=== PATIENT | male | born 1940 | race Caucasian/White ===

== ENCOUNTER 2019-05-07 09:18 | Inpatient (IN) ==
--- NOTE | 2019-04-26 22:14 | PAT Medication Instructions ---
Medication Instructions Date of Service April 26, 2019 Home Medications aspirin 81 mg PO QAM glimepiride 2 mg PO QAM glimepiride 2 mg PO QAM levothyroxine 75 mcg PO QAM metformin 1,000 mg PO BID pantoprazole 40 mg PO QAM rosuvastatin 5 mg PO Q OTHER DAY DO NOT take the morning of surgery glimepiride 2 mg PO QAM glimepiride 2 mg PO QAM metformin 1,000 mg PO BID Take morning of surgery With a small sip of water, OTHERWISE NOTHING TO EAT OR DRINK AFTER MIDNIGHT: aspirin 81 mg PO QAM levothyroxine 75 mcg PO QAM pantoprazole 40 mg PO QAM rosuvastatin 5 mg PO Q OTHER DAY (if scheduled) Take evening before surgery metformin 1,000 mg PO BID Other Notes If you have any questions please call us at [phone] or [phone] or [phone] or [phone]
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
--- NOTE | 2019-04-27 09:14 | XRay Report ---
XR chest Pre-admission PA/Lat HISTORY: Preop. COMPARISON: Chest 08/16/2008. FINDINGS: The lungs are hyperexpanded with apical predominant emphysematous changes. The heart is nor mal in size. There are poststernotomy changes. Old, healed bilateral rib fractures. No pleural effusi ons. No pneumothorax. No focal lung consolidations to suggest pneumonia. An 8 mm nodular density with in the left lower lobe. This may represent a nipple shadow. Mild blunting of the right lateral costop hrenic sulcus. IMPRESSION: An 8 mm nodular density within the left lung base. This favors a nipple shadow. Repeat PA and lateral views of the chest with oblique views and nipple markers are recommended for confirmation. This find ing was called/faxed to the referring physician office following dictation. Electronically signed by: Chun Walker M.D. 04/27/2019 9:13 AM
[2019-04-27 10:54] LABS: Basophils # (auto) 0.01 K/uL (0-0.2); Basophils % (auto) 0.1 %; Eosinophils # (auto) 0.08 K/uL (0-0.5); Eosinophils % (auto) 1.1 %; Hematocrit (blood only) 41.1 % (42-52); Hemoglobin 14.3 g/dL (14.0-18.0); Immature Granulocytes # (auto) 0.02 K/uL (0.00-0.02); Immature Granulocytes % (auto) 0.3 %; Lymphocytes # (auto) 1.49 K/uL (1.2-3.4); Lymphocytes % (auto) 20.1 %; Mean Corpuscular Hemoglobin 34.1 pg (25-34); Mean Corpuscular Hgb Conc 34.8 g/dL (32-36); Mean Corpuscular Volume 98.1 fL (80-100); Mean Platelet Volume 9.7 fL (7.4-10.4); Monocytes # (auto) 0.94 K/uL (0.11-0.59); Monocytes % (auto) 12.7 %; Neutrophils # (auto) 4.86 K/uL (1.4-6.5); Neutrophils % (auto) 65.7 %; Platelet Count 259 K/uL (130-400); RDW Coefficient of Variation 13.2 % (11.5-14.5); RDW Standard Deviation 46.9 fL (36.4-46.3); Red Blood Count 4.19 M/uL (4.7-6.1)
[2019-04-27 11:05] LABS: Appearance Urine Clear (Clear); Blood Urine Negative (Negative); Color Urine Dark Yellow; Glucose Urine UA Negative (Negative); Ketones Urine Trace (Negative); Leukocyte Esterase Urine Negative (Negative); Nitrite Urine Negative (Negative); Protein Urine Negative (Negative); Specific Gravity Urine 1.025 (1.000-1.030); Urobilinogen Urine Negative (Negative)
[2019-04-27 11:07] LABS: BUN Creatinine Ratio 21.3 (10-20); Calcium 9.7 mg/dl (8.5-10.1); Creatinine Clr Calc Pharmacy 58.2 ml/min; Est GFR (African American) 73.6; Est GFR (Non-African American) 63.5; Potassium 4.1 mmol/L (3.5-5.1)
[2019-04-27 11:08] LABS: INR 1.1 (0.9-1.1); Partial Thromboplastin Ratio 0.9; Partial Thromboplastin Time 24.9 Seconds (21.0-31.0); Prothrombin Time 10.9 Seconds (9.0-12.0)
[2019-04-27 11:24] LABS: Bilirubin Urine Negative (Negative); Ictotest Urine Negative (Negative)
[2019-04-27 11:30] LABS: Estimated Average Glucose 111 mg/dl; Hemoglobin A1C 5.5 % (4.5-5.6)
[~2019-05-07 09:18] MED LIST: ACETAMINOPHEN 500 MG TAB PO SCH; CLINDAMYCIN 600 MG/54 ML BAG IV SCH; CeleBREX 200 MG CAP PO SCH; GABAPENTIN 300 MG CAP PO SCH; LR 15ML/HR IV SCH
--- NOTE | 2019-05-07 10:40 | History & Physical Bridge Note ---
Date of Service May 07, 2019 History & Physical Bridge Note I have examined the patient, reviewed the History & Physical and in the interval since the performance of the History & Physical I have noted the following changes of clinical significance: no changes noted
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
[2019-05-07] MEDS ORDERED: MIDAZOLAM HCL 1 MG/ML 2ML VIAL ONE (10:45)
[2019-05-07] MEDS ORDERED: fentaNYL citrate 100 MCG/2 ML VIAL ONE (10:45)
[2019-05-07] MEDS ORDERED: LIDOCAINE HCL 2% 2 ML VIAL/AMP(20MG/ML) INFIL ONE (10:47)
[2019-05-07] MEDS ORDERED: PROPOFOL IV EMULSION 10 MG/ML 20 ML VIAL IV ONE (10:47)
[2019-05-07] MEDS ORDERED: BUPIVACAINE/EPINEPHRINE 0.5% MPF 1:200,000 10 ML VIAL ONE (10:57)
[2019-05-07] MEDS ORDERED: BACITRACIN INJ 50,000 UNIT VIAL ONE (10:57)
[2019-05-07] MEDS ORDERED: HYDROmorphone INJ 2 MG/ML SYR/VIAL IV PRN (11:04)
[2019-05-07] MEDS ORDERED: PROMETHAZINE HCL 12.5 MG in SODIUM CHLORIDE 0.9% 50 ML IV PRN ×2 (11:04→15:51)
[2019-05-07] MEDS ORDERED: ATROPINE SULFATE 0.1 MG/ML 10ML SYR IV PRN (11:04)
[2019-05-07] MEDS ORDERED: fentaNYL citrate 100 MCG/2 ML VIAL IV PRN (11:04)
[2019-05-07] MEDS ORDERED: ePHEDrine sulfate 50 MG/ML AMP IV PRN (11:04)
[2019-05-07] MEDS ORDERED: METOCLOPRAMIDE HCL INJ 5 MG/ML 2 ML VIAL IV PRN ×2 (11:04→15:51)
[2019-05-07] MEDS ORDERED: ONDANSETRON INJ 2 MG/ML 2 ML VIAL IV PRN ×2 (11:04→15:51)
[2019-05-07] MEDS ORDERED: ROCURONIUM BROMIDE 10 MG/ML 5 ML VIAL ONE (12:04)
[2019-05-07] MEDS ORDERED: GLYCOPYRROLATE 0.2 MG/ML VIAL ONE (12:04)
[2019-05-07] MEDS ORDERED: ONDANSETRON INJ 2 MG/ML 2 ML VIAL ONE (12:04)
[2019-05-07] MEDS ORDERED: NEOSTIGMINE METHYLSULFATE 1 MG/ML 10ML VIAL ONE (12:04)
[2019-05-07] MEDS ORDERED: DEXAMETHASONE SOD INJ 4 MG/ML VIAL ONE (12:04)
[2019-05-07] MEDS ORDERED: FLOSEAL HEMOSTATIC MATRIX 10ML TOP ONE (12:14)
[2019-05-07] MEDS ORDERED: ALBUMIN HUMAN 5% 12.5 GM/250 ML VIAL IV ONE (13:34)
--- NOTE | 2019-05-07 14:17 | Operative Report ---
Post Operative Report Pre & Post Diagnosis Operation Date: 05/07/19 11:45 Pre-Op Diagnosis: LUMBAR SPINAL STENOSIS W/NEUROGENIC CLAUDICATION Post-Op Diagnosis: LUMBAR SPINAL STENOSIS W/NEUROGENIC CLAUDICATION I identified the patient and participated in the time-out.: Yes Procedure Operation Date: 05/07/19 11:45 Actual Procedures #1 lumbar decompression with bilateral medial facetectomies and foraminotomies L3-4 L4-5 L5-S1. #2 posterior spinal fusion L3-4 L4-5 L5-S1. #3 placement posterior segmental instrumentation L3-S1. #4 interbody fusion L4-5. #5 placement of peek cage 11 x 26 mm at L4-5 per #6 placement of locally harvested morselized autograft in the posterior lateral gutters. #7 placement infuse collagen sponge, master graft in the posterior lateral gutters and ostial amp in the interbody space. Surgeon Tyler Little, Program Associate [place] Estimated Blood Loss 400 Findings Consistent with Post-Op Diagnosis Specimens None Indications This is a 78-year-old male that presents above-mentioned diagnosis after failing extensive course of nonoperative care is here for surgical intervention. Description of Procedure Patient was met with identified informed consent obtained. Patient was then taken to the operative suite underwent intubation placed in a prone position the Ignacio table on top of the Pablo frame. All bony prominences well-padded eyes inspected to ensure no external pressure placed upon them. This point the lumbar spine was prepped and draped in normal sterile fashion. Sharp dissection with the assistance of Bovie cautery was performed down to and exposing the lamina and transverse processes of L3 L4-5 and sacral ala bilaterally. From caudal cephalad fashion complete laminectomy of L5 L4 L3 was performed including bilateral medial facetectomies and foraminotomies addressing severe spinal stenosis. Pedicle screw was then placed in L3-L4-L5 and S1 levels bilaterally with assistance of fluoroscopy the purposes stephania placed. By way of a transforaminal portion left complete discectomy of L4-5 was performed endplates curetted to subcortical being bone and a 11 x 26 mm peek cage filled with osteo- bone graft tapped in position. The rods were then locked in final position bilaterally. The transverse processes of L3 L4-5 and sacral ala burred to subcortical bleeding bone. Infuse bone placed in the posterior lateral gutters. 15 round NELY drain inserted. Incision was then closed with 1 Vicryl fascia 2-0 Vicryl subcutaneously and 4 Monocryl for final skin closure. Steri-Strips dressings placed. Patient will continue PACU stable addition. Please note [place] was present at the entire procedure involved in patient positioning complex portions of the surgery and final skin closure. Lastly spinal cord monitoring was utilized that the procedure no changes noted. I attest to the content of the Intraoperative Record and any orders documented therein. Any exceptions are noted below.
--- NOTE | 2019-05-07 14:20 | Fluoroscopy Report ---
FL lumbar spine 2-3V CLINICAL HISTORY: 78 years-old Male presenting with L3-S1 DECOMPRESSION AND FUSION. TECHNIQUE: 2 fluoroscopic image(s) recorded as part of an intraoperative procedure. COMPARISON: None. FINDINGS/IMPRESSION: Posterior bilateral transpedicular screw and stephania fixation extending from L3 to S1 with interbody spac er at L4-5 and laminectomy defects at L4 and L5. Mild scoliotic curvature and multilevel degenerative changes evident. Please see surgical report for further details. Fluoroscopy dosage (mGy): 24.60. Fluoroscopy time: 31.4 seconds. Number or time of high level fluoroscopy (HLF), digital spot, or digital subtraction images: 0. ACT 112: Negative or not required by law. Electronically signed by: Joel Talamantes M.D. 05/07/2019 2:19 PM
[2019-05-07] MEDS ORDERED: ONDANSETRON 4 MG OD TAB PO PRN (15:51)
[2019-05-07] MEDS ORDERED: LORazepam 0.5 MG/1 ML VIAL IV PRN (15:51)
[2019-05-07] MEDS ORDERED: LORazepam 0.5 MG TAB PO PRN (15:51)
[2019-05-07] MEDS ORDERED: HYDROmorphone INJ 0.5 MG/0.5 ML SYR IV PRN (15:51)
[2019-05-07] MEDS ORDERED: OXYCODONE HCL IR 5 MG TAB (IMMEDIATE RELEASE) PO PRN (15:51)
[2019-05-07] MEDS ORDERED: ACETAMINOPHEN 500 MG TAB PO PRN (15:51)
[2019-05-07] MEDS ORDERED: MAGNESIUM HYDROXIDE SUSP 30 ML UDC PO PRN (15:51)
[2019-05-07] MEDS ORDERED: DO NOT ADMINISTER FLU VACCINE PRN (15:51)
[2019-05-07] MEDS ORDERED: NALOXONE HCL 0.4 MG/1 ML VIAL/CARP IV PRN (15:51)
[2019-05-07] MEDS ORDERED: HYDROmorphone INJ 1 MG/ML SYRINGE IV PRN (15:51)
[2019-05-07] MEDS ORDERED: FAMOTIDINE 20 MG TAB PO PRN (15:51)
[2019-05-07] MEDS ORDERED: SOD PHOSPHATE/SOD BIPHOSPHATE ENEMA 132 ML BTL PR PRN (15:51)
[2019-05-07] MEDS ORDERED: ALUMINUM/MAGNESIUM SUSP 30 ML UDC PO PRN (15:51)
[2019-05-07] MEDS ORDERED: bisacodyL 10 MG SUPP PR PRN (15:51)
[2019-05-07] MEDS ORDERED: DO NOT ADMINISTER PNEUMOCOCCAL VACCINE PRN (15:51)
[2019-05-07] MEDS ORDERED: ACETAMINOPHEN 1,000 MG/100 ML VIAL IV PRN (15:51)
--- NOTE | 2019-05-07 16:32 | Anesthesiology Progress Note ---
Date of Service May 07, 2019 Anesthesia Post Procedure Vital Signs Vital Signs: Temp Pulse Pulse Pulse Resp BP BP 05/07/19 16:10 87 15 123/74 05/07/19 15:40 36.3 C L 82 14 114/68 05/07/19 15:29 36.4 C L 05/07/19 15:26 83 14 05/07/19 15:25 84 14 121/68 05/07/19 15:21 89 17 05/07/19 15:20 80 17 113/65 05/07/19 15:16 85 15 05/07/19 15:15 83 12 123/72 05/07/19 15:11 88 16 05/07/19 15:10 83 13 127/70 05/07/19 15:06 82 19 05/07/19 15:05 87 18 126/70 05/07/19 15:01 84 15 05/07/19 15:00 87 14 129/72 05/07/19 14:56 83 13 05/07/19 14:55 89 14 128/71 05/07/19 14:51 88 16 05/07/19 14:50 84 14 115/72 05/07/19 14:46 89 21 05/07/19 14:45 87 26 H 116/62 05/07/19 14:44 36.1 C L 84 85 30 H 125/65 125/65 05/07/19 09:59 36.6 C 69 18 158/71 H Pulse Ox 05/07/19 16:10 96 05/07/19 15:40 100 05/07/19 15:29 100 05/07/19 15:26 100 05/07/19 15:25 100 05/07/19 15:21 100 05/07/19 15:20 100 05/07/19 15:16 100 05/07/19 15:15 100 05/07/19 15:11 100 05/07/19 15:10 100 05/07/19 15:06 100 05/07/19 15:05 99 05/07/19 15:01 98 05/07/19 15:00 99 05/07/19 14:56 100 05/07/19 14:55 99 05/07/19 14:51 98 05/07/19 14:50 98 05/07/19 14:46 100 05/07/19 14:45 100 05/07/19 14:44 100 05/07/19 09:59 100 Pain Intensity Back: Pain Intensity: 0 Transfer of Care Handoff Completed per policy Notes Mental Status: alert / awake / arousable and participated in evaluation Patient Amnestic to Procedure: Yes Nausea / Vomiting: adequately controlled Pain: adequately controlled Airway Patency, RR, SpO2: stable & adequate BP & HR: stable & adequate Hydration State: stable & adequate Anesthetic Complications: no major complications apparent
[2019-05-07] MEDS ORDERED: GLUCOSE 40% GEL 15 GM TUBE PO PRN (17:41)
[2019-05-07] MEDS ORDERED: CARBOHYDRATES FOR HYPOGLYCEMIA PO PRN (17:41)
[2019-05-07] MEDS ORDERED: GLUCOSE 10 TABS/TUBE PO PRN (17:41)
[2019-05-07] MEDS ORDERED: DEXTROSE 50% 50 ML SYRINGE IV PRN (17:41)
[2019-05-07] MEDS ORDERED: GLUCAGON FOR INJ 1 MG VIAL SQ PRN (17:41)
[2019-05-07] MEDS ORDERED: LANTUS PER UNIT CHARGE SQ ONE (18:00)
[2019-05-07] MEDS: CEFAZOLIN 2000MG 2,000 MG/15 ML SYR IV SCH (18:06)
[2019-05-07] MEDS: INSULIN ASPART 100 UNITS/ML 3 ML PEN SC SCH ×2 (18:39→20:59)
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
[2019-05-07] MEDS: SODIUM CHLORIDE 0.9% 1000ML 1,000 ML IV SCH (20:57)
[2019-05-07] MEDS: DOCUSATE SODIUM/SENNA 50/8.6MG TAB PO SCH (20:59)
[2019-05-08] MEDS: CEFAZOLIN 2000MG 2,000 MG/15 ML SYR IV SCH (00:07)
[2019-05-08] MEDS: SODIUM CHLORIDE 0.9% 1000ML 1,000 ML IV SCH (03:59)
[2019-05-08] MEDS: POLYETHYLENE (MIRALAX) 17 GM PACK PO SCH ×4 (05:56→23:55)
[2019-05-08] MEDS: LEVOTHYROXINE SODIUM 75 MCG TABLET PO SCH (05:56)
[2019-05-08 06:37] LABS: Basophils # (auto) 0.01 K/uL (0-0.2); Basophils % (auto) 0.1 %; Eosinophils # (auto) 0.04 K/uL (0-0.5); Eosinophils % (auto) 0.4 %; Hematocrit (blood only) 26.4 % (42-52); Hemoglobin 9.3 g/dL (14.0-18.0); Immature Granulocytes # (auto) 0.02 K/uL (0.00-0.02); Immature Granulocytes % (auto) 0.2 %; Lymphocytes # (auto) 1.54 K/uL (1.2-3.4); Lymphocytes % (auto) 17.3 %; Mean Corpuscular Hemoglobin 34.2 pg (25-34); Mean Corpuscular Hgb Conc 35.2 g/dL (32-36); Mean Corpuscular Volume 97.1 fL (80-100); Mean Platelet Volume 9.2 fL (7.4-10.4); Monocytes # (auto) 1.03 K/uL (0.11-0.59); Monocytes % (auto) 11.6 %; Neutrophils # (auto) 6.27 K/uL (1.4-6.5); Neutrophils % (auto) 70.4 %; Platelet Count 162 K/uL (130-400); RDW Coefficient of Variation 13.2 % (11.5-14.5); RDW Standard Deviation 45.8 fL (36.4-46.3); Red Blood Count 2.72 M/uL (4.7-6.1); White Blood Count 8.91 K/uL (4.8-10.8)
[2019-05-08 07:11] LABS: BUN Creatinine Ratio 16.9 (10-20); Est GFR (African American) 75.2; Est GFR (Non-African American) 64.9
[2019-05-08] MEDS ORDERED: SODIUM CHLORIDE 0.9% 1000ML 1,000 ML IV ONE ×2 (08:38→21:41)
[2019-05-08] MEDS: ASPIRIN 81 MG CHEW PO SCH (08:50)
[2019-05-08] MEDS: PANTOprazole 40 MG TAB PO SCH (08:50)
[2019-05-08] MEDS: INSULIN ASPART 100 UNITS/ML 3 ML PEN SC SCH ×4 (08:51→21:02)
[2019-05-08] MEDS ORDERED: GLIMEPIRIDE 2 MG TAB PO SCH (09:00)
--- NOTE | 2019-05-08 09:22 | Hospitalist Progress Note ---
Date of Service May 08, 2019 Assessment & Plan (1) Spinal stenosis, lumbar region with neurogenic claudication: - POD#1 L3-S1 decompression and fusion by Dr. Little - activity and wound care orders as per ortho - pain control with bowel regimen - PT/OT - monitor H/H for acute blood loss anemia and transfuse blood products PRN Acute blood loss anemia -On admission hemoglobin 14.3, currently 9.3 -Patient has no chest pain, palpitation, shortness of breath however he felt lightheaded this morning -Says he often gets lightheaded when changing position, from sitting to standing - EBL 420 cc - H&H ordered stat, will monitor Orthostatic hypotension -Patient has history of orthostatic hypotension, says that he lies in recliner, and when he is getting up he needs to wait and stand up slowly -We will continue to monitor (2) Diabetes mellitus, type 2: -Hgb A1c 5.5 09/2018 -Hold home oral agents and utilize Lantus and NovoLog per protocol hospitalized -Monitor closely for hyperglycemia due to steroids received intraoperatively (3) CAD (coronary artery disease): -Appears stable, no reports of chest pain -Continue aspirin and statin -Not on beta-klever, ABILIO/ARB secondary to bradycardia and hypotension in the past -Follows with [facility] cardiology (4) GERD (gastroesophageal reflux disease): -Continue PPI (5) DVT prophylaxis: -Teds/SCDs as per spine orthopedics Thank you for this consultation. We will follow the patient with you during their hospital stay. You can reach a member of the [facility]ist Team 09/12 via pager @ [phone]. Subjective This morning patient was sitting up in the bed, and felt " not himself", per description patient became lightheaded, and nurse was notified. Blood pressure was checked at the time, which was significantly low, not currently recorded in the chart, however reported as systolic blood pressure in 60s. Soon after though patient felt himself again, physician was notified and normal saline bolus was ordered. At this moment, some of the normal saline has been infused, patient is sitting up in bed, ate his breakfast, alert oriented and feeling well. Per the last set of vitals from his nurse, blood pressure 116/69, heart rate 94, 100% on room air. However per review of his chart, his hemoglobin is now just above 9, on admission hemoglobin was above 14. Patient underwent back surgery, has the drain placed, total of 420cc serosanguineous fluid has drained. Currently there is about 50 cc in his drain, which was exchanged at 6 AM. Normal saline infusion was stopped, H&H stat was ordered. Review of Systems 2 Review of Systems: All systems reviewed & are unremarkable except as noted in HPI & below Constitutional: + fatigue; no fever and no chills Respiratory: no cough, no dyspnea and no pain on inspiration Cardiovascular: no chest pain, no palpitations and no edema Gastrointestinal: no abdominal pain, no nausea and no vomiting Physical Exam Physical Exam: Constitutional: Elderly male, sitting up in bed, currently in no acute distress Eyes: PERRL, EOMI, conjunctivae normal, anicteric sclerae ENMT: external ear and nose normal, oropharynx normal Respiratory: normal respiratory effort, lungs clear to auscultation Cardiovascular: regular rate and regular rhythm Vessels: normal peripheral pulses Extremities: no edema Gastrointestinal (Abdomen): normal bowel sounds, soft, nontender, nondistended, no guarding Musculoskeletal: no cyanosis or clubbing, extremities motor strength 5/5 S/p back surgery, moves extremities spontaneously without difficulty, drain in place draining serosang. fluid (now about 50cc / in last 3.5hrs) Back: clean dressings applied over lower spine, no sign edema, erythema noted Skin: no rashes, warm and dry Neurologic: PERRL, EOMI, accommodation nl, no face palsy, no dysarthria Psychiatric: A+Ox3, euthymic affect Results & Data Vital Signs (Past 12 Hours) Vital Signs Temp Pulse Resp BP Pulse Ox 05/08/19 07:28 36.8 C 88 16 110/59 L 98 05/08/19 02:53 36.7 C 86 16 102/63 99 05/08/19 00:08 36.5 C 05/07/19 22:54 83 16 104/67 96 Laboratory Results 05/08/19 05/08/19 05/07/19 Range/Units 06:09 06:09 20:49 WBC 8.91 (4.8-10.8) K/uL RBC 2.72 L (4.7-6.1) M/uL Hgb 9.3 L (14.0-18.0) g/dL Hct 26.4 L (42-52) % MCV 97.1 (80-100) fL MCH 34.2 H (25-34) pg MCHC 35.2 (32-36) g/dL RDW Std Deviation 45.8 (36.4-46.3) fL RDW Coeff of Mara 13.2 (11.5-14.5) % Plt Count 162 (130-400) K/uL MPV 9.2 (7.4-10.4) fL Immature Gran % (Auto) 0.2 % Neut % (Auto) 70.4 % Lymph % (Auto) 17.3 % Wilson % (Auto) 11.6 % Eos % (Auto) 0.4 % Baso % (Auto) 0.1 % Immature Gran # (Auto) 0.02 (0.00-0.02) K/uL Neut # (Auto) 6.27 (1.4-6.5) K/uL Lymph # (Auto) 1.54 (1.2-3.4) K/uL Wilson # (Auto) 1.03 H (0.11-0.59) K/uL Eos # (Auto) 0.04 (0-0.5) K/uL Baso # (Auto) 0.01 (0-0.2) K/uL Sodium 134 L (136-145) mmol/L Potassium 4.0 (3.5-5.1) mmol/L Chloride 100 (98-107) mmol/L Carbon Dioxide 29 (21-32) mmol/L Anion Gap 5.0 (3-11) BUN 19 H (7-18) mg/dl Creatinine 1.10 (0.6-1.4) mg/dl Est Cr Clr Drug Dosing 60.0 ml/min Est GFR ( Amer) 75.2 Est GFR (Non-Af Amer) 64.9 BUN/Creatinine Ratio 16.9 (10-20) Glucose 134 H (70-99) mg/dl POC Glucose 238 H (70-99) Calcium 8.0 L (8.5-10.1) mg/dl Blood Type Antibody Screen Crossmatch 05/07/19 05/07/19 05/07/19 Range/Units 17:21 15:03 09:53 WBC (4.8-10.8) K/uL RBC (4.7-6.1) M/uL Hgb (14.0-18.0) g/dL Hct (42-52) % MCV (80-100) fL MCH (25-34) pg MCHC (32-36) g/dL RDW Std Deviation (36.4-46.3) fL RDW Coeff of Mara (11.5-14.5) % Plt Count (130-400) K/uL MPV (7.4-10.4) fL Immature Gran % (Auto) % Neut % (Auto) % Lymph % (Auto) % Wilson % (Auto) % Eos % (Auto) % Baso % (Auto) % Immature Gran # (Auto) (0.00-0.02) K/uL Neut # (Auto) (1.4-6.5) K/uL Lymph # (Auto) (1.2-3.4) K/uL Wilson # (Auto) (0.11-0.59) K/uL Eos # (Auto) (0-0.5) K/uL Baso # (Auto) (0-0.2) K/uL Sodium (136-145) mmol/L Potassium (3.5-5.1) mmol/L Chloride (98-107) mmol/L Carbon Dioxide (21-32) mmol/L Anion Gap (3-11) BUN (7-18) mg/dl Creatinine (0.6-1.4) mg/dl Est Cr Clr Drug Dosing ml/min Est GFR ( Amer) Est GFR (Non-Af Amer) BUN/Creatinine Ratio (10-20) Glucose (70-99) mg/dl POC Glucose 183 H 155 H 101 H (70-99) Calcium (8.5-10.1) mg/dl Blood Type Antibody Screen Crossmatch 05/07/19 Range/Units 09:52 WBC (4.8-10.8) K/uL RBC (4.7-6.1) M/uL Hgb (14.0-18.0) g/dL Hct (42-52) % MCV (80-100) fL MCH (25-34) pg MCHC (32-36) g/dL RDW Std Deviation (36.4-46.3) fL RDW Coeff of Mara (11.5-14.5) % Plt Count (130-400) K/uL MPV (7.4-10.4) fL Immature Gran % (Auto) % Neut % (Auto) % Lymph % (Auto) % Wilson % (Auto) % Eos % (Auto) % Baso % (Auto) % Immature Gran # (Auto) (0.00-0.02) K/uL Neut # (Auto) (1.4-6.5) K/uL Lymph # (Auto) (1.2-3.4) K/uL Wilson # (Auto) (0.11-0.59) K/uL Eos # (Auto) (0-0.5) K/uL Baso # (Auto) (0-0.2) K/uL Sodium (136-145) mmol/L Potassium (3.5-5.1) mmol/L Chloride (98-107) mmol/L Carbon Dioxide (21-32) mmol/L Anion Gap (3-11) BUN (7-18) mg/dl Creatinine (0.6-1.4) mg/dl Est Cr Clr Drug Dosing ml/min Est GFR ( Amer) Est GFR (Non-Af Amer) BUN/Creatinine Ratio (10-20) Glucose (70-99) mg/dl POC Glucose (70-99) Calcium (8.5-10.1) mg/dl Blood Type A Negative Antibody Screen NEGATIVE Crossmatch See Detail
--- NOTE | 2019-05-08 09:31 | Orthopedic Progress Note ---
Date of Service May 08, 2019 Assessment & Plan (1) Spinal stenosis, lumbar region with neurogenic claudication: At this time will initiate physical therapy monitor NELY output hopefully discharge home early next week. Present on Admission?: Yes Physical Exam Physical Exam: Back pain controlled leg symptoms improved. Is comfortable has good strength testing. Results & Data Vital Signs (Past 12 Hours) Vital Signs Temp Pulse Resp BP Pulse Ox 05/08/19 07:28 36.8 C 88 16 110/59 L 98 05/08/19 02:53 36.7 C 86 16 102/63 99 05/08/19 00:08 36.5 C 05/07/19 22:54 83 16 104/67 96
[2019-05-08 10:02] LABS: Hemoglobin 9.2 g/dL (14.0-18.0)
[2019-05-08] MEDS ORDERED: SODIUM CHLORIDE 0.9% 1000ML 1,000 ML IV SCH (10:15)
--- NOTE | 2019-05-08 16:15 | Anesthesiology Progress Note ---
Date of Service May 08, 2019 Anesthesia Post Procedure Vital Signs Vital Signs: Temp Pulse Resp BP Pulse Ox 05/08/19 15:39 37.2 C 98 H 17 118/68 97 05/08/19 10:15 86 117/68 05/08/19 08:55 94 H 16 116/69 100 05/08/19 08:35 111 H 94/59 L 05/08/19 08:30 105 H 76/58 L 05/08/19 08:25 114 H 79/39 L 05/08/19 08:20 114 H 18 65/54 L 05/08/19 07:28 36.8 C 88 16 110/59 L 98 05/08/19 02:53 36.7 C 86 16 102/63 99 05/08/19 00:08 36.5 C 05/07/19 22:54 83 16 104/67 96 05/07/19 18:54 36.6 C 87 15 104/65 95 05/07/19 17:40 36.4 C L 96 H 18 153/82 H 100 05/07/19 16:41 36.4 C L 86 16 114/70 100 Pain Intensity Back: Pain Intensity: 0 Transfer of Care Handoff Completed per policy Notes Mental Status: alert / awake / arousable and participated in evaluation Patient Amnestic to Procedure: Yes Nausea / Vomiting: adequately controlled Pain: adequately controlled Airway Patency, RR, SpO2: stable & adequate BP & HR: stable & adequate Hydration State: stable & adequate Anesthetic Complications: no major complications apparent
[2019-05-08 16:37] LABS: Hematocrit (blood only) 24.8 % (42-52); Hemoglobin 8.7 g/dL (14.0-18.0)
[2019-05-08] MEDS: TRAMADOL HCL 50 MG TABLET PO PRN (17:33)
[2019-05-08] MEDS: DOCUSATE SODIUM/SENNA 50/8.6MG TAB PO SCH (21:01)
[2019-05-08] MEDS: ROSUVASTATIN CALCIUM 5 MG TAB PO SCH (21:01)
[2019-05-08 22:54] LABS: Calcium 7.9 mg/dl (8.5-10.1); Creatinine Clr Calc Pharmacy 57.4 ml/min; Est GFR (African American) 71.2; Est GFR (Non-African American) 61.5; Magnesium 1.7 mg/dl (1.8-2.4)
[2019-05-09] MEDS ORDERED: MAGNESIUM SULFATE / D5W 1 GM/100 ML BAG IV ONE (00:15)
[2019-05-09] MEDS ORDERED: NSS + 20MEQ KCL 20 MEQ/1,000 ML BAG IV ONE (00:16)
[2019-05-09 05:58] LABS: Hematocrit (blood only) 25.7 % (42-52); Hemoglobin 9.2 g/dL (14.0-18.0); Mean Corpuscular Hemoglobin 34.7 pg (25-34); Mean Corpuscular Hgb Conc 35.8 g/dL (32-36); Mean Platelet Volume 9.1 fL (7.4-10.4); Platelet Count 154 K/uL (130-400); RDW Coefficient of Variation 13.4 % (11.5-14.5); RDW Standard Deviation 47.3 fL (36.4-46.3); Red Blood Count 2.65 M/uL (4.7-6.1); White Blood Count 10.97 K/uL (4.8-10.8)
[2019-05-09] MEDS: LEVOTHYROXINE SODIUM 75 MCG TABLET PO SCH (06:14)
[2019-05-09] MEDS: POLYETHYLENE (MIRALAX) 17 GM PACK PO SCH ×3 (06:14→17:44)
[2019-05-09 06:32] LABS: BUN Creatinine Ratio 16.6 (10-20); Calcium 8.5 mg/dl (8.5-10.1); Creatinine Clr Calc Pharmacy 62.3 ml/min; Est GFR (African American) 78.6; Est GFR (Non-African American) 67.8; Potassium 4.1 mmol/L (3.5-5.1)
[2019-05-09] MEDS ORDERED: TAMSULOSIN HCL 0.4 MG CAP PO ONE (07:51)
--- NOTE | 2019-05-09 07:54 | Hospitalist Progress Note ---
Date of Service May 09, 2019 Assessment & Plan (1) Spinal stenosis, lumbar region with neurogenic claudication: - POD#2 L3-S1 decompression and fusion by Dr. Little - activity and wound care orders as per ortho, patient ambulating in the hallway today (05/09) - pain control, bowel regimen - PT/OT - monitor H/H for acute blood loss anemia and transfuse blood products PRN Acute blood loss anemia -On admission hemoglobin 14.3, currently ~9 (stable since yesterday) -Patient has no chest pain, palpitations, shortness of breath however he felt lightheaded yesterday, denies any dizziness or lightheadedness today -Says he often gets lightheaded when changing position, from sitting to standing - EBL total 610 cc - H&H re-checked - stable, will cont. monitor - Recommend to follow-up with his PCP, and obtain CBC within 1 week Orthostatic hypotension -Patient has history of orthostatic hypotension, says that he lies in recliner, and when he is getting up he needs to wait and stand up slowly -We will continue to monitor, no issues today (05/09) (2) Diabetes mellitus, type 2: -Hgb A1c 5.5 09/2018 -Hold home oral agents and utilize Lantus and NovoLog per protocol hospitalized -Monitor closely for hyperglycemia due to steroids received intraoperatively (3) CAD (coronary artery disease): -Appears stable, no reports of chest pain -Continue aspirin and statin -Not on beta-klever, ABILIO/ARB secondary to bradycardia and hypotension in the past -Follows with [facility] cardiology (4) GERD (gastroesophageal reflux disease): -Continue PPI (5) DVT prophylaxis: -Teds/SCDs as per spine orthopedics Thank you for this consultation. We will follow the patient with you during their hospital stay. You can reach a member of the [facility] Hospitalist Team 09/12 via pager @ [phone]. Subjective No acute events overnight. Patient is walking in the hallway, without much difficulty, coming back to room so I could examine him. Sits in the chair, denies any chest pain, shortness of breath, nausea, lightheadedness or dizziness. Also denies any abdominal pain, no BM yet, but passing flatus. Yesterday difficulty voiding, after Jenkins removed. Voided by himself then this morning. Review of Systems Review of Systems: All systems reviewed & are unremarkable except as noted in HPI & below Constitutional: no fever, no chills and no fatigue Respiratory: no cough, no dyspnea and no pain on inspiration Cardiovascular: no chest pain, no palpitations and no edema Gastrointestinal: no abdominal pain, no nausea and no vomiting Physical Exam Physical Exam: Constitutional: Elderly male, sitting up in chair (walking in hallway right before), currently in no acute distress Eyes: PERRL, EOMI, conjunctivae normal, anicteric sclerae ENMT: external ear and nose normal, oropharynx normal Respiratory: normal respiratory effort, lungs clear to auscultation Cardiovascular: regular rate and regular rhythm Vessels: normal peripheral pulses Extremities: no edema Gastrointestinal (Abdomen): normal bowel sounds, soft, nontender, nondistended, no guarding Musculoskeletal: no cyanosis or clubbing, extremities motor strength 5/5 S/p back surgery, moves extremities spontaneously without difficulty, drain in place draining serosang. fluid Back: clean dressings applied over lower spine, no sign edema, erythema noted Skin: no rashes, warm and dry Neurologic: PERRL, EOMI, accommodation nl, no face palsy, no dysarthria Psychiatric: A+Ox3, euthymic affect Results & Data Vital Signs (Past 12 Hours) Vital Signs Temp Pulse Resp BP Pulse Ox 05/09/19 07:18 36.8 C 86 18 93/52 L 99 05/08/19 23:15 37.1 C 94 H 16 114/66 100 05/08/19 21:28 110 H 102/62 05/08/19 21:25 128 H 79/37 L Laboratory Results 05/09/19 05/09/19 05/08/19 Range/Units 05:46 05:46 22:29 WBC 10.97 H (4.8-10.8) K/uL RBC 2.65 L (4.7-6.1) M/uL Hgb 9.2 L (14.0-18.0) g/dL Hct 25.7 L (42-52) % MCV 97.0 (80-100) fL MCH 34.7 H (25-34) pg MCHC 35.8 (32-36) g/dL RDW Std Deviation 47.3 H (36.4-46.3) fL RDW Coeff of Mara 13.4 (11.5-14.5) % Plt Count 154 (130-400) K/uL MPV 9.1 (7.4-10.4) fL Sodium 136 (136-145) mmol/L Potassium 4.1 (3.5-5.1) mmol/L Chloride 105 (98-107) mmol/L Carbon Dioxide 25 (21-32) mmol/L Anion Gap 6.0 (3-11) BUN 18 (7-18) mg/dl Creatinine 1.06 (0.6-1.4) mg/dl Est Cr Clr Drug Dosing 62.3 ml/min Est GFR ( Amer) 78.6 Est GFR (Non-Af Amer) 67.8 BUN/Creatinine Ratio 16.6 (10-20) Glucose 208 H (70-99) mg/dl POC Glucose (70-99) Lactate 1.8 (0.4-2.0) mmol/L Calcium 8.5 (8.5-10.1) mg/dl Magnesium (1.8-2.4) mg/dl 05/08/19 05/08/19 05/08/19 Range/Units 22:29 20:43 17:14 WBC (4.8-10.8) K/uL RBC (4.7-6.1) M/uL Hgb (14.0-18.0) g/dL Hct (42-52) % MCV (80-100) fL MCH (25-34) pg MCHC (32-36) g/dL RDW Std Deviation (36.4-46.3) fL RDW Coeff of Mara (11.5-14.5) % Plt Count (130-400) K/uL MPV (7.4-10.4) fL Sodium 135 L (136-145) mmol/L Potassium 4.0 (3.5-5.1) mmol/L Chloride 102 (98-107) mmol/L Carbon Dioxide 28 (21-32) mmol/L Anion Gap 4.0 (3-11) BUN 20 H (7-18) mg/dl Creatinine 1.15 (0.6-1.4) mg/dl Est Cr Clr Drug Dosing 57.4 ml/min Est GFR ( Amer) 71.2 Est GFR (Non-Af Amer) 61.5 BUN/Creatinine Ratio 17.0 (10-20) Glucose 158 H (70-99) mg/dl POC Glucose 202 H 174 H (70-99) Lactate (0.4-2.0) mmol/L Calcium 7.9 L (8.5-10.1) mg/dl Magnesium 1.7 L (1.8-2.4) mg/dl 05/08/19 05/08/19 05/08/19 Range/Units 16:08 12:24 09:34 WBC (4.8-10.8) K/uL RBC (4.7-6.1) M/uL Hgb 8.7 L 9.2 L (14.0-18.0) g/dL Hct 24.8 L 26.0 L (42-52) % MCV (80-100) fL MCH (25-34) pg MCHC (32-36) g/dL RDW Std Deviation (36.4-46.3) fL RDW Coeff of Mara (11.5-14.5) % Plt Count (130-400) K/uL MPV (7.4-10.4) fL Sodium (136-145) mmol/L Potassium (3.5-5.1) mmol/L Chloride (98-107) mmol/L Carbon Dioxide (21-32) mmol/L Anion Gap (3-11) BUN (7-18) mg/dl Creatinine (0.6-1.4) mg/dl Est Cr Clr Drug Dosing ml/min Est GFR ( Amer) Est GFR (Non-Af Amer) BUN/Creatinine Ratio (10-20) Glucose (70-99) mg/dl POC Glucose 155 H (70-99) Lactate (0.4-2.0) mmol/L Calcium (8.5-10.1) mg/dl Magnesium (1.8-2.4) mg/dl 05/08/19 Range/Units 08:14 WBC (4.8-10.8) K/uL RBC (4.7-6.1) M/uL Hgb (14.0-18.0) g/dL Hct (42-52) % MCV (80-100) fL MCH (25-34) pg MCHC (32-36) g/dL RDW Std Deviation (36.4-46.3) fL RDW Coeff of Mara (11.5-14.5) % Plt Count (130-400) K/uL MPV (7.4-10.4) fL Sodium (136-145) mmol/L Potassium (3.5-5.1) mmol/L Chloride (98-107) mmol/L Carbon Dioxide (21-32) mmol/L Anion Gap (3-11) BUN (7-18) mg/dl Creatinine (0.6-1.4) mg/dl Est Cr Clr Drug Dosing ml/min Est GFR ( Amer) Est GFR (Non-Af Amer) BUN/Creatinine Ratio (10-20) Glucose (70-99) mg/dl POC Glucose 142 H (70-99) Lactate (0.4-2.0) mmol/L Calcium (8.5-10.1) mg/dl Magnesium (1.8-2.4) mg/dl Medications Administered Current Inpatient Medications Acetaminophen (Tylenol) 1,000 mg PO Q8H PRN PRN Reason: MILD Pain Rating 1,2,3 Stop: 06/06/19 15:50 Al Hydrox/Mg Hydrox/Simethicone (Maalox) 30 ml PO Q6H PRN PRN Reason: Dyspepsia Stop: 06/06/19 15:50 Aspirin ([facility]in Chew) [facility] [place] [place] Stop: 06/07/19 08:59 Last Admin: 05/08/19 08:50 Dose: 81 mg Documented by: Bisacodyl (Dulcolax) 10 mg [place] DAILY PRN PRN Reason: Constipation Stop: 06/06/19 15:50 Dextrose (Dextrose 50%) 25 - 50 ml IV UD PRN; Protocol PRN Reason: Hypoglycemia Protocol Stop: 06/06/19 17:40 Diphenhydramine HCl (Benadryl Capsule) 25 mg PO Q6H PRN PRN Reason: Allergic Rhinitis/Insomnia Stop: 06/06/19 15:50 Famotidine (Pepcid) 20 mg PO Q12H PRN PRN Reason: Dyspepsia Stop: 06/06/19 15:50 Glucagon (Glucagen) 1 mg SQ UD PRN; Protocol PRN Reason: Hypoglycemia Protocol Stop: 06/06/19 17:40 Glucose (Dex4 Glucose) 4 - 8 tabs PO UD PRN; Protocol PRN Reason: Hypoglycemia Protocol Stop: 06/06/19 17:40 Glucose (Glucose 40%) 15 - 30 gm PO UD PRN; Protocol PRN Reason: Hypoglycemia Protocol Stop: 06/06/19 17:40 Hydromorphone HCl (Dilaudid) 0.5 mg IV Q3H PRN PRN Reason: moderate pain (scale 4-6) Stop: 05/21/19 15:50 Hydromorphone HCl (Dilaudid) 1 mg IV Q3H PRN PRN Reason: severe pain (scale 7-10) Stop: 05/21/19 15:50 Hydroxyzine HCl (Vistaril) 25 mg PO Q8H PRN PRN Reason: Anxiety Stop: 06/06/19 15:50 Lorazepam (Ativan) 0.5 mg in 1 mls @ 0.5 mls/min IV Q8H PRN PRN Reason: Sedation/Anxiety Stop: 06/06/19 15:50 Promethazine HCl 12.5 mg/ (Sodium Chloride) 50.5 mls @ 204 mls/hr IV Q6H PRN PRN Reason: Nausea &/or Vomiting Stop: 06/06/19 15:50 Potassium Chloride/Sodium Chloride (Normal Saline W/20 Meq Kcl) 20 meq in 1,000 mls @ 80 mls/hr IV .[id number] ONE Stop: 05/09/19 12:45 Last Admin: 05/09/19 00:25 Dose: 80 mls/hr Documented by: Influenza Virus Vaccine Quadrival (Flu Vaccine, Do Not Administer) 1 ea N/A PRN PRN PRN Reason: Notification Stop: 06/06/19 15:50 Insulin Aspart (Novolog Flexpen) 0 units SC ACHS [facility] Stop: 06/06/19 17:59 Last Admin: 05/08/19 21:02 Dose: 3 units Documented by: Levothyroxine Sodium (Synthroid) 75 mcg PO DAILYBB [facility] Stop: 06/07/19 06:29 Last Admin: 05/09/19 06:14 Dose: 75 mcg Documented by: Lorazepam (Ativan) 0.5 mg PO Q8H PRN PRN Reason: Sedation/Anxiety Stop: 06/06/19 15:50 Magnesium Hydroxide (Milk Of Magnesia) 30 ml PO DAILY PRN PRN Reason: Constipation Stop: 06/06/19 15:50 Metoclopramide HCl (Reglan) 10 mg IV Q6H PRN PRN Reason: Nausea &/or Vomiting Stop: 06/06/19 15:50 Miscellaneous (Carbohydrates For Hypoglycemia) 15 - 30 gm PO UD PRN PRN Reason: Hypoglycemia Protocol Stop: 06/06/19 17:40 Naloxone HCl (Narcan) 0.1 mg IV Q5M PRN; Protocol PRN Reason: Oversedation/Resp Depression Stop: 06/06/19 15:50 Ondansetron HCl (Zofran) 4 mg IV Q6H PRN PRN Reason: Nausea &/or Vomiting Stop: 06/06/19 15:50 Ondansetron HCl (Zofran Odt) 4 mg PO Q6H PRN PRN Reason: Nausea Stop: 06/06/19 15:50 Oxycodone HCl (Roxicodone Immediate Rel) 5 - 10 mg PO Q4H PRN PRN Reason: Moderate-Severe Pain Stop: 05/21/19 15:50 Pantoprazole Sodium (Protonix) 40 mg PO QAM [facility] Stop: 06/07/19 08:59 Last Admin: 05/08/19 08:50 Dose: 40 mg Documented by: Pneumococcal Polyvalent Vaccine (Pneumococcal Vacc, Do Not Administer) 1 ea N/A PRN PRN PRN Reason: Notification Stop: 06/06/19 15:50 Polyethylene Glycol (Miralax Powder Packet) 17 gm PO Q6 [facility] Stop: 06/07/19 05:59 Last Admin: 05/09/19 06:14 Dose: 17 gm Documented by: Rosuvastatin Calcium (Crestor) 5 mg PO Q48H [facility] Stop: 06/07/19 19:29 Last Admin: 05/08/19 21:01 Dose: 5 mg Documented by: Senna/Docusate Sodium (Senokot S) 2 tab PO HS [facility] Stop: 06/06/19 20:59 Last Admin: 05/08/19 21:01 Dose: 2 tab Documented by: Sodium Biphosphate/Sodium Phosphate (Fleet Enema) 132 ml [place] ONE PRN PRN Reason: Constipation Stop: 06/06/19 15:50 Tramadol HCl (Ultram) 50 - 100 mg PO Q4H PRN PRN Reason: Moderate-Severe Pain Stop: 06/06/19 15:50 Last Admin: 05/08/19 17:33 Dose: 50 mg Documented by:
[2019-05-09] MEDS: INSULIN ASPART 100 UNITS/ML 3 ML PEN SC SCH ×4 (08:30→21:44)
[2019-05-09] MEDS: PANTOprazole 40 MG TAB PO SCH (08:32)
[2019-05-09] MEDS: ASPIRIN 81 MG CHEW PO SCH (08:32)
--- NOTE | 2019-05-09 09:31 | Orthopedic Progress Note ---
Date of Service May 09, 2019 Assessment & Plan (1) Spinal stenosis, lumbar region with neurogenic claudication: At this time we will continue physical therapy monitor his NELY output anticipate discharge home Friday or Friday. Present on Admission?: Yes Subjective Back pain is controlled leg symptoms improved. He feels much stronger today. Physical Exam Physical Exam: On exam he is sitting up in bed. Appears comfortable. Excellent strength testing. Results & Data Vital Signs (Past 12 Hours) Vital Signs Temp Pulse Resp BP Pulse Ox 05/09/19 07:18 36.8 C 86 18 93/52 L 99 05/08/19 23:15 37.1 C 94 H 16 114/66 100
[2019-05-09] MEDS: DOCUSATE SODIUM/SENNA 50/8.6MG TAB PO SCH (21:47)
[2019-05-10] MEDS: TRAMADOL HCL 50 MG TABLET PO PRN (00:26)
[2019-05-10 05:18] LABS: Appearance Urine Clear (Clear); Bacteria Urine Automated Negative (Negative); Bilirubin Urine Negative (Negative); Blood Urine 1+ (Negative); Color Urine Yellow; Epithelial Cell Urine Auto 0-5 /lpf (0-5); Glucose Urine UA Negative (Negative); Ketones Urine Trace (Negative); Leukocyte Esterase Urine Negative (Negative); Nitrite Urine Negative (Negative); Protein Urine Negative (Negative); RBC Urine Automated 0-4 /hpf (0-4); Specific Gravity Urine 1.007 (1.000-1.030); Urobilinogen Urine Negative (Negative); WBC Urine Automated 0 /hpf (0-5); pH Urine 5.5 (4.5-7.5)
[2019-05-10] MEDS: LEVOTHYROXINE SODIUM 75 MCG TABLET PO SCH (05:51)
--- NOTE | 2019-05-10 07:27 | Hospitalist Progress Note ---
Date of Service May 10, 2019 Assessment & Plan (1) Spinal stenosis, lumbar region with neurogenic claudication: - POD#3 L3-S1 decompression and fusion by Dr. Little - activity and wound care orders as per ortho, patient ambulating in the hallway (05/09) - pain control, bowel regimen - PT/OT - monitor H/H for acute blood loss anemia and transfuse blood products PRN Acute blood loss anemia -On admission hemoglobin 14.3, yesterday ~9, now 8.0 -Patient has no chest pain, palpitations, shortness of breath however he felt lightheaded yesterday, denies any dizziness or lightheadedness -Says he often gets lightheaded when changing position, from sitting to standing - EBL 20cc in last 8 hrs (yesterday AM total 610 cc) - We will recheck H&H today, goal Hgb >8 given hx of CAD - Recommend to follow-up with his PCP, and obtain CBC within 1 week Orthostatic hypotension -Patient has history of orthostatic hypotension, says that he lies in recliner, and when he is getting up he needs to wait and stand up slowly -We will continue to monitor, currently no issues (2) Diabetes mellitus, type 2: -Hgb A1c 5.5 09/2018 -Hold home oral agents and utilize Lantus and NovoLog per protocol hospitalized -Monitor closely for hyperglycemia due to steroids received intraoperatively (3) CAD (coronary artery disease): -Appears stable, no reports of chest pain -Continue aspirin and statin -Not on beta-klever, ABILIO/ARB secondary to bradycardia and hypotension in the past -Follows with [facility] cardiology (4) GERD (gastroesophageal reflux disease): -Continue PPI (5) DVT prophylaxis: -Teds/SCDs as per spine orthopedics Thank you for this consultation. We will follow the patient with you during their hospital stay. You can reach a member of the [facility] Hospitalist Team 09/12 via pager @ [phone]. Subjective Patient complained of suprapubic tenderness, last night, UA was obtained, negative. Currently sitting in a chair, comfortable, in no acute distress. He says that he still has little bit of tenderness in suprapubic area, bladder scanned by nurse, shows bladder volume of 1.2 L. Yesterday was voiding by himself, but previously needed to straight cath, after Jenkins catheter was removed. Otherwise denies fevers, chills, chest pain, shortness of breath, abdominal pain, nausea or vomiting. This a.m. hemoglobin 8.0, decreased from yesterday, yesterday stable around 9. Not draining a significant amount, about 20 cc in past 8 hours from surgical site. Repeat H&H ordered. Review of Systems Review of Systems: All systems reviewed & are unremarkable except as noted in HPI & below Constitutional: no fever, no chills and no fatigue Respiratory: no cough and no dyspnea Cardiovascular: no chest pain, no palpitations and no edema Gastrointestinal: no abdominal pain, no nausea and no vomiting Physical Exam Physical Exam: Constitutional: Elderly male, sitting up in chair, currently in no acute distress Eyes: PERRL, EOMI, conjunctivae normal, anicteric sclerae ENMT: external ear and nose normal, oropharynx normal Respiratory: normal respiratory effort, lungs clear to auscultation Cardiovascular: regular rate and regular rhythm Vessels: normal peripheral pulses Extremities: no edema Gastrointestinal (Abdomen): normal bowel sounds, soft, mild suprapubic tenderness to palp.,nondistended, no guarding Musculoskeletal: no cyanosis or clubbing, extremities motor strength 5/5 S/p back surgery, moves extremities spontaneously without difficulty, drain in place draining serosang. fluid Back: clean dressings applied over lower spine, no sign. edema, erythema noted Skin: no rashes, warm and dry Neurologic: PERRL, EOMI, accommodation nl, no face palsy, no dysarthria Psychiatric: A+Ox3, euthymic affect Results & Data Vital Signs (Past 12 Hours) Vital Signs Temp Pulse Resp BP BP Pulse Ox 05/10/19 05:58 36.4 C L 88 16 133/77 100 05/09/19 23:04 36.9 C 106 H 16 125/71 98 Laboratory Results 05/10/19 05/10/19 05/10/19 Range/Units 08:14 08:14 06:27 WBC 8.63 (4.8-10.8) K/uL RBC 2.31 L (4.7-6.1) M/uL Hgb 8.0 L (14.0-18.0) g/dL Hct 22.7 L (42-52) % MCV 98.3 (80-100) fL MCH 34.6 H (25-34) pg MCHC 35.2 (32-36) g/dL RDW Std Deviation 47.5 H (36.4-46.3) fL RDW Coeff of Mara 13.2 (11.5-14.5) % Plt Count 145 (130-400) K/uL MPV 8.6 (7.4-10.4) fL Sodium 133 L (136-145) mmol/L Potassium 4.3 (3.5-5.1) mmol/L Chloride 101 (98-107) mmol/L Carbon Dioxide 26 (21-32) mmol/L Anion Gap 5.0 (3-11) BUN 20 H (7-18) mg/dl Creatinine 1.09 (0.6-1.4) mg/dl Est Cr Clr Drug Dosing 60.6 ml/min Est GFR ( Amer) 76.0 Est GFR (Non-Af Amer) 65.6 BUN/Creatinine Ratio 18.0 (10-20) Glucose 234 H (70-99) mg/dl POC Glucose 220 H (70-99) Calcium 8.5 (8.5-10.1) mg/dl Urine Color Urine Appearance (Clear) Urine pH (4.5-7.5) Ur Specific [place] (1.000-1.030) Urine Protein (Negative) Urine Glucose (UA) (Negative) Urine Ketones (Negative) Urine Blood (Negative) Urine Nitrite (Negative) Urine Bilirubin (Negative) Urine Urobilinogen (Negative) Ur Leukocyte Esterase (Negative) Urine WBC (Auto) (0-5) /hpf Urine RBC (Auto) (0-4) /hpf U Hyaline Cast (Auto) (0-5) /lpf U Epithel Cells (Auto) (0-5) /lpf Urine Bacteria (Auto) (Negative) 05/10/19 05/09/19 05/09/19 Range/Units 04:45 20:38 17:10 WBC (4.8-10.8) K/uL RBC (4.7-6.1) M/uL Hgb (14.0-18.0) g/dL Hct (42-52) % MCV (80-100) fL MCH (25-34) pg MCHC (32-36) g/dL RDW Std Deviation (36.4-46.3) fL RDW Coeff of Mara (11.5-14.5) % Plt Count (130-400) K/uL MPV (7.4-10.4) fL Sodium (136-145) mmol/L Potassium (3.5-5.1) mmol/L Chloride (98-107) mmol/L Carbon Dioxide (21-32) mmol/L Anion Gap (3-11) BUN (7-18) mg/dl Creatinine (0.6-1.4) mg/dl Est Cr Clr Drug Dosing ml/min Est GFR ( Amer) Est GFR (Non-Af Amer) BUN/Creatinine Ratio (10-20) Glucose (70-99) mg/dl POC Glucose 140 H 228 H (70-99) Calcium (8.5-10.1) mg/dl Urine Color Yellow Urine Appearance Clear (Clear) Urine pH 5.5 (4.5-7.5) Ur Specific [place] 1.007 (1.000-1.030) Urine Protein Negative (Negative) Urine Glucose (UA) Negative (Negative) Urine Ketones Trace H (Negative) Urine Blood 1+ H (Negative) Urine Nitrite Negative (Negative) Urine Bilirubin Negative (Negative) Urine Urobilinogen Negative (Negative) Ur Leukocyte Esterase Negative (Negative) Urine WBC (Auto) 0 (0-5) /hpf Urine RBC (Auto) 0-4 (0-4) /hpf U Hyaline Cast (Auto) 1-5 (0-5) /lpf U Epithel Cells (Auto) 0-5 (0-5) /lpf Urine Bacteria (Auto) Negative (Negative) 05/09/19 Range/Units 12:08 WBC (4.8-10.8) K/uL RBC (4.7-6.1) M/uL Hgb (14.0-18.0) g/dL Hct (42-52) % MCV (80-100) fL MCH (25-34) pg MCHC (32-36) g/dL RDW Std Deviation (36.4-46.3) fL RDW Coeff of Mara (11.5-14.5) % Plt Count (130-400) K/uL MPV (7.4-10.4) fL Sodium (136-145) mmol/L Potassium (3.5-5.1) mmol/L Chloride (98-107) mmol/L Carbon Dioxide (21-32) mmol/L Anion Gap (3-11) BUN (7-18) mg/dl Creatinine (0.6-1.4) mg/dl Est Cr Clr Drug Dosing ml/min Est GFR ( Amer) Est GFR (Non-Af Amer) BUN/Creatinine Ratio (10-20) Glucose (70-99) mg/dl POC Glucose 152 H (70-99) Calcium (8.5-10.1) mg/dl Urine Color Urine Appearance (Clear) Urine pH (4.5-7.5) Ur Specific [place] (1.000-1.030) Urine Protein (Negative) Urine Glucose (UA) (Negative) Urine Ketones (Negative) Urine Blood (Negative) Urine Nitrite (Negative) Urine Bilirubin (Negative) Urine Urobilinogen (Negative) Ur Leukocyte Esterase (Negative) Urine WBC (Auto) (0-5) /hpf Urine RBC (Auto) (0-4) /hpf U Hyaline Cast (Auto) (0-5) /lpf U Epithel Cells (Auto) (0-5) /lpf Urine Bacteria (Auto) (Negative) Medications Administered Current Inpatient Medications Acetaminophen (Tylenol) 1,000 mg PO Q8H PRN PRN Reason: MILD Pain Rating 1,2,3 Stop: 06/06/19 15:50 Al Hydrox/Mg Hydrox/Simethicone (Maalox) 30 ml PO Q6H PRN PRN Reason: Dyspepsia Stop: 06/06/19 15:50 Aspirin (Aspirin Chew) 81 mg PO [facility] Stop: 06/07/19 08:59 Last Admin: 05/10/19 07:52 Dose: 81 mg Documented by: Bisacodyl (Dulcolax) 10 mg [place] DAILY PRN PRN Reason: Constipation Stop: 06/06/19 15:50 Dextrose (Dextrose 50%) 25 - 50 ml IV UD PRN; Protocol PRN Reason: Hypoglycemia Protocol Stop: 06/06/19 17:40 Diphenhydramine HCl (Benadryl Capsule) 25 mg PO Q6H PRN PRN Reason: Allergic Rhinitis/Insomnia Stop: 06/06/19 15:50 Famotidine (Pepcid) 20 mg PO Q12H PRN PRN Reason: Dyspepsia Stop: 06/06/19 15:50 Glucagon (Glucagen) 1 mg SQ UD PRN; Protocol PRN Reason: Hypoglycemia Protocol Stop: 06/06/19 17:40 Glucose (Dex4 Glucose) 4 - 8 tabs PO UD PRN; Protocol PRN Reason: Hypoglycemia Protocol Stop: 06/06/19 17:40 Glucose (Glucose 40%) 15 - 30 gm PO UD PRN; Protocol PRN Reason: Hypoglycemia Protocol Stop: 06/06/19 17:40 Hydromorphone HCl (Dilaudid) 0.5 mg IV Q3H PRN PRN Reason: moderate pain (scale 4-6) Stop: 05/21/19 15:50 Hydromorphone HCl (Dilaudid) 1 mg IV Q3H PRN PRN Reason: severe pain (scale 7-10) Stop: 05/21/19 15:50 Hydroxyzine HCl (Vistaril) 25 mg PO Q8H PRN PRN Reason: Anxiety Stop: 06/06/19 15:50 Lorazepam (Ativan) 0.5 mg in 1 mls @ 0.5 mls/min IV Q8H PRN PRN Reason: Sedation/Anxiety Stop: 06/06/19 15:50 Promethazine HCl 12.5 mg/ (Sodium Chloride) 50.5 mls @ 204 mls/hr IV Q6H PRN PRN Reason: Nausea &/or Vomiting Stop: 06/06/19 15:50 Influenza Virus Vaccine Quadrival (Flu Vaccine, Do Not Administer) 1 ea N/A PRN PRN PRN Reason: Notification Stop: 06/06/19 15:50 Insulin Aspart (Novolog Flexpen) 0 units SC ACHS [facility] Stop: 06/06/19 17:59 Last Admin: 05/10/19 07:52 Dose: 5 units Documented by: Levothyroxine Sodium (Synthroid) 75 mcg PO DAILYBB [facility] Stop: 06/07/19 06:29 Last Admin: 05/10/19 05:51 Dose: 75 mcg Documented by: Lorazepam (Ativan) 0.5 mg PO Q8H PRN PRN Reason: Sedation/Anxiety Stop: 06/06/19 15:50 Magnesium Hydroxide (Milk Of Magnesia) 30 ml PO DAILY PRN PRN Reason: Constipation Stop: 06/06/19 15:50 Metoclopramide HCl (Reglan) 10 mg IV Q6H PRN PRN Reason: Nausea &/or Vomiting Stop: 06/06/19 15:50 Miscellaneous (Carbohydrates For Hypoglycemia) 15 - 30 gm PO UD PRN PRN Reason: Hypoglycemia Protocol Stop: 06/06/19 17:40 Naloxone HCl (Narcan) 0.1 mg IV Q5M PRN; Protocol PRN Reason: Oversedation/Resp Depression Stop: 06/06/19 15:50 Ondansetron HCl (Zofran) 4 mg IV Q6H PRN PRN Reason: Nausea &/or Vomiting Stop: 06/06/19 15:50 Ondansetron HCl (Zofran Odt) 4 mg PO Q6H PRN PRN Reason: Nausea Stop: 06/06/19 15:50 Oxycodone HCl (Roxicodone Immediate Rel) 5 - 10 mg PO Q4H PRN PRN Reason: Moderate-Severe Pain Stop: 05/21/19 15:50 Last Admin: 05/10/19 02:28 Dose: 10 mg Documented by: Pantoprazole Sodium (Protonix) 40 mg PO QAM [facility] Stop: 06/07/19 08:59 Last Admin: 05/10/19 07:53 Dose: 40 mg Documented by: Pneumococcal Polyvalent Vaccine (Pneumococcal Vacc, Do Not Administer) 1 ea N/A PRN PRN PRN Reason: Notification Stop: 06/06/19 15:50 Rosuvastatin Calcium (Crestor) 5 mg PO Q48H [facility] Stop: 06/07/19 19:29 Last Admin: 05/08/19 21:01 Dose: 5 mg Documented by: Senna/Docusate Sodium (Senokot S) 2 tab PO HS [facility] Stop: 06/06/19 20:59 Last Admin: 05/09/19 21:47 Dose: 2 tab Documented by: Sodium Biphosphate/Sodium Phosphate (Fleet Enema) 132 ml [place] ONE PRN PRN Reason: Constipation Stop: 06/06/19 15:50 Tramadol HCl (Ultram) 50 - 100 mg PO Q4H PRN PRN Reason: Moderate-Severe Pain Stop: 06/06/19 15:50 Last Admin: 05/10/19 00:26 Dose: 100 mg Documented by:
[2019-05-10] MEDS: INSULIN ASPART 100 UNITS/ML 3 ML PEN SC SCH ×4 (07:52→21:02)
[2019-05-10] MEDS: ASPIRIN 81 MG CHEW PO SCH (07:52)
[2019-05-10] MEDS: PANTOprazole 40 MG TAB PO SCH (07:53)
[2019-05-10 08:37] LABS: Hematocrit (blood only) 22.7 % (42-52); Mean Corpuscular Hemoglobin 34.6 pg (25-34); Mean Corpuscular Hgb Conc 35.2 g/dL (32-36); Mean Corpuscular Volume 98.3 fL (80-100); Mean Platelet Volume 8.6 fL (7.4-10.4); Platelet Count 145 K/uL (130-400); RDW Coefficient of Variation 13.2 % (11.5-14.5); RDW Standard Deviation 47.5 fL (36.4-46.3); Red Blood Count 2.31 M/uL (4.7-6.1); White Blood Count 8.63 K/uL (4.8-10.8)
[2019-05-10 08:48] LABS: Calcium 8.5 mg/dl (8.5-10.1); Creatinine Clr Calc Pharmacy 60.6 ml/min; Est GFR (Non-African American) 65.6; Potassium 4.3 mmol/L (3.5-5.1)
[2019-05-10] MEDS ORDERED: TAMSULOSIN HCL 0.4 MG CAP PO ONE (09:52)
--- NOTE | 2019-05-10 10:31 | Discharge Summary ---
Date of Service May 10, 2019 Admission HPI Per Admitting Provider This is a 78-year-old male presents with chronic persistent back and bilateral leg pain after failing extensive course of nonoperative care is here for surgical intervention. Principal Diagnosis Lumbar spinal stenosis with neurogenic claudication Discharge Data Allergies Allergy/AdvReac Type Severity Reaction Status Date / Time Sulfa (Sulfonamide Allergy Mild RASH Verified 04/26/19 08:33 Antibiotics) Consultations 05/07/19 15:51 Consult Case Management - Discharge Planning Routine Consult Hospitalist Routine Procedures Performed Operation Date: 05/07/19 11:45 Actual Procedures p L3-S1 Decompression and Fusion with Interbody Cage Insertion at L4-L5, with Spinal Cord Monitoring(Not Applicable) - Tyler Little DO Ordered Studies 05/07/19 07:00 FL fluoroscopy <1hr Routine FL lumbar spine 2-3V Routine Hospital Course (1) Spinal stenosis, lumbar region with neurogenic claudication: Patient underwent multilevel lumbar decompression fusion tolerated so was taken to orthopedic for postoperative. Postop day 1 he was beginning physical therapy impressed improved to postop day #2 postop day #3 he did require reinsertion of his Jenkins catheter and will be discharged home with this. Follow-up with his urologist in a few weeks. He is strength is intact otherwise. He is comfortable ambulating well. NELY drain decreased appropriately. Safely discharged home. Discharge orders instructions can be found the chart for further view. Total Time Total Time Spent Total Time Spent (In Minutes): 20 minutes Discharge Plan Discharge Items Patient Disposition: Home - Self-Care Reason For Visit: LUMBAR SPINAL STENOSIS W/NEUROGENIC CLAUDICATION Discharge Diagnosis: Lumbar spinal stenosis with neurogenic claudication Activity: As commented below Non-emergency contact: Primary Care Provider Call non-emergency contact if: you have any medication questions Follow-up/Referrals: Joe Huston D.O. [Primary Care Provider] - Diet: Regular Addtl Attending Provider Instructions: ACTIVITY RECOMMENDATIONS: SELF CARE INSTRUCTIONS AFTER THORACIC/LUMBAR FUSIONS 1. You may walk to your tolerance. It is good exercise for your legs and back. Expect some back and intermittent leg aches and pains. 2. You may perform "counter-top" level activities (make a sandwich, nicola with a project, etc.). 3. No bending or lifting of more than 10 pounds or back twisting of any nature (roll like a log when turning in bed). 4. You may ride in a car for 20-30 minutes at a time. No driving until after your first visit with your doctor. 5. Frequent changes of position and restricting sitting to 30 minutes at a time will help limit the amount of back spasms and stiffness you may experience. 6. You may discontinue the use of ambulatory aids (cane, crutches, etc.) once your strength and confidence allow. 7. You may icing mixer the shower and let water strike your incision when you arrive home at least once daily. Do not take a tub bath, sit in a hot tub or go into a swimming pool until after your first recheck in the office. SPECIAL CARE INSTRUCTIONS: VERY IMPORTANT TO READ AND REVIEW A. Your surgical incision has been closed with a cosmetic suture under the skin that will dissolve in about 6 weeks. In 14 days, you can use a pair of clean scissors and cut the suture that is left outside of the skin at the ends of your incision. 1. The small skin tapes can be removed 7 days after surgery if they have not fallen off by that point. 2. You may keep the wound open to air as much as possible to promote healing after post-op day number 5 unless told otherwise by your doctor. 3. If you think the wound looks like it is becoming infected (redness or worsening drainage) and/or you are experiencing fever, chill or worsening back pain and muscle spasms, contact the office so that we may evaluate you as soon as possible. B. Complications are uncommon, but please contact us if you have any signs or symptoms of: 1. wound infection (fever higher than 102.5 degrees F, redness, separation of wound, drainage, or increasing pain from the incision) 2. blood clots in legs (pain, swelling, redness and warmth in legs) 3. urinary tract infection (fever higher than 102.5 degrees F, burning upon urination or increased frequency of urination) 4. nerve problems (inability to walk on your toes or heels, numbness, loss of bowel or bladder control) 5. any other symptoms that concern you C. Please call the office at if you have any concerns or questions about your operation or recovery. D. No smoking! Smoking drastically decreases the chance of a solid fusion. E. Do not take any anti-inflammatory medications (Indocin, Advil, Motrin, Aspirin, Naprosyn, etc.) as these may inhibit the chance of a solid fusion. Tylenol is okay to take for pain. MANAGING PAIN AFTER SPINAL SURGERY 1. Narcotic medication is intended for short-term use and will be provided for surgical pain. Surgical pain usually lasts for a period of 4-6 weeks. Narcotic medication includes Percocet, Vicodin, Darvocet, Tylenol #3 or Lortab. 2. Longer-term pain is more appropriately treated with non-narcotic medication such as Tylenol ES. 3. Muscle spasm is not appropriately treated with narcotics. Muscle relaxers such as Soma, Flexeril or Skelaxin can be used along with Tylenol ES. 4. Remember that we all live with some "aches and pains". This is not unusual or uncommon after an injury or as we get older. a. Back pain is expected and may include muscle spasms for 4 to 6 weeks after surgery. The pain should gradually improve. If the pain worsens for no apparent reason, please contact the office. b. Intermittent leg pain may also be experienced and should not be concerned about unless it worsens for no apparent reason. If so, please contact the office. 5. We will provide appropriate medication within the normal guidelines of their prescribed use. We will also be very cautious and aware of potential abuse and extended duration of patients' medication needs. a. Pain medications are for your comfort and to assist with sleep and rest so that the tissue can heal. They are not provided in order to return to normal activity and should not be used through the day. To do so or worsening pain at night can result from ongoing tissue damage and development of tolerance to the prescribed medicine. 6. Please allow 2-3 days to process refills. Prescriptions will not be mailed but must be picked up at the office. FOLLOW UP VISIT: Keep your scheduled follow-up appointment. Any questions, please call the office at . Pending Studies at Discharge: No Stand-Alone Forms: My [employer], Smoking Cessation Medications and DC Order Prescriptions: New oxycodone 5 mg tablet 5 mg PO Q6H PRN (Reason: pain, severe) Qty: 30 RF: 0 tramadol 50 mg tablet 50 mg PO Q6H PRN (Reason: pain, moderate) Qty: 30 RF: 0 Continued glimepiride 2 mg Tablet 2 mg PO QAM RF: 0 levothyroxine 75 mcg Tablet 75 mcg PO QAM RF: 0 pantoprazole 40 mg Tablet,Delayed Release (Dr/Ec) 40 mg PO QAM RF: 0 metformin 1,000 mg Tablet 1,000 mg PO BID RF: 0 aspirin 81 mg Tablet,Chewable 81 mg PO QAM RF: 0 rosuvastatin 5 mg Tablet 5 mg PO Q OTHER DAY RF: 0 Discharge Orders: Discharge Order (Routine); Ordered 05/10/19 Ordered By: Tyler Little Admission Data Admit Date/Time: 05/07/19 15:04 Attending Provider: Tyler Little Admit Provider: Tyler Little Primary Care Provider: Joe Huston Other Providers: Darshan De La Rosa
[2019-05-10 11:09] LABS: Hematocrit (blood only) 21.4 % (42-52); Hemoglobin 7.6 g/dL (14.0-18.0)
[2019-05-10] MEDS ORDERED: SODIUM CHLORIDE 0.9% 250 ML IV PRN ×5 (13:58→23:56)
[2019-05-10 18:25] LABS: Hematocrit (blood only) 22.4 % (42-52); Hemoglobin 7.9 g/dL (14.0-18.0)
[2019-05-10] MEDS: ROSUVASTATIN CALCIUM 5 MG TAB PO SCH (21:00)
[2019-05-10] MEDS: DOCUSATE SODIUM/SENNA 50/8.6MG TAB PO SCH (21:00)
[2019-05-10 23:51] LABS: Hematocrit (blood only) 21.1 % (42-52); Hemoglobin 7.5 g/dL (14.0-18.0)
[2019-05-10] MEDS ORDERED: ACETAMINOPHEN 500 MG TAB PO STA (23:57)
[2019-05-10] MEDS ORDERED: FUROSEMIDE 20 MG in SYRINGE 0 ML IV ONE (23:57)
[2019-05-11] MEDS: LEVOTHYROXINE SODIUM 75 MCG TABLET PO SCH (05:33)
[2019-05-11 05:39] LABS: Hematocrit (blood only) 24.5 % (42-52); Hemoglobin 8.7 g/dL (14.0-18.0); Mean Corpuscular Hemoglobin 33.7 pg (25-34); Mean Corpuscular Hgb Conc 35.5 g/dL (32-36); Mean Platelet Volume 9.2 fL (7.4-10.4); Platelet Count 137 K/uL (130-400); RDW Coefficient of Variation 13.9 % (11.5-14.5); RDW Standard Deviation 47.9 fL (36.4-46.3); Red Blood Count 2.58 M/uL (4.7-6.1)
[2019-05-11 06:16] LABS: BUN Creatinine Ratio 17.2 (10-20); Calcium 8.3 mg/dl (8.5-10.1); Creatinine Clr Calc Pharmacy 64.7 ml/min; Est GFR (African American) 82.4; Est GFR (Non-African American) 71.1; Potassium 3.8 mmol/L (3.5-5.1)
[2019-05-11 06:21] LABS: Basophils # (auto) 0.01 K/uL (0-0.2); Basophils % (auto) 0.2 %; Eosinophils # (auto) 0.08 K/uL (0-0.5); Eosinophils % (auto) 1.4 %; Immature Granulocytes # (auto) 0.03 K/uL (0.00-0.02); Immature Granulocytes % (auto) 0.5 %; Lymphocytes # (auto) 1.34 K/uL (1.2-3.4); Lymphocytes % (auto) 22.9 %; Monocytes # (auto) 0.79 K/uL (0.11-0.59); Monocytes % (auto) 13.5 %; Neutrophils % (auto) 61.5 %
--- NOTE | 2019-05-11 07:01 | CT Scan Report ---
ABDOMEN AND PELVIS CT WITHOUT CONTRAST CT DOSE: 489.79 mGy.cm HISTORY: Acute anemia with recent surgery significant drop in hb. s/p back surgery. TECHNIQUE: Multiaxial CT images of the abdomen and pelvis were performed without contrast. A dose lo wering technique was utilized adhering to the principles of ALARA. COMPARISON STUDY: Fluoroscopic images of the lumbar spine 05/07/2019, bone scan 12/10/2012 FINDINGS: Patchy groundglass opacities of the basal right lower lobe with subsegmental bibasilar tree-in-bud no dules most pronounced peripherally. Trace right pleural effusion. No pneumatosis or pneumoperitoneum. Coronary arterial calcifications are noted. The imaged inferior cardiac chambers are normal in size. Limited evaluation of the solid abdominal organs without the use of IV contrast. Thin the limitation s of the exam, the liver, spleen, gallbladder, pancreas and right adrenal gland are unremarkable. The re is mild nodular thickening of the left adrenal gland. Mild nonspecific bilateral perinephric stran ding. No renal or ureteral calculi identified. Streak artifact from spinal fusion hardware and bilate ral hip total joint arthroplasties limits the study, notably with limited evaluation of the pelvic st ructures. Jenkins catheter noted within the decompressed urinary bladder. Air within the bladder is lik adams secondary to instrumentation. Calcified plaque of the abdominal aorta without aneurysm. No bowel obstruction or bowel wall thickening. Small right and small to moderate fat filled left ingu inal hernias with trace fluid noted within the left inguinal hernia. Moderate to extensive fecal rete ntion. Visualized appendix appears noninflamed. There is asymmetric prominence of the right psoas and iliacus muscles compared the left which is likely secondary to left-sided atrophy. No definitive ret roperitoneal hematoma identified. Gynecomastia. Prior median sternotomy. Remote appearing sacral insu fficiency fractures throughout fractures of the left iliac bone. The nidus remote fracture of the rig ht inferior and superior pubic rami. Periprosthetic fracture of the right greater trochanter, likely chronic with corticated margins. Lumbar levoscoliosis. Laminectomy with posterior interbody stephania and s crew fusion at L3-S1 with discectomy changes at L4-L5. Air and fluid within the midline tissues of th e operative bed are noted without drainable fluid collection or definite large hematoma. Mild diffuse body wall edema. IMPRESSION: 1. Postoperative changes of the spine with laminectomy, posterior interbody stephania and screw fusion at L 3-S1 with discectomy changes at L4-L5. Air and fluid within the midline operative bed are likely expe cted postoperative changes, partially obscured from streak artifact. No large drainable fluid collect ion identified. Follow-up recommended. 2. 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 Additionally, there is a likely remote periprosthetic fracture of the right proximal femur predomi nantly involving the greater trochanter. 3. Moderate to extensive fecal retention. 4. No bowel obstruction or bowel wall thickening. 5. Trace right pleural effusion with findings suggestive of a mild nonspecific infectious or inflamma tory right basilar pneumonitis with minimal bibasilar bronchiolitis. 6. Asymmetric prominence of the right psoas and iliacus muscles, likely secondary to asymmetric left- sided atrophy. No definite retroperitoneal hematoma identified. 7. Additional findings as above. ACT 112: Negative or not required by law. The above report was generated using voice recognition software. It may contain grammatical, syntax o r spelling errors. Electronically signed by: Tito Vidal M.D. 05/11/2019 6:59 AM
--- NOTE | 2019-05-11 07:15 | Hospitalist Progress Note ---
Date of Service May 11, 2019 Assessment & Plan (1) Spinal stenosis, lumbar region with neurogenic claudication: - POD#4 L3-S1 decompression and fusion by Dr. Little - activity and wound care orders as per ortho, patient ambulating in the hallway (05/09) - pain control, bowel regimen - PT/OT - monitor H/H for acute blood loss anemia and transfuse blood products PRN Acute blood loss anemia -On admission hemoglobin 14.3, yesterday down to 8.0, on re-check 7.6 - received 1 unit of pRBC yesterday (05/10/2019) - H&H at midnight Hgb 7.5, received another transfusion of pRBC early this AM, CT abd./pelvis was ordered to rule out internal bleeding - CT was negative - Hgb this AM 8.7 - he feels much better this AM as well, plan for d/c per ortho - advised pt to follow up w/ PCP within a week and have his blood count checked - Patient has no chest pain, palpitati - Recommend to follow-up with his PCP, and obtain CBC within 1 week Orthostatic hypotension -Patient has history of orthostatic hypotension, says that he lies in recliner, and when he is getting up he needs to wait and stand up slowly -We will continue to monitor, currently no issues (2) Diabetes mellitus, type 2: -Hgb A1c 5.5 09/2018 -Hold home oral agents and utilize Lantus and NovoLog per protocol hospitalized -Monitor closely for hyperglycemia due to steroids received intraoperatively (3) CAD (coronary artery disease): -Appears stable, no reports of chest pain -Continue aspirin and statin -Not on beta-klever, ABILIO/ARB secondary to bradycardia and hypotension in the past -Follows with [facility] cardiology (4) GERD (gastroesophageal reflux disease): -Continue PPI (5) DVT prophylaxis: -Teds/SCDs as per spine orthopedics Thank you for this consultation. We will follow the patient with you during their hospital stay. You can reach a member of the [facility] Hospitalist Team 09/12 via pager @ [phone]. Subjective Patient with hemoglobin drop, 8.0 in the morning yesterday, then 7.6 on re- check. He underwent a transfusion of 1 unit of PRBCs, then H&H at midnight 7.5. He underwent another blood transfusion, CT abdomen/pelvis ordered - does not show any internal bleeding. Hgb this AM 8.7 Pt advised to follow up with PCP within a week and have his Hgb checked. Review of Systems Review of Systems: All systems reviewed & are unremarkable except as noted in HPI & below Constitutional: no fever, no chills and no fatigue Respiratory: no cough, no dyspnea and no pain on inspiration Cardiovascular: no chest pain, no palpitations and no edema Gastrointestinal: no abdominal pain, no nausea and no vomiting Physical Exam Physical Exam: Constitutional: Elderly male, sitting up in chair, currently in no acute distress Eyes: PERRL, EOMI, conjunctivae normal, anicteric sclerae ENMT: external ear and nose normal, oropharynx normal Respiratory: normal respiratory effort, lungs clear to auscultation Cardiovascular: regular rate and regular rhythm Vessels: normal peripheral pulses Extremities: no edema Gastrointestinal (Abdomen): normal bowel sounds, soft, mild suprapubic tenderness to palp.,nondistended, no guarding Musculoskeletal: no cyanosis or clubbing, extremities motor strength 5/5 S/p back surgery, moves extremities spontaneously without difficulty Back: clean dressings applied over lower spine, no sign. edema, erythema noted Skin: no rashes, warm and dry Neurologic: PERRL, EOMI, accommodation nl, no face palsy, no dysarthria Psychiatric: A+Ox3, euthymic affect Results & Data Vital Signs (Past 12 Hours) Vital Signs Temp Pulse Pulse Resp BP BP Pulse Ox 05/11/19 03:00 37.0 C 84 15 96/58 L 96 05/11/19 02:00 37.2 C 90 16 95/58 L 95 05/11/19 01:30 37.3 C 86 15 96/55 L 92 05/11/19 01:15 37.0 C 87 15 101/51 L 95 05/11/19 00:58 37.4 C 91 H 16 97/50 L 95 05/10/19 23:34 37.4 C 90 16 114/62 94 Laboratory Results 05/11/19 05/11/19 05/11/19 Range/Units 05:36 05:21 05:21 WBC Cancelled 5.60 (4.8-10.8) K/uL RBC Cancelled 2.58 L (4.7-6.1) M/uL Hgb Cancelled 8.7 L (14.0-18.0) g/dL Hct Cancelled 24.5 L (42-52) % MCV Cancelled 95.0 (80-100) fL MCH Cancelled 33.7 (25-34) pg MCHC Cancelled 35.5 (32-36) g/dL RDW Std Deviation Cancelled 47.9 H (36.4-46.3) fL RDW Coeff of Mara Cancelled 13.9 (11.5-14.5) % Plt Count Cancelled 137 (130-400) K/uL MPV Cancelled 9.2 (7.4-10.4) fL Immature Gran % (Auto) Cancelled 0.5 % Neut % (Auto) Cancelled 61.5 % Lymph % (Auto) Cancelled 22.9 % Marin % (Auto) Cancelled 13.5 % Eos % (Auto) Cancelled 1.4 % Baso % (Auto) Cancelled 0.2 % Immature Gran # (Auto) Cancelled 0.03 H (0.00-0.02) K/uL Neut # (Auto) Cancelled 3.60 (1.4-6.5) K/uL Lymph # (Auto) Cancelled 1.34 (1.2-3.4) K/uL Marin # (Auto) Cancelled 0.79 H (0.11-0.59) K/uL Eos # (Auto) Cancelled 0.08 (0-0.5) K/uL Baso # (Auto) Cancelled 0.01 (0-0.2) K/uL Absolute Nucleated RBC Cancelled 0.00 (0-0) K/uL Nucleated RBC % (auto) Cancelled 0.0 % Neutrophils % (Manual) Cancelled Band Neutrophils % Cancelled Lymphocytes % (Manual) Cancelled Prolymphocyte % Cancelled Reactive Lymphs % (Man) Cancelled Monocytes % (Manual) Cancelled Eosinophils % (Manual) Cancelled Basophils % (Manual) Cancelled Metamyelocytes % (Man) Cancelled Myelocytes % (Man) Cancelled Promyelocytes % (Man) Cancelled Blast Cells % (Manual) Cancelled Plasma Cell % (Manual) Cancelled Other Cells % Cancelled Nucleated RBC % Cancelled Neutrophils # (Manual) Cancelled Band Neutrophils # Cancelled Total Absolute Neuts Cancelled Lymphocytes # (Manual) Cancelled Prolymphocyte # Cancelled Reactive Lymphs # Cancelled Total Abs Lymphocytes Cancelled Monocytes # (Manual) Cancelled Eosinophils # (Manual) Cancelled Basophils # (Manual) Cancelled Metamyelocytes # (Man) Cancelled Myelocytes # (Manual) Cancelled Promyelocytes # (Man) Cancelled Blast Cells # (Man) Cancelled Plasma Cell # (Manual) Cancelled Other Cells # Cancelled Nucleated RBCs # (Man) Cancelled Hypersegmented Neuts Cancelled Hyposegmented Neuts Cancelled Hypogranular Neuts Cancelled Large Granular Lymphs Cancelled # Lrg Granular Lymphs Cancelled Hairy Cells Cancelled Smudge Cells Cancelled Toxic Granulation Cancelled Toxic Vacuolation Cancelled Dohle Bodies Cancelled Al Rods Cancelled Platelet Estimate Cancelled Hypogranular Platelets Cancelled Clumped Platelets Cancelled Giant Platelets Cancelled Platelet Satelliting Cancelled RBC Morphology Cancelled Polychromasia Cancelled Hypochromasia Cancelled Poikilocytosis Cancelled Basophilic Stippling Cancelled Anisocytosis Cancelled Microcytosis Cancelled Macrocytosis Cancelled Spherocytes Cancelled Pappenheimer Bodies Cancelled Sickle Cells Cancelled Target Cells Cancelled Tear Drop Cells Cancelled Ovalocytes Cancelled Stomatocytes Cancelled Mascorro-Hemphill Bodies Cancelled Echinocytes Cancelled Acanthocytes (Spur) Cancelled Rouleaux Cancelled RBC Agglutinates Cancelled Schistocytes Cancelled RBC Morph Comment Cancelled Sezary Cell Cancelled Sodium 138 (136-145) mmol/L Potassium 3.8 (3.5-5.1) mmol/L Chloride 104 (98-107) mmol/L Carbon Dioxide 29 (21-32) mmol/L Anion Gap 5.0 (3-11) BUN 18 (7-18) mg/dl Creatinine 1.02 (0.6-1.4) mg/dl Est Cr Clr Drug Dosing 64.7 ml/min Est GFR ( Amer) 82.4 Est GFR (Non-Af Amer) 71.1 BUN/Creatinine Ratio 17.2 (10-20) Glucose 151 H (70-99) mg/dl POC Glucose (70-99) Calcium 8.3 L (8.5-10.1) mg/dl Blood Type Antibody Screen Crossmatch 05/10/19 05/10/19 05/10/19 Range/Units 23:44 20:22 18:14 WBC (4.8-10.8) K/uL RBC (4.7-6.1) M/uL Hgb 7.5 L 7.9 L (14.0-18.0) g/dL Hct 21.1 L 22.4 L (42-52) % MCV (80-100) fL MCH (25-34) pg MCHC (32-36) g/dL RDW Std Deviation (36.4-46.3) fL RDW Coeff of Mara (11.5-14.5) % Plt Count (130-400) K/uL MPV (7.4-10.4) fL Immature Gran % (Auto) % Neut % (Auto) % Lymph % (Auto) % Marin % (Auto) % Eos % (Auto) % Baso % (Auto) % Immature Gran # (Auto) (0.00-0.02) K/uL Neut # (Auto) (1.4-6.5) K/uL Lymph # (Auto) (1.2-3.4) K/uL Marin # (Auto) (0.11-0.59) K/uL Eos # (Auto) (0-0.5) K/uL Baso # (Auto) (0-0.2) K/uL Absolute Nucleated RBC (0-0) K/uL Nucleated RBC % (auto) % Neutrophils % (Manual) Band Neutrophils % Lymphocytes % (Manual) Prolymphocyte % Reactive Lymphs % (Man) Monocytes % (Manual) Eosinophils % (Manual) Basophils % (Manual) Metamyelocytes % (Man) Myelocytes % (Man) Promyelocytes % (Man) Blast Cells % (Manual) Plasma Cell % (Manual) Other Cells % Nucleated RBC % Neutrophils # (Manual) Band Neutrophils # Total Absolute Neuts Lymphocytes # (Manual) Prolymphocyte # Reactive Lymphs # Total Abs Lymphocytes Monocytes # (Manual) Eosinophils # (Manual) Basophils # (Manual) Metamyelocytes # (Man) Myelocytes # (Manual) Promyelocytes # (Man) Blast Cells # (Man) Plasma Cell # (Manual) Other Cells # Nucleated RBCs # (Man) Hypersegmented Neuts Hyposegmented Neuts Hypogranular Neuts Large Granular Lymphs # Lrg Granular Lymphs Hairy Cells Smudge Cells Toxic Granulation Toxic Vacuolation Dohle Bodies Al Rods Platelet Estimate Hypogranular Platelets Clumped Platelets Giant Platelets Platelet Satelliting RBC Morphology Polychromasia Hypochromasia Poikilocytosis Basophilic Stippling Anisocytosis Microcytosis Macrocytosis Spherocytes Pappenheimer Bodies Sickle Cells Target Cells Tear Drop Cells Ovalocytes Stomatocytes Mascorro-Hemphill Bodies Echinocytes Acanthocytes (Spur) Rouleaux RBC Agglutinates Schistocytes RBC Morph Comment Sezary Cell Sodium (136-145) mmol/L Potassium (3.5-5.1) mmol/L Chloride (98-107) mmol/L Carbon Dioxide (21-32) mmol/L Anion Gap (3-11) BUN (7-18) mg/dl Creatinine (0.6-1.4) mg/dl Est Cr Clr Drug Dosing ml/min Est GFR ( Amer) Est GFR (Non-Af Amer) BUN/Creatinine Ratio (10-20) Glucose (70-99) mg/dl POC Glucose 157 H (70-99) Calcium (8.5-10.1) mg/dl Blood Type Antibody Screen Crossmatch 05/10/19 05/10/19 05/10/19 Range/Units 17:01 14:06 12:13 WBC (4.8-10.8) K/uL RBC (4.7-6.1) M/uL Hgb (14.0-18.0) g/dL Hct (42-52) % MCV (80-100) fL MCH (25-34) pg MCHC (32-36) g/dL RDW Std Deviation (36.4-46.3) fL RDW Coeff of Mara (11.5-14.5) % Plt Count (130-400) K/uL MPV (7.4-10.4) fL Immature Gran % (Auto) % Neut % (Auto) % Lymph % (Auto) % Marin % (Auto) % Eos % (Auto) % Baso % (Auto) % Immature Gran # (Auto) (0.00-0.02) K/uL Neut # (Auto) (1.4-6.5) K/uL Lymph # (Auto) (1.2-3.4) K/uL Marin # (Auto) (0.11-0.59) K/uL Eos # (Auto) (0-0.5) K/uL Baso # (Auto) (0-0.2) K/uL Absolute Nucleated RBC (0-0) K/uL Nucleated RBC % (auto) % Neutrophils % (Manual) Band Neutrophils % Lymphocytes % (Manual) Prolymphocyte % Reactive Lymphs % (Man) Monocytes % (Manual) Eosinophils % (Manual) Basophils % (Manual) Metamyelocytes % (Man) Myelocytes % (Man) Promyelocytes % (Man) Blast Cells % (Manual) Plasma Cell % (Manual) Other Cells % Nucleated RBC % Neutrophils # (Manual) Band Neutrophils # Total Absolute Neuts Lymphocytes # (Manual) Prolymphocyte # Reactive Lymphs # Total Abs Lymphocytes Monocytes # (Manual) Eosinophils # (Manual) Basophils # (Manual) Metamyelocytes # (Man) Myelocytes # (Manual) Promyelocytes # (Man) Blast Cells # (Man) Plasma Cell # (Manual) Other Cells # Nucleated RBCs # (Man) Hypersegmented Neuts Hyposegmented Neuts Hypogranular Neuts Large Granular Lymphs # Lrg Granular Lymphs Hairy Cells Smudge Cells Toxic Granulation Toxic Vacuolation Dohle Bodies Al Rods Platelet Estimate Hypogranular Platelets Clumped Platelets Giant Platelets Platelet Satelliting RBC Morphology Polychromasia Hypochromasia Poikilocytosis Basophilic Stippling Anisocytosis Microcytosis Macrocytosis Spherocytes Pappenheimer Bodies Sickle Cells Target Cells Tear Drop Cells Ovalocytes Stomatocytes Mascorro-Hemphill Bodies Echinocytes Acanthocytes (Spur) Rouleaux RBC Agglutinates Schistocytes RBC Morph Comment Sezary Cell Sodium (136-145) mmol/L Potassium (3.5-5.1) mmol/L Chloride (98-107) mmol/L Carbon Dioxide (21-32) mmol/L Anion Gap (3-11) BUN (7-18) mg/dl Creatinine (0.6-1.4) mg/dl Est Cr Clr Drug Dosing ml/min Est GFR ( Amer) Est GFR (Non-Af Amer) BUN/Creatinine Ratio (10-20) Glucose (70-99) mg/dl POC Glucose 173 H 157 H (70-99) Calcium (8.5-10.1) mg/dl Blood Type A Negative Antibody Screen NEGATIVE Crossmatch See Detail 05/10/19 05/10/19 05/10/19 Range/Units 10:57 08:14 08:14 WBC 8.63 (4.8-10.8) K/uL RBC 2.31 L (4.7-6.1) M/uL Hgb 7.6 L 8.0 L (14.0-18.0) g/dL Hct 21.4 L 22.7 L (42-52) % MCV 98.3 (80-100) fL MCH 34.6 H (25-34) pg MCHC 35.2 (32-36) g/dL RDW Std Deviation 47.5 H (36.4-46.3) fL RDW Coeff of Mara 13.2 (11.5-14.5) % Plt Count 145 (130-400) K/uL MPV 8.6 (7.4-10.4) fL Immature Gran % (Auto) % Neut % (Auto) % Lymph % (Auto) % Marin % (Auto) % Eos % (Auto) % Baso % (Auto) % Immature Gran # (Auto) (0.00-0.02) K/uL Neut # (Auto) (1.4-6.5) K/uL Lymph # (Auto) (1.2-3.4) K/uL Marin # (Auto) (0.11-0.59) K/uL Eos # (Auto) (0-0.5) K/uL Baso # (Auto) (0-0.2) K/uL Absolute Nucleated RBC (0-0) K/uL Nucleated RBC % (auto) % Neutrophils % (Manual) Band Neutrophils % Lymphocytes % (Manual) Prolymphocyte % Reactive Lymphs % (Man) Monocytes % (Manual) Eosinophils % (Manual) Basophils % (Manual) Metamyelocytes % (Man) Myelocytes % (Man) Promyelocytes % (Man) Blast Cells % (Manual) Plasma Cell % (Manual) Other Cells % Nucleated RBC % Neutrophils # (Manual) Band Neutrophils # Total Absolute Neuts Lymphocytes # (Manual) Prolymphocyte # Reactive Lymphs # Total Abs Lymphocytes Monocytes # (Manual) Eosinophils # (Manual) Basophils # (Manual) Metamyelocytes # (Man) Myelocytes # (Manual) Promyelocytes # (Man) Blast Cells # (Man) Plasma Cell # (Manual) Other Cells # Nucleated RBCs # (Man) Hypersegmented Neuts Hyposegmented Neuts Hypogranular Neuts Large Granular Lymphs # Lrg Granular Lymphs Hairy Cells Smudge Cells Toxic Granulation Toxic Vacuolation Dohle Bodies Al Rods Platelet Estimate Hypogranular Platelets Clumped Platelets Giant Platelets Platelet Satelliting RBC Morphology Polychromasia Hypochromasia Poikilocytosis Basophilic Stippling Anisocytosis Microcytosis Macrocytosis Spherocytes Pappenheimer Bodies Sickle Cells Target Cells Tear Drop Cells Ovalocytes Stomatocytes Mascorro-Hemphill Bodies Echinocytes Acanthocytes (Spur) Rouleaux RBC Agglutinates Schistocytes RBC Morph Comment Sezary Cell Sodium 133 L (136-145) mmol/L Potassium 4.3 (3.5-5.1) mmol/L Chloride 101 (98-107) mmol/L Carbon Dioxide 26 (21-32) mmol/L Anion Gap 5.0 (3-11) BUN 20 H (7-18) mg/dl Creatinine 1.09 (0.6-1.4) mg/dl Est Cr Clr Drug Dosing 60.6 ml/min Est GFR ( Amer) 76.0 Est GFR (Non-Af Amer) 65.6 BUN/Creatinine Ratio 18.0 (10-20) Glucose 234 H (70-99) mg/dl POC Glucose (70-99) Calcium 8.5 (8.5-10.1) mg/dl Blood Type Antibody Screen Crossmatch 05/07/19 Range/Units 09:52 WBC (4.8-10.8) K/uL RBC (4.7-6.1) M/uL Hgb (14.0-18.0) g/dL Hct (42-52) % MCV (80-100) fL MCH (25-34) pg MCHC (32-36) g/dL RDW Std Deviation (36.4-46.3) fL RDW Coeff of Mara (11.5-14.5) % Plt Count (130-400) K/uL MPV (7.4-10.4) fL Immature Gran % (Auto) % Neut % (Auto) % Lymph % (Auto) % Marin % (Auto) % Eos % (Auto) % Baso % (Auto) % Immature Gran # (Auto) (0.00-0.02) K/uL Neut # (Auto) (1.4-6.5) K/uL Lymph # (Auto) (1.2-3.4) K/uL Marin # (Auto) (0.11-0.59) K/uL Eos # (Auto) (0-0.5) K/uL Baso # (Auto) (0-0.2) K/uL Absolute Nucleated RBC (0-0) K/uL Nucleated RBC % (auto) % Neutrophils % (Manual) Band Neutrophils % Lymphocytes % (Manual) Prolymphocyte % Reactive Lymphs % (Man) Monocytes % (Manual) Eosinophils % (Manual) Basophils % (Manual) Metamyelocytes % (Man) Myelocytes % (Man) Promyelocytes % (Man) Blast Cells % (Manual) Plasma Cell % (Manual) Other Cells % Nucleated RBC % Neutrophils # (Manual) Band Neutrophils # Total Absolute Neuts Lymphocytes # (Manual) Prolymphocyte # Reactive Lymphs # Total Abs Lymphocytes Monocytes # (Manual) Eosinophils # (Manual) Basophils # (Manual) Metamyelocytes # (Man) Myelocytes # (Manual) Promyelocytes # (Man) Blast Cells # (Man) Plasma Cell # (Manual) Other Cells # Nucleated RBCs # (Man) Hypersegmented Neuts Hyposegmented Neuts Hypogranular Neuts Large Granular Lymphs # Lrg Granular Lymphs Hairy Cells Smudge Cells Toxic Granulation Toxic Vacuolation Dohle Bodies Al Rods Platelet Estimate Hypogranular Platelets Clumped Platelets Giant Platelets Platelet Satelliting RBC Morphology Polychromasia Hypochromasia Poikilocytosis Basophilic Stippling Anisocytosis Microcytosis Macrocytosis Spherocytes Pappenheimer Bodies Sickle Cells Target Cells Tear Drop Cells Ovalocytes Stomatocytes Mascorro-Hemphill Bodies Echinocytes Acanthocytes (Spur) Rouleaux RBC Agglutinates Schistocytes RBC Morph Comment Sezary Cell Sodium (136-145) mmol/L Potassium (3.5-5.1) mmol/L Chloride (98-107) mmol/L Carbon Dioxide (21-32) mmol/L Anion Gap (3-11) BUN (7-18) mg/dl Creatinine (0.6-1.4) mg/dl Est Cr Clr Drug Dosing ml/min Est GFR ( Amer) Est GFR (Non-Af Amer) BUN/Creatinine Ratio (10-20) Glucose (70-99) mg/dl POC Glucose (70-99) Calcium (8.5-10.1) mg/dl Blood Type Antibody Screen Crossmatch See Detail Diagnostic Findings CT Abdomen / pelvis 05/11/2019 IMPRESSION: 1. Postoperative changes of the spine with laminectomy, posterior interbody stephania and screw fusion at L3-S1 with discectomy changes at L4-L5. Air and fluid within the midline operative bed are likely expected postoperative changes, partially obscured from streak artifact. No large drainable fluid collection identified. Follow-up recommended. 2. 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 Additionally, there is a likely remote periprosthetic fracture of the right proximal femur predominantly involving the greater trochanter. 3. Moderate to extensive fecal retention. 4. No bowel obstruction or bowel wall thickening. 5. Trace right pleural effusion with findings suggestive of a mild nonspecific infectious or inflammatory right basilar pneumonitis with minimal bibasilar bronchiolitis. 6. Asymmetric prominence of the right psoas and iliacus muscles, likely secondary to asymmetric left-sided atrophy. No definite retroperitoneal hematoma identified. 7. Additional findings as above. Medications Administered Current Inpatient Medications Acetaminophen (Tylenol) 1,000 mg PO Q8H PRN PRN Reason: MILD Pain Rating 1,2,3 Stop: 06/06/19 15:50 Al Hydrox/Mg Hydrox/Simethicone (Maalox) 30 ml PO Q6H PRN PRN Reason: Dyspepsia Stop: 06/06/19 15:50 [facility]ir[facility] Chew) [facility] Stop: 06/07/19 08:59 Last Admin: 05/10/19 07:52 Dose: 81 mg Documented by: Bisacodyl (Dulcolax) 10 mg NH DAILY PRN PRN Reason: Constipation Stop: 06/06/19 15:50 Dextrose (Dextrose 50%) 25 - 50 ml IV UD PRN; Protocol PRN Reason: Hypoglycemia Protocol Stop: 06/06/19 17:40 Diphenhydramine HCl (Benadryl Capsule) 25 mg PO Q6H PRN PRN Reason: Allergic Rhinitis/Insomnia Stop: 06/06/19 15:50 Famotidine (Pepcid) 20 mg PO Q12H PRN PRN Reason: Dyspepsia Stop: 06/06/19 15:50 Glucagon (Glucagen) 1 mg SQ UD PRN; Protocol PRN Reason: Hypoglycemia Protocol Stop: 06/06/19 17:40 Glucose (Dex4 Glucose) 4 - 8 tabs PO UD PRN; Protocol PRN Reason: Hypoglycemia Protocol Stop: 06/06/19 17:40 Glucose (Glucose 40%) 15 - 30 gm PO UD PRN; Protocol PRN Reason: Hypoglycemia Protocol Stop: 06/06/19 17:40 Hydromorphone HCl (Dilaudid) 0.5 mg IV Q3H PRN PRN Reason: moderate pain (scale 4-6) Stop: 05/21/19 15:50 Hydromorphone HCl (Dilaudid) 1 mg IV Q3H PRN PRN Reason: severe pain (scale 7-10) Stop: 05/21/19 15:50 Hydroxyzine HCl (Vistaril) 25 mg PO Q8H PRN PRN Reason: Anxiety Stop: 06/06/19 15:50 Lorazepam (Ativan) 0.5 mg in 1 mls @ 0.5 mls/min IV Q8H PRN PRN Reason: Sedation/Anxiety Stop: 06/06/19 15:50 Promethazine HCl 12.5 mg/ (Sodium Chloride) 50.5 mls @ 204 mls/hr IV Q6H PRN PRN Reason: Nausea &/or Vomiting Stop: 06/06/19 15:50 Sodium Chloride (Nss) 250 mls @ 15 mls/hr IV .[id number] PRN PRN Reason: For Transfusion Stop: 05/11/19 09:56 Influenza Virus Vaccine Quadrival (Flu Vaccine, Do Not Administer) 1 ea N/A PRN PRN PRN Reason: Notification Stop: 06/06/19 15:50 Insulin Aspart (Novolog Flexpen) 0 units SC ACHS [facility] Stop: 06/06/19 17:59 Last Admin: 05/10/19 21:02 Dose: 1 units Documented by: Levothyroxine Sodium (Synthroid) 75 mcg PO DAILYBB [facility] Stop: 06/07/19 06:29 Last Admin: 05/11/19 05:33 Dose: 75 mcg Documented by: Lorazepam (Ativan) 0.5 mg PO Q8H PRN PRN Reason: Sedation/Anxiety Stop: 06/06/19 15:50 Magnesium Hydroxide (Milk Of Magnesia) 30 ml PO DAILY PRN PRN Reason: Constipation Stop: 06/06/19 15:50 Metoclopramide HCl (Reglan) 10 mg IV Q6H PRN PRN Reason: Nausea &/or Vomiting Stop: 06/06/19 15:50 Miscellaneous (Carbohydrates For Hypoglycemia) 15 - 30 gm PO UD PRN PRN Reason: Hypoglycemia Protocol Stop: 06/06/19 17:40 Naloxone HCl (Narcan) 0.1 mg IV Q5M PRN; Protocol PRN Reason: Oversedation/Resp Depression Stop: 06/06/19 15:50 Ondansetron HCl (Zofran) 4 mg IV Q6H PRN PRN Reason: Nausea &/or Vomiting Stop: 06/06/19 15:50 Ondansetron HCl (Zofran Odt) 4 mg PO Q6H PRN PRN Reason: Nausea Stop: 06/06/19 15:50 Oxycodone HCl (Roxicodone Immediate Rel) 5 - 10 mg PO Q4H PRN PRN Reason: Moderate-Severe Pain Stop: 05/21/19 15:50 Last Admin: 05/10/19 02:28 Dose: 10 mg Documented by: Pantoprazole Sodium (Protonix) 40 mg PO QAM [facility] Stop: 06/07/19 08:59 Last Admin: 05/10/19 07:53 Dose: 40 mg Documented by: Pneumococcal Polyvalent Vaccine (Pneumococcal Vacc, Do Not Administer) 1 ea N/A PRN PRN PRN Reason: Notification Stop: 06/06/19 15:50 Rosuvastatin Calcium (Crestor) 5 mg PO Q48H [facility] Stop: 06/07/19 19:29 Last Admin: 05/10/19 21:00 Dose: 5 mg Documented by: Senna/Docusate Sodium (Senokot S) 2 tab PO HS [facility] Stop: 06/06/19 20:59 Last Admin: 05/10/19 21:00 Dose: 2 tab Documented by: Sodium Biphosphate/Sodium Phosphate (Fleet Enema) 132 ml NH ONE PRN PRN Reason: Constipation Stop: 06/06/19 15:50 Tramadol HCl (Ultram) 50 - 100 mg PO Q4H PRN PRN Reason: Moderate-Severe Pain Stop: 06/06/19 15:50 Last Admin: 05/10/19 00:26 Dose: 100 mg Documented by:
--- NOTE | 2019-05-11 07:41 | Orthopedic Progress Note ---
Date of Service May 11, 2019 Assessment & Plan (1) Spinal stenosis, lumbar region with neurogenic claudication: At this time we will discharge home. His hematocrit is improved dramatically. He is quite comfortable. Present on Admission?: Yes Subjective Patient feels very strong today. Some modest back pain leg pain improved. Physical Exam Physical Exam: Patient is good strength testing. Appears comfortable. Results & Data Vital Signs (Past 12 Hours) Vital Signs Temp Pulse Pulse Resp BP BP BP 05/11/19 07:21 36.6 C 81 16 102/59 L 05/11/19 03:00 37.0 C 84 15 96/58 L 05/11/19 02:00 37.2 C 90 16 95/58 L 05/11/19 01:30 37.3 C 86 15 96/55 L 05/11/19 01:15 37.0 C 87 15 101/51 L 05/11/19 00:58 37.4 C 91 H 16 97/50 L 05/10/19 23:34 37.4 C 90 16 114/62 Pulse Ox 05/11/19 07:21 95 05/11/19 03:00 96 05/11/19 02:00 95 05/11/19 01:30 92 05/11/19 01:15 95 05/11/19 00:58 95 05/10/19 23:34 94
[2019-05-11] MEDS: PANTOprazole 40 MG TAB PO SCH (08:53)
[2019-05-11] MEDS: INSULIN ASPART 100 UNITS/ML 3 ML PEN SC SCH ×2 (08:53→12:36)
[2019-05-11] MEDS: ASPIRIN 81 MG CHEW PO SCH (08:53)
== END 2019-05-11 13:30 | disposition home or self-care (01) | DRG 454 ==
LOC: ASU 09:18 → 3E 15:04 → 3W 05-10 14:21

== ENCOUNTER 2019-07-30 11:27 | Inpatient (IN) ==
[2019-07-30 12:23] LABS: Basophils # (auto) 0.01 K/uL (0-0.2); Basophils % (auto) 0.1 %; Eosinophils # (auto) 0.01 K/uL (0-0.5); Eosinophils % (auto) 0.1 %; Hematocrit (blood only) 32.3 % (42-52); Hemoglobin 10.8 g/dL (14.0-18.0); Immature Granulocytes # (auto) 0.03 K/uL (0.00-0.02); Immature Granulocytes % (auto) 0.3 %; Lymphocytes # (auto) 0.77 K/uL (1.2-3.4); Lymphocytes % (auto) 8.5 %; Mean Corpuscular Hemoglobin 31.8 pg (25-34); Mean Corpuscular Hgb Conc 33.4 g/dL (32-36); Monocytes # (auto) 1.23 K/uL (0.11-0.59); Monocytes % (auto) 13.6 %; Neutrophils % (auto) 77.4 %; Platelet Count 307 K/uL (130-400); RDW Standard Deviation 50.4 fL (36.4-46.3); White Blood Count 9.05 K/uL (4.8-10.8)
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
[2019-07-30 12:36] LABS: Appearance Urine Clear (Clear); Blood Urine Negative (Negative); Color Urine Dark Yellow; Glucose Urine UA 1+ (Negative); Ketones Urine Trace (Negative); Leukocyte Esterase Urine Negative (Negative); Nitrite Urine Negative (Negative); Protein Urine Negative (Negative); Specific Gravity Urine 1.011 (1.000-1.030); Urobilinogen Urine Negative (Negative); pH Urine 7.5 (4.5-7.5)
[2019-07-30 12:44] LABS: Albumin Level 2.9 gm/dl (3.4-5.0); BUN Creatinine Ratio 20.3 (10-20); Calcium 8.6 mg/dl (8.5-10.1); Creatinine Clr Calc Pharmacy 73.6 ml/min; Est GFR (African American) 94.5; Est GFR (Non-African American) 81.6; Potassium 4.1 mmol/L (3.5-5.1)
[2019-07-30 12:50] LABS: Bilirubin Urine 1+ (Negative); Ictotest Urine Positive (Negative)
[2019-07-30 12:52] LABS: Albumin Globulin Ratio 0.9 (0.9-2); Bilirubin,Total 12.7 mg/dl (0.2-1); Globulin 3.4 gm/dl (2.5-4.0); Total Protein 6.3 gm/dl (6.4-8.2)
--- NOTE | 2019-07-30 13:02 | XRay Report ---
XR chest 1V portable CLINICAL HISTORY: 78 years-old Male presenting with cp. TECHNIQUE: Portable upright AP view of the chest was obtained. COMPARISON: 04/27/2019. FINDINGS: Median sternotomy wires and mediastinal surgical clips. Prior nodular opacity at the left lung base a s well appreciated on the current exam though likely nipple shadow. No new focal opacity. No large ef fusion or pneumothorax. Degenerative changes of the thoracic spine. Degenerative changes of the shoul ders. Old left lateral rib fracture. Upper abdomen normal. IMPRESSION: 1. No acute cardiopulmonary disease. ACT 112: Negative or not required by law. Electronically signed by: Joel Talamantes M.D. 07/30/2019 1:00 PM
[2019-07-30 13:43] LABS: Troponin I 0.027 ng/ml (0-0.045)
--- NOTE | 2019-07-30 14:14 | Ultrasound Report ---
US gallbladder HISTORY: 78 years-old Male new onset jaundice acute jaundice COMPARISON: CT abdomen and pelvis 05/11/2019 TECHNIQUE: Multiple real-time sonographic images of the abdominal right upper quadrant were obtained assessing grayscale appearance and color flow FINDINGS: Limited exam secondary to patient body habitus and obscuring bowel gas. Pancreas is not diagnosticall y visualized. No focal abnormality identified within the imaged hepatic parenchyma. The left lobe of the liver is not well visualized. No marginal nodularity or intrahepatic biliary ductal dilation. Tra ce perihepatic ascites. Sludge-filled gallbladder with mild gallbladder distention. Trace pericholecy stic fluid. The gallbladder wall measures the upper limits of normal at 3 mm. No shadowing cholelithi asis. Normal common bile duct, 4 mm. Sonographic Harrison sign reported as negative. Imaged right kidney is unremarkable without hydronephrosis. IMPRESSION: 1. Distended sludge-filled gallbladder with minimal pericholecystic fluid/perihepatic ascites. No sha dowing cholelithiasis and the sonographic Harrison sign was reported as negative. These findings are eq uivocal for acute cholecystitis. These findings could be correlated with laboratory analysis and nucl ear medicine hepatobiliary scan. 2. No biliary ductal dilation. 3. Limited exam as above. ACT 112: Negative or not required by law. The above report was generated using voice recognition software. It may contain grammatical, syntax o r spelling errors. Electronically signed by: Tito Vidal M.D. 07/30/2019 2:13 PM
[2019-07-30] MEDS ORDERED: INDOMETHACIN 50 MG SUPP PR SCH (14:49)
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
[2019-07-30] MEDS ORDERED: fentaNYL citrate 100 MCG/2 ML VIAL ONE (15:07)
[2019-07-30 15:09] LABS: Prothrombin Time 10.9 Seconds (9.0-12.0)
[2019-07-30] MEDS ORDERED: PROPOFOL IV EMULSION 10 MG/ML 20 ML VIAL IV ONE (15:11)
[2019-07-30] MEDS ORDERED: LIDOCAINE HCL 2% 2 ML VIAL/AMP(20MG/ML) INFIL ONE (15:11)
[2019-07-30] MEDS ORDERED: ONDANSETRON INJ 2 MG/ML 2 ML VIAL ONE (15:14)
[2019-07-30] MEDS ORDERED: SUCCINYLCHOLINE CHLORIDE 20 MG/ML 10 ML VIAL ONE (15:14)
[2019-07-30] MEDS ORDERED: PHENYLEPHRINE 100MCG/ML 5ML SYR IV PRN (15:42)
[2019-07-30] MEDS ORDERED: MEPERIDINE HCL 25 MG/ML CARP/VIAL IV PRN (15:42)
[2019-07-30] MEDS ORDERED: fentaNYL citrate 100 MCG/2 ML VIAL IV PRN (15:42)
[2019-07-30] MEDS ORDERED: LABETALOL HCL IV 5 MG/ML 20ML IV PRN (15:42)
[2019-07-30] MEDS ORDERED: ePHEDrine sulfate 50 MG/ML AMP IV PRN (15:42)
[2019-07-30] MEDS ORDERED: ATROPINE SULFATE 0.1 MG/ML 10ML SYR IV PRN (15:42)
[2019-07-30] MEDS ORDERED: ONDANSETRON INJ 2 MG/ML 2 ML VIAL IV PRN (15:42)
[2019-07-30] MEDS ORDERED: INSULIN ASPART PER UNIT SC STA ×2 (15:44→18:17)
[2019-07-30] MEDS ORDERED: INSULIN ASPART PER UNIT ONE ×2 (15:45→18:19)
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
--- NOTE | 2019-07-30 16:03 | History & Physical Bridge Note ---
Date of Service July 30, 2019 History & Physical Bridge Note I have examined the patient, reviewed the History & Physical and in the interval since the performance of the History & Physical I have noted the following changes of clinical significance: no changes noted
[2019-07-30] MEDS ORDERED: GLUCAGON FOR INJ 1 MG VIAL SQ PRN (16:04)
[2019-07-30] MEDS ORDERED: GLUCOSE 40% GEL 15 GM TUBE PO PRN (16:04)
[2019-07-30] MEDS ORDERED: GLUCOSE 10 TABS/TUBE PO PRN (16:04)
[2019-07-30] MEDS ORDERED: CARBOHYDRATES FOR HYPOGLYCEMIA PO PRN (16:04)
[2019-07-30] MEDS ORDERED: DEXTROSE 50% 50 ML SYRINGE IV PRN (16:04)
[2019-07-30] MEDS ORDERED: ePHEDrine sulfate 50 MG/ML SYR ONE (16:35)
[2019-07-30] MEDS ORDERED: PHENYLEPHRINE HCL 10 MG/ML VIAL ONE (16:48)
--- NOTE | 2019-07-30 16:52 | Electrocardiogram Report ---
Test Reason : Blood Pressure : / mmHG Vent. Rate : 097 BPM Atrial Rate : 097 BPM P-R Int : 190 ms QRS Dur : 094 ms QT Int : 358 ms P-R-T Axes : 073 -33 040 degrees QTc Int : 454 ms Sinus rhythm with frequent Premature ventricular complexes Possible Left atrial enlargement Left axis deviation Incomplete right bundle branch block Possible Anteroseptal infarct , age undetermined Abnormal ECG When compared with ECG of 27-APR-2019 08:32, Premature ventricular complexes are now Present Borderline criteria for Anteroseptal infarct are now Present Nonspecific T wave abnormality now evident in Anterior leads Confirmed by Mert Abdalla ([id number]) on 07/30/2019 4:51:57 PM Referred By: [facility] Confirmed By:Mert Abdalla
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
--- NOTE | 2019-07-30 18:02 | Operative Report ---
Post Operative Report Pre & Post Diagnosis Operation Date: 07/30/19 07:30 Pre-Op Diagnosis: jaundice Post-Op Diagnosis: jaundice, biliary obstruction I identified the patient and participated in the time-out.: Yes Procedure Operation Date: 07/30/19 07:30 Actual Procedures p Endoscopic Retrograde Cholangiopancreatogram, endoscopic ultrasonography, sphi ncterotomy, balloon sweep of bile duct, and biliary stent placement(Not Applicable) - Emerson Darling MD s Endoscopic Ultrasonography Upper - Emerson Darling MD Surgeon Emerson Darling MD Radar Air Traffic Controller None Estimated Blood Loss 0 Findings See Below (CBD sludge removed, stent placed) Specimens None Description of Procedure EUS/ERCP I attest to the content of the Intraoperative Record and any orders documented therein. Any exceptions are noted below.
--- NOTE | 2019-07-30 18:28 | Fluoroscopy Report ---
[place] ERCP biliary ductal CLINICAL HISTORY: Cholelithiasis. COMPARISON STUDY: Ultrasound dated 07/30/2019 FLUOROSCOPY TIME: 1 minute 45 seconds. NUMBER OF FLUOROSCOPIC IMAGES: 6 FINDINGS: 6 intraoperative fluoroscopic spot images are provided for interpretation. The common bile duct was cannulated and retrograde fashion and contrast was instilled. There is a distal common bile duct filling defect. This could represent a stone or air bubble. A sphincterotomy was performed. A ba [employer] catheter was placed at the duct. The final image demonstrates an equivocal biliary enteric sten t. IMPRESSION: Fluoroscopic spot images obtained during ERCP ACT 112: Negative or not required by law. Electronically signed by: Connor Deleon M.D. 07/30/2019 6:27 PM
--- NOTE | 2019-07-30 18:51 | Anesthesiology Progress Note ---
Date of Service July 30, 2019 Anesthesia Post Procedure Vital Signs Vital Signs: Temp Pulse Pulse Pulse Resp BP BP 07/30/19 18:50 36.3 C L 83 14 148/77 H 07/30/19 18:40 82 13 122/56 L 07/30/19 18:30 84 19 158/90 H 07/30/19 18:20 87 16 156/87 H 07/30/19 18:13 36.0 C L 91 H 20 172/95 H 07/30/19 15:27 37.3 C 80 18 163/83 H 07/30/19 14:32 99 H 18 169/96 H 07/30/19 13:30 95 H 16 169/92 H 07/30/19 13:06 100 H 19 174/102 H 07/30/19 12:00 97 H 16 168/102 H 07/30/19 11:27 37.2 C 86 20 179/93 H Pulse Ox 07/30/19 18:50 98 07/30/19 18:40 98 07/30/19 18:30 100 07/30/19 18:20 100 07/30/19 18:13 100 07/30/19 15:27 96 07/30/19 14:32 97 07/30/19 13:30 97 07/30/19 13:06 99 07/30/19 12:00 98 07/30/19 11:27 97 Transfer of Care Handoff Completed per policy Notes Mental Status: alert / awake / arousable Patient Amnestic to Procedure: Yes Nausea / Vomiting: adequately controlled Pain: adequately controlled Airway Patency, RR, SpO2: stable & adequate BP & HR: stable & adequate Hydration State: stable & adequate Anesthetic Complications: no major complications apparent and Pt Satisfied with anesthetic care
[2019-07-30] MEDS ORDERED: ACETAMINOPHEN 325 MG TAB PO PRN (19:06)
[2019-07-30] MEDS: INSULIN ASPART 100 UNITS/ML 3 ML PEN SC SCH ×2 (19:12→22:23)
--- NOTE | 2019-07-30 19:37 | GI REPORT ---
Patient Name: Farhad Dash Procedure Date: 07/30/2019 3:46 PM Date of : 1940 Admit Type: Inpatient Age: 78 Gender: Male Attending MD: Emerson Darling MD Procedure: Upper EUS Providers: Emerson Darling MD Referring MD: Janell Charles Do Indications: Elevated bilirubin, Suspected choledocholithiasis Medicines: General Anesthesia Complications: No immediate complications. Estimated Blood Loss: Estimated blood loss: none. Procedure: Pre-Anesthesia Assessment: - Prior to the procedure, a History and Physical was performed, and patient medications, allergies and sensitivities were reviewed. The patient's tolerance of previous anesthesia was reviewed. - The risks and benefits of the procedure and the sedation options and risks were discussed with the patient. All questions were answered and informed consent was obtained. - Patient identification and proposed procedure were verified prior to the procedure by the physician and the nurse. The procedure was verified in the procedure room. - Pre-procedure physical examination revealed no contraindications to sedation. After obtaining informed consent, the endoscope was passed under direct vision. Throughout the procedure, the patient's blood pressure, pulse, and oxygen saturations were monitored continuously. The Endosonoscope was introduced through the mouth, and advanced to the second part of duodenum. The upper EUS was accomplished without difficulty. The patient tolerated the procedure well. Findings: ENDOSONOGRAPHIC FINDING: Food in stomach precluding endosonographic assesment. : There was no sign of significant endosonographic abnormality in the ampulla. No masses were identified. Moderate hyperechoic material consistent with sludge was visualized endosonographically in the common bile duct. Extensive hyperechoic material consistent with sludge was visualized endosonographically in the gallbladder. There was no sign of significant endosonographic abnormality in the visualized portion of the liver. A small amount of fluid, visualized as an anechoic feature, was found in the peritoneal cavity. There was no sign of significant endosonographic abnormality in the visualized portion of the pancreas. The pancreatic duct measured up to 2.5 mm in diameter in the head and 1.5 mm in the body. There was no sign of significant endosonographic abnormality in the visualized portion of the left adrenal gland. There was no sign of significant endosonographic abnormality involving the celiac trunk. Endosonographic examination of the portal vein suggested the presence of a single small round filling defect. This filling defect was non occlusive and immobile. There was flow in the vein. Impression: - Very limited exam due to large amount of food in the stomach. - There was no sign of significant pathology in the ampulla. - Hyperechoic material consistent with sludge was visualized endosonographically in the common bile duct and gallbladder. - There was no evidence of significant pathology in the visualized portion of the liver. - Small amount of ascites was found on endosonographic examination of the peritoneal cavity. - There was no sign of significant pathology in the entire pancreas however exam is limited. PD was nondilated. - Endosonographic images of the left adrenal gland were unremarkable. - The celiac trunk was endosonographically normal. - A single filling defect was visualized endosonographically in the portal vein. Recommendation: - Perform an ERCP today. - Obtain Duplex scan of the Portal vein. - Obtain CT scan abdomen with IV contrast. Emerson Darling MD 07/30/2019 7:36:37 PM This report has been signed electronically. Note Initiated On: 07/30/2019 3:46 PM Number of Addenda: 0 I attest to the content of the Intraoperative Record and orders documented therein, exceptions below {[id number]}
--- NOTE | 2019-07-30 19:54 | GI REPORT ---
Patient Name: Farhad Dash Procedure Date: 07/30/2019 3:45 PM Date of : 1940 Admit Type: Outpatient Age: 78 Gender: Male Attending MD: Emerson Darling MD Procedure: ERCP Providers: Emerson Darling MD Referring MD: Janell Charles Do Indications: Evaluation and possible treatment of bile duct stone(s), Elevated bilirubin, Biliary sludge Medicines: General Anesthesia Complications: No immediate complications. Estimated Blood Loss: Estimated blood loss: none. Procedure: Pre-Anesthesia Assessment: - Prior to the procedure, a History and Physical was performed, and patient medications, allergies and sensitivities were reviewed. The patient's tolerance of previous anesthesia was reviewed. - The risks and benefits of the procedure and the sedation options and risks were discussed with the patient. All questions were answered and informed consent was obtained. - Patient identification and proposed procedure were verified prior to the procedure by the physician and the nurse. The procedure was verified in the procedure room. - Pre-procedure physical examination revealed no contraindications to sedation. After obtaining informed consent, the scope was passed under direct vision. Throughout the procedure, the patient's blood pressure, pulse, and oxygen saturations were monitored continuously. The Scope was introduced through the mouth, and advanced to the duodenum and used to inject contrast into the bile duct. The patient tolerated the procedure well. The ERCP was technically difficult and complex due to challenging cannulation. Findings: The certified technician film was normal. The esophagus was successfully intubated under direct vision. The scope was advanced to a normal major papilla in the descending duodenum without detailed examination of the pharynx, larynx and associated structures, and upper GI tract. The upper GI tract was grossly normal. The major papilla was on the rim of a diverticulum. Despite multiple attempts, the biliary tree could not be cannulated with a sphincterotome due to moderate edema of the duodenal fold above the ampulla and the effect of the periampullary diverticulum. A biliary pre-cut sphincterotomy was made with a monofilament needle knife using a freehand technique. There was no post-sphincterotomy bleeding. A 0.035 inch straight standard wire was passed into the biliary tree. The sphincterotome was passed over the guidewire and the bile duct was then deeply cannulated. Contrast was injected. I personally interpreted the bile duct images. Ductal flow of contrast was adequate. Image quality was adequate. Contrast extended to the main bile duct. Opacification of the main bile duct, gallbladder and intrahepatic branches was successful. The maximum diameter of the ducts was 8 mm. The lower third of the main bile duct contained filling defect(s) thought to be sludge/stone. The biliary orifice was stenotic. This appeared benign. The biliary sphincterotomy was extended with a monofilament traction (standard) sphincterotome using ERBE electrocautery. There was no post-sphincterotomy bleeding. To discover objects, the biliary tree was swept with an 11.5 mm balloon starting at the bifurcation. Sludge was swept from the duct. Few fragment of black colored stone were removed. No stones remained. One 10 Fr by 8 cm plastic biliary stent with a single external flap and a single internal flap was placed into the common bile duct. Bile flowed through the stent. The stent was in good position. Indomethacin 100 mg was given via suppository to decrease the risk of post-ERCP pancreatitis (PEP). PD was not cannulated. Impression: - The major papilla was on the rim of a diverticulum. - Benign biliary papillary stenosis. - Few fragment of black colored stone were removed by biliary sphincterotomy and balloon extraction. - One plastic biliary stent was placed into the common bile duct. Recommendation: - Return patient to [facility] care. - Avoid aspirin and nonsteroidal anti-inflammatory medicines for 5 days. - Repeat ERCP in 6 weeks to remove stent. - Refer to a surgeon for cholecystectomy. COMMENT: Unclear if the small stone that was removed is the actual cause of his abnormal liver enzymes and painless jaundice, I did not see a mass in the HOP and his ducts are nondilated. His normal INR argues against liver failure. Would complete the work of for liver disease and monitor his response to the stent placement, if Bili trends down then the stent is functional. Emerson Darling MD 07/30/2019 7:53:48 PM This report has been signed electronically. Note Initiated On: 07/30/2019 3:45 PM Number of Addenda: 0 I attest to the content of the Intraoperative Record and orders documented therein, exceptions below {[id number]}
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
[2019-07-30] MEDS ORDERED: PIPERACILL/TAZOBAC CONSULT ACTIVE PRN (20:10)
[2019-07-30 20:36] LABS: Hepatitis B Surface Antigen Neg (Neg)
[2019-07-30] MEDS ORDERED: IOVERSOL 100ml IV PRN (20:42)
--- NOTE | 2019-07-30 21:04 | CT Scan Report ---
CT pancreas 3-phase wo/w con CT DOSE: 698.82 mGy.cm CLINICAL HISTORY: biliary obstruction; eval for obstructive lesion TECHNIQUE: Unenhanced images were obtained through the upper abdomen. The patient was then scanned in a dynamic helical fashion during intravenous administration of 95 cc of Optiray 320. 30 seconds and 82nd delayed images were acquired. A dose lowering technique was utilized adhering to the principles of ALARA. COMPARISON STUDY: May 11, 2019 FINDINGS: The visualized portions of the lung bases reveal minor dependent atelectasis No hepatic masses are visualized. There is an indwelling biliary enteric stent. There is no significa nt ductal dilatation. There is contrast within the gallbladder, likely secondary to a recent ERCP No splenic masses are visualized. No pancreatic masses are visualized. There is no pancreatic ductal dilatation. There is mild left adrenal gland thickening. No renal masses are visualized. There is no hydronephrosis. There is no evidence of abdominal aortic aneurysm. There are postsurgical changes present within the lumbar spine with artifact secondary to spinal hard herman. IMPRESSION: 1. Contrast the bladder, likely secondary to a recently [employer] 2. Indwelling biliary enteric stent 3. No pancreatic or hepatic masses identified 4. No evidence of biliary or pancreatic ductal dilatation ACT 112: Negative or not required by law. Electronically signed by: Connor Deleon M.D. 07/30/2019 9:02 PM
[2019-07-30 21:16] LABS: Hepatitis C IgG 13Yrs+Old_Rflx Neg (Neg)
[2019-07-30] MEDS ORDERED: PIPERACILLIN/TAZOBACTAM 3.375 GM in DEXTROSE 5% 100 ML IV ONE (21:30)
--- NOTE | 2019-07-30 21:33 | Ultrasound Report ---
US duplex portal hepatic veins CLINICAL HISTORY: Possible portal vein thrombus COMPARISON STUDY: CT scan dated 12/30/2019 FINDINGS: The hepatic veins are patent with normal directional flow. The portal veins are patent with normal directional flow. The splenic vein is patent. The hepatic artery is patent. IMPRESSION: 1. No evidence of portal vein thrombus 2. No evidence of hepatic vein thrombus. ACT 112: Negative or not required by law. Electronically signed by: Connor Deleon M.D. 07/30/2019 9:32 PM
[2019-07-30] MEDS: LACTATED RINGER'S 1,000 ML IV SCH (21:58)
[2019-07-31] MEDS: PIPERACILLIN/TAZOBACTAM 3.375 GM in DEXTROSE 5% 100 ML IV SCH ×3 (01:30→18:07)
[2019-07-31] MEDS: LACTATED RINGER'S 1,000 ML IV SCH ×3 (04:51→18:07)
[2019-07-31] MEDS: LEVOTHYROXINE SODIUM 75 MCG TABLET PO SCH (05:45)
[2019-07-31 07:00] LABS: Estimated Average Glucose 108 mg/dl; Hemoglobin A1C 5.4 % (4.5-5.6)
[2019-07-31 07:29] LABS: Albumin Globulin Ratio 0.8 (0.9-2); Albumin Level 2.5 gm/dl (3.4-5.0); BUN Creatinine Ratio 21.2 (10-20); Bilirubin,Total 5.6 mg/dl (0.2-1); Calcium 8.5 mg/dl (8.5-10.1); Creatinine Clr Calc Pharmacy 75.2 ml/min; Est GFR (African American) 96.3; Est GFR (Non-African American) 83.1; Globulin 3.2 gm/dl (2.5-4.0); Potassium 4.2 mmol/L (3.5-5.1); Total Protein 5.7 gm/dl (6.4-8.2)
[2019-07-31] MEDS: INSULIN ASPART 100 UNITS/ML 3 ML PEN SC SCH ×4 (08:40→20:57)
[2019-07-31] MEDS: PANTOprazole 40 MG TAB PO SCH (08:41)
--- NOTE | 2019-07-31 11:59 | Surgery Progress Note ---
Date of Service pt feels better, no nausea, no vomiting, less abdominal pain, July 31, 2019 Assessment & Plan (1) Acute cholecystitis: pt is a 78 year-old male who was admitted to hospital for jaundice, S/P ERCP, IMP: acute cholecystitis, gallbladder sludge, S/P ERCP, pancreatitis I recommend to do laparoscopic cholecystectomy possible open or cholangiogram on 08/01/2019, D/W benefits, risks nad alternatives of marlene surgery, the risks - infection, bleeding, injury CBD, ID, DVT, stroke, , pt and his understood, they agree with the surgery, I answered all questions, repeat labs in am, will F/U NPO after MN on 07/31/2019, 07/31/2019 11:57AM doing better, laparoscopic cholecystectomy tomorrow, NPO after MN, I answered all questions, (2) Gallstone pancreatitis: (3) Transaminitis: Supervising Physician Co-Signing Physician Notes I have seen and examined the patient and have discussed the case with the provider above. I agree with the assessment and plan as stated with the following exceptions. 78 yo M with acute obstructive jaundice after recent hip surgery. The patient presented with painless jaundice to the ER today, denying abdominal pain, changes in bowels, night sweats, weight loss or other B symptoms. Labwork reflected a possible obstruction of the biliary tree and GI was consulted. RUQ us revealed possible acute cholecystitis, however, patient was afebrile and not appearing infected. Still, Zosyn was started empirically, and he was immediately taken to the OR for an ERCP. Choledocholithiasis was found without evidence of obstructing mass. A stent was placed in the biliary duct and he was returned to the [facility] at which point I evaluated him. He was comfortable and requesting something to drink. His was at the bedside. He denies any pain but has several questions understandably. He reports being 50% weight bearing on the right hip at this point in his rehab. He has a dressing over the right leg surgical wound that reportedly is to stay in place until his post-op appointment on 07/31. Physical exam otherwise reveals a jaundiced patient with scleral icterus. Normal respiratory effort with clear lungs to auscultation, normal cardiac exam, and abdomen that is soft nontender and nondistended. Extremities are warm and well-perfused. General surgeon was coming in to speak with the patient as I was leaving and will plan for a cholecystectomy next week, possibly 07/31. Will consult wound care, PT/OT to continue rehab efforts and appreciate subspecialty input into care. He will start with a clear liquid diet for now until lipase trends down and we ensure there is no post-ERCP pancreatitis. Cont supportive care and cont Zosyn. Blood cultures were not drawn but will monitor clinical progress. Review of Systems Constitutional: as per Subjective / HPI Ear, Nose, Mouth, Throat: as per Subjective / HPI Respiratory: as per Subjective / HPI Cardiovascular: as per Subjective / HPI Additional Comments: CABG X2 Gastrointestinal: as per Subjective / HPI Genitourinary: + as per Subjective / HPI Musculoskeletal: as per Subjective / HPI Right hip surgery Integumentary: as per Subjective / HPI Neurologic: as per Subjective / HPI Psychiatric: as per Subjective / HPI Endocrine: as per Subjective / HPI DM Physical Exam Constitutional: WD/WN, vitals as above well developed and well nourished Eyes: PERRL, conjunctivae normal, anicteric sclerae ENMT: external ear and nose normal, oropharynx normal Neck: trachea midline, no thyromegaly Respiratory: normal respiratory effort, lungs clear to auscultation Cardiovascular: RRR, no murmur, no edema Rate/Rhythm: regular rate and regular rhythm Gastrointestinal (Abdomen): normal bowel sounds, soft, nontender, no hepatosplenomegaly Skin: no rashes, warm and dry Neurologic: awake Psychiatric: Orientation: alert and oriented x 3 Results & Data Vital Signs (Past 12 Hours) Vital Signs Temp Pulse Pulse Pulse Resp BP BP 07/31/19 11:32 36.5 C 74 20 96/59 L 07/31/19 08:49 77 07/31/19 06:25 36.7 C 82 20 107/54 L 07/31/19 04:53 82 07/31/19 02:39 36.6 C 77 19 131/71 07/31/19 00:16 36.5 C 78 18 136/66 Pulse Ox 07/31/19 11:32 100 07/31/19 08:49 07/31/19 06:25 96 07/31/19 04:53 07/31/19 02:39 98 07/31/19 00:16 96 Laboratory Results Abnormal lab results 07/30/19 07/30/1907/29/20 Range/Units 11:45 12:03 12:03 RBC 3.40 L (4.7-6.1) M/uL Hgb 10.8 L (14.0-18.0) g/dL Hct 32.3 L (42-52) % RDW Std Deviation 50.4 H (36.4-46.3) fL RDW Coeff of Mara 15.0 H (11.5-14.5) % Immature Gran # (Auto) 0.03 H (0.00-0.02) K/uL Neut # (Auto) 7.00 H (1.4-6.5) K/uL Lymph # (Auto) 0.77 L (1.2-3.4) K/uL [place] # (Auto) 1.23 H (0.11-0.59) K/uL Sodium 132 L (136-145) mmol/L Chloride 97 L (98-107) mmol/L BUN 19 H (7-18) mg/dl BUN/Creatinine Ratio 20.3 H (10-20) Glucose 237 H (70-99) mg/dl POC Glucose (70-99) mg/dl Total Bilirubin 12.7 H (0.2-1) mg/dl AST 467 H (15-37) U/L ALT 398 H (12-78) U/L Alkaline Phosphatase 578 H (45-117) U/L Total Protein 6.3 L (6.4-8.2) gm/dl Albumin 2.9 L (3.4-5.0) gm/dl Albumin/Globulin Ratio (0.9-2) Lipase (73-393) U/L Urine Glucose (UA) 1+ H (Negative) Urine Ketones Trace H (Negative) Urine Bilirubin 1+ H (Negative) 07/30/19 07/30/19 07/30/19 Range/Units 12:03 15:32 18:14 RBC (4.7-6.1) M/uL Hgb (14.0-18.0) g/dL Hct (42-52) % RDW Std Deviation (36.4-46.3) fL RDW Coeff of Mara (11.5-14.5) % Immature Gran # (Auto) (0.00-0.02) K/uL Neut # (Auto) (1.4-6.5) K/uL Lymph # (Auto) (1.2-3.4) K/uL [place] # (Auto) (0.11-0.59) K/uL Sodium (136-145) mmol/L Chloride (98-107) mmol/L BUN (7-18) mg/dl BUN/Creatinine Ratio (10-20) Glucose (70-99) mg/dl POC Glucose 222 H 212 H (70-99) mg/dl Total Bilirubin (0.2-1) mg/dl AST (15-37) U/L ALT (12-78) U/L Alkaline Phosphatase (45-117) U/L Total Protein (6.4-8.2) gm/dl Albumin (3.4-5.0) gm/dl Albumin/Globulin Ratio (0.9-2) Lipase 1905 H (73-393) U/L Urine Glucose (UA) (Negative) Urine Ketones (Negative) Urine Bilirubin (Negative) 07/30/19 07/30/19 07/31/19 Range/Units 18:44 20:30 05:53 RBC (4.7-6.1) M/uL Hgb (14.0-18.0) g/dL Hct (42-52) % RDW Std Deviation (36.4-46.3) fL RDW Coeff of Mara (11.5-14.5) % Immature Gran # (Auto) (0.00-0.02) K/uL Neut # (Auto) (1.4-6.5) K/uL Lymph # (Auto) (1.2-3.4) K/uL [place] # (Auto) (0.11-0.59) K/uL Sodium (136-145) mmol/L Chloride (98-107) mmol/L BUN 19 H (7-18) mg/dl BUN/Creatinine Ratio 21.2 H (10-20) Glucose 169 H (70-99) mg/dl POC Glucose 193 H 188 H (70-99) mg/dl Total Bilirubin 5.6 H D (0.2-1) mg/dl AST 179 H (15-37) U/L ALT 279 H (12-78) U/L Alkaline Phosphatase 453 H (45-117) U/L Total Protein 5.7 L (6.4-8.2) gm/dl Albumin 2.5 L (3.4-5.0) gm/dl Albumin/Globulin Ratio 0.8 L (0.9-2) Lipase 1127 H (73-393) U/L Urine Glucose (UA) (Negative) Urine Ketones (Negative) Urine Bilirubin (Negative) 07/31/19 07/31/19 Range/Units 07:22 11:37 RBC (4.7-6.1) M/uL Hgb (14.0-18.0) g/dL Hct (42-52) % RDW Std Deviation (36.4-46.3) fL RDW Coeff of Mara (11.5-14.5) % Immature Gran # (Auto) (0.00-0.02) K/uL Neut # (Auto) (1.4-6.5) K/uL Lymph # (Auto) (1.2-3.4) K/uL [place] # (Auto) (0.11-0.59) K/uL Sodium (136-145) mmol/L Chloride (98-107) mmol/L BUN (7-18) mg/dl BUN/Creatinine Ratio (10-20) Glucose (70-99) mg/dl POC Glucose 187 H 256 H (70-99) mg/dl Total Bilirubin (0.2-1) mg/dl AST (15-37) U/L ALT (12-78) U/L Alkaline Phosphatase (45-117) U/L Total Protein (6.4-8.2) gm/dl Albumin (3.4-5.0) gm/dl Albumin/Globulin Ratio (0.9-2) Lipase (73-393) U/L Urine Glucose (UA) (Negative) Urine Ketones (Negative) Urine Bilirubin (Negative)
--- NOTE | 2019-07-31 13:59 | Gastroenterology Progress Note ---
Date of Service July 31, 2019 Assessment & Plan (1) Elevated LFTs: (2) Choledocholithiasis: s/p ERCP with stone extraction and stent placement. Recs: 1. supportive care, pain control prn 2. CCY as per surgery 3. rest as per primary team 4.will need follow up with Dr. Darling as an outpatient (3) Acute cholecystitis: Admission and Anticipated Discharge Date Admission Date: July 30, 2019 Subjective no events overnight. underwent ERCP with stone extraction and stent placement yesterday. scheduled for CCY tomorrow. feels well, no abd pains, n/v. LFTs improving. Review of Systems Constitutional: no fever and no chills Respiratory: no cough, no dyspnea and no dyspnea on exertion Cardiovascular: no chest pain and no dyspnea Gastrointestinal: as per Subjective / HPI Psychiatric: no depression and no anxiety Physical Exam Constitutional: WD/WN, vitals as above Respiratory: normal respiratory effort, lungs clear to auscultation Cardiovascular: RRR, no murmur, no edema Gastrointestinal (Abdomen): normal bowel sounds, soft, nontender, no hepatosplenomegaly Musculoskeletal: no lower extremity edema Psychiatric: A+Ox3, euthymic affect Results & Data Results & Data ([facility]) Vital Signs (Past 12 Hours) Vital Signs Temp Pulse Pulse Pulse Resp BP Pulse Ox 07/31/19 11:32 36.5 C 74 20 96/59 L 100 07/31/19 08:49 77 07/31/19 06:25 36.7 C 82 20 107/54 L 96 07/31/19 04:53 82 07/31/19 02:39 36.6 C 77 19 131/71 98 PG Care Time/CCT Total # of Minutes Spent Total Time Spent with Patient: Total time spent is greater than 50% in coordination of care (as documented) at patient's floor/unit and/or counseling patient: Coding Level of Care Code 88637 Subseq Hosp Care Lvl 3 Diagnoses Elevated LFTs R94.5 Choledocholithiasis K80.50 Acute cholecystitis K81.0
--- NOTE | 2019-07-31 14:10 | Hospitalist Progress Note ---
Date of Service July 31, 2019 Assessment & Plan (1) Benign obstructive jaundice: 2/2 choledocholithiasis with sludge. biliary stent in place and patient is less jaundiced today with a decreased bilirubin count. Planned for lap yokasta in am. (2) Transaminitis: Decreased after ERCP and stent placement yesterday. (3) Gallstone pancreatitis: No clinical pancreatitis is present, however, there is an elevated lipase which may also be reactive which is lower today. (4) Acute cholecystitis: Equivocal imaging studies, however, patient has no pain or overt infec tion. Continuing Zosyn empirically. Planned for yokasta tomorrow. (5) CAD (coronary artery disease): -Appears stable, no reports of chest pain -Patient currently on full dose aspirin for DVT prophylaxis from recent hip surgery, which is on hold 2/2 upcoming surgery. -Hold statin due to transaminitis -Not on beta-klever, ABILIO/ARB secondary to bradycardia and hypotension in the past -Follows with [facility] cardiology (6) Diabetes mellitus, type 2: -Hgb A1c 5.5 04/2019 -Hold oral agents and utilize NovoLog per protocol while hospitalized -currently at goal (7) GERD (gastroesophageal reflux disease): -Continue PPI (8) Hip fracture requiring operative repair: -Right periprosthetic hip fracture treated at [facility] 07/23/2019, had a large amount of blood loss intraoperatively, requiring 6 units PRBC -Hgb stable today at 10.8 -Currently at [facility] for rehab and is 50% WBAT to the right leg. PT/OT consulted here to continue working with him. (9) DVT prophylaxis: -SCDs due to invasive procedure and upcoming surgery Full Code Dispo-cont hospitalization [facility] Admission and Anticipated Discharge Date Admission Date: July 30, 2019 Subjective Feeling well, denies abdominal pain. Reports laparoscopic cholecystectomy is planned for tomorrow. Prefers to stick to clear liquids because of this. Denies any fever, chills, nausea, vomiting overnight. Overall looks less yellow today and labs have improved. Review of Systems Review of Systems: All systems reviewed & are unremarkable except as noted in Subjective Physical Exam Physical Exam: CONSTITUTIONAL: WNWD, vitals as above, generally well- appearing, +jaundice that has improved. EYES: normal conjunctivae, +scleral icterus ENT: external ear and nose normal, MMM RESPIRATORY: clear to auscultation bilaterally, no crackles, rales or wheezes, normal respiratory effort CARDIOVASCULAR: regular rate and rhythm, S1 and 2 heard without murmurs, gallops or rubs, no JVD, no peripheral edema GASTROINTESTINAL: normal bowel sounds, soft, nontender, nondistended MUSCULOSKELETAL: strength 5/5 throughout, head is normocephalic and atraumatic SKIN: warm and dry NEUROLOGIC: CN 2-12 grossly intact, normal cognition, no gross focal deficits. PSYCHIATRIC: alert cooperative and oriented to person, place and time. Results & Data ([facility]) Vital Signs (Past 12 Hours) Vital Signs Temp Pulse Pulse Pulse Resp BP Pulse Ox 07/31/19 11:32 36.5 C 74 20 96/59 L 100 07/31/19 08:49 77 07/31/19 06:25 36.7 C 82 20 107/54 L 96 07/31/19 04:53 82 07/31/19 02:39 36.6 C 77 19 131/71 98 Laboratory Results [facility] 07/31/19 05:53 Sodium 137 Potassium 4.2 Chloride 104 Carbon Dioxide 29 BUN 19 H Creatinine 0.89 Glucose 169 H Calcium 8.5 Liver Function 07/31/19 Range/Units 05:53 Total Bilirubin 5.6 H D (0.2-1) mg/dl AST 179 H (15-37) U/L ALT 279 H (12-78) U/L Alkaline Phosphatase 453 H (45-117) U/L Albumin 2.5 L (3.4-5.0) gm/dl Diagnostic Findings US duplex portal hepatic veins CLINICAL HISTORY: Possible portal vein thrombus COMPARISON STUDY: CT scan dated 12/30/2019 FINDINGS: The hepatic veins are patent with normal directional flow. The portal veins are patent with normal directional flow. The splenic vein is patent. The hepatic artery is patent. IMPRESSION: 1. No evidence of portal vein thrombus 2. No evidence of hepatic vein thrombus. CT pancreas 3-phase wo/w con FINDINGS: The visualized portions of the lung bases reveal minor dependent atelectasis No hepatic masses are visualized. There is an indwelling biliary enteric stent. There is no significant ductal dilatation. There is contrast within the gallbladder, likely secondary to a recent ERCP No splenic masses are visualized. No pancreatic masses are visualized. There is no pancreatic ductal dilatation. There is mild left adrenal gland thickening. No renal masses are visualized. There is no hydronephrosis. There is no evidence of abdominal aortic aneurysm. There are postsurgical changes present within the lumbar spine with artifact secondary to spinal hardware. IMPRESSION: 1. Contrast the bladder, likely secondary to a recently [employer] 2. Indwelling biliary enteric stent 3. No pancreatic or hepatic masses identified 4. No evidence of biliary or pancreatic ductal dilatation Medications Administered Current Inpatient Medications Acetaminophen (Tylenol) 650 mg PO Q4H PRN PRN Reason: pain/fever Stop: 08/29/19 19:05 Dextrose (Dextrose 50%) 25 - 50 ml IV UD PRN; Protocol PRN Reason: Hypoglycemia Protocol Stop: 08/29/19 16:03 Glucagon (Glucagen) 1 mg SQ UD PRN; Protocol PRN Reason: Hypoglycemia Protocol Stop: 08/29/19 16:03 Glucose (Dex4 Glucose) 4 - 8 tabs PO UD PRN; Protocol PRN Reason: Hypoglycemia Protocol Stop: 08/29/19 16:03 Glucose (Glucose 40%) 15 - 30 gm PO UD PRN; Protocol PRN Reason: Hypoglycemia Protocol Stop: 08/29/19 16:03 Lactated Ringer's (Lr) 1,000 mls @ 150 mls/hr IV .Q6H40M [facility] Stop: 08/29/19 14:59 Last Admin: 07/31/19 11:24 Dose: 150 mls/hr Documented by: Piperacillin Sod/Tazobactam (Sod 3.375 gm/ Dextrose) 115 mls @ 28.75 mls/hr IV Q8H [facility]; Protocol Stop: 08/09/19 20:59 Last Infusion: 07/31/19 14:00 Dose: Infused Documented by: Insulin Aspart (Novolog Flexpen) 0 units SC ACHS [facility] Stop: 08/29/19 16:29 Last Admin: 07/31/19 12:04 Dose: 5 units Documented by: Ioversol (Optiray 320 100ml) 95 ml IV ONCE PRN PRN Reason: Interaction Checking Stop: 08/03/19 20:41 Last Admin: 07/30/19 20:43 Dose: 95 ml Documented by: Levothyroxine Sodium (Synthroid) 75 mcg PO DAILYBB [facility] Stop: 08/30/19 06:29 Last Admin: 07/31/19 05:45 Dose: 75 mcg Documented by: Miscellaneous (Carbohydrates For Hypoglycemia) 15 - 30 gm PO UD PRN PRN Reason: Hypoglycemia Protocol Stop: 08/29/19 16:03 Miscellaneous Information (Consult) 1 ea N/A UD PRN PRN Reason: Consult Stop: 08/29/19 20:09 Pantoprazole Sodium (Protonix) 40 mg PO QAM [facility] Stop: 08/30/19 08:59 Last Admin: 07/31/19 08:41 Dose: 40 mg Documented by: (1) Diabetes mellitus, type 2 Diabetes mellitus complication status: without complication Diabetes mellitus custodial insulin use: without termite control representative use Qualified Code(s): E11.9 - Type 2 diabetes mellitus without complications (2) Hip fracture requiring operative repair Encounter type: sequela Fracture type: closed Laterality: right Qualified Code(s): S72.001S - Fracture of unspecified part of neck of right femur, sequela
[2019-07-31] MEDS ORDERED: OXYCODONE HCL IR 5 MG TAB (IMMEDIATE RELEASE) PO PRN (17:20)
[2019-08-01] MEDS: LACTATED RINGER'S 1,000 ML IV SCH ×2 (00:57→15:43)
[2019-08-01] MEDS: PIPERACILLIN/TAZOBACTAM 3.375 GM in DEXTROSE 5% 100 ML IV SCH ×3 (00:57→19:26)
[2019-08-01] MEDS: LEVOTHYROXINE SODIUM 75 MCG TABLET PO SCH (05:53)
[2019-08-01 05:59] LABS: Hematocrit (blood only) 26.9 % (42-52); Hemoglobin 8.9 g/dL (14.0-18.0); Mean Corpuscular Hemoglobin 32.1 pg (25-34); Mean Corpuscular Hgb Conc 33.1 g/dL (32-36); Mean Corpuscular Volume 97.1 fL (80-100); Mean Platelet Volume 8.9 fL (7.4-10.4); Platelet Count 298 K/uL (130-400); RDW Coefficient of Variation 16.1 % (11.5-14.5); RDW Standard Deviation 55.1 fL (36.4-46.3); Red Blood Count 2.77 M/uL (4.7-6.1); White Blood Count 7.24 K/uL (4.8-10.8)
[2019-08-01] MEDS ORDERED: INSULIN ASPART 100 UNITS/ML 3 ML PEN SC SCH (06:00)
[2019-08-01 06:48] LABS: Albumin Globulin Ratio 0.8 (0.9-2); Albumin Level 2.4 gm/dl (3.4-5.0); BUN Creatinine Ratio 14.3 (10-20); Bilirubin,Total 3.6 mg/dl (0.2-1); Calcium 8.6 mg/dl (8.5-10.1); Creatinine Clr Calc Pharmacy 80.6 ml/min; Est GFR (African American) 99.1; Est GFR (Non-African American) 85.5; Globulin 3.1 gm/dl (2.5-4.0); Potassium 3.9 mmol/L (3.5-5.1); Total Protein 5.5 gm/dl (6.4-8.2)
[2019-08-01] MEDS ORDERED: ePHEDrine sulfate 50 MG/ML AMP ONE (07:01)
[2019-08-01] MEDS ORDERED: DEXAMETHASONE SOD INJ 4 MG/ML VIAL ONE (07:01)
[2019-08-01] MEDS ORDERED: GLYCOPYRROLATE 0.2 MG/ML VIAL ONE (07:01)
[2019-08-01] MEDS ORDERED: PHENYLEPHRINE HCL 10 MG/ML VIAL ONE (07:01)
[2019-08-01] MEDS ORDERED: fentaNYL citrate 100 MCG/2 ML VIAL ONE (07:01)
[2019-08-01] MEDS ORDERED: ONDANSETRON INJ 2 MG/ML 2 ML VIAL ONE (07:01)
[2019-08-01] MEDS ORDERED: SUCCINYLCHOLINE CHLORIDE 20 MG/ML 10 ML VIAL ONE (07:01)
[2019-08-01] MEDS ORDERED: MIDAZOLAM HCL 1 MG/ML 2ML VIAL ONE (07:01)
[2019-08-01] MEDS ORDERED: NEOSTIGMINE METHYLSULFATE 5 MG/5 ML SYR ONE (07:01)
[2019-08-01] MEDS ORDERED: PROPOFOL IV EMULSION 10 MG/ML 20 ML VIAL IV ONE (07:01)
[2019-08-01] MEDS ORDERED: LIDOCAINE HCL 2% 2 ML VIAL/AMP(20MG/ML) INFIL ONE (07:01)
[2019-08-01] MEDS ORDERED: BUPIVACAINE 0.5 % 5 MG/1 ML MPF 30ML VIAL ONE (07:08)
[2019-08-01] MEDS ORDERED: LIDOCAINE HCL 1% 20 ML VIAL ONE (07:08)
[2019-08-01] MEDS ORDERED: BACITRACIN OINT 15 GM TUBE ONE (07:09)
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
[2019-08-01] MEDS ORDERED: ONDANSETRON INJ 2 MG/ML 2 ML VIAL IV PRN (07:26)
[2019-08-01] MEDS ORDERED: ATROPINE SULFATE 0.1 MG/ML 10ML SYR IV PRN (07:26)
[2019-08-01] MEDS ORDERED: KETOROLAC 30 MG/ML VIAL IV PRN (07:26)
[2019-08-01] MEDS ORDERED: LABETALOL HCL IV 5 MG/ML 20ML IV PRN (07:26)
[2019-08-01] MEDS ORDERED: HYDROmorphone INJ 1 MG/ML SYRINGE IV PRN (07:26)
[2019-08-01] MEDS ORDERED: CEFAZOLIN 2000MG 2,000 MG/15 ML SYR IV ONE ×2 (07:36→08:18)
--- NOTE | 2019-08-01 07:36 | History & Physical Bridge Note ---
Date of Service August 01, 2019 History & Physical Bridge Note I have examined the patient, reviewed the History & Physical and in the interval since the performance of the History & Physical I have noted the following changes of clinical significance: no changes noted Supervising Physician Co-Signing Physician Notes I have seen and examined the patient and have discussed the case with the provider above. I agree with the assessment and plan as stated with the following exceptions. 78 yo M with acute obstructive jaundice after recent hip surgery. The patient presented with painless jaundice to the ER today, denying abdominal pain, changes in bowels, night sweats, weight loss or other B symptoms. Labwork reflected a possible obstruction of the biliary tree and GI was consulted. RUQ us revealed possible acute cholecystitis, however, patient was afebrile and not appearing infected. Still, Zosyn was started empirically, and he was immediately taken to the OR for an ERCP. Choledocholithiasis was found without evidence of obstructing mass. A stent was placed in the biliary duct and he was returned to the [facility] at which point I evaluated him. He was comfortable and requesting something to drink. His was at the bedside. He denies any pain but has several questions understandably. He reports being 50% weight bearing on the right hip at this point in his rehab. He has a dressing over the right leg surgical wound that reportedly is to stay in place until his post-op appointment on 07/31. Physical exam otherwise reveals a jaundiced patient with scleral icterus. Normal respiratory effort with clear lungs to auscultation, normal cardiac exam, and abdomen that is soft nontender and nondistended. Extremities are warm and well-perfused. General surgeon was coming in to speak with the patient as I was leaving and will plan for a cholecystectomy next week, possibly 07/31. Will consult wound care, PT/OT to continue rehab efforts and appreciate subspecialty input into care. He will start with a clear liquid diet for now until lipase trends down and we ensure there is no post-ERCP pancreatitis. Cont supportive care and cont Zosyn. Blood cultures were not drawn but will monitor clinical progress.
[2019-08-01] MEDS ORDERED: WATER, STERILE FOR INJ 10 ML VIAL ONE (07:45)
[2019-08-01] MEDS ORDERED: CEFAZOLIN 250 MG/ML 1 GM VIAL ONE (07:45)
[2019-08-01] MEDS ORDERED: ROCURONIUM BROMIDE 10 MG/ML 5 ML VIAL ONE (08:25)
--- NOTE | 2019-08-01 09:23 | Post Operative Brief Note ---
Immediate Post Op Note v1 Date of Surgery August 01, 2019 Pre & Post Diagnosis Operation Date: 07/30/19 07:30 Pre-Op Diagnosis: jaundice Post-Op Diagnosis: jaundice, biliary obstruction Operation Date: 08/01/19 07:30 Pre-Op Diagnosis:, acute cholecystitis, cholelithiasis TRANSAMINITIS Post-Op Diagnosis: TRANSAMINITIS, acute cholecystitis, cholelithiasis I identified the patient and participated in the time-out.: Yes Procedure Operation Date: 07/30/19 07:30 Actual Procedures p Endoscopic Retrograde Cholangiopancreatogram, endoscopic ultrasonography, sphincterotomy, balloon sweep of bile duct, and biliary stent placement(Not Applicable) - Emerson Darling MD s Endoscopic Ultrasonography Upper - Emerson Darling MD Operation Date: 08/01/19 07:30 Actual Procedures p Laparoscopic Cholecystectomy(Not Applicable) - Julien Bowen MD Surgeon Julien Bowen MD Step Finisher director medical surgical Estimated Blood Loss 20 Findings Consistent with Post-Op Diagnosis Fluids 1100ml Specimens gallbladder Anesthesia Type General Complications none Disposition Accompanied Patient To Recovery: Yes Disposition: Recovery Room Overlapping Procedure I was immediately available: during the entire case.
[2019-08-01] MEDS ORDERED: INSULIN REGULAR PUMP SCH (10:39)
--- NOTE | 2019-08-01 10:48 | Anesthesiology Progress Note ---
Date of Service August 01, 2019 Anesthesia Post Procedure Vital Signs Vital Signs: Temp Pulse Pulse Pulse Resp BP BP 08/01/19 10:20 36.3 C L 84 14 130/64 08/01/19 10:10 87 14 130/67 08/01/19 10:00 85 16 143/76 H 08/01/19 09:50 88 18 155/73 H 08/01/19 09:40 87 20 152/79 H 08/01/19 09:32 36.4 C L 89 18 124/85 08/01/19 07:08 37.0 C 84 16 164/82 H 07/31/19 23:33 36.9 C 89 16 117/62 07/31/19 18:45 37.4 C 92 H 18 124/68 07/31/19 15:54 72 07/31/19 14:44 36.9 C 70 20 106/66 07/31/19 11:32 36.5 C 74 20 96/59 L Pulse Ox 08/01/19 10:20 95 08/01/19 10:10 96 08/01/19 10:00 95 08/01/19 09:50 98 08/01/19 09:40 100 08/01/19 09:32 99 08/01/19 07:08 99 07/31/19 23:33 99 07/31/19 18:45 93 07/31/19 15:54 07/31/19 14:44 100 07/31/19 11:32 100 Transfer of Care Handoff Completed per policy Notes Mental Status: alert / awake / arousable Patient Amnestic to Procedure: Yes Nausea / Vomiting: adequately controlled Pain: adequately controlled Airway Patency, RR, SpO2: stable & adequate BP & HR: stable & adequate Hydration State: stable & adequate Anesthetic Complications: no major complications apparent
[2019-08-01] MEDS ORDERED: HYDROCODONE/ACETAMOPHEN 5/325MG TAB PO PRN (10:59)
[2019-08-01] MEDS ORDERED: LACTATED RINGER'S 1,000 ML IV SCH ×2 (11:00→21:00)
[2019-08-01] MEDS: PANTOprazole 40 MG TAB PO SCH (11:23)
--- NOTE | 2019-08-01 11:39 | Operative Report (OR) ---
DATE OF OPERATION: 08/01/2019 PREOPERATIVE DIAGNOSES: Acute cholecystitis, cholelithiasis. POSTOPERATIVE DIAGNOSES: Acute cholecystitis, cholelithiasis. PROCEDURE: Laparoscopic cholecystectomy. SURGEON: Julien Boewn MD ANESTHESIA: General. ESTIMATED BLOOD LOSS: About 20 mL. FINDINGS: Significant inflammation on the gallbladder wall, diagnosis of acute cholecystitis. COMPLICATIONS: None. INDICATIONS FOR THE PROCEDURE: This is a 78-year-old gentleman who was admitted to hospital for acute abdominal pain and increased liver enzymes. The patient had ERCP done a couple of days ago and now patient ready to do the laparoscopic cholecystectomy. Also, the patient diagnosis is acute cholecystitis, cholelithiasis. I recommended to do the laparoscopic cholecystectomy, possible open, possible cholangiogram. I did talk to the patient about the benefits, the risks, alternate procedures. I indicated the risks may include, but not limited, such as bleeding, infection, injury to common bile duct, myocardial infarction, stroke, DVT, even . The patient and patient's understand. The patient signed informed consent and I answered all questions. DETAILS OF PROCEDURE: We brought in the patient to the OR, put the patient in the supine position. The patient received SCD on bilateral legs to prevent DVT. Also, patient received 2 grams Ancef IV for prophylactic antibiotic. The patient received general anesthesia without difficulties. Abdomen was prepped and draped in routine sterile fashion. After time-out, I injected local anesthesia by using 1% lidocaine mixed with 0.5% Marcaine just above the umbilicus. Then I made a small incision just above umbilicus, opened fascia and opened peritoneum under direct vision, put a Adin trocar in, connected to CO2 to create pneumoperitoneum. Flow rate is 6 liter per minute. Pressure not more than 14 mmHg. Once we got a nice pneumoperitoneum, we put the camera in, looked around the abdomen. Normal finding on the liver. However, the gallbladder has significant distention, gallbladder wall thickening, edema, confirmed diagnosis of acute cholecystitis. Then, we put another three 5 mm trocars on the right upper quadrant. However, the gallbladder had significant distention. We had to use a large needle to decompress the gallbladder first. Then, we used the grasper to hold the base of gallbladder, put direction to the diaphragm, another grasper to hold the pouch of gallbladder, put the latter to expunge triangle of Calot. Cystic duct was identified. The cystic duct has significant dilatation, size about 1 cm diameter and mobilized the cystic duct. Then we had to change the epigastric 5 mm trocar to 12 mm trocar. Then we chose the 12 mm metal clips on the proximal cystic duct x2 and on the distal cystic duct x1. We used the scissors for transection of cystic duct. Rechecked the cystic duct, no bile leak. The cystic artery was identified and mobilized. I put two 5 mm metal clips on the proximal cystic artery, one on the distal cystic artery, then used the scissors for transection of cystic artery. Rechecked, no active bleeding. Then we used the Bovie to take down gallbladder from liver bed. Rechecked, no active bleeding, no bile leak from liver bed. Then we removed gallbladder through the catch bag, then we reinserted Adin trocar in, connected to CO2 to create pneumoperitoneum. Again looked around the abdomen, no active bleeding, no bile leak from the liver bed. Then we removed all trocar under direct vision. No active bleeding from the trocar sites. Pneumoperitoneum was released. We then closed the umbilical incision, fascial layer by using #1 Vicryl [id number] x2, closed subcutaneous layer by using 2-0 Vicryl interruptedly, closed skin by using 4-0 Vicryl continuous running, closed the epigastric area 12 trocar fascial layer by using #1 Vicryl [id number] x2, closed subcutaneous layer by using 2-0 Vicryl interruptedly, closed skin by using 4-0 Vicryl interruptedly and closed another two 5 mm trocar site skin only by using 4-0 Vicryl. Then we put the dressing on. The patient tolerated the procedure well. All the instrument, needle and sponge count were correct x2 at the end of the case. The patient was transferred to recovery room in stable condition. The specimen sent to pathology. I attest to the content of the Intraoperative Record and any orders documented therein. Any exception s are noted below.
[2019-08-01] MEDS: INSULIN GLARGINE SOLOSTAR 100 UNITS/ML 3 ML PEN SC SCH ×2 (12:24→21:05)
[2019-08-01] MEDS: INSULIN ASPART 100 UNITS/ML 3 ML PEN SC SCH ×3 (12:26→22:20)
[2019-08-01] MEDS ORDERED: METFORMIN HCL 500 MG TAB PO SCH (17:00)
--- NOTE | 2019-08-01 17:51 | Hospitalist Progress Note ---
Date of Service August 01, 2019 Assessment & Plan (1) Benign obstructive jaundice: 2/2 choledocholithiasis with sludge. Biliary stent in place. Jaundice has resolved. Bili and LFTs decreased. Lap yokasta today went very well. Cont supportive care. Cont Zosyn for now. (2) Transaminitis: Decreased after ERCP and stent placement. (3) Acute cholecystitis: Equivocal imaging studies, however, patient has no pain or overt infection. Continuing Zosyn empirically. s/p lap yokasta this morning. (4) CAD (coronary artery disease): -stable, no reports of chest pain -Patient currently on full dose aspirin for DVT prophylaxis from recent hip surgery, which is on hold 2/2 recent surgery. -Hold statin due to transaminitis -Not on beta-klever, ABILIO/ARB secondary to bradycardia and hypotension in the past -Follows with [facility] cardiology (5) Diabetes mellitus, type 2: -Hgb A1c 5.5 04/2019 -Hold oral agents and utilize NovoLog per protocol while hospitalized -currently at goal (6) GERD (gastroesophageal reflux disease): -Continue PPI (7) Hip fracture requiring operative repair: -Right periprosthetic hip fracture treated at [facility] 07/23/2019, had a large amount of blood loss intraoperatively, requiring 6 units PRBC -Hgb stable today at 10.8 -Currently at [facility] for rehab and is 50% WBAT to the right leg. PT/OT consulted here to continue working with him. (8) Anemia: Likely related to acute blood loss from multiple surgeries and hospitalizations. PCP to follow as outpatient. No transfusion needed at this time. (9) DVT prophylaxis: SCDs due to invasive procedure and upcoming surgery Full Code Dispo-cont hospitalization DO [facility] Hospital[facility] Admission and Anticipated Discharge Date Admission Date: July 30, 2019 Subjective doing well tolerating PO pain well managed post operatively at bedside Review of Systems Review of Systems: All systems reviewed & are unremarkable except as noted in Subjective Physical Exam Physical Exam: CONSTITUTIONAL: WNWD, vitals as above, generally well- appearing, no jaundice EYES: normal conjunctivae, no scleral icterus ENT: external ear and nose normal, MMM RESPIRATORY: clear to auscultation bilaterally, no crackles, rales or wheezes, normal respiratory effort CARDIOVASCULAR: regular rate and rhythm, S1 and 2 heard without murmurs, gallops or rubs, no JVD, no peripheral edema GASTROINTESTINAL: normal bowel sounds, soft, nontender, nondistended, multiple closed 1 inch incisions on abdomen covered by dressings that are c/d/i MUSCULOSKELETAL: strength 5/5 throughout, head is normocephalic and atraumatic SKIN: warm and dry NEUROLOGIC: CN 2-12 grossly intact, normal cognition, no gross focal deficits. PSYCHIATRIC: alert cooperative and oriented to person, place and time. Results & Data ([facility]) Vital Signs (Past 12 Hours) Vital Signs Temp Pulse Pulse Resp BP BP Pulse Ox 08/01/19 15:23 36.5 C 88 16 162/79 H 100 08/01/19 13:56 88 18 144/72 H 99 08/01/19 12:34 36.8 C 91 H 18 153/70 H 93 08/01/19 11:53 100 H 18 119/77 97 08/01/19 11:11 36.8 C 85 18 129/69 98 08/01/19 10:40 36.8 C 86 16 124/67 96 08/01/19 10:20 36.3 C L 84 14 130/64 95 08/01/19 10:10 87 14 130/67 96 08/01/19 10:00 85 16 143/76 H 95 08/01/19 09:50 88 18 155/73 H 98 08/01/19 09:40 87 20 152/79 H 100 08/01/19 09:32 36.4 C L 89 18 124/85 99 08/01/19 07:08 37.0 C 84 16 164/82 H 99 Laboratory Results Short CBC 08/01/19 Range/Units 05:08 WBC 7.24 (4.8-10.8) K/uL Hgb 8.9 L (14.0-18.0) g/dL Hct 26.9 L (42-52) % Plt Count 298 (130-400) K/uL BMP 08/01/19 05:08 Sodium 139 Potassium 3.9 Chloride 105 Carbon Dioxide 28 BUN 12 Creatinine 0.83 Glucose 169 H Calcium 8.6 Liver Function 08/01/19 Range/Units 05:08 Total Bilirubin 3.6 H (0.2-1) mg/dl AST 57 H (15-37) U/L ALT 166 H (12-78) U/L Alkaline Phosphatase 337 H (45-117) U/L Albumin 2.4 L (3.4-5.0) gm/dl Medications Administered Current Inpatient Medications Acetaminophen (Tylenol) 650 mg PO Q4H PRN PRN Reason: pain/fever Stop: 08/29/19 19:05 Hydrocodone Bitart/Acetaminophen ([place] 5/325) 1 tab PO Q6H PRN PRN Reason: Pain Stop: 08/15/19 10:58 Aspirin (Ecotrin) 325 mg PO QAM [facility] Stop: 09/01/19 08:59 Atorvastatin Calcium (Lipitor) 10 mg PO HS [facility] Stop: 08/31/19 20:59 Calcium Carbonate (Os-Yonis 500) 1,250 mg PO DAILY [facility] Stop: 09/01/19 08:59 Dextrose (Dextrose 50%) 25 - 50 ml IV UD PRN; Protocol PRN Reason: Hypoglycemia Protocol Stop: 08/29/19 16:03 Docusate Sodium (Colace) 100 mg PO BID [facility] Stop: 08/31/19 20:59 Ferrous Sulfate (Feosol) 325 mg PO BIDM [facility] Stop: 08/31/19 16:59 Glucagon (Glucagen) 1 mg SQ UD PRN; Protocol PRN Reason: Hypoglycemia Protocol Stop: 08/29/19 16:03 Glucose (Dex4 Glucose) 4 - 8 tabs PO UD PRN; Protocol PRN Reason: Hypoglycemia Protocol Stop: 08/29/19 16:03 Glucose (Glucose 40%) 15 - 30 gm PO UD PRN; Protocol PRN Reason: Hypoglycemia Protocol Stop: 08/29/19 16:03 Piperacillin Sod/Tazobactam (Sod 3.375 gm/ Dextrose) 115 mls @ 28.75 mls/hr IV Q8H [facility]; Protocol Stop: 08/09/19 20:59 Last Infusion: 08/01/19 15:42 Dose: Infused Documented by: Lactated Ringer's (Lr) 1,000 mls @ 80 mls/hr IV .[id number] [facility] Stop: 08/31/19 10:59 Last Infusion: 08/01/19 14:19 Dose: 80 mls/hr Documented by: Insulin Aspart (Novolog Flexpen) 0 units SC ACHS [facility] Stop: 08/31/19 11:29 Last Admin: 08/01/19 12:26 Dose: 3 units Documented by: Insulin Glargine (Lantus Solostar Pen) 10 units SC BID [facility] Stop: 08/31/19 11:14 Last Admin: 08/01/19 12:24 Dose: 10 units Documented by: Ioversol (Optiray 320 100ml) 95 ml IV ONCE PRN PRN Reason: Interaction Checking Stop: 08/03/19 20:41 Last Admin: 07/30/19 20:43 Dose: 95 ml Documented by: Levothyroxine Sodium (Synthroid) 75 mcg PO DAILYBB [facility] Stop: 08/30/19 06:29 Last Admin: 08/01/19 05:53 Dose: 75 mcg Documented by: Miscellaneous (Carbohydrates For Hypoglycemia) 15 - 30 gm PO UD PRN PRN Reason: Hypoglycemia Protocol Stop: 08/29/19 16:03 Miscellaneous Information (Consult) 1 ea N/A UD PRN PRN Reason: Consult Stop: 08/29/19 20:09 Oxycodone HCl (Roxicodone Immediate Rel) 5 mg PO Q6H PRN PRN Reason: Pain Stop: 08/14/19 17:19 Pantoprazole Sodium (Protonix) 40 mg PO QAM [facility] Stop: 08/30/19 08:59 Last Admin: 08/01/19 11:23 Dose: 40 mg Documented by: (1) Hip fracture requiring operative repair Encounter type: sequela Fracture type: closed Laterality: right Qualified Code(s): S72.001S - Fracture of unspecified part of neck of right femur, sequela (2) Diabetes mellitus, type 2 Diabetes mellitus complication status: without complication Diabetes mellitus watermaster insulin use: without intermediate use Qualified Code(s): E11.9 - Type 2 diabetes mellitus without complications
[2019-08-01] MEDS: FERROUS SULFATE 325 MG TAB PO SCH (19:27)
[2019-08-01] MEDS ORDERED: SODIUM CHLORIDE 0.9% 500 ML IV ONE (19:56)
[2019-08-01] MEDS ORDERED: POTASSIUM CHLORIDE 20 MEQ TABCR PO STA (19:57)
[2019-08-01 20:45] LABS: Hematocrit (blood only) 27.5 % (42-52); Hemoglobin 9.1 g/dL (14.0-18.0)
[2019-08-01 21:00] LABS: Calcium 8.2 mg/dl (8.5-10.1); Creatinine Clr Calc Pharmacy 71.2 ml/min; Est GFR (African American) 90.9; Est GFR (Non-African American) 78.4; Magnesium 1.8 mg/dl (1.8-2.4)
[2019-08-01] MEDS: DOCUSATE SODIUM 100 MG CAP PO SCH (21:05)
[2019-08-01] MEDS: ATORVASTATIN 10 MG TAB PO SCH (21:06)
[2019-08-01 21:11] LABS: Thyroid Stimulating Hormone 2.44 uIu/ml (0.300-4.500)
[2019-08-01] MEDS ORDERED: MAGNESIUM SULFATE / D5W 1 GM/100 ML BAG IV ONE (23:00)
[2019-08-02] MEDS: PIPERACILLIN/TAZOBACTAM 3.375 GM in DEXTROSE 5% 100 ML IV SCH ×3 (01:05→18:25)
[2019-08-02 04:10] LABS: Basophils # (auto) 0.02 K/uL (0-0.2); Basophils % (auto) 0.2 %; Eosinophils # (auto) 0.09 K/uL (0-0.5); Hematocrit (blood only) 29.4 % (42-52); Hemoglobin 9.7 g/dL (14.0-18.0); Immature Granulocytes # (auto) 0.02 K/uL (0.00-0.02); Immature Granulocytes % (auto) 0.2 %; Lymphocytes # (auto) 1.16 K/uL (1.2-3.4); Lymphocytes % (auto) 13.2 %; Mean Corpuscular Hemoglobin 31.9 pg (25-34); Mean Corpuscular Volume 96.7 fL (80-100); Mean Platelet Volume 8.7 fL (7.4-10.4); Monocytes % (auto) 14.8 %; Neutrophils # (auto) 6.19 K/uL (1.4-6.5); Neutrophils % (auto) 70.6 %; Platelet Count 313 K/uL (130-400); RDW Coefficient of Variation 15.8 % (11.5-14.5); RDW Standard Deviation 54.4 fL (36.4-46.3); Red Blood Count 3.04 M/uL (4.7-6.1); White Blood Count 8.78 K/uL (4.8-10.8)
[2019-08-02 04:27] LABS: BUN Creatinine Ratio 11.7 (10-20); Calcium 8.2 mg/dl (8.5-10.1); Creatinine Clr Calc Pharmacy 83.7 ml/min; Est GFR (African American) 100.6; Est GFR (Non-African American) 86.8; Potassium 3.6 mmol/L (3.5-5.1)
[2019-08-02] MEDS ORDERED: LACTATED RINGER'S 1,000 ML IV ONE (05:32)
[2019-08-02] MEDS: LEVOTHYROXINE SODIUM 75 MCG TABLET PO SCH (05:34)
--- NOTE | 2019-08-02 07:36 | Anesthesiology Progress Note ---
Date of Service August 02, 2019 Anesthesia Post Procedure Vital Signs Vital Signs: Temp Pulse Pulse Resp BP BP Pulse Ox 08/02/19 07:17 36.8 C 84 18 168/82 H 97 08/02/19 03:30 37.0 C 81 16 131/75 96 08/01/19 22:49 37.4 C 84 16 143/68 H 99 08/01/19 19:39 36.4 C L 113 H 16 93/54 L 97 08/01/19 15:23 36.5 C 88 16 162/79 H 100 08/01/19 13:56 88 18 144/72 H 99 08/01/19 12:34 36.8 C 91 H 18 153/70 H 93 08/01/19 11:53 100 H 18 119/77 97 08/01/19 11:11 36.8 C 85 18 129/69 98 08/01/19 10:40 36.8 C 86 16 124/67 96 08/01/19 10:20 36.3 C L 84 14 130/64 95 08/01/19 10:10 87 14 130/67 96 08/01/19 10:00 85 16 143/76 H 95 08/01/19 09:50 88 18 155/73 H 98 08/01/19 09:40 87 20 152/79 H 100 08/01/19 09:32 36.4 C L 89 18 124/85 99 Pain Intensity Abdomen: Pain Intensity: 2 Notes Mental Status: alert / awake / arousable and participated in evaluation Patient Amnestic to Procedure: Yes Nausea / Vomiting: adequately controlled Pain: adequately controlled Airway Patency, RR, SpO2: stable & adequate BP & HR: stable & adequate Hydration State: stable & adequate Anesthetic Complications: no major complications apparent and Pt Satisfied with anesthetic care
--- NOTE | 2019-08-02 08:34 | Gastroenterology Progress Note ---
Date of Service August 02, 2019 Assessment & Plan (1) History of ERCP: 78 year old male w/ elevated LFTs and choledocholithiasis s/p ERCP with stone extraction and stent placement, cholecystectomy clinically feeling well - No NSAIDs x 1 week - OP ERCP in 6 weeks w/ Dr. Lisset KING to sign off. Thank you for allowing us to participate in the care of this patient. Please call with any acute changes, questions or concerns. Please see addendum below with additional recommendation from my supervising physician. (2) Choledocholithiasis: Admission and Anticipated Discharge Date Admission Date: July 30, 2019 Supervising Physician Co-Signing Physician Notes Attending attestation I have seen, examined this patient, and agree with the findings and above by our mid-level provider CANDIDA Betancourt, with the following additions: -Doing well, no abdominal discomfort, LFTs are declining, would follow LFTs to normalization, including if discharged once to twice weekly. Repeat ERCP will be arranged please call with questions Subjective Pt seen and evaluated, chart reviewed. Feeling well from GI standpoint Only concern is some burning w/ urination Suggests he had to be straight-cathed yesterday for retention Denies blood in urine. No nausea, vomiting. Review of Systems Constitutional: no fever and no chills Respiratory: no cough and no dyspnea Cardiovascular: no chest pain Gastrointestinal: no abdominal pain, no nausea and no melena Physical Exam Constitutional: well nourished; no acute distress Neck: trachea midline Respiratory: normal respiratory effort Gastrointestinal (Abdomen): Inspection/Auscultation: abdomen not distended Percussion/Palpation: abdomen soft; abdomen nontender Skin: no rashes, warm and dry Results & Data ([facility]) Vital Signs (Past 12 Hours) Vital Signs Temp Pulse Resp BP Pulse Ox 08/02/19 07:17 36.8 C 84 18 168/82 H 97 08/02/19 03:30 37.0 C 81 16 131/75 96 08/01/19 22:49 37.4 C 84 16 143/68 H 99
[2019-08-02] MEDS: INSULIN ASPART 100 UNITS/ML 3 ML PEN SC SCH ×4 (09:26→21:11)
[2019-08-02] MEDS: DOCUSATE SODIUM 100 MG CAP PO SCH ×2 (09:28→21:10)
[2019-08-02] MEDS: FERROUS SULFATE 325 MG TAB PO SCH ×2 (09:29→18:22)
[2019-08-02] MEDS: PANTOprazole 40 MG TAB PO SCH (09:29)
[2019-08-02] MEDS: CALCIUM CARBONATE 1250MG TAB PO SCH (09:29)
[2019-08-02] MEDS: ASPIRIN 325 MG ECTAB PO SCH (09:29)
[2019-08-02] MEDS: INSULIN GLARGINE SOLOSTAR 100 UNITS/ML 3 ML PEN SC SCH ×2 (09:30→21:10)
--- NOTE | 2019-08-02 10:59 | Surgery Progress Note ---
Date of Service August 02, 2019 Assessment & Plan (1) Acute cholecystitis: POD # 1 s/p laparoscopic cholecystectomy - vitals stable, afebrile - no leukocytosis - minimal postop pain Plan: Okay to advance diet to full liquid DM diet and then as tolerated continue po Tylenol and Hydrocodone prn pain as needed PT/OT continue medical management outpatient f/u with GI for stent removal in 6 weeks avoid NSAIDS x [address] Bowen has seen patient, agrees with above Subjective feeling better today some burning with urination is main complaint minimal abdominal discomfort some mild abdominal bloating tolerating clear liquids, no n/v Physical Exam Constitutional: WD/WN, vitals as above no acute distress Respiratory: normal respiratory effort; no respiratory distress Gastrointestinal (Abdomen): Inspection/Auscultation: abdomen normal to inspection; abdomen not distended Percussion/Palpation: abdomen soft; abdomen nontender, no guarding and abdomen not rigid Skin: no rashes, warm and dry + incision (covered with dressings, dry) Psychiatric: A+Ox3, euthymic affect Results & Data Vital Signs (Past 12 Hours) Vital Signs Temp Pulse Resp BP Pulse Ox 08/02/19 07:17 36.8 C 84 18 168/82 H 97 08/02/19 03:30 37.0 C 81 16 131/75 96 Laboratory Results 08/02/19 08/02/19 08/02/19 Range/Units 03:57 03:57 03:57 WBC 8.78 (4.8-10.8) K/uL RBC 3.04 L (4.7-6.1) M/uL Hgb 9.7 L (14.0-18.0) g/dL Hct 29.4 L (42-52) % MCV 96.7 (80-100) fL MCH 31.9 (25-34) pg MCHC 33.0 (32-36) g/dL RDW Std Deviation 54.4 H (36.4-46.3) fL RDW Coeff of Mara 15.8 H (11.5-14.5) % Plt Count 313 (130-400) K/uL MPV 8.7 (7.4-10.4) fL Immature Gran % (Auto) 0.2 % Neut % (Auto) 70.6 % Lymph % (Auto) 13.2 % [place] % (Auto) 14.8 % Eos % (Auto) 1.0 % Baso % (Auto) 0.2 % Immature Gran # (Auto) 0.02 (0.00-0.02) K/uL Neut # (Auto) 6.19 (1.4-6.5) K/uL Lymph # (Auto) 1.16 L (1.2-3.4) K/uL [place] # (Auto) 1.30 H (0.11-0.59) K/uL Eos # (Auto) 0.09 (0-0.5) K/uL Baso # (Auto) 0.02 (0-0.2) K/uL Sodium 134 L (136-145) mmol/L Potassium 3.6 (3.5-5.1) mmol/L Chloride 100 (98-107) mmol/L Carbon Dioxide 29 (21-32) mmol/L Anion Gap 5.0 (3-11) BUN 9 (7-18) mg/dl Creatinine 0.80 (0.6-1.4) mg/dl Est Cr Clr Drug Dosing 83.7 ml/min Est GFR ( Amer) 100.6 Est GFR (Non-Af Amer) 86.8 BUN/Creatinine Ratio 11.7 (10-20) Glucose 119 H (70-99) mg/dl POC Glucose (70-99) mg/dl Lactate 0.7 (0.4-2.0) mmol/L Calcium 8.2 L (8.5-10.1) mg/dl Magnesium (1.8-2.4) mg/dl TSH (0.300-4.500) uIu/ml EBV Capsid Ag IgG Ab U/mL EBV Capsid Ag IgM Ab U/mL EBV Nuclear Antigen Ab U/mL EBV Antibody Interp Blood Type Antibody Screen 08/01/19 08/01/19 08/01/19 Range/Units 22:16 21:12 20:30 WBC (4.8-10.8) K/uL RBC (4.7-6.1) M/uL Hgb 9.1 L (14.0-18.0) g/dL Hct 27.5 L (42-52) % MCV (80-100) fL MCH (25-34) pg MCHC (32-36) g/dL RDW Std Deviation (36.4-46.3) fL RDW Coeff of Mara (11.5-14.5) % Plt Count (130-400) K/uL MPV (7.4-10.4) fL Immature Gran % (Auto) % Neut % (Auto) % Lymph % (Auto) % [place] % (Auto) % Eos % (Auto) % Baso % (Auto) % Immature Gran # (Auto) (0.00-0.02) K/uL Neut # (Auto) (1.4-6.5) K/uL Lymph # (Auto) (1.2-3.4) K/uL [place] # (Auto) (0.11-0.59) K/uL Eos # (Auto) (0-0.5) K/uL Baso # (Auto) (0-0.2) K/uL Sodium (136-145) mmol/L Potassium (3.5-5.1) mmol/L Chloride (98-107) mmol/L Carbon Dioxide (21-32) mmol/L Anion Gap (3-11) BUN (7-18) mg/dl Creatinine (0.6-1.4) mg/dl Est Cr Clr Drug Dosing ml/min Est GFR ( Amer) Est GFR (Non-Af Amer) BUN/Creatinine Ratio (10-20) Glucose (70-99) mg/dl POC Glucose 156 H 198 H (70-99) mg/dl Lactate (0.4-2.0) mmol/L Calcium (8.5-10.1) mg/dl Magnesium (1.8-2.4) mg/dl TSH (0.300-4.500) uIu/ml EBV Capsid Ag IgG Ab U/mL EBV Capsid Ag IgM Ab U/mL EBV Nuclear Antigen Ab U/mL EBV Antibody Interp Blood Type Antibody Screen 08/01/19 08/01/19 08/01/19 Range/Units 20:30 20:30 20:30 WBC (4.8-10.8) K/uL RBC (4.7-6.1) M/uL Hgb (14.0-18.0) g/dL Hct (42-52) % MCV (80-100) fL MCH (25-34) pg MCHC (32-36) g/dL RDW Std Deviation (36.4-46.3) fL RDW Coeff of Mara (11.5-14.5) % Plt Count (130-400) K/uL MPV (7.4-10.4) fL Immature Gran % (Auto) % Neut % (Auto) % Lymph % (Auto) % [place] % (Auto) % Eos % (Auto) % Baso % (Auto) % Immature Gran # (Auto) (0.00-0.02) K/uL Neut # (Auto) (1.4-6.5) K/uL Lymph # (Auto) (1.2-3.4) K/uL [place] # (Auto) (0.11-0.59) K/uL Eos # (Auto) (0-0.5) K/uL Baso # (Auto) (0-0.2) K/uL Sodium 133 L (136-145) mmol/L Potassium 4.0 (3.5-5.1) mmol/L Chloride 99 (98-107) mmol/L Carbon Dioxide 30 (21-32) mmol/L Anion Gap 4.0 (3-11) BUN 12 (7-18) mg/dl Creatinine 0.94 (0.6-1.4) mg/dl Est Cr Clr Drug Dosing 71.2 ml/min Est GFR ( Amer) 90.9 Est GFR (Non-Af Amer) 78.4 BUN/Creatinine Ratio 13.0 (10-20) Glucose 222 H (70-99) mg/dl POC Glucose (70-99) mg/dl Lactate 2.1 H* (0.4-2.0) mmol/L Calcium 8.2 L (8.5-10.1) mg/dl Magnesium 1.8 (1.8-2.4) mg/dl TSH 2.440 (0.300-4.500) uIu/ml EBV Capsid Ag IgG Ab U/mL EBV Capsid Ag IgM Ab U/mL EBV Nuclear Antigen Ab U/mL EBV Antibody Interp Blood Type A Negative Antibody Screen NEGATIVE 08/01/19 08/01/19 07/30/19 Range/Units 17:14 11:06 19:20 WBC (4.8-10.8) K/uL RBC (4.7-6.1) M/uL Hgb (14.0-18.0) g/dL Hct (42-52) % MCV (80-100) fL MCH (25-34) pg MCHC (32-36) g/dL RDW Std Deviation (36.4-46.3) fL RDW Coeff of Mara (11.5-14.5) % Plt Count (130-400) K/uL MPV (7.4-10.4) fL Immature Gran % (Auto) % Neut % (Auto) % Lymph % (Auto) % [place] % (Auto) % Eos % (Auto) % Baso % (Auto) % Immature Gran # (Auto) (0.00-0.02) K/uL Neut # (Auto) (1.4-6.5) K/uL Lymph # (Auto) (1.2-3.4) K/uL [place] # (Auto) (0.11-0.59) K/uL Eos # (Auto) (0-0.5) K/uL Baso # (Auto) (0-0.2) K/uL Sodium (136-145) mmol/L Potassium (3.5-5.1) mmol/L Chloride (98-107) mmol/L Carbon Dioxide (21-32) mmol/L Anion Gap (3-11) BUN (7-18) mg/dl Creatinine (0.6-1.4) mg/dl Est Cr Clr Drug Dosing ml/min Est GFR ( Amer) Est GFR (Non-Af Amer) BUN/Creatinine Ratio (10-20) Glucose (70-99) mg/dl POC Glucose 188 H 158 H (70-99) mg/dl Lactate (0.4-2.0) mmol/L Calcium (8.5-10.1) mg/dl Magnesium (1.8-2.4) mg/dl TSH (0.300-4.500) uIu/ml EBV Capsid Ag IgG Ab 217.00 H U/mL EBV Capsid Ag IgM Ab <36.00 U/mL EBV Nuclear Antigen Ab 348.00 H U/mL EBV Antibody Interp SEE NOTE Blood Type Antibody Screen
[2019-08-02] MEDS: PHENAZOPYRIDINE HCL 200 MG TAB PO PRN (13:54)
[2019-08-02 14:55] LABS: Appearance Urine Clear (Clear); Bilirubin Urine Negative (Negative); Blood Urine Negative (Negative); Color Urine Yellow; Glucose Urine UA Negative (Negative); Ketones Urine Negative (Negative); Leukocyte Esterase Urine Negative (Negative); Nitrite Urine Negative (Negative); Protein Urine Negative (Negative); Specific Gravity Urine 1.004 (1.000-1.030); Urobilinogen Urine Negative (Negative)
--- NOTE | 2019-08-02 16:00 | Hospitalist Progress Note ---
Date of Service August 02, 2019 Assessment & Plan (1) Benign obstructive jaundice: 2/2 choledocholithiasis with sludge. Status post ERCP with sphincterotomy, balloon sweep of bile duct and biliary stent placement on 07/30/2019 Jaundice has resolved. Bili and LFTs decreased. Appreciate GI input and recommendation. (2) Transaminitis: Decreased after ERCP and stent placement. (3) Acute cholecystitis: Equivocal imaging studies, however, patient has no pain or overt infection. Status post laparoscopic cholecystectomy on 08/01/2019 Appreciate surgery input and recommendation Clinically stable and doing better Continuing Zosyn empirically. (4) CAD (coronary artery disease): -stable, no reports of chest pain -Patient currently on full dose aspirin for DVT prophylaxis from recent hip surgery, which is on hold 2/2 recent surgery. -Hold statin due to transaminitis -Not on beta-klever, ABILIO/ARB secondary to bradycardia and hypotension in the past -Follows with [facility] cardiology (5) Diabetes mellitus, type 2: -Hgb A1c 5.5 04/2019 -Hold oral agents and utilize NovoLog per protocol while hospitalized -currently at goal (6) GERD (gastroesophageal reflux disease): -Continue PPI (7) Hip fracture requiring operative repair: -Right periprosthetic hip fracture treated at [facility] 07/23/2019, had a large amount of blood loss intraoperatively, requiring 6 units PRBC -Hgb stable today at 10.8 -Currently at [facility] for rehab and is 50% WBAT to the right leg. -PT/OT consulted here to continue working with him. (8) Anemia: Likely related to acute blood loss from multiple surgeries and hospitalizations. PCP to follow as outpatient. No transfusion needed at this time. (9) DVT prophylaxis: SCDs due to invasive procedure and upcoming surgery Full Code Dispo-cont hospitalization t Admission and Anticipated Discharge Date Admission Date: July 30, 2019 Subjective The patient was seen and examined in medical unit He is status post ERCP with sphincterotomy, balloon sweep of bile duct and biliary stent placement on 07/30/2019 Status post laparoscopic cholecystectomy on 08/01/2019 Has been feeling better as of today Complains only to have dysuria but no fever and/or chills Review of Systems Review of Systems: All systems reviewed and are unremarkable except as noted below Genitourinary: + dysuria Physical Exam Physical Exam: Lying in bed comfortably Constitutional: well developed, well nourished, + acute distress (Due to pain with urination) and + ill appearing Eyes: PERRL, conjunctivae normal, anicteric sclerae ENMT: external ear and nose normal, oropharynx normal Neck: trachea midline, no thyromegaly Respiratory: normal respiratory effort; no respiratory distress Auscultation: lungs clear to auscultation bilaterally Cardiovascular: Rate/Rhythm: regular rate and regular rhythm Heart Sounds: no murmur Gastrointestinal (Abdomen): Inspection/Auscultation: abdomen normal to inspection and normal bowel sounds Percussion/Palpation: + abdomen tender (Mildly tender all over) and abdomen soft Musculoskeletal: No acute arthritis in any joints Neurologic: moves all extremities; no focal motor deficits Lymphatic: no cervical or axillary lymphadenopathy Results & Data ([facility]) Vital Signs (Past 12 Hours) Vital Signs Temp Pulse Resp BP Pulse Ox 08/02/19 07:17 36.8 C 84 18 168/82 H 97 Laboratory Results Short CBC 08/01/19 08/02/19 Range/Units 20:30 03:57 WBC 8.78 (4.8-10.8) K/uL Hgb 9.1 L 9.7 L (14.0-18.0) g/dL Hct 27.5 L 29.4 L (42-52) % Plt Count 313 (130-400) K/uL BMP 08/01/19 08/02/19 20:30 03:57 Sodium 133 L 134 L Potassium 4.0 3.6 Chloride 99 100 Carbon Dioxide 30 29 BUN 12 9 Creatinine 0.94 0.80 Glucose 222 H 119 H Calcium 8.2 L 8.2 L Urine 08/02/19 Range/Units 13:50 Urine Color Yellow Urine Appearance Clear (Clear) Urine pH 7.0 (4.5-7.5) Ur Specific [place] 1.004 (1.000-1.030) Urine Protein Negative (Negative) Urine Glucose (UA) Negative (Negative) Medications Administered Current Inpatient Medications Acetaminophen (Tylenol) 650 mg PO Q4H PRN PRN Reason: pain/fever Stop: 08/29/19 19:05 Hydrocodone Bitart/Acetaminophen ([place] 5/325) 1 tab PO Q6H PRN PRN Reason: Pain Stop: 08/15/19 10:58 Last Admin: 08/02/19 04:38 Dose: 1 tab Documented by: Aspirin (Ecotrin) 325 mg PO QAM [facility] Stop: 09/01/19 08:59 Last Admin: 08/02/19 09:29 Dose: 325 mg Documented by: Atorvastatin Calcium (Lipitor) 10 mg PO HS [facility] Stop: 08/31/19 20:59 Last Admin: 08/01/19 21:06 Dose: 10 mg Documented by: Calcium Carbonate (Os-Yonis 500) 1,250 mg PO DAILY [facility] Stop: 09/01/19 08:59 Last Admin: 08/02/19 09:29 Dose: 1,250 mg Documented by: Dextrose (Dextrose 50%) 25 - 50 ml IV UD PRN; Protocol PRN Reason: Hypoglycemia Protocol Stop: 08/29/19 16:03 Docusate Sodium (Colace) 100 mg PO BID [facility] Stop: 08/31/19 20:59 Last Admin: 08/02/19 09:28 Dose: 100 mg Documented by: Ferrous Sulfate (Feosol) 325 mg PO BIDM [facility] Stop: 08/31/19 16:59 Last Admin: 08/02/19 09:29 Dose: 325 mg Documented by: Glucagon (Glucagen) 1 mg SQ UD PRN; Protocol PRN Reason: Hypoglycemia Protocol Stop: 08/29/19 16:03 Glucose (Dex4 Glucose) 4 - 8 tabs PO UD PRN; Protocol PRN Reason: Hypoglycemia Protocol Stop: 08/29/19 16:03 Glucose (Glucose 40%) 15 - 30 gm PO UD PRN; Protocol PRN Reason: Hypoglycemia Protocol Stop: 08/29/19 16:03 Piperacillin Sod/Tazobactam (Sod 3.375 gm/ Dextrose) 115 mls @ 28.75 mls/hr IV Q8H [facility]; Protocol Stop: 08/09/19 20:59 Last Infusion: 08/02/19 14:45 Dose: Infused Documented by: Lactated Ringer's (Lr) 1,000 mls @ 80 mls/hr IV .[id number] Stop: 08/02/19 18:00 Last Admin: 08/02/19 10:44 Dose: 80 mls/hr Documented by: Insulin Aspart (Novolog Flexpen) 0 units SC ACHS [facility] Stop: 08/31/19 11:29 Last Admin: 08/02/19 12:51 Dose: 6 units Documented by: Insulin Glargine (Lantus Solostar Pen) 10 units SC BID [facility] Stop: 08/31/19 11:14 Last Admin: 08/02/19 09:30 Dose: 10 units Documented by: Ioversol (Optiray 320 100ml) 95 ml IV ONCE PRN PRN Reason: Interaction Checking Stop: 08/03/19 20:41 Last Admin: 07/30/19 20:43 Dose: 95 ml Documented by: Levothyroxine Sodium (Synthroid) 75 mcg PO DAILYBB [facility] Stop: 08/30/19 06:29 Last Admin: 08/02/19 05:34 Dose: 75 mcg Documented by: Miscellaneous (Carbohydrates For Hypoglycemia) 15 - 30 gm PO UD PRN PRN Reason: Hypoglycemia Protocol Stop: 08/29/19 16:03 Miscellaneous Information (Consult) 1 ea N/A UD PRN PRN Reason: Consult Stop: 08/29/19 20:09 Oxycodone HCl (Roxicodone Immediate Rel) 5 mg PO Q6H PRN PRN Reason: Pain Stop: 08/14/19 17:19 Last Admin: 08/02/19 02:43 Dose: 5 mg Documented by: Pantoprazole Sodium (Protonix) 40 mg PO QAM [facility] Stop: 08/30/19 08:59 Last Admin: 08/02/19 09:29 Dose: 40 mg Documented by: Phenazopyridine HCl (Pyridium) 200 mg PO TID PRN PRN Reason: Pain Stop: 09/01/19 12:15 Last Admin: 08/02/19 13:54 Dose: 200 mg Documented by: (1) Diabetes mellitus, type 2 Diabetes mellitus complication status: without complication Diabetes mellitus [employer] insulin use: without [employer] use Qualified Code(s): E11.9 - Type 2 diabetes mellitus without complications (2) Hip fracture requiring operative repair Encounter type: sequela Fracture type: closed Laterality: right Qualified Code(s): S72.001S - Fracture of unspecified part of neck of right femur, sequela
[2019-08-02] MEDS: ATORVASTATIN 10 MG TAB PO SCH (21:11)
[2019-08-03] MEDS: PIPERACILLIN/TAZOBACTAM 3.375 GM in DEXTROSE 5% 100 ML IV SCH ×3 (02:40→18:32)
[2019-08-03] MEDS: PHENAZOPYRIDINE HCL 200 MG TAB PO PRN (02:40)
[2019-08-03] MEDS: LEVOTHYROXINE SODIUM 75 MCG TABLET PO SCH (06:21)
[2019-08-03 06:40] LABS: Basophils # (auto) 0.02 K/uL (0-0.2); Basophils % (auto) 0.3 %; Eosinophils # (auto) 0.25 K/uL (0-0.5); Hematocrit (blood only) 25.9 % (42-52); Hemoglobin 8.3 g/dL (14.0-18.0); Immature Granulocytes # (auto) 0.01 K/uL (0.00-0.02); Immature Granulocytes % (auto) 0.2 %; Lymphocytes # (auto) 1.16 K/uL (1.2-3.4); Lymphocytes % (auto) 18.5 %; Mean Platelet Volume 8.6 fL (7.4-10.4); Monocytes % (auto) 12.8 %; Neutrophils # (auto) 4.03 K/uL (1.4-6.5); Neutrophils % (auto) 64.2 %; Platelet Count 305 K/uL (130-400); RDW Coefficient of Variation 16.1 % (11.5-14.5); RDW Standard Deviation 57.8 fL (36.4-46.3); Red Blood Count 2.59 M/uL (4.7-6.1); White Blood Count 6.27 K/uL (4.8-10.8)
[2019-08-03 07:27] LABS: Albumin Globulin Ratio 0.7 (0.9-2); Albumin Level 2.2 gm/dl (3.4-5.0); BUN Creatinine Ratio 9.9 (10-20); Bilirubin,Total 2.4 mg/dl (0.2-1); Calcium 8.4 mg/dl (8.5-10.1); Creatinine Clr Calc Pharmacy 78.7 ml/min; Est GFR (African American) 98.1; Est GFR (Non-African American) 84.6; Magnesium 2.1 mg/dl (1.8-2.4); Phosphorus 3.9 mg/dl (2.5-4.9); Potassium 3.6 mmol/L (3.5-5.1); Total Protein 5.2 gm/dl (6.4-8.2)
[2019-08-03] MEDS: PANTOprazole 40 MG TAB PO SCH (09:07)
[2019-08-03] MEDS: FERROUS SULFATE 325 MG TAB PO SCH ×2 (09:07→18:32)
[2019-08-03] MEDS: DOCUSATE SODIUM 100 MG CAP PO SCH ×2 (09:07→21:40)
[2019-08-03] MEDS: ASPIRIN 325 MG ECTAB PO SCH (09:07)
[2019-08-03] MEDS: CALCIUM CARBONATE 1250MG TAB PO SCH (09:07)
[2019-08-03] MEDS: INSULIN GLARGINE SOLOSTAR 100 UNITS/ML 3 ML PEN SC SCH (09:10)
[2019-08-03] MEDS: INSULIN ASPART 100 UNITS/ML 3 ML PEN SC SCH ×4 (09:10→21:42)
--- NOTE | 2019-08-03 10:20 | Surgery Progress Note ---
Date of Service August 03, 2019 Assessment & Plan (1) Acute cholecystitis: POD # 2 s/p laparoscopic cholecystectomy, POD #4 ERCP with biliary stent placement - vitals stable, afebrile - no leukocytosis - minimal postop pain - H&H 8.3/25.9 (9.7/29.4 yesterday), asymptomatic likely dilutional Plan: Okay to advance diet to regular DM diet continue po Tylenol and Hydrocodone prn pain as needed PT/OT continue medical management outpatient f/u with GI for stent removal in 6 weeks avoid NSAIDS x 1 week repeat am labs suggested to monitor H&H, t. bili and lfts Okay from surgical standpoint for discharge back to rehab tomorrow Dr. Bowen has seen patient, agrees with above Subjective feeling good today burning on urination better today no nausea or vomiting, tolerated full liquids for breakfast no dizziness no cp, SOB passing flatus had bowel movement yesterday ambulating to bathroom, working with PT, plan to go back to [facility] on discharge Physical Exam Constitutional: WD/WN, vitals as above not ill appearing Respiratory: normal respiratory effort and + respiratory distress; no labored breathing Gastrointestinal (Abdomen): Inspection/Auscultation: abdomen normal to inspection; abdomen not distended Percussion/Palpation: + abdomen tender (mild at incision sites) and abdomen soft; no guarding and abdomen not rigid Skin: no rashes, warm and dry + incision (covered with dry dressings) Psychiatric: A+Ox3, euthymic affect Results & Data Vital Signs (Past 12 Hours) Vital Signs Temp Pulse Resp BP BP Pulse Ox 08/03/19 07:52 36.7 C 77 18 119/68 100 08/02/19 22:55 36.8 C 76 16 126/79 100 Laboratory Results 08/03/19 08/03/19 08/03/19 Range/Units 08:11 06:17 06:17 WBC 6.27 (4.8-10.8) K/uL RBC 2.59 L (4.7-6.1) M/uL Hgb 8.3 L (14.0-18.0) g/dL Hct 25.9 L (42-52) % MCV 100.0 (80-100) fL MCH 32.0 (25-34) pg MCHC 32.0 (32-36) g/dL RDW Std Deviation 57.8 H (36.4-46.3) fL RDW Coeff of Mara 16.1 H (11.5-14.5) % Plt Count 305 (130-400) K/uL MPV 8.6 (7.4-10.4) fL Immature Gran % (Auto) 0.2 % Neut % (Auto) 64.2 % Lymph % (Auto) 18.5 % [place] % (Auto) 12.8 % Eos % (Auto) 4.0 % Baso % (Auto) 0.3 % Immature Gran # (Auto) 0.01 (0.00-0.02) K/uL Neut # (Auto) 4.03 (1.4-6.5) K/uL Lymph # (Auto) 1.16 L (1.2-3.4) K/uL [place] # (Auto) 0.80 H (0.11-0.59) K/uL Eos # (Auto) 0.25 (0-0.5) K/uL Baso # (Auto) 0.02 (0-0.2) K/uL Sodium 142 D (136-145) mmol/L Potassium 3.6 (3.5-5.1) mmol/L Chloride 110 H (98-107) mmol/L Carbon Dioxide 30 (21-32) mmol/L Anion Gap 2.0 L (3-11) BUN 8 (7-18) mg/dl Creatinine 0.85 (0.6-1.4) mg/dl Est Cr Clr Drug Dosing 78.7 ml/min Est GFR ( Amer) 98.1 Est GFR (Non-Af Amer) 84.6 BUN/Creatinine Ratio 9.9 L (10-20) Glucose 66 L (70-99) mg/dl POC Glucose 73 (70-99) mg/dl Calcium 8.4 L (8.5-10.1) mg/dl Phosphorus 3.9 (2.5-4.9) mg/dl Magnesium 2.1 (1.8-2.4) mg/dl Total Bilirubin 2.4 H (0.2-1) mg/dl AST 33 (15-37) U/L ALT 78 (12-78) U/L Alkaline Phosphatase 218 H (45-117) U/L Total Protein 5.2 L (6.4-8.2) gm/dl Albumin 2.2 L (3.4-5.0) gm/dl Globulin 3.0 (2.5-4.0) gm/dl Albumin/Globulin Ratio 0.7 L (0.9-2) Urine Color Urine Appearance (Clear) Urine pH (4.5-7.5) Ur Specific [place] (1.000-1.030) Urine Protein (Negative) Urine Glucose (UA) (Negative) Urine Ketones (Negative) Urine Blood (Negative) Urine Nitrite (Negative) Urine Bilirubin (Negative) Urine Urobilinogen (Negative) Ur Leukocyte Esterase (Negative) 08/02/19 08/02/19 08/02/19 Range/Units 20:42 18:04 13:50 WBC (4.8-10.8) K/uL RBC (4.7-6.1) M/uL Hgb (14.0-18.0) g/dL Hct (42-52) % MCV (80-100) fL MCH (25-34) pg MCHC (32-36) g/dL RDW Std Deviation (36.4-46.3) fL RDW Coeff of Mara (11.5-14.5) % Plt Count (130-400) K/uL MPV (7.4-10.4) fL Immature Gran % (Auto) % Neut % (Auto) % Lymph % (Auto) % [place] % (Auto) % Eos % (Auto) % Baso % (Auto) % Immature Gran # (Auto) (0.00-0.02) K/uL Neut # (Auto) (1.4-6.5) K/uL Lymph # (Auto) (1.2-3.4) K/uL [place] # (Auto) (0.11-0.59) K/uL Eos # (Auto) (0-0.5) K/uL Baso # (Auto) (0-0.2) K/uL Sodium (136-145) mmol/L Potassium (3.5-5.1) mmol/L Chloride (98-107) mmol/L Carbon Dioxide (21-32) mmol/L Anion Gap (3-11) BUN (7-18) mg/dl Creatinine (0.6-1.4) mg/dl Est Cr Clr Drug Dosing ml/min Est GFR ( Amer) Est GFR (Non-Af Amer) BUN/Creatinine Ratio (10-20) Glucose (70-99) mg/dl POC Glucose 128 H 101 H (70-99) mg/dl Calcium (8.5-10.1) mg/dl Phosphorus (2.5-4.9) mg/dl Magnesium (1.8-2.4) mg/dl Total Bilirubin (0.2-1) mg/dl AST (15-37) U/L ALT (12-78) U/L Alkaline Phosphatase (45-117) U/L Total Protein (6.4-8.2) gm/dl Albumin (3.4-5.0) gm/dl Globulin (2.5-4.0) gm/dl Albumin/Globulin Ratio (0.9-2) Urine Color Yellow Urine Appearance Clear (Clear) Urine pH 7.0 (4.5-7.5) Ur Specific [place] 1.004 (1.000-1.030) Urine Protein Negative (Negative) Urine Glucose (UA) Negative (Negative) Urine Ketones Negative (Negative) Urine Blood Negative (Negative) Urine Nitrite Negative (Negative) Urine Bilirubin Negative (Negative) Urine Urobilinogen Negative (Negative) Ur Leukocyte Esterase Negative (Negative) 08/02/19 Range/Units 12:04 WBC (4.8-10.8) K/uL RBC (4.7-6.1) M/uL Hgb (14.0-18.0) g/dL Hct (42-52) % MCV (80-100) fL MCH (25-34) pg MCHC (32-36) g/dL RDW Std Deviation (36.4-46.3) fL RDW Coeff of Mara (11.5-14.5) % Plt Count (130-400) K/uL MPV (7.4-10.4) fL Immature Gran % (Auto) % Neut % (Auto) % Lymph % (Auto) % [place] % (Auto) % Eos % (Auto) % Baso % (Auto) % Immature Gran # (Auto) (0.00-0.02) K/uL Neut # (Auto) (1.4-6.5) K/uL Lymph # (Auto) (1.2-3.4) K/uL [place] # (Auto) (0.11-0.59) K/uL Eos # (Auto) (0-0.5) K/uL Baso # (Auto) (0-0.2) K/uL Sodium (136-145) mmol/L Potassium (3.5-5.1) mmol/L Chloride (98-107) mmol/L Carbon Dioxide (21-32) mmol/L Anion Gap (3-11) BUN (7-18) mg/dl Creatinine (0.6-1.4) mg/dl Est Cr Clr Drug Dosing ml/min Est GFR ( Amer) Est GFR (Non-Af Amer) BUN/Creatinine Ratio (10-20) Glucose (70-99) mg/dl POC Glucose 121 H (70-99) mg/dl Calcium (8.5-10.1) mg/dl Phosphorus (2.5-4.9) mg/dl Magnesium (1.8-2.4) mg/dl Total Bilirubin (0.2-1) mg/dl AST (15-37) U/L ALT (12-78) U/L Alkaline Phosphatase (45-117) U/L Total Protein (6.4-8.2) gm/dl Albumin (3.4-5.0) gm/dl Globulin (2.5-4.0) gm/dl Albumin/Globulin Ratio (0.9-2) Urine Color Urine Appearance (Clear) Urine pH (4.5-7.5) Ur Specific [place] (1.000-1.030) Urine Protein (Negative) Urine Glucose (UA) (Negative) Urine Ketones (Negative) Urine Blood (Negative) Urine Nitrite (Negative) Urine Bilirubin (Negative) Urine Urobilinogen (Negative) Ur Leukocyte Esterase (Negative)
[2019-08-03 12:29] LABS: CMV IgG Antibody >10.00 U/mL; CMV IgM Antibody <30.00 AU/mL; Hepatitis A Antibody IgM NON-REACTIVE (NON-REACTIVE); Hepatitis B Core Antibody IgM NON-REACTIVE (NON-REACTIVE)
--- NOTE | 2019-08-03 13:58 | Hospitalist Progress Note ---
Date of Service August 03, 2019 Assessment & Plan (1) Benign obstructive jaundice: 2/2 choledocholithiasis with sludge. Status post ERCP with sphincterotomy, balloon sweep of bile duct and biliary stent placement on 07/30/2019 Jaundice has resolved. Bili and LFTs decreased. Appreciate GI input and recommendation. (2) Transaminitis: Decreased after ERCP and stent placement. Transaminitis are normalized but bilirubin remains high at 2.4 (3) Acute cholecystitis: Equivocal imaging studies, however, patient has no pain or overt infection. Status post laparoscopic cholecystectomy on 08/01/2019 Appreciate surgery input and recommendation Clinically stable and doing better Continuing Zosyn empirically. Remains stable and will advance to regular diet Likely discharge tomorrow to rehab (4) CAD (coronary artery disease): -stable, no reports of chest pain -Patient currently on full dose aspirin for DVT prophylaxis from recent hip surgery, which is on hold 2/2 recent surgery. -Hold statin due to transaminitis -Not on beta-klever, ABILIO/ARB secondary to bradycardia and hypotension in the past -Follows with [facility] cardiology (5) Diabetes mellitus, type 2: -Hgb A1c 5.5 04/2019 -Hold oral agents and utilize NovoLog per protocol while hospitalized -currently at goal (6) GERD (gastroesophageal reflux disease): -Continue PPI (7) Hip fracture requiring operative repair: -Right periprosthetic hip fracture treated at [facility] 07/23/2019, had a large amount of blood loss intraoperatively, requiring 6 units PRBC -Hgb stable today at 10.8 -Currently at [facility] for rehab and is 50% WBAT to the right leg. -PT/OT consulted here to continue working with him. (8) Anemia: Likely related to acute blood loss from multiple surgeries and hospitalizations. PCP to follow as outpatient. No transfusion needed at this time. (9) DVT prophylaxis: SCDs due to invasive procedure and upcoming surgery Full Code Dispo-discharge to rehab tomorrow t Admission and Anticipated Discharge Date Admission Date: July 30, 2019 Anticipated date of discharge: 08/04/19 Subjective The patient was seen and examined in medical unit He is status post ERCP with sphincterotomy, balloon sweep of bile duct and biliary stent placement on 07/30/2019 Status post laparoscopic cholecystectomy on 08/01/2019 Has been feeling better as of today Complains only to have dysuria but no fever and/or chills The patient was seen and examined in medical floor in presence of the He has been feeling a lot better Tolerated diet so far Has been getting physical therapy and ready to go to rehab Denies any significant symptoms Review of Systems Review of Systems: All systems reviewed and are unremarkable except as noted below Gastrointestinal: no abdominal pain, no nausea and no vomiting Genitourinary: no dysuria Physical Exam Physical Exam: Sitting on a chair without any distress Constitutional: well developed, well nourished, + acute distress (Due to pain with urination) and + ill appearing Eyes: PERRL, conjunctivae normal, anicteric sclerae ENMT: external ear and nose normal, oropharynx normal Neck: trachea midline, no thyromegaly Respiratory: normal respiratory effort; no respiratory distress Auscultation: lungs clear to auscultation bilaterally Cardiovascular: Rate/Rhythm: regular rate and regular rhythm Heart Sounds: no murmur Gastrointestinal (Abdomen): Inspection/Auscultation: abdomen normal to inspection and normal bowel sounds Percussion/Palpation: + abdomen tender (Minimally tender on palpation) and abdomen soft Neurologic: moves all extremities; no focal motor deficits Lymphatic: no cervical or axillary lymphadenopathy Results & Data ([facility]) Vital Signs (Past 12 Hours) Vital Signs Temp Pulse Resp BP Pulse Ox 08/03/19 07:52 36.7 C 77 18 119/68 100 Laboratory Results Short CBC 08/03/19 Range/Units 06:17 WBC 6.27 (4.8-10.8) K/uL Hgb 8.3 L (14.0-18.0) g/dL Hct 25.9 L (42-52) % Plt Count 305 (130-400) K/uL BMP 08/03/19 06:17 Sodium 142 D Potassium 3.6 Chloride 110 H Carbon Dioxide 30 BUN 8 Creatinine 0.85 Glucose 66 L Calcium 8.4 L Liver Function 08/03/19 Range/Units 06:17 Total Bilirubin 2.4 H (0.2-1) mg/dl AST 33 (15-37) U/L ALT 78 (12-78) U/L Alkaline Phosphatase 218 H (45-117) U/L Albumin 2.2 L (3.4-5.0) gm/dl Urine 08/02/19 Range/Units 13:50 Urine Color Yellow Urine Appearance Clear (Clear) Urine pH 7.0 (4.5-7.5) Ur Specific [place] 1.004 (1.000-1.030) Urine Protein Negative (Negative) Urine Glucose (UA) Negative (Negative) Medications Administered Current Inpatient Medications Acetaminophen (Tylenol) 650 mg PO Q4H PRN PRN Reason: pain/fever Stop: 08/29/19 19:05 Hydrocodone Bitart/Acetaminophen ([place] 5/325) 1 tab PO Q6H PRN PRN Reason: Pain Stop: 08/15/19 10:58 Last Admin: 08/02/19 04:38 Dose: 1 tab Documented by: Aspirin (Ecotrin) 325 mg PO QAM [facility] Stop: 09/01/19 08:59 Last Admin: 08/03/19 09:07 Dose: 325 mg Documented by: Atorvastatin Calcium (Lipitor) 10 mg PO HS [facility] Stop: 08/31/19 20:59 Last Admin: 08/02/19 21:11 Dose: 10 mg Documented by: Calcium Carbonate (Os-Yonis 500) 1,250 mg PO DAILY [facility] Stop: 09/01/19 08:59 Last Admin: 08/03/19 09:07 Dose: 1,250 mg Documented by: Dextrose (Dextrose 50%) 25 - 50 ml IV UD PRN; Protocol PRN Reason: Hypoglycemia Protocol Stop: 08/29/19 16:03 Docusate Sodium (Colace) 100 mg PO BID [facility] Stop: 08/31/19 20:59 Last Admin: 08/03/19 09:07 Dose: 100 mg Documented by: Ferrous Sulfate (Feosol) 325 mg PO BIDM [facility] Stop: 08/31/19 16:59 Last Admin: 08/03/19 09:07 Dose: 325 mg Documented by: Glucagon (Glucagen) 1 mg SQ UD PRN; Protocol PRN Reason: Hypoglycemia Protocol Stop: 08/29/19 16:03 Glucose (Dex4 Glucose) 4 - 8 tabs PO UD PRN; Protocol PRN Reason: Hypoglycemia Protocol Stop: 08/29/19 16:03 Glucose (Glucose 40%) 15 - 30 gm PO UD PRN; Protocol PRN Reason: Hypoglycemia Protocol Stop: 08/29/19 16:03 Piperacillin Sod/Tazobactam (Sod 3.375 gm/ Dextrose) 115 mls @ 28.75 mls/hr IV Q8H [facility]; Protocol Stop: 08/09/19 20:59 Last Infusion: 08/03/19 12:33 Dose: Infused Documented by: Insulin Aspart (Novolog Flexpen) 0 units SC ACHS [facility] Stop: 08/31/19 11:29 Last Admin: 08/03/19 12:44 Dose: 4 units Documented by: Insulin Glargine (Lantus Solostar Pen) 7 units SQ BID [facility] Stop: 09/02/19 20:59 Ioversol (Optiray 320 100ml) 95 ml IV ONCE PRN PRN Reason: Interaction Checking Stop: 08/03/19 20:41 Last Admin: 07/30/19 20:43 Dose: 95 ml Documented by: Levothyroxine Sodium (Synthroid) 75 mcg PO DAILYBB [facility] Stop: 08/30/19 06:29 Last Admin: 08/03/19 06:21 Dose: 75 mcg Documented by: Miscellaneous (Carbohydrates For Hypoglycemia) 15 - 30 gm PO UD PRN PRN Reason: Hypoglycemia Protocol Stop: 08/29/19 16:03 Miscellaneous Information (Consult) 1 ea N/A UD PRN PRN Reason: Consult Stop: 08/29/19 20:09 Oxycodone HCl (Roxicodone Immediate Rel) 5 mg PO Q6H PRN PRN Reason: Pain Stop: 08/14/19 17:19 Last Admin: 08/02/19 02:43 Dose: 5 mg Documented by: Pantoprazole Sodium (Protonix) 40 mg PO QAM [facility] Stop: 08/30/19 08:59 Last Admin: 08/03/19 09:07 Dose: 40 mg Documented by: Phenazopyridine HCl (Pyridium) 200 mg PO TID PRN PRN Reason: Pain Stop: 09/01/19 12:15 Last Admin: 08/03/19 02:40 Dose: 200 mg Documented by: (1) Diabetes mellitus, type 2 Diabetes mellitus complication status: without complication Diabetes mellitus superintendent terminal insulin use: without superintendent terminal use Qualified Code(s): E11.9 - Type 2 diabetes mellitus without complications (2) Hip fracture requiring operative repair Encounter type: sequela Fracture type: closed Laterality: right Qualified Code(s): S72.001S - Fracture of unspecified part of neck of right femur, sequela
[2019-08-03] MEDS: ATORVASTATIN 10 MG TAB PO SCH (21:40)
[2019-08-03] MEDS: INSULIN GLARGINE SOLOSTAR 100 UNITS/ML 3 ML PEN SQ SCH (21:42)
[2019-08-04] MEDS: PIPERACILLIN/TAZOBACTAM 3.375 GM in DEXTROSE 5% 100 ML IV SCH ×2 (02:31→09:21)
[2019-08-04] MEDS: LEVOTHYROXINE SODIUM 75 MCG TABLET PO SCH (06:09)
[2019-08-04 06:15] LABS: Basophils # (auto) 0.03 K/uL (0-0.2); Basophils % (auto) 0.5 %; Eosinophils # (auto) 0.29 K/uL (0-0.5); Eosinophils % (auto) 4.4 %; Hematocrit (blood only) 27.7 % (42-52); Immature Granulocytes # (auto) 0.02 K/uL (0.00-0.02); Immature Granulocytes % (auto) 0.3 %; Lymphocytes % (auto) 21.3 %; Mean Corpuscular Hemoglobin 32.1 pg (25-34); Mean Corpuscular Hgb Conc 32.5 g/dL (32-36); Mean Corpuscular Volume 98.9 fL (80-100); Mean Platelet Volume 8.8 fL (7.4-10.4); Monocytes # (auto) 0.87 K/uL (0.11-0.59); Monocytes % (auto) 13.3 %; Neutrophils # (auto) 3.95 K/uL (1.4-6.5); Neutrophils % (auto) 60.2 %; Platelet Count 335 K/uL (130-400); RDW Standard Deviation 57.2 fL (36.4-46.3); White Blood Count 6.56 K/uL (4.8-10.8)
[2019-08-04 06:51] LABS: Albumin Level 2.3 gm/dl (3.4-5.0); BUN Creatinine Ratio 9.6 (10-20); Calcium 8.4 mg/dl (8.5-10.1); Est GFR (African American) 76.9; Est GFR (Non-African American) 66.3; Potassium 3.9 mmol/L (3.5-5.1)
[2019-08-04 06:53] LABS: Albumin Globulin Ratio 0.7 (0.9-2); Bilirubin,Total 2.1 mg/dl (0.2-1); Globulin 3.1 gm/dl (2.5-4.0); Total Protein 5.4 gm/dl (6.4-8.2)
[2019-08-04] MEDS: FERROUS SULFATE 325 MG TAB PO SCH (09:02)
[2019-08-04] MEDS: DOCUSATE SODIUM 100 MG CAP PO SCH (09:02)
[2019-08-04] MEDS: INSULIN ASPART 100 UNITS/ML 3 ML PEN SC SCH ×3 (09:03→16:40)
[2019-08-04] MEDS: CALCIUM CARBONATE 1250MG TAB PO SCH (09:03)
[2019-08-04] MEDS: ASPIRIN 325 MG ECTAB PO SCH (09:03)
[2019-08-04] MEDS: INSULIN GLARGINE SOLOSTAR 100 UNITS/ML 3 ML PEN SQ SCH (09:03)
[2019-08-04] MEDS: PANTOprazole 40 MG TAB PO SCH (09:03)
--- NOTE | 2019-08-04 10:33 | Surgery Progress Note ---
Date of Service August 04, 2019 Assessment & Plan (1) Acute cholecystitis: POD # 3 s/p laparoscopic cholecystectomy, POD #5 ERCP with biliary stent placement - vitals stable, afebrile - no leukocytosis - minimal postop pain - H&H 9.0/27.7, improved , asymptomatic likely dilutional - t. bili and lfts continue to improve slowly Plan: Okay from surgical standpoint for [facility] for continued rehab recommend Tylenol as needed for pain avoid NSAIDs due to stent placement Will need outpatient f/u with GI and repeat labs likely given elevated bili f/u surgical office in 2 weeks (likely phone call given coronavirus restriction on outpatient visits). Surgical office number will be provided in discharge instructions. Advised patient to call with any questions or concerns. Dr. Bowen has seen patient, agrees with above Subjective feeling well tolerated regular diet for breakfast passing flatus abdominal pain minimal no chest pain, sob, dizziness working with PT hopeful discharge today Physical Exam Constitutional: WD/WN, vitals as above no acute distress Respiratory: normal respiratory effort; no respiratory distress Gastrointestinal (Abdomen): Inspection/Auscultation: abdomen normal to inspection; abdomen not distended Percussion/Palpation: abdomen soft; abdomen nontender, no guarding and abdomen not rigid Skin: no rashes, warm and dry + incision (covered with dry dressings) Psychiatric: A+Ox3, euthymic affect Results & Data Vital Signs (Past 12 Hours) Vital Signs Temp Pulse Resp BP Pulse Ox 08/04/19 06:50 37.2 C 79 16 137/76 99 08/03/19 23:05 36.8 C 79 18 124/74 97 Laboratory Results 08/04/19 08/04/19 08/04/19 Range/Units 07:53 05:49 05:49 WBC 6.56 (4.8-10.8) K/uL RBC 2.80 L (4.7-6.1) M/uL Hgb 9.0 L (14.0-18.0) g/dL Hct 27.7 L (42-52) % MCV 98.9 (80-100) fL MCH 32.1 (25-34) pg MCHC 32.5 (32-36) g/dL RDW Std Deviation 57.2 H (36.4-46.3) fL RDW Coeff of Mara 16.0 H (11.5-14.5) % Plt Count 335 (130-400) K/uL MPV 8.8 (7.4-10.4) fL Immature Gran % (Auto) 0.3 % Neut % (Auto) 60.2 % Lymph % (Auto) 21.3 % Walsh % (Auto) 13.3 % Eos % (Auto) 4.4 % Baso % (Auto) 0.5 % Immature Gran # (Auto) 0.02 (0.00-0.02) K/uL Neut # (Auto) 3.95 (1.4-6.5) K/uL Lymph # (Auto) 1.40 (1.2-3.4) K/uL Walsh # (Auto) 0.87 H (0.11-0.59) K/uL Eos # (Auto) 0.29 (0-0.5) K/uL Baso # (Auto) 0.03 (0-0.2) K/uL Sodium 142 (136-145) mmol/L Potassium 3.9 (3.5-5.1) mmol/L Chloride 109 H (98-107) mmol/L Carbon Dioxide 29 (21-32) mmol/L Anion Gap 4.0 (3-11) BUN 10 (7-18) mg/dl Creatinine 1.08 (0.6-1.4) mg/dl Est Cr Clr Drug Dosing 62.0 ml/min Est GFR ( Amer) 76.9 Est GFR (Non-Af Amer) 66.3 BUN/Creatinine Ratio 9.6 L (10-20) Glucose 113 H (70-99) mg/dl POC Glucose 138 H (70-99) mg/dl Calcium 8.4 L (8.5-10.1) mg/dl Total Bilirubin 2.1 H (0.2-1) mg/dl AST 24 (15-37) U/L ALT 63 (12-78) U/L Alkaline Phosphatase 198 H (45-117) U/L Total Protein 5.4 L (6.4-8.2) gm/dl Albumin 2.3 L (3.4-5.0) gm/dl Globulin 3.1 (2.5-4.0) gm/dl Albumin/Globulin Ratio 0.7 L (0.9-2) CMV IgM Ab AU/mL CMV IgG Ab/TORCH U/mL Hepatitis A IgM Ab (NON-REACTIVE) Hep B Core IgM Ab (NON-REACTIVE) 08/03/19 08/03/19 08/03/19 Range/Units 20:56 18:38 12:28 WBC (4.8-10.8) K/uL RBC (4.7-6.1) M/uL Hgb (14.0-18.0) g/dL Hct (42-52) % MCV (80-100) fL MCH (25-34) pg MCHC (32-36) g/dL RDW Std Deviation (36.4-46.3) fL RDW Coeff of Mara (11.5-14.5) % Plt Count (130-400) K/uL MPV (7.4-10.4) fL Immature Gran % (Auto) % Neut % (Auto) % Lymph % (Auto) % Walsh % (Auto) % Eos % (Auto) % Baso % (Auto) % Immature Gran # (Auto) (0.00-0.02) K/uL Neut # (Auto) (1.4-6.5) K/uL Lymph # (Auto) (1.2-3.4) K/uL Walsh # (Auto) (0.11-0.59) K/uL Eos # (Auto) (0-0.5) K/uL Baso # (Auto) (0-0.2) K/uL Sodium (136-145) mmol/L Potassium (3.5-5.1) mmol/L Chloride (98-107) mmol/L Carbon Dioxide (21-32) mmol/L Anion Gap (3-11) BUN (7-18) mg/dl Creatinine (0.6-1.4) mg/dl Est Cr Clr Drug Dosing ml/min Est GFR ( Amer) Est GFR (Non-Af Amer) BUN/Creatinine Ratio (10-20) Glucose (70-99) mg/dl POC Glucose 125 H 144 H 169 H (70-99) mg/dl Calcium (8.5-10.1) mg/dl Total Bilirubin (0.2-1) mg/dl AST (15-37) U/L ALT (12-78) U/L Alkaline Phosphatase (45-117) U/L Total Protein (6.4-8.2) gm/dl Albumin (3.4-5.0) gm/dl Globulin (2.5-4.0) gm/dl Albumin/Globulin Ratio (0.9-2) CMV IgM Ab AU/mL CMV IgG Ab/TORCH U/mL Hepatitis A IgM Ab (NON-REACTIVE) Hep B Core IgM Ab (NON-REACTIVE) 07/30/19 Range/Units 19:20 WBC (4.8-10.8) K/uL RBC (4.7-6.1) M/uL Hgb (14.0-18.0) g/dL Hct (42-52) % MCV (80-100) fL MCH (25-34) pg MCHC (32-36) g/dL RDW Std Deviation (36.4-46.3) fL RDW Coeff of Mara (11.5-14.5) % Plt Count (130-400) K/uL MPV (7.4-10.4) fL Immature Gran % (Auto) % Neut % (Auto) % Lymph % (Auto) % Walsh % (Auto) % Eos % (Auto) % Baso % (Auto) % Immature Gran # (Auto) (0.00-0.02) K/uL Neut # (Auto) (1.4-6.5) K/uL Lymph # (Auto) (1.2-3.4) K/uL Walsh # (Auto) (0.11-0.59) K/uL Eos # (Auto) (0-0.5) K/uL Baso # (Auto) (0-0.2) K/uL Sodium (136-145) mmol/L Potassium (3.5-5.1) mmol/L Chloride (98-107) mmol/L Carbon Dioxide (21-32) mmol/L Anion Gap (3-11) BUN (7-18) mg/dl Creatinine (0.6-1.4) mg/dl Est Cr Clr Drug Dosing ml/min Est GFR ( Amer) Est GFR (Non-Af Amer) BUN/Creatinine Ratio (10-20) Glucose (70-99) mg/dl POC Glucose (70-99) mg/dl Calcium (8.5-10.1) mg/dl Total Bilirubin (0.2-1) mg/dl AST (15-37) U/L ALT (12-78) U/L Alkaline Phosphatase (45-117) U/L Total Protein (6.4-8.2) gm/dl Albumin (3.4-5.0) gm/dl Globulin (2.5-4.0) gm/dl Albumin/Globulin Ratio (0.9-2) CMV IgM Ab <30.00 AU/mL CMV IgG Ab/TORCH >10.00 H U/mL Hepatitis A IgM Ab NON-REACTIVE (NON-REACTIVE) Hep B Core IgM Ab NON-REACTIVE (NON-REACTIVE)
--- NOTE | 2019-08-04 12:13 | Hospitalist Progress Note ---
Date of Service August 04, 2019 Assessment & Plan (1) Benign obstructive jaundice: 2/2 choledocholithiasis with sludge. Status post ERCP with sphincterotomy, balloon sweep of bile duct and biliary stent placement on 07/30/2019 Jaundice has resolved. Bili and LFTs decreased. Appreciate GI input and recommendation. We will have outpatient ERCP in 6 weeks (2) Transaminitis: Decreased after ERCP and stent placement. Transaminitis are normalized but bilirubin remains high at 2.4 (3) Acute cholecystitis: Equivocal imaging studies, however, patient has no pain or overt infection. Status post laparoscopic cholecystectomy on 08/01/2019 Appreciate surgery input and recommendation Clinically stable and doing better Continuing Zosyn empirically. Remains stable and will advance to regular diet Likely discharge tomorrow to rehab Has been tolerating regular diet and doing well with it Discussed with surgery and the patient discharged today (4) CAD (coronary artery disease): -stable, no reports of chest pain -Patient currently on full dose aspirin for DVT prophylaxis from recent hip surgery, which is on hold 2/2 recent surgery. -Hold statin due to transaminitis -Not on beta-klever, ABILIO/ARB secondary to bradycardia and hypotension in the past -Follows with [facility] cardiology (5) Diabetes mellitus, type 2: -Hgb A1c 5.5 04/2019 -Hold oral agents and utilize NovoLog per protocol while hospitalized -currently at goal (6) GERD (gastroesophageal reflux disease): -Continue PPI (7) Hip fracture requiring operative repair: -Right periprosthetic hip fracture treated at [facility] 07/23/2019, had a large amount of blood loss intraoperatively, requiring 6 units PRBC -Hgb stable today at 10.8 -Currently at [facility] for rehab and is 50% WBAT to the right leg. -PT/OT consulted here to continue working with him. (8) Anemia: Likely related to acute blood loss from multiple surgeries and hospitalizations. PCP to follow as outpatient. No transfusion needed at this time. (9) DVT prophylaxis: SCDs due to invasive procedure and upcoming surgery Full Code Dispo-discharge to rehab tomorrow Discharge to [facility] today Admission and Anticipated Discharge Date Admission Date: July 30, 2019 Anticipated date of discharge: 08/04/19 Subjective The patient was seen and examined in medical unit He is status post ERCP with sphincterotomy, balloon sweep of bile duct and biliary stent placement on 07/30/2019 Status post laparoscopic cholecystectomy on 08/01/2019 Has been feeling better as of today Complains only to have dysuria but no fever and/or chills The patient was seen and examined in medical floor in presence of the He has been feeling a lot better Tolerated diet so far Has been getting physical therapy and ready to go to rehab Denies any significant symptoms 08/04/2019 Patient is seen and examined in medical floor He has been tolerating regular diet and doing very well with physical therapy Denies any significant symptoms today Review of Systems Review of Systems: All systems reviewed and are unremarkable except as noted below Gastrointestinal: Minimal abdominal discomfort on palpation Physical Exam Physical Exam: Sitting on a chair without any distress Constitutional: well developed, well nourished, + acute distress (Due to pain with urination) and + ill appearing Eyes: PERRL, conjunctivae normal, anicteric sclerae ENMT: external ear and nose normal, oropharynx normal Neck: trachea midline, no thyromegaly Respiratory: normal respiratory effort; no respiratory distress Auscultation: lungs clear to auscultation bilaterally Cardiovascular: Rate/Rhythm: regular rate and regular rhythm Heart Sounds: no murmur Gastrointestinal (Abdomen): Inspection/Auscultation: abdomen normal to inspection and normal bowel sounds Percussion/Palpation: + abdomen tender (Minimally tender on palpation) and abdomen soft Neurologic: moves all extremities; no focal motor deficits Lymphatic: no cervical or axillary lymphadenopathy Results & Data ([facility]) Vital Signs (Past 12 Hours) Vital Signs Temp Pulse Resp BP Pulse Ox 08/04/19 06:50 37.2 C 79 16 137/76 99 Laboratory Results Short CBC 08/04/19 Range/Units 05:49 WBC 6.56 (4.8-10.8) K/uL Hgb 9.0 L (14.0-18.0) g/dL Hct 27.7 L (42-52) % Plt Count 335 (130-400) K/uL BMP 08/04/19 05:49 Sodium 142 Potassium 3.9 Chloride 109 H Carbon Dioxide 29 BUN 10 Creatinine 1.08 Glucose 113 H Calcium 8.4 L Liver Function 08/04/19 Range/Units 05:49 Total Bilirubin 2.1 H (0.2-1) mg/dl AST 24 (15-37) U/L ALT 63 (12-78) U/L Alkaline Phosphatase 198 H (45-117) U/L Albumin 2.3 L (3.4-5.0) gm/dl Medications Administered Current Inpatient Medications Acetaminophen (Tylenol) 650 mg PO Q4H PRN PRN Reason: pain/fever Stop: 08/29/19 19:05 Hydrocodone Bitart/Acetaminophen ([place] 5/325) 1 tab PO Q6H PRN PRN Reason: Pain Stop: 08/15/19 10:58 Last Admin: 08/02/19 04:38 Dose: 1 tab Documented by: Aspirin (Ecotrin) 325 mg PO QAM [facility] Stop: 09/01/19 08:59 Last Admin: 08/04/19 09:03 Dose: 325 mg Documented by: Atorvastatin Calcium (Lipitor) 10 mg PO HS [facility] Stop: 08/31/19 20:59 Last Admin: 08/03/19 21:40 Dose: 10 mg Documented by: Calcium Carbonate (Os-Yonis 500) 1,250 mg PO DAILY [facility] Stop: 09/01/19 08:59 Last Admin: 08/04/19 09:03 Dose: 1,250 mg Documented by: Dextrose (Dextrose 50%) 25 - 50 ml IV UD PRN; Protocol PRN Reason: Hypoglycemia Protocol Stop: 08/29/19 16:03 Docusate Sodium (Colace) 100 mg PO BID [facility] Stop: 08/31/19 20:59 Last Admin: 08/04/19 09:02 Dose: 100 mg Documented by: Ferrous Sulfate (Feosol) 325 mg PO BIDM [facility] Stop: 08/31/19 16:59 Last Admin: 08/04/19 09:02 Dose: 325 mg Documented by: Glucagon (Glucagen) 1 mg SQ UD PRN; Protocol PRN Reason: Hypoglycemia Protocol Stop: 08/29/19 16:03 Glucose (Dex4 Glucose) 4 - 8 tabs PO UD PRN; Protocol PRN Reason: Hypoglycemia Protocol Stop: 08/29/19 16:03 Glucose (Glucose 40%) 15 - 30 gm PO UD PRN; Protocol PRN Reason: Hypoglycemia Protocol Stop: 08/29/19 16:03 Piperacillin Sod/Tazobactam (Sod 3.375 gm/ Dextrose) 115 mls @ 28.75 mls/hr IV Q8H [facility]; Protocol Stop: 08/09/19 20:59 Last Admin: 03/18/20 09:21 Dose: 28.8 mls/hr Documented by: Insulin Aspart (Novolog Flexpen) 0 units SC ACHS [facility] Stop: 08/31/19 11:29 Last Admin: 08/04/19 09:03 Dose: 5 units Documented by: Insulin Glargine (Lantus Solostar Pen) 7 units SQ BID [facility] Stop: 09/02/19 20:59 Last Admin: 08/04/19 09:03 Dose: 7 units Documented by: Levothyroxine Sodium (Synthroid) 75 mcg PO DAILYBB [facility] Stop: 08/30/19 06:29 Last Admin: 08/04/19 06:09 Dose: 75 mcg Documented by: Miscellaneous (Carbohydrates For Hypoglycemia) 15 - 30 gm PO UD PRN PRN Reason: Hypoglycemia Protocol Stop: 08/29/19 16:03 Miscellaneous Information (Consult) 1 ea N/A UD PRN PRN Reason: Consult Stop: 08/29/19 20:09 Oxycodone HCl (Roxicodone Immediate Rel) 5 mg PO Q6H PRN PRN Reason: Pain Stop: 08/14/19 17:19 Last Admin: 08/02/19 02:43 Dose: 5 mg Documented by: Pantoprazole Sodium (Protonix) 40 mg PO QAM [facility] Stop: 08/30/19 08:59 Last Admin: 08/04/19 09:03 Dose: 40 mg Documented by: Phenazopyridine HCl (Pyridium) 200 mg PO TID PRN PRN Reason: Pain Stop: 09/01/19 12:15 Last Admin: 08/03/19 02:40 Dose: 200 mg Documented by: (1) Diabetes mellitus, type 2 Diabetes mellitus complication status: without complication Diabetes mellitus custodial insulin use: without intermediate designer use Qualified Code(s): E11.9 - Type 2 diabetes mellitus without complications (2) Hip fracture requiring operative repair Encounter type: sequela Fracture type: closed Laterality: right Qualified Code(s): S72.001S - Fracture of unspecified part of neck of right femur, sequela
--- NOTE | 2019-08-04 15:35 | Hospitalist Progress Note ---
Date of Service August 04, 2019 Assessment & Plan (1) Benign obstructive jaundice: 2/2 choledocholithiasis with sludge. Status post ERCP with sphincterotomy, balloon sweep of bile duct and biliary stent placement on 07/30/2019 Jaundice has resolved. Bili and LFTs decreased. Appreciate GI input and recommendation. We will have outpatient ERCP in 6 weeks (2) Transaminitis: Decreased after ERCP and stent placement. Transaminitis are normalized but bilirubin remains high at 2.4 (3) Acute cholecystitis: Equivocal imaging studies, however, patient has no pain or overt infection. Status post laparoscopic cholecystectomy on 08/01/2019 Appreciate surgery input and recommendation Clinically stable and doing better Continuing Zosyn empirically. Remains stable and will advance to regular diet Likely discharge tomorrow to rehab Has been tolerating regular diet and doing well with it Discussed with surgery and the patient discharged today (4) CAD (coronary artery disease): -stable, no reports of chest pain -Patient currently on full dose aspirin for DVT prophylaxis from recent hip surgery, which is on hold 2/2 recent surgery. -Hold statin due to transaminitis -Not on beta-klever, ABILIO/ARB secondary to bradycardia and hypotension in the past -Follows with [facility] cardiology (5) Diabetes mellitus, type 2: -Hgb A1c 5.5 04/2019 -Hold oral agents and utilize NovoLog per protocol while hospitalized -currently at goal (6) GERD (gastroesophageal reflux disease): -Continue PPI (7) Hip fracture requiring operative repair: -Right periprosthetic hip fracture treated at [facility] 07/23/2019, had a large amount of blood loss intraoperatively, requiring 6 units PRBC -Hgb stable today at 10.8 -Currently at [facility] for rehab and is 50% WBAT to the right leg. -PT/OT consulted here to continue working with him. (8) Anemia: Likely related to acute blood loss from multiple surgeries and hospitalizations. PCP to follow as outpatient. No transfusion needed at this time. (9) DVT prophylaxis: SCDs due to invasive procedure and upcoming surgery Full Code Dispo-discharge to rehab tomorrow Discharge to [facility] today Admission and Anticipated Discharge Date Admission Date: July 30, 2019 Anticipated date of discharge: 08/04/19 Subjective The patient was seen and examined in medical unit He is status post ERCP with sphincterotomy, balloon sweep of bile duct and biliary stent placement on 07/30/2019 Status post laparoscopic cholecystectomy on 08/01/2019 Has been feeling better as of today Complains only to have dysuria but no fever and/or chills The patient was seen and examined in medical floor in presence of the He has been feeling a lot better Tolerated diet so far Has been getting physical therapy and ready to go to rehab Denies any significant symptoms 08/04/2019 Patient is seen and examined in medical floor He has been tolerating regular diet and doing very well with physical therapy Denies any significant symptoms today Review of Systems Review of Systems: All systems reviewed and are unremarkable except as noted below Gastrointestinal: Minimal abdominal discomfort on palpation Physical Exam Physical Exam: Sitting on a chair without any distress Constitutional: well developed, well nourished, + acute distress (Due to pain with urination) and + ill appearing Eyes: PERRL, conjunctivae normal, anicteric sclerae ENMT: external ear and nose normal, oropharynx normal Neck: trachea midline, no thyromegaly Respiratory: normal respiratory effort; no respiratory distress Auscultation: lungs clear to auscultation bilaterally Cardiovascular: Rate/Rhythm: regular rate and regular rhythm Heart Sounds: no murmur Gastrointestinal (Abdomen): Inspection/Auscultation: abdomen normal to inspection and normal bowel sounds Percussion/Palpation: + abdomen tender (Minimally tender on palpation) and abdomen soft Neurologic: moves all extremities; no focal motor deficits Lymphatic: no cervical or axillary lymphadenopathy Results & Data ([facility]) Vital Signs (Past 12 Hours) Vital Signs Temp Pulse Resp BP Pulse Ox 08/04/19 15:18 36.8 C 79 17 118/61 97 08/04/19 14:26 36.9 C 08/04/19 06:50 37.2 C 79 16 137/76 99 (1) Diabetes mellitus, type 2 Diabetes mellitus complication status: without complication Diabetes mellitus retirement insulin use: without retirement use Qualified Code(s): E11.9 - Type 2 diabetes mellitus without complications (2) Hip fracture requiring operative repair Encounter type: sequela Fracture type: closed Laterality: right Qualified Code(s): S72.001S - Fracture of unspecified part of neck of right femur, sequela
--- NOTE | 2019-08-05 08:00 | Discharge Summary ---
Date of Service August 05, 2019 Admission HPI Per Admitting Provider 78 year old male who presents to the ED for evaluation of nausea. Patient is currently at [facility] receiving rehab after surgery for right periprosthetic hip fracture repair. This was completed at [facility] and per records sent with patient, he had a large amount of blood loss and required 6 units PRBC. This morning, patient was noted to be jaundice and was sent to the ED for further evaluation. Patient reports having right upper quadrant abdominal pain radiating into his back approximately 1 year ago. Patient reports work-up by his PCP was unremarkable. Patient denies any recent abdominal pain, nausea, vomiting. No diarrhea or constipation. Denies fevers and chills. No chest pain, shortness of breath, lightheadedness, dizziness, diaphoresis, syncopal events. Denies any urinary symptoms. In the ED, patient is found to have transaminitis T bili 12.7, AST 467, ALT 398, alk phos 578. Lipase 1905. RUQ US shows distended sludge-filled gallbladder with minimal pericholecystic fluid/perihepatic ascites. Admission Exam Per Admitting Provider Constitutional: WD/WN, vitals as above Eyes: PERRL; no conjunctival abnormality and sclerae not anicteric (Sclera icteric) ENMT: external ear and nose normal, oropharynx normal Respiratory: normal respiratory effort, lungs clear to auscultation Cardiovascular: Rate/Rhythm: regular rate and regular rhythm Vessels: normal peripheral pulses Extremities: no edema Gastrointestinal (Abdomen): normal bowel sounds, soft, nontender, no hepatosplenomegaly Musculoskeletal: no cyanosis or clubbing, extremities motor strength 5/[address] to right hip, surrounding ecchymosis noted Skin: no rashes, warm and dry + jaundice Neurologic: PERRL, EOMI, accommodation nl, no face palsy, no dysarthria Psychiatric: A+Ox3, euthymic affect Principal Diagnosis Acute cholecystitis status post laparoscopic cholecystectomy, choledocholithiasis status post ERCP and stent placement, stable CAD Discharge Exam Constitutional well developed, well nourished, + acute distress (Due to pain with urination) and + ill appearing Eyes PERRL, conjunctivae normal, anicteric sclerae ENMT external ear and nose normal, oropharynx normal Neck trachea midline, no thyromegaly Respiratory normal respiratory effort; no respiratory distress Auscultation: lungs clear to auscultation bilaterally Cardiovascular Rate/Rhythm: regular rate and regular rhythm Heart Sounds: no murmur Gastrointestinal (Abdomen) Inspection/Auscultation: abdomen normal to inspection and normal bowel sounds Percussion/Palpation: + abdomen tender (Minimally tender on palpation) and abdomen soft Neurologic moves all extremities; no focal motor deficits Lymphatic no cervical or axillary lymphadenopathy Discharge Data Allergies Allergy/AdvReac Type Severity Reaction Status Date / Time Sulfa (Sulfonamide Allergy Mild RASH Verified 07/30/19 12:29 Antibiotics) Consultations 07/30/19 13:36 ED Decision to Admit Stat 07/30/19 19:06 Consult Gastroenterology Routine Consult General Surgery Routine Procedures Performed Operation Date: 07/30/19 07:30 Actual Procedures p Endoscopic Retrograde Cholangiopancreatogram, sphincterotomy, balloon sweep of bile duct, and biliary stent placement(Not Applicable) - Emerson Darling MD s Endoscopic Ultrasonography Upper - Emerson Darling MD Operation Date: 08/01/19 07:30 Actual Procedures p Laparoscopic Cholecystectomy(Not Applicable) - Julien Bowen MD Ordered Studies 07/30/19 12:35 US gallbladder Stat 07/30/19 14:48 FL ERCP biliary ductal Stat 07/30/19 15:40 US upper EUS PACS images Routine 07/30/19 18:06 CT pancreas 3-phase wo/w con Routine 07/30/19 18:56 US duplex portal hepatic veins Routine Hospital Course (1) Benign obstructive jaundice: 2/2 choledocholithiasis with sludge. Status post ERCP with sphincterotomy, balloon sweep of bile duct and biliary stent placement on 07/30/2019 Jaundice has resolved. Bili and LFTs decreased. Appreciate GI input and recommendation. We will have outpatient ERCP in 6 weeks (2) Transaminitis: Decreased after ERCP and stent placement. Transaminitis are normalized but bilirubin remains high at 2.4 (3) Acute cholecystitis: Equivocal imaging studies, however, patient has no pain or overt infection. Status post laparoscopic cholecystectomy on 08/01/2019 Appreciate surgery input and recommendation Clinically stable and doing better Continuing Zosyn empirically. Remains stable and will advance to regular diet Likely discharge tomorrow to rehab Has been tolerating regular diet and doing well with it Discussed with surgery and the patient discharged today (4) CAD (coronary artery disease): -stable, no reports of chest pain -Patient currently on full dose aspirin for DVT prophylaxis from recent hip surgery, which is on hold 2/2 recent surgery. -Hold statin due to transaminitis -Not on beta-klever, ABILIO/ARB secondary to bradycardia and hypotension in the past -Follows with [facility] cardiology (5) Diabetes mellitus, type 2: -Hgb A1c 5.5 04/2019 -Hold oral agents and utilize NovoLog per protocol while hospitalized -currently at goal (6) GERD (gastroesophageal reflux disease): -Continue PPI (7) Hip fracture requiring operative repair: -Right periprosthetic hip fracture treated at [facility] 07/23/2019, had a large amount of blood loss intraoperatively, requiring 6 units PRBC -Hgb stable today at 10.8 -Currently at [facility] for rehab and is 50% WBAT to the right leg. -PT/OT consulted here to continue working with him. (8) Anemia: Likely related to acute blood loss from multiple surgeries and hospitalizations. PCP to follow as outpatient. No transfusion needed at this time. (9) DVT prophylaxis: SCDs due to invasive procedure and upcoming surgery Full Code Dispo-discharge to rehab tomorrow Discharge to [facility] today Total Time Total Time Spent Total Time Spent (In Minutes): 35 minutes Total Time Includes: Examination of the Patient, Discharge Planning, Medication Reconciliation and Communication With Other Providers Discharge Plan Discharge Items Patient Disposition: Transfer [facility] Fac Reason For Visit: TRANSAMINITIS Discharge Diagnosis: Acute cholecystitis status post laparoscopic cholecystectomy, choledocholithiasis status post ERCP and stent placement, stable CAD Condition on Discharge: Good Activity: Resume your previous activity Non-emergency contact: Primary Care Provider Call non-emergency contact if: you have any medication questions and your symptoms worsen Follow-up/Referrals: [facility] [Primary Care Provider] - Diet: Carb Consistent or DM2 and Low Fat Addtl Attending Provider Instructions: Please take precaution to avoid falls Addtl Assistant Community Manager Provider Instructions: Post-Surgical ~Discharge Instructions Activity Recommendations: - lifting limitation: (20 pounds for 4 weeks), - exercise/sex/sports limit: (nonstrenuous for 2 weeks), - driving or machine use limit: (none for 1 week), - Shower/bathe limit: (may shower) Diet: - Resume previous diet SPECIAL CARE INSTRUCTIONS: - May shower. Remove outer dressings and let water run over area and pat dry. - Leave steri strips on for one week from your surgery and then remove. They may fall off on their own that is okay. - Call the surgeon's office with any questions or concerns - - (ex. temperature higher than 101 degrees F, excessive bleeding or pain). MEDICATIONS: - Resume previous medications unless instructed otherwise by your surgeon/medi [facility] doctor. - Tylenol 650 mg every 6 hours as needed for pain. FOLLOW UP VISIT: - Please call the office to schedule a two week follow-up appointment. Office number . Your post-op appointment may be a telephone call to see how you are doing due to the recent [facility] outpatient clinic restrictions due to Coronavirus. Pending Studies at Discharge: No Stand-Alone Forms: My [facility] Skilled Items Patient informed of condition?: Yes DNR: No Discharge Level of Care: Skilled Communicable Disease: No Discharge Prognosis: Stable Lines: None Urinary Catheter: No Medications and DC Order Prescriptions: New hydrocodone-acetaminophen [[place]] 5-325 mg Tablet 1 tab PO Q6H PRN (Reason: pain) Qty: 10 RF: 0 Continued levothyroxine 75 mcg Tablet 75 mcg PO QAM RF: 0 pantoprazole 40 mg Tablet,Delayed Release (Dr/Ec) 40 mg PO QAM RF: 0 metformin 1,000 mg Tablet 1,000 mg PO BIDM RF: 0 aspirin 325 mg Tablet 325 mg PO QAM RF: 0 hydrocodone-acetaminophen 5-325 mg tablet 1 tab PO UD RF: 0 atorvastatin 10 mg Tablet 10 mg PO HS RF: 0 calcium carbonate 500 mg calcium (1,250 mg) Tablet 500 mg PO DAILY RF: 0 ferrous sulfate 325 mg (65 mg iron) Tablet 325 mg PO BID RF: 0 Humulin R Regular U-100 Insuln 100 unit/mL Solution 1 sliding scale dose SUBCUT USEASDIRECTD RF: 0 docusate sodium 100 mg Capsule 100 mg PO BID RF: 0 Discharge Orders: Discharge Order (Routine); Ordered 08/04/19 Ordered By: Jess Bullock/Other Patient Handouts: Gallbladder Surg Admission Data Admit Date/Time: 07/30/19 14:52 Attending Provider: Jess Wilkinson Admit Provider: Janell Choudhary Primary Care Provider: [facility] Other Providers: Janell Choudhary ; Emerson Darling ; Julien Bowen ; [facility] Other Interventions: Discharge Summary Assessment (RN) Last Done: 08/04/19 16:23 DC Date/Time DO NOT enter until pt leaves facility: 08/04/19 17:28
== END 2019-08-04 17:28 | DRG 417 ==
LOC: ED 11:27 → ASU 14:51 → SUATTDRO 14:52 → 2W 14:52 → 3N 07-31 18:58

== ENCOUNTER 2023-07-01 18:26 | Inpatient (IN) ==
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
[2023-07-01] MEDS: LIDOCAINE 4% TOP 50 ML VIAL EXT ONE (19:47)
--- OUTSIDE RECORDS SUMMARY | 2023-07-01 20:39 | External Medical Summary ---
Author Name Unknown Address Unknown Organization [id number]:[facility] [address] [place] [address] Laboratory Report Ordering Provider Test Date Status CIRA CHUNG 06/13/2023 01:40:00 Final Observation Date Value Abnormality Reference (Units ) Status Methicillin resistant Staphylococcus aureus (MRSA) DNA [Presence] in Nose by JOHN with probe detection 06/13/2023 01:40:00 Negative Negative Final No Methicillin resistant Sta phylococcus aureus detected by PCR (amplified probe). Performing Location [facility] - [address] [place] [address]
--- OUTSIDE RECORDS SUMMARY | 2023-07-01 20:39 | External Medical Summary ---
Author Name Unknown Address Unknown Organization [id number]:[facility] [place] - [address] [facility] [address] Laboratory Report Ordering Provider Test Date Status MARLENE SANCHEZ 06/18/2023 07:38:29 Final Observation Date Value Abnormality Reference (Units ) Status WBC, Total 06/18/2023 07:38:29 6.97 4.00-10.80 (K/uL) Final RBC 06/18/2023 07:38:29 2.36 4.50-5.25 (M/uL) Final Hemoglobin 06/18/2023 07:38:29 7.4 Below low normal 14.0-16.8 (g/dL) Final HCT 06/18/2023 07:38:29 24.2 Below low normal 40.0-48.4 (%) Final MCV 06/18/2023 07:38:29 102.5 82.0-99.5 (fL) Final MCH 06/18/2023 07:38:29 31.4 27.0-34.0 (pg) Final MCHC 06/18/2023 07:38:29 30.6 32.0-36.0 (g/dL) Final RDW 06/18/2023 07:38:29 17.0 11.5-15.5 (%) Final Platelets 06/18/2023 07:38:29 320 140-400 (K/uL) Final MPV 06/18/2023 07:38:29 8.7 6.6-11.1 (fL) Final Nucleated erythrocytes/100 leukocytes [Ratio] in Blood by Automated count 06/18/2023 07:38:29 0 <=0 (/100 WBCs) Final Performing Location [facility] [place] - [address] [place] [address]
--- OUTSIDE RECORDS SUMMARY | 2023-07-01 20:39 | External Medical Summary ---
Author Name Unknown Address Unknown Organization K01:[facility] - [address] [place] [id number] Laboratory Report Ordering Provider Test Date Status CIRA CHUNG 06/13/2023 02:16:00 Final Observation Date Value Abnormality Reference (Units ) Status Bacteria identified in Specimen by Culture 06/13/2023 02:16:00 No growth Final Test: Culture, Blood
Chago kennedy Type: Blood
Specimen Date: 06/13/2023 2:16 AM
Result Date: 06/18/2023 4:01 AM
Result Status: Final result
Resulting Lab: [facility]
[address]
[place] [id number]

CULTURE

No growth

null Performing Location [facility] - [address] [place] [id number]
--- OUTSIDE RECORDS SUMMARY | 2023-07-01 20:39 | External Medical Summary | Summary of Care ---
Author Name Unknown Organization [facility] Address [address] [place] [address] Phone [phone] Care Team Providers Care Sheriff Deputy Name Role Phone RobelJoe sethi Ronnie NORMAN Primary Care Provider [phone] Reason for Visit * Reason Onset Date Comments Appointment 06/25/2023 Encounter Details Date Type Department Care Team (Late st Contact Info) Description 06/25/2023 Telephone Radiation Oncology, [place] [address] [place] [address] [facility] Rad/Onc Nurse [address], [place] [id number] Appointment Allergies Active Allergy Reactions Criticality Noted Date Comments Sulfa Antibiotics Rash 11/02/2004 Rash documented as of this encounter (statuses as of 06/25/2023) Medications Medication Sig Dispensed Refills Start Date End Date Status Misc. Devices Cool mist humidification device Cool mist humidification device 1 Each 0 05/30/2023 Active Misc. Devices Portable suction device. 1 Each 0 05/30/2023 Active Misc. Devices Yankauer suction tips. 30 Each 05/30/2023 Active Misc. Devices 6-0 Shiley 6UN75H (uncuffed). 4 Each 05/30/2023 Active Misc. Devices 4-0 Shiley 4UN65H (uncuffed). 1 Each 0 05/30/2023 Active Misc. Devices Inner cannulas for 6-0 Shiley (6IC75). 50 Each 05/30/2023 Active Misc. Devices Trach care cleaning kit. 1 Each 0 05/30/2023 Active Misc. Devices 12 Fr flexible suction catheters. 30 Each 5 05/30/2023 Active Calcium Carbonate 600 MG Oral Tablet Take 1 Tablet by mouth 2 times a day with morning and evening meals. 90 Tablet 3 06/11/2023 Active Ferrous Sulfate 325 (65 Fe) MG Oral Tablet (Feosol) Take 1 Tablet by mouth daily with breakfast. 90 Tablet 3 06/11/2023 Active metFORMIN HCl 1000 MG Oral Tablet (Glucophage) Take 1 Tablet by mouth 2 times a day with morning and evening meals. 90 Tablet 06/11/2023 Active Levothyroxine Sodium 75 MCG Oral Tablet (Levoxyl) Take 1 Tablet by mouth daily first thing in the morning. (at least 30 min prior to breakfast or other meds) 90 Tablet 06/11/2023 Active Aspirin 81 MG Oral Tablet Chewable Administer 1 Tablet into G tube in the morning. Administer 1 Tablet into G tube in the morning.. 90 Tablet 06/11/2023 Active Rosuvastatin Calcium 5 MG Oral Tablet (Crestor) Administer 1 Tablet into G tube in the morning. Administer 1 Tablet into G tube in the morning.. 90 Tablet 3 06/11/2023 Active Acetaminophen 160 MG/5ML Oral Liquid (Tylenol) Administer 30.5 mL into G tube every 6 hours as needed for Pain, Moderate or Pain, Mild. Administer 30.5 mL into G tube every 6 hours as needed for Pain, Moderate or Pain, Mild. 118 mL 0 06/11/2023 Active Chlorhexidine Gluconate 0.12 % Mouth/Throat Solution (Periogard) Apply 15 mL to inside of cheek in the morning and 15 mL in the evening. Apply 15 mL to inside of cheek in the morning and 15 mL in the evening.. 473 mL 0 06/11/2023 Active Docusate Sodium 50 MG/5ML Oral Liquid (Colace) Administer 10 mL into G tube in the morning and 10 mL before bedtime. Administer 10 mL into G tube in the morning and 10 mL before bedtime.. 100 mL 0 06/11/2023 Active Doxazosin Mesylate 2 MG Oral Tablet (Cardura) Administer 1 Tablet into G tube in the morning. Administer 10 mL into G tube in the morning and 10 mL before bedtime.. 90 Tablet 06/11/2023 Active Nutren 1.5 Oral Liquid Administer 250 mL into feeding tube 5 times a day. Administer 250 mL into feeding tube 5 times a day. [address] mL 3 06/11/2023 Active omeprazole (PriLOSEC) 2 mg/mL oral suspension Administer 10 mL into G tube in the morning. Administer 10 mL into G tube in the morning.. 90 mL 3 06/11/2023 Active Sennosides 8.6 MG Oral Tablet (Senokot) Administer 1 Tablet into G tube in the morning. Administer 1 Tablet into G tube in the morning.. 90 Tablet 3 06/11/2023 Active Water For Irrigation, Sterile (FEED TUBE WATER) TF Administer 200 mL into G tube in the morning and 200 mL at noon and 200 mL before bedtime. Administer 200 mL into G tube in the morning and 200 mL at noon and 200 mL before bedtime.. 90 Each 3 06/11/2023 Active documented as of this encounter (statuses as of 06/25/2023) Active Problems Problem Noted Date Diagnosed Date Adjustment disorder with depressed mood 06/06/19 Head and neck cancer 06/05/2023 Goals of care, counseling/discussion 06/04/2023 Palliative care encounter 06/04/2023 Other insomnia 06/04/2023 Constipation 06/04/2023 Impaired mobility and ADLs 06/02/2023 Urinary retention 05/31/2023 Tracheostomy status 05/29/2023 Severe protein-energy malnutrition 05/27/2023 Abnormal gait 05/27/2023 Vocal cord dysfunction 05/27/2023 Difficult airway for intubation 05/26/2023 Laryngeal mass 05/26/2023 Stridor 05/26/2023 Postoperative urinary retention 05/22/2022 Carotid stenosis 07/24/2021 Overview: Last Assessment & Plan: I had a long discussion with the patient and his . I explained to them that he does not quite meet ACAS criteria for carotid endarterectomy for asymptomatic patients. However, we will continue to do routine surveillance on him. We will see him back in 6 months and repeat a carotid duplex. I also explained what symptoms of a stroke are like and told him that if he has any of those symptoms, he should go to the emergency room immediately. 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 Patient also had clipping of the left atrial appendage History of right coronary artery stent placement 12/21/2019 Overview: 11/21/2009 PCI of proximal RCA with 3.5 x 23 Xience drug-eluting stent. Unsuccessful intervention on circumflex. Osteoporosis of multiple sit es without pathological fracture 09/10/2019 Gynecomastia 10/07/2018 Benign essential hypertension 03/23/2018 Fatigue 03/23/2018 Hearing loss 03/23/2018 Hypothyroidism 03/23/2018 Inguinal hernia 03/23/2018 Osteoarthrosis 03/23/2018 Type 2 diabetes mellitus without complication PVCs (premature ventricular contractions) 2011 Gastroesophageal reflux disease 03/04/2011 MALIGNANT GARTH LARYNX NEC 11/13/2004 documented as of this encounter (statuses as of 06/25/2023) Social History Tobacco Use Types Packs/Day Years Used Date Smoking Tobacco: Former Cigarettes 1 30 Q uit: 1970 Smokeless Tobacco: Former Chew Quit: 2004 Alcohol Use Standard Drinks/Week Comments Not Currently 0 (1 standard drink = 0.6 oz pur e alcohol) Sex and Gender Information Value Date Recorded Sex Assigned at Not on file Gender Identity Not on file Sexual Orientation Not on file Job Start Date Occupation Industry Not on file Not on file Not on file documented as of this encounter Miscellaneous Notes * Telephone Encounter - Sara Ortiz LPN - 06/25/2023 3:47 PM EST Patient is scheduled for Quad shot RT on 07/01/23 and 07/02/23. Rad/Onc staff has been attempting to contact patient regard RT appointments. Called both patient and patient's spouse's phones, No answer. Left messages for patient and patient's spouse to return my call. Called [facility] and spoke with Juany. Patient is still a patient at [facility] and will be tentatively discharged on 06/30/23. Juany will let patient know Rad/Onc staff is attempting to contact patient. Rad/Onc nursing phone number provided. documented in this encounter Plan of Treatment Upcoming Encounters Date Type Department Care Team (Late st Contact Info) Description 07/30/2023 11:00 AM EDT Office Visit Hematology Oncology [facility] [address] [place] [address] Shannan Bermeo MD [address] [place] [address] Health Maintenance Due Date Last Done Comments Depression Screening 1952 Zoster Vaccines (1 of 2) 1992 TSH 11/07/2021 11/07/2020 COVID-19 Vaccine (2 - 2022-2 4 season) 2023 02/13/2022 Influenza Vaccine (FLU shot) Completed 04/2023, 02/13/2022, 05/03/2021, Additional history exists documented as of this encounter Medical Devices Implanted Type Area Toe Former Stitchdowns Device Identifier Shelf Expiration Date Model / Serial / Lot Lens Intraoc 20.5 - [id number] - [id number] Implanted:Qty: 1 on 06/27/2020 by Mason Hassan MD at OR [facility] Right: Eye [employer] 10/16/2024 [id number] / [id number] / [id number] Lens Intraoc 21.0 - [id number] - [id number] Implanted:Qty: 1 on 07/11/2020 by Mason Hassan MD at [facility] Left: Eye [employer] 02/15/2025 [id number] / [id number] / [id number] documented as of this encounter Advance Directives Latest Code Status on File Code Status Date Activated Date Inactivated Comments Limited Code 05/26/2023 4:21 PM 06/11/2023 5:34 PM This o rder reflects the patients wishes and were consensually agreed upon. Question Answer Comments Discussion of Advance Directives occurred with: Patient Does the patient have a Living Will? No Does the patient have Health Care Power of Signs Sales Representative? No Bag Valve Device? Yes Intubation? Yes Cardiac Compressions? No Defibrillation? No Care Teams Sheriff Deputy Relationship Specialty Start Date End Date Joe Huston DO [address] [place], [place] [address]BRITTANY mike [id number] PCP - General Family Medicine 10/22/19 documented as of this encounter
--- OUTSIDE RECORDS SUMMARY | 2023-07-01 20:39 | External Medical Summary ---
Author Name Unknown Address Unknown Organization [id number]:[facility]ORY [facility] [place] [address] [place] [address] Laboratory Report Ordering Provider Test Date Status MARLENE SANCHEZ 06/25/2023 07:24:53 Final Observation Date Value Abnormality Reference (Units ) Status BUN 06/25/2023 07:24:53 24 Above high normal 6-20 (mg/dL) Final Creatinine 06/25/2023 07:24:53 0.7 0.6-1.2 (mg/dL) Final Glomerular filtration rate/1.73 sq M.predicted [Volume Rate/Area] in Serum, Plasma or Blood by Creatinine-based formula (CKD-EPI) 06/25/2023 07:24:53 >90 >=60 (mL/min) Final eGFR is calculated based on the CKD-EPI 2020 equation SODIUM 06/25/2023 07:24:53 138 135-146 (m mol/L) Final Potassium 06/25/2023 07:24:53 4.4 3.5-5.1 (m mol/L) Final Cl 06/25/2023 07:24:53 99 98-107 (mm ol/L) Final CO2 06/25/2023 07:24:53 28 22-32 (mmo l/L) Final Anion gap 06/25/2023 07:24:53 11 7-15 (mmol /L) Final Glucose 06/25/2023 07:24:53 146 Above high normal 70 -120 (mg/dL) Final Calcium 06/25/2023 07:24:53 8.7 8.4-10.2 ( mg/dL) Final Performing Location LABORATORY [facility] - [address] [place] [address]
--- OUTSIDE RECORDS SUMMARY | 2023-07-01 20:39 | External Medical Summary ---
Author Name Unknown Address Unknown Organization [id number]:LABORATORY [facility] [place] - [address] [place] [address] Laboratory Report Ordering Provider Test Date Status ETHANDEREJE 06/13/2023 16:53:35 Final Observation Date Value Abnormality Reference (Units) Status Bacteria identified in Specimen by Culture 06/13/2023 16:53:35 No significant growth Final Test: Culture, Urine, Quanti tative
Specimen Source: Urine, Unspecified
Specimen Type: Urine
Specimen Date: 06/13/2023 4:53 PM
Result Date: 06/14/2023 2:37 PM
Result Status: Final result
Resulting Lab: LABORATORY [facility] [place]
[address]
[facility] [address]

CULTURE

No significant growth

null Performing Location LABORATORY [facility] [place] - [address] [facility] [address]
--- OUTSIDE RECORDS SUMMARY | 2023-07-01 20:39 | External Medical Summary ---
Author Name Unknown Address Unknown Organization [id number]:LABORATORY [facility] [place] [facility] - [address] [place] [address] Laboratory Report Ordering Provider Test Date Status BRYON MILLER 06/15/2023 07:27:17 Final Observation Date Value Abnormality Reference (Units ) Status ABO 06/15/2023 07:27:17 A Final RH 06/15/2023 07:27:17 Negative Final RED BLOOD CELL ANTIBODY SCREEN 06/15/2023 07:27:17 Negative Final SPECIMEN EXPIRATION DATE 06/15/2023 07:27:17 06/18/2023 23:59 Final Performing Location LABORATORY [facility] - [address] [place] [address]
--- OUTSIDE RECORDS SUMMARY | 2023-07-01 20:39 | External Medical Summary ---
Author Name Unknown Address Unknown Organization [id number]:LABORATORY [facility] - [address] [facility] [place] [address] Laboratory Report Ordering Provider Test Date Status MARLENE SANCHEZ 06/22/2023 07:01:04 Final Observation Date Value Abnormality Reference (Units ) Status SYNC LEUKOCYTES IN BLOOD BY AUTOMATED COUNT 06/22/2023 07:01:04 6.13 4.00-10.80 (K/uL) Final Segs 06/22/2023 07:01:04 50.3 40.0-75.0 (%) Final Lymphs % 06/22/2023 07:01:04 28.1 18.0-42.0 (%) Final Monos 06/22/2023 07:01:04 14.5 Above high normal 1.0-11.0 (%) Final Eosinophils 06/22/2023 07:01:04 5.5 0.0-6.0 (%) Final Basos 06/22/2023 07:01:04 0.3 0.0-2.0 (%) Final Immature Granulocyte, Percent 06/22/2023 07:01:04 1.3 0.0-2.0 (%) Final Absolute Segs 06/22/2023 07:01:04 3.08 1.80-7.70 (K/uL) Final Lymphs, absolute 06/22/2023 07:01:04 1.72 1.00-4.80 (K/ul) Final Monos, Abs 06/22/2023 07:01:04 0.89 0.00-1.10 (K/uL) Final Eos, Abs 06/22/2023 07:01:04 0.34 0.00-0.70 (K/uL) Final Basos, Abs 06/22/2023 07:01:04 0.02 0.00-0.20 (K/uL) Final Immature Granulocytes, Number 06/22/2023 07:01:04 0.08 0.00-0.20 (K/uL) Final Performing Location LABORATORY [facility] - [address] [facility] [address]
--- OUTSIDE RECORDS SUMMARY | 2023-07-01 20:39 | External Medical Summary ---
Author Name Unknown Address Unknown Organization K01:[place] [place] [address] [facility] [address] Laboratory Report Ordering Provider Test Date Status MARLENE SANCHEZ 06/14/2023 07:41:16 Final Observation Date Value Abnormality Reference (Units ) Status WBC, Total 06/14/2023 07:41:16 10.48 4.00-10.80 (K/uL) Final RBC 06/14/2023 07:41:16 2.28 4.50-5.25 (M/uL) Final Hemoglobin 06/14/2023 07:41:16 7.1 Below low normal 14.0-16.8 (g/dL) Final HCT 06/14/2023 07:41:16 23.0 Below low normal 40.0-48.4 (%) Final MCV 06/14/2023 07:41:16 100.9 82.0-99.5 (fL) Final MCH 06/14/2023 07:41:16 31.1 27.0-34.0 (pg) Final MCHC 06/14/2023 07:41:16 30.9 32.0-36.0 (g/dL) Final RDW 06/14/2023 07:41:16 16.5 11.5-15.5 (%) Final Platelets 06/14/2023 07:41:16 282 140-400 (K/uL) Final MPV 06/14/2023 07:41:16 8.9 6.6-11.1 (fL) Final Nucleated erythrocytes/100 leukocytes [Ratio] in Blood by Automated count 06/14/2023 07:41:16 0 <=0 (/100 WBCs) Final Performing Location [facility] [place] [address] [place] [address]
--- OUTSIDE RECORDS SUMMARY | 2023-07-01 20:39 | External Medical Summary ---
Author Name Unknown Address Unknown Organization K01:[facility] [place] [address] [facility] [place] [address] Laboratory Report Ordering Provider Test Date Status MARLENE SANCHEZ 06/14/2023 07:41:16 Final Observation Date Value Abnormality Reference (Units ) Status SYNC LEUKOCYTES IN BLOOD BY AUTOMATED COUNT 06/14/2023 07:41:16 10.48 4.00-10.80 (K/uL) Final Segs 06/14/2023 07:41:16 76.9 Above high normal 40.0-75.0 (%) Final Lymphs % 06/14/2023 07:41:16 12.5 Below low normal 18.0-42.0 (%) Final Monos 06/14/2023 07:41:16 8.2 1.0-11.0 (%) Final Eosinophils 06/14/2023 07:41:16 1.0 0.0-6.0 (%) Final Basos 06/14/2023 07:41:16 0.4 0.0-2.0 (%) Final Immature Granulocyte, Percent 06/14/2023 07:41:16 1.0 0.0-2.0 (%) Final Absolute Segs 06/14/2023 07:41:16 8.06 Above high normal 1.80-7.70 (K/uL) Final Lymphs, absolute 06/14/2023 07:41:16 1.31 1.00-4.80 (K/ul) Final Monos, Abs 06/14/2023 07:41:16 0.86 0.00-1.10 (K/uL) Final Eos, Abs 06/14/2023 07:41:16 0.10 0.00-0.70 (K/uL) Final Basos, Abs 06/14/2023 07:41:16 0.04 0.00-0.20 (K/uL) Final Immature Granulocytes, Number 06/14/2023 07:41:16 0.11 0.00-0.20 (K/uL) Final Performing Location [facility] [place] [facility] [address] [facility] [address]
--- OUTSIDE RECORDS SUMMARY | 2023-07-01 20:39 | External Medical Summary ---
Author Name Unknown Address Unknown Organization K01:LABORATORY [facility] [place] [address] [place] [address] Laboratory Report Ordering Provider Test Date Status MARLENE SANCHEZ 06/14/2023 07:41:16 Final Observation Date Value Abnormality Reference (Units ) Status BUN 06/14/2023 07:41:16 21 Above high normal 6-20 (mg/dL) Final Creatinine 06/14/2023 07:41:16 0.7 0.6-1.2 (mg/dL) Final Glomerular filtration rate/1.73 sq M.predicted [Volume Rate/Area] in Serum, Plasma or Blood by Creatinine-based formula (CKD-EPI) 06/14/2023 07:41:16 >90 >=60 (mL/min) Final eGFR is calculated based on the CKD-EPI 2020 equation SODIUM 06/14/2023 07:41:16 132 Below low normal 135 -146 (mmol/L) Final Potassium 06/14/2023 07:41:16 4.2 3.5-5.1 (m mol/L) Final Cl 06/14/2023 07:41:16 96 Below low normal 98- 107 (mmol/L) Final CO2 06/14/2023 07:41:16 26 22-32 (mmo l/L) Final Anion gap 06/14/2023 07:41:16 10 7-15 (mmol /L) Final Glucose 06/14/2023 07:41:16 206 Above high normal 70 -120 (mg/dL) Final Albumin 06/14/2023 07:41:16 2.7 Below low normal 3.8 -5.0 (g/dL) Final AST (Aspartate aminotransferase) 06/14/2023 07:41:16 18 10-50 (U/L) Fin al Alk Phos 06/14/2023 07:41:16 71 35-130 (U/ L) Final Bilirubin, Total 06/14/2023 07:41:16 0.7 <=1 .2 (mg/dL) Final Calcium 06/14/2023 07:41:16 8.2 Below low normal 8.4 -10.2 (mg/dL) Final Protein 06/14/2023 07:41:16 5.5 Below low normal 6.0 -8.3 (g/dL) Final ALT (Alanine aminotransferase) 06/14/2023 07:41:16 20 10-50 (U/L) Toi cain Performing Location LABORATORY [facility] [place] - [address] [facility] [id number]
--- OUTSIDE RECORDS SUMMARY | 2023-07-01 20:39 | External Medical Summary ---
Author Name Unknown Address Unknown Organization K01:LABORATORY [facility] [place] - [address] [facility] [address] Laboratory Report Ordering Provider Test Date Status MARLENE SANCHEZ 06/22/2023 07:01:04 Final Observation Date Value Abnormality Reference (Units ) Status WBC, Total 06/22/2023 07:01:04 6.13 4.00-10.80 (K/uL) Final RBC 06/22/2023 07:01:04 2.57 4.50-5.25 (M/uL) Final Hemoglobin 06/22/2023 07:01:04 8.1 Below low normal 14.0-16.8 (g/dL) Final HCT 06/22/2023 07:01:04 26.0 Below low normal 40.0-48.4 (%) Final MCV 06/22/2023 07:01:04 101.2 82.0-99.5 (fL) Final MCH 06/22/2023 07:01:04 31.5 27.0-34.0 (pg) Final MCHC 06/22/2023 07:01:04 31.2 32.0-36.0 (g/dL) Final RDW 06/22/2023 07:01:04 17.2 11.5-15.5 (%) Final Platelets 06/22/2023 07:01:04 317 140-400 (K/uL) Final MPV 06/22/2023 07:01:04 9.0 6.6-11.1 (fL) Final Nucleated erythrocytes/100 leukocytes [Ratio] in Blood by Automated count 06/22/2023 07:01:04 0 <=0 (/100 WBCs) Final Performing Location LABORATORY [facility] [place] - [address] [place] [address]
--- OUTSIDE RECORDS SUMMARY | 2023-07-01 20:39 | External Medical Summary ---
Author Name Unknown Address Unknown Organization K01:[facility] [place] [address] [facility] [address] Laboratory Report Ordering Provider Test Date Status CIRA CHUNG 06/13/2023 06:00:00 Final Moderate growth normal reese Observation Date Value Abnormality Reference (Units ) Status Bacteria identified in Specimen by Culture 06/13/2023 06:00:00 [id number]^PSEUDOMON AERUGINOSA Abnormal Final Moderate Pseudomonas aerugin diamante Gram Stain 06/13/2023 06:00:00 No purulence detected. <25 neutrophils/low power microscopic field. Final Gram Stain 06/13/2023 06:00:00 No polymorphonuclear leukocyt es seen Final Gram Stain 06/13/2023 06:00:00 Rare Gram negative bacilli Final Gram Stain 06/13/2023 06:00:00 Rare Gram positive cocci Final Performing Location [facility] [place] [address] [facility] [address] Ordering Provider Test Date Status CIRA CHUNG 06/13/2023 06:00:00 Final Observation Date Value Abnormality Reference (Units ) Status Cefepime susceptibility 06/13/2023 06:00:00 Intermediate Final Ceftazidime susceptibility 06/13/2023 06:00:00 16 Intermediate Final Ciprofloxacin 06/13/2023 06:00:00 <=0.25 Susceptible Final Due to serious side effects, the FDA has advised against using Ciprofloxacin to treat uncomplicated UTIs and respiratory tract infections unless there are no alternative treatment options. Levofloxacin susceptibility 06/13/2023 06:00:00 0.25 Lan sceptible Final Due to serious side effects, the FDA has advised against using Levofloxacin to treat uncomplicated UTIs and respiratory tract infections unless there are no alternative treatment options. Meropenem [Susceptibility] 06/13/2023 06:00:00 1 Alaina ceptible Final Piperacillin + Tazobactamsusceptibility 06/13/2023 06:00:00 Intermediate Final This is an appended report. These results have been appended to a previously preliminary verified report. Tobramycinsusceptibility 06/13/2023 06:00:00 <=1 Susce ptible Final Test: Culture, Respiratory, Lower, Aerobic
Specimen Source: Tracheal Aspirate
Specimen Type: Lower Respiratory
Specimen Date: 06/13/2023 6:00 AM
Result Date: 06/16/2023 9:32 PM
Result Status: Final result
Abnormal: Yes
Resulting Lab: [facility] [place]
[address] [facility] [address]
[place] [address]

CULTURE

Moderate Pseudomonas aeruginosa (Abnormal)

Moderate growth normal reese

STAIN

No purulence detected. <25 neutrophils/low power microscopic field.

No polymorphonuclear leukocytes seen

Rare Gram negative bacilli

Rare Gram positive cocci

SUSCEPTIBILITY

Pseudomonas aeruginosa
METHOD MICROBROTH DILUTIONS

CEFEPIME -- Intermediate
CEFTAZIDIME 16 Intermediate
CIPROFLOXACIN <=0.25 Susceptible [1]
LEVOFLOXACIN 0.25 Susceptible [2]
MEROPENEM 1 Susceptible
PIPERACILLIN TAZOBACTAM -- Intermediate [3]
TOBRAMYCIN <=1 Susceptible

[1] Due to serious side effects, the FDA has advised against using
Ciprofloxacin to treat uncomplicated UTIs and respiratory tract infections
unless there are no alternative treatment options.

[2] Due to serious side effects, the FDA has advised against using
Levofloxacin to treat uncomplicated UTIs and respiratory tract infections
unless there are no alternative treatment options.

[3] This is an appended report. These results have been appended to a
previously preliminary verified report.

null Performing Location [facility] [place] [address] [facility] [address]
--- OUTSIDE RECORDS SUMMARY | 2023-07-01 20:39 | External Medical Summary ---
Author Name Unknown Address Unknown Organization K01:[facility]ATORY [facility] [place] - [address] [place] [address] Laboratory Report Ordering Provider Test Date Status JULIETLISSETTORRES 06/13/2023 02:18:00 Final Observation Date Value Abnormality Reference (Units ) Status CRP, low-sensitivity 06/13/2023 02:18:00 89 Above high normal <=5 (mg/L) Final Performing Location LABORATORY [facility] - [address] [place] [address]
--- OUTSIDE RECORDS SUMMARY | 2023-07-01 20:39 | External Medical Summary ---
Author Name Unknown Address Unknown Organization K01:LABORATORY [facility] [place] - [address] [facility] [address] Laboratory Report Ordering Provider Test Date Status MARLENE SANCHEZ 06/16/2023 09:30:04 Final Observation Date Value Abnormality Reference (Units ) Status WBC, Total 06/16/2023 09:30:04 6.42 4.00-10.80 (K/uL) Final RBC 06/16/2023 09:30:04 2.34 4.50-5.25 (M/uL) Final Hemoglobin 06/16/2023 09:30:04 7.4 Below low normal 14.0-16.8 (g/dL) Final HCT 06/16/2023 09:30:04 23.9 Below low normal 40.0-48.4 (%) Final MCV 06/16/2023 09:30:04 102.1 82.0-99.5 (fL) Final MCH 06/16/2023 09:30:04 31.6 27.0-34.0 (pg) Final MCHC 06/16/2023 09:30:04 31.0 32.0-36.0 (g/dL) Final RDW 06/16/2023 09:30:04 16.6 11.5-15.5 (%) Final Platelets 06/16/2023 09:30:04 312 140-400 (K/uL) Final MPV 06/16/2023 09:30:04 9.2 6.6-11.1 (fL) Final Nucleated erythrocytes/100 leukocytes [Ratio] in Blood by Automated count 06/16/2023 09:30:04 0 <=0 (/100 WBCs) Final Performing Location LABORATORY [facility] [place] - [address] [place] [address]
--- OUTSIDE RECORDS SUMMARY | 2023-07-01 20:39 | External Medical Summary ---
Author Name Unknown Address Unknown Organization [id number]:LABORATORY [facility] [place] - [address] [facility] [address] Laboratory Report Ordering Provider Test Date Status BRYON MILLER 06/15/2023 07:27:17 Final Observation Date Value Abnormality Reference (Units ) Status WBC, Total 06/15/2023 07:27:17 6.67 4.00-10.80 (K/uL) Final RBC 06/15/2023 07:27:17 2.18 4.50-5.25 (M/uL) Final Hemoglobin 06/15/2023 07:27:17 6.8 Below low normal 14.0-16.8 (g/dL) Final HCT 06/15/2023 07:27:17 22.2 Below low normal 40.0-48.4 (%) Final MCV 06/15/2023 07:27:17 101.8 82.0-99.5 (fL) Final MCH 06/15/2023 07:27:17 31.2 27.0-34.0 (pg) Final MCHC 06/15/2023 07:27:17 30.6 32.0-36.0 (g/dL) Final RDW 06/15/2023 07:27:17 16.8 11.5-15.5 (%) Final Platelets 06/15/2023 07:27:17 307 140-400 (K/uL) Final MPV 06/15/2023 07:27:17 9.1 6.6-11.1 (fL) Final Nucleated erythrocytes/100 leukocytes [Ratio] in Blood by Automated count 06/15/2023 07:27:17 0 <=0 (/100 WBCs) Final Performing Location LABORATORY [facility] [place] - [address] [facility] [address]
--- OUTSIDE RECORDS SUMMARY | 2023-07-01 20:39 | External Medical Summary ---
Author Name Unknown Address Unknown Organization K01:[place] [facility] [place] [address] [place] [address] Laboratory Report Ordering Provider Test Date Status CIRA CHUNG 06/13/2023 02:18:00 Final Observation Date Value Abnormality Reference (Units ) Status Lactic Acid 06/13/2023 02:18:00 1.3 0.4-2.0 (mmol/L) Final Performing Location [facility] - [address] [facility] [address]
--- OUTSIDE RECORDS SUMMARY | 2023-07-01 20:39 | External Medical Summary ---
Author Name Unknown Address Unknown Organization K01:LABORATORY [facility] [place] - [address] [place] [address] Laboratory Report Ordering Provider Test Date Status CIRA CHUNG 06/13/2023 02:18:00 Final Less than 0.5 ng/mL: Low ris k for progression to sepsis. Review patients condition for localized infections.

0.5 to 2.0 ng/mL: Intermediate risk for progresion to sepsis. Review underlying conditions. Recommend repeat PCT after 6 hours has elapsed.

Greater than 2.0 ng/mL: high risk for progression to sepsis unless other causes are known. Observation Date Value Abnormality Reference (Units ) Status Procalcitonin [Mass/volume] in Serum or Plasma by Immunoassay 06/13/2023 02:18:00 1.04 Above high normal <0.10 (ng/mL) Final Performing Location LABORATORY [facility] [place] - [address] [place] [address]
--- OUTSIDE RECORDS SUMMARY | 2023-07-01 20:39 | External Medical Summary ---
Author Name Unknown Address Unknown Organization K01:[facility]ORY [facility] [place] [address] [address] Laboratory Report Ordering Provider Test Date Status MARLENE SANCHEZ 06/12/2023 18:10:00 Final Observation Date Value Abnormality Reference (Units ) Status Color of Urine by Auto 06/12/2023 18:10:00 Light Yellow Colorless, Light Yellow, Yellow, Dark Yellow Final Clarity, Urine 06/12/2023 18:10:00 Clear Clear Final Glucose [Mass/volume] in Urine by Automated test strip 06/12/2023 18:10:00 Negative Negative (mg/dL) Final Bilirubin.total [Presence] in Urine by Automated test strip 06/12/2023 18:10:00 Negative Negative Final Ketones [Mass/volume] in Urine by Automated test strip 06/12/2023 18:10:00 Negative Negative (mg/dL) Final Specific gravity, Urine 06/12/2023 18:10:00 1.018 1.003-1.030 Final Hemoglobin [Presence] in Urine by Automated test strip 06/12/2023 18:10:00 Negative Negative Final pH, Urine 06/12/2023 18:10:00 5.5 5.0-7.5 (Units) Final Protein [Mass/volume] in Urine by Automated test strip 06/12/2023 18:10:00 Negative Negative (mg/dL) Final Urobilinogen [Mass/volume] in Urine by Automated test strip 06/12/2023 18:10:00 Normal Normal (mg/dL) Final Nitrite [Presence] in Urine by Automated test strip 06/12/2023 18:10:00 Negative Negative Final Leukocyte esterase [Presence] in Urine by Automated test strip 06/12/2023 18:10:00 Negative Negative Final RBC, Urine 06/12/2023 18:10:00 0-2 0-2 (/HPF) Final WBC, Urine 06/12/2023 18:10:00 0-2 0-2 (/HPF) Final Bacteria [#/area] in Urine sediment by Microscopy high power field 06/12/2023 18:10:00 0-25 0-25 (/HPF) Final CULTURE, URINE - [facility] 06/12/2023 18:10:00 Final Culture not indicated by uri nalysis results\[id number]\ Performing Location LABORATORY [facility] [place] - [facility] [address] [facility] [address]
--- OUTSIDE RECORDS SUMMARY | 2023-07-01 20:39 | External Medical Summary ---
Author Name Unknown Address Unknown Organization K01:LABORATORY [facility] - [address] [place] [address] Laboratory Report Ordering Provider Test Date Status CIRA CHUNG 06/13/2023 02:22:00 Final Observation Date Value Abnormality Reference (Units ) Status Bacteria identified in Specimen by Culture 06/13/2023 02:22:00 No growth Final Test: Culture, Blood
Chago kennedy Type: Blood
Specimen Date: 06/13/2023 2:22 AM
Result Date: 06/18/2023 4:01 AM
Result Status: Final result
Resulting Lab: [facility]
[address]
[place] [address]

CULTURE

No growth

null Performing Location [facility] - [address] [place] [address]
--- OUTSIDE RECORDS SUMMARY | 2023-07-01 20:39 | External Medical Summary ---
Author Name Unknown Address Unknown Organization K01:LABORATORY [facility] - [address] [place] [address] Laboratory Report Ordering Provider Test Date Status PAULBRYON 06/15/2023 07:27:17 Final Observation Date Value Abnormality Reference (Units ) Status Phosphate 06/15/2023 07:27:17 4.0 2.5-4.8 (m g/dL) Final Performing Location [facility] - [address] [place] [address]
--- OUTSIDE RECORDS SUMMARY | 2023-07-01 20:39 | External Medical Summary ---
Author Name Unknown Address Unknown Organization K01:LABORATORY [facility] [place] - [facility] [address] [facility] [address] [facility] [address] Laboratory Report Ordering Provider Test Date Status CIRA CHUNG 06/13/2023 02:18:00 Final Observation Date Value Abnormality Reference (Units ) Status WBC, Total 06/13/2023 02:18:00 14.03 Above high normal 4.00-10.80 (K/uL) Final RBC 06/13/2023 02:18:00 2.66 4.50-5.25 (M/uL) Final Hemoglobin 06/13/2023 02:18:00 8.4 Below low normal 14.0-16.8 (g/dL) Final HCT 06/13/2023 02:18:00 26.2 Below low normal 40.0-48.4 (%) Final MCV 06/13/2023 02:18:00 98.5 82.0-99.5 (fL) Final MCH 06/13/2023 02:18:00 31.6 27.0-34.0 (pg) Final MCHC 06/13/2023 02:18:00 32.1 32.0-36.0 (g/dL) Final RDW 06/13/2023 02:18:00 16.5 11.5-15.5 (%) Final Platelets 06/13/2023 02:18:00 332 140-400 (K/uL) Final MPV 06/13/2023 02:18:00 9.0 6.6-11.1 (fL) Final Nucleated erythrocytes/100 leukocytes [Ratio] in Blood by Automated count 06/13/2023 02:18:00 0 <=0 (/100 WBCs) Final Performing Location LABORATORY [facility] [place] - [address] [place] [address]
--- OUTSIDE RECORDS SUMMARY | 2023-07-01 20:39 | External Medical Summary ---
Author Name Unknown Address Unknown Organization K01:LAB[facility]ATORY [facility] - [address] [place] [address] Laboratory Report Ordering Provider Test Date Status BRYON MILLER 06/15/2023 07:27:17 Final Observation Date Value Abnormality Reference (Units ) Status Magnesium 06/15/2023 07:27:17 2.0 1.5-2.6 (m g/dL) Final Performing Location [facility] - [address] [place] [address]
--- OUTSIDE RECORDS SUMMARY | 2023-07-01 20:39 | External Medical Summary ---
Author Name Unknown Address Unknown Organization K01:LABORATORY [facility] [place] - [address] [facility] [address] Laboratory Report Ordering Provider Test Date Status CIRA CHUNG 06/13/2023 02:18:00 Final Observation Date Value Abnormality Reference (Units ) Status SYNC LEUKOCYTES IN BLOOD BY AUTOMATED COUNT 06/13/2023 02:18:00 14.03 Above high normal 4.00-10.80 (K/uL) Final Segs 06/13/2023 02:18:00 79.7 Above high normal 40.0-75.0 (%) Final Lymphs % 06/13/2023 02:18:00 11.5 Below low normal 18.0-42.0 (%) Final Monos 06/13/2023 02:18:00 8.0 1.0-11.0 (%) Final Eosinophils 06/13/2023 02:18:00 0.1 0.0-6.0 (%) Final Basos 06/13/2023 02:18:00 0.2 0.0-2.0 (%) Final Immature Granulocyte, Percent 06/13/2023 02:18:00 0.5 0.0-2.0 (%) Final Absolute Segs 06/13/2023 02:18:00 11.19 Above high normal 1.80-7.70 (K/uL) Final Lymphs, absolute 06/13/2023 02:18:00 1.61 1.00-4.80 (K/ul) Final Monos, Abs 06/13/2023 02:18:00 1.12 Above high normal 0.00-1.10 (K/uL) Final Eos, Abs 06/13/2023 02:18:00 0.01 0.00-0.70 (K/uL) Final Basos, Abs 06/13/2023 02:18:00 0.03 0.00-0.20 (K/uL) Final Immature Granulocytes, Number 06/13/2023 02:18:00 0.07 0.00-0.20 (K/uL) Final Performing Location LABORATORY [facility] [place] - [facility] [address] [facility] [address]
--- OUTSIDE RECORDS SUMMARY | 2023-07-01 20:39 | External Medical Summary ---
Author Name Unknown Address Unknown Organization K01:LAB[facility]ORY [facility] [place] - [address] [address] Laboratory Report Ordering Provider Test Date Status DEREJE LONG 06/13/2023 16:53:35 Final Observation Date Value Abnormality Reference (Units ) Status Color of Urine by Auto 06/13/2023 16:53:35 Yellow Colorless, Light Yellow, Yellow, Dark Yellow Final Clarity, Urine 06/13/2023 16:53:35 Slightly Cloudy Abnormal Clear Final Glucose [Mass/volume] in Urine by Automated test strip 06/13/2023 16:53:35 Negative Negative (mg/dL) Final Bilirubin.total [Presence] in Urine by Automated test strip 06/13/2023 16:53:35 Negative Negative Final Ketones [Mass/volume] in Urine by Automated test strip 06/13/2023 16:53:35 Negative Negative (mg/dL) Final Specific gravity, Urine 06/13/2023 16:53:35 1.025 1.003-1.030 Final Hemoglobin [Presence] in Urine by Automated test strip 06/13/2023 16:53:35 Large Abnormal Negative Final pH, Urine 06/13/2023 16:53:35 7.0 5.0-7.5 (Units) Final Protein [Mass/volume] in Urine by Automated test strip 06/13/2023 16:53:35 30 Abnormal Negative (mg/dL) Final Urobilinogen [Mass/volume] in Urine by Automated test strip 06/13/2023 16:53:35 2.0 Abnormal Normal (mg/dL) Final Nitrite [Presence] in Urine by Automated test strip 06/13/2023 16:53:35 Negative Negative Final Leukocyte esterase [Presence] in Urine by Automated test strip 06/13/2023 16:53:35 Negative Negative Final RBC, Urine 06/13/2023 16:53:35 50+ Abnormal 0-2 (/HPF) Final WBC, Urine 06/13/2023 16:53:35 20-29 Abnormal 0-2 (/HPF) Final Bacteria [#/area] in Urine sediment by Microscopy high power field 06/13/2023 16:53:35 0-25 0-25 (/HPF) Final Yeast [#/area] in Urine sediment by Microscopy high power field 06/13/2023 16:53:35 Present Abnormal None (/HPF) Final CULTURE, URINE - [facility] 06/13/2023 16:53:35 Final Quantitative urine culture t o be performed Performing Location LAB[facility]ORY [facility] [place] - [address] [facility] [address]
--- OUTSIDE RECORDS SUMMARY | 2023-07-01 20:39 | External Medical Summary ---
Author Name Unknown Address Unknown Organization K01:[place] [facility] [place] [address] [place] [address] Laboratory Report Ordering Provider Test Date Status MARLENE SANCHEZ 06/18/2023 07:38:29 Final Observation Date Value Abnormality Reference (Units ) Status BUN 06/18/2023 07:38:29 15 6-20 (mg/dL) Final Creatinine 06/18/2023 07:38:29 0.6 0.6-1.2 (mg/dL) Final Glomerular filtration rate/1.73 sq M.predicted [Volume Rate/Area] in Serum, Plasma or Blood by Creatinine-based formula (CKD-EPI) 06/18/2023 07:38:29 >90 >=60 (mL/min) Final eGFR is calculated based on the CKD-EPI 2020 equation SODIUM 06/18/2023 07:38:29 137 135-146 (m mol/L) Final Potassium 06/18/2023 07:38:29 4.4 3.5-5.1 (m mol/L) Final Cl 06/18/2023 07:38:29 100 98-107 (mm ol/L) Final CO2 06/18/2023 07:38:29 29 22-32 (mmo l/L) Final Anion gap 06/18/2023 07:38:29 8 7-15 (mmol /L) Final Glucose 06/18/2023 07:38:29 166 Above high normal 70 -120 (mg/dL) Final Calcium 06/18/2023 07:38:29 8.5 8.4-10.2 ( mg/dL) Final Performing Location [place] [facility] [place] [address] [place] [address]
--- OUTSIDE RECORDS SUMMARY | 2023-07-01 20:39 | External Medical Summary | Summary of Care ---
Author Name Unknown Organization [facility] Address [address] [address] , [place] Care Team Providers Care Clinical Dietetic Technician Name Role Phone Joe Huston DO Primary Care Provider [phone] Reason for Visit * Reason Comments Nutritional Services Documentation Encounter Details Date Type Department Care Team (Late st Contact Info) Description 07/01/2023 11:00 AM EST Scheduled Telephone Nutrition Services, [address] [facility], [address] [place] [address] Maria Elena Stoddard, RDN [address] [place] [address] Allergies Active Allergy Reactions Criticality Noted Date Comments Sulfa Antibiotics Rash 11/02/2004 Rash documented as of this encounter (statuses as of 07/01/2023) Medications Medication Sig Dispensed Refills Start Date [...] and evening meals. 90 Tablet 06/11/2023 Active Ferrous Sulfate 325 (65 Fe) MG Oral Tablet (Feosol) Take 1 Tablet by mouth daily with breakfast. 90 Tablet 06/11/2023 Active metFORMIN HCl 1000 MG Oral [...] in the morning.. 90 Tablet 06/11/2023 Active Acetaminophen 160 MG/5ML Oral Liquid [...] and 10 mL before bedtime.. 90 Tablet 3 06/11/2023 Active Nutren 1.5 Oral Liquid Administer 250 mL into feeding tube 5 times a day. Administer 250 mL into feeding tube 5 times a day. 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 Patient contacted via telephone to discuss current nutritional risk. Patient not able to be reached by RDN. Unable to leave voicemail for patient. Patient sent "Take Charge of your Nutrition" brochure via [employer] and/or postal mail. documented in this encounter Plan of Treatment Upcoming Encounters Date Type Department Care Team (Late st Contact Info) Description 07/30/2023 11:00 AM EDT Office Visit Hematology Oncology [facility] [address] [place] [address] Shannan Bermeo MD [address] [place] [address] Health Maintenance Due Date Last Done Comments Depression Screening 1952 Zoster Vaccines (1 of 2) 1992 TSH 11/07/2021 11/07/2020 COVID-19 Vaccine (2 - 2022-2 4 season) 2023 02/13/2022 Influenza Vaccine (FLU shot) Completed 04/2023, 02/13/2022, 05/03/2021, Additional history exists documented as of this encounter Medical Devices Implanted Type Area Mail Carrier And Clerk Device Identifier Shelf Expiration Date Model / Serial / Lot Lens Intraoc 20.5 - [id number] - [id number] Implanted:Qty: 1 on 06/27/2020 by Mason Hassan MD at OR [facility] Right: Eye [employer] 10/16/2024 [id number] / [id number] / [id number] Lens Intraoc 21.0 - [id number] - [id number] Implanted:Qty: 1 on 07/11/2020 by Mason Hassan MD at OR [facility] Left: Eye [employer] 02/15/2025 [id number] / [id number] / [id number] documented as of this encounter Advance Directives [...] the patient have Health Care Power of Wine Manager? No Bag Valve Device? Yes Intubation? Yes Cardiac Compressions? No Defibrillation? No Care Teams Clinical Dietetic Technician Relationship Specialty Start Date End Date Joe Huston DO [address] [place] [id number] PCP - General Family Medicine 10/22/19 documented as of this encounter
--- OUTSIDE RECORDS SUMMARY | 2023-07-01 20:39 | External Medical Summary ---
Author Name Unknown Address Unknown Organization K01:LABORATORY [facility] [place] - [address] [place] [address] Laboratory Report Ordering Provider Test Date Status MARLENE SANCHEZ 06/16/2023 09:30:04 Final Observation Date Value Abnormality Reference (Units ) Status BUN 06/16/2023 09:30:04 14 6-20 (mg/dL) Final Creatinine 06/16/2023 09:30:04 0.7 0.6-1.2 (mg/dL) Final Glomerular filtration rate/1.73 sq M.predicted [Volume Rate/Area] in Serum, Plasma or Blood by Creatinine-based formula (CKD-EPI) 06/16/2023 09:30:04 >90 >=60 (mL/min) Final eGFR is calculated based on the CKD-EPI 2020 equation SODIUM 06/16/2023 09:30:04 136 135-146 (m mol/L) Final Potassium 06/16/2023 09:30:04 4.9 3.5-5.1 (m mol/L) Final Cl 06/16/2023 09:30:04 99 98-107 (mm ol/L) Final CO2 06/16/2023 09:30:04 28 22-32 (mmo l/L) Final Anion gap 06/16/2023 09:30:04 9 7-15 (mmol /L) Final Glucose 06/16/2023 09:30:04 147 Above high normal 70 -120 (mg/dL) Final Calcium 06/16/2023 09:30:04 8.2 Below low normal 8.4 -10.2 (mg/dL) Final Performing Location LABORATORY [facility] [place] - [address] [place] [address]
--- OUTSIDE RECORDS SUMMARY | 2023-07-01 20:39 | External Medical Summary ---
Author Name Unknown Address Unknown Organization K01:LABORATORY [facility] [place] - [address] [facility] [address] Laboratory Report Ordering Provider Test Date Status MARLENE SANCHEZ 06/25/2023 07:24:53 Final Observation Date Value Abnormality Reference (Units ) Status WBC, Total 06/25/2023 07:24:53 6.73 4.00-10.80 (K/uL) Final RBC 06/25/2023 07:24:53 2.51 4.50-5.25 (M/uL) Final Hemoglobin 06/25/2023 07:24:53 7.9 Below low normal 14.0-16.8 (g/dL) Final HCT 06/25/2023 07:24:53 25.8 Below low normal 40.0-48.4 (%) Final MCV 06/25/2023 07:24:53 102.8 82.0-99.5 (fL) Final MCH 06/25/2023 07:24:53 31.5 27.0-34.0 (pg) Final MCHC 06/25/2023 07:24:53 30.6 32.0-36.0 (g/dL) Final RDW 06/25/2023 07:24:53 17.2 11.5-15.5 (%) Final Platelets 06/25/2023 07:24:53 227 140-400 (K/uL) Final MPV 06/25/2023 07:24:53 9.4 6.6-11.1 (fL) Final Nucleated erythrocytes/100 leukocytes [Ratio] in Blood by Automated count 06/25/2023 07:24:53 0 <=0 (/100 WBCs) Final Performing Location LABORATORY [facility] [place] - [address] [place] [address]
--- OUTSIDE RECORDS SUMMARY | 2023-07-01 20:39 | External Medical Summary ---
Author Name Unknown Address Unknown Organization K01:[facility]ORY [facility] [place] [address] [facility] [place] [address] Laboratory Report Ordering Provider Test Date Status MARLENE SANCHEZ 06/18/2023 07:38:29 Final Observation Date Value Abnormality Reference (Units ) Status SYNC LEUKOCYTES IN BLOOD BY AUTOMATED COUNT 06/18/2023 07:38:29 6.97 4.00-10.80 (K/uL) Final Segs 06/18/2023 07:38:29 53.7 40.0-75.0 (%) Final Lymphs % 06/18/2023 07:38:29 26.4 18.0-42.0 (%) Final Monos 06/18/2023 07:38:29 14.3 Above high normal 1.0-11.0 (%) Final Eosinophils 06/18/2023 07:38:29 4.3 0.0-6.0 (%) Final Basos 06/18/2023 07:38:29 0.4 0.0-2.0 (%) Final Immature Granulocyte, Percent 06/18/2023 07:38:29 0.9 0.0-2.0 (%) Final Absolute Segs 06/18/2023 07:38:29 3.74 1.80-7.70 (K/uL) Final Lymphs, absolute 06/18/2023 07:38:29 1.84 1.00-4.80 (K/ul) Final Monos, Abs 06/18/2023 07:38:29 1.00 0.00-1.10 (K/uL) Final Eos, Abs 06/18/2023 07:38:29 0.30 0.00-0.70 (K/uL) Final Basos, Abs 06/18/2023 07:38:29 0.03 0.00-0.20 (K/uL) Final Immature Granulocytes, Number 06/18/2023 07:38:29 0.06 0.00-0.20 (K/uL) Final Performing Location LABOR[facility]ORY [facility] [place] [address] [facility] [id number]
--- OUTSIDE RECORDS SUMMARY | 2023-07-01 20:39 | External Medical Summary ---
Author Name Unknown Address Unknown Organization K01:LABORATORY [facility] [place] - [address] [place] [address] Laboratory Report Ordering Provider Test Date Status MARLENE SANCHEZ 06/22/2023 07:01:04 Final Observation Date Value Abnormality Reference (Units ) Status BUN 06/22/2023 07:01:04 21 Above high normal 6-20 (mg/dL) Final Creatinine 06/22/2023 07:01:04 0.6 0.6-1.2 (mg/dL) Final Glomerular filtration rate/1.73 sq M.predicted [Volume Rate/Area] in Serum, Plasma or Blood by Creatinine-based formula (CKD-EPI) 06/22/2023 07:01:04 >90 >=60 (mL/min) Final eGFR is calculated based on the CKD-EPI 2020 equation SODIUM 06/22/2023 07:01:04 136 135-146 (m mol/L) Final Potassium 06/22/2023 07:01:04 4.7 3.5-5.1 (m mol/L) Final Cl 06/22/2023 07:01:04 100 98-107 (mm ol/L) Final CO2 06/22/2023 07:01:04 29 22-32 (mmo l/L) Final Anion gap 06/22/2023 07:01:04 7 7-15 (mmol /L) Final Glucose 06/22/2023 07:01:04 190 Above high normal 70 -120 (mg/dL) Final Calcium 06/22/2023 07:01:04 8.7 8.4-10.2 ( mg/dL) Final Performing Location LABORATORY [facility] - [address] [place] [address]
--- OUTSIDE RECORDS SUMMARY | 2023-07-01 20:39 | External Medical Summary ---
Author Name Unknown Address Unknown Organization K01:LABORATORY [facility] [place] - [address] [place] [address] Laboratory Report Ordering Provider Test Date Status BRYON MILLER 06/15/2023 07:27:17 Final Observation Date Value Abnormality Reference (Units ) Status BUN 06/15/2023 07:27:17 16 6-20 (mg/dL) Final Creatinine 06/15/2023 07:27:17 0.6 0.6-1.2 (mg/dL) Final Glomerular filtration rate/1.73 sq M.predicted [Volume Rate/Area] in Serum, Plasma or Blood by Creatinine-based formula (CKD-EPI) 06/15/2023 07:27:17 >90 >=60 (mL/min) Final eGFR is calculated based on the CKD-EPI 2020 equation SODIUM 06/15/2023 07:27:17 136 135-146 (m mol/L) Final Potassium 06/15/2023 07:27:17 4.2 3.5-5.1 (m mol/L) Final Cl 06/15/2023 07:27:17 98 98-107 (mm ol/L) Final CO2 06/15/2023 07:27:17 27 22-32 (mmo l/L) Final Anion gap 06/15/2023 07:27:17 11 7-15 (mmol /L) Final Glucose 06/15/2023 07:27:17 169 Above high normal 70 -120 (mg/dL) Final Calcium 06/15/2023 07:27:17 8.1 Below low normal 8.4 -10.2 (mg/dL) Final Performing Location LABORATORY [facility] - [address] [place] [address]
--- OUTSIDE RECORDS SUMMARY | 2023-07-01 20:39 | External Medical Summary ---
Author Name Unknown Address Unknown Organization K01:[place]ORY [facility] [place] [address] [facility] [place] [address] Laboratory Report Ordering Provider Test Date Status CIRA CHUNG 06/13/2023 01:40:00 Final Observation Date Value Abnormality Reference (Units ) Status Adenovirus DNA [Presence] in Nasopharynx by JOHN with non-probe detection 06/13/2023 01:40:00 Negative Negative Final Human coronavirus 229E RNA [Presence] in Nasopharynx by JOHN with non-probe detection 06/13/2023 01:40:00 Negative Negative Final Human coronavirus HKU1 RNA [Presence] in Nasopharynx by JOHN with non-probe detection 06/13/2023 01:40:00 Negative Negative Final Human coronavirus NL63 RNA [Presence] in Nasopharynx by JOHN with non-probe detection 06/13/2023 01:40:00 Negative Negative Final Human coronavirus OC43 RNA [Presence] in Nasopharynx by JOHN with non-probe detection 06/13/2023 01:40:00 Negative Negative Final SARS-CoV-2 (COVID-19) RNA [Presence] in Nasopharynx by JOHN with non-probe detection 06/13/2023 01:40:00 Negative Negative Final Human metapneumovirus RNA [Presence] in Nasopharynx by JOHN with non-probe detection 06/13/2023 01:40:00 Negative Negative Final Rhinovirus+Enterovirus RNA [Presence] in Nasopharynx by JOHN with non-probe detection 06/13/2023 01:40:00 Negative Negative Final Influenza virus A RNA [Presence] in Nasopharynx by JOHN with non-probe detection 06/13/2023 01:40:00 Negative Negative Final Influenza virus B RNA [Presence] in Nasopharynx by JOHN with non-probe detection 06/13/2023 01:40:00 Negative Negative Final Parainfluenza virus 1 RNA [Presence] in Nasopharynx by JOHN with non-probe detection 06/13/2023 01:40:00 Negative Negative Final Parainfluenza virus 2 RNA [Presence] in Nasopharynx by JOHN with non-probe detection 06/13/2023 01:40:00 Negative Negative Final Parainfluenza virus 3 RNA [Presence] in Nasopharynx by JOHN with non-probe detection 06/13/2023 01:40:00 Negative Negative Final Parainfluenza virus 4 RNA [Presence] in Nasopharynx by JOHN with non-probe detection 06/13/2023 01:40:00 Negative Negative Final Respiratory syncytial virus RNA [Presence] in Nasopharynx by JOHN with non-probe detection 06/13/2023 01:40:00 Negative Negative Final Bordetella pertussis.pertussis toxin promoter region [Presence] in Nasopharynx by JOHN with non-probe detection 06/13/2023 01:40:00 Negative Negative Final Chlamydophila pneumoniae DNA [Presence] in Nasopharynx by JOHN with non-probe detection 06/13/2023 01:40:00 Negative Negative Final Mycoplasma pneumoniae DNA [Presence] in Nasopharynx by JOHN with non-probe detection 06/13/2023 01:40:00 Negative Negative Final Bordetella parapertussis [id number] DNA [Presence] in Nasopharynx by JOHN with non-probe detection 06/13/2023 01:40:00 Negative Negative Final
The primers that detect Rhinovirus may cross react with some Enterorviruses. The validation of bronchial specimens, tracheal aspirates, and throats for this assay was developed and performance characteristics determined by [employer]. The validation of alternate specimen types has not been cleared or approved by the U.S. Food and Drug Administration (FDA). It has been determined that such clearance or approval is not necessary. [facility] Location LABORATORY [facility] [place] - [facility] [address] [facility] [address] [facility] [address]
--- OUTSIDE RECORDS SUMMARY | 2023-07-01 20:40 | External Medical Summary ---
Author Name Unknown Address Unknown Organization K01:LABORATORY [facility] – [place] - [address] [facility] [place] [address] Laboratory Report Ordering Provider Test Date Status MARLENE SANCHEZ 06/12/2023 08:08:30 Final Observation Date Value Abnormality Reference (Units ) Status BUN 06/12/2023 08:08:30 20 6-20 (mg/dL) Final Creatinine 06/12/2023 08:08:30 0.6 0.6-1.2 (mg/dL) Final Glomerular filtration rate/1.73 sq M.predicted [Volume Rate/Area] in Serum, Plasma or Blood by Creatinine-based formula (CKD-EPI) 06/12/2023 08:08:30 >90 >=60 (mL/min) Final eGFR is calculated based on the CKD-EPI 2020 equation SODIUM 06/12/2023 08:08:30 133 Below low normal 135 -146 (mmol/L) Final Potassium 06/12/2023 08:08:30 4.7 3.5-5.1 (m mol/L) Final Cl 06/12/2023 08:08:30 96 Below low normal 98- 107 (mmol/L) Final CO2 06/12/2023 08:08:30 30 22-32 (mmo l/L) Final Anion gap 06/12/2023 08:08:30 7 7-15 (mmol /L) Final Glucose 06/12/2023 08:08:30 143 Above high normal 70 -120 (mg/dL) Final Albumin 06/12/2023 08:08:30 2.8 Below low normal 3.8 -5.0 (g/dL) Final AST (Aspartate aminotransferase) 06/12/2023 08:08:30 22 10-50 (U/L) Fin al Alk Phos 06/12/2023 08:08:30 74 35-130 (U/ L) Final Bilirubin, Total 06/12/2023 08:08:30 0.6 <=1 .2 (mg/dL) Final Calcium 06/12/2023 08:08:30 8.5 8.4-10.2 ( mg/dL) Final Protein 06/12/2023 08:08:30 5.7 Below low normal 6.0 -8.3 (g/dL) Final ALT (Alanine aminotransferase) 06/12/2023 08:08:30 24 10-50 (U/L) Toi cain Performing Location LABORATORY [facility] – [place] - [address] [facility] [id number]
--- OUTSIDE RECORDS SUMMARY | 2023-07-01 20:40 | External Medical Summary ---
Author Name Unknown Address Unknown Organization K01:[place]ORY [facility] [place] [address] [facility] [address] Laboratory Report Ordering Provider Test Date Status MARLENE SANCHEZ 06/12/2023 08:08:30 Final Observation Date Value Abnormality Reference (Units ) Status WBC, Total 06/12/2023 08:08:30 8.43 4.00-10.80 (K/uL) Final RBC 06/12/2023 08:08:30 2.59 4.50-5.25 (M/uL) Final Hemoglobin 06/12/2023 08:08:30 7.9 Below low normal 14.0-16.8 (g/dL) Final HCT 06/12/2023 08:08:30 25.9 Below low normal 40.0-48.4 (%) Final MCV 06/12/2023 08:08:30 100.0 82.0-99.5 (fL) Final MCH 06/12/2023 08:08:30 30.5 27.0-34.0 (pg) Final MCHC 06/12/2023 08:08:30 30.5 32.0-36.0 (g/dL) Final RDW 06/12/2023 08:08:30 16.2 11.5-15.5 (%) Final Platelets 06/12/2023 08:08:30 306 140-400 (K/uL) Final MPV 06/12/2023 08:08:30 9.1 6.6-11.1 (fL) Final Nucleated erythrocytes/100 leukocytes [Ratio] in Blood by Automated count 06/12/2023 08:08:30 0 <=0 (/100 WBCs) Final Performing Location LABORATORY C - [address] [facility] [address]
--- OUTSIDE RECORDS SUMMARY | 2023-07-01 20:40 | External Medical Summary ---
Author Name Unknown Address Unknown Organization K01:[place]ORY [facility] [place] - [address] [facility] [place] [address] Laboratory Report Ordering Provider Test Date Status MARLENE SANCHEZ 06/12/2023 08:08:30 Final Observation Date Value Abnormality Reference (Units ) Status SYNC LEUKOCYTES IN BLOOD BY AUTOMATED COUNT 06/12/2023 08:08:30 8.43 4.00-10.80 (K/uL) Final Segs 06/12/2023 08:08:30 63.9 40.0-75.0 (%) Final Lymphs % 06/12/2023 08:08:30 22.7 18.0-42.0 (%) Final Monos 06/12/2023 08:08:30 10.0 1.0-11.0 (%) Final Eosinophils 06/12/2023 08:08:30 2.4 0.0-6.0 (%) Final Basos 06/12/2023 08:08:30 0.4 0.0-2.0 (%) Final Immature Granulocyte, Percent 06/12/2023 08:08:30 0.6 0.0-2.0 (%) Final Absolute Segs 06/12/2023 08:08:30 5.40 1.80-7.70 (K/uL) Final Lymphs, absolute 06/12/2023 08:08:30 1.91 1.00-4.80 (K/ul) Final Monos, Abs 06/12/2023 08:08:30 0.84 0.00-1.10 (K/uL) Final Eos, Abs 06/12/2023 08:08:30 0.20 0.00-0.70 (K/uL) Final Basos, Abs 06/12/2023 08:08:30 0.03 0.00-0.20 (K/uL) Final Immature Granulocytes, Number 06/12/2023 08:08:30 0.05 0.00-0.20 (K/uL) Final Performing Location LABORATORY [facility] [place] - [address] [facility] [address]
--- OUTSIDE RECORDS SUMMARY | 2023-07-01 20:41 | External Medical Summary | Summary of Care ---
Author Name Unknown Organization [facility] Address [address] [place] [address] Phone [phone] Care Team Providers Care Germ Drier Name Role Phone Robel Joe Ronnie NORMAN Primary Care Provider [phone] Reason for Visit * Reason Comments Short of Breath * Auth/Cert Specialty Diagnoses / Procedures Referred By Contac t Referred To Contact Referral ID Status Reason Start Date Expiration Date Visits Re quested Visits Authorized [id number] Encounter Details Date Type Department Care Team (Latest Contact Info) Description 05/26/2023 1:51 PM EST - 06/11/2023 1:34 PM EST Hospital Encounter [id number] [facility], [facility] 5th Floor [address], [place] [phone] Kamari Smith MD [address], [place] Judi Styles MD [address], [place] Carlos Deutsch DO [address] [facility] Hospitalist Services [place], [place] Viktoriya Ha, DO [address], [place] Daryl Puri MD [address], [place] Abimael De La Rosa [address] [place] [address] Diagnostic Clarification Discharge Disposition: Home - Self Care Allergies Active Allergy Reactions Criticality Noted Date Comments Sulfa Antibiotics Rash 11/02/2004 Rash documented as of this encounter (statuses as of 06/12/2023) Medications Medication Sig Dispensed Refills Start Date End Date Status Misc. Devices Cool mist humidification device Cool mist humidification device 1 Each 0 4 Active Misc. Devices Portable suction device. 1 Each 0 4 Active Misc. Devices Yankauer suction tips. 30 Each 4 Active Misc. Devices 6-0 Shiley 6UN75H (uncuffed). 4 Each 4 Active Misc. Devices 4-0 Shiley 4UN65H (uncuffed). 1 Each 0 4 Active Misc. Devices Inner cannulas for 6-0 Shiley (6IC75). 50 Each 4 Active Misc. Devices Trach care cleaning kit. 1 Each 0 4 Active Misc. Devices 12 Fr flexible suction catheters. 30 Each 4 Active Calcium Carbonate 600 MG Oral Tablet Take 1 Tablet by mouth 2 times a day with morning and evening meals. 90 Tablet 4 Active Ferrous Sulfate 325 (65 Fe) MG Oral Tablet (Feosol) Take 1 Tablet by mouth daily with breakfast. 90 Tablet 4 Active metFORMIN HCl 1000 MG Oral Tablet (Glucophage) Take 1 Tablet by mouth 2 times a day with morning and evening meals. 90 Tablet 4 Active Levothyroxine Sodium 75 MCG Oral Tablet (Levoxyl) Take 1 Tablet by mouth daily first thing in the morning. (at least 30 min prior to breakfast or other meds) 90 Tablet 4 Active Aspirin 81 MG Oral Tablet Chewable Administer 1 Tablet into G tube in the morning. Administer 1 Tablet into G tube in the morning.. 90 Tablet 4 Active Rosuvastatin Calcium 5 MG Oral Tablet (Crestor) Administer 1 Tablet into G tube in the morning. Administer 1 Tablet into G tube in the morning.. 90 Tablet 3 4 Active Acetaminophen 160 MG/5ML Oral Liquid (Tylenol) Administer 30.5 mL into G tube every 6 hours as needed for Pain, Moderate or Pain, Mild. Administer 30.5 mL into G tube every 6 hours as needed for Pain, Moderate or Pain, Mild. 118 mL 0 4 Active Chlorhexidine Gluconate 0.12 % Mouth/Throat Solution (Periogard) Apply 15 mL to inside of cheek in the morning and 15 mL in the evening. Apply 15 mL to inside of cheek in the morning and 15 mL in the evening.. 473 mL 0 4 Active Docusate Sodium 50 MG/5ML Oral Liquid (Colace) Administer 10 mL into G tube in the morning and 10 mL before bedtime. Administer 10 mL into G tube in the morning and 10 mL before bedtime.. 100 mL 0 4 Active Doxazosin Mesylate 2 MG Oral Tablet (Cardura) Administer 1 Tablet into G tube in the morning. Administer 10 mL into G tube in the morning and 10 mL before bedtime.. 90 Tablet 3 4 Active Nutren 1.5 Oral Liquid Administer 250 mL into feeding tube 5 times a day. Administer 250 mL into feeding tube 5 times a day. 68410 mL 3 4 Active omeprazole (PriLOSEC) 2 mg/mL oral suspension Administer 10 mL into G tube in the morning. Administer 10 mL into G tube in the morning.. 90 mL 3 4 Active Sennosides 8.6 MG Oral Tablet (Senokot) Administer 1 Tablet into G tube in the morning. Administer 1 Tablet into G tube in the morning.. 90 Tablet 3 4 Active Water For Irrigation, Sterile (FEED TUBE WATER) TF Administer 200 mL into G tube in the morning and 200 mL at noon and 200 mL before bedtime. Administer 200 mL into G tube in the morning and 200 mL at noon and 200 mL before bedtime.. 90 Each 3 4 Active Aspirin 81 MG Tablet Take 1 Tablet by mouth in the morning. 0 06/11/19 24 Discontinued MetFORMIN (GLUCOPHAGE) 1000 MG Tablet Take 1 Tablet by mouth 2 times a day with morning and evening meals. 0 06/11/19 24 Discontinued(Ref ill) rosuvastatin (CRESTOR) 10 MG Tablet Take 5 mg by mouth daily. 0 05/27/19 24 Discontinued(Med ication List Clean Up) levothyroxine (LEVOXYL) 75 MCG Tablet Take 1 Tablet by mouth daily first thing in the morning. (at least 30 min prior to breakfast or other meds) 0 06/11/19 Discontinued(Ref ill) amoxicillin (AMOXIL) 500 MG Capsule Take 2,000 mg by mouth as needed (takes prior to dental visits). 0 06/11/19 24 Discontinued pantoprazole (PROTONIX) 40 MG TBEC Take 1 Tablet by mouth in the morning. 0 06/11/19 Discontinued(Med ication/Dose Changed) ferrous sulfate (FEOSOL) 325 (65 FE) MG Tablet Take 1 Tablet by mouth daily with breakfast. 0 06/11/19 Discontinued(Ref ill) Tamsulosin HCl 0.4 MG Oral Capsule (Flomax) Take 1 Capsule by mouth in the morning. 0 06/11/19 Discontinued(Med ication/Dose Changed) Calcium Carbonate 600 MG Oral Tablet Take 1 Tablet by mouth 2 times a day with morning and evening meals. 0 06/11/19 24 Discontinued(Ref ill) Misc. Devices Cool mist humidification device 1 Each 0 4 05/30/19 24 Discontinued(Ref ill) Misc. Devices Portable suction device 1 Each 0 4 05/30/19 24 Discontinued(Ref ill) Misc. Devices Yankauer suction tips 30 Each 4 05/30/19 24 Discontinued(Ref ill) Misc. Devices 6-0 Shiley 6UN75H (uncuffed) 4 Each 5 4 05/30/19 24 Discontinued(Ref ill) Misc. Devices 4-0 Shiley 4UN65H (uncuffed) 1 Each 0 4 05/30/19 24 Discontinued(Ref ill) Misc. Devices Inner cannulas for 6-0 Shiley (6IC75) 50 Each 5 4 05/30/19 24 Discontinued(Ref ill) Misc. Devices Trach care cleaning kit 1 Each 0 4 05/30/19 24 Discontinued(Ref ill) Misc. Devices 12 Fr flexible suction catheters 30 Each 5 4 05/30/19 24 Discontinued(Ref ill) Aspirin 81 MG Oral Tablet Chewable Administer 1 Tablet into G tube in the morning. 90 Tablet 3 4 06/11/19 24 Discontinued(Ref ill) Rosuvastatin Calcium 5 MG Oral Tablet (Crestor) Administer 1 Tablet into G tube in the morning. 90 Tablet 3 4 06/11/19 Discontinued(Ref ill) Chlorhexidine Gluconate 0.12 % Mouth/Throat Solution (Periogard) Apply 15 mL to inside of cheek tiece daily (morning, evening). 473 mL 0 4 06/11/19 Discontinued(Ref ill) Acetaminophen 160 MG/5ML Oral Liquid (Tylenol) Administer 30.5 mL into G tube every 6 hours as needed for mild or moderate pain. 118 mL 0 4 06/11/19 Discontinued(Ref ill) Docusate Sodium 50 MG/5ML Oral Liquid (Colace) Administer 10 mL into G tube twice daily (morning, before bedtime). 100 mL 0 4 06/11/19 Discontinued(Ref ill) Doxazosin Mesylate 2 MG Oral Tablet (Cardura) Administer 1 Tablet into G tube in the morning. 90 Tablet 3 4 06/11/19 Discontinued(Ref ill) Water For Irrigation, Sterile (FEED TUBE WATER) TF Administer 200 mL into G tube in the morning and 200 mL at noon and 200 mL before bedtime. 90 Each 3 4 06/11/19 Discontinued(Ref ill) Nutren 1.5 Oral Liquid Administer 250 mL into feeding tube 5 times a day. 90098 mL 4 06/11/19 Discontinued(Ref ill) omeprazole (PriLOSEC) 2 mg/mL oral suspension Administer 10 mL into G tube in the morning. 90 mL 3 4 06/11/19 Discontinued(Ref ill) Polyethylene Glycol 3350 17 GM/SCOOP Oral Powder (Miralax) administer 1 packet into the g-tube in the morning. 119 g 0 4 06/11/19 24 Discontinued Sennosides 8.6 MG Oral Tablet (Senokot) Administer 1 Tablet into G tube in the morning. 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 12/21/2019 Dyslipidemia, goal [...] as of this encounter (statuses as of 06/12/2023) Social History Tobacco Use Types Packs/Day Years Used Date Smoking Tobacco: Former Cigarettes 1 30 Q uit: 1969 Smokeless Tobacco: Former Chew Quit: 2004 Alcohol [...] on file documented as of this encounter Last Filed Vital Signs Vital Sign Reading Time Taken Comments Blood Pressure 124/61 06/11/2023 11:31 AM EST Pulse 67 06/11/2023 11:31 AM EST Temperature 36.8 C (98.2 F) 06/11/2023 1 1:31 AM EST Respiratory Rate 16 06/11/2023 11:3 1 AM EST Oxygen Saturation 95% 06/11/2023 11: 31 AM EST Inhaled Oxygen Concentration - - Weight 67.5 kg (148 lb 12.8 oz) 06/11/2023 5:58 AM EST Height 177.8 cm (5' 10") 06/11/2023 5:58 AM EST Body Mass Index 21.35 06/11/2023 5:58 AM EST documented in this encounter Discharge Instructions * Discharge Instr - AVS* Virginia Solano MD - 06/09/2023 4:20 PM EST Postoperative instructions: -Limit activity for 2 weeks. No strenuous activity such as running, hiking, biking, swimming, playing sports or any other activity that may increase your heart rate or blood pressure. You must avoid swimming, and bathe in a manner where you do not get water in the tracheostomy opening. - Keep humidification over the trach at all times when sitting down/resting. - Change the inner cannula at least two times per day and as needed. - Suction the trach 2-3 times per day or more often if you are having heavy secretions - Okay to use speaking valve during the day. Do not sleep with speaking valve on. - It is okay to shower. Avoid getting water directly on the trach or down the tube. Face away from the shower head. Do not immerse the tracheostomy tube in water. - If the tracheostomy tube falls out, attempt to put it back in. If the # 6 trach is unable to get back in easily, you can place the back up emergency #5 trach. If you cannot get either in, or if youhave difficulty while placing it, call the ENT department or come to your nearest emergency room. If you are in any distress, call an ambulance. -If your trach gets plugged. Remove the inner cannula and replace it. It this does not improve the blockage, remove the entire trach and come to the nearest emergency room to have it replaced. - Call [phone] and ask for ENT on-call for any bleeding from the throat, worsening pain not controlled by medications, inability to take oral nutrition, or persistent fever over 101 F. An intermittent fever to 101 F is normal after surgery for 2-3 days POSTOPERATIVE INSTRUCTIONS FOR DIRECT LARYNGOSCOPY - You may spit up blood tinged secretions. This is normal and expected. Please call for any significant bleeding from the throat, worsening pain not controlled by medications, or inability to take oral nutrition. - Call for any difficulty breathing, chest pain or shortness of breath. If you are in distress, please go directly to an emergency room. - Diet as tolerated. - Over the counter tylenol should be sufficient for pain relief Warnings: Call your surgeon promptly in case of: A. Excessive bleeding B. Fever greater than 101 degrees F (38.3 degrees centigrade) C. Persistent nausea and vomiting D. Redness, swelling or pus-like drainage E. Pain that is not relieved by the medicine you were told to take documented in this encounter Progress Notes * Lydia Mccullough CRNP - 06/09/2023 6:40 AM EST PROGRESS NOTE - Otolaryngology [facility]-[address] [address] Name: Farhad Dash Jr. Location: [facility] B528/A Date: 06/09/2023 Time: 6:40 AM SUBJECTIVE: No issues overnight Start Quad shot today OBJECTIVE: Most Recent Vital Signs: BP: 96 mmHg/62 mmHg (06/09/23637) Pulse: 82 (06/09/23637) Temp: 37.22 C (06/09/23637) Resp: 18 (06/09/23637) SpO2: 96 % (06/09/23637) Vital Signs Last 24 Hours: Systolic BP: Most Recent Systolic BP Av.3 mmHg Min: 82 mmHg Max: 102 mmHg Temperature: Most Recent Temperature Av.9 C Min: 36.61 C Max: 37.22 C Pulse: Pulse Av.2 Min: 72 Max: 93 Respirations: Resp Av.7 Min: 18 Max: 20 SpO2: SpO2 Av.7 % Min: 95 % Max: 99 % PHYSICAL EXAMINATION: Resting in bed On trach collar Shiley 6UN75H trach in good position secured with trach ties and sutures, minimal peristomal secretions IMAGING: CT Neck 05/26: IMPRESSION 1. Mucosal irregularity with soft tissue thickening and enhancement involving the right piriform sinus and right arytenoepiglottic fold. Findings are nonspecific, and correlation with laryngoscopy findings is recommended. Asymmetric medial position of the right arytenoid cartilage may be secondary to vocal cord dysfunction. 2. 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 3. No suspicious cervical lymphadenopathy is identified. 4. Advanced atherosclerosis with severe stenosis of the right internal carotid artery. 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 Now s/p direct laryngoscopy, esophagoscopy and biopsy; tracheotomy on05/28/[address] De La Rosa. First trach change performed 06/03/2023. Plan for quad shot radiation therapy on 06/09/23 to 06/10/23. PLAN: - suction q4h, more often as needed - transition tube feeds to bolus tube feeds - Suction only the length of the inner cannula and ask the patient to cough (if able) to reduce likelihood of trauma to the tracheal mucosa - Change inner cannula BID, more often as needed - Clean trach site PRN - Have obturator, spare (Shiley 6UN75H), and downsize (Shiley 4UN65H) trachs at bedside - Humidification via trach collar - PROFESSIONAL DRIVER medications - Lovenox daily - Plan for quad shot radiation therapy on 06/09/23 with radiation oncology team - Dispo: pending rehab placement based on PM&R recommendations and completion of Quad shot. Patient to be discussed with Dr. De La Rosa. CANDIDA Brody 06/09/2023 * Daryl Puri MD - 06/08/2023 9:40 AM EST PROGRESS NOTE - Otolaryngology [facility]-[address] [address] Name: Farhad Dash Jr. Location: [facility] B528/A Date: 06/08/2023 Time: 9:40 AM SUBJECTIVE: No issues overnight Jenkins was replaced with assistance of urology team Plan for quad shot radiation therapy on 06/09/23 OBJECTIVE: Most Recent Vital Signs: BP: 112 mmHg/78 mmHg (06/08/23613) Pulse: 59 (06/08/23613) Temp: 36.78 C (06/08/23613) Resp: 17 (06/08/23613) SpO2: 98 % (06/08/23613) Vital Signs Last 24 Hours: Systolic BP: Most Recent Systolic BP Av.8 mmHg Min: 97 mmHg Max: 118 mmHg Temperature: Most Recent Temperature Av.8 C Min: 36.39 C Max: 37.22 C Pulse: Pulse Av.3 Min: 59 Max: 86 Respirations: Resp Av.3 Min: 16 Max: 17 SpO2: SpO2 Av.3 % Min: 92 % Max: 99 % PHYSICAL EXAMINATION: Resting in bed On trach collar Shiley 6UN75H trach in good position secured with trach ties and sutures, minimal peristomal secretions IMAGING: CT Neck 05/26: IMPRESSION 1. Mucosal irregularity with soft tissue thickening and enhancement involving the right piriform sinus and right arytenoepiglottic fold. Findings are nonspecific, and correlation with laryngoscopy findings is recommended. Asymmetric medial position of the right arytenoid cartilage may be secondary to vocal cord dysfunction. 2. 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 3. No suspicious cervical lymphadenopathy is identified. 4. Advanced atherosclerosis with severe stenosis of the right internal carotid artery. 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 Now s/p direct laryngoscopy, esophagoscopy and biopsy; tracheotomy on05/28/[address] De La Rosa. First trach change performed 06/03/2023. Plan for quad shot radiation therapy on 06/09/23 to 06/10/23. PLAN: - suction q4h, more often as needed - transition tube feeds to bolus tube feeds - Suction only the length of the inner cannula and ask the patient to cough (if able) to reduce likelihood of trauma to the tracheal mucosa - Change inner cannula BID, more often as needed - Clean trach site PRN - Have obturator, spare (Shiley 6UN75H), and downsize (Shiley 4UN65H) trachs at bedside - Humidification via trach collar - PROFESSIONAL DRIVER medications - Lovenox daily - Plan for quad shot radiation therapy on 06/09/23 with radiation oncology team - Dispo: pending rehab placement based on PM&R recommendations. Patient was examined and discussed with Dr. Puri. Eliza Guthrie DO Otolaryngology - Head & Neck Surgery Resident 06/08/2023 9:45 AM ENT Staff Note Attending Attestation: I have discussed the patient's management with the medical trainee and agree with the note. Please refer to the documented findings and plan of care. The patient's bedside service today consisted of an evaluation. I was present and confirmed the findings of the history and exam. Daryl Puri MD BP5T [facility] 5th Floor [address] [facility] [address] * South Patel RN - 06/07/2023 3:15 PM EST Nursing Critical Care Response Note [address] [address] Name: Farhad Dash Jr. Date: 06/07/2023 Time: 4:06 PM Event Location: [facility], Unit Area: [facility] In the role of the Critical Response Nurse I was involved in the care of this patient. Method of notification to the critical care response nurse: Unit call/request for assistance Reason for notification or follow up: Difficult indwelling catheter placement Observations/Interventions/Assessment: Called to place jenkins for pt having clots. An 18 Fr latex coude catheter was inserted to the hub with no resistance and immediate return of clear yellow urine totaling 700mls. The balloon was inflated with 30mls of sterile water and the catheter was secured to the pt. Outcome/Plan Pt tolerated well. Bedside nurse in room to assist. CRN can be contacted via [employer] Text: [facility] Critical Response Nurse. * Daryl Puri MD - 06/07/2023 10:33 AM EST PROGRESS NOTE - Otolaryngology [facility]-[address] [address] Name: Farhad Dash Jr. Location: [facility] B528/A Date: 06/07/2023 Time: 10:33 AM SUBJECTIVE: Resting comfortably this morning. Awake and interactive. No concerns with Trach Tolerating tube feeds at 50cc/hr OBJECTIVE: Most Recent Vital Signs: BP: 101 mmHg/49 mmHg (06/07/23937) Pulse: 87 (06/07/23937) Temp: 36.72 C (06/07/23699) Resp: 16 (06/07/23699) SpO2: 95 % (06/07/23699) Vital Signs Last 24 Hours: Systolic BP: Most Recent Systolic BP Av.3 mmHg Min: 101 mmHg Max: 126 mmHg Temperature: Most Recent Temperature Av.9 C Min: 36.5 C Max: 37.5 C Pulse: Pulse Av.9 Min: 78 Max: 88 Respirations: Resp Av.6 Min: 13 Max: 19 SpO2: SpO2 Av.6 % Min: 95 % Max: 100 % PHYSICAL EXAMINATION: Resting peacefully in bed On trach collar Shiley 6UN75H trach in good position secured with trach ties and sutures, minimal peristomal secretions IMAGING: CT Neck 05/26: IMPRESSION 1. Mucosal irregularity with soft tissue thickening and enhancement involving the right piriform sinus and right arytenoepiglottic fold. Findings are nonspecific, and correlation with laryngoscopy findings is recommended. Asymmetric medial position of the right arytenoid cartilage may be secondary to vocal cord dysfunction. 2. 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 3. No suspicious cervical lymphadenopathy is identified. 4. Advanced atherosclerosis with severe stenosis of the right internal carotid artery. 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 Now s/p direct laryngoscopy, esophagoscopy and biopsy; tracheotomy on05/28/[address] De La Rosa. First trach change performed 06/03/2023. At this point he is not interested in surgery. The night of 06/05, the trach dislodged and a new trach was placed without difficulty. Patient will be advanced to goal tube feeds as tolerated and will tentatively start radiation treatments next week. PLAN: - suction q4h, more often as needed - ONLY IF CONCERN FOR PLUGGING: Saline bullets 2-3cc of normal saline with suctioning 1 to 2 times per day as needed based on crusting in the inner cannula - Suction only the length of the inner cannula and ask the patient to cough (if able) to reduce likelihood of trauma to the tracheal mucosa - Change inner cannula BID, more often as needed - Clean trach site PRN - Have obturator, spare (Shiley 6UN75H), and downsize (Shiley 4UN65H) trachs at bedside - Humidification via trach collar when off ventilator, ongoing - Cuff down if off ventilator to protect tracheal mucosa - DO NOT change trach ties or cut sutures until 1st trach change - remainder of care per primary team Patient was examined and discussed with Dr. Puri. Harley Lane MD 06/07/2023 10:38 AM ENT Staff Note Attending Attestation: I have discussed the patient's management with the medical trainee and agree with the note. Please refer to the documented findings and plan of care. The patient's bedside service today consisted of an evaluation. I was present and confirmed the findings of the history and exam. Daryl Puri MD BP5T [facility] 5th Floor [address] [facility] [address] * Angy Sierra DO - 06/06/2023 6:02 PM EST PROGRESS NOTE - Critical Care [place] [facility]-[address] [address] Name: Farhad Dash Jr. 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 Recently admitted for COVID and pseudomonas UTI at [facility]. He has had persistent dysphonia anddysphagia and has G tube for enteral nutrition. Denies odynophagia. No CP. Has mild dyspnea. 24H EVENTS OF NOTE: Trach dislodged overnight but quickly replaced, from unintentional accident, not anatomical issue. Straight cath X 2 for urinary retention of approximately 400cc's each time. Otherwise, patient remained hemodynamically stable and afebrile. Offers no complaints and was resting comfortable in bed. Nonew oxygen requirements, remains on 5L humidified trach. Sleep protocol in place. Remains on tube feeds. Had 1 bowel movement yesterday and 2 today. Last Bowel Movement: 06/06/23 Stool Description: Medium, Liquid, Loose, Brown Lab results within last 7 days (see chart for full results) Units 06/06/23 0438 06/05/23 0447 06/04/23 0434 HGB g/dL 7.6* 8.1* 7.7* HCT % 24.4* 26.3* 25.2* WBC K/uL 7.91 8.39 6.29 PLT K/uL 205 200 173 Lab results within last 7 days (see chart for full results) Units 06/06/23 0438 06/05/23 0447 06/04/23 0434 Sodium mmol/L 135 136 133* Potassium mmol/L 4.7 4.7 4.4 Chloride mmol/L 100 101 100 CO2 mmol/L 28 29 27 BUN mg/dL 18 20 17 Creatinine mg/dL 0.6 0.6 0.6 PAST MEDICAL HISTORY: Past Medical History: Diagnosis Date Diabetes mellitus (HCC) GERD (gastroesophageal reflux disease) History of cancer of larynx Hyperlipidemia Hypertension Myocardial infarction (HCC) PAST SURGICAL HISTORY: Past Surgical History: Procedure Laterality Date CORONARY ARTERY BYPASS, SINGLE EGD, FLEXIBLE,W/ENDOSCOPIC US 07/30/2019 sludge, ascites / [facility] ERCP 10/22/2019 stent removed / [facility] ERCP 07/30/2019 benign biliary papillary stenosis, stent placed / [facility] INCISION OF [place], PLANNED N/A 05/28/2023 TRACHEOSTOMY PLANNED performed by Abimael De La Rosa DO at OR [facility] LARYNGOSCOPY/DILATION N/A 05/28/2023 LARYNGOSCOPY DIRECT DILATION INITIAL performed by Abimael De La Rosa DO at OR [facility] REMOVE CATARACT, INSERT LENS PROSTH Right 06/27/2020 RIGHT EXTRACAPSULAR CATARACT REMOVAL WITH INTRAOCULAR LENS performed by Mason Hassan MD at [facility] REMOVE CATARACT, INSERT LENS PROSTH Left 07/11/2020 LEFT EXTRACAPSULAR CATARACT REMOVAL WITH INTRAOCULAR LENS performed by Mason Hassan MD at OR [facility] TOTAL HIP REPLACEMENT & PROSTHESIS Bilateral FAMILY HISTORY: Family History Problem Relation Age of Onset Hypertension Father SOCIAL HISTORY: Social History Tobacco Use Smoking status: Former Packs/day: 1.00 Years: 30.00 Additional pack years: 0.00 Total pack years: 30.00 Types: Cigarettes Quit date: 1969 Years since quittin.0 Smokeless tobacco: Former Types: Chew Quit date: 2004 Substance Use Topics Alcohol use: Not Currently Drug use: Never PRIOR TO ADMISSION MEDS: Current Outpatient Medications Medication Instructions Amoxicillin (AMOXIL) 2,000 mg, PRN Aspirin 81 mg, Oral, Daily(AM) Calcium Carbonate (CALCIUM-CARB 600) 600 mg, Oral, BID (AM/PM MEALS) Ferrous Sulfate (FEOSOL) 325 mg, Oral, BREAKFAST levothyroxine (LEVOXYL) 75 mcg, Oral, [id number], (at least 30 min prior to breakfast or other meds) MetFORMIN (GLUCOPHAGE) 1,000 mg, Oral, BID (AM/PM MEALS) pantoprazole (PROTONIX) 40 mg, Oral, Daily(AM) rosuvastatin (CRESTOR) 5 mg, Daily(AM) tamsulosin (FLOMAX) 0.4 mg, Oral, Daily(AM) ALLERGIES: Sulfa [sulfa antibiotics] CONSTITUTIONAL DATA / OBJECTIVE: Vital Signs (Most Recent): Pulse: 88 (06/06/23 1640) BP: 125/66 (06/06/23 1640) Resp: 18 (06/06/23 1640) Temp: 36.5 C (97.7 F) (06/06/23 1640) SpO2: 97 % (06/06/23 1640) Vital Signs (Last 24 Hours): Pulse Av.5 Min: 76 Max: 88 No data recorded Most Recent Systolic BP Av.1 mmHg Min: 93 mmHg Max: 137 mmHg Most Recent Diastolic BP Av.3 mmHg Min: 45 mmHg Max: 81 mmHg Resp Av.8 Min: 13 Max: 22 Most Recent Temperature Av.6 C Min: 36.39 C Max: 36.78 C SpO2 Av.7 % Min: 92 % Max: 100 % Physical Examination: Constitutional: no acute distress Head: normocephalic, atraumatic. Ears, nose, throat: moist mucous membranes, no nasal discharge, no swelling of neck, hoarse, with expiratory wheeze and stridor.; tracheostomy in place Chest wall: no chest wall tenderness or deformity. Cardiovascular: normal rate Pulmonary: symmetric chest rise, trachea midline, ,mild respiratory distress. Abdomen: soft, non-distended, G tube in place. Genitourinary: some blood at urethral meatus and jenkins with pink urine Skin: warm, dry. Intake & Output Summary (Last 24 hours): Intake/Output Summary (Last 24 hours) at 06/06/2023 1802 Last data filed at 06/06/2023 1400 Gross per 24 hour Intake 1490 ml Output 700 ml Net 790 ml Laboratory Values: CBC Lab results within last 7 days (see chart for full results) Units 06/06/23 0438 06/05/237 06/04/23 043 WBC K/uL 7.91 8.39 6.29 HGB g/dL 7.6* 8.1* 7.7* HCT % 24.4* 26.3* 25.2* PLT K/uL 205 200 173 BMP Lab results within last 7 days (see chart for full results) Units 06/06/23 0438 06/05/23 0447 06/04/23 043 Sodium mmol/L 135 136 133* Potassium mmol/L 4.7 4.7 4.4 Chloride mmol/L 100 101 100 CO2 mmol/L 28 29 27 BUN mg/dL 18 20 17 Creatinine mg/dL 0.6 0.6 0.6 Glucose mg/dL 217* 220* 278* Ca, Mg, Phos Lab results within last 7 days (see chart for full results) Units 06/06/23 0438 06/05/23 0447 06/04/23 0434 Calcium mg/dL 8.4 8.2* 7.9* Magnesium mg/dL 2.1 2.0 2.1 Phosphorus mg/dL 3.5 2.4* 2.7 Lactic acid No results in the last 7 days - inpatent use only Arterial Blood Gas No results in the last 7 days - inpatent use only Radiographic Studies: No imaging results in the last 24 hours Cultures: not applicable as of Recent Cultures (2 Weeks) 05/26/2023 05/26/2023 3:30 PM 3:26 PM BLOOD CULTURE GROWTH No growth No growth Assessment & Plan Principal Problem: Stridor (POA: Yes) Active Problems: Difficult airway for intubation (POA: Yes) Laryngeal mass (POA: Yes) Severe protein-energy malnutrition (HCC) (POA: Yes) Benign essential hypertension (POA: Yes) Carotid stenosis (POA: Yes) Overview: Last Assessment & Plan: I had [...] should go to the emergency room immediately. 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 (POA: Yes) Dyslipidemia, goal LDL below 70 (POA: Yes) Gastroesophageal reflux disease (POA: Yes) Hypothyroidism (POA: Yes) Paroxysmal atrial fibrillation (HCC) (POA: Yes) Type 2 diabetes mellitus without complication (HCC) (POA: Yes) Vocal cord dysfunction (POA: Yes) Tracheostomy status (HCC) (POA: No) Urinary retention (POA: Yes) Impaired mobility and ADLs (POA: Unknown) Goals of care, counseling/discussion (POA: Unknown) Palliative care encounter (POA: Unknown) Other insomnia (POA: Unknown) Constipation (POA: Unknown) Head and neck cancer (HCC) (POA: Unknown) Adjustment disorder with depressed mood (POA: Unknown) POA = Present On Admission SYSTEMS BASED PLAN: NEURO: No active issues - Pain control - Tylenol 650mg q6H via G tube ICU psych following for recent disclosure of recurrent SCC Sleep protocol initiated 06/05. Melatonin 1mg qHS added CARDIAC / VASCULAR: History of HTN History of HLD History of CAD / TX -Prior CABG 11/04/2017 CABG x2 with PEREYRA to LAD and vein graft to PDA. Patient also had clipping of the left atrial appendage -11/21/2009 PCI of proximal RCA with 3.5 x 23 Xience drug-eluting stent. 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 Dx disclosed to patient on 06/03 by ENT team. - humidified trach collar - inner cannula change BID - Aggressive Pulmonary toilet GI / HEPATOBILIARY: GERD Antireflux precautions G tube - Bowel regimen senna, colace via G tube, added miralax on 06/01 - PPI via G tube - Nutren 1.5 @ 50cc/hr for 24 hrs. 200cc TID free water flushes Last Bowel Movement: 06/06/23 Stool Description: Medium, Liquid, Loose, Brown RENAL / METABOLIC / FLUIDS: Urinary retention with recent UTI w/ pseudomonas BPH -had jenkins from OSH -holding PROFESSIONAL DRIVER Flomax 0.4mg daily, convert to doxazosin 2mg via G tube -has failed SC protocol and replacing jenkins on 06/01 for 48H protocol Hypophosphatemia Replete with phos snak Pend electrolytes Jenkins status Removed 06/05, follow up with straight caths HEMATOLOGIC: Lovenox and SCDs for DVT ppx INFECTIOUS DISEASES: UTI sepsis with Pseudomonas Apr 2023 Tuberculosis history - zosyn started 05/26/2023, switched to unasyn on 05/27/23 until 06/01/23 - U/A negative - MRSA negative - quantiferon gold negative ENDOCRINE: T2DM -holding PROFESSIONAL DRIVER Metformin - BG 250's this AM. Endocrine consulted Continue lantus 10 units hs Novolog: Will give 1 unit for every 25 cc/hr Q4h Adjusted TF to 50 cc/hr over 24 hrs with 200ml TID free water flushes Hypothyroidism -PROFESSIONAL DRIVER levoxyl 75mcg daily via G tube MUSCULOSKELETAL / DERM: No active issues P.T./O.T. / MOBILITY / WOUND CARE: PT/OT consult after OR PM&R consult LINES / DRAINS / TUBES: LINES ALL Duration Gastrostomy/Enterostomy Gastrostomy-jejunostomy LUQ -- days Peripheral Line Left Antecubital 18 Gauge -- days Airway Neck Trach 9 days GLOBAL ISSUES: Code Status: Limited Code Analgesia: well controlled Nutrition: Tube feeds DVT Prophylaxis: chemoprophylaxis with pneumatic compression devices Stress Ulcer Prophylaxis: Histamine 2 Receptor Re. Glycemic Control: well controlled Disposition: transfer to floor Patient's decisional capacity: has capacity to make decisions Communication with Patient/Family: Brief Family Communication. Patient/Family participation: Patient and Spouse/Partner. Goals of Care: wean respiratory parameters, stabilize hemodynamic status, and decrease pain and discomfort Patient was seen and discussed on rounds with Dr. Viktoriya Ha. Angy Sierra DO PGY4 Critical Care Medicine Associated attestation - Viktoriya Ha DO - 06/07/2023 7:23 AM EST I have discussed the patient's management with the resident/fellow physician and/or advanced practice provider and agree with the note excepting the changes below. Please refer to the documented findings and plan of care. The patient's service consisted of an evaluation. I have seen and evaluated the patient. This is a late entry for date of service 06/06/23 at 12PM. Multidisciplinary discussion including ENT, palliative, medical/radiation oncology ongoing regarding patient's plan of care for recurrent laryngeal SCC. Patient clinically remains stable. Will resumeLantus given hyperglycemia. Patient remains medically stable for transfer to med-surg floor under ENT service. Viktoriya Ha DO, MS, FACOS Trauma and Acute Care Surgery Surgical Critical Care * Vaishali Doll RN - 06/06/2023 11:17 AM EST Wound / Ostomy Nurse Progress Note Recommendations: Continue zinc moisture barrier cream to right buttocks wound Q shift and prn with cleansing, consider alternating with no sting barrier film Turn and reposition Q 2 hours Limit time sitting to < 2 hours at a time; utilize waffle/bubble cushion while sitting Heel elevation off mattress at all times -utilize offloading heel boots as needed Call with changes in wound appearance or new concerns. Length of Stay: 11 days Current Skin Wound Care: static pressure redistribution mattress, moisture wicking pads, heel elevation, barrier cream, turn and reposition, and pillows Wound Assessment: Awake, alert, on [place] low air loss mattress. Reports sacral wound is tender. Wound appearance unchanged. Discussed use of foam as an option, Farhad would prefer to continue with barrier cream. Alteration in Skin Integrity Pressure Injury Coccyx/Sacrum (Active) Incision Dressing Open to air 06/05/23 2000 Wound Dressings Open to air 06/06/23 1100 Incision/Wound Treatment Zinc oxide-based moisture barrier cream 06/06/23 1100 Measurement (in cm) (LxWxD) Wound Only 0.75x0.5x0.2 06/06/23 1100 Wound bed appearance Angostura;Yellow 06/06/23 1100 Pressure Injury Stage 2 (present on admission) 05/27/23 1000 Drainage none 06/06/23 1100 Odor (after cleansing wound) No 06/06/23 0800 Kristin-Wound (Surrounding Skin) Erythematous;Tender (blanchable) 06/06/23 1100 Number of days: 11 Alteration in Skin Integrity Medial;Upper Back (Active) Incision Dressing Dressing intact 06/05/23 2000 Wound Dressings Foam (allevyn, mepilex, petey AMD) 06/06/23 1100 Incision/Wound Treatment Cleansed (CHG) 06/01/23 2000 Wound bed appearance Angostura (? scar tissue, irregular shaped does not appear pressure related) 06/06/23 1100 Drainage none 06/06/23 0800 Odor (after cleansing wound) No 06/06/23 0800 Kristin-Wound (Surrounding Skin) Intact 06/06/23 0800 Wound Care Done By Wound Ostomy Certified Nurse, see progress note 05/31/231999 Number of days: 6 Disclaimer: Flowsheets are auto-populated from the most recent entries in the patient's EHR. All others are to be interpreted as last entries by other unassociated staff and may not be representativeof the clinician's overall evaluation. (Flowsheet entered at 1100.) * Angelito Bennett MD - 06/06/2023 8:10 AM EST PROGRESS NOTE - Palliative Medicine [facility]-[address] [address] Name: Farhad Dash Jr. Location: [facility] A459/A Date: 06/06/2023 Time: 8:10 AM SUBJECTIVE: He feels relatively comfortable. No pain. No shortness of breath. He has not walked. No constipation. No nausea or vomiting. Current Facility-Administered Medications: feed tube water flush 200 mL, 200 mL, G Tube, TID(AM/NOON/HS), Mikayla Johnson MD, 200 mL at 600 insulin aspart (NovoLOG) inj, , Subcutaneous, Q6H, Mikayla Johnson MD, 6 Units at 06/06/23 0548 melatonin tab 1 mg, 1 mg, Oral, HS, Mikayla Johnson MD, 1 mg at 06/05/23 2123 Nutren 1.5 liquid, 50 mL/hr, Tube feed, Continuous, Mikayla Johnson MD, Last Rate: 50 mL/hr at 06/06/23 0415, 50 mL/hr at 06/06/23 0415 aspirin chew tab 81 mg, 81 mg, G Tube, Daily(AM), Vipul Mcdonald, DO, 81 mg at 06/06/23 0751 dextrose 50 % inj 25 mL, 25 mL, IV Push, PRN, Warner Michael MD dextrose 50 % inj 50 mL, 50 mL, IV Push, PRN, Warner Michael MD glucagon (Glucagen) inj 1 mg, 1 mg, Intramuscular, PRN, Warner Michael MD Glucose (Glutose 15) 40 % gel 15 g of glucose, 15 g of glucose, Oral, PRN, Warner Michael MD Glucose (Glutose 15) 40 % gel 30 g of glucose, 30 g of glucose, Oral, PRN, Warner Michael MD glucose chew tab 16 g, 16 g, Oral, PRN, Warner Michael MD levothyroxine (Levoxyl) tab 75 mcg, 75 mcg, G Tube, Daily 1000, Warner Michael MD, 75 mcg at06/05/23 1029 Polyethylene Glycol 3350 (Miralax) oral powder 17 g, 1 Packet, G Tube, Daily(AM), Warner Michael MD, 17 g at 06/06/23 0751 Acetaminophen (Tylenol) 160 MG/5ML oral liquid 975 mg, 975 mg, G Tube, Q6H PRN, Isreal Anderson DO, 975 mg at 06/06/23 0751 Enoxaparin (Lovenox) inj 40 mg, 40 mg, Subcutaneous, Daily(AM), ClouserIsreal, DO, 40 mg at 06/05/23 0812 omeprazole (PriLOSEC) oral susp 20 mg, 20 mg, G Tube, Daily(AM), ClouserIsreal, DO, 20 mg at06/06/23 0751 doxazosin (Cardura) tab 2 mg, 2 mg, G Tube, Daily(AM), Warner Michael MD, 2 mg at 06/06/23 0751 chlorHEXIDINE (Periogard) 0.12 % oral rinse 15 mL, 15 mL, Oral mucosal membrane, BID (0800,1999), Warner Michael MD, 15 mL at 06/06/23 0751 Docusate Sodium (Colace) oral liquid 100 mg, 100 mg, G Tube, BID(AM/PM), Warner Michael MD, 100 mg at 06/06/23 0751 Oral Hygiene: Mouth Swab with dentifrice, , Oral, Q4H Limited (00;04;12;16), Warner Michael MD, Given at 06/06/23 0345 oxygen GAS, , Inhalation, Oxygen, Warner Michael MD, Oxygen On at 06/06/23 0800 racepinephrine 2.25 % inhalation solution 5.625 mg, 0.25 mL, Nebulizer, Q1H PRN, Cholo Causey DO rosuvastatin (Crestor) tab 5 mg, 5 mg, G Tube, Daily(AM), Warner Michael MD, 5 mg at 06/06/23 0751 senna (Senokot) 1 Tablet, 1 Tablet, G Tube, Daily(AM), Warner Michael MD, 1 Tablet at 06/06/23 0751 sodium chloride 0.9 % flush peripheral norman 3 mL, 3 mL, IV Push, Q8H, Warner Michael MD, 3 mLat 06/06/23 0545 Medications as needed in the last 24 hours: Acetaminophen 975 mg every 6 hours for pain times 1 OBJECTIVE: Most Recent Vital Signs: BP: 135 mmHg/69 mmHg (06/06/23799) Pulse: 85 (06/06/23799) Temp: 36.5 C (06/06/23799) Resp: 19 (06/06/23799) SpO2: 98 % (06/06/23799) Vital Signs Last 24 Hours: Systolic BP: Most Recent Systolic BP Av.8 mmHg Min: 93 mmHg Max: 137 mmHg Temperature: Most Recent Temperature Av.7 C Min: 36.5 C Max: 36.89 C Pulse: Pulse Av.4 Min: 77 Max: 92 Respirations: Resp Av.5 Min: 13 Max: 30 SpO2: SpO2 Av % Min: 90 % Max: 100 % Constitutional: no acute distress, (+) chronically ill, (+) cachectic Chest: normal respiratory effort, trach Neuro: alert Psych: normal mood and affect LABS REVIEWED: yes, reviewed IMAGING REVIEWED: no Hemoglobin Results: Lab Results Component Value Date/Time [facility] - [facility] 7.6 (L) 06/06/2023 04:38 AM [facility] - [facility] 8.1 (L) 06/05/2023 04:47 AM [facility] - [facility] 7.7 (L) 06/04/2023 04:34 AM [facility] - [facility] 11.9 (L) 12/29/2017 02:34 PM Video swallow test 06/05/2023: 1. Aspiration observed with thin, mildly-thick, and moderately-thick liquids. 2. Please see the full speech pathologist report for complete evaluation. 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 He has a recent admission for COVID and Pseudomonas infection. He underwent placement of a tracheostomy on 05/28/2023 and he underwent a biopsy of a mass that is consistent with squamous cell carcinoma. There was a tumor board (see above for details) that discussed the complexity of a potential surgery. The recommendation was to have him assess by the interdisciplinary team. Goals of care discussions/Pall encounter: He is relatively stable. There are not acute issues for pall medicine. The decisions was made to offer radiation therapy. He is not a good candidate for surgery or chemo at this time. To reassess himthis coming week to assess his pall med needs. No changes for now. He would like to do more PT and OT. Thank you for allowing us to participate in the ongoing care of this patient. Please don't hesitate to call or page with any additional concerns. * Alec Franklin MD - 06/05/2023 2:54 PM EST PROGRESS NOTE - Radiation Oncology [address] [address] Name: Farhad Dash Jr. Location: [facility] A459/A Date: 06/05/2023 Time: 2:54 PM RADIATION ONCOLOGY SIMULATION & START OF TREATMENT NOTE Farhad Dash Jr. underwent simulation in Radiation Oncology at [facility] on 06/05/2023. Date and Time of Procedure: 06/05/2023 at 2:55 PM The patient is a 82 year old male who was simulated for palliative radiation therapy to the hypopharynx. The potential benefits and risks of radiation therapy were reviewed with the patient and family in detail. The alternative treatment options and expected outcomes were also discussed with the patientand family in detail. Written informed consent was obtained. The relevant diagnostic images were reviewed prior to simulation. The radiation planning CT scan will be fused to other diagnostic radiology studies (such as MRI or PET) if these will aid target and/or normal tissue delineation. Description of the procedure: The patient was brought to the simulator room and placed in the treatment position. The patient wasimmobilized per department protocol. Reference point was placed and verified. The radiation planning CT scan was then obtained. Measurements were taken and guan were placed. Radiation treatment position: supine Radiation immobilization devices: head and neck thermoplastic mask Other radiation planning issues: reconstruct prior radiation Radiation planning CT parameters: shallow free breathing CT scan Radiation planning CT contrast: CT scan IV contrast no CT scan oral contrast Patient breathing: shallow free breathing Radiation gating: none Radiation treatment planning: intensity modulated radiation therapy (IMRT) IMRT justification (if applicable): concave or convex gross tumor margin , at least 3 critical dose limiting structures adjacent to butoutside of the planned treatment volume that would incur unacceptable morbidity with conventional radiation therapy, immediately adjacent area has been previously radiated, tumor is located in a target area associated with cardiac or pulmonary motion, and IMRT would significantly decrease the probability of grade 2 or grade 3 radiation toxicity when compared to conventional radiation therapy IMRT avoidance structures (if applicable): salivary glands, spinal cord, and lungs Radiation dose (estimated): Quad shot x3 Positioning verification and target localization: cone beam computed tomography Concurrent chemotherapy: no The CT images were transferred to the radiation treatment planning system. The target volumes and critical adjacent normal tissues were contoured. The images and contours were discussed with and submitted to dosimetry and/or physics for treatment planning and dose calculation. The patient has been scheduled to return for treatment initiation in the near future, once a treatment plan has been designed. The patient will be seen on a regular basis once treatment begins. * Mikayla Johnson MD - 06/05/2023 7:04 AM EST PROGRESS NOTE - Critical Care [place] [facility] [place] [address] Name: Farhad Dash Jr. Location: [facility] A459/A Date: 06/05/2023 Time: 11:44 AM PRESENTING PROBLEM: Stridor in setting of known Laryngeal SCC HISTORY OF PRESENT ILLNESS: 82 year old male with history of Laryngeal SCC s/p XRT 2005, GERD, HTN, HLD, [place] s/p PCI and stenting, coming to [facility] ED at recommendation of OSH ENT for stridor concerning for airway compromise. Recently admitted for COVID and pseudomonas UTI at [facility]. He has had persistent dysphonia anddysphagia and has G tube for enteral nutrition. Denies odynophagia. No CP. Has mild dyspnea. 24H EVENTS OF NOTE: AF VSS tolerating trach collar. No acute overnight events. Palliative care following. Sleep protocol initiated today. Patient has been stable for floors. Will DC jenkins today. BM X 1 Last Bowel Movement: 06/04/23 Stool Description: Small, Loose, Brown UOP 1325 Lab results within last 7 days (see chart for full results) Units 06/05/23 0447 06/04/23 0434 06/03/23 0617 HGB g/dL 8.1* 7.7* 7.8* HCT % 26.3* 25.2* 25.1* WBC K/uL 8.39 6.29 6.58 PLT K/uL 200 173 170 Lab results within last 7 days (see chart for full results) Units 06/05/23 0447 06/04/23 0434 06/03/23 0617 Sodium mmol/L 136 133* 133* Potassium mmol/L 4.7 4.4 4.6 Chloride mmol/L 101 100 101 CO2 mmol/L 29 27 28 BUN mg/dL 20 17 16 Creatinine mg/dL 0.6 0.6 0.6 PAST MEDICAL HISTORY: Past Medical History: Diagnosis Date Diabetes mellitus (HCC) GERD (gastroesophageal reflux disease) History of cancer of larynx Hyperlipidemia Hypertension Myocardial infarction (HCC) PAST SURGICAL HISTORY: Past Surgical History: Procedure Laterality Date CORONARY ARTERY BYPASS, SINGLE EGD, FLEXIBLE,W/ENDOSCOPIC US 07/30/2019 sludge, ascites / [facility] ERCP 10/22/2019 stent removed / [facility] ERCP 07/30/2019 benign biliary papillary stenosis, stent placed / [facility] INCISION OF [place], PLANNED N/A 05/28/2023 TRACHEOSTOMY PLANNED performed by Abimael De La Rosa DO at OR [facility] LARYNGOSCOPY/DILATION N/A 05/28/2023 LARYNGOSCOPY DIRECT DILATION INITIAL performed by Abimael De La Rosa DO at OR [facility] REMOVE CATARACT, INSERT LENS PROSTH Right 06/27/2020 RIGHT EXTRACAPSULAR CATARACT REMOVAL WITH INTRAOCULAR LENS performed by Mason Hassan MD at OR [facility] REMOVE CATARACT, INSERT LENS PROSTH Left 07/11/2020 LEFT EXTRACAPSULAR CATARACT REMOVAL WITH INTRAOCULAR LENS performed by Mason Hassan MD at OR [facility] TOTAL HIP REPLACEMENT & PROSTHESIS Bilateral FAMILY HISTORY: Family History Problem Relation Age of Onset Hypertension Father SOCIAL HISTORY: Social History Tobacco Use Smoking status: Former Packs/day: 1.00 Years: 30.00 Additional pack years: 0.00 Total pack years: 30.00 Types: Cigarettes Quit date: 1969 Years since quittin.0 Smokeless tobacco: Former Types: Chew Quit date: 2004 Substance Use Topics Alcohol use: Not Currently Drug use: Never PRIOR TO ADMISSION MEDS: Current Outpatient Medications Medication Instructions Amoxicillin (AMOXIL) 2,000 mg, PRN Aspirin 81 mg, Oral, Daily(AM) Calcium Carbonate (CALCIUM-CARB 600) 600 mg, Oral, BID (AM/PM MEALS) Ferrous Sulfate (FEOSOL) 325 mg, Oral, BREAKFAST levothyroxine (LEVOXYL) 75 mcg, Oral, [id number], (at least 30 min prior to breakfast or other meds) MetFORMIN (GLUCOPHAGE) 1,000 mg, Oral, BID (AM/PM MEALS) pantoprazole (PROTONIX) 40 mg, Oral, Daily(AM) rosuvastatin (CRESTOR) 5 mg, Daily(AM) tamsulosin (FLOMAX) 0.4 mg, Oral, Daily(AM) ALLERGIES: Sulfa [sulfa antibiotics] CONSTITUTIONAL DATA / OBJECTIVE: Vital Signs (Most Recent): Pulse: 95 (06/05/23 0600) BP: 115/77 (06/05/23 0600) Resp: 14 (06/05/23 0500) Temp: 36.8 C (98.2 F) (06/05/23 0400) SpO2: 96 % (06/05/23 06) Vital Signs (Last 24 Hours): Pulse Av Min: 76 Max: 95 No data recorded Most Recent Systolic BP Av.6 mmHg Min: 88 mmHg Max: 118 mmHg Most Recent Diastolic BP Av.7 mmHg Min: 49 mmHg Max: 85 mmHg Resp Av Min: 5 Max: 26 Most Recent Temperature Av.5 C Min: 36.22 C Max: 36.78 C SpO2 Av.8 % Min: 96 % Max: 100 % Physical Examination: Constitutional: no acute distress Head: normocephalic, atraumatic. Ears, nose, throat: moist mucous membranes, no nasal discharge, no swelling of neck, hoarse, with expiratory wheeze and stridor.; tracheostomy in place Chest wall: no chest wall tenderness or deformity. Cardiovascular: normal rate Pulmonary: symmetric chest rise, trachea midline, ,mild respiratory distress. Abdomen: soft, non-distended, G tube in place. Genitourinary: some blood at urethral meatus and jenkins with pink urine Skin: warm, dry. Intake & Output Summary (Last 24 hours): Intake/Output Summary (Last 24 hours) at 06/05/2023 0704 Last data filed at 06/05/2023 0700 Gross per 24 hour Intake 1780 ml Output 1230 ml Net 550 ml Laboratory Values: CBC Lab results within last 7 days (see chart for full results) Units 06/05/23 0447 06/04/23 0434 06/03/23 0617 WBC K/uL 8.39 6.29 6.58 HGB g/dL 8.1* 7.7* 7.8* HCT % 26.3* 25.2* 25.1* PLT K/uL 200 173 170 BMP Lab results within last 7 days (see chart for full results) Units 06/05/237 06/04/23 0434 06/03/23 0617 Sodium mmol/L 136 133* 133* Potassium mmol/L 4.7 4.4 4.6 Chloride mmol/L 101 100 101 CO2 mmol/L 29 27 28 BUN mg/dL 20 17 16 Creatinine mg/dL 0.6 0.6 0.6 Glucose mg/dL 220* 278* 271* Ca, Mg, Phos Lab results within last 7 days (see chart for full results) Units 06/05/23 0447 06/04/23 0434 06/03/23 0617 Calcium mg/dL 8.2* 7.9* 7.9* Magnesium mg/dL 2.0 2.1 1.9 Phosphorus mg/dL 2.4* 2.7 2.7 Lactic acid No results in the last 7 days - inpatent use only Arterial Blood Gas No results in the last 7 days - inpatent use only Radiographic Studies: No imaging results in the last 24 hours Cultures: not applicable as of Recent Cultures (2 Weeks) 05/26/2023 05/26/2023 3:30 PM 3:26 PM BLOOD CULTURE GROWTH No growth No growth Assessment & Plan Principal Problem: Stridor (POA: Yes) Active Problems: Difficult airway for intubation (POA: Yes) Laryngeal mass (POA: Yes) Severe protein-energy malnutrition (HCC) (POA: Yes) Benign essential hypertension (POA: Yes) Carotid stenosis (POA: Yes) Overview: Last Assessment & Plan: I had [...] should go to the emergency room immediately. 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 (POA: Yes) Dyslipidemia, goal LDL below 70 (POA: Yes) Gastroesophageal reflux disease (POA: Yes) Hypothyroidism (POA: Yes) Paroxysmal atrial fibrillation (HCC) (POA: Yes) Type 2 diabetes mellitus without complication (HCC) (POA: Yes) Vocal cord dysfunction (POA: Yes) Tracheostomy status (HCC) (POA: No) Urinary retention (POA: Yes) Impaired mobility and ADLs (POA: Unknown) Goals of care, counseling/discussion (POA: Unknown) Palliative care encounter (POA: Unknown) Other insomnia (POA: Unknown) Constipation (POA: Unknown) POA = Present On Admission SYSTEMS BASED PLAN: NEURO: No active issues - Pain control - Tylenol 650mg q6H via G tube ICU psych consulted for recent disclosure of recurrent SCC Sleep protocol initiated 06/05. Melatonin 1mg qHS added CARDIAC / VASCULAR: History of HTN History of HLD History of CAD / [place] -Prior CABG 11/04/2017 CABG x2 with PEREYRA to LAD and vein graft to PDA. Patient also had clipping of the left atrial appendage -11/21/2009 PCI of proximal RCA with 3.5 x 23 Xience drug-eluting stent. 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 Dx disclosed to patient on 06/03 by ENT team. - humidified trach collar - NPO - inner cannula change BID - ENT to do first trach cahnge - Have obturator, spare (Shiley 6CN75H) and downsize (Shiley 4CN65H) trachs at bedside - Head of bed elevated >30 degrees - ENT to follow with serial scope exams - s/p 10mg Decadron in ED 05/26 - Aggressive Pulmonary toilet GI / HEPATOBILIARY: GERD Antireflux precautions G tube - Bowel regimen senna, colace via G tube, added miralax on 06/01 - PPI via G tube - Nutren 1.5 @ 50cc/hr for 24 hrs. 200cc TID free water flushes Last Bowel Movement: 06/04/23 Stool Description: Small, Loose, Brown RENAL / METABOLIC / FLUIDS: Urinary retention with recent UTI w/ pseudomonas Jenkins status Urethral bleeding -had jenkins from OSH -holding PROFESSIONAL DRIVER Flomax 0.4mg daily, convert to doxazosin 2mg via G tube -has failed SC protocol and replacing jenkins on 06/01 for 48H protocol -urology consult on 06/02, per their recs keep jenkins for 3 days (can DC 06/05) Hypophosphatemia Replete with phos snak Pend electrolytes Jenkins status DC today HEMATOLOGIC: Lovenox and SCDs for DVT ppx INFECTIOUS DISEASES: COVID 19 infection Apr 2023 UTI sepsis with Pseudomonas Apr 2023 Tuberculosis history - zosyn started 05/26/2023, switched to unasyn on 05/27/23 until 06/01/23 - U/A negative - MRSA negative - quantiferon gold negative ENDOCRINE: T2DM -holding PROFESSIONAL DRIVER Metformin - BG 250's this AM. Endocrine consulted Continue lantus 10 units hs Novolog: Will give 1 unit for every 25 cc/hr Q4h Adjusted TF to 50 cc/hr over 24 hrs with 200ml TID free water flushes Hypothyroidism -PROFESSIONAL DRIVER levoxyl 75mcg daily via G tube MUSCULOSKELETAL / DERM: No active issues P.T./O.T. / MOBILITY / WOUND CARE: PT/OT consult after OR PM&R consult LINES / DRAINS / TUBES: LINES ALL Duration Gastrostomy/Enterostomy Gastrostomy-jejunostomy LUQ -- days Peripheral Line Left Antecubital 18 Gauge -- days Airway Neck Trach 7 days Urethral Catheter Coude 3 days GLOBAL ISSUES: Code Status: Limited Code Analgesia: well controlled Sedation: 100% holiday per protocol Delirium/Confusion Assessment Method for ICU (CAM-ICU): negative HOB Elevation: greater than 30 degrees Nutrition: NPO DVT Prophylaxis: chemoprophylaxis with pneumatic compression devices Stress Ulcer Prophylaxis: Histamine 2 Receptor Re. Glycemic Control: well controlled Central Line Necessity Reviewed: N/A Jenkins: reviewed and needed Disposition: transfer to floor Patient's decisional capacity: has capacity to make decisions Communication with Patient/Family: Brief Family Communication. Patient/Family participation: Patient and Spouse/Partner. Goals of Care: wean respiratory parameters, stabilize hemodynamic status, and decrease pain and discomfort Patient was seen and discussed on rounds with DO Angela Redman MD - PGY2 General Surgery Resident [facility] Associated attestation - Viktoriya Ha DO - 06/05/2023 12:15 PM EST I have discussed the patient's management with the resident physician and/or advanced practice provider and agree with the note excepting the changes below. Please refer to the documented findings and plan of care. The patient's service consisted of an evaluation. I have seen and evaluated the patient. Tumor board discussion completed yesterday. Patient seen by palliative and pending discussion with medical/radiation oncology regarding options if surgical option cannot be considered given patient'scomorbidities. Continue remainder of care at present. Pending ICU psychology evaluation. Viktoriya Ha DO, MS, FACOS Trauma and Acute Care Surgery Surgical Critical Care * Mikayla Johnson MD - 06/04/2023 6:27 AM EST PROGRESS NOTE - [facility] [address] [address] Name: Farhad Dash Jr. Location: Date: 06/01/2023 Date of admission: 05/26/2023 Hospital length of stay: 9 days PRESENTING PROBLEM: Stridor in setting of known Laryngeal SCC HISTORY OF PRESENT ILLNESS: 82 year old male with history of Laryngeal SCC s/p XRT 2005, GERD, HTN, HLD, [place] s/p PCI and stenting, coming to [facility] ED at recommendation of OSH ENT for stridor concerning for airway compromise. Recently admitted for COVID and pseudomonas UTI at [facility]. He has had persistent dysphonia anddysphagia and has G tube for enteral nutrition. Denies odynophagia. No CP. Has mild dyspnea. 24H EVENTS OF NOTE: AF VSS tolerating trach collar. Endorses no pain in abdomen, no pain in urethra. Received 500 cc isolyte overnight for low UOP. Tolerating TF @ 95 cc per hr x 14 hrs. 1168mL UOP via jenkins Last Bowel Movement: 06/02/23 Stool Description: Large, Loose, Liquid, Brown PAST MEDICAL HISTORY: Past Medical History: Diagnosis Date Diabetes mellitus (HCC) GERD (gastroesophageal reflux disease) History of cancer of larynx Hyperlipidemia Hypertension Myocardial infarction (HCC) PAST SURGICAL HISTORY: Past Surgical History: Procedure Laterality Date CORONARY ARTERY BYPASS, SINGLE EGD, FLEXIBLE,W/ENDOSCOPIC US 07/30/2019 sludge, ascites / [facility] ERCP 10/22/2019 stent removed / [facility] ERCP 07/30/2019 benign biliary papillary stenosis, stent placed / [facility] INCISION OF [place], PLANNED N/A 05/28/2023 TRACHEOSTOMY PLANNED performed by Abimael De La Rosa DO at OR [facility] LARYNGOSCOPY/DILATION N/A 05/28/2023 LARYNGOSCOPY DIRECT DILATION INITIAL performed by Abimael De La Rosa DO at OR [facility] REMOVE CATARACT, INSERT LENS PROSTH Right 06/27/2020 RIGHT EXTRACAPSULAR CATARACT REMOVAL WITH INTRAOCULAR LENS performed by Mason Hassan MD at OR [facility] REMOVE CATARACT, INSERT LENS PROSTH Left 07/11/2020 LEFT EXTRACAPSULAR CATARACT REMOVAL WITH INTRAOCULAR LENS performed by Mason Hassan MD at OR [facility] TOTAL HIP REPLACEMENT & PROSTHESIS Bilateral FAMILY HISTORY: Family History Problem Relation Age of Onset Hypertension Father SOCIAL HISTORY: Social History Tobacco Use Smoking status: Former Packs/day: 1.00 Years: 30.00 Additional pack years: 0.00 Total pack years: 30.00 Types: Cigarettes Quit date: 1969 Years since quittin.0 Smokeless tobacco: Former Types: Chew Quit date: 2004 Substance Use Topics Alcohol use: Not Currently Drug use: Never PRIOR TO ADMISSION MEDS: Current Outpatient Medications Medication Instructions Amoxicillin (AMOXIL) 2,000 mg, PRN Aspirin 81 mg, Oral, Daily(AM) Calcium Carbonate (CALCIUM-CARB 600) 600 mg, Oral, BID (AM/PM MEALS) Ferrous Sulfate (FEOSOL) 325 mg, Oral, BREAKFAST levothyroxine (LEVOXYL) 75 mcg, Oral, [id number], (at least 30 min prior to breakfast or other meds) MetFORMIN (GLUCOPHAGE) 1,000 mg, Oral, BID (AM/PM MEALS) pantoprazole (PROTONIX) 40 mg, Oral, Daily(AM) rosuvastatin (CRESTOR) 5 mg, Daily(AM) tamsulosin (FLOMAX) 0.4 mg, Oral, Daily(AM) ALLERGIES: Sulfa [sulfa antibiotics] CONSTITUTIONAL DATA / OBJECTIVE: Vital Signs (Most Recent): Pulse: 75 (06/04/23 0500) BP: 97/59 (06/04/23 0500) Resp: 15 (06/04/23 0500) Temp: 36.5 C (97.7 F) (06/04/23 0400) SpO2: 100 % (06/04/23 0500) Vital Signs (Last 24 Hours): Pulse Av.5 Min: 72 Max: 89 No data recorded Most Recent Systolic BP Av.9 mmHg Min: 89 mmHg Max: 124 mmHg Most Recent Diastolic BP Av mmHg Min: 48 mmHg Max: 73 mmHg Resp Av.8 Min: 13 Max: 21 Most Recent Temperature Av.1 C Min: 36.5 C Max: 37.39 C SpO2 Av.4 % Min: 96 % Max: 100 % Physical Examination: Constitutional: no acute distress Head: normocephalic, atraumatic. Ears, nose, throat: moist mucous membranes, no nasal discharge, no swelling of neck, hoarse, with expiratory wheeze and stridor.; tracheostomy in place Chest wall: no chest wall tenderness or deformity. Cardiovascular: normal rate, irregular rhythm. Pulmonary: symmetric chest rise, trachea midline, ,mild respiratory distress. Abdomen: soft, non-distended, G tube in place. Genitourinary: some blood at urethral meatus and jenkins with pink urine Musculoskeletal: 5/5 strength in bilateral upper and bilateral lower extremities. Skin: warm, dry. Intake & Output Summary (Last 24 hours): Intake/Output Summary (Last 24 hours) at 06/04/2023 0627 Last data filed at 06/04/2023 0600 Gross per 24 hour Intake 2495.33 ml Output 1068 ml Net 1427.33 ml Laboratory Values: CBC Lab results within last 7 days (see chart for full results) Units 06/04/23 0434 06/03/23 0617 06/02/23 0437 WBC K/uL 6.29 6.58 7.44 HGB g/dL 7.7* 7.8* 8.3* HCT % 25.2* 25.1* 26.6* PLT K/uL 173 170 159 BMP Lab results within last 7 days (see chart for full results) Units 06/04/23 0434 06/03/23 0617 06/02/23 0437 Sodium mmol/L 133* 133* 137 Potassium mmol/L 4.4 4.6 4.7 Chloride mmol/L 100 101 102 CO2 mmol/L 27 28 30 BUN mg/dL 17 16 18 Creatinine mg/dL 0.6 0.6 0.6 Glucose mg/dL 278* 271* 152* Ca, Mg, Phos Lab results within last 7 days (see chart for full results) Units 06/04/23 0434 06/03/23 0617 06/02/23 043 Calcium mg/dL 7.9* 7.9* 8.0* Magnesium mg/dL 2.1 1.9 1.9 Phosphorus mg/dL 2.7 2.7 2.5 Lactic acid No results in the last 7 days - inpatent use only Arterial Blood Gas No results in the last 7 days - inpatent use only Radiographic Studies: CT CHEST/ABDOMEN/PELVIS WITH IV CONTRAST WITHOUT ORAL CONTRAST Result Date: 06/03/2023 IMPRESSION 1. Mild pulmonary edema and small bilateral pleural effusions. 2. Pulmonary edema limitsevaluation for suspicious pulmonary nodules. No additional evidence of metastatic disease in the chest. Short-term follow-up CT chest recommended. 3. No evidence of metastatic disease in the abdomen/pelvis. Cultures: not applicable as of Recent Cultures (2 Weeks) 05/26/2023 05/26/2023 3:30 PM 3:26 PM BLOOD CULTURE GROWTH No growth No growth Assessment & Plan Principal Problem: Stridor (POA: Yes) Active Problems: Difficult airway for intubation (POA: Yes) Laryngeal mass (POA: Yes) Severe protein-energy malnutrition (HCC) (POA: Yes) Benign essential hypertension (POA: Yes) Carotid stenosis (POA: Yes) Overview: Last Assessment & Plan: I had [...] should go to the emergency room immediately. 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 (POA: Yes) Dyslipidemia, goal LDL below 70 (POA: Yes) Gastroesophageal reflux disease (POA: Yes) Hypothyroidism (POA: Yes) Paroxysmal atrial fibrillation (HCC) (POA: Yes) Type 2 diabetes mellitus without complication (HCC) (POA: Yes) Vocal cord dysfunction (POA: Yes) Tracheostomy status (HCC) (POA: No) Urinary retention (POA: Yes) Impaired mobility and ADLs (POA: Unknown) POA = Present On Admission SYSTEMS BASED PLAN: NEURO: No active issues - Pain control - Tylenol 650mg q6H via G tube ICU psych consulted for recent disclosure of recurrent SCC CARDIAC / VASCULAR: History of HTN History of HLD History of CAD / [place] -Prior CABG 11/04/2017 CABG x2 with PEREYRA to LAD and vein graft to PDA. Patient also had clipping of the left atrial appendage -11/21/2009 PCI of proximal RCA with 3.5 x 23 Xience drug-eluting stent. 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 Dx disclosed to patient on 06/03 by ENT team. - humidified trach collar - NPO - inner cannula change BID - ENT to do first trach cahnge - Have obturator, spare (Shiley 6CN75H) and downsize (Shiley 4CN65H) trachs at bedside - Head of bed elevated >30 degrees - ENT to follow with serial scope exams - s/p 10mg Decadron in ED 05/26 - Aggressive Pulmonary toilet GI / HEPATOBILIARY: GERD Antireflux precautions G tube - Bowel regimen senna, colace via G tube, added miralax on 06/01 - PPI via G tube - Nutren 1.5 @ 95cc x 14 hrs per nutrition recs Last Bowel Movement: 06/02/23 Stool Description: Large, Loose, Liquid, Brown RENAL / METABOLIC / FLUIDS: Urinary retention with recent UTI w/ pseudomonas Jenkins status Urethral bleeding -had jenkins from OSH -holding PROFESSIONAL DRIVER Flomax 0.4mg daily, convert to doxazosin 2mg via G tube -has failed SC protocol and replacing jenkins on 06/01 for 48H protocol -urology consult on 06/02, per their recs keep jenkins for 3 days (can DC 06/05) HEMATOLOGIC: Lovenox and SCDs for DVT ppx INFECTIOUS DISEASES: COVID 19 infection Apr 2023 UTI sepsis with Pseudomonas Apr 2023 Tuberculosis history - zosyn started 05/26/2023, switched to unasyn on 05/27/23 until 06/01/23 - U/A negative - MRSA negative - quantiferon gold negative ENDOCRINE: T2DM -holding PROFESSIONAL DRIVER Metformin - BG 250's this AM. Endocrine consulted Continue lantus 10 units hs Change novlog Q4 hrs : 1 unit : 30 ml per hr Nutren 1.5 + 251-350 1 unit 351-450 2 units - TF currently at goal rate of 95cc/hr Hypothyroidism -PROFESSIONAL DRIVER levoxyl 75mcg daily via G tube MUSCULOSKELETAL / DERM: No active issues P.T./O.T. / MOBILITY / WOUND CARE: PT/OT consult after OR PM&R consult LINES / DRAINS / TUBES: LINES ALL Duration Gastrostomy/Enterostomy Gastrostomy-jejunostomy LUQ -- days Peripheral Line Left Antecubital 18 Gauge -- days Airway Neck Trach 6 days Urethral Catheter Coude 2 days GLOBAL ISSUES: Code Status: Limited Code Analgesia: well controlled Sedation: 100% holiday per protocol Delirium/Confusion Assessment Method for ICU (CAM-ICU): negative HOB Elevation: greater than 30 degrees Nutrition: NPO DVT Prophylaxis: chemoprophylaxis with pneumatic compression devices Stress Ulcer Prophylaxis: Histamine 2 Receptor Re. Glycemic Control: well controlled Central Line Necessity Reviewed: N/A Jenkins: reviewed and needed Disposition: transfer to floor Patient's decisional capacity: has capacity to make decisions Communication with Patient/Family: Brief Family Communication. Patient/Family participation: Patient and Spouse/Partner. Goals of Care: wean respiratory parameters, stabilize hemodynamic status, and decrease pain and discomfort Patient was seen and discussed on rounds with DO Angela Redman MD - PGY2 General Surgery Resident [facility] Associated attestation - Viktoriya Ha DO - 06/04/2023 5:02 PM EST I have discussed the patient's management with the resident physician and/or advanced practice provider and agree with the note excepting the changes below. Please refer to the documented findings and plan of care. The patient's service consisted of an evaluation. I have seen and evaluated the patient. No acute overnight events. Remains stable from a hemodynamic and respiratory standpoint. Labs within functional limits. Mobilize as able. Pain control as needed. Endocrinology for glucose management.Continue tube feeds. PT/OT as able. Remains medically stable for transfer to med-surg floor. Viktoriya Ha DO, MS, FACOS Trauma and Acute Care Surgery Surgical Critical Care * Judi Styles MD - 06/03/2023 1:47 PM EST Diagnostic Clarification: Patient has a stage 2 pressure injury of the sacrum. * Mikayla Johnson MD - 06/03/2023 7:44 AM EST PROGRESS NOTE - [facility]-[address] [address] Name: Farhad Dash Location: Date: 06/01/2023 Date of admission: 05/26/2023 Hospital length of stay: 8 days PRESENTING PROBLEM: Stridor in setting of known Laryngeal SCC HISTORY OF PRESENT ILLNESS: 82 year old male with history of Laryngeal SCC s/p XRT 2005, GERD, HTN, HLD, [place] s/p PCI and stenting, coming to [facility] ED at recommendation of OSH ENT for stridor concerning for airway compromise. Recently admitted for COVID and pseudomonas UTI at [facility]. He has had persistent dysphonia anddysphagia and has G tube for enteral nutrition. Denies odynophagia. No CP. Has mild dyspnea. 24H EVENTS OF NOTE: AF VSS tolerating trach collar. Endorses no pain in abdomen, no pain in urethra. Patients pathologyresults and SCC recurrent disclosed by ENT team this morning 2685mL UOP via jenkins Last Bowel Movement: 06/02/23 Stool Description: Large, Loose, Liquid, Brown PAST MEDICAL HISTORY: Past Medical History: Diagnosis Date Diabetes mellitus (HCC) GERD (gastroesophageal reflux disease) History of cancer of larynx Hyperlipidemia Hypertension Myocardial infarction (HCC) PAST SURGICAL HISTORY: Past Surgical History: Procedure Laterality Date CORONARY ARTERY BYPASS, SINGLE EGD, FLEXIBLE,W/ENDOSCOPIC US 07/30/2019 sludge, ascites / [facility] ERCP 10/22/2019 stent removed / [facility] ERCP 07/30/2019 benign biliary papillary stenosis, stent placed / [facility] INCISION OF [place], PLANNED N/A 05/28/2023 TRACHEOSTOMY PLANNED performed by Abimael De La Rosa DO at [facility] LARYNGOSCOPY/DILATION N/A 05/28/2023 LARYNGOSCOPY DIRECT DILATION INITIAL performed by Abimael De La Rosa DO at [facility] REMOVE CATARACT, INSERT LENS PROSTH Right 06/27/2020 RIGHT EXTRACAPSULAR CATARACT REMOVAL WITH INTRAOCULAR LENS performed by Mason Hassan MD at [facility] REMOVE CATARACT, INSERT LENS PROSTH Left 07/11/2020 LEFT EXTRACAPSULAR CATARACT REMOVAL WITH INTRAOCULAR LENS performed by Mason Hassan MD at [facility] TOTAL HIP REPLACEMENT & PROSTHESIS Bilateral FAMILY HISTORY: Family History Problem Relation Age of Onset Hypertension Father SOCIAL HISTORY: Social History Tobacco Use Smoking status: Former Packs/day: 1.00 Years: 30.00 Additional pack years: 0.00 Total pack years: 30.00 Types: Cigarettes Quit date: 1969 Years since quittin.0 Smokeless tobacco: Former Types: Chew Quit date: 2004 Substance Use Topics Alcohol use: Not Currently Drug use: Never PRIOR TO ADMISSION MEDS: Current Outpatient Medications Medication Instructions Amoxicillin (AMOXIL) 2,000 mg, PRN Aspirin 81 mg, Oral, Daily(AM) Calcium Carbonate (CALCIUM-CARB 600) 600 mg, Oral, BID (AM/PM MEALS) Ferrous Sulfate (FEOSOL) 325 mg, Oral, BREAKFAST levothyroxine (LEVOXYL) 75 mcg, Oral, [id number], (at least 30 min prior to breakfast or other meds) MetFORMIN (GLUCOPHAGE) 1,000 mg, Oral, BID (AM/PM MEALS) pantoprazole (PROTONIX) 40 mg, Oral, Daily(AM) rosuvastatin (CRESTOR) 5 mg, Daily(AM) tamsulosin (FLOMAX) 0.4 mg, Oral, Daily(AM) ALLERGIES: Sulfa [sulfa antibiotics] CONSTITUTIONAL DATA / OBJECTIVE: Vital Signs (Most Recent): Pulse: 81 (06/03/23 0900) BP: 112/60 (06/03/23 0900) Resp: 15 (06/03/23899) Temp: 37.2 C (99 F) (06/03/23799) SpO2: 100 % (06/03/23899) Vital Signs (Last 24 Hours): Pulse Av.2 Min: 76 Max: 96 No data recorded Most Recent Systolic BP Av.6 mmHg Min: 90 mmHg Max: 120 mmHg Most Recent Diastolic BP Av.4 mmHg Min: 46 mmHg Max: 69 mmHg Resp Av.6 Min: 11 Max: 20 Most Recent Temperature Av.4 C Min: 36 C Max: 37.22 C SpO2 Av.6 % Min: 96 % Max: 100 % Physical Examination: Constitutional: no acute distress Head: normocephalic, atraumatic. Ears, nose, throat: moist mucous membranes, no nasal discharge, no swelling of neck, hoarse, with expiratory wheeze and stridor.; tracheostomy in place Chest wall: no chest wall tenderness or deformity. Cardiovascular: normal rate, irregular rhythm. Pulmonary: symmetric chest rise, trachea midline, ,mild respiratory distress. Abdomen: soft, non-distended, G tube in place. Genitourinary: some blood at urethral meatus and jenkins with pink urine Musculoskeletal: 5/5 strength in bilateral upper and bilateral lower extremities. Skin: warm, dry. Intake & Output Summary (Last 24 hours): Intake/Output Summary (Last 24 hours) at 06/03/2023 1030 Last data filed at 06/03/2023 1000 Gross per 24 hour Intake 1295 ml Output 2815 ml Net -1520 ml Laboratory Values: CBC Lab results within last 7 days (see chart for full results) Units 06/03/23 0617 06/02/23 0437 06/01/23 0444 WBC K/uL 6.58 7.44 5.91 HGB g/dL 7.8* 8.3* 8.2* HCT % 25.1* 26.6* 26.0* PLT K/uL 170 159 144 BMP Lab results within last 7 days (see chart for full results) Units 06/03/23 0617 06/02/23 0437 06/01/23 0444 Sodium mmol/L 133* 137 137 Potassium mmol/L 4.6 4.7 4.2 Chloride mmol/L 101 102 104 CO2 mmol/L 28 30 30 BUN mg/dL 16 18 16 Creatinine mg/dL 0.6 0.6 0.5* Glucose mg/dL 271* 152* 128* Ca, Mg, Phos Lab results within last 7 days (see chart for full results) Units 06/03/23 0617 06/02/23 0437 06/01/23 0444 Calcium mg/dL 7.9* 8.0* 7.9* Magnesium mg/dL 1.9 1.9 2.0 Phosphorus mg/dL 2.7 2.5 2.7 Lactic acid No results in the last 7 days - inpatent use only Arterial Blood Gas No results in the last 7 days - inpatent use only Radiographic Studies: No imaging results in the last 24 hours Cultures: not applicable as of Recent Cultures (2 Weeks) 05/26/2023 05/26/2023 3:30 PM 3:26 PM BLOOD CULTURE GROWTH No growth No growth Assessment & Plan Principal Problem: Stridor (POA: Yes) Active Problems: Difficult airway for intubation (POA: Yes) Laryngeal mass (POA: Yes) Severe protein-energy malnutrition (HCC) (POA: Yes) Benign essential hypertension (POA: Yes) Carotid stenosis (POA: Yes) Overview: Last Assessment & Plan: I had [...] should go to the emergency room immediately. 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 (POA: Yes) Dyslipidemia, goal LDL below 70 (POA: Yes) Gastroesophageal reflux disease (POA: Yes) Hypothyroidism (POA: Yes) Paroxysmal atrial fibrillation (HCC) (POA: Yes) Type 2 diabetes mellitus without complication (HCC) (POA: Yes) Vocal cord dysfunction (POA: Yes) Tracheostomy status (HCC) (POA: No) Urinary retention (POA: Yes) Impaired mobility and ADLs (POA: Unknown) POA = Present On Admission SYSTEMS BASED PLAN: NEURO: No active issues - Pain control - Tylenol 650mg q6H via G tube CARDIAC / VASCULAR: History of HTN History of HLD History of CAD / TX -Prior CABG 11/04/2017 CABG x2 with PEREYRA to LAD and vein graft to PDA. Patient also had clipping of the left atrial appendage -11/21/2009 PCI of proximal RCA with 3.5 x 23 Xience drug-eluting stent. 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 Presumed aspiration - ENT consult appreciate recommendations - s/p OR 05/28 for tracheostomy with DL and biopsy of mass - humidified trach collar - NPO - inner cannula change BID - ENT to do first trach cahnge - Have obturator, spare (Shiley 6CN75H) and downsize (Shiley 4CN65H) trachs at bedside - Head of bed elevated >30 degrees - ENT to follow with serial scope exams - s/p 10mg Decadron in ED 05/26 - Aggressive Pulmonary toilet GI / HEPATOBILIARY: GERD Antireflux precautions G tube - Bowel regimen senna, colace via G tube, added miralax on 06/01 - PPI via G tube - Nutren 1.5 @ 95cc x 14 hrs per nutrition recs Last Bowel Movement: 06/02/23 Stool Description: Large, Loose, Liquid, Brown RENAL / METABOLIC / FLUIDS: Urinary retention with recent UTI w/ pseudomonas Jenkins status Urethral bleeding -had jenkins from OSH -holding PROFESSIONAL DRIVER Flomax 0.4mg daily, convert to doxazosin 2mg via G tube -has failed SC protocol and replacing jenkins on 06/01 for 48H protocol -urology consult on 06/02 HEMATOLOGIC: Lovenox and SCDs for DVT ppx INFECTIOUS DISEASES: COVID 19 infection Apr 2023 UTI sepsis with Pseudomonas Apr 2023 Tuberculosis history - zosyn started 05/26/2023, switched to unasyn on 05/27/23 until 06/01/23 - U/A negative - MRSA negative - quantiferon gold negative ENDOCRINE: T2DM -holding PROFESSIONAL DRIVER Metformin -very high dose ISS -start 10u Lantus qHS 06/02 - BG 270 this AM. Endocrine consulted Hypothyroidism -restarted PROFESSIONAL DRIVER levoxyl 75mcg daily via G tube MUSCULOSKELETAL / DERM: No active issues P.T./O.T. / MOBILITY / WOUND CARE: PT/OT consult after OR PM&R consult LINES / DRAINS / TUBES: LINES ALL Duration Gastrostomy/Enterostomy Gastrostomy-jejunostomy LUQ -- days Peripheral Line Left Antecubital 18 Gauge -- days Airway Neck Trach 5 days Urethral Catheter Coude 2 days GLOBAL ISSUES: Code Status: Limited Code Analgesia: well controlled Sedation: 100% holiday per protocol Delirium/Confusion Assessment Method for ICU (CAM-ICU): negative HOB Elevation: greater than 30 degrees Nutrition: NPO DVT Prophylaxis: chemoprophylaxis with pneumatic compression devices Stress Ulcer Prophylaxis: Histamine 2 Receptor Re. Glycemic Control: well controlled Central Line Necessity Reviewed: N/A Jenkins: reviewed and needed Disposition: transfer to floor Patient's decisional capacity: has capacity to make decisions Communication with Patient/Family: Brief Family Communication. Patient/Family participation: Patient and Spouse/Partner. Goals of Care: wean respiratory parameters, stabilize hemodynamic status, and decrease pain and discomfort Patient was seen and discussed on rounds with DO Angela Redman MD - PGY2 General Surgery Resident [facility] Associated attestation - Viktoriya Ha DO - 06/03/2023 2:42 PM EST I have discussed the patient's management with the resident physician and/or advanced practice provider and agree with the note excepting the changes below. Please refer to the documented findings and plan of care. The patient's service consisted of an evaluation. I have seen and evaluated the patient. 82 yo M w/ history of laryngeal SCC status post XRT in 2005 with new laryngeal mass presenting withnear obstruction prompting awake tracheostomy creation and biopsy on 1/10 and admission to the SICUfor close monitoring of airway in a new tracheostomy status. Patient additionally noted to have a pseudomonas UTI status post treatment and recent COVID infection. While in-house, concern raised for p otential TB infection which has since been ruled out. Patient remains stable from a hemodynamic andrespiratory standpoint at this time on tracheostomy collar. No acute overnight events noted. Patient making appropriate urine with jenkins in place, hematuria has resolved. Patient's pathology significant for recurrence of laryngeal SCC which has been disclosed to patient. Further ENT recommendationspending. Continue pain control, obtain ICU psychology evaluation, continue night cycle tube feedings and cardura. Consider discontinuation of jenkins once more mobile (72 hours total). Continue DVT ppxand PT/OT. Appreciate PM&R evaluation, will disposition patient once ENT plans finalized. Appreciate endocrinology recommendations for glucose control as he remains hyperglycemic. Patient remainsmedically stable for downgrade to med-surg floor under ENT. Viktoriya Ha DO, MS, [facility] Trauma and Acute Care Surgery Surgical Critical Care * Warner Michael MD - 06/02/2023 6:03 AM EST PROGRESS NOTE - Critical Care [place] [facility] [address] Name: Farhad Dash JrFarzana Location: Date: 06/01/2023 Date of admission: 05/26/2023 Hospital length of stay: 7 days PRESENTING PROBLEM: Stridor in setting of known Laryngeal SCC HISTORY OF PRESENT ILLNESS: 82 year old male with history of Laryngeal SCC s/p XRT 2005, GERD, HTN, HLD, [place] s/p PCI and stenting, coming to [facility] ED at recommendation of OSH ENT for stridor concerning for airway compromise. Recently admitted for COVID and pseudomonas UTI at [facility]. He has had persistent dysphonia anddysphagia and has G tube for enteral nutrition. Denies odynophagia. No CP. Has mild dyspnea. 24H EVENTS OF NOTE: AF VSS tolerating trach collar. Had some bleeding from urethral meatus after jenkins placement for acute retention yesterday. Endorses no pain in abdomen, no pain in urethra. Breathing is normal. 2200mL UOP via jenkins Last Bowel Movement: 06/02/23 Stool Description: Large, Loose, Liquid, Brown PAST MEDICAL HISTORY: Past Medical History: Diagnosis Date Diabetes mellitus (HCC) GERD (gastroesophageal reflux disease) History of cancer of larynx Hyperlipidemia Hypertension Myocardial infarction (HCC) PAST SURGICAL HISTORY: Past Surgical History: Procedure Laterality Date CORONARY ARTERY BYPASS, SINGLE EGD, FLEXIBLE,W/ENDOSCOPIC US 07/30/2019 sludge, ascites / [facility] ERCP 10/22/2019 stent removed / [facility] ERCP 07/30/2019 benign biliary papillary stenosis, stent placed / [facility] INCISION OF [place], PLANNED N/A 05/28/2023 TRACHEOSTOMY PLANNED performed by Abimael De La Rosa DO at OR [facility] LARYNGOSCOPY/DILATION N/A 05/28/2023 LARYNGOSCOPY DIRECT DILATION INITIAL performed by Abimael De La Rosa DO at [facility] REMOVE CATARACT, INSERT LENS PROSTH Right 06/27/2020 RIGHT EXTRACAPSULAR CATARACT REMOVAL WITH INTRAOCULAR LENS performed by Mason Hassan MD at [facility] REMOVE CATARACT, INSERT LENS PROSTH Left 07/11/2020 LEFT EXTRACAPSULAR CATARACT REMOVAL WITH INTRAOCULAR LENS performed by Mason Hassan MD at OR [facility] TOTAL HIP REPLACEMENT & PROSTHESIS Bilateral FAMILY HISTORY: Family History Problem Relation Age of Onset Hypertension Father SOCIAL HISTORY: Social History Tobacco Use Smoking status: Former Packs/day: 1.00 Years: 30.00 Additional pack years: 0.00 Total pack years: 30.00 Types: Cigarettes Quit date: 1969 Years since quittin.0 Smokeless tobacco: Former Types: Chew Quit date: 2004 Substance Use Topics Alcohol use: Not Currently Drug use: Never PRIOR TO ADMISSION MEDS: Current Outpatient Medications Medication Instructions Amoxicillin (AMOXIL) 2,000 mg, PRN Aspirin 81 mg, Oral, Daily(AM) Calcium Carbonate (CALCIUM-CARB 600) 600 mg, Oral, BID (AM/PM MEALS) Ferrous Sulfate (FEOSOL) 325 mg, Oral, BREAKFAST levothyroxine (LEVOXYL) 75 mcg, Oral, [id number], (at least 30 min prior to breakfast or other meds) MetFORMIN (GLUCOPHAGE) 1,000 mg, Oral, BID (AM/PM MEALS) pantoprazole (PROTONIX) 40 mg, Oral, Daily(AM) rosuvastatin (CRESTOR) 5 mg, Daily(AM) tamsulosin (FLOMAX) 0.4 mg, Oral, Daily(AM) ALLERGIES: Sulfa [sulfa antibiotics] CONSTITUTIONAL DATA / OBJECTIVE: Vital Signs (Most Recent): Pulse: 80 (06/02/23 1000) BP: 119/49 (06/02/23 0900) Resp: 13 (06/02/23 1000) Temp: 36.5 C (97.7 F) (06/02/23 0800) SpO2: 100 % (06/02/23 1000) Vital Signs (Last 24 Hours): Pulse Av.3 Min: 75 Max: 99 No data recorded Most Recent Systolic BP Av.2 mmHg Min: 105 mmHg Max: 119 mmHg Most Recent Diastolic BP Av.2 mmHg Min: 49 mmHg Max: 69 mmHg Resp Av.4 Min: 12 Max: 19 Most Recent Temperature Av.6 C Min: 36.39 C Max: 36.72 C SpO2 Av.3 % Min: 95 % Max: 100 % Physical Examination: Constitutional: no acute distress Head: normocephalic, atraumatic. Ears, nose, throat: moist mucous membranes, no nasal discharge, no swelling of neck, hoarse, with expiratory wheeze and stridor.; tracheostomy in place Chest wall: no chest wall tenderness or deformity. Cardiovascular: normal rate, irregular rhythm. Pulmonary: symmetric chest rise, trachea midline, ,mild respiratory distress. Abdomen: soft, non-distended, G tube in place. Genitourinary: some blood at urethral meatus and jenkins with pink urine Musculoskeletal: 5/5 strength in bilateral upper and bilateral lower extremities. Skin: warm, dry. Intake & Output Summary (Last 24 hours): Intake/Output Summary (Last 24 hours) at 06/02/2023 1056 Last data filed at 06/02/2023 0800 Gross per 24 hour Intake 1450 ml Output 1885 ml Net -435 ml Laboratory Values: CBC Lab results within last 7 days (see chart for full results) Units 06/02/23 0437 06/01/23 0444 05/31/23 0501 WBC K/uL 7.44 5.91 7.14 HGB g/dL 8.3* 8.2* 9.4* HCT % 26.6* 26.0* 30.1* PLT K/uL 159 144 160 BMP Lab results within last 7 days (see chart for full results) Units 06/02/23 0437 06/01/23 0444 05/31/23 0501 Sodium mmol/L 137 137 138 Potassium mmol/L 4.7 4.2 4.4 Chloride mmol/L 102 104 104 CO2 mmol/L 30 30 27 BUN mg/dL 18 16 13 Creatinine mg/dL 0.6 0.5* 0.5* Glucose mg/dL 152* 128* 219* Ca, Mg, Phos Lab results within last 7 days (see chart for full results) Units 06/02/23 0437 06/01/23 0444 05/31/23 0501 Calcium mg/dL 8.0* 7.9* 7.7* Magnesium mg/dL 1.9 2.0 2.0 Phosphorus mg/dL 2.5 2.7 2.3* Lactic acid Lab results within last 7 days (see chart for full results) Units 05/26/23 1530 Lactate mmol/L 1.2 Arterial Blood Gas No results in the last 7 days - inpatent use only Radiographic Studies: No imaging results in the last 24 hours Cultures: not applicable as of Recent Cultures (2 Weeks) 05/26/2023 05/26/2023 3:30 PM 3:26 PM BLOOD CULTURE GROWTH No growth No growth Assessment & Plan Principal Problem: Stridor (POA: Yes) Active Problems: Difficult airway for intubation (POA: Yes) Laryngeal mass (POA: Yes) Severe protein-energy malnutrition (HCC) (POA: Yes) Benign essential hypertension (POA: Yes) Carotid stenosis (POA: Yes) Overview: Last Assessment & Plan: I had [...] should go to the emergency room immediately. 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 (POA: Yes) Dyslipidemia, goal LDL below 70 (POA: Yes) Gastroesophageal reflux disease (POA: Yes) Hypothyroidism (POA: Yes) Paroxysmal atrial fibrillation (HCC) (POA: Yes) Type 2 diabetes mellitus without complication (HCC) (POA: Yes) Vocal cord dysfunction (POA: Yes) Tracheostomy status (HCC) (POA: No) Urinary retention (POA: Yes) POA = Present On Admission SYSTEMS BASED PLAN: NEURO: No active issues - Pain control - Tylenol 650mg q6H via G tube CARDIAC / VASCULAR: History of HTN History of HLD History of CAD / [place] -Prior CABG 11/04/2017 CABG x2 with PEREYRA to LAD and vein graft to PDA. Patient also had clipping of the left atrial appendage -11/21/2009 PCI of proximal RCA with 3.5 x 23 Xience drug-eluting stent. 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 Presumed aspiration - ENT consult appreciate recommendations - s/p OR 05/28 for tracheostomy with DL and biopsy of mass - humidified trach collar - NPO - inner cannula change BID - ENT to do first trach cahnge - Have obturator, spare (Shiley 6CN75H) and downsize (Shiley 4CN65H) trachs at bedside - Head of bed elevated >30 degrees - ENT to follow with serial scope exams - s/p 10mg Decadron in ED 05/26 - Aggressive Pulmonary toilet GI / HEPATOBILIARY: GERD Antireflux precautions G tube - Bowel regimen senna, colace via G tube, added miralax on 06/01 - PPI via G tube - Nutren 1.5 switched to night cycle TF Last Bowel Movement: 06/02/23 Stool Description: Large, Loose, Liquid, Brown RENAL / METABOLIC / FLUIDS: Urinary retention with recent UTI w/ pseudomonas Jenkins status Urethral bleeding -had jenkins from OSH -holding PROFESSIONAL DRIVER Flomax 0.4mg daily, convert to doxazosin 2mg via G tube -has failed SC protocol and replacing jenkins on 06/01 for 48H protocol -urology consult on 06/02 HEMATOLOGIC: Lovenox and SCDs for DVT ppx INFECTIOUS DISEASES: COVID 19 infection Apr 2023 UTI sepsis with Pseudomonas Apr 2023 Tuberculosis history - zosyn started 05/26/2023, switched to unasyn on 05/27/23 until 06/01/23 - U/A negative - MRSA negative - quantiferon gold negative ENDOCRINE: T2DM -holding PROFESSIONAL DRIVER Metformin -very high dose ISS -start 10u Lantus qHS 06/02 Hypothyroidism -restarted PROFESSIONAL DRIVER levoxyl 75mcg daily via G tube MUSCULOSKELETAL / DERM: No active issues P.T./O.T. / MOBILITY / WOUND CARE: PT/OT consult after OR PM&R consult LINES / DRAINS / TUBES: LINES ALL Duration Gastrostomy/Enterostomy Gastrostomy-jejunostomy LUQ -- days Peripheral Line Left Antecubital 18 Gauge -- days Airway Neck Trach 4 days Urethral Catheter Coude 1 day GLOBAL ISSUES: Code Status: Limited Code Analgesia: well controlled Sedation: 100% holiday per protocol Delirium/Confusion Assessment Method for ICU (CAM-ICU): negative HOB Elevation: greater than 30 degrees Nutrition: NPO DVT Prophylaxis: chemoprophylaxis with pneumatic compression devices Stress Ulcer Prophylaxis: Histamine 2 Receptor Re. Glycemic Control: well controlled Central Line Necessity Reviewed: N/A Jenkins: reviewed and needed Disposition: transfer to floor Patient's decisional capacity: has capacity to make decisions Communication with Patient/Family: Brief Family Communication. Patient/Family participation: Patient and Spouse/Partner. Goals of Care: wean respiratory parameters, stabilize hemodynamic status, and decrease pain and discomfort Patient was seen and discussed on rounds with DO Warner Redman MD PGY-2 General Surgery Resident [facility] Associated attestation - Viktoriya Ha DO - 06/03/2023 8:11 AM EST I have discussed the patient's management with the resident physician and/or advanced practice provider and agree with the note excepting the changes below. Please refer to the documented findings and plan of care. The patient's service consisted of an evaluation. I have seen and evaluated the patient. This is a late entry for date of service 06/02/23 at 11AM. No acute overnight events. Patient tolerating night cycled tube feeds. Pain well controlled. Jenkins replaced due to hematuria and acute urinary retention requiring multiple straight catheterizations. Patient started on on cardura. Urine output this AM has cleared. Maintain strict NPO, continue trachcollar. Consider addition of Lantus for tighter glucose control. Hold Metformin until discharge. Tbis negative and patient is now off of all antibiotics. Will place PM&R consult for assistance with dispositioning. Medically stable for transfer to med-surg floor under ENT service. Viktoriya Ha DO, MS, [facility] Trauma and Acute Care Surgery Surgical Critical Care * Warner Michael MD - 06/01/2023 6:51 AM EST PROGRESS NOTE - Critical Care [place] [address] [address] Name: Farhad Dash Location: Date: 06/01/2023 Date of admission: 05/26/2023 Hospital length of stay: 6 days PRESENTING PROBLEM: Stridor in setting of known Laryngeal SCC HISTORY OF PRESENT ILLNESS: 82 year old male with history of Laryngeal SCC s/p XRT 2005, GERD, HTN, HLD, [place] s/p PCI and stenting, coming to [facility] ED at recommendation of OSH ENT for stridor concerning for airway compromise. Recently admitted for COVID and pseudomonas UTI at [facility]. He has had persistent dysphonia anddysphagia and has G tube for enteral nutrition. Denies odynophagia. No CP. Has mild dyspnea. 24H EVENTS OF NOTE: AF VSS tolerating trach collar. No complaints. 1100mL UOP req SC Last Bowel Movement: 05/28/23 Stool Description: Large, Loose, Liquid, Brown PAST MEDICAL HISTORY: Past Medical History: Diagnosis Date Diabetes mellitus (HCC) GERD (gastroesophageal reflux disease) History of cancer of larynx Hyperlipidemia Hypertension Myocardial infarction (HCC) PAST SURGICAL HISTORY: Past Surgical History: Procedure Laterality Date CORONARY ARTERY BYPASS, SINGLE EGD, FLEXIBLE,W/ENDOSCOPIC US 07/30/2019 sludge, ascites / [facility] ERCP 10/22/2019 stent removed / [facility] ERCP 07/30/2019 benign biliary papillary stenosis, stent placed / [facility] INCISION OF [place], PLANNED N/A 05/28/2023 TRACHEOSTOMY PLANNED performed by Abimael De La Rosa DO at OR [facility] LARYNGOSCOPY/DILATION N/A 05/28/2023 LARYNGOSCOPY DIRECT DILATION INITIAL performed by Abimael De La Rosa DO at OR [facility] REMOVE CATARACT, INSERT LENS PROSTH Right 06/27/2020 RIGHT EXTRACAPSULAR CATARACT REMOVAL WITH INTRAOCULAR LENS performed by Mason Hassan MD at [facility] REMOVE CATARACT, INSERT LENS PROSTH Left 07/11/2020 LEFT EXTRACAPSULAR CATARACT REMOVAL WITH INTRAOCULAR LENS performed by Mason Hassan MD at OR [facility] TOTAL HIP REPLACEMENT & PROSTHESIS Bilateral FAMILY HISTORY: Family History Problem Relation Age of Onset Hypertension Father SOCIAL HISTORY: Social History Tobacco Use Smoking status: Former Packs/day: 1.00 Years: 30.00 Additional pack years: 0.00 Total pack years: 30.00 Types: Cigarettes Quit date: 1969 Years since quittin.0 Smokeless tobacco: Former Types: Chew Quit date: 2004 Substance Use Topics Alcohol use: Not Currently Drug use: Never PRIOR TO ADMISSION MEDS: Current Outpatient Medications Medication Instructions Amoxicillin (AMOXIL) 2,000 mg, PRN Aspirin 81 mg, Oral, Daily(AM) Calcium Carbonate (CALCIUM-CARB 600) 600 mg, Oral, BID (AM/PM MEALS) Ferrous Sulfate (FEOSOL) 325 mg, Oral, BREAKFAST levothyroxine (LEVOXYL) 75 mcg, Oral, [id number], (at least 30 min prior to breakfast or other meds) MetFORMIN (GLUCOPHAGE) 1,000 mg, Oral, BID (AM/PM MEALS) pantoprazole (PROTONIX) 40 mg, Oral, Daily(AM) rosuvastatin (CRESTOR) 5 mg, Daily(AM) tamsulosin (FLOMAX) 0.4 mg, Oral, Daily(AM) ALLERGIES: Sulfa [sulfa antibiotics] CONSTITUTIONAL DATA / OBJECTIVE: Vital Signs (Most Recent): Pulse: 84 (06/01/23 0800) BP: 111/63 (06/01/23 0800) Resp: 14 (06/01/23 0800) Temp: 36.8 C (98.2 F) (06/01/23 0800) SpO2: 92 % (06/01/23 08) Vital Signs (Last 24 Hours): Pulse Av.5 Min: 71 Max: 105 No data recorded Most Recent Systolic BP Av.4 mmHg Min: 91 mmHg Max: 145 mmHg Most Recent Diastolic BP Av mmHg Min: 48 mmHg Max: 110 mmHg Resp Av.9 Min: 10 Max: 20 Most Recent Temperature Av.5 C Min: 36.28 C Max: 36.78 C SpO2 Av.1 % Min: 92 % Max: 100 % Physical Examination: Constitutional: no acute distress Head: normocephalic, atraumatic. Ears, nose, throat: moist mucous membranes, no nasal discharge, no swelling of neck, hoarse, with expiratory wheeze and stridor.; tracheostomy in place Chest wall: no chest wall tenderness or deformity. Cardiovascular: normal rate, irregular rhythm. Pulmonary: symmetric chest rise, trachea midline, ,mild respiratory distress. Abdomen: soft, non-distended, G tube in place. Genitourinary: normal male Musculoskeletal: 5/5 strength in bilateral upper and bilateral lower extremities. Skin: warm, dry. Intake & Output Summary (Last 24 hours): Intake/Output Summary (Last 24 hours) at 06/01/2023927 Last data filed at 06/01/2023 0800 Gross per 24 hour Intake 1700 ml Output 1625 ml Net 75 ml Laboratory Values: CBC Lab results within last 7 days (see chart for full results) Units 06/01/23 0444 05/31/23 0501 05/30/237 WBC K/uL 5.91 7.14 7.05 HGB g/dL 8.2* 9.4* 8.5* HCT % 26.0* 30.1* 27.8* PLT K/uL 144 160 154 BMP Lab results within last 7 days (see chart for full results) Units 06/01/23 0444 05/31/23 0501 05/30/23446 Sodium mmol/L 137 138 142 Potassium mmol/L 4.2 4.4 3.7 Chloride mmol/L 104 104 105 CO2 mmol/L 30 27 30 BUN mg/dL 16 13 15 Creatinine mg/dL 0.5* 0.5* 0.6 Glucose mg/dL 128* 219* 119 Ca, Mg, Phos Lab results within last 7 days (see chart for full results) Units 06/01/23 0444 05/31/23 0501 05/30/23 0447 Calcium mg/dL 7.9* 7.7* 7.7* Magnesium mg/dL 2.0 2.0 2.0 Phosphorus mg/dL 2.7 2.3* 2.4* Lactic acid Lab results within last 7 days (see chart for full results) Units 05/26/23 1530 Lactate mmol/L 1.2 Arterial Blood Gas No results in the last 7 days - inpatent use only Radiographic Studies: No imaging results in the last 24 hours Cultures: not applicable as of Recent Cultures (2 Weeks) 05/26/2023 05/26/2023 3:30 PM 3:26 PM BLOOD CULTURE GROWTH No growth No growth Assessment & Plan Principal Problem: Stridor (POA: Yes) Active Problems: Difficult airway for intubation (POA: Yes) Laryngeal mass (POA: Yes) Severe protein-energy malnutrition (HCC) (POA: Yes) Benign essential hypertension (POA: Yes) Carotid stenosis (POA: Yes) Overview: Last Assessment & Plan: I had [...] should go to the emergency room immediately. 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 (POA: Yes) Dyslipidemia, goal LDL below 70 (POA: Yes) Gastroesophageal reflux disease (POA: Yes) Hypothyroidism (POA: Yes) Paroxysmal atrial fibrillation (HCC) (POA: Yes) Type 2 diabetes mellitus without complication (HCC) (POA: Yes) Vocal cord dysfunction (POA: Unknown) Tracheostomy status (HCC) (POA: Unknown) POA = Present On Admission SYSTEMS BASED PLAN: NEURO: No active issues - Pain control - Tylenol 650mg q6H via G tube CARDIAC / VASCULAR: History of HTN History of HLD History of CAD / TX -Prior CABG 11/04/2017 CABG x2 with PEREYRA to LAD and vein graft to PDA. Patient also had clipping of the left atrial appendage -11/21/2009 PCI of proximal RCA with 3.5 x 23 Xience drug-eluting stent. 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 Presumed aspiration - ENT consult appreciate recommendations - s/p OR 05/28 for tracheostomy with DL and biopsy of mass - humidified trach collar - NPO - inner cannula change BID - ENT to do first trach cahnge - Have obturator, spare (Lea 6CN75H) and downsize (Lea 4CN65H) trachs at bedside - Head of bed elevated >30 degrees - ENT to follow with serial scope exams - s/p 10mg Decadron in ED 05/26 - Aggressive Pulmonary toilet GI / HEPATOBILIARY: GERD Antireflux precautions G tube - Bowel regimen senna, colace via G tube, added miralax on 06/01 - PPI via G tube - Nutren 1.5 to goal of 65mL Last Bowel Movement: 05/28/23 Stool Description: Large, Loose, Liquid, Brown RENAL / METABOLIC / FLUIDS: Urinary retention with recent UTI w/ pseudomonas Jenkins status -had jenkins from OSH -holding PROFESSIONAL DRIVER Flomax 0.4mg daily, convert to doxazosin 2mg via G tube -has failed SC protocol and replacing jenkins on 06/01 for 48H protocol HEMATOLOGIC: Lovenox and SCDs for DVT ppx INFECTIOUS DISEASES: COVID 19 infection Apr 2023 UTI sepsis with Pseudomonas Apr 2023 Tuberculosis - zosyn started 05/26/2023, switched to unasyn on 05/27/23 until 06/01/23 - U/A negative - MRSA negative - quantiferon gold pending ENDOCRINE: T2DM -holding PROFESSIONAL DRIVER Metformin -start high dose ISS Hypothyroidism -restarted PROFESSIONAL DRIVER levoxyl 75mcg daily via G tube MUSCULOSKELETAL / DERM: No active issues P.T./O.T. / MOBILITY / WOUND CARE: PT/OT consult after OR LINES / DRAINS / TUBES: LINES ALL Duration Gastrostomy/Enterostomy Gastrostomy-jejunostomy LUQ -- days Peripheral Line Left Antecubital 18 Gauge -- days Airway Neck Trach 3 days Urethral Catheter Coude <1 day GLOBAL ISSUES: Code Status: Limited Code Analgesia: well controlled Sedation: 100% holiday per protocol Delirium/Confusion Assessment Method for ICU (CAM-ICU): negative HOB Elevation: greater than 30 degrees Nutrition: NPO DVT Prophylaxis: chemoprophylaxis with pneumatic compression devices Stress Ulcer Prophylaxis: Histamine 2 Receptor Re. Glycemic Control: well controlled Central Line Necessity Reviewed: N/A Jenkins: reviewed and needed Disposition: transfer to floor Patient's decisional capacity: has capacity to make decisions Communication with Patient/Family: Brief Family Communication. Patient/Family participation: Patient and Spouse/Partner. Goals of Care: wean respiratory parameters, stabilize hemodynamic status, and decrease pain and discomfort Patient was seen and discussed on rounds with MD Warner Velasquez MD PGY-2 General Surgery Resident [facility] Associated attestation - Judi Styles MD - 06/01/2023 5:05 PM EST ATTESTATION I saw and evaluated the patient. I have reviewed the trainee note. I have reviewed and independently interpreted the history, physical, chart, labs, and imaging. HOSPITAL COURSE: 82 yo with hx of laryngeal SCC s/p XRT in 2005 who has dysphonia and dysphagia who has been experiencing worsening symptoms, recurrent aspirations (several bouts of aspiration pneumonia), and now increased difficulty breathing. Per his , he has been hospitalized for much of February through present. He was admitted to the ICU with COVID pneumonia, urosepsis secondary to pseudomonas UTI, and failure to thrive. Since the hospitalization he has had an indwelling jenkins. Prior to this, in January, he had a "Large back abscess" that was I&D'd and managed with wound packing. He was recentlyseen by Vascular Surgery for carotid artery stenosis and they stated they would normally offer intervention, but he should have his other more pressing medical issues addressed first. On 05/23 he was seen by ENT in [place] for f/u of his hx of laryngeal cancer and worsening symptoms. He was referred to [facility]. He was to f/u as an outpatient but developed strider so presented to the ER for evaluation. He was evaluated by ENT. Flexible nasopharyngolaryngoscopy showed bilateral vocalfold immobility and copious thick purulent secretions on the right vocal fold. Given concern for air way compromise he was admitted to the ICU and plan for further intervention. PMHx: HTN, DLD, CAD, carotid artery stenosis, s/p RCA DEBORAH stent (2009) and unsuccessful circumflex intervention, s/p CABG x2, paroxysmal A fib, [aroxysmal V tach, hx laryngeal cancer, hx TB, GERD, urinary retention, DM2, hypothyroidism, hearing loss, OA, osteoporosis ACUTE HOSPITAL ISSUES: - Stridor - Immobile vocal cords 24 HOUR EVENTS: Required multiple straight cath so jenkins placed. PLAN: Neuro: - Analgesia: Tylenol PRN - Sedation: n/a HEENT/Resp: - Stridor, bilateral vocal cord immobility - Tracheostomy status - ENT consulted - s/p 05/28 trach - Suction q4h, more often as needed - ONLY IF CONCERN FOR PLUGGING: Saline bullets 2-3cc of normal saline with suctioning 1 to 2 times per day as needed based on crusting in the inner cannula - Suction only the length of the inner cannula and ask the patient to cough (if able) to reduce likelihood of trauma to the tracheal mucosa - Change inner cannula BID, more often as needed - Clean trach site PRN - Have obturator, spare (Shiley 6CN), and downsize (Shiley 4CN75H) trachs at bedside - Humidification via trach collar when off ventilator, ongoing - Cuff down if off ventilator to protect tracheal mucosa - DO NOT change trach ties or cut sutures until 1st trach change - ENT to perform first trach change POD 5-7 - IS, pulmonary hygiene, respiratory driven protocol Cardiovascular: - HTN, HLD, CAD A fib - PROFESSIONAL DRIVER Aspirin 81 mg daily - Hold PROFESSIONAL DRIVER Lisinopril 10 mg daily - Based on fill history does not appear to be on a statin GI: - Diet: Tube feeds - s/p Speech eval: strict NPO - Nausea: Zofran PRN - Bowel regimen: Senna and colace BID; Miralax - GERD: PROFESSIONAL DRIVER Pantoprazole 40 mg daily (substituted Omeprazole 20 mg) Renal/Metabolic/Fluids: - Urinary retention - Jenkins in place since recent hospitalization - 05/28 removed jenkins; 06/01 jenkins placed again - Straight cath/bladder scan - PROFESSIONAL DRIVER Flomax held because cannot be crushed - Continue Doxazosin Endocrine: - DM2: - SSI - Hold PROFESSIONAL DRIVER metformin - Hypothyroidism: PROFESSIONAL DRIVER levothyroxine Infectious Disease: - Concern for infectious component/purulence on exam - Completed Unasyn Heme: - VTE ppx: SCDs, Lovenox Musculoskeletal/Integumentary: - PT/OT Lines/Drains/Tubes: - Maintain 2 large bore IVs - Jenkins (PROFESSIONAL DRIVER - 05/28; 06/01 - present) - GJ tube Misc: - n/a Incidentals: - n/a Was critical care rendered? No. Judi Styles MD, FACS Trauma, Emergency General Surgery, and Critical Care Principal Problem: Stridor (POA: Yes) Active Problems: Difficult airway for intubation (POA: Yes) Laryngeal mass (POA: Yes) Severe protein-energy malnutrition (HCC) (POA: Yes) Benign essential hypertension (POA: Yes) Carotid stenosis (POA: Yes) Overview: Last Assessment & Plan: I had [...] should go to the emergency room immediately. 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 (POA: Yes) Dyslipidemia, goal LDL below 70 (POA: Yes) Gastroesophageal reflux disease (POA: Yes) Hypothyroidism (POA: Yes) Paroxysmal atrial fibrillation (HCC) (POA: Yes) Type 2 diabetes mellitus without complication (HCC) (POA: Yes) Vocal cord dysfunction (POA: Yes) Tracheostomy status (HCC) (POA: No) Urinary retention (POA: Yes) POA = Present On Admission * Warner Michael MD - 05/31/2023 6:49 AM EST PROGRESS NOTE - [facility]-[address] [address] Name: Farhad Dash Jr. Location: Date: 05/26/2023 Time: 4:11 PM Date of admission: 05/26/2023 Hospital length of stay: 5 days PRESENTING PROBLEM: Stridor in setting of known Laryngeal SCC HISTORY OF PRESENT ILLNESS: 82 year old male with history of Laryngeal SCC s/p XRT 2005, GERD, HTN, HLD, [place] s/p PCI and stenting, coming to [facility] ED at recommendation of OSH ENT for stridor concerning for airway compromise. Recently admitted for COVID and pseudomonas UTI at [facility]. He has had persistent dysphonia anddysphagia and has G tube for enteral nutrition. Denies odynophagia. No CP. Has mild dyspnea. 24H EVENTS OF NOTE: AF VSS tolerating trach collar. No complaints. 1700mL UOP req SC Last Bowel Movement: 05/28/23 Stool Description: Large, Loose, Liquid, Brown PAST MEDICAL HISTORY: Past Medical History: Diagnosis Date Diabetes mellitus (HCC) GERD (gastroesophageal reflux disease) History of cancer of larynx Hyperlipidemia Hypertension Myocardial infarction (HCC) PAST SURGICAL HISTORY: Past Surgical History: Procedure Laterality Date CORONARY ARTERY BYPASS, SINGLE EGD, FLEXIBLE,W/ENDOSCOPIC US 07/30/2019 sludge, ascites / [facility] ER[facility] 10/22/2019 stent removed / [facility] 07/30/2019 benign biliary papillary stenosis, stent placed / [facility] INCISION OF [place], PLANNED N/A 05/28/2023 TRACHEOSTOMY PLANNED performed by Abimael De La Rosa DO at [facility] LARYNGOSCOPY/DILATION N/A 05/28/2023 LARYNGOSCOPY DIRECT DILATION INITIAL performed by Abimael De La Rosa DO at [facility] REMOVE CATARACT, INSERT LENS PROSTH Right 06/27/2020 RIGHT EXTRACAPSULAR CATARACT REMOVAL WITH INTRAOCULAR LENS performed by Mason Hassan MD at OR [facility] REMOVE CATARACT, INSERT LENS PROSTH Left 07/11/2020 LEFT EXTRACAPSULAR CATARACT REMOVAL WITH INTRAOCULAR LENS performed by Mason Hassan MD at OR [facility] TOTAL HIP REPLACEMENT & PROSTHESIS Bilateral FAMILY HISTORY: Family History Problem Relation Age of Onset Hypertension Father SOCIAL HISTORY: Social History Tobacco Use Smoking status: Former Packs/day: 1.00 Years: 30.00 Additional pack years: 0.00 Total pack years: 30.00 Types: Cigarettes Quit date: 1969 Years since quittin.0 Smokeless tobacco: Former Types: Chew Quit date: 2004 Substance Use Topics Alcohol use: Not Currently Drug use: Never PRIOR TO ADMISSION MEDS: Current Outpatient Medications Medication Instructions Amoxicillin (AMOXIL) 2,000 mg, PRN Aspirin 81 mg, Oral, Daily(AM) Calcium Carbonate (CALCIUM-CARB 600) 600 mg, Oral, BID (AM/PM MEALS) Ferrous Sulfate (FEOSOL) 325 mg, Oral, BREAKFAST levothyroxine (LEVOXYL) 75 mcg, Oral, [id number], (at least 30 min prior to breakfast or other meds) MetFORMIN (GLUCOPHAGE) 1,000 mg, Oral, BID (AM/PM MEALS) pantoprazole (PROTONIX) 40 mg, Oral, Daily(AM) rosuvastatin (CRESTOR) 5 mg, Daily(AM) tamsulosin (FLOMAX) 0.4 mg, Oral, Daily(AM) ALLERGIES: Sulfa [sulfa antibiotics] CONSTITUTIONAL DATA / OBJECTIVE: Vital Signs (Most Recent): Pulse: 85 (05/31/23699) BP: 87/58 (05/31/23599) Resp: 25 (05/31/23699) Temp: 36.2 C (97.2 F) (05/31/23599) SpO2: 100 % (05/31/23699) Vital Signs (Last 24 Hours): Pulse Av.1 Min: 64 Max: 100 No data recorded Most Recent Systolic BP Av.2 mmHg Min: 87 mmHg Max: 144 mmHg Most Recent Diastolic BP Av.7 mmHg Min: 50 mmHg Max: 77 mmHg Resp Av.5 Min: 12 Max: 31 Most Recent Temperature Av.3 C Min: 36.11 C Max: 36.5 C SpO2 Av.5 % Min: 93 % Max: 100 % Physical Examination: Constitutional: no acute distress Head: normocephalic, atraumatic. Ears, nose, throat: moist mucous membranes, no nasal discharge, no swelling of neck, hoarse, with expiratory wheeze and stridor.; tracheostomy in place Chest wall: no chest wall tenderness or deformity. Cardiovascular: normal rate, irregular rhythm. Pulmonary: symmetric chest rise, trachea midline, ,mild respiratory distress. Abdomen: soft, non-distended, G tube in place. Genitourinary: normal male Musculoskeletal: 5/5 strength in bilateral upper and bilateral lower extremities. Skin: warm, dry. Intake & Output Summary (Last 24 hours): Intake/Output Summary (Last 24 hours) at 05/31/2023 0814 Last data filed at 05/31/2023 0700 Gross per 24 hour Intake 2381.66 ml Output 1725 ml Net 656.66 ml Laboratory Values: CBC Lab results within last 7 days (see chart for full results) Units 05/31/23 0501 05/30/23 0447 05/29/23 0432 WBC K/uL 7.14 7.05 12.06* HGB g/dL 9.4* 8.5* 8.3* HCT % 30.1* 27.8* 26.8* PLT K/uL 160 154 160 BMP Lab results within last 7 days (see chart for full results) Units 05/31/23 0501 05/30/23 0447 05/29/23 0432 Sodium mmol/L 138 142 139 Potassium mmol/L 4.4 3.7 3.8 Chloride mmol/L 104 105 102 CO2 mmol/L 27 30 30 BUN mg/dL 13 15 19 Creatinine mg/dL 0.5* 0.6 0.6 Glucose mg/dL 219* 119 123* Ca, Mg, Phos Lab results within last 7 days (see chart for full results) Units 05/31/23 0501 05/30/23 0447 05/29/23 0432 Calcium mg/dL 7.7* 7.7* 8.1* Magnesium mg/dL 2.0 2.0 2.1 Phosphorus mg/dL 2.3* 2.4* 3.1 Lactic acid Lab results within last 7 days (see chart for full results) Units 05/26/23 1530 Lactate mmol/L 1.2 Arterial Blood Gas No results in the last 7 days - inpatent use only Radiographic Studies: No imaging results in the last 24 hours Cultures: not applicable as of Recent Cultures (2 Weeks) 05/26/2023 05/26/2023 3:30 PM 3:26 PM BLOOD CULTURE GROWTH No growth to date No growth to date Assessment & Plan Principal Problem: Stridor (POA: Yes) Active Problems: Difficult airway for intubation (POA: Yes) Laryngeal mass (POA: Yes) Severe protein-energy malnutrition (HCC) (POA: Yes) Benign essential hypertension (POA: Yes) Carotid stenosis (POA: Yes) Overview: Last Assessment & Plan: I had [...] should go to the emergency room immediately. 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 (POA: Yes) Dyslipidemia, goal LDL below 70 (POA: Yes) Gastroesophageal reflux disease (POA: Yes) Hypothyroidism (POA: Yes) Paroxysmal atrial fibrillation (HCC) (POA: Yes) Type 2 diabetes mellitus without complication (HCC) (POA: Yes) Vocal cord dysfunction (POA: Unknown) Tracheostomy status (HCC) (POA: Unknown) POA = Present On Admission SYSTEMS BASED PLAN: NEURO: No active issues - Pain control - Tylenol 650mg q6H via G tube CARDIAC / VASCULAR: History of HTN History of HLD History of CAD / TX -Prior CABG 11/04/2017 CABG x2 with PEREYRA to LAD and vein graft to PDA. Patient also had clipping of the left atrial appendage -11/21/2009 PCI of proximal RCA with 3.5 x 23 Xience drug-eluting stent. 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 Presumed aspiration - ENT consult appreciate recommendations - s/p OR 05/28 for tracheostomy with DL and biopsy of mass - humidified trach collar - NPO - inner cannula change BID - ENT to do first trach cahnge - Have obturator, spare (Shiley 6CN75H) and downsize (Shiley 4CN65H) trachs at bedside - Head of bed elevated >30 degrees - ENT to follow with serial scope exams - s/p 10mg Decadron in ED 05/26 - Aggressive Pulmonary toilet GI / HEPATOBILIARY: GERD Antireflux precautions G tube - Bowel regimen senna, colace via G tube - PPI via G tube - Nutren 1.5 to goal of 65mL - Speech to see 05/31 to reeval for possible PO meds Last Bowel Movement: 05/28/23 Stool Description: Large, Loose, Liquid, Brown RENAL / METABOLIC / FLUIDS: Urinary retention with recent UTI w/ pseudomonas Jenkins status -had jenkins from OSH -remove jenkins 05/28 -holding PROFESSIONAL DRIVER Flomax 0.4mg daily, convert to doxazosin 2mg via G tube -straight cath protocol HEMATOLOGIC: Lovenox and SCDs for DVT ppx INFECTIOUS DISEASES: COVID 19 infection Apr 2023 UTI sepsis with Pseudomonas Apr 2023 Tuberculosis - zosyn started 05/26/2023, switched to unasyn on 05/27/23 until 06/01/23 - U/A negative - MRSA negative - quantiferon gold pending ENDOCRINE: T2DM -holding PROFESSIONAL DRIVER Metformin -start high dose ISS Hypothyroidism -restarted PROFESSIONAL DRIVER levoxyl 75mcg daily via G tube MUSCULOSKELETAL / DERM: No active issues P.T./O.T. / MOBILITY / WOUND CARE: PT/OT consult after OR LINES / DRAINS / TUBES: LINES ALL Duration Gastrostomy/Enterostomy Gastrostomy-jejunostomy LUQ -- days Peripheral Line Left Antecubital 18 Gauge -- days Airway Neck Trach 2 days Peripheral Line Lower;Right 20 Gauge 2 days GLOBAL ISSUES: Code Status: Limited Code Analgesia: well controlled Sedation: 100% holiday per protocol Delirium/Confusion Assessment Method for ICU (CAM-ICU): negative HOB Elevation: greater than 30 degrees Nutrition: NPO DVT Prophylaxis: chemoprophylaxis with pneumatic compression devices Stress Ulcer Prophylaxis: Histamine 2 Receptor Re. Glycemic Control: well controlled Central Line Necessity Reviewed: N/A Jenkins: reviewed and needed Disposition: transfer to floor at the 72 [address] Patient's decisional capacity: has capacity to make decisions Communication with Patient/Family: Brief Family Communication. Patient/Family participation: Patient and Spouse/Partner. Goals of Care: wean respiratory parameters, stabilize hemodynamic status, and decrease pain and discomfort Patient was seen and discussed on rounds with MD Warner Velasquez MD PGY-2 General Surgery Resident [facility] Associated attestation - Judi Styles MD - 05/31/2023 12:41 PM EST ATTESTATION I saw and evaluated the patient. I have reviewed the trainee note. I have reviewed and independently interpreted the history, physical, chart, labs, and imaging. HOSPITAL COURSE: 82 yo with hx of laryngeal SCC s/p XRT in 2005 who has dysphonia and dysphagia who has been experiencing worsening symptoms, recurrent aspirations (several bouts of aspiration pneumonia), and now increased difficulty breathing. Per his , he has been hospitalized for much of February through present. He was admitted to the ICU with COVID pneumonia, urosepsis secondary to pseudomonas UTI, and failure to thrive. Since the hospitalization he has had an indwelling jenkins. Prior to this, in January, he had a "Large back abscess" that was I&D'd and managed with wound packing. He was recentlyseen by Vascular Surgery for carotid artery stenosis and they stated they would normally offer intervention, but he should have his other more pressing medical issues addressed first. On 05/23 he was seen by ENT in [place] for f/u of his hx of laryngeal cancer and worsening symptoms. He was referred to [facility]. He was to f/u as an outpatient but developed strider so presented to the ER for evaluation. He was evaluated by ENT. Flexible nasopharyngolaryngoscopy showed bilateral vocalfold immobility and copious thick purulent secretions on the right vocal fold. Given concern for air way compromise he was admitted to the ICU and plan for further intervention. PMHx: HTN, DLD, CAD, carotid artery stenosis, s/p RCA DEBORAH stent (2010) and unsuccessful circumflex intervention, s/p CABG x2, paroxysmal A fib, [aroxysmal V tach, hx laryngeal cancer, hx TB, GERD, urinary retention, DM2, hypothyroidism, hearing loss, OA, osteoporosis ACUTE HOSPITAL ISSUES: - Stridor - Immobile vocal cords 24 HOUR EVENTS: Based on Speech eval yesterday still NPO including no meds. Tolerating tube feeds. Requiring straight cath. Path resulted showing invasive SCC. PLAN: Neuro: - Analgesia: Tylenol PRN - Sedation: n/a HEENT/Resp: - Stridor, bilateral vocal cord immobility - Tracheostomy status - ENT consulted - s/p 05/28 trach - Suction q4h, more often as needed - ONLY IF CONCERN FOR PLUGGING: Saline bullets 2-3cc of normal saline with suctioning 1 to 2 times per day as needed based on crusting in the inner cannula - Suction only the length of the inner cannula and ask the patient to cough (if able) to reduce likelihood of trauma to the tracheal mucosa - Change inner cannula BID, more often as needed - Clean trach site PRN - Have obturator, spare (Shiley 6CN), and downsize (Shiley 4CN75H) trachs at bedside - Humidification via trach collar when off ventilator, ongoing - Cuff down if off ventilator to protect tracheal mucosa - DO NOT change trach ties or cut sutures until 1st trach change - ENT to perform first trach change POD 5-7 - IS, pulmonary hygiene, respiratory driven protocol Cardiovascular: - HTN, HLD, CAD A fib - PROFESSIONAL DRIVER Aspirin 81 mg daily - Hold PROFESSIONAL DRIVER Lisinopril 10 mg daily - Based on fill history does not appear to be on a statin GI: - Diet: Tube feeds - Nausea: Zofran PRN - Bowel regimen: Senna and colace BID - GERD: PROFESSIONAL DRIVER Pantoprazole 40 mg daily (substituted Omeprazole 20 mg) Renal/Metabolic/Fluids: - Urinary retention - Jenkins in place since recent hospitalization - 05/28 removed jenkins - Straight cath/bladder scan - PROFESSIONAL DRIVER Flomax Endocrine: - DM2: - SSI - Hold PROFESSIONAL DRIVER metformin - Hypothyroidism: PROFESSIONAL DRIVER levothyroxine Infectious Disease: - Concern for infectious component/purulence on exam - d/c Unasyn Heme: - VTE ppx: SCDs, Lovenox Musculoskeletal/Integumentary: - PT/OT Lines/Drains/Tubes: - Maintain 2 large bore IVs - Jenikns (PROFESSIONAL DRIVER - 05/28) Misc: - n/a Incidentals: - n/a Was critical care rendered? Yes. I have personally provided 30 minutes of critical care time exclusive of time spent on separately billable procedures. Time includes review of laboratory data, radiology results, discussion with consultants, and monitoring for potential decompensation. Interventions were performed as documented above. Upon my evaluation, this patient had a high probability of imminent or life- threatening deterioration due to critical airway, which required my direct attention, intervention, and personal management. Judi Styles MD, FACS Trauma, Emergency General Surgery, and Critical Care Principal Problem: Stridor (POA: Yes) Active Problems: Difficult airway for intubation (POA: Yes) Laryngeal mass (POA: Yes) Severe protein-energy malnutrition (HCC) (POA: Yes) Benign essential hypertension (POA: Yes) Carotid stenosis (POA: Yes) Overview: Last Assessment & Plan: I had [...] should go to the emergency room immediately. 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 (POA: Yes) Dyslipidemia, goal LDL below 70 (POA: Yes) Gastroesophageal reflux disease (POA: Yes) Hypothyroidism (POA: Yes) Paroxysmal atrial fibrillation (HCC) (POA: Yes) Type 2 diabetes mellitus without complication (HCC) (POA: Yes) Vocal cord dysfunction (POA: Unknown) Tracheostomy status (HCC) (POA: Unknown) POA = Present On Admission * Warner Michael MD - 05/30/2023 6:18 AM EST PROGRESS NOTE - Critical Care [place] [facility] [address] Name: Farhad Dash Jr. Location: Date: 05/26/2023 Time: 4:11 PM Date of admission: 05/26/2023 Hospital length of stay: 4 days PRESENTING PROBLEM: Stridor in setting of known Laryngeal SCC HISTORY OF PRESENT ILLNESS: 82 year old male with history of Laryngeal SCC s/p XRT 2005, GERD, HTN, HLD, TX s/p PCI and stenting, coming to [facility] ED at recommendation of OSH ENT for stridor concerning for airway compromise. Recently admitted for COVID and pseudomonas UTI at [facility]. He has had persistent dysphonia anddysphagia and has G tube for enteral nutrition. Denies odynophagia. No CP. Has mild dyspnea. 24H EVENTS OF NOTE: Transferred back to ICU bc Trach is not > 72 hours old. All VSS. Endorses feeling "wiped out". 1100mL UOP req SC Last Bowel Movement: 05/28/23 Stool Description: Large, Loose, Liquid, Brown PAST MEDICAL HISTORY: Past Medical History: Diagnosis Date Diabetes mellitus (HCC) GERD (gastroesophageal reflux disease) History of cancer of larynx Hyperlipidemia Hypertension Myocardial infarction (HCC) PAST SURGICAL HISTORY: Past Surgical History: Procedure Laterality Date CORONARY ARTERY BYPASS, SINGLE EGD, FLEXIBLE,W/ENDOSCOPIC US 07/30/2019 sludge, ascites / [facility] ERCP 10/22/2019 stent removed / [facility] ER[facility] 07/30/2019 benign biliary papillary stenosis, stent placed / [facility] INCISION OF [place], PLANNED N/A 05/28/2023 TRACHEOSTOMY PLANNED performed by Abimael De La Rosa DO at [facility] LARYNGOSCOPY/DILATION N/A 05/28/2023 LARYNGOSCOPY DIRECT DILATION INITIAL performed by Abimael De La Rosa DO at [facility] REMOVE CATARACT, INSERT LENS PROSTH Right 06/27/2020 RIGHT EXTRACAPSULAR CATARACT REMOVAL WITH INTRAOCULAR LENS performed by Mason Hassan MD at [facility] REMOVE CATARACT, INSERT LENS PROSTH Left 07/11/2020 LEFT EXTRACAPSULAR CATARACT REMOVAL WITH INTRAOCULAR LENS performed by Mason Hassan MD at OR [facility] TOTAL HIP REPLACEMENT & PROSTHESIS Bilateral FAMILY HISTORY: Family History Problem Relation Age of Onset Hypertension Father SOCIAL HISTORY: Social History Tobacco Use Smoking status: Former Packs/day: 1.00 Years: 30.00 Additional pack years: 0.00 Total pack years: 30.00 Types: Cigarettes Quit date: 1970 Years since quittin.0 Smokeless tobacco: Former Types: Chew Quit date: 2004 Substance Use Topics Alcohol use: Not Currently Drug use: Never PRIOR TO ADMISSION MEDS: Current Outpatient Medications Medication Instructions Amoxicillin (AMOXIL) 2,000 mg, PRN Aspirin 81 mg, Oral, Daily(AM) Calcium Carbonate (CALCIUM-CARB 600) 600 mg, Oral, BID (AM/PM MEALS) Ferrous Sulfate (FEOSOL) 325 mg, Oral, BREAKFAST levothyroxine (LEVOXYL) 75 mcg, Oral, [id number], (at least 30 min prior to breakfast or other meds) MetFORMIN (GLUCOPHAGE) 1,000 mg, Oral, BID (AM/PM MEALS) pantoprazole (PROTONIX) 40 mg, Oral, Daily(AM) rosuvastatin (CRESTOR) 5 mg, Daily(AM) tamsulosin (FLOMAX) 0.4 mg, Oral, Daily(AM) ALLERGIES: Sulfa [sulfa antibiotics] CONSTITUTIONAL DATA / OBJECTIVE: Vital Signs (Most Recent): Pulse: 71 (05/30/23599) BP: 98/58 (05/30/23599) Resp: 24 (05/30/23599) Temp: 36 C (96.8 F) (05/30/23599) SpO2: 99 % (05/30/23599) Vital Signs (Last 24 Hours): Pulse Av Min: 60 Max: 84 No data recorded Most Recent Systolic BP Av.5 mmHg Min: 89 mmHg Max: 106 mmHg Most Recent Diastolic BP Av.4 mmHg Min: 46 mmHg Max: 69 mmHg Resp Av.9 Min: 6 Max: 38 Most Recent Temperature Av.3 C Min: 36 C Max: 36.61 C SpO2 Av.4 % Min: 92 % Max: 100 % Physical Examination: Constitutional: no acute distress Head: normocephalic, atraumatic. Ears, nose, throat: moist mucous membranes, no nasal discharge, no swelling of neck, hoarse, with expiratory wheeze and stridor.; tracheostomy in place Chest wall: no chest wall tenderness or deformity. Cardiovascular: normal rate, irregular rhythm. Pulmonary: symmetric chest rise, trachea midline, ,mild respiratory distress. Abdomen: soft, non-distended, G tube in place. Genitourinary: normal male Musculoskeletal: 5/5 strength in bilateral upper and bilateral lower extremities. Skin: warm, dry. Intake & Output Summary (Last 24 hours): Intake/Output Summary (Last 24 hours) at 05/30/2023 0618 Last data filed at 05/30/2023 0600 Gross per 24 hour Intake 2411.67 ml Output 1145 ml Net 1266.67 ml Laboratory Values: CBC Lab results within last 7 days (see chart for full results) Units 05/30/237 05/29/23 0432 05/28/23 0545 WBC K/uL 7.05 12.06* 10.77 HGB g/dL 8.5* 8.3* 9.1* HCT % 27.8* 26.8* 28.9* PLT K/uL 154 160 195 BMP Lab results within last 7 days (see chart for full results) Units 05/30/2344605/29/23 0432 05/28/23 0545 Sodium mmol/L 142 139 138 Potassium mmol/L 3.7 3.8 4.3 Chloride mmol/L 105 102 99 CO2 mmol/L 30 30 30 BUN mg/dL 15 19 18 Creatinine mg/dL 0.6 0.6 0.6 Glucose mg/dL 119 123* 150* Ca, Mg, Phos Lab results within last 7 days (see chart for full results) Units 05/30/237 05/29/23 0432 05/28/23 0545 Calcium mg/dL 7.7* 8.1* 8.5 Magnesium mg/dL 2.0 2.1 2.1 Phosphorus mg/dL 2.4* 3.1 3.5 Lactic acid Lab results within last 7 days (see chart for full results) Units 05/26/23 1530 Lactate mmol/L 1.2 Arterial Blood Gas No results in the last 7 days - inpatent use only Radiographic Studies: No imaging results in the last 24 hours Cultures: not applicable as of Recent Cultures (2 Weeks) 05/26/2023 05/26/2023 3:30 PM 3:26 PM BLOOD CULTURE GROWTH No growth to date No growth to date Assessment & Plan Principal Problem: Stridor (POA: Yes) Active Problems: Difficult airway for intubation (POA: Yes) Laryngeal mass (POA: Yes) Severe protein-energy malnutrition (HCC) (POA: Yes) Benign essential hypertension (POA: Yes) Carotid stenosis (POA: Yes) Overview: Last Assessment & Plan: I had [...] should go to the emergency room immediately. 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 (POA: Yes) Dyslipidemia, goal LDL below 70 (POA: Yes) Gastroesophageal reflux disease (POA: Yes) Hypothyroidism (POA: Yes) Paroxysmal atrial fibrillation (HCC) (POA: Yes) Type 2 diabetes mellitus without complication (HCC) (POA: Yes) Vocal cord dysfunction (POA: Unknown) Tracheostomy status (HCC) (POA: Unknown) POA = Present On Admission SYSTEMS BASED PLAN: NEURO: No active issues - Pain control - Tylenol 650mg q6H via G tube CARDIAC / VASCULAR: History of HTN History of HLD History of CAD / TX -Prior CABG 11/04/2017 CABG x2 with PEREYRA to LAD and vein graft to PDA. Patient also had clipping of the left atrial appendage -11/21/2009 PCI of proximal RCA with 3.5 x 23 Xience drug-eluting stent. 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 Presumed aspiration - ENT consult appreciate recommendations - s/p OR 05/28 for tracheostomy with DL and biopsy of mass - humidified trach collar - NPO - inner cannula change BID - ENT to do first trach cahnge - Have obturator, spare (Lea 6CN75H) and downsize (Lea 4CN65H) trachs at bedside - Head of bed elevated >30 degrees - ENT to follow with serial scope exams - s/p 10mg Decadron in ED 05/26 - Aggressive Pulmonary toilet GI / HEPATOBILIARY: GERD Antireflux precautions G tube - Bowel regimen senna, colace via G tube - PPI via G tube - NPO but will start Nutren 1.5 to goal of 65mL Last Bowel Movement: 05/28/23 Stool Description: Large, Loose, Liquid, Brown RENAL / METABOLIC / FLUIDS: Urinary retention with recent UTI w/ pseudomonas Jenkins status -had jenkins from OSH -remove jenkins 05/28 -maintenance fluids - isolyte 100mL/hr while NPO -holding PROFESSIONAL DRIVER Flomax 0.4mg daily, convert to doxazosin 2mg via G tube HEMATOLOGIC: Lovenox and SCDs for DVT ppx INFECTIOUS DISEASES: COVID 19 infection Apr 2023 UTI sepsis with Pseudomonas Apr 2023 Tuberculosis - zosyn started 05/26/2023, switched to unasyn on 05/27/23 until 06/01/23 - U/A negative - MRSA negative - quantiferon gold pending ENDOCRINE: History of T2DM -holding PROFESSIONAL DRIVER Metformin -start high dose ISS History of hypothyroidism -restarted PROFESSIONAL DRIVER levoxyl 75mcg daily via G tube MUSCULOSKELETAL / DERM: No active issues P.T./O.T. / MOBILITY / WOUND CARE: PT/OT consult after OR LINES / DRAINS / TUBES: LINES ALL Duration Gastrostomy/Enterostomy Gastrostomy-jejunostomy LUQ -- days Peripheral Line Left Antecubital 18 Gauge -- days Airway Neck Trach 1 day Peripheral Line Lower;Right 20 Gauge 1 day GLOBAL ISSUES: Code Status: Limited Code Analgesia: well controlled Sedation: 100% holiday per protocol Delirium/Confusion Assessment Method for ICU (CAM-ICU): negative HOB Elevation: greater than 30 degrees Nutrition: NPO DVT Prophylaxis: chemoprophylaxis with pneumatic compression devices Stress Ulcer Prophylaxis: Histamine 2 Receptor Re. Glycemic Control: well controlled Central Line Necessity Reviewed: N/A Jenkins: reviewed and needed Disposition: keep in ICU Patient's decisional capacity: has capacity to make decisions Communication with Patient/Family: Brief Family Communication. Patient/Family participation: Patient and Spouse/Partner. Goals of Care: wean respiratory parameters, stabilize hemodynamic status, and decrease pain and discomfort Patient was seen and discussed on rounds with MD Warner Velasquez MD PGY-2 General Surgery Resident [facility] Associated attestation - Judi Styles MD - 05/30/2023 5:58 PM EST ATTESTATION I saw and evaluated the patient. I have reviewed the trainee note. I have reviewed and independently interpreted the history, physical, chart, labs, and imaging. HOSPITAL COURSE: 82 yo with hx of laryngeal SCC s/p XRT in 2005 who has dysphonia and dysphagia who has been experiencing worsening symptoms, recurrent aspirations (several bouts of aspiration pneumonia), and now increased difficulty breathing. Per his , he has been hospitalized for much of February through present. He was admitted to the ICU with COVID pneumonia, urosepsis secondary to pseudomonas UTI, and failure to thrive. Since the hospitalization he has had an indwelling jenkins. Prior to this, in January, he had a "Large back abscess" that was I&D'd and managed with wound packing. He was recentlyseen by Vascular Surgery for carotid artery stenosis and they stated they would normally offer intervention, but he should have his other more pressing medical issues addressed first. On 05/23 he was seen by ENT in [place] for f/u of his hx of laryngeal cancer and worsening symptoms. He was referred to [facility]. He was to f/u as an outpatient but developed strider so presented to the ER for evaluation. He was evaluated by ENT. Flexible nasopharyngolaryngoscopy showed bilateral vocalfold immobility and copious thick purulent secretions on the right vocal fold. Given concern for air way compromise he was admitted to the ICU and plan for further intervention. PMHx: HTN, DLD, CAD, carotid artery stenosis, s/p RCA DEBORAH stent (2009) and unsuccessful circumflex intervention, s/p CABG x2, paroxysmal A fib, [aroxysmal V tach, hx laryngeal cancer, hx TB, GERD, urinary retention, DM2, hypothyroidism, hearing loss, OA, osteoporosis ACUTE HOSPITAL ISSUES: - Stridor - Immobile vocal cords 24 HOUR EVENTS: Transferred to med surg yesterday, then last night nursing requested transfer back to ICU due to a policy that pts need to stay in the ICU for 72 hours after trach placement PLAN: Neuro: - Analgesia: Tylenol PRN - Sedation: n/a HEENT/Resp: - Stridor, bilateral vocal cord immobility - Tracheostomy status - ENT consulted - s/p 05/28 trach - Suction q4h, more often as needed - ONLY IF CONCERN FOR PLUGGING: Saline bullets 2-3cc of normal saline with suctioning 1 to 2 times per day as needed based on crusting in the inner cannula - Suction only the length of the inner cannula and ask the patient to cough (if able) to reduce likelihood of trauma to the tracheal mucosa - Change inner cannula BID, more often as needed - Clean trach site PRN - Have obturator, spare (Shiley 6CN), and downsize (Shiley 4CN75H) trachs at bedside - Humidification via trach collar when off ventilator, ongoing - Cuff down if off ventilator to protect tracheal mucosa - DO NOT change trach ties or cut sutures until 1st trach change - ENT to perform first trach change POD 5-7 - IS, pulmonary hygiene, respiratory driven protocol Cardiovascular: - HTN, HLD, CAD A fib - PROFESSIONAL DRIVER Aspirin 81 mg daily GI: - Diet: Tube feeds - Nausea: Zofran PRN - Bowel regimen: Senna and colace BID - GERD: PROFESSIONAL DRIVER Pantoprazole 40 mg daily Renal/Metabolic/Fluids: - Urinary retention - Jenkins in place since recent hospitalization - 05/28 removed jenkins - Straight cath/bladder scan - PROFESSIONAL DRIVER Flomax - d/c IVF once tube feeds advanced Endocrine: - DM2: - SSI - Hold PROFESSIONAL DRIVER metformin - Hypothyroidism: PROFESSIONAL DRIVER levothyroxine Infectious Disease: - Concern for infectious component/purulence on exam - Continue Unasyn; confirm duration with ENT Heme: - VTE ppx: SCDs, Lovenox Musculoskeletal/Integumentary: - PT/OT Lines/Drains/Tubes: - Maintain 2 large bore IVs - Jenkins (PROFESSIONAL DRIVER - 05/28) Misc: - n/a Incidentals: - n/a Was critical care rendered? Yes. I have personally provided 30 minutes of critical care time exclusive of time spent on separately billable procedures. Time includes review of laboratory data, radiology results, discussion with consultants, and monitoring for potential decompensation. Interventions were performed as documented above. Upon my evaluation, this patient had a high probability of imminent or life- threatening deterioration due to critical airway, which required my direct attention, intervention, and personal management. Judi Styles MD, FACS Trauma, Emergency General Surgery, and Critical Care Principal Problem: Stridor (POA: Yes) Active Problems: Difficult airway for intubation (POA: Yes) Laryngeal mass (POA: Yes) Severe protein-energy malnutrition (HCC) (POA: Yes) Benign essential hypertension (POA: Yes) Carotid stenosis (POA: Yes) Overview: Last Assessment & Plan: I had [...] should go to the emergency room immediately. 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 (POA: Yes) Dyslipidemia, goal LDL below 70 (POA: Yes) Gastroesophageal reflux disease (POA: Yes) Hypothyroidism (POA: Yes) Paroxysmal atrial fibrillation (HCC) (POA: Yes) Type 2 diabetes mellitus without complication (HCC) (POA: Yes) Vocal cord dysfunction (POA: Unknown) Tracheostomy status (HCC) (POA: Unknown) POA = Present On Admission * Carlos Deutsch DO - 05/29/2023 3:17 PM EST Images from the original note were not included. [facility] A456/A INTERVAL HISTORY: Transfer note 82 year old male past medical history laryngeal SCC s/p XRT (2005), GERD, HTN, HLD, h/o TX s/p PCI,carotid artery stenosis, atrial fibrillation, urinary retention s/p IUBC, T2DM presented to ED withstridor. Flexible nasopharyngolaryngoscopy showed bilateral vocal fold immobility and copious thickpurulent secretions on the right vocal fold. He received racemic epinephrine and dexamethasone. CT neck 05/26 showed soft tissue thickening and enhancement involving the right piriform sinus and rightarytenoepiglottic fold, chondroradionecrosis, severe stenosis of JUAN ALBERTO. Ct chest showed moderate R pl eural effusion, ground glass opacities in RUL, pulmonary nodules, pulmonary artery dilation, ectatic ascending aorta. He was started on IV Zosyn. ENT consulted, s/ direct laryngoscopy, esophagoscopy and biopsy and tracheotomy on 05/28. He has tolerated tach mask He endorses pain at stoma site. There is mild bleeding. He is coughing up thin yellow secretions. He is tolerating tube feeds. Objective Physical Exam Most Recent Vital Signs: BP: 99 mmHg/53 mmHg (05/29/23 1500) Pulse: 66 (05/29/23 1500) Temp: 36 C (05/29/23 1400) Resp: 20 (05/29/23 1500) SpO2: 92 % (05/29/23 1500) General: well-appearing elderly white male, NAD, AAOx3 HEENT: PERRLA, EOMI b/l, conjunctiva pink, sclera white, trach stoma with mild bleeding CV: RRR no murmur, rubs; +S1/S2 Lungs: CTA bilaterally no wheezes rales or rhonchi Abdomen: soft nontender nondistended Extremities: warm, pink, no appreciable lower extremity edema Psych: affect pleasant Gastrostomy/Enterostomy Gastrostomy-jejunostomy LUQ (Active) Number of days: Peripheral Line Left Antecubital 18 Gauge (Active) Number of days: Peripheral Line Lower;Right 20 Gauge (Active) Number of days: 1 Airway Neck Trach (Active) Number of days: 1 STUDIES: Encounter Orders Labs and other studies reviewed with pertinent findings noted below: WBC 12k, Hb 8.3 Glu 123, Ca 8.1 Quant indeterminate RVP neg Bcx ngtd CXR patchy bl opacities. Assessment and Plan IMPRESSION : Principal Problem: Stridor Active Problems: Difficult airway for intubation Laryngeal mass Severe protein-energy malnutrition (HCC) Benign essential hypertension Carotid stenosis 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 Dyslipidemia, goal LDL below 70 Gastroesophageal reflux disease Hypothyroidism Paroxysmal atrial fibrillation (HCC) Type 2 diabetes mellitus without complication (HCC) Vocal cord dysfunction Tracheostomy status (HCC) Resolved Problems: * No resolved hospital problems. * I have examined the patient and consistent with the dietitian's findings found malnutrition presentof Severe (05/27/231134) degree. This is consistent with such due to Fat loss;Muscle loss;Weight loss (05/27/231134). I have also reviewed and agree with the dietitian's plan of care which include Monitored NPO/clear liquid status (05/27/231134). DIFFERENTIAL AND PLAN: 82 year old male past medical history laryngeal SCC s/p XRT (2005), CAD s/p CABG with h/o TX, HTN, HLD, atrial fibrillation, carotid artery stenosis, T2DM, BPH, urinary retention, recent COVID infection presented with stridor, found to have vocal cord paralysis and recurrent laryngeal mass c/f malignancy s/p biopsy and tracheostomy. Stridor Vocal cord paralysis. Laryngeal mass, suspect recurrent malignancy S/p Tracheotomy. Dysphagia s/p GJ tube R/o community acquired pneumonia R/o aspiration pneumonia. Protein calorie malnutrition. -cont humidified tach mask. -IV Zosyn converted to Unasyn per ICU team. -trickle TF advance to goal per GJ tube next 24 hours -repeat Quantiferon. -follow Bcx. -follow Bx -ENT following: -HOB > 30deg "-suction q4h, more often as needed - DO NOT change trach ties or cut sutures until 1st trach change - ENT to perform first trach change POD 5-7 (06/02) - Suction only the length of the inner cannula and ask the patient to cough (if able) to reduce likelihood of trauma to the tracheal mucosa - Change inner cannula BID, more often as needed" -consider palliative care. -nutrition consult Anemia. Suspect in setting of underlying malignancy. Check iron studies, ferritin, retic count Indeterminate Quantiferon. Repeat. CAD, hx TX s/p PCI, CABG. Cont asa, statin. HTN. Held lisinopril. T2DM with steroid induced hyperglycemia. Cont HDSSI. JUAN ALBERTO stenosis. Outpatient vascular surgery follow up, warrants above medical management prior Pulmonary nodules. Follow up per fleischner guidelines BPH. Cont doxazosin. Urinary retention. S/p voiding trial. Required straight cath today. Cont bladder scan qS. Hypothyroidism. Cont levothyroxine. PHARMACOLOGIC VTE PROPHYLAXIS: Enoxaparin CODE STATUS: Limited Code EXPECTED DISCHARGE DATE: No information available 50 minutes Labs and imaging reviewed as above * Duc Cat PA-C - 05/29/2023 6:26 AM EST PROGRESS NOTE - Otolaryngology [facility]-[address] [place] [address] Name: Farhad Dash Jr. Location: [facility] A456/A Date: 05/29/2023 Time: 6:26 AM SUBJECTIVE: S/p direct laryngoscopy and esophagoscopy with biopsy and tracheostomy on 05/28/[address] De La Rosa. No acute issues overnight Resting comfortable Trach in good position OBJECTIVE: Most Recent Vital Signs: BP: 108 mmHg/45 mmHg (05/29/23599) Pulse: 64 (05/29/23599) Temp: 35.89 C (05/29/23599) Resp: 8 (05/29/23599) SpO2: 97 % (05/29/23599) Vital Signs Last 24 Hours: Systolic BP: Most Recent Systolic BP Av.1 mmHg Min: 88 mmHg Max: 118 mmHg Temperature: Most Recent Temperature Av.1 C Min: 35.78 C Max: 36.28 C Pulse: Pulse Av.3 Min: 64 Max: 90 Respirations: Resp Av.6 Min: 7 Max: 40 SpO2: SpO2 Av.8 % Min: 89 % Max: 100 % PHYSICAL EXAMINATION: General: resting in bed, Oral Cavity: mucosa is moist without visualized or palpable lesion, tongue exhibits normal mobility. Neck: 6CN75H trach in good position secured with trach ties an sutures, LABS: Labs reviewed as indicated below: CBC Lab Results Component Value Date/Time WBC 12.06 (H) 05/29/2023 04:32 AM WBC 16.5 (H) 05/06/2023 04:37 PM WBC 8.31 12/29/2017 02:34 PM HGB 8.3 (L) 05/29/2023 04:32 AM HGB 6.6 (L) 05/07/2023 06:38 PM HGB 11.9 (L) 12/29/2017 02:34 PM HCT 26.8 (L) 05/29/2023 04:32 AM HCT 36.9 (L) 12/29/2017 02:34 PM PLT 160 05/29/2023 04:32 AM PLT 318 05/06/2023 04:37 PM PLT 239 12/29/2017 02:34 PM IMAGING: CT Neck 05/26: IMPRESSION 1. Mucosal irregularity with soft tissue thickening and enhancement involving the right piriform sinus and right arytenoepiglottic fold. Findings are nonspecific, and correlation with laryngoscopy findings is recommended. Asymmetric medial position of the right arytenoid cartilage may be secondary to vocal cord dysfunction. 2. 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 3. No suspicious cervical lymphadenopathy is identified. 4. Advanced atherosclerosis with severe stenosis of the right internal carotid artery. 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 Now s/p direct laryngoscopy, esophagoscopy and biopsy; tracheotomy on05/28/[address] De La Rosa. PLAN: First 24 hours - Suction q2h, more often as needed > 24 hours - suction q4h, more often as needed - ONLY IF CONCERN FOR PLUGGING: Saline bullets 2-3cc of normal saline with suctioning 1 to 2 times per day as needed based on crusting in the inner cannula - Suction only the length of the inner cannula and ask the patient to cough (if able) to reduce likelihood of trauma to the tracheal mucosa - Change inner cannula BID, more often as needed - Clean trach site PRN - Have obturator, spare (Shiley 6CN), and downsize (Shiley 4CN75H) trachs at bedside - Humidification via trach collar when off ventilator, ongoing - Cuff down if off ventilator to protect tracheal mucosa - DO NOT change trach ties or cut sutures until 1st trach change - ENT to perform first trach change POD 5-7 - remainder of care per primary team Patient to be discussed with Dr. De La Rosa. Duc Cat PA-C 05/29/2023 6:31 AM * Warner Michael MD - 05/29/2023 6:01 AM EST PROGRESS NOTE - Critical Care [facility] [address] [address] Name: Farhad Dash Jr. Location: Date: 05/26/2023 Time: 4:11 PM Date of admission: 05/26/2023 Hospital length of stay: 3 days PRESENTING PROBLEM: Stridor in setting of known Laryngeal SCC HISTORY OF PRESENT ILLNESS: 82 year old male with history of Laryngeal SCC s/p XRT 2005, GERD, HTN, HLD, TX s/p PCI and stenting, coming to [facility] ED at recommendation of OSH ENT for stridor concerning for airway compromise. Recently admitted for COVID and pseudomonas UTI at [facility]. He has had persistent dysphonia anddysphagia and has G tube for enteral nutrition. Denies odynophagia. No CP. Has mild dyspnea. 24H EVENTS OF NOTE: Successful tracheostomy yesterday. Since he has been doing well and has no SOB. Tolerating trach collar. BP low with SBP 90s. Last BM 05/28. 755mL UOP req SC PAST MEDICAL HISTORY: Past Medical History: Diagnosis Date Diabetes mellitus (HCC) GERD (gastroesophageal reflux disease) History of cancer of larynx Hyperlipidemia Hypertension Myocardial infarction (HCC) PAST SURGICAL HISTORY: Past Surgical History: Procedure Laterality Date CORONARY ARTERY BYPASS, SINGLE EGD, FLEXIBLE,W/ENDOSCOPIC US 07/30/2019 sludge, ascites / [facility] ERCP 10/22/2019 stent removed / [facility] ER[facility] 07/30/2019 benign biliary papillary stenosis, stent placed / [facility] REMOVE CATARACT, INSERT LENS PROSTH Right 06/27/2020 RIGHT EXTRACAPSULAR CATARACT REMOVAL WITH INTRAOCULAR LENS performed by Mason Hassan MD at OR [facility] REMOVE CATARACT, INSERT LENS PROSTH Left 07/11/2020 LEFT EXTRACAPSULAR CATARACT REMOVAL WITH INTRAOCULAR LENS performed by Mason Hassan MD at [facility] TOTAL HIP REPLACEMENT & PROSTHESIS Bilateral FAMILY HISTORY: Family History Problem Relation Age of Onset Hypertension Father SOCIAL HISTORY: Social History Tobacco Use Smoking status: Former Packs/day: 1.00 Years: 30.00 Additional pack years: 0.00 Total pack years: 30.00 Types: Cigarettes Quit date: 1969 Years since quittin.0 Smokeless tobacco: Former Types: Chew Quit date: 2004 Substance Use Topics Alcohol use: Not Currently Drug use: Never PRIOR TO ADMISSION MEDS: Current Outpatient Medications Medication Instructions Amoxicillin (AMOXIL) 2,000 mg, PRN Aspirin 81 mg, Oral, Daily(AM) Calcium Carbonate (CALCIUM-CARB 600) 600 mg, Oral, BID (AM/PM MEALS) Ferrous Sulfate (FEOSOL) 325 mg, Oral, BREAKFAST levothyroxine (LEVOXYL) 75 mcg, Oral, [id number], (at least 30 min prior to breakfast or other meds) MetFORMIN (GLUCOPHAGE) 1,000 mg, Oral, BID (AM/PM MEALS) pantoprazole (PROTONIX) 40 mg, Oral, Daily(AM) rosuvastatin (CRESTOR) 5 mg, Daily(AM) tamsulosin (FLOMAX) 0.4 mg, Oral, Daily(AM) ALLERGIES: Sulfa [sulfa antibiotics] CONSTITUTIONAL DATA / OBJECTIVE: Vital Signs (Most Recent): Pulse: 72 (05/29/23 0900) BP: 95/55 (05/29/23899) Resp: 11 (05/29/23899) Temp: 36.5 C (97.7 F) (05/29/23799) SpO2: 95 % (05/29/23899) Vital Signs (Last 24 Hours): Pulse Av.5 Min: 64 Max: 90 No data recorded Most Recent Systolic BP Av.9 mmHg Min: 88 mmHg Max: 114 mmHg Most Recent Diastolic BP Av.4 mmHg Min: 45 mmHg Max: 84 mmHg Resp Av.5 Min: 7 Max: 40 Most Recent Temperature Av.1 C Min: 35.78 C Max: 36.5 C SpO2 Av.2 % Min: 89 % Max: 100 % Physical Examination: Constitutional: no acute distress, chronically ill appearing, Ill appearing. Head: normocephalic, atraumatic. Ears, nose, throat: moist mucous membranes, no nasal discharge, no swelling of neck, hoarse, with expiratory wheeze and stridor. Chest wall: no chest wall tenderness or deformity. Cardiovascular: normal rate, irregular rhythm. Pulmonary: symmetric chest rise, trachea midline, ,mild respiratory distress. Abdomen: soft, non-distended, G tube in place. Genitourinary: jenkins catheter present. Musculoskeletal: 5/5 strength in bilateral upper and bilateral lower extremities. Skin: warm, dry. Intake & Output Summary (Last 24 hours): Intake/Output Summary (Last 24 hours) at 05/29/2023 0935 Last data filed at 05/29/2023 0900 Gross per 24 hour Intake 3744.01 ml Output 645 ml Net 3099.01 ml Laboratory Values: CBC Lab results within last 7 days (see chart for full results) Units 05/29/23 0432 05/28/23 0545 05/27/23 0525 WBC K/uL 12.06* 10.77 5.75 HGB g/dL 8.3* 9.1* 9.4* HCT % 26.8* 28.9* 30.6* PLT K/uL 160 195 206 BMP Lab results within last 7 days (see chart for full results) Units 05/29/23 0432 05/28/23 0545 05/27/23 0525 Sodium mmol/L 139 138 137 Potassium mmol/L 3.8 4.3 4.8 Chloride mmol/L 102 99 98 CO2 mmol/L 30 30 30 BUN mg/dL 19 18 19 Creatinine mg/dL 0.6 0.6 0.6 Glucose mg/dL 123* 150* 204* Ca, Mg, Phos Lab results within last 7 days (see chart for full results) Units 05/29/23 0432 05/28/23 0545 05/27/23 0525 Calcium mg/dL 8.1* 8.5 9.0 Magnesium mg/dL 2.1 2.1 2.0 Phosphorus mg/dL 3.1 3.5 4.8 Lactic acid Lab results within last 7 days (see chart for full results) Units 05/26/23 1530 Lactate mmol/L 1.2 Arterial Blood Gas No results in the last 7 days - inpatent use only Radiographic Studies: XR CHEST 1 VIEW Result Date: 05/28/2023 IMPRESSION 1. Tracheostomy tube appears well position. 2. Patchy bilateral airspace opacities, better evidenced on the recent CT, could represent multifocal infectious process. Cultures: not applicable as of Recent Cultures (2 Weeks) 05/26/2023 05/26/2023 3:30 PM 3:26 PM BLOOD CULTURE GROWTH No growth to date No growth to date Assessment & Plan Principal Problem: Stridor (POA: Yes) Active Problems: Difficult airway for intubation (POA: Yes) Laryngeal mass (POA: Yes) Severe protein-energy malnutrition (HCC) (POA: Yes) Benign essential hypertension (POA: Yes) Carotid stenosis (POA: Yes) Overview: Last Assessment & Plan: I had [...] should go to the emergency room immediately. 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 (POA: Yes) Dyslipidemia, goal LDL below 70 (POA: Yes) Gastroesophageal reflux disease (POA: Yes) Hypothyroidism (POA: Yes) Paroxysmal atrial fibrillation (HCC) (POA: Yes) Type 2 diabetes mellitus without complication (HCC) (POA: Yes) Vocal cord dysfunction (POA: Unknown) Tracheostomy status (HCC) (POA: Unknown) POA = Present On Admission SYSTEMS BASED PLAN: NEURO: No active issues - Pain control - Tylenol 650mg q6H via G tube CARDIAC / VASCULAR: History of HTN History of HLD History of CAD / TX -Prior CABG 11/04/2017 CABG x2 with PEREYRA to LAD and vein graft to PDA. Patient also had clipping of the left atrial appendage -11/21/2009 PCI of proximal RCA with 3.5 x 23 Xience drug-eluting stent. 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 Presumed aspiration - ENT consult appreciate recommendations - s/p OR 05/28 for tracheostomy with DL and biopsy of mass - humidified trach collar - NPO - inner cannula change BID - ENT to do first trach cahnge - Have obturator, spare (Shiley 6CN75H) and downsize (Shiley 4CN65H) trachs at bedside - Head of bed elevated >30 degrees - ENT to follow with serial scope exams - s/p 10mg Decadron in ED 05/26 - Aggressive Pulmonary toilet GI / HEPATOBILIARY: GERD Antireflux precautions G tube - Bowel regimen senna, colace via G tube - PPI via G tube - NPO but will start Nutren 1.5 at [facility] RENAL / METABOLIC / FLUIDS: Urinary retention with recent UTI w/ pseudomonas Jenkins status -had jenkins from OSH -remove jenkins 05/28 -maintenance fluids - isolyte 100mL/hr while NPO -holding PROFESSIONAL DRIVER Flomax 0.4mg daily, convert to doxazosin 2mg via G tube HEMATOLOGIC: Lovenox and SCDs for DVT ppx INFECTIOUS DISEASES: COVID 19 infection Apr 2023 UTI sepsis with Pseudomonas Apr 2023 ?Tuberculosis - zosyn started 05/26/2023, switched to unasyn on 05/27/23 - U/A negative - MRSA negative - quantiferon gold pending ENDOCRINE: History of T2DM -holding PROFESSIONAL DRIVER Metformin -start high dose ISS History of hypothyroidism -restarted PROFESSIONAL DRIVER levoxyl 75mcg daily via G tube MUSCULOSKELETAL / DERM: No active issues P.T./O.T. / MOBILITY / WOUND CARE: PT/OT consult after OR LINES / DRAINS / TUBES: LINES ALL Duration Gastrostomy/Enterostomy Gastrostomy-jejunostomy LUQ -- days Peripheral Line Left Antecubital 18 Gauge -- days Airway Neck Trach <1 day Peripheral Line Lower;Right 20 Gauge <1 day GLOBAL ISSUES: Code Status: Limited Code Analgesia: well controlled Sedation: 100% holiday per protocol Delirium/Confusion Assessment Method for ICU (CAM-ICU): negative HOB Elevation: greater than 30 degrees Nutrition: NPO DVT Prophylaxis: chemoprophylaxis with pneumatic compression devices Stress Ulcer Prophylaxis: Histamine 2 Receptor Re. Glycemic Control: well controlled Central Line Necessity Reviewed: N/A Jenkins: reviewed and needed Disposition: transfer to floor Patient's decisional capacity: has capacity to make decisions Communication with Patient/Family: Brief Family Communication. Patient/Family participation: Patient and Spouse/Partner. Goals of Care: wean respiratory parameters, stabilize hemodynamic status, and decrease pain and discomfort Patient was seen and discussed on rounds with MD Warner Velasquez MD PGY-2 General Surgery Resident [facility] Associated attestation - Judi Styles MD - 05/30/2023 5:55 PM EST ATTESTATION I saw and evaluated the patient. I have reviewed the trainee note. I have reviewed and independently interpreted the history, physical, chart, labs, and imaging. HOSPITAL COURSE: 82 yo with hx of laryngeal SCC s/p XRT in 2005 who has dysphonia and dysphagia who has been experiencing worsening symptoms, recurrent aspirations (several bouts of aspiration pneumonia), and now increased difficulty breathing. Per his , he has been hospitalized for much of February through present. He was admitted to the ICU with COVID pneumonia, urosepsis secondary to pseudomonas UTI, and failure to thrive. Since the hospitalization he has had an indwelling jenkins. Prior to this, in January, he had a "Large back abscess" that was I&D'd and managed with wound packing. He was recentlyseen by Vascular Surgery for carotid artery stenosis and they stated they would normally offer intervention, but he should have his other more pressing medical issues addressed first. On 05/23 he was seen by ENT in [place] for f/u of his hx of laryngeal cancer and worsening symptoms. He was referred to [facility]. He was to f/u as an outpatient but developed strider so presented to the ER for evaluation. He was evaluated by ENT. Flexible nasopharyngolaryngoscopy showed bilateral vocalfold immobility and copious thick purulent secretions on the right vocal fold. Given concern for air way compromise he was admitted to the ICU and plan for further intervention. PMHx: HTN, DLD, CAD, carotid artery stenosis, s/p RCA DEBORAH stent (2010) and unsuccessful circumflex intervention, s/p CABG x2, paroxysmal A fib, [aroxysmal V tach, hx laryngeal cancer, hx TB, GERD, urinary retention, DM2, hypothyroidism, hearing loss, OA, osteoporosis ACUTE HOSPITAL ISSUES: - Stridor - Immobile vocal cords 24 HOUR EVENTS: No issues post-op. Airway stable. PLAN: Neuro: - Analgesia: Tylenol PRN - Sedation: n/a HEENT/Resp: - Stridor, bilateral vocal cord immobility - Tracheostomy status - ENT consulted - s/p 05/28 trach - First 24 hours: Suction q2h, more often as needed - > 24 hours: suction q4h, more often as needed - ONLY IF CONCERN FOR PLUGGING: Saline bullets 2-3cc of normal saline with suctioning 1 to 2 times per day as needed based on crusting in the inner cannula - Suction only the length of the inner cannula and ask the patient to cough (if able) to reduce likelihood of trauma to the tracheal mucosa - Change inner cannula BID, more often as needed - Clean trach site PRN - Have obturator, spare (Shiley 6CN), and downsize (Shiley 4CN75H) trachs at bedside - Humidification via trach collar when off ventilator, ongoing - Cuff down if off ventilator to protect tracheal mucosa - DO NOT change trach ties or cut sutures until 1st trach change - ENT to perform first trach change POD 5-7 - IS, pulmonary hygiene, respiratory driven protocol Cardiovascular: - HTN, HLD, CAD A fib - PROFESSIONAL DRIVER Aspirin 81 mg daily GI: - Diet: start trickle feeds - Nausea: Zofran PRN - Bowel regimen: Senna and colace BID - GERD: PROFESSIONAL DRIVER Pantoprazole 40 mg daily Renal/Metabolic/Fluids: - Urinary retention - Jenkins in place since recent hospitalization - 05/28 removed jenkins - Straight cath/bladder scan - PROFESSIONAL DRIVER Flomax Endocrine: - DM2: - SSI - Hold PROFESSIONAL DRIVER metformin - Hypothyroidism: PROFESSIONAL DRIVER levothyroxine Infectious Disease: - Concern for infectious component/purulence on exam - Continue Unasyn Heme: - VTE ppx: SCDs, Lovenox Musculoskeletal/Integumentary: - PT/OT Lines/Drains/Tubes: - Maintain 2 large bore IVs - Jenkins (PROFESSIONAL DRIVER - 05/28) Misc: - n/a Incidentals: - n/a Was critical care rendered? Yes. I have personally provided 35 minutes of critical care time exclusive of time spent on separately billable procedures. Time includes review of laboratory data, radiology results, discussion with consultants, and monitoring for potential decompensation. Interventions were performed as documented above. Upon my evaluation, this patient had a high probability of imminent or life- threatening deterioration due to critical airway, which required my direct attention, intervention, and personal management. Judi Styles MD, FACS Trauma, Emergency General Surgery, and Critical Care Principal Problem: Stridor (POA: Yes) Active Problems: Difficult airway for intubation (POA: Yes) Laryngeal mass (POA: Yes) Severe protein-energy malnutrition (HCC) (POA: Yes) Benign essential hypertension (POA: Yes) Carotid stenosis (POA: Yes) Overview: Last Assessment & Plan: I had [...] should go to the emergency room immediately. 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 (POA: Yes) Dyslipidemia, goal LDL below 70 (POA: Yes) Gastroesophageal reflux disease (POA: Yes) Hypothyroidism (POA: Yes) Paroxysmal atrial fibrillation (HCC) (POA: Yes) Type 2 diabetes mellitus without complication (HCC) (POA: Yes) Vocal cord dysfunction (POA: Unknown) Tracheostomy status (HCC) (POA: Unknown) POA = Present On Admission * Vipul Mcdonald DO - 05/28/2023 7:42 AM EST Images from the original note were not included. PROGRESS NOTE - [facility] Care [facility]-[address] [id number] Name: Farhad Dash Jr. Location: Date: 05/26/2023 Time: 4:11 PM Date of admission: 05/26/2023 Hospital length of stay: 2 days PRESENTING PROBLEM: Stridor in setting of known Laryngeal SCC HISTORY OF PRESENT ILLNESS: 82 year old male with history of Laryngeal SCC s/p XRT 2005, GERD, HTN, HLD, TX s/p PCI and stenting, coming to [facility] ED at recommendation of OSH ENT for stridor concerning for airway compromise. Recently admitted for COVID and pseudomonas UTI at [facility]. He has had persistent dysphonia anddysphagia and has G tube for enteral nutrition. Denies odynophagia. No CP. Has mild dyspnea. 24H EVENTS OF NOTE: Discussed tracheostomy with ENT. Going to proceed today. Remained HDS overnight on face tent oxygen. 1.45L UOP PAST MEDICAL HISTORY: Past Medical History: Diagnosis Date Diabetes mellitus (HCC) GERD (gastroesophageal reflux disease) History of cancer of larynx Hyperlipidemia Hypertension Myocardial infarction (HCC) PAST SURGICAL HISTORY: Past Surgical History: Procedure Laterality Date CORONARY ARTERY BYPASS, SINGLE EGD, FLEXIBLE,W/ENDOSCOPIC US 07/30/2019 sludge, ascites / [facility] ERCP 10/22/2019 stent removed / [facility] ER[facility] 07/30/2019 benign biliary papillary stenosis, stent placed / [facility] REMOVE CATARACT, INSERT LENS PROSTH Right 06/27/2020 RIGHT EXTRACAPSULAR CATARACT REMOVAL WITH INTRAOCULAR LENS performed by Mason Hassan MD at [facility] REMOVE CATARACT, INSERT LENS PROSTH Left 07/11/2020 LEFT EXTRACAPSULAR CATARACT REMOVAL WITH INTRAOCULAR LENS performed by Mason Hassan MD at [facility] TOTAL HIP REPLACEMENT & PROSTHESIS Bilateral FAMILY HISTORY: Family History Problem Relation Age of Onset Hypertension Father SOCIAL HISTORY: Social History Tobacco Use Smoking status: Former Packs/day: 1.00 Years: 30.00 Additional pack years: 0.00 Total pack years: 30.00 Types: Cigarettes Quit date: 1969 Years since quittin.0 Smokeless tobacco: Former Types: Chew Quit date: 2004 Substance Use Topics Alcohol use: Not Currently Drug use: Never PRIOR TO ADMISSION MEDS: Current Outpatient Medications Medication Instructions Amoxicillin (AMOXIL) 2,000 mg, PRN Aspirin 81 mg, Oral, Daily(AM) Calcium Carbonate (CALCIUM-CARB 600) 600 mg, Oral, BID (AM/PM MEALS) Ferrous Sulfate (FEOSOL) 325 mg, Oral, BREAKFAST levothyroxine (LEVOXYL) 75 mcg, Oral, [id number], (at least 30 min prior to breakfast or other meds) MetFORMIN (GLUCOPHAGE) 1,000 mg, Oral, BID (AM/PM MEALS) pantoprazole (PROTONIX) 40 mg, Oral, Daily(AM) rosuvastatin (CRESTOR) 5 mg, Daily(AM) tamsulosin (FLOMAX) 0.4 mg, Oral, Daily(AM) ALLERGIES: Sulfa [sulfa antibiotics] CONSTITUTIONAL DATA / OBJECTIVE: Vital Signs (Most Recent): Pulse: 84 (05/28/23699) BP: 111/72 (05/28/23699) Resp: 12 (05/28/23699) Temp: 36.4 C (97.5 F) (05/28/23599) SpO2: 93 % (05/28/23699) Vital Signs (Last 24 Hours): Pulse Av.5 Min: 78 Max: 92 No data recorded Most Recent Systolic BP Av.6 mmHg Min: 90 mmHg Max: 121 mmHg Most Recent Diastolic BP Av.4 mmHg Min: 52 mmHg Max: 97 mmHg Resp Av.2 Min: 11 Max: 31 Most Recent Temperature Av.3 C Min: 36 C Max: 36.5 C SpO2 Av.5 % Min: 89 % Max: 100 % Physical Examination: Constitutional: no acute distress, chronically ill appearing, Ill appearing. Head: normocephalic, atraumatic. Ears, nose, throat: moist mucous membranes, no nasal discharge, no swelling of neck, hoarse, with expiratory wheeze and stridor. Chest wall: no chest wall tenderness or deformity. Cardiovascular: normal rate, irregular rhythm. Pulmonary: symmetric chest rise, trachea midline, ,mild respiratory distress. Abdomen: soft, non-distended, G tube in place. Genitourinary: jenkins catheter present. Musculoskeletal: 5/5 strength in bilateral upper and bilateral lower extremities. Skin: warm, dry. Intake & Output Summary (Last 24 hours): Intake/Output Summary (Last 24 hours) at 05/28/2023 0742 Last data filed at 05/28/2023 0600 Gross per 24 hour Intake 2700 ml Output 1400 ml Net 1300 ml Laboratory Values: CBC Lab results within last 7 days (see chart for full results) Units 05/28/23 0545 05/27/23 0525 05/26/23 1359 WBC K/uL 10.77 5.75 9.96 HGB g/dL 9.1* 9.4* 9.3* HCT % 28.9* 30.6* 29.8* PLT K/uL 195 206 236 BMP Lab results within last 7 days (see chart for full results) Units 05/28/23 0545 05/27/23 0525 05/26/23 1359 Sodium mmol/L 138 137 133* Potassium mmol/L 4.3 4.8 4.7 Chloride mmol/L 99 98 94* CO2 mmol/L 30 30 34* BUN mg/dL 18 19 22* Creatinine mg/dL 0.6 0.6 0.6 Glucose mg/dL 150* 204* 201* Ca, Mg, Phos Lab results within last 7 days (see chart for full results) Units 05/28/23 0545 05/27/23 0525 05/26/23 1359 Calcium mg/dL 8.5 9.0 9.2 Magnesium mg/dL 2.1 2.0 -- Phosphorus mg/dL 3.5 4.8 -- Lactic acid Lab results within last 7 days (see chart for full results) Units 05/26/23 1530 Lactate mmol/L 1.2 Arterial Blood Gas No results in the last 7 days - inpatent use only Radiographic Studies: No imaging results in the last 24 hours Cultures: not applicable as of Recent Cultures (2 Weeks) 05/26/2023 05/26/2023 3:30 PM 3:26 PM BLOOD CULTURE GROWTH No growth to date No growth to date Assessment & Plan Principal Problem: Stridor (POA: Yes) Active Problems: Difficult airway for intubation (POA: Yes) Laryngeal mass (POA: Yes) Severe protein-energy malnutrition (HCC) (POA: Yes) Benign essential hypertension (POA: Yes) Carotid stenosis (POA: Yes) Overview: Last Assessment & Plan: I had [...] should go to the emergency room immediately. 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 (POA: Yes) Dyslipidemia, goal LDL below 70 (POA: Yes) Gastroesophageal reflux disease (POA: Yes) Hypothyroidism (POA: Yes) Paroxysmal atrial fibrillation (HCC) (POA: Yes) Type 2 diabetes mellitus without complication (HCC) (POA: Yes) Vocal cord dysfunction (POA: Unknown) POA = Present On Admission SYSTEMS BASED PLAN: NEURO: No active issues Pain control - Tylenol 650mg q6H via G tube, oxy 5mg CARDIAC / VASCULAR: History of HTN History of HLD History of CAD / TX -Prior CABG 11/04/2017 CABG x2 with PEREYRA to LAD and vein graft to PDA. Patient also had clipping of the left atrial appendage -11/21/2009 PCI of proximal RCA with 3.5 x 23 Xience drug-eluting stent. 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 - [place] scope and fiberoptic scope available in the case of potential intubation - Patient should be intubatable from above w/ a 5.5 or 6.0 ETT based on scope exam vs surgical airway by ENT. - Trach kit at bedside - Humidified face tent - Heliox to the bedside - Head of bed elevated >30 degrees - ENT to follow with serial scope exams - If there is any respiratory distress or concerning signs, please contact ENT immediately for re-evaluation -Plan for Tracheostomy and DL/biopsy today Keep NPO - s/p 10mg Decadron in ED 05/26 - 8mg IV decadron q8H - nebulized racemic epinephrine q1H PRN - Aggressive Pulmonary toilet GI / HEPATOBILIARY: GERD Antireflux precautions G tube - Bowel regimen senna, colace via G tube - will do BID PPI IV - TF when post op RENAL / METABOLIC / FLUIDS: Urinary retention with recent UTI w/ pseudomonas Jenkins status -has jenkins from OSH -remove jenkins today -maintenance fluids - isolyte 100mL/hr while NPO -holding PROFESSIONAL DRIVER Flomax 0.4mg daily, will convert to doxazosin 2mg via G tube HEMATOLOGIC: Lovenox and SCDs for DVT ppx INFECTIOUS DISEASES: COVID 19 infection Apr 2023 UTI sepsis with Pseudomonas Apr 2023 ?Tuberculosis - zosyn started 05/26/2023, switched to unasyn on 05/27/23 - ancef precision grinder for OR - U/A negative - MRSA negative - quantiferon gold pending ENDOCRINE: History of T2DM -holding PROFESSIONAL DRIVER Metformin -start high dose ISS History of hypothyroidism -restarted PROFESSIONAL DRIVER levoxyl 75mcg daily via G tube MUSCULOSKELETAL / DERM: No active issues P.T./O.T. / MOBILITY / WOUND CARE: PT/OT consult after OR LINES / DRAINS / TUBES: LINES ALL Duration Gastrostomy/Enterostomy Gastrostomy-jejunostomy LUQ -- days Peripheral Line Left Antecubital 18 Gauge -- days Urethral Catheter -- days GLOBAL ISSUES: Code Status: Limited Code Analgesia: well controlled Sedation: 100% holiday per protocol Delirium/Confusion Assessment Method for ICU (CAM-ICU): negative HOB Elevation: greater than 30 degrees Nutrition: NPO DVT Prophylaxis: chemoprophylaxis with pneumatic compression devices Stress Ulcer Prophylaxis: Histamine 2 Receptor Re. Glycemic Control: well controlled Central Line Necessity Reviewed: N/A Jenkins: reviewed and needed Disposition: keep in ICU Patient's decisional capacity: has capacity to make decisions Communication with Patient/Family: Brief Family Communication. Patient/Family participation: Patient and Spouse/Partner. Goals of Care: wean respiratory parameters, stabilize hemodynamic status, and decrease pain and discomfort Patient was seen and discussed on rounds with MD Vipul Velasquez DO [facility] Associated attestation - Judi Styles MD - 05/28/2023 3:40 PM EST ATTESTATION I saw and evaluated the patient. I have reviewed the trainee note. I have reviewed and independently interpreted the history, physical, chart, labs, and imaging. HOSPITAL COURSE: 82 yo with hx of laryngeal SCC s/p XRT in 2005 who has dysphonia and dysphagia who has been experiencing worsening symptoms, recurrent aspirations (several bouts of aspiration pneumonia), and now increased difficulty breathing. Per his , he has been hospitalized for much of February through present. He was admitted to the ICU with COVID pneumonia, urosepsis secondary to pseudomonas UTI, and failure to thrive. Since the hospitalization he has had an indwelling jenkins. Prior to this, in January, he had a "Large back abscess" that was I&D'd and managed with wound packing. He was recentlyseen by Vascular Surgery for carotid artery stenosis and they stated they would normally offer intervention, but he should have his other more pressing medical issues addressed first. On 05/23 he was seen by ENT in [place] for f/u of his hx of laryngeal cancer and worsening symptoms. He was referred to [facility]. He was to f/u as an outpatient but developed strider so presented to the ER for evaluation. He was evaluated by ENT. Flexible nasopharyngolaryngoscopy showed bilateral vocalfold immobility and copious thick purulent secretions on the right vocal fold. Given concern for air way compromise he was admitted to the ICU and plan for further intervention. PMHx: HTN, DLD, CAD, carotid artery stenosis, s/p RCA DEBORAH stent (2009) and unsuccessful circumflex intervention, s/p CABG x2, paroxysmal A fib, [aroxysmal V tach, hx laryngeal cancer, hx TB, GERD, urinary retention, DM2, hypothyroidism, hearing loss, OA, osteoporosis ACUTE HOSPITAL ISSUES: - Stridor - Immobile vocal cords 24 HOUR EVENTS: OR postponed until today. PLAN: Neuro: - Analgesia: Tylenol PRN - Sedation: n/a HEENT/Resp: - Stridor, bilateral vocal cord immobility - ENT consulted - OR today for trach - Close airway monitoring - Humidified face tent - Low threshold to intubate with 5.5 or 6.0 ETT (FIBEROPTIC) - Decadron 8 mg q8hrs - Racemic Epi PRN - Reflux precautions and PPI - Heliox at bedside - Emergent trach kit at bedside - IS, pulmonary hygiene, respiratory driven protocol Cardiovascular: - HTN, HLD, CAD A fib - PROFESSIONAL DRIVER Aspirin 81 mg daily GI: - Diet: NPO - Once able, will need Speech evaluation prior to initiating any diet - Further plans to be established based on results of intra-op evaluation - Nausea: Zofran PRN - Bowel regimen: Senna and colace BID - GERD: PROFESSIONAL DRIVER Pantoprazole 40 mg daily Renal/Metabolic/Fluids: - Urinary retention - Jenkins in place since recent hospitalization - Void trial (jenkins not removed yesterday due to plans for OR; should remove today even though going to OR) - PROFESSIONAL DRIVER Flomax Endocrine: - DM2: - SSI - Hold PROFESSIONAL DRIVER metformin - Hypothyroidism: PROFESSIONAL DRIVER levothyroxine Infectious Disease: - Concern for infectious component/purulence on exam - Continue Unasyn Heme: - VTE ppx: SCDs, Lovenox Musculoskeletal/Integumentary: - PT/OT Lines/Drains/Tubes: - Maintain 2 large bore IVs - Jenkins (PROFESSIONAL DRIVER - present) Misc: - Continue meds IV Incidentals: - n/a Dispo: - Remain in ICU Was critical care rendered? Yes. I have personally provided 35 minutes of critical care time exclusive of time spent on separately billable procedures. Time includes review of laboratory data, radiology results, discussion with consultants, and monitoring for potential decompensation. Interventions were performed as documented above. Upon my evaluation, this patient had a high probability of imminent or life- threatening deterioration due to critical airway, which required my direct attention, intervention, and personal management. Judi Styles MD, FACS Trauma, Emergency General Surgery, and Critical Care Principal Problem: Stridor (POA: Yes) Active Problems: Difficult airway for intubation (POA: Yes) Laryngeal mass (POA: Yes) Severe protein-energy malnutrition (HCC) (POA: Yes) Benign essential hypertension (POA: Yes) Carotid stenosis (POA: Yes) Overview: Last Assessment & Plan: I had [...] should go to the emergency room immediately. 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 (POA: Yes) Dyslipidemia, goal LDL below 70 (POA: Yes) Gastroesophageal reflux disease (POA: Yes) Hypothyroidism (POA: Yes) Paroxysmal atrial fibrillation (HCC) (POA: Yes) Type 2 diabetes mellitus without complication (HCC) (POA: Yes) Vocal cord dysfunction (POA: Unknown) POA = Present On Admission * Warner Michael MD - 05/27/2023 6:03 AM EST Images from the original note were not included. PROGRESS NOTE - [facility] [address] [address] Name: Farhad Dash Jr. 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 Recently admitted for COVID and pseudomonas UTI at [facility]. He has had persistent dysphonia anddysphagia and has G tube for enteral nutrition. Denies odynophagia. No CP. Has mild dyspnea. 24H EVENTS OF NOTE: Admitted yesterday and discussed tracheostomy with ENT. Going to proceed today. Remained HDS overnight on face tent oxygen. Voiding via jenkins. 1.2L UOP PAST MEDICAL HISTORY: Past Medical History: Diagnosis Date Diabetes mellitus (HCC) GERD (gastroesophageal reflux disease) History of cancer of larynx Hyperlipidemia Hypertension Myocardial infarction (HCC) PAST SURGICAL HISTORY: Past Surgical History: Procedure Laterality Date CORONARY ARTERY BYPASS, SINGLE EGD, FLEXIBLE,W/ENDOSCOPIC US 07/30/2019 sludge, ascites / [facility] ERCP 10/22/2019 stent removed / [facility] ER[facility] 07/30/2019 benign biliary papillary stenosis, stent placed / [facility] REMOVE CATARACT, INSERT LENS PROSTH Right 06/27/2020 RIGHT EXTRACAPSULAR CATARACT REMOVAL WITH INTRAOCULAR LENS performed by Mason Hassan MD at [facility] REMOVE CATARACT, INSERT LENS PROSTH Left 07/11/2020 LEFT EXTRACAPSULAR CATARACT REMOVAL WITH INTRAOCULAR LENS performed by Mason Hassan MD at [facility] TOTAL HIP REPLACEMENT & PROSTHESIS Bilateral FAMILY HISTORY: Family History Problem Relation Age of Onset Hypertension Father SOCIAL HISTORY: Social History Tobacco Use Smoking status: Former Packs/day: 1.00 Years: 30.00 Additional pack years: 0.00 Total pack years: 30.00 Types: Cigarettes Quit date: 1969 Years since quittin.0 Smokeless tobacco: Former Types: Chew Quit date: 2004 Substance Use Topics Alcohol use: Not Currently Drug use: Never PRIOR TO ADMISSION MEDS: Current Outpatient Medications Medication Instructions Amoxicillin (AMOXIL) 2,000 mg, PRN Aspirin 81 mg, Oral, Daily(AM) Calcium Carbonate (CALCIUM-CARB 600) 600 mg, Oral, BID (AM/PM MEALS) Ferrous Sulfate (FEOSOL) 325 mg, Oral, BREAKFAST levothyroxine (LEVOXYL) 75 mcg, Oral, [id number], (at least 30 min prior to breakfast or other meds) MetFORMIN (GLUCOPHAGE) 1,000 mg, Oral, BID (AM/PM MEALS) pantoprazole (PROTONIX) 40 mg, Oral, Daily(AM) rosuvastatin (CRESTOR) 5 mg, Daily(AM) tamsulosin (FLOMAX) 0.4 mg, Oral, Daily(AM) ALLERGIES: Sulfa [sulfa antibiotics] CONSTITUTIONAL DATA / OBJECTIVE: Vital Signs (Most Recent): Pulse: 80 (05/27/23899) BP: 102/64 (05/27/23899) Resp: 31 (05/27/23899) Temp: 36.4 C (97.5 F) (05/27/23799) SpO2: 99 % (05/27/23899) Vital Signs (Last 24 Hours): Pulse Av.3 Min: 77 Max: 93 No data recorded Most Recent Systolic BP Av.7 mmHg Min: 82 mmHg Max: 124 mmHg Most Recent Diastolic BP Av.1 mmHg Min: 45 mmHg Max: 77 mmHg Resp Av.9 Min: 11 Max: 31 Most Recent Temperature Av.3 C Min: 35.89 C Max: 36.89 C SpO2 Av % Min: 90 % Max: 100 % Physical Examination: Constitutional: no acute distress, chronically ill appearing, Ill appearing. Head: normocephalic, atraumatic. Ears, nose, throat: moist mucous membranes, no nasal discharge, no swelling of neck, hoarse, with expiratory wheeze and stridor. Chest wall: no chest wall tenderness or deformity. Cardiovascular: normal rate, irregular rhythm. Pulmonary: symmetric chest rise, trachea midline, ,mild respiratory distress. Abdomen: soft, non-distended, G tube in place. Genitourinary: jenkins catheter present. Musculoskeletal: 5/5 strength in bilateral upper and bilateral lower extremities. Skin: warm, dry. Intake & Output Summary (Last 24 hours): Intake/Output Summary (Last 24 hours) at 05/27/2023 1002 Last data filed at 05/27/2023 0900 Gross per 24 hour Intake 1821.67 ml Output 1500 ml Net 321.67 ml Laboratory Values: CBC Lab results within last 7 days (see chart for full results) Units 05/27/23 0525 05/26/23 1359 WBC K/uL 5.75 9.96 HGB g/dL 9.4* 9.3* HCT % 30.6* 29.8* PLT K/uL 206 236 BMP Lab results within last 7 days (see chart for full results) Units 05/27/23 0525 05/26/23 1359 Sodium mmol/L 137 133* Potassium mmol/L 4.8 4.7 Chloride mmol/L 98 94* CO2 mmol/L 30 34* BUN mg/dL 19 22* Creatinine mg/dL 0.6 0.6 Glucose mg/dL 204* 201* Ca, Mg, Phos Lab results within last 7 days (see chart for full results) Units 05/27/23 0525 05/26/23 1359 Calcium mg/dL 9.0 9.2 Magnesium mg/dL 2.0 -- Phosphorus mg/dL 4.8 -- Lactic acid Lab results within last 7 days (see chart for full results) Units 05/26/23 1530 Lactate mmol/L 1.2 Arterial Blood Gas No results in the last 7 days - inpatent use only Radiographic Studies: CT PULMONARY EMBOLUS W CONTRAST Result Date: 05/26/2023 IMPRESSION 1. No pulmonary embolism is identified. 2. Small to moderate right pleural effusion withfluid extending into the right major fissure. 3. Ill- defined bilateral ground-glass opacities with a few patchy/nodular consolidative opacities in the right upper lobe, which may be infectious in etiology. Follow- up to resolution is recommended. 4. A few pulmonary nodules measure up to 6 millimeters. Fleischner Society recommendation for management of multiple incidental 6-[address] at 3-6 months in low and high risk patients. 5. The main pulmonary artery is dilated to 3.2 cm, which may be seen in the setting of pulmonary hypertension. 6. Borderline ectasia of the ascending aorta to 3.9 cm. 7. Enlarged right hilar lymph nodes, likely reactive. CT NECK W CONTRAST Result Date: 05/26/2023 IMPRESSION 1. Mucosal irregularity with soft tissue thickening and enhancement involving the right piriform sinus and right arytenoepiglottic fold. Findings are nonspecific, and correlation with laryngoscopy findings is recommended. Asymmetric medial position of the right arytenoid cartilage may besecondary to vocal cord dysfunction. 2. 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 3. No suspicious cervical lymphadenopathy is identified. 4. Advanced atherosclerosis with severe stenosis of the right internal carotid artery. XR CHEST 1 VIEW Result Date: 05/26/2023 IMPRESSION Indeterminate opacity at the lateral right mid lung and base. This could reflect small loculated right pleural effusion, pneumonia, and/or scarring, given there are chronic right rib fractures that are new since 2009. There is also mild lateral left basilar opacity which could be inflammatory. Added to the ASSISTANT STORE DIRECTOR result communication system at 2:45 p.m. 05/26/2023. Cultures: not applicable as of Recent Cultures (2 Weeks) 05/26/2023 05/26/2023 3:30 PM 3:26 PM BLOOD CULTURE GROWTH No growth to date No growth to date Assessment & Plan Principal Problem: Stridor (POA: Unknown) Active Problems: Difficult airway for intubation (POA: Unknown) Laryngeal mass (POA: Unknown) POA = Present On Admission SYSTEMS BASED PLAN: NEURO: No active issues Pain control - Tylenol 650mg q6H via G tube, oxy 5mg CARDIAC / VASCULAR: History of HTN History of HLD History of CAD / TX -Prior CABG 11/04/2017 CABG x2 with PEREYRA to LAD and vein graft to PDA. Patient also had clipping of the left atrial appendage -11/21/2009 PCI of proximal RCA with 3.5 x 23 Xience drug-eluting stent. 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 - [place] scope and fiberoptic scope available in the case of potential intubation - Patient should be intubatable from above w/ a 5.5 or 6.0 ETT based on scope exam vs surgical airway by ENT. - Trach kit at bedside - Humidified face tent - Heliox to the bedside - Head of bed elevated >30 degrees - ENT to follow with serial scope exams - If there is any respiratory distress or concerning signs, please contact ENT immediately for re-evaluation -Plan for Tracheostomy and DL/biopsy 05/27/23 - s/p 10mg Decadron in ED 05/26 - 8mg IV decadron q8H - nebulized racemic epinephrine q1H PRN - Aggressive Pulmonary toilet GI / HEPATOBILIARY: GERD Antireflux precautions G tube - Bowel regimen senna, colace via G tube - will do BID PPI IV - TF when post op RENAL / METABOLIC / FLUIDS: Urinary retention with recent UTI w/ pseudomonas Jenkins status -has jenkins from OSH -remove jenkins after OR -U/A -maintenance fluids - isolyte 100mL/hr while NPO -holding PROFESSIONAL DRIVER Flomax 0.4mg daily, will convert to doxazosin 2mg via G tube HEMATOLOGIC: Lovenox and SCDs for DVT ppx INFECTIOUS DISEASES: COVID 19 infection Apr 2023 UTI sepsis with Pseudomonas Apr 2023 ?Tuberculosis - zosyn started 05/26/2023 will switch to unasyn 05/27/23 - ancef precision grinder for OR - U/A negative - MRSA negative - quantiferon gold pending ENDOCRINE: History of T2DM -holding PROFESSIONAL DRIVER Metformin -start high dose ISS History of hypothyroidism -restarted PROFESSIONAL DRIVER levoxyl 75mcg daily via G tube MUSCULOSKELETAL / DERM: No active issues P.T./O.T. / MOBILITY / WOUND CARE: PT/OT consult after OR LINES / DRAINS / TUBES: LINES ALL Duration Gastrostomy/Enterostomy Gastrostomy-jejunostomy LUQ -- days Peripheral Line Anterior;Right Hand -- days Peripheral Line Left Antecubital 18 Gauge -- days Urethral Catheter -- days GLOBAL ISSUES: Code Status: Limited Code Analgesia: well controlled Sedation: 100% holiday per protocol Delirium/Confusion Assessment Method for ICU (CAM-ICU): negative HOB Elevation: greater than 30 degrees Nutrition: NPO DVT Prophylaxis: chemoprophylaxis with pneumatic compression devices Stress Ulcer Prophylaxis: Histamine 2 Receptor Re. Glycemic Control: well controlled Central Line Necessity Reviewed: N/A Jenkins: reviewed and needed Disposition: keep in ICU Patient's decisional capacity: has capacity to make decisions Communication with Patient/Family: Brief Family Communication. Patient/Family participation: Patient and Spouse/Partner. Goals of Care: wean respiratory parameters, stabilize hemodynamic status, and decrease pain and discomfort Patient was seen and discussed on rounds with MD Warner Velasquez MD PGY-2 General Surgery Resident [facility] Associated attestation - Judi Styles MD - 05/27/2023 10:41 PM EST ATTESTATION I saw and evaluated the patient. I have reviewed the trainee note. I have reviewed and independently interpreted the history, physical, chart, labs, and imaging. HOSPITAL COURSE: 82 yo with hx of laryngeal SCC s/p XRT in 2005 who has dysphonia and dysphagia who has been experiencing worsening symptoms, recurrent aspirations (several bouts of aspiration pneumonia), and now increased difficulty breathing. Per his , he has been hospitalized for much of February through present. He was admitted to the ICU with COVID pneumonia, urosepsis secondary to pseudomonas UTI, and failure to thrive. Since the hospitalization he has had an indwelling jenkins. Prior to this, in January, he had a "Large back abscess" that was I&D'd and managed with wound packing. He was recentlyseen by Vascular Surgery for carotid artery stenosis and they stated they would normally offer intervention, but he should have his other more pressing medical issues addressed first. On 05/23 he was seen by ENT in [place] for f/u of his hx of laryngeal cancer and worsening symptoms. He was referred to [facility]. He was to f/u as an outpatient but developed strider so presented to the ER for evaluation. He was evaluated by ENT. Flexible nasopharyngolaryngoscopy showed bilateral vocalfold immobility and copious thick purulent secretions on the right vocal fold. Given concern for air way compromise he was admitted to the ICU and plan for further intervention. PMHx: HTN, DLD, CAD, carotid artery stenosis, s/p RCA DEBORAH stent (2009) and unsuccessful circumflex intervention, s/p CABG x2, paroxysmal A fib, [aroxysmal V tach, hx laryngeal cancer, hx TB, GERD, urinary retention, DM2, hypothyroidism, hearing loss, OA, osteoporosis ACUTE HOSPITAL ISSUES: - Stridor - Immobile vocal cords 24 HOUR EVENTS: No significant changes in respiratory status. Plan for trach today. PLAN: Neuro: - Analgesia: Tylenol PRN - Sedation: n/a HEENT/Resp: - Stridor, bilateral vocal cord immobility - ENT consulted - Close airway monitoring - Humidified face tent - Low threshold to intubate with 5.5 or 6.0 ETT (FIBEROPTIC) - Decadron 8 mg q8hrs - Racemic Epi PRN - Reflux precautions and PPI - Heliox at bedside - Emergent trach kit at bedside - IS, pulmonary hygiene, respiratory driven protocol Cardiovascular: - HTN, HLD, CAD A fib - PROFESSIONAL DRIVER Aspirin 81 mg daily - Confirm no additional medications GI: - Diet: NPO - Nausea: Zofran PRN - Bowel regimen: Senna and colace BID - GERD: PROFESSIONAL DRIVER Pantoprazole 40 mg daily Renal/Metabolic/Fluids: - Urinary retention - Jenkins in place since recent hospitalization - Void trial - PROFESSIONAL DRIVER Flomax Endocrine: - DM2: - SSI - Hold PROFESSIONAL DRIVER metformin - Hypothyroidism: PROFESSIONAL DRIVER levothyroxine Infectious Disease: - Concern for infectious component/purulence on exam - Transition to Unasyn Heme: - VTE ppx: SCDs, Lovenox Musculoskeletal/Integumentary: - PT/OT Lines/Drains/Tubes: - Maintain 2 large bore IVs - Jenkins (PROFESSIONAL DRIVER - present) Misc: - Transition meds to IV Incidentals: - n/a Dispo: - Remain in ICU Was critical care rendered? Yes. I have personally provided 35 minutes of critical care time exclusive of time spent on separately billable procedures. Time includes review of laboratory data, radiology results, discussion with consultants, and monitoring for potential decompensation. Interventions were performed as documented above. Upon my evaluation, this patient had a high probability of imminent or life- threatening deterioration due to critical airway, which required my direct attention, intervention, and personal management. Judi Styles MD, FACS Trauma, Emergency General Surgery, and Critical Care Principal Problem: Stridor (POA: Yes) Active Problems: Difficult airway for intubation (POA: Yes) Laryngeal mass (POA: Yes) Severe protein-energy malnutrition (HCC) (POA: Yes) Benign essential hypertension (POA: Yes) Carotid stenosis (POA: Yes) Overview: Last Assessment & Plan: I had [...] should go to the emergency room immediately. 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 (POA: Yes) Dyslipidemia, goal LDL below 70 (POA: Yes) Gastroesophageal reflux disease (POA: Yes) Hypothyroidism (POA: Yes) Paroxysmal atrial fibrillation (HCC) (POA: Yes) Type 2 diabetes mellitus without complication (HCC) (POA: Yes) POA = Present On Admission documented in this encounter H&P Notes * Warner Michael MD - 05/26/2023 4:11 PM EST Images from the original note were not included. HISTORY & PHYSICAL EXAMINATION - [facility] [address] [address] Name: Farhad Dash Jr. 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 Recently admitted for COVID and pseudomonas UTI at [facility]. He has had persistent dysphonia and dysphagia and has G tube for enteral nutrition. Denies odynophagia. No CP. Has mild dyspnea. PAST MEDICAL HISTORY: Past Medical History: Diagnosis Date Diabetes mellitus (HCC) GERD (gastroesophageal reflux disease) History of cancer of larynx Hyperlipidemia Hypertension Myocardial infarction (HCC) PAST SURGICAL HISTORY: Past Surgical History: Procedure Laterality Date CORONARY ARTERY BYPASS, SINGLE EGD, FLEXIBLE,W/ENDOSCOPIC US 07/30/2019 sludge, ascites / [facility] ERCP 10/22/2019 stent removed / [facility] ERCP 07/30/2019 benign biliary papillary stenosis, stent placed / [facility] REMOVE CATARACT, INSERT LENS PROSTH Right 06/27/2020 RIGHT EXTRACAPSULAR CATARACT REMOVAL WITH INTRAOCULAR LENS performed by Mason Hassan MD at [facility] REMOVE CATARACT, INSERT LENS PROSTH Left 07/11/2020 LEFT EXTRACAPSULAR CATARACT REMOVAL WITH INTRAOCULAR LENS performed by Mason Hassan MD at [facility] TOTAL HIP REPLACEMENT & PROSTHESIS Bilateral FAMILY HISTORY: Family History Problem Relation Age of Onset Hypertension Father SOCIAL HISTORY: Social History Tobacco Use Smoking status: Former Packs/day: 1.00 Years: 30.00 Additional pack years: 0.00 Total pack years: 30.00 Types: Cigarettes Quit date: 1970 Years since quittin.0 Smokeless tobacco: Former Types: Chew Quit date: 2004 Substance Use Topics Alcohol use: Not Currently Drug use: Never PRIOR TO ADMISSION MEDS: Current Outpatient Medications Medication Instructions Amoxicillin (AMOXIL) 2,000 mg, PRN Aspirin 81 mg, Oral, Daily(AM) Calcium Carbonate (CALCIUM-CARB 600) 600 mg, Oral, BID (AM/PM MEALS) Ferrous Sulfate (FEOSOL) 325 mg, Oral, BREAKFAST levothyroxine (LEVOXYL) 75 mcg, Oral, [id number], (at least 30 min prior to breakfast or other meds) MetFORMIN (GLUCOPHAGE) 1,000 mg, Oral, BID (AM/PM MEALS) pantoprazole (PROTONIX) 40 mg, Oral, Daily(AM) rosuvastatin (CRESTOR) 5 mg, Daily(AM) tamsulosin (FLOMAX) 0.4 mg, Oral, Daily(AM) ALLERGIES: Sulfa [sulfa antibiotics] ROS: Constitutional: no weakness, + weakness, and + fatigue Resp: no cough, no sputum, + wheezing, + dyspnea with exertion, and + stridor Cardiac: no chest pain, no orthopnea, and no edema GI: no pain, no heartburn, no diarrhea, no constipation Musculoskeletal: no significant joint or muscle pain and no swelling Neuro: no memory loss CONSTITUTIONAL DATA / OBJECTIVE: Vital Signs (Most Recent): Pulse: 88 (05/26/23 1500) BP: (S) 82/45 (Dr. Smith made aware. fluid bolus started) (05/26/23 1500) Resp: 16 (05/26/23 1500) Temp: 36.2 C (97.2 F) (05/26/23 1403) SpO2: 97 % (05/26/23 1500) Vital Signs (Last 24 Hours): Pulse Av Min: 86 Max: 88 No data recorded Most Recent Systolic BP Av.5 mmHg Min: 82 mmHg Max: 101 mmHg Most Recent Diastolic BP Av.5 mmHg Min: 45 mmHg Max: 52 mmHg Resp Av Min: 16 Max: 22 Most Recent Temperature Av.22 C Min: 36.22 C Max: 36.22 C SpO2 Av.7 % Min: 90 % Max: 97 % Physical Examination: Constitutional: no acute distress, chronically ill appearing, Ill appearing. Head: normocephalic, atraumatic. Ears, nose, throat: moist mucous membranes, no nasal discharge, no swelling of neck, hoarse, with expiratory wheeze and stridor. Chest wall: no chest wall tenderness or deformity. Cardiovascular: normal rate, irregular rhythm. Pulmonary: symmetric chest rise, trachea midline, ,mild respiratory distress. Abdomen: soft, non-distended, G tube in place. Genitourinary: jenkins catheter present. Musculoskeletal: 5/5 strength in bilateral upper and bilateral lower extremities. Skin: warm, dry. Intake & Output Summary (Last 24 hours): No intake or output data in the 24 hours ending 05/26/23 1650 Laboratory Values: CBC Lab results within last 7 days (see chart for full results) Units 05/26/23 1359 WBC K/uL 9.96 HGB g/dL 9.3* HCT % 29.8* PLT K/uL 236 BMP Lab results within last 7 days (see chart for full results) Units 05/26/23 1359 Sodium mmol/L 133* Potassium mmol/L 4.7 Chloride mmol/L 94* CO2 mmol/L 34* BUN mg/dL 22* Creatinine mg/dL 0.6 Glucose mg/dL 201* Ca, Mg, Phos Lab results within last 7 days (see chart for full results) Units 05/26/23 1359 Calcium mg/dL 9.2 Lactic acid Lab results within last 7 days (see chart for full results) Units 05/26/23 1530 Lactate mmol/L 1.2 Arterial Blood Gas No results in the last 7 days - inpatent use only Radiographic Studies: XR CHEST 1 VIEW Result Date: 05/26/2023 IMPRESSION Indeterminate opacity at the lateral right mid lung and base. This could reflect small loculated right pleural effusion, pneumonia, and/or scarring, given there are chronic right rib fractures that are new since 2009. There is also mild lateral left basilar opacity which could be inflammatory. Added to the ASSISTANT STORE DIRECTOR result communication system at 2:45 p.m. 05/26/2023. Cultures: not applicable as of Recent Cultures (2 Weeks) No lab values to display. Assessment & Plan Active Problems: Difficult airway for intubation (POA: Unknown) Laryngeal mass (POA: Unknown) Stridor (POA: Unknown) POA = Present On Admission SYSTEMS BASED PLAN: NEURO: No active issues Pain control - Tylenol 650mg q6H via G tube, oxy 5mg Sedation: - none CARDIAC / VASCULAR: History of HTN History of HLD History of CAD / TX -Prior CABG 11/04/2017 CABG x2 with PEREYRA to LAD and vein graft to PDA. Patient also had clipping of the left atrial appendage -11/21/2009 PCI of proximal RCA with 3.5 x 23 Xience drug-eluting stent. 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 - [place] scope and fiberoptic scope available in the case of potential intubation - Patient should be intubatable from above w/ a 5.5 or 6.0 ETT based on scope exam vs surgical airway by ENT. - Trach kit at bedside - Humidified face tent - Heliox to the bedside - Head of bed elevated >30 degrees - ENT to follow with serial scope exams - If there is any respiratory distress or concerning signs, please contact ENT immediately for re-evaluation -Plan for Tracheostomy and DL/biopsy 05/27/23 - s/p 10mg Decadron in ED 05/26 - 8mg IV decadron q8H - nebulized racemic epinephrine q1H PRN - Aggressive Pulmonary toilet GI / HEPATOBILIARY: GERD Antireflux precautions G tube - Bowel regimen senna, colace via G tube - famotidine BID via G tube RENAL / METABOLIC / FLUIDS: Urinary retention with recent UTI w/ pseudomonas Jenkins status -has jenkins from OSH -replace per [facility] protocol -U/A -maintenance fluids - isolyte 100mL/hr while NPO -holding PROFESSIONAL DRIVER Flomax 0.4mg daily HEMATOLOGIC: Lovenox and SCDs for DVT ppx INFECTIOUS DISEASES: COVID 19 infection Apr 2023 UTI sepsis with Pseudomonas Apr 2023 ?Tuberculosis - zosyn started 05/26/2023 - U/A pending - quantiferon gold pending ENDOCRINE: History of T2DM -holding PROFESSIONAL DRIVER Metformin -start medium dose ISS History of hypothyroidism -restarted PROFESSIONAL DRIVER levoxyl 75mcg daily via G tube MUSCULOSKELETAL / DERM: No active issues P.T./O.T. / MOBILITY / WOUND CARE: PT/OT consult after OR LINES / DRAINS / TUBES: LINES ALL Duration Peripheral Line Left Antecubital 18 Gauge -- days Urethral Catheter -- days GLOBAL ISSUES: Code Status: Limited Code Analgesia: well controlled Sedation: 100% holiday per protocol Delirium/Confusion Assessment Method for ICU (CAM-ICU): negative HOB Elevation: greater than 30 degrees Nutrition: NPO DVT Prophylaxis: chemoprophylaxis with pneumatic compression devices Stress Ulcer Prophylaxis: Histamine 2 Receptor Re. Glycemic Control: well controlled Central Line Necessity Reviewed: N/A Jenkins: reviewed and needed Disposition: keep in ICU Patient's decisional capacity: has capacity to make decisions Communication with Patient/Family: Brief Family Communication. Patient/Family participation: Patient and Spouse/Partner. Goals of Care: wean respiratory parameters, stabilize hemodynamic status, and decrease pain and discomfort Patient was seen and discussed on rounds with MD Warner Velasquez MD PGY-2 General Surgery Resident [facility] Associated attestation - Judi Styles MD - 05/27/2023 10:39 PM EST ATTESTATION I saw and evaluated the patient on 05/26/23. I have reviewed the trainee note. I have reviewed and independently interpreted the history, physical, chart, labs, and imaging. HOSPITAL COURSE: 82 yo with hx of laryngeal SCC s/p XRT in 2005 who has dysphonia and dysphagia who has been experiencing worsening symptoms, recurrent aspirations (several bouts of aspiration pneumonia), and now increased difficulty breathing. Per his , he has been hospitalized for much of February through present. He was admitted to the ICU with COVID pneumonia, urosepsis secondary to pseudomonas UTI, and failure to thrive. Since the hospitalization he has had an indwelling jenkins. Prior to this, in January, he had a "Large back abscess" that was I&D'd and managed with wound packing. He was recentlyseen by Vascular Surgery for carotid artery stenosis and they stated they would normally offer intervention, but he should have his other more pressing medical issues addressed first. On 05/23 he was seen by ENT in [place] for f/u of his hx of laryngeal cancer and worsening symptoms. He was referred to [facility]. He was to f/u as an outpatient but developed strider so presented to the ER for evaluation. He was evaluated by ENT. Flexible nasopharyngolaryngoscopy showed bilateral vocalfold immobility and copious thick purulent secretions on the right vocal fold. Given concern for air way compromise he was admitted to the ICU and plan for further intervention. PMHx: HTN, DLD, CAD, carotid artery stenosis, s/p RCA DEBORAH stent (2009) and unsuccessful circumflex intervention, s/p CABG x2, paroxysmal A fib, [aroxysmal V tach, hx laryngeal cancer, hx TB, GERD, urinary retention, DM2, hypothyroidism, hearing loss, OA, osteoporosis ACUTE HOSPITAL ISSUES: - Stridor - Immobile vocal cords 24 HOUR EVENTS: See Hospital Course. Pt is at high risk of further airway compromise. Plan is for CT, and may require trach (timing TBD) PLAN: Neuro: - Analgesia: Tylenol PRN - Sedation: n/a HEENT/Resp: - Stridor, bilateral vocal cord immobility - ENT consulted - CT neck and chest pending - Close airway monitoring - Humidified face tent - Low threshold to intubate with 5.5 or 6.0 ETT (FIBEROPTIC) - Decadron 8 mg q8hrs - Racemic Epi PRN - Reflux precautions and PPI - Heliox at bedside - Emergent trach kit at bedside - IS, pulmonary hygiene, respiratory driven protocol Cardiovascular: - HTN, HLD, CAD A fib - PROFESSIONAL DRIVER Aspirin 81 mg daily - Confirm no additional medications GI: - Diet: NPO - Nausea: Zofran PRN - Bowel regimen: Senna and colace BID - GERD: PROFESSIONAL DRIVER Pantoprazole 40 mg daily Renal/Metabolic/Fluids: - Urinary retention - Jenkins in place since recent hospitalization - Maintain jenkins for today - PROFESSIONAL DRIVER Flomax Endocrine: - DM2: - SSI - Hold PROFESSIONAL DRIVER metformin - Hypothyroidism: PROFESSIONAL DRIVER levothyroxine Infectious Disease: - Continue Zosyn for now (reassess after CT) Heme: - VTE ppx: SCDs, Lovenox Musculoskeletal/Integumentary: - PT/OT Lines/Drains/Tubes: - Maintain 2 large bore IVs - Jenkins (PROFESSIONAL DRIVER - present) Misc: - Transition meds to IV Incidentals: - n/a Dispo: - Admit to ICU Was critical care rendered? Yes. I have personally provided 50 minutes of critical care time exclusive of time spent on separately billable procedures. Time includes review of laboratory data, radiology results, discussion with consultants, and monitoring for potential decompensation. Interventions were performed as documented above. Upon my evaluation, this patient had a high probability of imminent or life- threatening deterioration due to critical airway, which required my direct attention, intervention, and personal management. Judi Styles MD, FACS Trauma, Emergency General Surgery, and Critical Care Principal Problem: Stridor (POA: Yes) Active Problems: Difficult airway for intubation (POA: Yes) Laryngeal mass (POA: Yes) Severe protein-energy malnutrition (HCC) (POA: Yes) Benign essential hypertension (POA: Yes) Carotid stenosis (POA: Yes) Overview: Last Assessment & Plan: I had [...] should go to the emergency room immediately. 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 (POA: Yes) Dyslipidemia, goal LDL below 70 (POA: Yes) Gastroesophageal reflux disease (POA: Yes) Hypothyroidism (POA: Yes) Paroxysmal atrial fibrillation (HCC) (POA: Yes) Type 2 diabetes mellitus without complication (HCC) (POA: Yes) POA = Present On Admission documented in this encounter Procedure Notes * Nelli Juárez, [facility]-HAND CARVER - 06/05/2023 1:30 PM EST I, Nelli Juárez, was present in the room and actively engaged in the service(s) mentioned below. Criselda Mejía was also present and participated in the care of the patient. I have read the note below and agree with the results and recommendations made by Criselda Mejía. Nelli Juárez M.S., CCC-HAND CARVER Speech-Language Pathologist Acute Care Rehab- [facility] VIDEOFLUOROSCOPY SWALLOW EVALUATION - Speech-Language Pathology [address] [address] Name: Farhad Dash Jr. Location: [facility] [id number] Date: 06/05/2023 Time: 3:57 PM Patient Status: Inpatient Insurance: Payor: MEDICARE / Plan: MEDICARE A AND B / Product Type: *No Product type* / Patient Age: [age] year old Referring Physician: Mikayla Johnson MD Pertinent Medical History: Per EPIC Review 05/26/23 "82 yo with hx of laryngeal SCC s/p XRT in 2005 who has dysphonia and dysphagia who has been experiencing worsening symptoms, recurrent aspirations (several bouts of aspiration pneumonia), and now increased difficulty breathing. Per his , he hasbeen hospitalized for much of February through present. He was admitted to the ICU with COVID pneumonia, urosepsis secondary to pseudomonas UTI, and failure to thrive. Since the hospitalization he hashad an indwelling jenkins. Prior to this, in January, he had a "Large back abscess" that was I&D'd and managed with wound packing. He was recently seen by Vascular Surgery for carotid artery steno sis and they stated they would normally offer intervention, but he should have his other more pressing medical issues addressed first. On 05/23 he was seen by ENT in [place] for f/u of his hx of laryngeal cancer and worsening symptoms. He was referred to [facility]. He was to f/u as an outpatient but developed strider so presented to the ER for evaluation. He was evaluated by ENT. Flexible nasopharyngolaryngoscopy showed bilateral vocalfold immobility and copious thick purulent secretions on the right vocal fold. Given concern for airway compromise he was admitted to the ICU and plan for further intervention." Past Medical History: Diagnosis Date Diabetes mellitus (HCC) GERD (gastroesophageal reflux disease) History of cancer of larynx Hyperlipidemia Hypertension Myocardial infarction (HCC) Past Surgical History: Procedure Laterality Date CORONARY ARTERY BYPASS, SINGLE EGD, FLEXIBLE,W/ENDOSCOPIC US 07/30/2019 sludge, ascites / [facility] ERCP 10/22/2019 stent removed / [facility] 07/30/2019 benign biliary papillary stenosis, stent placed / [facility] INCISION OF [place], PLANNED N/A 05/28/2023 TRACHEOSTOMY PLANNED performed by Abimael De La Rosa DO at [facility] LARYNGOSCOPY/DILATION N/A 05/28/2023 LARYNGOSCOPY DIRECT DILATION INITIAL performed by Abimael De La Rosa DO at [facility] REMOVE CATARACT, INSERT LENS PROSTH Right 06/27/2020 RIGHT EXTRACAPSULAR CATARACT REMOVAL WITH INTRAOCULAR LENS performed by Mason Hassan MD at [facility] REMOVE CATARACT, INSERT LENS PROSTH Left 07/11/2020 LEFT EXTRACAPSULAR CATARACT REMOVAL WITH INTRAOCULAR LENS performed by Mason Hassan MD at OR [facility] TOTAL HIP REPLACEMENT & PROSTHESIS Bilateral IMAGING CT CHEST/ABDOMEN/PELVIS 06/03/23 "IMPRESSION 1. Mild pulmonary edema and small bilateral pleural effusions. 2. Pulmonary edema limits evaluation for suspicious pulmonary nodules. No additional evidence of metastatic disease in the chest. Short-term follow-up CT chest recommended. 3. No evidence of metastatic disease in the abdomen/pelvis." Current Diet/Dysphagia History: NPO -Pt w/ h/o dysphagia given h/o prior laryngeal CA and radiation tx. MBSS completed 08/2022 at outside facility w/the following impressions: "1. Moderate pharyngeal dysphagia suspected to be due to late effects of radiation treatment for laryngeal cancer. 2. Oral phase of the swallow was judged to be functional/WNL. 3. Pharyngeal phase of the swallow is remarkable for significantly reduced laryngeal elevation, stripping wave, and tongue base retraction. PES function is impaired with reduced duration of distension and atypical anatomy/prominence appearing to impact bolus flow and clearance. These impairments result in laryngeal closure which appears to be delayed and reduced, fairly consistent shallow penetration during the swallow, and incomplete pharyngeal clearance. Due to incomplete pharyngeal clearance, there was one instance of gross aspiration. Aspiration of liquids was eliminated with bolus size modification (i.e. 10cc sips). There was intermittent trace aspiration of laryngeal vestibule residue. A cued cough appeared to be beneficial for reducing laryngeal vestibule residue in order to prevent later aspiration. The Pt spontaneously uses multiple swallows to clear residue. Sensory response was not present for trace aspiration, however was present when gross aspiration occurred. 4. I suspect that the episode of coughing up chicken could have been from PES residue. There is an atypical function/? anatomy in the PES with consistent residue in the upper PES. Liquid wash beneficial. 5. It appears appropriate to continue current diet with compensatory strategies and aspiration precautions recommended. 6. Given his Hx and the suspected etiology of impairments, I do not believe rehab of the swallow is possible. I do believe that there should be short-term outpatient follow-up in order to develop and train him on a home maintenance program in order to prevent further decline/trial for some rehab and to reduce risk for aspiration and associated compromise. " -Pt reports consuming a regular diet at baseline since then. He did endorse frequent PNA (more thanx1 per year) Cognitive-Communication: Pt followed commands. He remained awake and alert. Pain: No complaints of pain ORAL EXAM Facial Symmetry: Grossly functional Lingual Function: Not formally assessed this date Labial Function: Not formally assessed this date Velar Function: DNT Dentition: Upper and Lower PROTECTIVE MECHANISMS Volitional Swallow: Within Functional Limits (WFL) Volitional Throat Clearing: Did Not Test (DNT) Volitional Cough: Within Functional Limits (WFL) Vocal Quality: Pt largely aphonic d/t trach placement TRACH/VENTILATOR STATUS: applicable; type - [place]iley Flex [id number] PMV not present RESULTS: Mild oral phase dysphagia characterized by bolus holding across PO trials, w/benefit from direct verbal cueing for oral clearance. Severe pharyngeal phase dysphagia characterized by decreased hyolaryngeal excursion, BOT retraction, and epiglottic inversion, resulting in min-mod residual w/in valleculae. Decreased closure of laryngeal vestibule. Decreased pharyngeal constriction and notably abnormal bolus flow through the UES. Suspect may be r/t dx. Significant residual w/in pyriforms w/subsequent penetration and aspiration of same. Pt sensate to aspirated material. Large amounts of barium coughed from trach. Retention/abnormal flow at the level of the UES IMPRESSIONS: Oral Phase: Mild oral phase dysphagia: -oral holding Pharyngeal Phase: Severe pharyngeal phase dysphagia: -impaired hyolaryngeal elevation/excursion, closure of laryngeal vestibule, and BOT retraction -notable pharyngeal residual -abnormal bolus passage at the level of the UES d/t ?abnormal anatomy -gross aspiration of residual from pyriforms w/ (+) sensory response Esophageal Phase: Irregular bolus passage at UES RECOMMENDATIONS: Recommend maintain NPO Non-oral medications Frequent oral care for comfort and hygiene Following thorough oral care, allow for single ice chips/limited tsps of thin water for comfort, leandro provided only as pt is fully awake and alert APPLICABLE ONLY IF PO DIET IS RECOMMENDED Presentation of Medication: Non-oral PLAN: Swallowing Treatment: Indicated REHAB POTENTIAL: Guarded APPLICABLE ONLY IF TREATMENT IS INDICATED Patient will consume least restrictive diet without sign/symptoms of aspiration Additional Recommendations: Plan for continued trials w/PMV to improve swallow pressures The above information was discussed with the patient/family: Yes The patient/family was in Agreement [facility] Coordinator Clinician documented in this encounter Consult Notes * Alec Franklin MD - 06/05/2023 12:08 PM ESTAssociated Order(s): RADIATION ONCOLOGY CONSULT IP Images from the original note were not included. 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 He underwent tracheotomy, DL with biopsy, and esophagoscopy 05/28/23 which revealed an obvious lesion in the right hypopharynx, right arytenoid extending about 7 cm into the esophagus. Path c/w well to moderately-differentiated invasive SCC keratinizing. CT C/A/P negative for metastatic disease. 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 Case was discussed in ENT tumor board, consensus recommendation for radiation therapy given patient isn't surgical candidate due to comorbidities. Rad/onc consulted for evaluation and treatment recommendations. ROS limited due to tracheotomy. PAST MEDICAL HISTORY: Past Medical History: Diagnosis Date Diabetes mellitus (HCC) GERD (gastroesophageal reflux disease) History of cancer of larynx Hyperlipidemia Hypertension Myocardial infarction (HCC) PAST SURGICAL HISTORY: Past Surgical History: Procedure Laterality Date CORONARY ARTERY BYPASS, SINGLE EGD, FLEXIBLE,W/ENDOSCOPIC US 07/30/2019 sludge, ascites / [facility] ERCP 10/22/2019 stent removed / [facility] ERCP 07/30/2019 benign biliary papillary stenosis, stent placed / [facility] INCISION OF [place], PLANNED N/A 05/28/2023 TRACHEOSTOMY PLANNED performed by Abimael De La Rosa DO at [facility] LARYNGOSCOPY/DILATION N/A 05/28/2023 LARYNGOSCOPY DIRECT DILATION INITIAL performed by Abimael De La Rosa DO at [facility] REMOVE CATARACT, INSERT LENS PROSTH Right 06/27/2020 RIGHT EXTRACAPSULAR CATARACT REMOVAL WITH INTRAOCULAR LENS performed by Mason Hassan MD at [facility] REMOVE CATARACT, INSERT LENS PROSTH Left 07/11/2020 LEFT EXTRACAPSULAR CATARACT REMOVAL WITH INTRAOCULAR LENS performed by Mason Hassan MD at [facility] TOTAL HIP REPLACEMENT & PROSTHESIS Bilateral FAMILY HISTORY: Family History Problem Relation Age of Onset Hypertension Father SOCIAL HISTORY: Social History Tobacco Use Smoking status: Former Packs/day: 1.00 Years: 30.00 Additional pack years: 0.00 Total pack years: 30.00 Types: Cigarettes Quit date: 1969 Years since quittin.0 Smokeless tobacco: Former Types: Chew Quit date: 2004 Substance Use Topics Alcohol use: Not Currently Drug use: Never ALLERGIES: Sulfa [sulfa antibiotics] ROS: Constitutional: (+) weakness Eyes: (-) negative, no amaurosis fugax, pain, blurred vision, or redness ENT: (+) difficulty swallowing Hematology/oncology: (-) negative: no fever, night sweats, masses, or swollen nodes Psychiatry: (-) negative: no depression or anxiety Unable to respond: +tracheotomy MEDICATIONS: Medications were reviewed. Current Facility-Administered Medications Medication Dose Route Frequency Provider Last Rate Last Admin [COMPLETED] barium sulfate 40% (Varibar Thin) oral susp 1 Dose 1 Dose Oral Once Mikayla Johnson MD 1 Dose at 06/05/23 1430 feed tube water flush 200 mL 200 mL G Tube TID(AM/NOON/HS) Mikayla Johnson MD insulin aspart (NovoLOG) inj Subcutaneous Q6H Mikayla Johnson MD melatonin tab 1 mg 1 mg Oral HS Mikayla Johnson MD Nutren 1.5 liquid 50 mL/hr Tube feed Continuous Mikayla Johnson MD potassium and sodium phosphate (Phos-Nak) oral powder 2 Packet 2 Packet G Tube Once Mikayla Johnson MD aspirin chew tab 81 mg 81 mg G Tube Daily(AM) Mcdonald Vipul, DO 81 mg at 06/05/23 0811 dextrose 50 % inj 25 mL 25 mL IV Push PRN Warner Michael MD dextrose 50 % inj 50 mL 50 mL IV Push PRN Warner Michael MD glucagon (Glucagen) inj 1 mg 1 mg Intramuscular PRN Warner Michael MD Glucose (Glutose 15) 40 % gel 15 g of glucose 15 g of glucose Oral PRN Warner Michael MD Glucose (Glutose 15) 40 % gel 30 g of glucose 30 g of glucose Oral PRN Warner Michael MD glucose chew tab 16 g 16 g Oral PRN Warner Michael MD levothyroxine (Levoxyl) tab 75 mcg 75 mcg G Tube Daily 1000 Warner Michael MD 75 mcg at 06/05/23 1029 Polyethylene Glycol 3350 (Miralax) oral powder 17 g 1 Packet G Tube Daily(AM) Warner Michael MD 17 g at 06/05/23 0812 Acetaminophen (Tylenol) 160 MG/5ML oral liquid 975 mg 975 mg G Tube Q6H PRN Isreal Anderson, DO 975 mg at 06/04/23 0845 Enoxaparin (Lovenox) inj 40 mg 40 mg Subcutaneous Daily(AM) Isreal Anderson, DO 40 mg at 06/05/23 0812 omeprazole (PriLOSEC) oral susp 20 mg 20 mg G Tube Daily(AM) Isreal Anderson DO 20 mg at 06/05/23 0816 doxazosin (Cardura) tab 2 mg 2 mg G Tube Daily(AM) Warner Michael MD 2 mg at 06/05/23 0813 chlorHEXIDINE (Periogard) 0.12 % oral rinse 15 mL 15 mL Oral mucosal membrane BID (799,1999) Warner Michael MD 15 mL at 06/05/23 0812 Docusate Sodium (Colace) oral liquid 100 mg 100 mg G Tube BID(AM/PM) Warner Michael MD 100 mg at 06/05/23 0812 Oral Hygiene: Mouth Swab with dentifrice Oral Q4H Limited (00;04;12;16) Warner Michael MD 1 Kit at 06/05/23 0413 oxygen GAS Inhalation Oxygen Warner Michael MD Oxygen On at 06/05/23 0800 racepinephrine 2.25 % inhalation solution 5.625 mg 0.25 mL Nebulizer Q1H PRN Cholo Causey DO rosuvastatin (Crestor) tab 5 mg 5 mg G Tube Daily(AM) Warner Michael MD 5 mg at 06/05/23 0813 senna (Senokot) 1 Tablet 1 Tablet G Tube Daily(AM) Warner Michael MD 1 Tablet at 06/05/23 0812 sodium chloride 0.9 % flush peripheral norman 3 mL 3 mL IV Push Q8H Warner Michael MD 3 mL at 06/05/23 0600 ZUBROD PERFORMANCE SCALE: 3 - capable of only limited self-care, confined to bed or chair more than 50% of waking hours PHYSICAL EXAMINATION: Most Recent Vital Signs: BP: 120 mmHg/56 mmHg (06/05/23 1000) Pulse: 85 (06/05/23 1030) Temp: 37 C (06/05/23 0800) Resp: 18 (06/05/23 1030) SpO2: 97 % (06/05/23 1030) Weight: 69.8 kg (153 lb 14.1 oz) (06/05/23 08) Weight: weight recently stable General: alert and oriented, no apparent distress, and cognition normal Skin: no skin lesions Eyes: sclera non-icteric bilaterally Head and face: facial strength symmetric Ears, nose, and throat: +tracheotomy Lymphatics: no cervical adenopathy and no supraclavicular adenopathy Lower extremities: non-edematous bilaterally and palpable peripheral pulses bilaterally Upper extremities: non-edematous bilaterally and normal range of motion LABS: Labs reviewed as indicated below: CBC Results: Results for orders placed or performed during the hospital encounter of 05/26/23 CBC Result Value Ref Range WBC 8.39 4.00 - 10.80 K/uL RBC 2.51 4.50 - 5.25 M/uL HGB 8.1 (L) 14.0 - 16.8 g/dL HCT 26.3 (L) 40.0 - 48.4 % MCV 104.8 82.0 - 99.5 fL MCH 32.3 27.0 - 34.0 pg MCHC 30.8 32.0 - 36.0 g/dL RDW 17.2 11.5 - 15.5 % PLT 200 140 - 400 K/uL MPV 9.5 6.6 - 11.1 fL nRBCs 0 <=0 /100 WBCs IMAGING: I personally reviewed the following images and diagnostic studies. (Impression copies from medical chart) 05/26/23 CT neck IMPRESSION 1. Mucosal irregularity with soft tissue thickening and enhancement involving the right piriform sinus and right arytenoepiglottic fold. Findings are nonspecific, and correlation with laryngoscopy findings is recommended. Asymmetric medial position of the right arytenoid cartilage may be secondary to vocal cord dysfunction. 2. 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 3. No suspicious cervical lymphadenopathy is identified. 4. Advanced atherosclerosis with severe stenosis of the right internal carotid artery. 05/26/23 CT PE IMPRESSION 1. No pulmonary embolism is identified. 2. Small to moderate right pleural effusion with fluid extending into the right major fissure. 3. Ill-defined bilateral ground-glass opacities with a few patchy/nodular consolidative opacities in the right upper lobe, which may be infectious in etiology. Follow-up to resolution is recommended. 4. A few pulmonary nodules measure up to 6 millimeters. Fleischner Society recommendation for management of multiple incidental 6-[address] nodules is CT at 3-6 months in low and high risk patients. 5. The main pulmonary artery is dilated to 3.2 cm, which may be seen in the setting of pulmonary hypertension. 6. Borderline ectasia of the ascending aorta to 3.9 cm. 7. Enlarged right hilar lymph nodes, likely reactive. 06/03/23 CT C/A/P IMPRESSION 1. Mild pulmonary edema and small bilateral pleural effusions. 2. Pulmonary edema limits evaluation for suspicious pulmonary nodules. No additional evidence of metastatic disease in the chest. Short-term follow-up CT chest recommended. 3. No evidence of metastatic disease in the abdomen/pelvis. HISTOPATHOLOGY: 05/28/23 Surg Path A. Right hypopharynx, biopsy: Fragments of invasive squamous cell carcinoma, well to moderately- differentiated, keratinizing B. 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 CT C/A/P negative for metastatic disease. Case was discussed in ENT tumor board,consensus recommendation for radiation therapy given patient isn't surgical candidate due to comorbidities. PLAN: Patient was seen and examined with Dr. Franklin. Plan is for quad-shot radiation. The role of radiation therapy in this situation was discussed with the patient. The logistics, potential benefits, and potential side effects of radiation therapy were reviewed. Possible short-term and long-term side effects of radiation therapy were discussed, including fatigue or lack of energy, localized skin reaction, and radiation-induced malignancies. Tentative CT simulation this afternoon, possible radiation start next week. Thank you for having asked us to take part in this patient's care. I spent 40 minutes counseling the patient face to face. The total time spent in care of this patient was 65 minutes. Late entry: The patient was seen with Deloris TIRADO. I agree with her assessment and conclusions. The patient has a history of previous irradiation to the larynx in 2004 in [place]. 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 He has not a candidate for surgery, nor is he a candidate for concurrent chemotherapy and radiation., his performance status is poor and I do not feel that he has a candidate for radiation with curative intent. However, radiation is likely to offer significant palliation. I have discussed the case with Dr. Carlson who was present at the multidisciplinary discussion of the patient. He agrees that quad shot radiation would be appropriate. The rationale, potential benefits, and side effects of radiation were discussed with the patient. Alternatives to radiation including no treatment were discussed.Possible short-term and long-term side effects of radiation therapy were discussed, including fatigue or lack of energy, localized hair loss, localized skin reaction, localized swelling or discomfort, subcutaneous fibrosis, extremity lymphedema, bonegrowth inhibition, cataract formation, radiation necrosis, mucositis (oral cavity and oropharynx), xerostomia or dry mouth, hypothyroidism, pharyngitis, esophagitis (dysphagia, odynophagia, or reflux), esophageal stricture, cough, nausea, emesis, early satiety, liver injury, kidney injury, spinal cord injury, nerve injury, blood vessel injury, fistula formation, stricture formation, stenosis formation, impaired wound healing, sub-optimal cosmetic outcome, pain, injury to other structures in the radiation adam, radiation-induced malignancies, and complications requiring surgery to correct. No guarantees of outcome were made. verbal and written consent was obtained to proceed with radiation. There will be overlap from patient's previous treatments, but we will take care not to overdose the spinal cord. The patient was simulated on Jun 05 1999. We hope to start treatments on Friday. Plan would be for 2 treatments on Friday and then 2 treatments on Friday. He would receive 1400 cGy in 350 cGy fractions twice a day over 2 days. Plan would be to repeat treatment approximately 1 weeklater and then again 1 week later. However, this type of treatment is adapting able and if he goes to rehabilitation the next cycle of therapy can be given after the rehabilitation. Alec Franklin MD This note was completed using the dictation program Fluency Direct. As such, there may be misspellings, word substitutions, or other variations that should not change the essence of the clinical content of this encounter note. If there is need for further clarification, please direct questions to the provider listed above. * Lisa Carrillo RDN - 06/05/2023 9:12 AM EST CLINICAL NUTRITION CONSULT/PROGRESS NOTE [address] [id number] Name: Farhad Dash Jr. Location: [facility] [place] A459/[id number] Date: 06/05/2023 Time: 9:12 AM How patient was identified (select 2): Medical record number and Name Discussed in interdisciplinary rounds: Ketty Dash Jr. is a 82 year old male being seen for follow-up Primary Diagnosis: stridor with airway compromise and laryngeal cancer. PMHx type 2 DM Other pertinent information: Patient denies any intolerances issues with his current feeds. Currently meeting >75% of estimated calorie and protein needs over 24 hours. Denies N/V and abdominal discomfort. Last BM was on 06/02. Scheduled for Modified barium swallow study. Feeds on hold for the test, Resume feeds, when able. Follow up with [facility]. NUTRITION ASSESSMENT: Past medical/surgical history and medications reviewed. Food/Nutrition-Related History Nutrition Support: Nutren 1.5 at 95 ml/hr over 14 hours , this provides 1995 kcal, 90.4 gm protein and 1010 ml free water Diet: NPO Previously followed diet: Jevity 1.5 at 55 ml/hr over 22 hours ( 1210 ml,1815 kcal, 77 gm protein and 919.6 ml free water ) per paper chart Food Allergies/Intolerances: None Adult Energy Intake: No significant decrease Pertinent medications/vitamins/minerals/supplements: Colace, novolog, lantus, levoxyl, miralax, Prilosec ,potassium and sodium phosphate, senna, sodium chloride Pertinent Biochemical Data: Latest Reference Range & Units 06/04/23 04:34 06/05/23 04:47 Glucose 70 - 120 mg/dL 278 (H) 220 (H) (H): Data is abnormally high On insulin, follow as per Endocrinology. Nutrition-Focused Physical Findings: Appearance: Thin Respiratory support: Supplemental O2 Delivery: Trach Collar/Mask Nasal/Oral: Swallow function, compromised or painful Digestive: No issues identified Last Bowel Movement: 06/04/23 (06/04/23 1300) Cognition: Awake, alert Skin: Sacrum- stage 2 Enteral access: G/J Tube Nutrition Focused Physical Exam: NFPE completed on 06/05/23 Subcutaneous Fat Loss: Orbital fat pads: Severe Buccal fat: Moderate Tricep: Severe Muscle Loss: Temples: Moderate Clavicles: Severe Shoulders: Severe Interosseous: Moderate Quadriceps: Severe Anthropometrics Measurements Height: 177.8 cm (5' 10") (05/27/23799) Admission weight: 69.2 kg Weight: 69.3 kg (152 lb 12.5 oz) (06/04/23799) BMI: 21.86 (05/27/23799) Usual Body Weight: 74.8 kg in Feb 2023 at MD office visit [place] weight: 78.7 kg [place] Weight Based on BMI: 24.9 Interpretation of Weight Change Prior to Admission: 7.5% weight loss in 3 months (Moderate) Weight Changes Since Admission: stable. Nutrition Prescription: Energy needs: 25-30 Kcal/kg Kcal/day: 5354-3632 Based on admission weight- 69.2 kg Protein needs: 1.25-1.5 gm/kg Protein: 86-103 Based on admission weight Fluid needs: 25 ml/kg Fluid: 1730 ml/day Based on admission weight Malnutrition: Malnutrition Present: Yes (05/27/231134) Adult Malnutrition Classification: Severe (05/27/231134) Malnutrition Characteristics: Fat loss;Muscle loss;Weight loss (05/27/231134) NUTRITION DIAGNOSIS: Malnutrition severe related to chronic illness as evidenced by 7.5% weight loss x 3 months, severe fat loss, and severe muscle loss. Swallowing difficulty related to Laryngeal SCC as evidenced by NPO and prison need for non oral route of nutrition Increase protein needs related to wound healing as evidenced by stage 2 pressure injury to sacrum Goals: Establish and maintain tube feeding tolerance within 3-5 days. Advance diet, when medically feasible NUTRITION INTERVENTION/PLAN: Continue to monitor NPO/clear liquid status Continue to monitor nutrition support Clinical Nutrition Recommendations: Diet: Advance diet when clinically feasible Enteral Nutrition: Continue Nutren 1.5 to the goal rate of 95 ml/hr over 14 hours to provide 1995 kcal, 90.4 gm protein and 1010 ml free water levothyroxine (tube feeds, if required, need to be held 1 hour before and after medication administration) Provide Free water flushes 200 mL Q6H ( maintenance) NUTRITION MONITORING AND EVALUATION: NPO status/diet advancement and tolerance Enteral nutrition intake for formula, rate, progress toward goal regimen GI tolerance for enteral nutrition Lab values warranting change with MNT Weight for trends Plan follow-up: Will follow and adjust nutrition plan of care as medical condition requires. Please contact for change(s) in patient condition requiring earlier intervention. Lisa Carrillo MS, RDN, LDN Clinical Dietitian [facility] [place] text * Sundar Jose PA-C - 06/05/2023 12:33 AM ESTAssociated Order(s): ONCOLOGY CONSULT IP CONSULT - Oncology [address] [id number] Name: Farhad Dash Jr. Location: [facility] [place] A459/A Date: 06/05/2023 Time: 12:33 AM REQUESTING SERVICE: [facility] REASON FOR CONSULT: advanced hypopharyngeal cancer REFERRING PHYSICIAN: Onurspayton DIAGNOSIS: right hypopharynx mass HISTORY OF PRESENT ILLNESS: Mr. Dash is a 82 y/o w a pmhx of CT1 cNX MX laryngeal SCC of right true vocal cord s/p radiotherapy in 2005. He was admitted admitted with severe stridor 05/26/23. Per notes, he has been hospitalizedfor much of February through present with multiple issues including ICU with COVID pneumonia, urosepsis secondary to pseudomonas UTI, and failure to thrive. Since the hospitalization he has had an indwelling jenkins. In 02/08, he had a "Large back abscess" that was I&D'd and managed with wound packing. He was recently seen by Vascular Surgery for carotid artery stenosis but intervention not offered at this time. On 05/23 he was seen by ENT in [place] for f/u of his hx of laryngeal cancer and worsening symptoms. It appears he was seen in November 2022 for globus sensation and their records noted an egd from 07/02/2022 that noted a medium side friable infiltrative and ulcerative mass found in the larynx. He was to seek earlier appt with ENT there are ENT notes from 02/18/2023 that state he had a PET CT that revealed uptake int he right arytenoid and underwent a DL biopsy that noted acute and chronic inflammation. He was again seen in ENT in 03/2023 with 2 weeks of worsening cough with mucous production, it was noted that his vocal cords are not meeting midline and the right remains immobile and left side was atrophy there were concerns of aspiration and he was sent to the [facility] ED> for concerns of aspiration. He had his PEG replaced 04/17/2023 with a GJ tube d/t concerns for aspirations He was referred to [facility] on 05/23/2023 He was to f/u as an outpatient but developed stridor so presented to the ER from SNF on 05/26/2023 for evaluation. He was evaluated by ENT. Flexible scope showed bilateral vocal fold immobility and copious thick purulent secretions on the R vocal fold. Given concern for airway compromise he was admitted to the ICU and plan for further intervention and workup showed a new mass in the right hypopharynx, right arytenoid extending into the esophagus. On 05/28/[address] chest abdomen pelvis did not reveal any additional lesions concerning for metastatic disease with staging of [id number]. On 06/04/2023 he was discussed in the tumor board today and imaging suggestive of locally destructive and erosive lesion abutting the thyroid cartilage and there is a possible chondral necrosis of the cricoid. Biopsy of this mass revealed mod to well differentiatedInvasive SCC. Surgical option would require total laryngectomy, esophagectomy with gastric pull up and would be challenging given his comorbidities. Consensus was to discuss with Medical Oncology andRadiation Oncology. He was seen by radiation oncology this am. They are planning a quad shot of XRT that is twice dailyfor 2 days. He is willing to do therapy. He has been in a jail he states he is OOB at least80% of the time. He tells me he was able to dress and wash. But he has new area on his right buttock that is a start of an decubitis ulcer ( skin tear). He denies any sob or chest pain. He has cough with purulent secretions from the tach. Thick badillo secretions. We had the opportunity to speak to his with regard to his PS and it appears he has been unable to walk, he is out of bed for about 3-4 hours a day. He his PS is likely 3. Prior to his hospitalization in March he was active and walking with a walker. He is planned to return to rehab but his current facility is unable to care fora tracheostomy. PAST MEDICAL HISTORY: Past Medical History: Diagnosis Date Diabetes mellitus (HCC) GERD (gastroesophageal reflux disease) History of cancer of larynx Hyperlipidemia Hypertension Myocardial infarction (HCC) PAST SURGICAL HISTORY: Past Surgical History: Procedure Laterality Date CORONARY ARTERY BYPASS, SINGLE EGD, FLEXIBLE,W/ENDOSCOPIC US 07/30/2019 sludge, ascites / [facility] 10/22/2019 stent removed / [facility] 07/30/2019 benign biliary papillary stenosis, stent placed / [facility] INCISION OF [place], PLANNED N/A 05/28/2023 TRACHEOSTOMY PLANNED performed by Abimael De La Rosa DO at [facility] LARYNGOSCOPY/DILATION N/A 05/28/2023 LARYNGOSCOPY DIRECT DILATION INITIAL performed by Abimael De La Rosa DO at [facility] REMOVE CATARACT, INSERT LENS PROSTH Right 06/27/2020 RIGHT EXTRACAPSULAR CATARACT REMOVAL WITH INTRAOCULAR LENS performed by Mason Hassan MD at [facility] REMOVE CATARACT, INSERT LENS PROSTH Left 07/11/2020 LEFT EXTRACAPSULAR CATARACT REMOVAL WITH INTRAOCULAR LENS performed by Mason Hassan MD at [facility] TOTAL HIP REPLACEMENT & PROSTHESIS Bilateral FAMILY HISTORY: Family History Problem Relation Age of Onset Hypertension Father SOCIAL HISTORY: Social History Tobacco Use Smoking status: Former Packs/day: 1.00 Years: 30.00 Additional pack years: 0.00 Total pack years: 30.00 Types: Cigarettes Quit date: 1969 Years since quittin.0 Smokeless tobacco: Former Types: Chew Quit date: 2004 Substance Use Topics Alcohol use: Not Currently Drug use: Never ALLERGIES: Sulfa [sulfa antibiotics] ROS: see hpi. No fevers chills sweats. He denies any pain, cp sob has cough with purulent secretions. No abd pain n/v/d. Has had weight loss. No issues with bowels or bladder. all others negative PHYSICAL EXAM: Most Recent Vital Signs: BP: 118 mmHg/57 mmHg (06/04/232199) Pulse: 88 (06/04/232199) Temp: 36.72 C (06/04/231999) Resp: 19 (06/04/232199) SpO2: 98 % (06/04/232199) Constitutional:NAD laying in bed Head: NC/AT Ears/Nose/Eyes: No nasal drainage, Sclera clear and EOMI, Pupils equal and round Mouth/Throat: No lip/oral lesions MMM Neck: supple, tracheostomy present with purulent secretions. no lymphadenopathy CV: Regular rhythm and rate, no murmur appreciated, no peripheral edema Respiratory: Normal resp rate and effort on RA, no accessory muscle use, he has diffuse course breath sounds through out. Abdomen: Soft, nontender, nondistended, normoactive bowel sounds, has Gjtube Musculoskeletal: MMM no lesion Skin: Dry, warm, has a buttock left side skin tear Neuro: AAOx3, airplane pilot photogrammetry is equal follow commands Psych: Appropriate mood/affect PE: ECOG PS LABS: CHEMISTRY: BUN, Creatinine, GFR Estimated, Sodium, Potassium, Chloride, Carbon Dioxide, Glucose, Calcium (see below for most recent value): Lab Results Component Value Date/Time BUN 17 06/04/2023 04:34 AM BUN 14 12/29/2017 02:34 PM CREAT 0.6 06/04/2023 04:34 AM CREAT 1.2 12/29/2017 02:34 PM GFRESTIMATED 57.1 (L) 12/29/2017 02:34 PM NA 133 (L) 06/04/2023 04:34 AM NA 137 03/06/2022 10:06 AM NA 140 12/29/2017 02:34 PM POTASSIUM 4.4 06/04/2023 04:34 AM POTASSIUM 5.3 (H) 03/06/2022 10:06 AM POTASSIUM 4.5 12/29/2017 02:34 PM CL 100 06/04/2023 04:34 AM CL 104 12/29/2017 02:34 PM CO2 27 06/04/2023 04:34 AM CO2 27 12/29/2017 02:34 PM CA 7.9 (L) 06/04/2023 04:34 AM CA 9.1 12/29/2017 02:34 PM BLOOD COUNT: WBC, Hgb, Platelets (see below for most recent value): Lab Results Component Value Date/Time WBC 6.29 06/04/2023 04:34 AM WBC 16.5 (H) 05/06/2023 04:37 PM WBC 8.31 12/29/2017 02:34 PM HGB 7.7 (L) 06/04/2023 04:34 AM HGB 6.6 (L) 05/07/2023 06:38 PM HGB 11.9 (L) 12/29/2017 02:34 PM PLT 173 06/04/2023 04:34 AM PLT 318 05/06/2023 04:37 PM PLT 239 12/29/2017 02:34 PM RADIOLOGY: IMPRESSION 1. Mild pulmonary edema and small bilateral pleural effusions. 2. Pulmonary edema limits evaluation for suspicious pulmonary nodules. No additional evidence of metastatic disease in the chest. Short-term follow-up CT chest recommended. 3. No evidence of metastatic disease in the abdomen/pelvis. 05/28/2022 OPERATIVE FINDINGS: 1) 6CN75H placed in-between the 2-3rd tracheal rings, red rubber catheter passed and patient was put under general anesthesia with good CO2 return in the circuit. 2) Fixed bilateral vocal folds with obvious neoplastic mass in the right hypopharynx, right arytenoid, and esophageal inlet extending 6-7cm in the esophagus. This was biopsied. PATHOLOGY: A. Right hypopharynx, biopsy: Fragments of invasive squamous cell carcinoma, well to moderately- differentiated, keratinizing B. Right arytenoid, biopsy: Fragments of invasive squamous cell carcinoma, well to moderately- differentiated, keratinizing ASSESSMENT: This is a 82yo man with a h/o CT1 cNX MX laryngeal SCC of right true vocal cord s/p radiotherapy [id number] with a new mass in the right hypopharynx, right arytenoid extending into the esophagus. He is s/p tracheostomy d/t airway compromise. . He has CT chest abdomen pelvis did not reveal any additional lesions concerning for metastatic disease with staging of [id number]. Was discussed in the tumor board and imaging suggestive of locally destructive and erosive lesion abutting the thyroid cartilage and there is a possible chondral necrosis of the cricoid. Biopsies confirming Well to mod differentieated invasive SCC RECOMMENDATIONS: The oncology team went to meet with the patient and his to review biopsy results and possible treatment options. He is clearly about what he wants. He indicated he is not interested in surgery, He is in agreement with Radiation plan proposed to him by Dr Franklin. He is not interested in chemotherapy at this time and is definitely aware he does not have the performance status to endure combined modality chemo/XRT. He is willing to see oncology when his rehabilitation stay is completed to reexamine future options. We will plan to have an oncology appt in 2 months from discharge. Ngs and PDL-1 have been requested from pathology. Patient seen, examined and discussed with Dr Bermeo and Dr Menendez More than 80 min were spent review charts, calling radiation therapy attending, records and examining the patient. Associated attestation - Shannan Bermeo MD - 06/05/2023 5:07 PM EST I have reviewed the advanced practitioner's documentation and agree with the plan of care. I acceptthe responsibility for the associated risk. I spent a total of 80 minutes coordinating, documenting, and providing care for this patient excluding time spent in the performance of separately billed services or time spent by another provider/QHP. We met with patient yesterday and he requested us to return today when his was present. We hada long meeting with them today to review diagnosis, treatment options. He has been deconditioned since his first hospitalization in March and both patient and areclear they are not interested in surgery or chemotherapy now- they are happy to proceed with radiation plan Quad shot and he has been simmed. Depending on his response to radiation treatment , if he has residual or progressive disease and has improvement in his performance status he would be willing to see oncology to see if there are options for systemic therapy. We are requesting pdl1 and NGS from biopsy sample. * Angelito Bennett MD - 06/04/2023 3:03 PM ESTAssociated Order(s): PALLIATIVE MEDICINE CONSULT IP CONSULT NOTE - Palliative Medicine [facility] [place] [id number] Name: Farhad Dash Jr. Location: [facility] A459/[id number] Date: 06/04/2023 Time: 3:03 PM REQUESTING SERVICE: Critical Care REASON FOR CONSULT: We have been asked to see this patient for goals of care. "Farhad Dash is an 82-year-old male with a history of cT1 cNx Mx squamous cell carcinoma of the right true vocal fold treated with radiotherapy in 2004. A possible new laryngeal mass was identified incidentally during an EGD performed in June 2022 and PET scan showed avidity of the right arytenoid. He presented to [facility] on 05/26/23 with worsening stridor, bilateral vocal fold immobility, and an exudative process emanating from the right arytenoid. CT neck showed an irregular lesion involving the right pyriform sinus and AE fold. Examination in the OR on 05/28/13 revealed an obvious lesion in the right hypopharynx, right arytenoid extending about 7 cm into the esophagus. Biopsy of this mass was positive for invasive squamous cell carcinoma. CT of the Chest, Abdomen, and Pelvis did not reveal any additional lesions suggestive of metastatic disease. 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 Discussion during tumor board today centered around the extent of the patient's disease. On imaging, the mass appears locally destructive and erosive. The lesion seems to abutting the thyroid cartilage and there is possible chondronecrosis of the cricoid (versus tumor necrosis). There is also soft t issue thickening of the esophagus. Again, we discussed that there are no imaging findings suggestive of metastatic disease. A surgical option for this patient would require at least a total laryngectomy, esophagectomy with gastric pull up, which could be challenging for the patient to undergo givenhis comorbidities and overall health. After multidisciplinary discussion, the official tumor board r ecommendation was for inpatient radiation oncology, medical oncology, and palliative medicine consultation. HPI: This is an 82-year-old man with laryngeal squamous cell carcinoma status post treatment in 2005, GERD, hypertension, hyperlipidemia, coronary artery disease, who was admitted with stridor. He has a recent admission for COVID and Pseudomonas infection. He underwent placement of a tracheostomy on 05/28/2023 and he underwent a biopsy of a mass that is consistent with squamous cell carcinoma. There was a tumor board (see above for details) that discussed the complexity of a potential surgery. The recommendation was to have him assess by the interdisciplinary team. Current Facility-Administered Medications: insulin aspart (NovoLOG) inj, , Subcutaneous, Q4H, Annmarie Romero MD Nutren 1.5 liquid, 95 mL/hr, Tube feed, Continuous, Mikayla Johnson MD, Paused at 06/04/23 1000 aspirin chew tab 81 mg, 81 mg, G Tube, Daily(AM), Vipul Mcdonald, DO, 81 mg at 06/04/23 0817 Insulin Glargine (Lantus) inj 10 Units, 10 Units, Subcutaneous, HS insulin, Vipul Mcdonald, DO, 10 Units at 06/03/23 2149 dextrose 50 % inj 25 mL, 25 mL, IV Push, PRN, Warner Michael MD dextrose 50 % inj 50 mL, 50 mL, IV Push, PRN, Warner Michael MD glucagon (Glucagen) inj 1 mg, 1 mg, Intramuscular, PRN, Warner Michael MD Glucose (Glutose 15) 40 % gel 15 g of glucose, 15 g of glucose, Oral, PRN, Warner Michael MD Glucose (Glutose 15) 40 % gel 30 g of glucose, 30 g of glucose, Oral, PRN, Warner Michael MD glucose chew tab 16 g, 16 g, Oral, PRN, Warner Michael MD levothyroxine (Levoxyl) tab 75 mcg, 75 mcg, G Tube, Daily 1000, Warner Michael MD, 75 mcg at06/04/23 0817 Polyethylene Glycol 3350 (Miralax) oral powder 17 g, 1 Packet, G Tube, Daily(AM), Warner Michael MD, 17 g at 06/04/23 0817 Acetaminophen (Tylenol) 160 MG/5ML oral liquid 975 mg, 975 mg, G Tube, Q6H PRN, Isreal Anderson, DO, 975 mg at 06/04/23 0845 Enoxaparin (Lovenox) inj 40 mg, 40 mg, Subcutaneous, Daily(AM), ClouserIsreal DO, 40 mg at 06/04/23 0818 omeprazole (PriLOSEC) oral susp 20 mg, 20 mg, G Tube, Daily(AM), ClouseIsreal porter DO, 20 mg at06/04/23 0818 doxazosin (Cardura) tab 2 mg, 2 mg, G Tube, Daily(AM), Warner Michael MD, 2 mg at 06/04/23 0817 chlorHEXIDINE (Periogard) 0.12 % oral rinse 15 mL, 15 mL, Oral mucosal membrane, BID (0800,1999), Warner Michael MD, 15 mL at 06/04/23 0816 Docusate Sodium (Colace) oral liquid 100 mg, 100 mg, G Tube, BID(AM/PM), Warner Michael MD, 100 mg at 06/04/23 0818 Oral Hygiene: Mouth Swab with dentifrice, , Oral, Q4H Limited (00;04;12;16), Warner Michael MD, 1 Kit at 06/04/23 0413 oxygen GAS, , Inhalation, Oxygen, Warner Michael MD, Oxygen On at 06/04/23 0800 racepinephrine 2.25 % inhalation solution 5.625 mg, 0.25 mL, Nebulizer, Q1H PRN, Cholo Causey, rosuvastatin (Crestor) tab 5 mg, 5 mg, G Tube, Daily(AM), Warner Michael MD, 5 mg at 06/04/23 0817 senna (Senokot) 1 Tablet, 1 Tablet, G Tube, Daily(AM), Warner Michael MD, 1 Tablet at 06/04/23 0817 sodium chloride 0.9 % flush peripheral norman 3 mL, 3 mL, IV Push, Q8H, Warner Michael MD, 3 mLat 06/04/23 1400 Medications as needed in the last 24 hours: Acetaminophen 975 mg every 6 hours for pain x1 PALLIATIVE ENCOUNTER FROM TODAY'S VISIT: 06/04/2023 Mr. Dash does not have pain in his neck. He has some discomfort in the sacral area. He does not have shortness of breath at the moment. He would like to walk more with physical therapy. He has some insomnia and he is moving his bowels regularly. He takes naps during the day. He lives with his . Prior to admission he was independent in basic activities of daily living and he was able to drive the car. He does not eat by mouth but he uses the feeding tube for nutrition. REVIEW OF SYMPTOMS: [Severity scale of each symptom should be based on how the patient feels now.] 1. Pain Assessment: Yes. In the sacral area. Mild. "Soreness" Current Analgesic Regimen: Yes: Acetaminophen 2. Shortness of Breath Assessment: None Current Regimen: Yes: Supplemental oxygen: previous/current hypoxemia 3. Nausea Assessment: None Current Regimen: None 4. Tiredness/Fatigue Assessment: Did not ask Current Regimen: None 5. Drowsiness Assessment: None 6. Depression Assessment: 1. During the past month, has patient been bothered by feeling down, depressed, or hopeless? No 2. During the past month, has patient been bothered by having little interest or pleasure in doing things? No Current Regimen: No 7. Anxiety Assessment: None Current Regimen: None 8. Anorexia/Lack of Appetite: Did not ask Current Regimen: None 9. Delirium/Agitation: No Current Regimen: No 10. Well-being Assessment: Did not ask 11. Constipation Assessment: Yes Current Regimen: Yes: Stool softener: Docusate, Saline laxative: MiraLax, and Stimulant laxative (bisacodyl, senna) 12. Insomnia Assessment: Yes Current Regimen: None 13. Oropharyngeal Secretions or Cough: Yes Current Regimen: Others: racepinephrine nebs 14. Rest of the review of systems negative. FUNCTIONALITY: 50% - Ambulation: Mainly sit/lie, Unable to do any work / Extensive disease. Self-care: Considerable assistance required. Intake: Normal or reduced. Conscious level: Full or confusion. ADVANCED DIRECTIVES AND [place] ORDERS FOR LIFE-SUSTAINING TREATMENT: Yes: Not found in [facility] PAST MEDICAL HISTORY: Past Medical History: Diagnosis Date Diabetes mellitus (HCC) GERD (gastroesophageal reflux disease) History of cancer of larynx Hyperlipidemia Hypertension Myocardial infarction (HCC) PAST SURGICAL HISTORY: Past Surgical History: Procedure Laterality Date CORONARY ARTERY BYPASS, SINGLE EGD, FLEXIBLE,W/ENDOSCOPIC US 07/30/2019 sludge, ascites / [facility] ERCP 10/22/2019 stent removed / [facility] ERCP 07/30/2019 benign biliary papillary stenosis, stent placed / [facility] INCISION OF [place], PLANNED N/A 05/28/2023 TRACHEOSTOMY PLANNED performed by Abimael De La Rosa DO at OR [facility] LARYNGOSCOPY/DILATION N/A 05/28/2023 LARYNGOSCOPY DIRECT DILATION INITIAL performed by Abimael De La Rosa DO at OR [facility] REMOVE CATARACT, INSERT LENS PROSTH Right 06/27/2020 RIGHT EXTRACAPSULAR CATARACT REMOVAL WITH INTRAOCULAR LENS performed by Mason Hassan MD at [facility] REMOVE CATARACT, INSERT LENS PROSTH Left 07/11/2020 LEFT EXTRACAPSULAR CATARACT REMOVAL WITH INTRAOCULAR LENS performed by Mason Hassan MD at OR [facility] TOTAL HIP REPLACEMENT & PROSTHESIS Bilateral FAMILY HISTORY: Family History Problem Relation Age of Onset Hypertension Father Family History: noncontributory SOCIAL HISTORY: Social History Tobacco Use Smoking status: Former Packs/day: 1.00 Years: 30.00 Additional pack years: 0.00 Total pack years: 30.00 Types: Cigarettes Quit date: 1969 Years since quittin.0 Smokeless tobacco: Former Types: Chew Quit date: 2004 Substance Use Topics Alcohol use: Not Currently Drug use: Never Family Support: Spouse: Primary Pertinent Social Factors: 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 His is the power of attorney recruiter. ALLERGIES: Sulfa [sulfa antibiotics] PHYSICAL EXAMINATION: Most Recent Vital Signs: BP: 113 mmHg/77 mmHg (06/04/23 1400) Pulse: 78 (06/04/23 1400) Temp: 36.67 C (06/04/23 1400) Resp: 17 (06/04/23 1400) SpO2: 98 % (06/04/23 1400) Vital Signs Last 24 Hours: Systolic BP: Most Recent Systolic BP Av mmHg Min: 89 mmHg Max: 121 mmHg Temperature: Most Recent Temperature Av.7 C Min: 36.22 C Max: 37.28 C Pulse: Pulse Av.5 Min: 72 Max: 87 Respirations: Resp Av.4 Min: 5 Max: 18 SpO2: SpO2 Av.8 % Min: 98 % Max: 100 % Constitutional: no acute distress, (+) chronically ill, (+) cachectic Neck: Tracheostomy with secretions CV: normal rate, normal rhythm Chest: normal respiratory effort Neuro: alert Psych: normal mood and affect LABS REVIEWED: yes, reviewed IMAGING REVIEWED: yes, reviewed Normal renal function, hyponatremia, normal potassium and CO2. Hypoalbuminemia, normal liver enzymes. Normal total bilirubin. Anemia, normal leukocytes and platelets Hemoglobin Results: Lab Results Component Value Date/Time HGB - [facility] 7.7 (L) 06/04/2023 04:34 AM HGB - [facility] 7.8 (L) 06/03/2023 06:17 AM [facility] - [facility] 8.3 (L) 06/02/2023 04:37 AM [facility] - [facility] 11.9 (L) 12/29/2017 02:[address] of the chest, abdomen and pelvis 06/03/2023: 1. Mild pulmonary edema and small bilateral pleural effusions. 2. Pulmonary edema limits evaluation for suspicious pulmonary nodules. No additional evidence of metastatic disease in the chest. Short-term follow-up CT chest recommended. 3. No evidence of metastatic disease in the abdomen/pelvis." ASSESSMENT/PLAN: Farhad Dash Jr. 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 The role of Palliative Medicine in the care of patients with serious illnesses is explained. Goals of care discussions/palliative encounter: He has decision making capacity. He is able to write things down on a paper when it becomes difficult to understand what he tries to say. Multiple specialties have been consulted for assistance in his case. Our team will be available if there is a need to discuss the status of his conditions and the options for treatment in an interdisciplinary family meeting. Insomnia: It is worsened by the hospital environment. He is currently in the ICU. Suggest to offer melatonin 3 mg every night through the feeding tube. Unfortunately, he does not have a lot to do. He sits in the bed/chair all the time. He would like to get stronger and walk. Please consider to have him seen more frequently by Physical therapy and Occupational therapy if possible. Constipation: His last bowel movement was 2 days ago. To monitor and for now continue MiraLax 17 g daily and consider increasing the dose of senna to 1 tablet twice a day. We appreciate your consult request and the opportunity to assist in the care of your patient. Please do not hesitate to call or page with additional questions or concerns. We will always try to remain available. * Nelli Juárez [facility]-HAND CARVER - 06/04/2023 3:00 PM ESTAssociated Order(s): ADULT SPEECH THERAPY CONSULT IP (ACUTE CARE REHAB) I, Nelli Juárez, was present in the room and actively engaged in the service(s) mentioned below. Criselda Mejía was also present and participated in the care of the patient. I have read the note below and agree with the results and recommendations made by Criselda Mejía . Nelli Juárez M.S., CCC-HAND CARVER Speech-Language Pathologist Acute Care Rehab- [facility] PASSY-WENDY VALVE ASSESSMENT- Speech-Language Pathology [facility] [place] [id number] Name: Farhad Dash Jr. Location: [facility] A459/A Date: 06/04/2023 Time: 4:20 PM Patient Status: Inpatient Insurance: Payor: MEDICARE / Plan: MEDICARE A AND B / Product Type: *No Product type* / Patient Age: [age] year old Referring Physician: Florinda Joyce MD Admission Date: 05/26/2023 History: Per EPIC Review 05/26/23 "82 yo with hx of laryngeal SCC s/p XRT in 2005 who has dysphonia and dysphagia who has been experiencing worsening symptoms, recurrent aspirations (several bouts of aspiration pneumonia), and now increased difficulty breathing. Per his , he has been hospitalizedfor much of February through present. He was admitted to the ICU with COVID pneumonia, urosepsis seco ndary to pseudomonas UTI, and failure to thrive. Since the hospitalization he has had an indwellingfoley. Prior to this, in January, he had a "Large back abscess" that was I&D'd and managed with wound packing. He was recently seen by Vascular Surgery for carotid artery stenosis and they stated they would normally offer intervention, but he should have his other more pressing medical issues addressed first. On 05/23 he was seen by ENT in [place] for f/u of his hx of laryngeal cancer and worsening symptoms. He was referred to [facility]. He was to f/u as an outpatient but developed strider so presented to the ER for evaluation. He was evaluated by ENT. Flexible nasopharyngolaryngoscopy showed bilateral vocalfold immobility and copious thick purulent secretions on the right vocal fold. Given concern for air way compromise he was admitted to the ICU and plan for further intervention." Past Medical History: Diagnosis Date Diabetes mellitus (HCC) GERD (gastroesophageal reflux disease) History of cancer of larynx Hyperlipidemia Hypertension Myocardial infarction (HCC) Past Surgical History: Procedure Laterality Date CORONARY ARTERY BYPASS, SINGLE EGD, FLEXIBLE,W/ENDOSCOPIC US 07/30/2019 sludge, ascites / [facility] ERCP 10/22/2019 stent removed / [facility] ERCP 07/30/2019 benign biliary papillary stenosis, stent placed / [facility] INCISION OF [place], PLANNED N/A 05/28/2023 TRACHEOSTOMY PLANNED performed by Abimael De La Rosa DO at OR [facility] LARYNGOSCOPY/DILATION N/A 05/28/2023 LARYNGOSCOPY DIRECT DILATION INITIAL performed by Abimael De La Rosa DO at OR [facility] REMOVE CATARACT, INSERT LENS PROSTH Right 06/27/2020 RIGHT EXTRACAPSULAR CATARACT REMOVAL WITH INTRAOCULAR LENS performed by Mason Hassan MD at [facility] REMOVE CATARACT, INSERT LENS PROSTH Left 07/11/2020 LEFT EXTRACAPSULAR CATARACT REMOVAL WITH INTRAOCULAR LENS performed by Mason Hassan MD at OR [facility] TOTAL HIP REPLACEMENT & PROSTHESIS Bilateral IMAGING CT NECK 05/26/23 "IMPRESSION 1. Mucosal irregularity with soft tissue thickening and enhancement involving the right piriform sinus and right arytenoepiglottic fold. Findings are nonspecific, and correlation with laryngoscopy findings is recommended. Asymmetric medial position of the right arytenoid cartilage may be secondary to vocal cord dysfunction. 2. 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 3. No suspicious cervical lymphadenopathy is identified. 4. Advanced atherosclerosis with severe stenosis of the right internal carotid artery." Trach placed: 05/28/2023 Education/Employment History: Retired, [employer]er Premorbid Functional Level: Did not obtain Barriers to Learning: Medical Status Hearing Acuity: Deferred Best Learning Method: Auditory Assessment/Diagnosis: Pt presents with Shiley Flex [id number] in place. Min secretions appreciated around trach hub. Pt SpO2 >90% prior to PMV trials. RR WFL. Extensive education provided to pt and family regarding purpose and use of PMV prior to placement. Manual occlusion x1 productive for raspy voicing. PMV donned. PMV doffed @ 30 second, 1 minute, and 5 minute intervals. No significant back pressure appreciated. Raspy/breathy voicing achieved with PMV in place. Pt benefited from min cues for coordination of respiration and phonation. Trials terminated at 5 minutes d/t pt fatigue though vitals remained stable. PMV Tolerance/Rehab Potential: Good/fair Pain: Patient has complaints of pain. Pain located on bottom. Nursing aware. TREATMENT PLAN/RECOMMENDATIONS: Speech - Communication Services: Indicated Patient/Family Goals: "Anything to help him" Speech - Communication Goals: Tolerate PMV for > 5 minutes with O2 saturation > 90% Patient/Family Education Provided: YES Topic: Use of PMV Method of Education: Verbal Discussion/Explanation Patient/Family's Response to the Education: Verbalized Agreement/Understanding Additional Education Needed: YES Additional Recommendations: Continued PMV trials TRACHEOSTOMY TUBE: Type Shiley Size 6 Cuff: Cuffless SUPPLEMENTAL OXYGEN: Amount N/A Oxygen Method: RA SECRETIONS: Secretion Location: Tracheal Amount Min Consistency Crusted ORAL MOTOR ASSESSMENT Facial Symmetry: Grossly Within functional limits Labial Function: WFL via observation Lingual Function: WFL via observation Velar Function: Did not test Dentition: Upper and Lower Dentures SPEECH PRODUCTION DATA O2 Saturation >90% Vocal Intensity Weak Vocal Quality Raspy/breathy Coordination of Respiration/Phonation WFL with min cues Intelligibility/Length of Utterance Mildly impaired [facility] Coordinator Clinician * Lisandra Arellano PsyD - 06/03/2023 10:31 AM ESTAssociated Order(s): PSYCHOLOGY CONSULT IP ICU PSYCHOLOGY EVALUATION 06/05/2023 10:31 AM HD #10 Referring Physician: [facility] wally team Farhad Dash Jr. 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 Now s/p direct laryngoscopy, esophagoscopy and biopsy; tracheotomy on 05/28/[address] De La Rosa. Now with new diagnosis of SCC. He was seen by ICU Psychology in order to evaluate psychological functioning and coping with new trach. Farhad was sitting up in bed with his present in the room. Both were agreeable to speaking with me. Farhad communicated by writing, nodding, and mouthing words due to his recent trach. He presented with anxious mood and congruent affect. He was alert and fully oriented. He feels that he understands his current medical status. He did not feel that he understood what to expect from this trach and feels this was much more invasive than he anticipated. The patient's provided her understandingof the sequence of events during this admission as well, which sounded appropriate. However, Farhad would like oncology to speak directly to his because they had only come in when he was here alone. He mouthed, "She does not understand." Generally, Farhad reports distress associated with his hospitalization and with learning the pathology. He and his have not told their son yet about this news. Both feel that they are coping the best they can with events. Farhad was generally quite quiet inconversation and expressed some frustration with events. He is generally a calm person and has no history of anxiety or other psychiatric problems. MENTAL STATUS EVALUATION: Appearance: within normal limits and dressed in hospital garb Behavior: appropriate and cooperative Speech: No speech; trached Mood: dysphoric Affect: constricted Thought Process: within normal limits and goal directed Thought Content: Delusions: No Hallucinations: No Obsessions: No Homicidal: No Suicidal: No Sensorium: Did not assess due to communication barriers Cognition: grossly intact Insight: fair Judgment: fair SYMPTOM ASSESSMENT: DELIRIUM: Patient denied symptoms of delirium MENTAL HEALTH HISTORY Denied any mental health history HISTORY OF VIOLENCE OR TRAUMA Did not assess SUICIDE RISK ASSESSMENT: Suicide/Homicide: denied by patient. Protective factors: resilience: moderate, easy access to effective clinical interventions: moderate, Family and community support: moderate, skills in problem-solving, coping, and distress tolerance:moderate, and cultural and adventist beliefs that discourage suicide and support hopefulness: moderate Previous attempts: no previous attempts Risk factors: Major Physical Illness: Yes SUBSTANCE ABUSE/DEPENDENCE HISTORY: ETOH: Did not assess. Drugs: denied. Nicotine: Past smoker ASSESSMENT/PLAN: Farhad Dash Jr. was admitted with stridor and airway compromise. He is now s/p trach and he was made aware that his pathology demonstrated squamous cell carcinoma. Patient and his feel they understand the diagnosis and options thought the patient requests that oncology speaks directly with his because they have not yet. Overall they are coping as best they can and taking it one day at a time. WORKING DIAGNOSIS: R/o Adjustment Disorder with Depressed Mood RECOMMENDATIONS: 1. ICU Psychology will follow and assist as able. Thank you for allowing me to participate in the care of this patient. Please do not hesitate to contact me with any questions or concerns. 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 Now s/p direct laryngoscopy, esophagoscopy and biopsy; tracheotomy on05/28/[address] De La Rosa. First trach change performed 06/03/2023. Endocrinology consulted for management of hyperglycemia. Lab Results Component Value Date/Time HEMOGLOBIN A1C - [facility] 6.0 (H) 05/27/2023 05:25 AM PROFESSIONAL DRIVER REGIMEN: Metformin 1000 mg BID Bedside glucose (min, max, avg last 24 hours): Glucose (Bedside) Av.3 Min: 125 Max: 246 Bedside: Patient Vitals for the past 24 hrs: Glucose (Bedside) 06/03/23 0615 246 06/02/23 2310 125 06/02/23 1745 134 06/02/23 1250 144 Post meal: No data found. Current regimen - lantus 10 units hs and novolog very high dose scale Impression Type 2 diabetes Continue Insulin Lantus 10 units hs Novolog Q4 hrs for tube feeding: for nutren 1.5 30-60 ml per hr 151-200 1 unit 201-250 2 units 251-300 2 units 351-400 3 units 401-450 3 units Check BG Q4 hrs Nutren 1.5 62 ml per hr = 44 gm carbs= 250 ml 30 ml per hr = 22 gm carbs 15 ml per hr = 11 gm carbs Annmarie Romero MD * Dillan Mehta MD - 06/02/2023 2:38 PM ESTAssociated Order(s): REHAB CONSULT IP CONSULT - Physical Medicine & Rehabilitation [facility] [place] [id number] Name: Farhad Dash Jr. Location: [facility] A459/[id number] Date: 06/02/2023 Time: 2:38 PM REASON FOR CONSULT: Disposition Planning Admit Date: 05/26/2023 Attending Physician: Viktoriya Ha, DO HPI "Farhad Dash Jr. is a(n) 82 year old male PMH SCC s/p XRT in 2005, HTN, DLD, CAD, carotid artery stenosis, s/p RCA DEBORAH stent (2009) and unsuccessful circumflex intervention, s/p CABG x2, paroxysmalA fib, [aroxysmal V tach, hx laryngeal cancer, hx TB, GERD, urinary retention, DM2, hypothyroidism,hearing loss, OA, osteoporosis who has been experiencing worsening symptoms, recurrent aspirations (several bouts of aspiration pneumonia), and now increased difficulty breathing. Per his , he has been hospitalized for much of February through present. He was admitted to the ICU with COVID pneumonia, urosepsis secondary to pseudomonas UTI, and failure to thrive. Since the hospitalization he has had an indwelling jenkins. Prior to this, in January, he had a "Large back abscess" that was I&D'd and managed with wound packing. He was recently seen by Vascular Surgery for carotid artery stenosis and they stated they would normally offer intervention, but he should have his other more pressing medical issues addressed first. On 05/23 he was seen by ENT in [place] for f/u of his hx of laryngeal cancer and worsening symptoms. He was referred to [facility]. He was to f/u as an outpatient but developed strider so presented to the ER for evaluation. He was evaluated by ENT. Flexible nasopharyngolaryngoscopy showed bilateral vocalfold immobility and copious thick purulent secretions on the right vocal fold. Given concern for airway compromise he was admitted to the ICU and plan for further intervention. Flexible nasopharyngolaryngoscopy showed bilateral vocal fold immobility and copious thick purulentsecretions on the right vocal fold. He received racemic epinephrine and dexamethasone. CT neck 05/26showed soft tissue thickening and enhancement involving the right piriform sinus and right arytenoepiglottic fold, chondroradionecrosis, severe stenosis of JUAN ALBERTO. Ct chest showed moderate R pleural effusion, ground glass opacities in RUL, pulmonary nodules, pulmonary artery dilation, ectatic ascending aorta. He was started on IV Zosyn. ENT consulted, s/ direct laryngoscopy, esophagoscopy and biopsy and tracheotomy on 05/28. " 05/27: transitioned to unasyn 05/28: tracheotomy, direct laryngoscopy, biiopsy 05/30: HAND CARVER rec NPO, tolerating tube feeds 05/31: Path resulted invasivee SCC 06/01: jenkins placed for retention Patient is participating in therapy. Pain well controlled on current regimen. LBM today, reported some blood at urethral meatus due to straight cath. reports she can provide 24/7 supervision butcannot support him physically if needed to lift him. No fever, chills, headaches, chest pain, shortness of breath. Review of Systems per HPI Past Medical History: Diagnosis Date Diabetes mellitus (HCC) GERD (gastroesophageal reflux disease) History of cancer of larynx Hyperlipidemia Hypertension Myocardial infarction (HCC) Past Surgical History: Procedure Laterality Date CORONARY ARTERY BYPASS, SINGLE EGD, FLEXIBLE,W/ENDOSCOPIC US 07/30/2019 sludge, ascites / [facility] ERCP 10/22/2019 stent removed / [facility] ER[facility] 07/30/2019 benign biliary papillary stenosis, stent placed / [facility] INCISION OF [place], PLANNED N/A 05/28/2023 TRACHEOSTOMY PLANNED performed by Abimael De La Rosa DO at OR [facility] LARYNGOSCOPY/DILATION N/A 05/28/2023 LARYNGOSCOPY DIRECT DILATION INITIAL performed by Abimael De La Rosa DO at OR [facility] REMOVE CATARACT, INSERT LENS PROSTH Right 06/27/2020 RIGHT EXTRACAPSULAR CATARACT REMOVAL WITH INTRAOCULAR LENS performed by Mason Hassan MD at [facility] REMOVE CATARACT, INSERT LENS PROSTH Left 07/11/2020 LEFT EXTRACAPSULAR CATARACT REMOVAL WITH INTRAOCULAR LENS performed by Mason Hassan MD at OR [facility] TOTAL HIP REPLACEMENT & PROSTHESIS Bilateral Social History Tobacco Use Smoking status: Former Packs/day: 1.00 Years: 30.00 Additional pack years: 0.00 Total pack years: 30.00 Types: Cigarettes Quit date: 1969 Years since quittin.0 Smokeless tobacco: Former Types: Chew Quit date: 2004 Substance Use Topics Alcohol use: Not Currently Drug use: Never Family History Problem Relation Age of Onset Hypertension Father Review of patient's allergies indicates: Allergen Reactions Sulfa [Sulfa Antibiotics] Rash Rash Current Facility-Administered Medications Medication Dose Route Frequency Provider aspirin chew tab 81 mg 81 mg G Tube Daily(AM) Vipul Mcdonald DO Insulin Glargine (Lantus) inj 10 Units 10 Units Subcutaneous HS insulin Vipul Mcdonald DO Nutren 1.5 liquid 95 mL/hr Tube feed QHS Warner Michael MD dextrose 50 % inj 25 mL 25 mL IV Push PRN Warner Michael MD dextrose 50 % inj 50 mL 50 mL IV Push PRN Warner Michael MD glucagon (Glucagen) inj 1 mg 1 mg Intramuscular PRN Warner Michael MD Glucose (Glutose 15) 40 % gel 15 g of glucose 15 g of glucose Oral PRN Warner Michael MD Glucose (Glutose 15) 40 % gel 30 g of glucose 30 g of glucose Oral PRN Warner Michael MD glucose chew tab 16 g 16 g Oral PRN Warner Michael MD insulin aspart (NovoLOG) inj Subcutaneous Q6H Warner Michael MD levothyroxine (Levoxyl) tab 75 mcg 75 mcg G Tube Daily 1000 Warner Michael MD Polyethylene Glycol 3350 (Miralax) oral powder 17 g 1 Packet G Tube Daily(AM) Warner Michael MD Acetaminophen (Tylenol) 160 MG/5ML oral liquid 975 mg 975 mg G Tube Q6H PRN Isreal Anderson DO Enoxaparin (Lovenox) inj 40 mg 40 mg Subcutaneous Daily(AM) Isreal Anderson DO omeprazole (PriLOSEC) oral susp 20 mg 20 mg G Tube Daily(AM) Isreal Anderson, doxazosin (Cardura) tab 2 mg 2 mg G Tube Daily(AM) Warner Michael MD chlorHEXIDINE (Periogard) 0.12 % oral rinse 15 mL 15 mL Oral mucosal membrane BID (0800,1999) Warner Michael MD Docusate Sodium (Colace) oral liquid 100 mg 100 mg G Tube BID(AM/PM) Warner Michael MD Oral Hygiene: Mouth Swab with dentifrice Oral Q4H Limited (00;04;12;16) Warner Michael MD oxygen GAS Inhalation Oxygen Warner Michael MD racepinephrine 2.25 % inhalation solution 5.625 mg 0.25 mL Nebulizer Q1H PRN Cholo Causey DO rosuvastatin (Crestor) tab 5 mg 5 mg G Tube Daily(AM) Warner Michael MD senna (Senokot) 1 Tablet 1 Tablet G Tube Daily(AM) Warner Michael MD sodium chloride 0.9 % flush peripheral norman 3 mL 3 mL IV Push Q8H Warner Michael MD PREVIOUS FUNCTIONAL STATUS: Prior Level of Function Reported by: Patient (05/31/231156) Ambulation: Ambulatory with device (05/31/231156) Ambulatory Device: Rollator (05/31/231156) Grooming: Independent (05/31/231156) Bathing: Assistance (05/31/231156) Dressing: Assistance (05/31/231156) Feeding: Independent (05/31/231156) Toileting: Assistance (05/31/231156) Meal Prep: Assistance (05/31/231156) Homemaking: Assistance (05/31/231156) Shopping: Assistance (05/31/231156) Home Set-up and Support System: Lives with: Spouse (05/31/231156) Assistance available: Yes (05/31/231156) Dwelling type: Multi-story home (05/31/231156) Entry steps: 1 (05/31/231156) Inside steps: (5 steps to bedroom, 7 steps to full bathroom) (05/31/231156) Bedroom location: 1st floor (05/31/231156) Bath location: 2nd floor full bath (05/31/231156) Assistive devices used: Devices at home: Rollator (05/31/23 1225) Recent Physical Therapy Assessment: P.T. Bed Mobility Supine-Sit: Minimal Assistance (05/31/23 1225) Transfers Sit-Stand: Minimal Assistance (x2) (05/31/23 122) Stand-Sit: Minimal Assistance (05/31/23 122) W/C-Bed/Mat: Minimal Assistance (05/31/23 122) Recent Occupational Therapy Assessments: Self Care Able to provide self care: Yes (05/31/231156) Grooming: Supervision (Please comment) (05/31/231156) Dressing Upper Body: Minimal Assistance (gown) (05/31/23 115) Lower Body: Maximal Assistance (socks) (05/31/23 115) Functional Ambulation Assistive Device: Rolling walker (05/31/231156) Distance in feet:: 3 (05/31/231156) Level of Assistance: Minimal Assistance (05/31/23 115) Bed Mobility Supine-Sit: Minimal Assistance (05/31/23 115) OT Transfers Sit-Stand: Minimal Assistance (x2) (05/31/231156) Stand-Sit: Minimal Assistance (05/31/23 115) Bed-Chair: Minimal Assistance (05/31/231156) Current level of function: Weight Bearing Status: Weight bearing as tolerated (05/31/231224) Bed mobility: Bed Mobility Supine-Sit: Minimal Assistance (05/31/23 115) Transfer: OT Transfers Sit-Stand: Minimal Assistance (x2) (05/31/23 115) Stand-Sit: Minimal Assistance (05/31/23 115) Bed-Chair: Minimal Assistance (05/31/23 115) Ambulation: Functional Ambulation Assistive Device: Rolling walker (05/31/23 115) Distance in feet:: 3 (05/31/23 115) Level of Assistance: Minimal Assistance (05/31/23 115) Physical Examination BP: 111 mmHg/69 mmHg (06/02/23 1300) Pulse: 82 (06/02/23 1300) Temp: 36.22 C (06/02/23 1200) Resp: 18 (06/02/23 1300) SpO2: 100 % (06/02/23 1000) Vital Signs Last 24 Hours: BP Min: 105/66 Max: 119/49 Pulse Av.2 Min: 75 Max: 99 Most Recent Temperature Av.5 C Min: 36.22 C Max: 36.72 C Resp Av.8 Min: 12 Max: 19 General: NAD; resting comfortably; conversing appropriately Respiratory: nonlabored breathing Skin: no erythema, cyanosis, or other rashes Psychiatric: appropriate mood and affect Neuro/MSK: Aox3 Recall 1/3 Knew the presidents Could spell WORLD backwards No aphasia CN2-12 normal 4+/5 bilateral upper extremity strength in C5-T1 myotomes sensation intact to light touch in bilateral upper extremities in C5-T1 dermatomes reflexes 2+ bilaterally in biceps, brachioradialis 4/5 bilateral lower extremity strength L2-S2 myotomes, except DF/PF 5/5 sensation intact to light touch in bilateral lower extremities L2-S2 dermatomes reflexes 2+ bilaterally in patellae, achilles negative zimmerman bilaterally Data Review Hemoglobin AIC Results: Lab Results Component Value Date/Time HEMOGLOBIN A1C - [facility] 6.0 (H) 05/27/2023 05:25 AM Recent Results (from the past 24 hour(s)) GLUCOSE METER, POINT OF CARE Collection Time: 06/01/23 5:14 PM Result Value Ref Range Glucose Meter 112 70 - 120 mg/dL GLUCOSE METER, POINT OF CARE Collection Time: 06/01/23 11:18 PM Result Value Ref Range Glucose Meter 262 (H) 70 - 120 mg/dL CBC Collection Time: 06/02/23 4:37 AM Result Value Ref Range WBC 7.44 4.00 - 10.80 K/uL RBC 2.57 4.50 - 5.25 M/uL HGB 8.3 (L) 14.0 - 16.8 g/dL HCT 26.6 (L) 40.0 - 48.4 % MCV 103.5 82.0 - 99.5 fL MCH 32.3 27.0 - 34.0 pg MCHC 31.2 32.0 - 36.0 g/dL RDW 18.1 11.5 - 15.5 % PLT 159 140 - 400 K/uL MPV 9.7 6.6 - 11.1 fL nRBCs 0 <=0 /100 WBCs BASIC METABOLIC PANEL Collection Time: 06/02/23 4:37 AM Result Value Ref Range BUN 18 6 - 20 mg/dL Creatinine 0.6 0.6 - 1.2 mg/dL Estimated Glomerular Filtration Rate >90 >=60 mL/min Sodium 137 135 - 146 mmol/L Potassium 4.7 3.5 - 5.1 mmol/L Chloride 102 98 - 107 mmol/L CO2 30 22 - 32 mmol/L Anion Gap 5 (L) 7 - 15 mmol/L Glucose 152 (H) 70 - 120 mg/dL Calcium 8.0 (L) 8.4 - 10.2 mg/dL MAGNESIUM Collection Time: 06/02/23 4:37 AM Result Value Ref Range Magnesium 1.9 1.5 - 2.6 mg/dL PHOSPHORUS Collection Time: 06/02/23 4:37 AM Result Value Ref Range Phosphorus 2.5 2.5 - 4.8 mg/dL GLUCOSE METER, POINT OF CARE Collection Time: 06/02/23 5:18 AM Result Value Ref Range Glucose Meter 182 (H) 70 - 120 mg/dL GLUCOSE METER, POINT OF CARE Collection Time: 06/02/23 12:49 PM Result Value Ref Range Glucose Meter 144 (H) 70 - 120 mg/dL LABS: CBC Lab Results Component Value Date/Time WBC 7.44 06/02/2023 04:37 AM WBC 16.5 (H) 05/06/2023 04:37 PM WBC 8.31 12/29/2017 02:34 PM RBC 2.57 06/02/2023 04:37 AM RBC 3.19 (L) 05/06/2023 04:37 PM RBC 3.73 (L) 12/29/2017 02:34 PM HGB 8.3 (L) 06/02/2023 04:37 AM HGB 6.6 (L) 05/07/2023 06:38 PM HGB 11.9 (L) 12/29/2017 02:34 PM HCT 26.6 (L) 06/02/2023 04:37 AM HCT 36.9 (L) 12/29/2017 02:34 PM MCV 103.5 06/02/2023 04:37 AM MCV 98.9 (H) 05/06/2023 04:37 PM MCV 98.9 12/29/2017 02:34 PM MCH 32.3 06/02/2023 04:37 AM MCH 32.8 (H) 05/06/2023 04:37 PM MCH 31.9 12/29/2017 02:34 PM MCHC 31.2 06/02/2023 04:37 AM MCHC 33.1 05/06/2023 04:37 PM MCHC 32.2 12/29/2017 02:34 PM RDW 18.1 06/02/2023 04:37 AM RDW 17.4 (H) 05/06/2023 04:37 PM RDW 15.7 (H) 12/29/2017 02:34 PM PLT 159 06/02/2023 04:37 AM PLT 318 05/06/2023 04:37 PM PLT 239 12/29/2017 02:34 PM MPV 9.7 06/02/2023 04:37 AM NEUTS 47.8 05/26/2023 01:59 PM NEUTS 88.2 (H) 05/06/2023 04:37 PM NEUTS 45.9 12/29/2017 02:34 PM LYMP 38.6 12/29/2017 02:34 PM MONOS 8.1 05/26/2023 01:59 PM MONOS 11.4 (H) 12/29/2017 02:34 PM EOS 1.1 05/26/2023 01:59 PM EOS 0.0 (L) 05/06/2023 04:37 PM EOS 3.7 12/29/2017 02:34 PM BASOS 0.6 05/26/2023 01:59 PM BASOS 0.4 12/29/2017 02:34 PM LABS: BMP Lab Results Component Value Date/Time BUN 18 06/02/2023 04:37 AM BUN 14 12/29/2017 02:34 PM CREAT 0.6 06/02/2023 04:37 AM CREAT 1.2 12/29/2017 02:34 PM GFRESTIMATED 57.1 (L) 12/29/2017 02:34 PM NA 137 06/02/2023 04:37 AM NA 137 03/06/2022 10:06 AM NA 140 12/29/2017 02:34 PM POTASSIUM 4.7 06/02/2023 04:37 AM POTASSIUM 5.3 (H) 03/06/2022 10:06 AM POTASSIUM 4.5 12/29/2017 02:34 PM CL 102 06/02/2023 04:37 AM CL 104 12/29/2017 02:34 PM CO2 30 06/02/2023 04:37 AM CO2 27 12/29/2017 02:34 PM AGP 5 (L) 06/02/2023 04:37 AM AGP 9 12/29/2017 02:34 PM CA 8.0 (L) 06/02/2023 04:37 AM CA 9.1 12/29/2017 02:34 PM Imaging studies: XR CHEST 1 VIEW Narrative: EXAM XR CHEST 1 VIEW - 05/28/2023 3:13 pm HISTORY S/p tracheostomy TECHNIQUE Single portable semi upright view the chest submitted for interpretation. COMPARISON 05/26/2023. FINDINGS Tracheostomy tube is present and appears well aligned. Sternotomy wires are noted. Cardiac size is upper limits of normal. Patchy consolidative changes throughout both lungs, similar to the recent CT. This could again represent a multifocal infectious process. No obvious pneumothorax. The right pleural fluid with better evidenced on the current CT. Old bilateral rib fractures are noted. Old left clavicle fracture. Impression: IMPRESSION 1. Tracheostomy tube appears well position. 2. Patchy bilateral airspace opacities, better evidenced on the recent CT, could represent multifocal infectious process. Assessment and Plan Principal Problem: Stridor (POA: Yes) Active Problems: Difficult airway for intubation (POA: Yes) Laryngeal mass (POA: Yes) Severe protein-energy malnutrition (HCC) (POA: Yes) Benign essential hypertension (POA: Yes) Carotid stenosis (POA: Yes) Overview: Last Assessment & Plan: I had [...] should go to the emergency room immediately. 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 (POA: Yes) Dyslipidemia, goal LDL below 70 (POA: Yes) Gastroesophageal reflux disease (POA: Yes) Hypothyroidism (POA: Yes) Paroxysmal atrial fibrillation (HCC) (POA: Yes) Type 2 diabetes mellitus without complication (HCC) (POA: Yes) Vocal cord dysfunction (POA: Yes) Tracheostomy status (HCC) (POA: No) Urinary retention (POA: Yes) POA = Present On Admission Farhad Dash Jr. is a(n) 82 year old male PMH SCC s/p XRT in 2005, HTN, DLD, CAD, carotid artery stenosis, s/p RCA DEBORAH stent (2009) and unsuccessful circumflex intervention, s/p CABG x2, paroxysmal A fib, [aroxysmal V tach, hx laryngeal cancer, hx TB, GERD, urinary retention, DM2, hypothyroidism, hearing loss, OA, osteoporosis who presents with mobility and ADL deficits secondary to worsening stridor s/p trach. Plan -Will continue to monitor patient and make recommendations at the appropriate time as we do not know the plan from ENT with regards to his biopsy and whether or not he will need surgery for this problem. Dillan Mehta MD Physical Medicine and Rehabilitation [facility] Associated attestation - Kike Shay III, MD - 06/02/2023 9:51 PM EST I saw and evaluated the patient today. I have reviewed the trainee note and agree. He may be appropriate for transfer to inpatient rehabilitation if it was felt that pulmonary status could improve topoint that could care for him at home and with patient manage jenkins and tube feeds in addition. Would not recommend acute inpatient rehab if he might return to OR in coming days to few weeks. * Cholo Diaz MD - 06/02/2023 11:29 AM ESTAssociated Order(s): UROLOGY CONSULT IP CONSULT - Urology [facility]-[address] [address] Name: Farhad Dash Jr. Location: [facility] [id number] Date: 06/02/2023 Time: 11:30 AM HPI: Farhad Dash Jr. 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 Urologic history is significant for BPH typically managed with doxazosin. Patient states that his urine stream is not strong but have been relatively stable for a long time. He was hospitalized recently for COVID pneumonia and Pseudomonas UTI. This started around February and March. He has had a Jenkins catheter starting . His doxazosin has been held since early March as well. He was told that the medication can not be crushed. He was discharged home but was brought back on May 23 due to worsening stridor. He was admitted to intensive care unit for further management. His Jenkins catheter was removed on May 28 after he passed void trial. Jenkins catheter had to be put back in yesterday due to urinary retention. There was reportedly some difficulty with Jenkins catheter placement yesterday. His cause some traumato the meatus. His Jenkins catheter is currently in place and draining urine but primary service has noticed blood around the catheter on the meatus. He is currently hemodynamically stable. His hemoglobin is stable around 8.3 today He was a former smoker, quit few decades ago. Smoked for 50 years. He denies ever seeing gross hematuria Past Medical History: Diagnosis Date Diabetes mellitus (HCC) GERD (gastroesophageal reflux disease) History of cancer of larynx Hyperlipidemia Hypertension Myocardial infarction (HCC) Past Surgical History: Procedure Laterality Date CORONARY ARTERY BYPASS, SINGLE EGD, FLEXIBLE,W/ENDOSCOPIC US 07/30/2019 sludge, ascites / [facility] ERCP 10/22/2019 stent removed / [facility] ER[facility] 07/30/2019 benign biliary papillary stenosis, stent placed / [facility] INCISION OF [place], PLANNED N/A 05/28/2023 TRACHEOSTOMY PLANNED performed by Abimael De La Rosa DO at [facility] LARYNGOSCOPY/DILATION N/A 05/28/2023 LARYNGOSCOPY DIRECT DILATION INITIAL performed by Abimael De La Rosa DO at [facility] REMOVE CATARACT, INSERT LENS PROSTH Right 06/27/2020 RIGHT EXTRACAPSULAR CATARACT REMOVAL WITH INTRAOCULAR LENS performed by Mason Hassan MD at [facility] REMOVE CATARACT, INSERT LENS PROSTH Left 07/11/2020 LEFT EXTRACAPSULAR CATARACT REMOVAL WITH INTRAOCULAR LENS performed by Mason Hassan MD at [facility] TOTAL HIP REPLACEMENT & PROSTHESIS Bilateral Family History Problem Relation Age of Onset Hypertension Father Social History Socioeconomic History Marital status: Spouse name: Not on file Number of children: Not on file Years of education: Not on file Highest education level: Not on file Occupational History Not on file Tobacco Use Smoking status: Former Packs/day: 1.00 Years: 30.00 Additional pack years: 0.00 Total pack years: 30.00 Types: Cigarettes Quit date: 1970 Years since quittin.0 Smokeless tobacco: Former Types: Chew Quit date: 2004 Substance and Sexual Activity Alcohol use: Not Currently Drug use: Never Sexual activity: Not on file Other Topics Concern Not on file Social History Narrative Not on file Social Determinants of Health Financial Resource Strain: Not on file Food Insecurity: Not on file Transportation Needs: Not on file Physical Activity: Not on file Stress: Not on file Social Connections: Not on file Intimate Partner Violence: Not on file Housing Stability: Not on file Current Facility-Administered Medications Medication Dose Route Frequency Provider aspirin chew tab 81 mg 81 mg G Tube Daily(AM) Vipul Mcdonald DO Insulin Glargine (Lantus) inj 10 Units 10 Units Subcutaneous HS insulin Vipul Mcdonald DO Nutren 1.5 liquid 95 mL/hr Tube feed QHS Warner Michael MD dextrose 50 % inj 25 mL 25 mL IV Push PRN Warner Michael MD dextrose 50 % inj 50 mL 50 mL IV Push PRN Warner Michael MD glucagon (Glucagen) inj 1 mg 1 mg Intramuscular PRN Warner Michael MD Glucose (Glutose 15) 40 % gel 15 g of glucose 15 g of glucose Oral PRN Warner Michael MD Glucose (Glutose 15) 40 % gel 30 g of glucose 30 g of glucose Oral PRN Warner Michael MD glucose chew tab 16 g 16 g Oral PRN Warner Michael MD insulin aspart (NovoLOG) inj Subcutaneous Q6H Warner Michael MD levothyroxine (Levoxyl) tab 75 mcg 75 mcg G Tube Daily 1000 Warner Michael MD Polyethylene Glycol 3350 (Miralax) oral powder 17 g 1 Packet G Tube Daily(AM) Warner Michael MD Acetaminophen (Tylenol) 160 MG/5ML oral liquid 975 mg 975 mg G Tube Q6H PRN Isreal Anderson DO Enoxaparin (Lovenox) inj 40 mg 40 mg Subcutaneous Daily(AM) Isreal Anderson DO omeprazole (PriLOSEC) oral susp 20 mg 20 mg G Tube Daily(AM) Isreal Anderson DO doxazosin (Cardura) tab 2 mg 2 mg G Tube Daily(AM) Warner Michael MD chlorHEXIDINE (Periogard) 0.12 % oral rinse 15 mL 15 mL Oral mucosal membrane BID (08,1999) Warner Michael MD Docusate Sodium (Colace) oral liquid 100 mg 100 mg G Tube BID(AM/PM) Warner Michael MD Oral Hygiene: Mouth Swab with dentifrice Oral Q4H Limited (00;04;12;16) Warner Michael MD oxygen GAS Inhalation Oxygen Warner Michael MD racepinephrine 2.25 % inhalation solution 5.625 mg 0.25 mL Nebulizer Q1H PRN Cholo Causey DO rosuvastatin (Crestor) tab 5 mg 5 mg G Tube Daily(AM) Warner Michael MD senna (Senokot) 1 Tablet 1 Tablet G Tube Daily(AM) Warner Michael MD sodium chloride 0.9 % flush peripheral norman 3 mL 3 mL IV Push Q8H Warner Michael MD Review of patient's allergies indicates: Allergen Reactions Sulfa [Sulfa Antibiotics] Rash Rash REVIEW OF SYSTEMS: Constitutional: (-) fever Eyes: (-) changes in vision ENT: (-) changes in hearing Cardiovascular: (-) chest pain Pulmonary: (-) shortness of breath Abdominal/GI: (-) pain (-) nausea, vomiting, diarrhea Musculoskeletal: (-) weakness Endocrine: (-) heat or cold intolerance Skin: (-) new rashes : (-) frequency, urgency, incontinence, gross hematuria PHYSICAL EXAMINATION: BP 119/49 | Pulse 80 | Temp 36.5 C (97.7 F) (Tympanic) | Resp 13 | Ht 1.778 m (5' 10") | Wt 73.2 kg (161 lb 6 oz) | SpO2 100% | BMI 23.16 kg/m | BSA 1.9 m Constitutional: Alert, no acute distress Skin: No obvious rashes or lesions Eyes: No scleral icterus ENT/Mouth: No tracheal deviation Cardiovascular: Normal rate, regular rhythm Respiratory: Non-labored breathing Gastrointestinal: Abdomen is soft, non-tender, non-distended Neurological: No gross focal deficits Psychiatric: Normal mood and affect Genitourinary: No suprapubic distention. Jenkins in draining concentrated yellow urine. Dried blood on the meatus but there is no active bleeding. Circumcised penis with terminal meatus LABS: CHEMISTRY: BUN, Creatinine, GFR Estimated, Sodium, Potassium, Chloride, Carbon Dioxide, Glucose, Calcium (see below for most recent value): Lab Results Component Value Date/Time BUN 18 06/02/2023 04:37 AM BUN 14 12/29/2017 02:34 PM CREAT 0.6 06/02/2023 04:37 AM CREAT 1.2 12/29/2017 02:34 PM GFRESTIMATED 57.1 (L) 12/29/2017 02:34 PM NA 137 06/02/2023 04:37 AM NA 137 03/06/2022 10:06 AM NA 140 12/29/2017 02:34 PM POTASSIUM 4.7 06/02/2023 04:37 AM POTASSIUM 5.3 (H) 03/06/2022 10:06 AM POTASSIUM 4.5 12/29/2017 02:34 PM CL 102 06/02/2023 04:37 AM CL 104 12/29/2017 02:34 PM CO2 30 06/02/2023 04:37 AM CO2 27 12/29/2017 02:34 PM CA 8.0 (L) 06/02/2023 04:37 AM CA 9.1 12/29/2017 02:34 PM BLOOD COUNT: WBC, Hgb, Platelets (see below for most recent value): Lab Results Component Value Date/Time WBC 7.44 06/02/2023 04:37 AM WBC 16.5 (H) 05/06/2023 04:37 PM WBC 8.31 12/29/2017 02:34 PM HGB 8.3 (L) 06/02/2023 04:37 AM HGB 6.6 (L) 05/07/2023 06:38 PM HGB 11.9 (L) 12/29/2017 02:34 PM PLT 159 06/02/2023 04:37 AM PLT 318 05/06/2023 04:37 PM PLT 239 12/29/2017 02:34 PM URINALYSIS Results for orders placed or performed during the hospital encounter of 05/26/23 URINALYSIS, REFLEX TO MICROSCOPIC Result Value Ref Range Color, Urine Light Yellow Colorless, Light Yellow, Yellow, Dark Yellow Clarity, Urine Clear Clear Glucose, Urine Negative Negative mg/dL Bilirubin, Urine Negative Negative Ketone, Urine Negative Negative mg/dL Specific [place], Urine 1.044 (H) 1.003 - 1.030 Blood, Urine Small (A) Negative pH, Urine 8.0 (H) 5.0 - 7.5 Units Protein, Urine Negative Negative mg/dL Urobilinogen, Urine Normal Normal mg/dL Nitrite, Urine Negative Negative Esterase, Urine Negative Negative RBC, Urine 30-49 (A) 0 - 2 /HPF WBC, Urine 3-5 (A) 0 - 2 /HPF Bacteria, Urine 0-25 0 - 25 /HPF IMAGING: No imaging results in the last 24 hours IMPRESSION: 82 year old male with history of laryngeal SCC status post radiation admitted for stridor seen for: Traumatic Jenkins placement BPH with urinary retention Microscopic hematuria Patient has had stable voiding while he was on doxazosin. Seems like he started having issues with urinary retention after medication was held in March. Per pharmacy staff, doxazosin immediate release could be crushed and administered. He should continue to receive medication as able. Blood around his catheter is result of traumatic Jenkins catheter placement. This will resolve on itsown with Jenkins in place. It appears that bleeding had stopped on my examination. He should keep hisFoley in until he has been restarted on doxazosin for at least 3 days He also has microscopic hematuria on urinalysis from May 26. He will need a microscopic hematuria evaluation as an outpatient RECOMMENDATIONS: - Restart [employer] doxazosin for retention. Medication could be crushed per pharmacy - Maintain jenkins for at least 3 days after restarting doxazosin - Will need OP f/u with [facility] urology after discharge for microscopic hematuri evaluation. Thank you for this consult. Please page the on-call Urology provider for any questions or concerns Patient to be discussed with Dr. Diaz. Yoseph Sotomayor MD Resident [facility] [phone] I saw and evaluated the patient 06/02. I have reviewed the trainee note and agree. Cholo Diaz MD * Lizette Santa DPT - 05/31/2023 12:25 PM ESTAssociated Order(s): ADULT PHYSICAL THERAPY CONSULT IP; ADULT PHYSICAL THERAPY CONSULT IP GENERAL EVALUATION - Physical Therapy [address] [address] Name: Farhad Dash Jr. Location: [facility] A459/A Date: 05/31/2023 Time: 5:08 PM Farhad Dash Jr. is a/an 82 year old male. Patient Status: Inpatient Insurance: Payor: MEDICARE Plan: MEDICARE A AND B Product Type: *No Product type* Payor: [employer] Plan: [employer] Product Type: *No Product type* Patient Seen: at bedside, nursing Karla cleared patient for therapy Patient Identified By: Name, ID Band and Date Diagnosis: stridor, tracheostomy (05/31/231224) Status of treatment: Evaluation completed (05/31/231224) Orders: PT evaluation and treatment;OOB (05/31/231224) Weight Bearing Status: Weight bearing as tolerated (05/31/231224) Precautions: Alarms;Falls;Trach;Safety;Oxygen;Isolation (isolation to r/o TB) (05/31/231224) Total Treatment Time--free text: 23 (05/31/231224) Past Medical History: Past Medical History: Diagnosis Date Diabetes mellitus (HCC) GERD (gastroesophageal reflux disease) History of cancer of larynx Hyperlipidemia Hypertension Myocardial infarction (HCC) Past Surgical History: Past Surgical History: Procedure Laterality Date CORONARY ARTERY BYPASS, SINGLE EGD, FLEXIBLE,W/ENDOSCOPIC US 07/30/2019 sludge, ascites / [facility] ERCP 10/22/2019 stent removed / [facility] ERCP 07/30/2019 benign biliary papillary stenosis, stent placed / [facility] INCISION OF [place], PLANNED N/A 05/28/2023 TRACHEOSTOMY PLANNED performed by Abimael De La Rosa DO at OR [facility] LARYNGOSCOPY/DILATION N/A 05/28/2023 LARYNGOSCOPY DIRECT DILATION INITIAL performed by Abimael De La Rosa DO at OR [facility] REMOVE CATARACT, INSERT LENS PROSTH Right 06/27/2020 RIGHT EXTRACAPSULAR CATARACT REMOVAL WITH INTRAOCULAR LENS performed by Mason Hassan MD at OR [facility] REMOVE CATARACT, INSERT LENS PROSTH Left 07/11/2020 LEFT EXTRACAPSULAR CATARACT REMOVAL WITH INTRAOCULAR LENS performed by Mason Hassan MD at OR [facility] TOTAL HIP REPLACEMENT & PROSTHESIS Bilateral Subjective: Patient agreeable to getting OOB when asked Social History/Disposition Lives with: Spouse (05/31/231156) Assistance available: Yes (05/31/231156) Dwelling type: Multi-story home (05/31/231156) Entry steps: 1 (05/31/231156) Inside steps: (5 steps to bedroom, 7 steps to full bathroom) (05/31/231156) Bedroom location: 1st floor (05/31/231156) Bath location: 2nd floor full bath (05/31/231156) Prior Level of Function Reported by: Patient;Family (05/31/231224) Ambulation: Ambulatory with device (05/31/231224) Ambulatory Device: Rollator (05/31/231224) Devices at home: Rollator (05/31/231224) Observations Consciousness: Alert (05/31/231224) Orientation: Oriented times 4 (05/31/231224) Psychosocial: Patient can communicate basic needs (05/31/231224) Sitting Posture: Forward head;Rounded shoulders (05/31/231224) Standing Posture: Kyphotic;Forward head;Rounded shoulders (05/31/231224) Pain: No complaints of pain Range of Motion Range of Motion: WNL (05/31/231224) Strength Assessment Strength Assessment: (4/5 BLE) (05/31/231224) P.T. Bed Mobility Supine-Sit: Minimal Assistance (05/31/231224) Transfers Sit-Stand: Minimal Assistance (x2) (05/31/231224) Stand-Sit: Minimal Assistance (05/31/231224) W/C-Bed/Mat: Minimal Assistance (05/31/231224) Ambulation: Distance ambulated (feet): 5 Assistive Device: Rolling walker Assist: Minimal Assistance Balance Sit (Static): Fair (-) (05/31/231224) Sit (Dynamic): Poor (+) (05/31/231224) Stand (Static): Poor (+) (05/31/231224) Stand (Dynamic): Poor (05/31/231224) Patient and or Family Goal(s): to return home Patient Education Review of Precautions: Safety (05/31/231224) Barriers to learning: Hearing;Speaking (05/31/231224) Method of Education: Verbalized to patient;Verbalized to family/caregiver;Demonstrated to patient (05/31/231224) Topic of Education: Safety with mobility, Goals/plan of care, and Use of assistive device Method of Education: Verbal discussion and explanation provided to patient and his spouse when she was there: verbalized understanding and or agreement of this information and demonstrated the exercise and or task Treatment Provided: Therapeutic Activities 8 minutes: bed mobility training transfer training Educated on benefits of mobility, use of RW, and safety when getting OOB with tubes and lines Evaluation Moderate Complexity 15 minutes - 51330: Patient was cooperative during treatment session. Moderate complexity evaluation performed and 1-2 personal factors or comorbidities were identifiedthat will impact plan of care, including multiple steps at home and cardiac history. Patient presents with limitations in strength, bed mobility, transfers, gait, elevations, balance, endurance, and safety, which will impact plan of care. These limitations will be addressed by the goals set for this patient. Alarm Status Patient positioned in: Chair (05/31/231224) With: Pressure pad alarm intact and functioning and call palomo in reach (05/31/231224) Goals: Demonstrate Bed Mobility with: Supine to Sit: modified independent (with device or slow) Sit to supine: modified independent (with device or slow) Demonstrate Transfers with: Sit to stand: modified independent (with device or slow) Stand to sit: modified independent (with device or slow) Bed to chair: supervision (with cues) Chair to bed: supervision (with cues) Demonstrate Ambulation: assistive device: rolling walker distance in feet: 250 level of assistance on level surface: supervision (with cues) Demonstrate Stairclimbing: Number of steps: 5-7, two rails, and Level of Assistance: supervision (with cues) Increase Strength of: 1/2 grade Increase Balance: 1 grade Time Frame: 10 Assessment: Patient is a 82 year old male admitted [facility] on 05/[facility]23 withand admitting dx as stated above and is also currently on isolation to rule out TB. The patient wasseen today for PT evaluation and currently demonstrates a decrease in functional and gait mobility requiring minimal assistance x1-2 secondary to a decrease in balance, strength, and endurance due todeconditioning, tubes and lines, new trach, and overall medical condition. At baseline, the patientlives with his in a 2 story home, 1 EFREN but 5 to bedroom and 7 to the full bathroom. The patient would therefore benefit from continued acute care services for PT at this time. Please consider post- acute care services which may include home health, usp, outpatient therapy or inpatient rehabilitation. The level of care will be determined in collaboration with patient, family/caregiver and care team members. Deficits requiring P.T. treatment needs: Safety;Mobility;Balance;Weakness;Endurance (05/31/231224) Equipment Needs: Equipment needs: No device (05/31/231224) Treatment Plan: Bed mobility training, Transfer training, Gait training, Elevation training, Strengthening exercises, and Balance activities Anticipated Frequency (on eval): 1 to 3 times per week (05/31/231224) AM PAC Score with Stairs: 15 * Miryam Mahan OTR/Tiffanie - 05/31/2023 11:57 AM ESTAssociated Order(s): ADULT OCCUPATIONAL THERAPY CONSULT IP; ADULT OCCUPATIONAL THERAPY CONSULT IP GENERAL EVALUATION - Occupational Therapy [address] [address] Name: Farhad Dash Jr. Location: [facility] A459/A Date: 05/31/2023 Time: 3:27 PM Farhad Dash Jr. is a 82 year old male. Patient Status: Inpatient Insurance: Payor: MEDICARE Plan: MEDICARE A AND B Product Type: *No Product type* Payor: [employer] Plan: [employer] Product Type: *No Product type* Patient Seen: at bedside, nursing cleared patient for therapy Patient Identified By: Name, ID Band and Date Diagnosis: stridor (05/31/231156) Status of treatment: Evaluation completed (05/31/231156) Orders: OT evaluation and treatment;OT OOB (05/31/231156) Weight Bearing Status: Weight bearing as tolerated (05/31/231156) Precautions: Alarms;Falls;Safety;Oxygen;Trach (05/31/231156) Total Treatment Time: 23 (05/31/231156) Past Medical History: Past Medical History: Diagnosis Date Diabetes mellitus (HCC) GERD (gastroesophageal reflux disease) History of cancer of larynx Hyperlipidemia Hypertension Myocardial infarction (HCC) Past Surgical History: Past Surgical History: Procedure Laterality Date CORONARY ARTERY BYPASS, SINGLE EGD, FLEXIBLE,W/ENDOSCOPIC US 07/30/2019 sludge, ascites / [facility] ERCP 10/22/2019 stent removed / [facility] ERCP 07/30/2019 benign biliary papillary stenosis, stent placed / [facility] INCISION OF [place], PLANNED N/A 05/28/2023 TRACHEOSTOMY PLANNED performed by Abimael De La Rosa DO at [facility] LARYNGOSCOPY/DILATION N/A 05/28/2023 LARYNGOSCOPY DIRECT DILATION INITIAL performed by Abimael De La Rosa DO at [facility] REMOVE CATARACT, INSERT LENS PROSTH Right 06/27/2020 RIGHT EXTRACAPSULAR CATARACT REMOVAL WITH INTRAOCULAR LENS performed by Mason Hassan MD at [facility] REMOVE CATARACT, INSERT LENS PROSTH Left 07/11/2020 LEFT EXTRACAPSULAR CATARACT REMOVAL WITH INTRAOCULAR LENS performed by Mason Hassan MD at [facility] TOTAL HIP REPLACEMENT & PROSTHESIS Bilateral Social History/Disposition Lives with: Spouse (05/31/231156) Assistance available: Yes (05/31/231156) Dwelling type: Multi-story home (05/31/231156) Entry steps: 1 (05/31/231156) Inside steps: (5 steps to bedroom, 7 steps to full bathroom) (05/31/231156) Bedroom location: 1st floor (05/31/231156) Bath location: 2nd floor full bath (05/31/231156) Prior Level of Function Reported by: Patient (05/31/231156) Ambulation: Ambulatory with device (05/31/231156) Ambulatory Device: Rollator (05/31/231156) Grooming: Independent (05/31/231156) Bathing: Assistance (05/31/231156) Dressing: Assistance (05/31/231156) Feeding: Independent (05/31/231156) Toileting: Assistance (05/31/231156) Meal Prep: Assistance (05/31/231156) Homemaking: Assistance (05/31/231156) Shopping: Assistance (05/31/231156) Observations Consciousness: Alert (05/31/231156) Orientation: Oriented times 4 (05/31/231156) Cognitive Limitations: Processing (05/31/231156) Psychosocial: Patient can communicate basic needs (05/31/231156) Sitting posture: Forward head;Rounded shoulders (05/31/231156) Standing posture: Forward head;Rounded shoulders (05/31/231156) Safety awareness: Needs cueing supervision. (05/31/231156) Other Findings Endurance: Functional activity;Fair (05/31/231156) Coordination: Intact (05/31/231156) Current Functional Status: Bilateral Upper Extremity Range of Motion: WFL (05/31/231156) Strength Assessment: (3+/5) (05/31/231156) Self Care Able to provide self care: Yes (05/31/231156) Grooming: Supervision (Please comment) (05/31/231156) Dressing Upper Body: Minimal Assistance (gown) (05/31/231156) Lower Body: Maximal Assistance (socks) (05/31/231156) Functional Ambulation Assistive Device: Rolling walker (05/31/231156) Distance in feet:: 3 (05/31/231156) Level of Assistance: Minimal Assistance (05/31/231156) Bed Mobility Supine-Sit: Minimal Assistance (05/31/231156) OT Transfers Sit-Stand: Minimal Assistance (x2) (05/31/231156) Stand-Sit: Minimal Assistance (05/31/231156) Bed-Chair: Minimal Assistance (05/31/231156) Balance Sit (Static): Fair (05/31/231156) Sit (Dynamic): Fair (05/31/231156) Stand (Static): Poor (+) (05/31/231156) Stand (Dynamic): Poor (+) (05/31/231156) Alarm Status Patient positioned in: Chair (05/31/231156) With: Pressure pad alarm intact and functioning and call palomo in reach (05/31/231156) Patient and Family Goals: to get well Patient Education Education Topic: Role of OT;Plan of care goals (05/31/231156) Review of Precautions: Safety;Fall (05/31/231156) Barriers to learning: Medical status (05/31/231156) Preferred learning method: Combination (05/31/231156) Treatment Provided: Evaluation Moderate Complexity 23 minutes - 14830: Patient was cooperative during treatment session. Moderate complexity evaluation performed and 3-5 activity limitations were identified, including ADL deficit, functional mobility deficit, bed mobility deficit, decreased strength, decreased endurance, and impaired balance. Minimal or moderate modification of the functional task was necessary to complete the evaluation. Deficits Requiring O.T. Treatment: Deficits requiring O.T. treatment needs: Balance;Endurance;ADL/self-care;Functional mobility;Safety;Upper extremity strength;Weakness (05/31/231156) Goal Time Frame: 10 visits Assessment: Pt is a 82 year old male admitted to [facility] with a dx of stridor. Pt is now s/p direct laryngoscopy, esophagoscopy and biopsy; tracheotomy. Prior to admission, pt lived with spouse where he needed assistance with some ADLs and completed mobility with a rollator. Pt supine in bed upon therapist arrival. Pt completed bed mobility with Min A. Pt completed UE dressing with Min A and LE dressing with Max A. Pt sat EOB ~8 minutes in order to increase endurance and postural strengthening for participate in functional activities. Pt completed sit to stand transfer from EOB with Min Ax2. Pt completed mobility to bedside chair using RW with Min A. Pt would benefit from skilled OT services inorder to increase independence and facilitate a safe transition to next level of care. Please consider post-acute care services which may include home health, usp, outpatient therapy or inpatient rehabilitation. The level of care will be determined in collaboration with patient, family/caregiver and care team members. Goals: BUE Strength/ROM Increase BUE strength to at least one muscle grade. ADLs Increase UE dressing to supervision. Increase UE bathing to supervision. Increase LE dressing to Min A. Increase LE bathing to Min A. Increase toileting to Min A Increase grooming and basic hygiene tasks while in stance at sink with supervision. Bed Mobility/Functional Mobility Increase bed mobility to supervision. Increase functional mobility using the least restrictive device to supervision. Functional Transfers Increase functional sit to stand transfers during ADLs to supervision. Increase transfers to toilet to supervision. Increase transfers from bed to chair with supervision. Balance Increase sitting balance at EOB to fair+ during ADLs. Increase standing balance to fair during ADLs. Treatment Plan: Safety, Bed mobility training, Functional Ambulation, Transfer training, Upper extremity strengthening, Balance activities, ADL training , and Endurance Anticipated Frequency (on eval): 1 to 3 times per week (05/31/231156) AM-PAC Help From Another Person Eating Meals: A little (05/31/231156) Help From Another Person Taking Care of Personal Grooming: A little (05/31/231156) Help From Another Person To Put On/Take Off Upper Body Clothing: A little (05/31/231156) Help From Another Person To Put On/Take Off Lower Body Clothing: A lot (05/31/231156) Help From Another Person Toileting: A lot (05/31/231156) Help From Another Person Bathing: A lot (05/31/231156) OT AM-PAC Score: 15 (05/31/231156) OT AM-PAC t-Scale Score: 34.69 (05/31/231156) A portion of this AM-PAC assessment not scored based on functional assessment, rather clinical decsion making utilized based on current findings and/or prior level of function. Please refer to futureAM-PAC calculations of functional ability as they become available. 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 Difficult airway for intubation T88.4XXA Laryngeal mass J38.7 Stridor R06.1 Severe protein-energy malnutrition (HCC) E43 Abnormal gait R26.9 Benign essential hypertension I10 Carotid stenosis I65.29 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 I25.10 Dyslipidemia, goal LDL below 70 E78.5 Fatigue R53.83 Gastroesophageal reflux disease K21.9 Gynecomastia N62 Hearing loss H91.90 Hypothyroidism E03.9 Inguinal hernia K40.90 Osteoarthrosis M19.90 Osteoporosis of multiple sites without pathological fracture M81.0 Paroxysmal atrial fibrillation (HCC) I48.0 Paroxysmal ventricular tachycardia (HCC) I47.29 Postoperative urinary retention N99.89, R33.8 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 Ordered meds to be given in the future also display. Current Facility-Administered Medications Medication Dose Route Frequency Provider Nutren 1.5 liquid 65 mL/hr Tube feed Continuous Warner Michael MD [Held by provider] tamsulosin (Flomax) cap 0.4 mg 0.4 mg Oral Daily(AM) Karan Chew PA-C Acetaminophen (Tylenol) 160 MG/5ML oral liquid 975 mg 975 mg G Tube Q6H PRN Iseral Anderson, DO Enoxaparin (Lovenox) inj 40 mg 40 mg Subcutaneous Daily(AM) Isreal Anderson, DO omeprazole (PriLOSEC) oral susp 20 mg 20 mg G Tube Daily(AM) Isreal Anderson, DO ampicillin-sulbactam in NSS (Unasyn) ivpb 3 g 3 g IV Piggyback Q6H Warner Michael MD dextrose 50 % inj 25 mL 25 mL IV Push PRN Warner Michael MD dextrose 50 % inj 50 mL 50 mL IV Push PRN Warner Michael MD doxazosin (Cardura) tab 2 mg 2 mg G Tube Daily(AM) Warner Michael MD glucagon (Glucagen) inj 1 mg 1 mg Intramuscular PRN Warner Michael MD Glucose (Glutose 15) 40 % gel 15 g of glucose 15 g of glucose Oral PRN Warner Michael MD Glucose (Glutose 15) 40 % gel 30 g of glucose 30 g of glucose Oral PRN Warner Michael MD glucose chew tab 16 g 16 g Oral PRN Warner Michael MD insulin aspart (NovoLOG) inj Subcutaneous Q6H Warner Michael MD chlorHEXIDINE (Periogard) 0.12 % oral rinse 15 mL 15 mL Oral mucosal membrane BID (0800,1999) Warner Michael MD Docusate Sodium (Colace) oral liquid 100 mg 100 mg G Tube BID(AM/PM) Warner Michael MD levothyroxine (Levoxyl) tab 75 mcg 75 mcg G Tube Daily 0630 Warner Michael MD Oral Hygiene: Mouth Swab with dentifrice Oral Q4H Limited (00;04;12;16) Warner Michael MD oxygen GAS Inhalation Oxygen Warner Michael MD racepinephrine 2.25 % inhalation solution 5.625 mg 0.25 mL Nebulizer Q1H PRN Cholo Causey DO rosuvastatin (Crestor) tab 5 mg 5 mg G Tube Daily(AM) Warner Michael MD senna (Senokot) 1 Tablet 1 Tablet G Tube Daily(AM) Warner Michael MD sodium chloride 0.9 % flush peripheral norman 3 mL 3 mL IV Push Q8H Warner Michael MD Allergies: Sulfa [sulfa antibiotics] Pharmacy has reviewed patient's current medication orders and has timed medication administration times to fall between the hours of 0600 and 2200 where appropriate. No medications needed to be adjusted at this time. Please contact pharmacy if there are any other needs. * Nelli Juárez, [facility] - 05/30/2023 10:30 AM ESTAssociated Order(s): ADULT SPEECH THERAPY CONSULT IP (ACUTE CARE REHAB) CLINICAL BEDSIDE SWALLOW EVALUATION - Speech-Language Pathology [address] [address] Name: Farhad Dash Jr. 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 Recently admitted for COVID and pseudomonas UTI at [facility]. He has had persistent dysphonia and dysphagia and has G tube for enteral nutrition. Denies odynophagia. No CP. Has mild dyspnea. " Past Medical History: Diagnosis Date Diabetes mellitus (HCC) GERD (gastroesophageal reflux disease) History of cancer of larynx Hyperlipidemia Hypertension Myocardial infarction (HCC) Past Surgical History: Procedure Laterality Date CORONARY ARTERY BYPASS, SINGLE EGD, FLEXIBLE,W/ENDOSCOPIC US 07/30/2019 sludge, ascites / [facility] ERCP 10/22/2019 stent removed / [facility] ERCP 07/30/2019 benign biliary papillary stenosis, stent placed / [facility] INCISION OF [place], PLANNED N/A 05/28/2023 TRACHEOSTOMY PLANNED performed by Abimael De La Rosa DO at [facility] LARYNGOSCOPY/DILATION N/A 05/28/2023 LARYNGOSCOPY DIRECT DILATION INITIAL performed by Abimael De La Rosa DO at [facility] REMOVE CATARACT, INSERT LENS PROSTH Right 06/27/2020 RIGHT EXTRACAPSULAR CATARACT REMOVAL WITH INTRAOCULAR LENS performed by Mason Hassan MD at [facility] REMOVE CATARACT, INSERT LENS PROSTH Left 07/11/2020 LEFT EXTRACAPSULAR CATARACT REMOVAL WITH INTRAOCULAR LENS performed by Mason Hassan MD at [facility] TOTAL HIP REPLACEMENT & PROSTHESIS Bilateral IMAGING: CXR 05/28/22: "IMPRESSION 1. Tracheostomy tube appears well position. 2. Patchy bilateral airspace opacities, better evidenced on the recent CT, could represent multifocal infectious process." CT NECK 05/26/23: "IMPRESSION 1. Mucosal irregularity with soft tissue thickening and enhancement involving the right piriform sinus and right arytenoepiglottic fold. Findings are nonspecific, and correlation with laryngoscopy findings is recommended. Asymmetric medial position of the right arytenoid cartilage may be secondary to vocal cord dysfunction. 2. 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 3. No suspicious cervical lymphadenopathy is identified. 4. Advanced atherosclerosis with severe stenosis of the right internal carotid artery." Current Diet/Dysphagia History: NPO -Pt w/ h/o dysphagia given h/o prior laryngeal CA and radiation tx. MBSS completed 08/2022 at outside facility w/the following impressions: "1. Moderate pharyngeal dysphagia suspected to be due to late effects of radiation treatment for laryngeal cancer. 2. Oral phase of the swallow was judged to be functional/WNL. 3. Pharyngeal phase of the swallow is remarkable for significantly reduced laryngeal elevation, stripping wave, and tongue base retraction. PES function is impaired with reduced duration of distension and atypical anatomy/prominence appearing to impact bolus flow and clearance. These impairments result in laryngeal closure which appears to be delayed and reduced, fairly consistent shallow penetration during the swallow, and incomplete pharyngeal clearance. Due to incomplete pharyngeal clearance, there was one instance of gross aspiration. Aspiration of liquids was eliminated with bolus size modification (i.e. 10cc sips). There was intermittent trace aspiration of laryngeal vestibule residue. A cued cough appeared to be beneficial for reducing laryngeal vestibule residue in order to prevent later aspiration. The Pt spontaneously uses multiple swallows to clear residue. Sensory response was not present for trace aspiration, however was present when gross aspiration occurred. 4. I suspect that the episode of coughing up chicken could have been from PES residue. There is an atypical function/? anatomy in the PES with consistent residue in the upper PES. Liquid wash beneficial. 5. It appears appropriate to continue current diet with compensatory strategies and aspiration precautions recommended. 6. Given his Hx and the suspected etiology of impairments, I do not believe rehab of the swallow is possible. I do believe that there should be short-term outpatient follow-up in order to develop and train him on a home maintenance program in order to prevent further decline/trial for some rehab and to reduce risk for aspiration and associated compromise. " -Pt reports consuming a regular diet at baseline since then. He did endorse frequent PNA (more thanx1 per year). Cognitive-Communication: Pt remained awake and alert. Pt communicated via mouthing words and gestures d/t aphonia given trach placement. Responses were intermittently absent. He followed commands appropriately. Barriers to Learning: Medical Status Hearing Acuity: Deferred Best Learning Method: Auditory Pain: No complaints of pain ORAL MECHANISM EXAM: Facial Symmetry Within functional limits Labial Function Within functional limits Lingual Function Within functional limits Velar Function DNT Dentition: Upper and Lower PROTECTIVE MECHANISMS: Volitional Swallow DNT Volitional Throat Clearing DNT Volitional Cough DNT Vocal Quality Congested, weak/breathy quality x1 Tracheostomy Tube: Present Shiley Flex [id number], cuff deflated Ventilator Status: Not Applicable Pt is currently on 5 L/min @ 28% via trach mask SWALLOWING FUNCTION: ORAL PREPARATION PHASE: Ice Chips (IDDSI Level 0): WFL Thin Liquid (IDDSI Level 0): WFL ORAL PHASE: Ice Chips (IDDSI Level 0): WFL Thin Liquid (IDDSI Level 0): WFL PHARYNGEAL PHASE Ice Chips (IDDSI Level 0): Cough Thin Liquid (IDDSI Level 0): Cough RECOMMENDATIONS/PLAN: Videofluoroscopy: Indicated pending completion of airborne isolation Diet Level: NPO Presentation of Medication: Non-oral medications ANTICIPATED FREQUENCY (ON EVAL): 1-3 times per week DIAGNOSIS/IMPRESSIONS: Diagnosis/Impressions: Oral phase WFL. Pharyngeal phase of the swallow inferred. Suspect acute on chronic pharyngeal phase dysphagia in the setting of dx, h/o laryngeal CA s/p radiation, pt- reported frequent PNA, new trach placement, and sx at bedside. Pt demonstrated strong cough, productive for scant, thick tracheal secretions w/trials presented. Given hx and dx, pt would benefit from instrumental assessment of the swallow prior to diet initiation, pending completion of airborne isolation. Recommend maintain NPO Non-oral medications Frequent oral care for comfort and hygiene Following thorough oral care, allow for single tsps of thin water for comfort, to be provided only as pt is fully awake and alert Rehab Potential: Pending results of MBSS TREATMENT PLAN: Swallowing Treatment: Indicated Treatment Goals: Patient will consume least restricitive diet without signs/symptoms of aspiration Additional Recommendations: N/A The above information was discussed with the patient/family. Yes The patient/family was in Agreement * Lizeth Moran, METAL TILE SETTER - 05/28/2023 2:18 PM ESTAssociated Order(s): CARE MANAGEMENT CONSULT IP CARE MANAGEMENT - ADULT INITIAL SCREENING [address] [address] Name: Farhad Dash Jr. Location[facility] Date: 05/28/2023 Time: 2:18 PM Discussed patient with the interdisciplinary care team. This Manpower Development Specialist Manager performed a chart review and spoke with spouse via phone to complete admission screen and assessed needs for transition planning. The care transitions manager role and services were explained and emotional support was provided. Chief Complaint: Short of Breath Prior Living Arrangements What was your living situation prior to admission/observation?: At a Intermediate (05/28/231403) Living Quarters: Alf Facility (SNF for short term rehab, with spouse at home prior) (05/28/231403) History of falling: No (05/27/231999) Prior Level of Functioning Describe the patient's ability prior to admission/observation to perform ADLs: Completely dependent(05/28/231403) Primary caregiver/facility (name/relationship): [facility] (05/28/231403) Describe the patient's mobility status prior to admission: Patient requires assistance with ambulation;Patient unable to assist with mobility (05/28/231403) Patient uses assistive device: Yes (05/28/231403) If yes, choose:: Wheelchair (05/28/231403) Caregiver Information Patient Contacts Name Relation Home Work Mobile Emmie Dash Spouse [phone] [place] Adult Child [phone] Risk Stratification/Psychosocial/Care Gaps Risk Stratification Psycho Social / Medical Concerns Identified: Adjustment to illness/injury;Multiple Comorbidities (05/28/231403) [facility] to [facility] patients to [facility] care resources: No (05/28/231403) OBRA or OPTIONS needed for placement: No (05/28/231403) Readmission Risk Score: 15.4 (05/28/23 1200) AM-PAC Score With Stairs : 17 (05/27/23 0800) Prior to Admission Services Services Prior to Admission PROFESSIONAL DRIVER Services (Services received within the last 30 days with exception, Psych within last two years): Alf (05/28/231403) List All Provider/Service Name: [facility] (05/28/231403) Agency contacted: Yes (05/28/231403) Spoke with - Comment: LVM in admissions, [facility] opened (05/28/231403) Alf Facility Bed Hold Confirmed: No (05/28/231403) [place] Dept[employer] of Aging (PDA) Waiver Program: N/A (05/28/231403) PROFESSIONAL DRIVER Transportation (Services received within the last 30 days): Facility Transportation;Medical Transportation (05/28/231403) Outpatient Manpower Development Specialist Manager: No care steamer blocker to display Patient/Family Expectations: PROFESSIONAL DRIVER, pt was at [facility] for short term Rehab. Per spouse,has been there since 05/15/23. Was requiring douglas lift and w/c most recently. Spouse would like ptto return if they are able to accommodate his trach. SW called and LVM with admissions. [facility] opened. For further screening information, please refer to the Care Management flow document. * Vaishali Doll RN - 05/27/2023 10:43 AM ESTAssociated Order(s): WOUND/OSTOMY CONSULT IP; WOUND/OSTOMY CONSULT IP Wound / Ostomy Nurse Consult Note Recommendations: Foam dressing to sacrum , change Q 3 days and prn with soiling/rolling up, can be lifted and re-adhered for routine skin assessments -If unable to maintain foam dressing due to incontinence, moisture barrier cream to sacrum Q shift and prn with cleansing -Avoid simultaneous use of moisture barrier cream and foam dressing to prevent maceration. Turn and reposition Q 2 hours Limit time sitting to < 2 hours at a time; utilize waffle/bubble cushion while sitting Heel elevation off mattress at all times -utilize offloading heel boots as needed Call with changes in wound appearance or new concerns. Wound Ostomy asked to see this 82 year old patient for suspected pressure injury to sacrum; admitted from facility (SNF) via ED for stridor. PMH significant for Past Medical History: Diagnosis Date Diabetes mellitus (HCC) GERD (gastroesophageal reflux disease) History of cancer of larynx Hyperlipidemia Hypertension Myocardial infarction (HCC) Wound history/prehospital care: Farhad states wound has been present for about 3 months. Current Skin Wound Care: low air loss/alternating air mattress, moisture wicking pads, heel elevation, turn and reposition, and pillows Wound Assessment: Awake, alert, on [place] low air loss mattress, heels elevated via pillows. Denies sacral pain. Educated patient on importance of frequent repositioning and offloading of bony prominences, including elbows, heels, sacrum/buttocks, hips, in order to prevent pressure related skin injury, verbalized understanding. Alteration in Skin Integrity Pressure Injury Coccyx/Sacrum (Active) Incision Dressing Open to air 05/26/23 2000 Wound Dressings Open to air 05/27/23 1000 Incision/Wound Treatment Zinc oxide-based moisture barrier cream 05/27/23 0800 Measurement (in cm) (LxWxD) Wound Only 0.75x0.5x0.2 05/27/23 1000 Wound bed appearance Angostura;Yellow 05/27/23 1000 Pressure Injury Stage 2 (present on admission) 05/27/23 1000 Drainage none 05/27/23 1000 Odor (after cleansing wound) No 05/27/23 1000 Kristin-Wound (Surrounding Skin) Intact 05/27/23 1000 Number of days: 1 Disclaimer: Flowsheets are auto-populated from the most recent entries in the patient's EHR. All others are to be interpreted as last entries by other unassociated staff and may not be representativeof the clinician's overall evaluation. (Flowsheet entered at 1000) Specialty Bed: [place] * Lisa Carrillo RDN - 05/27/2023 9:41 AM EST CLINICAL NUTRITION CONSULT/PROGRESS NOTE [address] [address] Name: Farhad Dash Jr. Location: [facility] [id number] Date: 05/27/2023 Time: 9:41 AM How patient was identified (select 2): Medical record number and date Discussed in interdisciplinary rounds: No Farhad Dash Jr. is a 82 year old male being seen for enteral nutrition and high risk diagnosis Primary Diagnosis: for evaluation of Short of Breath. Other pertinent information: Patient is seen and examined at bedside. He has face tent and able to answer few of this medical writer's questions. Reports that He has been on tube feeds ~ over a year and tolerating well. Per paper chart review, he was on Jevity 1.5. He doesn't remember name of the formula. Denies N/V and abdominal discomfort. He doesn't remember his UBW. Currently NPO and monitor for plan, and recommend to start tube feeds, when medically feasible. NUTRITION ASSESSMENT: Past medical/surgical history and medications reviewed. Food/Nutrition-Related History Nutrition Support: Diet: NPO Previously followed diet: Jevity 1.5 at 55 ml/hr over 22 hours ( 1210 ml,1815 kcal, 77 gm protein and 919.6 ml free water ) per paper chart Food Allergies/Intolerances: None Adult Energy Intake: No significant decrease - on Enteral Nutrition Pertinent medications/vitamins/minerals/supplements: Isolyte, colace, novolog, levoxyl, pantoprazole, senna, sodium chloride, Pepcid, novolog, Pertinent Biochemical Data: There are no biochemical abnormalities requiring a change in the nutrition plan of care. Nutrition-Focused Physical Findings: Appearance: Thin Respiratory support: Supplemental O2 Delivery: Face Tent Nasal/Oral: Swallow function, compromised or painful Digestive: No issues identified Cognition: Awake, alert Skin: Sacrum- stage 2 - 0.75x0.5x0.2 cm Enteral access: G/J Tube 04/17/23 Nutrition Focused Physical Exam: NFPE completed on 05/27/23 Subcutaneous Fat Loss: Orbital fat pads: Severe Buccal fat: Unable to assess Tricep: Severe Muscle Loss: Temples: Moderate Clavicles: Severe Shoulders: Severe Interosseous: Moderate Quadriceps: Severe Anthropometrics Measurements Height: 177.8 cm (5' 10") (05/27/23799) Admission weight: 69.2 kg (152 lb 8.9 oz) Weight: 69.1 kg (152 lb 5.4 oz) (05/27/23799) BMI: 21.86 (05/27/23799) Usual Body Weight: 74.8 kg (03/12/23) [place] weight: 68.6 kg [place] Weight Based on BMI: 21.7 Interpretation of Weight Change Prior to Admission: 7.5% weight loss in 3 months (Moderate) ~ 7.4% x 3 months Weight Changes Since Admission: stable Nutrition Prescription: Energy needs: 25-30 Kcal/kg Kcal/day: 1730 - 2076 Based on admission weight - 69.2 kg Protein needs: 1.25-1.5 gm/kg Protein: 86 - 103 gm Based on admission weight 69.2 kg Fluid needs: 25 ml/kg Fluid: 1730 ml/day - 69.2 kg Based on admission weight Malnutrition: Malnutrition Present: Yes (05/27/231134) Adult Malnutrition Classification: Severe (05/27/231134) Malnutrition Characteristics: Fat loss;Muscle loss;Weight loss (05/27/231134) NUTRITION DIAGNOSIS: Malnutrition severe related to chronic illness as evidenced by 7.5% weight loss x 3 months, severe fat loss, and severe muscle loss. 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 Goals: Initiation of enteral nutrition within 24-48 hours. NUTRITION INTERVENTION/PLAN: Continue to monitor nutrition support Clinical Nutrition Recommendations: Enteral Nutrition: When feasible, Recommend Nutren 1.5 to the goal rate of 65 ml/hr over 21 hours via G/J to provide 1365 ml , 2047 kcal, 92.8 gm protein and 1037 ml free water When pt establishes tolerance, may transition to cyclic feeds: Nutren 1.5 to the goal rate of 95 ml/hr over 14 hours to provide 1995 kcal, 90.4 gm protein and 1010 ml free water. levothyroxine (tube feeds, if required, need to be held 1 hour before and after medication administration) NUTRITION MONITORING AND EVALUATION: NPO status/diet advancement and tolerance Lab values warranting change with MNT Weight for trends Plan follow-up: Will follow and adjust nutrition plan of care as medical condition requires. Please contact for change(s) in patient condition requiring earlier intervention. Lisa Carrillo MS, RDN, LDN Clinical Dietitian [facility] [place] text * IsantiAbimael oshea, DO - 05/26/2023 2:48 PM ESTAssociated Order(s): OTOLARYNGOLOGY CONSULT IP Images from the original note were not included. Addendum: Patient examined with Dr. De La Rosa. Procedure: Flexible nasopharyngolaryngoscopy was performed. The nose was first topically decongested with topical oxymetazoline 0.05% spray and topically anesthetized with topical Lidocaine 4% spray.Fiberoptic examination revealed bilateral vocal fold immobility with approximately 3 mm glottic gap. There were copious thick, purulent secretions on the right vocal fold. No obvious lesion. No post cricoid or pyriform sinus lesions. The patient tolerated the procedure well. Patient should refrain from eating or drinking for 30-45 minutes due to anesthesia of the pharynx and possible interferencewith swallowing. Impression: History of laryngeal cancer s/p radiation in 2005. He has had progressive dysphonia, dysphagia, and several bouts of aspiration pneumonia. Had G tube. Presents for acute worsening of dyspnea. Appears to have acute pneumonia. No obvious mass on CT neck. His history and exam are suggestive of nonfunctional larynx as a late sequela of radiation. Plan: - Tracheostomy and DL/biopsy tomorrow - Very low threshold to intubate patient if there are any signs of respiratory distress - [place] scope and fiberoptic scope available in the case of potential intubation - Patient should be intubatable from above w/ a 5.5 or 6.0 ETT based on scope exam - Trach kit at bedside - Humidified face tent - Hel[place] to the bedside - High-dose IV steroids scheduled: Decadron 8mg, q8hrs - Keep NPO - Reflux precautions and reflux medication (Omeprazole 40mg IV) - Head of bed elevated >30 degrees - Racemic epinephrine PRN - Antibiotics per ICU - If there is any respiratory distress or concerning signs, please contact ENT immediately for re-evaluation Ebenezer W. Lesh, MD Otolaryngology - Head & Neck Surgery Resident 05/26/2023 5:26 PM CONSULT - Otolaryngology [facility] [place]-[address] [id number] Name: Farhad Dash Jr. Location: Date: 05/26/2023 Time: 2:48 PM REQUESTING SERVICE: Emergency Medicine REASON FOR CONSULT: Stridor HISTORY OF PRESENT ILLNESS: Farhad is a 82 year old male with PMH of laryngeal cancer s/p radiation 2005, diabetes, GERD, hld, htn, [place] who presented to [facility] ED for worsening stridor. Patient has been seen by Dr. San [facility] who recommended evaluation by Dr. De La Rosa [facility]NT. Patient was first seen by Dr. San in 10/2021 for possible laryngeal lesion in the setting of previous laryngeal cancer treated with primary radiation in 2005. At the time, he was noted to have left vocal cord paresis but no lesion. He had one episode of bright red bleeding in the mouth around that time but larynx was ruled out as the source. He continued to follow with Dr. San for dysphonia and dysphagia. Patient underwent EGD around 07/02/22 and GI noted at possible laryngeal mass. He was sent back to Dr. San's office who recommended PET imaging for possible recurrence. PET imaging on 10/30/22 that showed avidity in the right arytenoid. He was taken for DL biopsy 11/07/22 that showed marked chronic and moderate acute inflammation of the right arytenoid and cartilage with degenerative changes, no malignancy. He has persistent dysphonia and dysphagia with multiple hospital admission for aspiration pneumonia and now has a G tube for hisnutrition. He has been at rehab after recent COVID hospitalization. He was seen in Dr. San's office on 05/23/23 for follow up and was noted to have significant airway narrowing with exudative abnormal appearing right arytenoid. Bilateral vocal cords immobile with inspiratory and expiratory stridorduring his clinic visit. Dr. San recommended trach and patient refused. She placed urgent referral for Dr. De La Rosa and due to worsening stridor at rehab, patient was sent to [facility] ED today for ENT evaluation. Patient denies throat pain, ear pain or any neck masses. He reports his voice has been severely hoarse for the past 3-4 months. PET 10/30/22: 1. There is asymmetric intense FDG uptake identified at the level of the right arytenoid. Residual or recurrent malignancy cannot be entirely excluded. 2. There is no evidence of abnormal FDG uptake seen within the true vocal cords and there is no evidence of pathologic cervical adenopathy identified. 3. There is no evidence suspicious for distant metastatic disease. [facility] - 11/08/2022 11:18 AM EDT FINAL DIAGNOSIS: LARYNX, ARYTENOID, RIGHT, BIOPSY: - RESPIRATORY AND SQUAMOUS MUCOSA WITH MARKED CHRONIC, MODERATE ACUTE INFLAMMATION. - CARTILAGE WITH DEGENERATIVE CHANGES. - NO DYSPLASIA OR MALIGNANCY IDENTIFIED (SEE COMMENT). HOSPITAL PROBLEM LIST: Active Problems: * No active hospital problems. * Resolved Problems: * No resolved hospital problems. 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, stent placed / [facility] REMOVE CATARACT, INSERT LENS PROSTH Right 06/27/2020 RIGHT EXTRACAPSULAR CATARACT REMOVAL WITH INTRAOCULAR LENS performed by Mason Hassan MD at [facility] REMOVE CATARACT, INSERT LENS PROSTH Left 07/11/2020 LEFT EXTRACAPSULAR CATARACT REMOVAL WITH INTRAOCULAR LENS performed by Mason Hassan MD at [facility] TOTAL HIP REPLACEMENT & PROSTHESIS Bilateral FAMILY HISTORY: Family History Problem Relation Age of Onset Hypertension Father SOCIAL HISTORY: Social History Tobacco Use Smoking status: Former Packs/day: 1.00 Years: 30.00 Additional pack years: 0.00 Total pack years: 30.00 Types: Cigarettes Quit date: 1970 Years since quittin.0 Smokeless tobacco: Former Types: Chew Quit date: 2004 Substance Use Topics Alcohol use: Not Currently Drug use: Never No employer currently on file ALLERGIES: Sulfa [sulfa antibiotics] REVIEW OF SYSTEMS: Negative for constitutional, eyes, cardiac, pulmonary, hepatic, renal, digestive, hematologic, epileptic, syncopal, musculo-skeletal, mental health, integumentary, hypertensive, lipid, arthritic, diabetic, thyroid or neurologic disorders (except as listed in the PMH and Problem List). PHYSICAL EXAMINATION: General: This is a male who appears his stated age, comfortable, and appropriately verbally conversant with significant hoarseness. Currently not in acute distress. Expiratory stridor. Face: No cutaneous masses or lesions. Facial movement was symmetric without weakness. There was no sinus tenderness elicited. The parotid and submandibular glands were normal to palpation. Eyes: pupils are equal round and reactive to light, extraocular muscles are intact, vision grossly intact Nose: No external nasal deformity. septum is midline, turbinates are without abnormality, no masses, no polyps, no mucopus. Oral Cavity: mucosa is moist without visualized or palpable lesion, tongue exhibits normal mobility. Oropharynx: tonsils are nonenlarged bilaterally. Neck: no abnormal adenopathy, no masses, no thyromegaly. PROCEDURE: Fiberoptic examination of the larynx was performed. The nose was first topically decongested with topical oxymetazoline 0.05% spray and topically anesthetized with topical Lidocaine 4% spray. Fiberoptic examination exudative, erythematous, irregular right arytenoid vs possible mass with copious dried secretions. Left arytenoid edema with erythema. Vocal cord bilaterally limited mobility, narrow airway would be a difficult intubation. Dried thick secretions around laryngeal structures including pyriform sinuses and epiglottis, limits exam of those structures. The patient tolerated the procedure well. Patient should refrain from eating or drinking for 30-45 minutes due to anesthesia of the pharynx and possible interference with swallowing. This was done by CANDIDA Chou and reviewed byDr. Abimael De La Rosa. 05/26/23: IMAGING: Pending CT neck and chest with IV contrast IMPRESSION: Farhad is a 82 year old male with PMH of laryngeal cancer s/p radiation 2006, diabetes, GERD, hld, htn, [place] who presented to [facility] ED for worsening stridor with possible lesion of the right arytenoid vs radionecrosis changes to the larynx with severely limited bilateral vocal cord mobility. RECOMMENDATION: - Recommend admission to ICU for close airway monitoring - Very low threshold to intubate patient if there are any signs of respiratory distress, oral intubation will be challenging given fiberoptic exam. - [place] scope and fiberoptic scope available in the case of potential intubation - Patient should be intubatable from above w/ a 5.5 or 6.0 ETT based on scope exam vs surgical airway by ENT. - Trach kit at bedside - Humidified face tent - Heliox to the bedside - High-dose IV steroids scheduled: Decadron 8mg, q8hrs - Keep NPO - CT neck and chest with contrast stat - Reflux precautions and reflux medication (Omeprazole 40mg IV) - Head of bed elevated >30 degrees - Racemic epinephrine PRN - ENT to follow with serial scope exams - If there is any respiratory distress or concerning signs, please contact ENT immediately for re-evaluation - remainder of care per primary team Patient discussed with Dr. Abimael De La Rosa. CANDIDA Brody Otolaryngology - Head and Neck Surgery 05/26/2023 I performed a history and physical examination of the patient. I have discussed the patient's management with CANDIDA Penny. Please refer to the Audie note for the documented findings and plan of care. Abimael De La Rosa DO FACS Director, Head and Neck Surgery, Dept of Otolaryngology/Head and Neck Surgery Head and Neck Surgical Oncology Microvascular Reconstructive Surgery Transoral Robotic Surgery documented in this encounter Nursing Notes * Nova Reddy RN - 06/06/2023 2:42 PM EST Dual Licensed Skin Assessment completed by nova waite rn and brina pelaez. The patient is/has a N/A Skin Breakdown (includes non blanchable erythema): Yes. Wound Type: Suspected pressure injury at bony prominence, location sacrum and upper back Wound Ostomy Nurse Notified: No - care per ordered treatment Nursing interventions: foam dressing, heels elevated, turn and repo Q2, barrirer cream * Mason Snow RN - 06/05/2023 11:32 PM EST 2312: [place] abnormal respirations when walking past room to do hourly rounds. Found pt to have trach dislodged. Emergently contacted Stephany López PA-c, respiratory therapy, and ENT to replace dislodged trach.Vital signs remained stable throughout event * Shannan Malave RN - 05/29/2023 10:56 PM EST Dual Licensed Skin Assessment completed by Shannan Napier RN and Gris Cancino RN. The patient is/has a N/A Skin Breakdown (includes non blanchable erythema): Yes. Wound Type: Suspected pressure injury at bony prominence, location right buttock Wound Ostomy Nurse Notified: Yes - notified via wound care protocol - previously aware Nursing interventions: turn and reposition, skin care, application of skin protecting cream and dressings Patient also has tracheostomy site * Abimael Huston RN - 05/29/2023 9:23 PM EST Report called to Nurse Aracelis Malave RN. All questions answered. * Melanie Sena LPN - 05/29/2023 5:54 PM EST Dual Licensed Skin Assessment completed by Melanie Argueta LPN and Julito Dodson RN The patient is/has a N/A Skin Breakdown (includes non blanchable erythema): Yes. Wound Type: Other, location moisture associated area; right buttock; pea size, pink, Wound Ostomy Nurse Notified: No - wound ostomy not needed at this time Nursing interventions: turn and reposition; house stock barrier cream applied, frequent checks for incontinence. * Julito Pardo RN - 05/29/2023 3:08 PM EST Report called to [facility]. Left message on contact phone number for Emmie. Made aware of transfer to BP 517. Glasses on pt. Clothing in pt belonging bag. Transferred safely on monitored bed to 517. Pt turned for skin assessment of documented right buttock wound near sacrum. Updated on bladder scan and no urge to void/ no STR cath order. * Julito Pardo RN - 05/29/2023 11:16 AM EST 1100 Bladder scan 275 mL. No urge to void. Reported to [facility] S Romero. Hold off on STR cath d/t no discomfort & no urge to void. * Abimael Gallegos RN - 05/28/2023 3:00 PM EST Dual Licensed Skin Assessment completed by Jerrell Boateng and Ashia Barker. The patient is/has a unable to assess Skin Breakdown (includes non blanchable erythema): Yes. Wound Type: Moisture associated skin damage/incontinent related skin damage, location Small open wound on R gluteal. Pt. Also has small black scabbed area on R great toe Wound Ostomy Nurse Notified: Yes - notified via wound care protocol Nursing interventions: Zinc barrier cream, frequent turns/repos, offload pressure * Mikayla Walker RN - 05/28/2023 2:00 PM EST Trach obturator placed in bag with patient sticker and given to anesthesia team prior to patient leaving the OR suite. * Chandana Michel RN - 05/28/2023 5:40 AM EST Vascular Access Team: Consulted for placement of new 2nd PIV access. Patient currently with 18g PIVin left antecubital. Ultrasound utilized for assessment and findings are as follows: Right lower arm: - Cephalic vein non-compressible - Accessory Cephalic and Median veins not visible - Basilic vein non-compressible Right upper arm: - Cephalic vein non-compressible - Brachial vein less than 1.4mm in diameter and beneath muscle, not a candidate for PIV of any size - Basilic vein with thickened vessel lai, interior of vessel less than 1.4mm in diameter and too small for PIV of any size Left lower arm: - Cephalic vein non-compressible - Accessory Cephalic and Median veins not visible - Basilic vein not visible Left upper arm: - Cephalic vein non-compressible and barely visible - Brachial vein less than 1.4mm in diameter and beneath muscle, not a candidate for PIV of any size - Basilic vein with thickened vessel lai, interior of vessel less than 1.4mm in diameter and too small for PIV of any size Patient is NOT a candidate for PIV placement at this time Reasons patient is not a candidate: - Inadequate vessel size - Non-compressible veins Vascular Access Team Recommendations: - Consider placement of central venous access device, as patient will require dependable IV access for intraoperative and postoperative treatments. Kim Moore PA-C informed of findings and no suitable veins for placement of additional PIV access at this time. All findings and recommendations listed above were verified by Rajani Osman RN of the Vascular Access Team Chandana Michel Carri, [facility] * Shawna Sethi RN - 05/26/2023 5:18 PM EST Dual Licensed Skin Assessment completed by Shawna Mojica RN and Colleen Kim Rn. The patient is/has a unable to assess Skin Breakdown (includes non blanchable erythema): Yes. Wound Type: Moisture associated skin damage/incontinent related skin damage, location R buttcheek, sm. Open pressure wound. Zinc oxide paste applied. R greater toe black scab Wound Ostomy Nurse Notified: Yes - notified via wound care protocol Nursing interventions: Zinc oxide paste applied, turn and repo q2, hob elevated 30 degrees documented in this encounter OR Notes * OR Surgeon - Harley Lane MD - 05/28/2023 3:44 PM EST OPERATIVE RECORD [place], [place] [address] Farhad Dash Jr. 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 2) Fixed bilateral vocal folds with obvious neoplastic mass in the right hypopharynx, right arytenoid, and esophageal inlet extending 6-7cm in the esophagus. This was biopsied. DRAINS and/or PACKS: None ESTIMATED BLOOD LOSS: 5 ML FLUIDS: 1620 ML URINE: 0 ML SPECIMEN(s) OBTAINED and DISPOSITION: ID Source Tests Priority Auth Provider Collected By Collect Time Fzn Formalin Time 1 Neck SURGICAL PATHOLOGY Abimael De La Rosa DO [[id number]] Abimael De La Rosa DO 05/28/23 1422No Description: Right hypopharynx 2 Neck SURGICAL PATHOLOGY Abimael De La Rosa DO [[id number]] Abimael De La Rosa DO 05/28/23 1422No Description: Right arytenoid INDICATIONS & HISTORY: This is a 82 year old year old male with history of bilateral VF immobility, history of laryngeal cancer s/p radiation. He presents today for scheduled surgery. DESCRIPTION OF OPERATION: A timeout was held and the patient was identified and the procedure verified. With the patient in the supine position, light sedation was provided by anesthesiology. Local anesthesia was provided across the anterior neck. Bilateral lower extremity sequential compression devicestockings were in place. Patient's neck was extended slightly and patient was prepped and draped inthe usual fashion for anterior neck surgery. Land guan were palpated and a vertical midline delineated. This was incised with Bovie cautery on the cut setting to the level of the subcutaneous adipose tissue. Then the midline incision was carried through subcutaneous tissue on coag. The strap muscles then split and the dissection carried down to the pretracheal fascia. This was then bluntly dissected using a anni and the tissue divided with bovie cautery. The bovie used to dissect down to the cricoid cartilage. A House retractor was used to retract the trachea superiorly. The second and thirdtracheal rings were identified. The region was scored with the Bovie and incised with a 15 blade. Next the tracheal incision was spread with hemostats. A Kerrison Rongeur was then used to remove the anterior portions of the 2nd tracheal ring to create a tracheal opening. Once an adequate tracheal window was created, Bipolar cautery was used to obtain hemostasis of the cartilage edges. A previously tested and prepared Shiley 6CN75H (cuffed) trach tube was easily inserted through the tracheal window. The cuff was noted to be compromised so this was removed and a second 6CN75H trach was insertedinto the tracheal window. A red rubber catheter was passed into the tracheal lumen without resistance. The cuff was then inflated, and the ventilator circuit was connected. CO2 return and chest rise further confirmed the position of the trach tube within the tracheal lumen. The patient was placed under general anesthesia. The trach tube was then secured with four 2-0 silk sutures in each corner of the trach tube flange and velcro trach ties were secured in a two finger tight fashion. The bed was turned 90 degrees and a shoulder roll was placed. A mouth guard was placed along the upper incisors to protect the teeth. The Dedo laryngoscope was used to systematically evaluate the oral cavity, pharynx and larynx. The oral cavity was unremarkable. The tonsils were unremarkable bilaterally. The base of tongue was unremarkable. An obvious neoplastic lesion was noted along the right hypopharynx extending into the piriform sinus and along the right arytenoid. The vocal folds were fixed as was observed using the telescope. A biopsy was taken of the previously described mass using up biting cupped forceps. These were sentfor permanent pathology. A rigid esophagoscope was then passed and suspected tumor was observed 6-7cm into the esophagus. Hemostasis was obtained with afrin soaked gauze. This was removed and the patient was then turned over to anesthesiology for emergence. The patient was transferred back to the ICU and a chest X-ray was requested DISPOSITION: The patient was transferred to the the Post-Anesthesia Care Unit. APPARENT INTRAOPERATIVE COMPLICATIONS: None PATIENT CONDITION: Stable ATTESTATION: Dr. Chopra present for the entire case. Harley Lane MD Resident Physician Department of Otolaryngology Head & Neck Surgery Facial Plastic Surgery [address] [id number] cc: Professional Reimbursement and Compliance documented in this encounter ED Notes * Patrica Ascencio RN - 05/26/2023 2:10 PM EST Pt presents to [facility] ED via EMS for c/o SOB. Per EMS, pt comes from a SNF and has a known neck mass. Presents today with stridor. Pt placed on 4L NC on arrival to [facility] for SpO2 in high 80s/low 90s. Pt A&Ox4. * Kamari Smith MD - 05/26/2023 1:57 PM EST HISTORY OF PRESENT ILLNESS Farhad Dash Jr. is a 82 year old male who presents to the ED for evaluation of Short of Breath. The patient was seen at 05/26/23 1351. The patient's allergies, past history, and medications were reviewed. 82-year-old male chief complaint difficulty breathing. Past medical history of larynx cancer, diabetes mellitus. Patient was at a usp facility and 911 was called friend today for worsening difficulty breathing. Patient has larynx cancer and has seen ENT before who has recommended tracheostomy. Previously he was refused that. But it appears he was having worsening difficulty breathing today. Over past 2 days breathing has been getting progressively worse. HE used to not moan etc. Had inspiratory and expiratory stridor. No viral symptoms. Baseline cough. PHYSICAL EXAM Initial Vitals (see all): BP 101/52 | Pulse 86 | Resp 22 | Temp 97.2 | O2 90 %, Room Air, None | Weight 69.2 kg | Height 177.8 cm | Initial Pain Assessment (see all): 0 (no pain)/10 ([facility] Adult Scale 0-10) Physical Exam Vitals and nursing note reviewed. Constitutional: General: He is in acute distress. Appearance: He is well-developed. HENT: Head: Normocephalic and atraumatic. Eyes: Conjunctiva/sclera: Conjunctivae normal. Cardiovascular: Rate and Rhythm: Normal rate and regular rhythm. Heart sounds: No murmur heard. Pulmonary: Effort: Pulmonary effort is normal. Tachypnea present. No respiratory distress. Breath sounds: Normal breath sounds. Stridor present. Comments: Inspiratory stridor no expiratory stridor, supplemental oxygen in place Abdominal: Palpations: Abdomen is soft. Tenderness: There is no abdominal tenderness. Musculoskeletal: General: No swelling. Cervical back: Neck supple. Skin: General: Skin is warm and dry. Capillary Refill: Capillary refill takes less than 2 seconds. Neurological: Mental Status: He is alert. Psychiatric: Mood and Affect: Mood normal. PROCEDURES AND TREATMENTS ED Orders | ED Results MEDICAL DECISION MAKING Nursing notes and vital signs were reviewed. ED consults were placed. Differential Diagnoses Based on my history, physical exam, and evaluation, the differential includes, but is not limited, to the following diagnoses: Airway mass, pneumonia, cancer, hypoxia, hypercarbia. 82-year-old male chief complaint difficulty breathing. Past medical history of larynx cancer, diabetes mellitus. Patient presenting or 2 day history of worsening shortness of breath stridor. I called into [place] thecase with his jail staff. They state that if pretty story in her expiratory stridor that isworsening. He was brought in by EMS and they gave given him 0.3 mg of intramuscular epinephrine as well as continuous duo nebulizer treatments. This morning he was unable to even talk due to his respiratory distress by the time presenting emergency department get inspiratory stridor but was able to talk. I had a goals of care discussion with the patient. In the past he has refused any intubation or tracheostomy. I informed him with the progression of his neck mass it was likely that without surgical intervention he will not be able to maintain a patent airway and this did lead to the. He expressed understanding and stated that he would now like to progress to surgical measures. Patient was given a 10 mg dose of dexamethasone, nebulized epinephrine was given as well as a p.r.n. order placed and heliox was brought to the bedside. I discussed the case with ENT and critical Care Service. I reviewed notes from earlier today including discussion of transfer care to ENT here in [place]. Patient was admitted to critical care medicine Amount and/or Complexity of Data Reviewed Labs: ordered. Radiology: ordered. ECG/medicine tests: ordered. Risk OTC drugs. Prescription drug management. Decision regarding hospitalization. Clinical Impressions Stridor Vocal cord dysfunction Disposition Admitted. I discussed the management of this patient with the admitting provider and I made a decision to admit the patient. Admission Order Ordered Status . 05/26/23 1542 Admit for Inpatient Services (incl ZPO) ONCE Completed Kamari Smith was the attending physician who supervised the care of this patient. Cholo Causey DO ATTENDING ATTESTATION I have seen and examined this patient on the 05/26/2023 visit. I have discussed the patient's management with the provider listed above and agree with the note, findings, and plan of care. I personallymade/approved the management plan and take responsibility for patient management. Critical Care Time: I personally provided 33 minutes of critical care for this patient. Critical care time was exclusive of separately billable procedures, treating other patients, and teaching. The patient had a high probability of sudden, clinically significant, life-threatening deterioration. Critical care was necessary to treat the following conditions: acute respiratory failure. Critical care was time spent personally by me on the following activities: discussions with consultants, development of treatment plan, evaluation of patient's response to treatment and re-evaluation of patient's condition. Racemic nebs, steroids, emergent ent, ccm to the bedside documented in this encounter Miscellaneous Notes * Ancillary Progress Note - Shawna Silveira LSW - 06/11/2023 10:46 AM EST CARE MANAGEMENT - TRAUMA DISCHARGE NOTE [facility] [address] Name: Farhad Dash Location: [facility] B528/A Date: 06/11/2023 Time: 10:46 AM The following coordination of care and discharge plan has been coordinated with the care team, patient, family and/or caregiver according to the patients needs and preferences. Discharge Discharge Second Notice Important Message from Medicare delivered: Not Applicable (06/11/23 1045) Was Caregiver/Family/Facility contacted regarding discharge: Yes (06/11/23 104) Discharge Transportation: ALS (06/11/23 104) Date of scheduled discharge transportation: 06/11/23 (06/11/23 104) Final Discharge Plan (Complete only at time of Discharge): IP Rehab (06/11/23 104) Destination - Admitted Since 05/26/2023 Service Provider Selected Services Address Phone Fax Patient Preferred Last Updated [facility] [address] [place] [address] -- Shawna Silveira LSW 06/10/2023 1356 Narrative: Pt accepted at [facility]. SW updated pt and spouse, addressed questions and provided support around discharge. SW arranged transport for 12 noon. Discharge destination time-out called during BOOST rounds, all parties agreeable with transition plan of care. * Ancillary Progress Note - Nichole Elizondo COTA - 06/11/2023 9:17 AM EST PROGRESS NOTE - Occupational Therapy [facility] [address] Name: Farhad Dash Jr. Location: [facility] B528/A Date: 06/11/2023 Time: 9:17 AM Farhad Dash Jr. is a 82 year old male. Patient Status: Inpatient Insurance: Payor: MEDICARE Plan: MEDICARE A AND B Product Type: *No Product type* Payor: [employer] Plan: [employer] Product Type: *No Product type* Patient Seen: at bedside, nursing cleared patient for therapy Patient Identified By: Name, ID Band and Date Diagnosis: stridor (06/11/2314) Status of treatment: Treatment completed (06/11/23913) Orders: OT evaluation and treatment;OT OOB (06/11/23913) Weight Bearing Status: Weight bearing as tolerated (06/11/23913) Precautions: Alarms;Falls;Safety;Oxygen;Trach (06/11/23913) Total Treatment Time: 27 (06/11/23913) Pain: No complaints of pain Current Functional Status: Activities of Daily Living: Self Care Grooming: Supervision (Please comment) (06/11/23913) Toileting: Dependent (jenkins) (06/11/23913) Dressing Upper Body: Minimal Assistance (doff/ don gown) (06/11/23913) Lower Body: Minimal Assistance (don slipper socks; Supervision doff slipper socks) (06/11/23913) Bed Mobility Supine-Sit: Minimal Assistance (06/11/23913) OT Transfers Sit-Stand: Minimal Assistance (06/11/23913) Stand-Sit: Minimal Assistance (06/11/23913) Bed-Chair: Minimal Assistance (06/11/23913) Balance Sit (Static): Fair (06/11/23913) Sit (Dynamic): Fair (06/11/23913) Stand (Static): (Fair-) (06/11/23913) Stand (Dynamic): (Poor+) (06/11/23913) Alarm Status Patient positioned in: Chair (06/11/23913) With: Pressure pad alarm intact and functioning and call palomo in reach (06/11/23913) Following session patient seated OOB in chair with chair alarm activated and cord plugged into callbell system. Treatment Provided: Self Fdc Management Trainin minutes Assessment: Supine in bed upon entering room. Patient demonstrates grooming supervision level set up. Patient required assistance upper and lower body dressing seated at edge of bed. Patient requiredassistance of 1 with supine to sit edge of bed. Patient demonstrates sitting edge of bed supervision level. Patient performed functional transfers with assistance of 1 using rolling walker. Patient noted to have a flat affect throughout session. Patient would benefit from continued OT services to maximize functional independence. Please consider post-acute care services which may include home health, usp, outpatient therapy or inpatient rehabilitation. The level of care will be determined in collaboration with patient, family/caregiver and care team members. Plan: Will continue to follow as per plan. Anticipated Frequency (on eval): 1 to 3 times per week (06/11/23913) AM-PAC Help From Another Person Eating Meals: Total (06/11/23913) Help From Another Person Taking Care of Personal Grooming: A little (06/11/23913) Help From Another Person To Put On/Take Off Upper Body Clothing: A little (06/11/23913) Help From Another Person To Put On/Take Off Lower Body Clothing: A little (06/11/23913) Help From Another Person Toileting: Total (06/11/23913) Help From Another Person Bathing: A lot (06/11/23913) OT AM-PAC Score: 13 (06/11/23913) OT AM-PAC t-Scale Score: 32.03 (06/11/23913) A portion of this AM-PAC assessment not scored based on functional assessment; rather clinical decision making utilized based on current findings and/or prior level of function. Please refer to future AM-PAC calculations of functional ability as they become available. * Ancillary Progress Note - Chandler Miller PTA - 06/11/2023 8:00 AM EST PROGRESS NOTE - Physical Therapy [facility]-[address] [address] Name: Farhad Mariann Busbyjoaquin Nuñez Location: [facility] B528/A Date: 06/11/2023 Time: 08:00 AM Farhad Mariann Ekta Nuñez is a/an 82 year old male. Patient Status: Inpatient Insurance: Payor: MEDICARE Plan: MEDICARE A AND B Product Type: *No Product type* Payor: [employer] Plan: [employer] Product Type: *No Product type* Patient Seen: at bedside, nursing cleared patient for therapy Patient Identified By: Name, ID Band and Date Diagnosis: stridor, tracheostomy (06/11/23 0800) Status of treatment: Treatment completed (06/11/23799) Orders: PT evaluation and treatment;OOB (06/11/23799) Weight Bearing Status: Weight bearing as tolerated (06/11/23799) Precautions: Alarms;Falls;Trach;Safety;Oxygen (06/11/23799) Total Treatment Time--free text: 27 (06/11/23799) Subjective: Pt offers no complaints at this time. Pain: No complaints of pain P.T. Bed Mobility Supine-Sit: Minimal Assistance (06/11/23799) Transfers Sit-Stand: Minimal Assistance (06/11/23799) Stand-Sit: Minimal Assistance (06/11/23799) W/C-Bed/Mat: Minimal Assistance with Rolling Walker (06/11/23799) Ambulation: Distance ambulated (feet): 3 Assistive Device: Rolling walker Assist: Minimal Assistance Balance Sit (Static): Fair (06/11/23799) Sit (Dynamic): (Fair -) (06/11/23799) Stand (Static): (Poor +) (06/11/23799) Stand (Dynamic): (Poor+) (06/11/23799) Patient and or Family Goal(s): to get well Topic of Education: Safety with mobility and Use of assistive device Method of Education: Verbal discussion and explanation provided to patient: demonstrated the exercise and or task Treatment Provided: Therapeutic Activities 20 minutes: bed mobility training transfer training Gait Training 7 minutes: gait training with rolling walker Alarm Status Patient positioned in: Chair (06/11/23799) With: Pressure pad alarm intact and functioning and call palomo in reach (06/11/23799) Patient Education Review of Precautions: Safety (06/11/23799) Safety Awareness: Patient demonstrates carryover of insight during functional tasks;Patient can communicate basic needs (06/11/23799) Preferred learning method: Combination (06/11/23799) Barriers to learning: Speaking (06/11/23799) Method of Education: Verbalized to patient (06/11/23799) Assessment: Patient was asleep and supine in bed prior to treatment. Unable to use voice at this time, but agreeable to treatment (head nods) and did not offer any complaints of pain. Patient sat at edge of bed with minimal assistance; No complaints of dizziness or light headedness when asked. Tarsha became unmotivated to walk to bedside chair, but did eventually agree to ambulate 3 ft to chair. Minimal assistance required to stand and some verbal cues for hand placement/safety. Farhad ambulated 3 ft to chair, with rolling walker, minimal assistance. Minimal assistance to sit. Patient was left in bedside chair with call palomo in reach. Please consider post-acute care services which may include home health, usp, outpatient therapy or inpatient rehabilitation. The level of care will be determined in collaboration with patient, family/caregiver and care team members. Deficits requiring P.T. treatment needs: Safety;Mobility;Balance;Weakness;Endurance (06/11/23 0800) Equipment needs: No device (05/31/23 1225) Plan: Continue with current treatment plan established on evaluation. AM PAC Score with Stairs: 17. A portion of this AM-PAC assessment not scored based on functional assessment; rather clinical decision making utilized based on current findings and/or prior level of function. Please refer to future AM- PAC calculations of functional ability as they become available. * Care Plan - Dennys Alvarado RN - 06/11/2023 4:28 AM EST Clinical Goal(s): Patient will remain free from falls (06/10/23 2300) Possible barriers to meeting goal(s)/advancing plan of care: Patient condition Stability of the patient: Moderately stable - low risk of patient condition declining or worsening Summary regarding today's goal(s): Met: No episode of falls Recommendations: Continue fall precaution * Care Plan - Nikki Arechiga RN - 06/10/2023 4:58 PM EST Clinical Goal(s): Pt will remain free from falls during this shift (06/10/23 0700) Possible barriers to meeting goal(s)/advancing plan of care: Pt's condition Stability of the patient: Moderately stable - low risk of patient condition declining or worsening Summary regarding today's goal(s): Met: Pt remained free from falls Recommendations: Continue to implement fall precautions * Ancillary Progress Note - Alma Trujillo CCC-HAND CARVER - 06/10/2023 3:39 PM EST PROGRESS NOTE - Speech-Language Pathology [address] [address] Name: Farhad Dash Jr. Location: [facility] B528/A Date: 06/10/2023 Time: 3:39 PM Patient Status: Inpatient Insurance: Payor: MEDICARE / Plan: MEDICARE A AND B / Product Type: *No Product type* / Patient Age: [age] year old Pt was seen this date for treatment Pt lase seen 06/05 for completion of MBSS at which time it was recommended he be NPO He maintains NPO w/PEG He maintains Shiley [id number] Per nursing pt's inner canula is being changed every 1-2 hours Secretions were noted to be semi thick and yellow He is currently receiving quad shot radiation Pt was received laying in bed w/his eyes closed but he easily woke to auditory stimulation Pt was able to voice w/manual occlusion of the trach His vocal quality is raspy/hoarse He expressed frustration w/his medical dx and current condition He communicated that he wants to eat Recommend Allow ice chips and sips of water in moderation w/good oral care for comfort and to facilitate overall swallow function GOC regarding PO intake moving forward w/this pt Will look to perform instrumental assessment following completion of radiation Speech to continue to follow * Ancillary Progress Note - Shawna Silveira LSW - 06/10/2023 2:30 PM EST POST ACUTE CARE CARE MANAGEMENT [address] [address] Name: Farhad Dash JrFarzana Location: [facility] B528/A Date: 06/10/2023 Time: 2:30 PM Post-Acute Care Patient General Information Living Quarters: Alf Facility (SNF for short term rehab, with spouse at home prior) (05/28/231403) Location of bathroom(s): All floors or Single story dwelling (05/28/231403) History of falling: No (06/10/23 0400) What was your living situation prior to admission/observation?: At a Intermediate (05/28/231403) Do you have any children, pets, or other dependents that you are currently caring for?: No (05/28/231403) AM-PAC Score With Stairs : 13 (06/08/23 0700) Post-Acute Care with AM-PAC < 17.99 Rehab diagnosis: Access IRF (06/10/231425) Inpatient Rehab Facility (IRF) Guidelines (1-8): Requires face to face interaction with a rehabilitative physician at a minimum of 3 times per week;Requires access to a rehabilitative RN 09/12;Able toparticipate in intensive therapy program consisting of treatment at a minimum of 3 hours per day 5 days per week;Indicate therapy modalities;Able to participate in rehabilitative therapy program including realistic goals with predictable timeframes for completion of goals;Rehabilitation intensity and frequency makes the services impracticable to obtain in less intense setting;Requires coordination care conference at least 1 time/week;Frequent assessment of progression toward goals (06/10/231425) Therapy Modalities: Physical Therapy;Occupational Therapy;Speech Therapy (06/10/231425) Inpatient Rehab Facility (IRF) Guidelines (9-12): Assistance with resolution of issues impeding rehabilitative progress;Established rehabilitative progress;Frequent monitoring and or revision of treatment plan;Frequent re- assessment of established rehabilitative progress (06/10/231425) Alf Facility (SNF) Guidelines For Medical Approval (must select both): Does not meet criteria (06/10/231425) SNF guidelines for Rehab Approval (All selections required): Does not meet criteria (06/10/231425) Medical Procedures: Tracheostomy less than 30 days since insertion (06/10/231425) Therapy Modalities: Physical Therapy;Occupational Therapy;Speech Therapy (05/30/23 09) Intense Care Plan Goals: Completion of home evaluation, assistance with home modifications;Family medication and/or transfer training;Assistance with application for community services;Coordination of multiple community services (06/10/23 1426) SNF Required Training: Gait training;Transfer Training;ADL training, with or without adaptive equipment;Speech therapy for cognitive training in conjunction with 1 additional modality (05/30/23 0942) Approved for Alf Rehab: Approved for Alf Rehab (05/30/23 0942) Meets criteria for Inpatient Rehab Facility (IRF): Patient meets criteria for IRF (06/10/23 1425) Pt accepted at [facility] for tomorrow, 06/11. SW updated pt and spouse. SW requested transport for tomorrow and updated team. * Ancillary Progress Note - Rashida Gipson RDN - 06/10/2023 10:49 AM EST CLINICAL NUTRITION CONSULT/PROGRESS NOTE [facility] [place] [address] Name: Farhad Dash Jr. Location: [facility] B528/A Date: 06/10/2023 Time: 10:49 AM How patient was identified (select 2): Wristband, date, and Name Discussed in interdisciplinary rounds: Ketty Farhad Dash Jr. is a 82 year old male being seen for follow-up Primary Diagnosis: Admitted with stridor with airway compromise - hx of laryngeal cancer, T2DM 05/28 - Tracheotomy; Direct laryngoscopy and biopsy; esophagoscopy Other pertinent information: Pt reports no issues with N/V. No c/o diarrhea. Last bowel movement noted on 06/09. HAND CARVER latest recommendations for continued NPO status. Pt tolerating current TF regimen. Weight is stable. NUTRITION ASSESSMENT: Past medical/surgical history and medications reviewed. Food/Nutrition-Related History Nutrition Support: Nutren 1.5, 250 mL x5 daily (1250 mL formula, 1875 Kcals, 85 gm protein, 950 mL free water) 200 ml free water TID - 600 ml free water Diet: NPO Previously followed diet: Tube feeding: Jevity 1.5 at 55 ml/hr over 22 hours ( 1210 ml,1815 kcal, 77 gm protein and 919.6 ml free water ) per paper chart Food Allergies/Intolerances: No known Adult Energy Intake: No significant decrease Pertinent medications/vitamins/minerals/supplements: colace, novolog, lantus, levoxyl, omeprazole, senokot, miralax Pertinent Biochemical Data: There are no biochemical abnormalities requiring a change in the nutrition plan of care. Nutrition-Focused Physical Findings: Appearance: Thin Respiratory support: Supplemental O2 Delivery: Trach Collar/Mask Nasal/Oral: Swallow function, compromised or painful Digestive: No issues identified Last Bowel Movement: 06/09/23 (06/09/23 1354) Cognition: Awake, alert Skin: Compromise with nutrition-related implications Stage 2 pressure injury - sacrum Enteral access: G/J tube Nutrition Focused Physical Exam: NFPE completed on 06/10/23 Subcutaneous Fat Loss: Orbital fat pads: Severe Buccal fat: Severe Tricep: Severe Muscle Loss: Temples: Severe Clavicles: Severe Shoulders: Severe Quadriceps: Unable to assess Calves: Severe Anthropometrics Measurements Height: 177.8 cm (5' 10") (06/08/23 0614) Admission weight: 69.2 kg Weight: 68.7 kg (151 lb 6.4 oz) (06/10/23 0246) BMI: 22.04 (06/08/2314) Usual Body Weight: 74.8 kg in Feb 2023 at MD office visit [place] weight: 78.7 kg [place] Weight Based on BMI: 24.9 Interpretation of Weight Change Prior to Admission: 7.5% weight loss in 3 months (Moderate) Weight Changes Since Admission: currently stable Nutrition Prescription: Energy needs: 25-30 Kcal/kg Kcal/day: 2440-2425 Based on admission weight Protein needs: 1.25-1.5 gm/kg Protein: 86-103 Based on admission weight Fluid needs: 25 ml/kg Fluid: 1730 ml/day Based on admission weight Malnutrition: Malnutrition Present: Yes (05/27/231134) Adult Malnutrition Classification: Severe (05/27/231134) Malnutrition Characteristics: Fat loss;Muscle loss;Weight loss (05/27/231134) NUTRITION DIAGNOSIS: Malnutrition severe related to chronic illness as evidenced by 7.5% weight loss x 3 months, severe fat loss, and severe muscle loss. 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 Goals: Continue to tolerate enteral feeding at current goal rate NUTRITION INTERVENTION/PLAN: Continue to monitor NPO/clear liquid status Continue to monitor nutrition support Continue current care plan Clinical Nutrition Recommendations: Diet: Advance diet when clinically feasible Safest consistency per HAND CARVER evaluation and recommendations Enteral Nutrition: Would recommend continuing current regimen Nutren 1.5, 250 mL x5 daily (1250 mL formula, 1875 Kcals, 85 gm protein, 950 mL free water) *Hold TF one hour before and after administration of levoxyl* Can continue current free water flushes: 200 ml TID, which provides: 600 ml free water NUTRITION MONITORING AND EVALUATION: NPO status/diet advancement and tolerance Enteral nutrition intake for formula, rate, progress toward goal regimen Continued tolerance of enteral nutrition at goal rate Lab values warranting change with MNT Weight for trends Plan follow-up: Will follow and adjust nutrition plan of care as medical condition requires. Please contact for change(s) in patient condition requiring earlier intervention. Rashida Gipson RDN, LDN Clinical Dietitian Extension: [phone] [employer] * Ancillary Progress Note - Chandler Miller PTA - 06/10/2023 10:00 AM EST Farhad Dash Jr. [id number] [facility] B528/A Physical Therapy Attempted to see patient for PT this AM, patient was off the floor in Radiology. Will continue to follow as per POC. * Care Plan - Dennys Alvarado RN - 06/10/2023 4:39 AM EST Clinical Goal(s): Patient will remain free from falls (06/09/23 2300) Possible barriers to meeting goal(s)/advancing plan of care: Patient condition Stability of the patient: Moderately stable - low risk of patient condition declining or worsening Summary regarding today's goal(s): Met: No episode of falls Recommendations: Continue fall precaution * Care Plan - Nano Campuzano RN - 06/09/2023 5:22 PM EST Clinical Goal(s): patient will maintain oxygenation greater than 92% this shift. (06/09/23 0700) Possible barriers to meeting goal(s)/advancing plan of care: patient condition Stability of the patient: Moderately stable - low risk of patient condition declining or worsening Summary regarding today's goal(s): Met: patient maintained oxygenation greater than 92%. Recommendations: continue to implement supplemental oxygenation * Ancillary Progress Note - Shawna Silveira LSW - 06/09/2023 1:40 PM EST CARE MANAGEMENT - TRAUMA TRANSITION NOTE [facility] [place] [address] Name: Farhad Waite Ekta Nuñez Location: [facility] B528/A Date: 06/09/2023 Time: 1:40 PM Risk Stratification Risk Stratification Psycho Social / Medical Concerns Identified: Adjustment to illness/injury;Multiple Comorbidities (05/28/23 1404) Accessed [employer] to connect patients to social care resources: No (05/28/23 1404) OBRA or OPTIONS needed for placement: No (05/28/23 1404) Readmission Risk Score: 21.14 (06/09/23 1200) AM-PAC Score With Stairs : 13 (06/08/23 0700) Caregiver Information Patient Contacts Name Relation Home Work Mobile Emmie Dash Spouse [phone] [place] Adult Child [phone] Transition of Care Checklist Narrative: Pt discussed during BOOST and medical records were reviewed. Per team/records pt to receive quad shot radiation today and tomorrow, anticipated medically ready Friday (06/11). Family shared preference of IRF. Referrals placed, sw followed up with liaisons to review with timeline. SW will continue to follow. Anticipated Transportation at Discharge: ALS Patient/Family Expectations: IRF Transition Planning Transition Planning Transition Plan/Considerations: Needs identified - Discharge planning services explained to patientfamily / caregiver - Choices offered;CM provided contact information and will update plan as needs arise;Discussed at Interdisciplinary Team / Boost Rounds (05/28/231408) Transition services explained and patient/family/caregiver agreeable: Alf (05/28/231408) Transition planning services explained and patient/family/caregiver agreeable: List of SNFs by [facility] that participate in Medicare programs provided and reviewed with patient and caregiver (05/30/23939) [facility] Quality Rating provided to patient: Yes (05/30/23939) Repisodic Choice provided to patient: Yes (05/30/23939) Transition plan discussed with - Enter name and phone #: Spouse (05/30/23939) Insurance Considerations: Therapy documentation needed for precert request (05/28/231408) Referral to Community Agency : N/A (05/28/231408) Post-Acute Care needs identified and Referrals Completed: Tracheostomy Care;Physical Therapy;Occupational Therapy (05/28/231408) Agency Choice Due to: Care previously established (05/28/231408) Additional Considerations: Care Management will continue to monitor and assist with discharge planning needs * Care Plan - Joey Maddox RN - 06/08/2023 8:16 PM EST Clinical Goal(s): Pt will remain free from falls this shift (06/08/23 1500) Possible barriers to meeting goal(s)/advancing plan of care: Stability of the patient: Moderately stable - low risk of patient condition declining or worsening Summary regarding today's goal(s): Met: Patient remained safe during my shift Recommendations: continue plan of care * Care Plan - Vivi Mills RN - 06/08/2023 2:47 PM EST Clinical Goal(s): Pt will remain free from falls this shift (06/08/23 1500) Possible barriers to meeting goal(s)/advancing plan of care: pt condition Stability of the patient: Moderately stable - low risk of patient condition declining or worsening Summary regarding today's goal(s): Met: pt remained free from falls this shift Recommendations: continue fall risk precautions * Ancillary Progress Note - Stephany Huerta RDN - 06/08/2023 12:02 PM EST CLINICAL NUTRITION INTERVAL NOTE [facility] [place] [address] Name: Farhad Dash Jr. Location: [facility] B528/A Date: 06/08/2023 How patient was identified (select 2): Medical record number and Name Farhad Dash Jr. is being seen in follow up for adjustment in nutritional care and enteral nutrition Diet: NPO Current Enteral Nutrition Support: Nutren 1.5 at 65 mL/hr (1430 mL formula, 2145 Kcals, 97 gm protein, 1087 mL free water) Chart reviewed for pertinent nutrition information. Primary team reached out requesting bolus tube feed recommendations. Clinical Nutrition Recommendations: Enteral Nutrition Support: Nutren 1.5, 250 mL x5 daily (1250 mL formula, 1875 Kcals, 85 gm protein, 950 mL free water) -150 mL free water flush x5 daily provides ~1700 mL free water daily -Avoid feeding within 1 hour before/after Levoxyl dose. Currently scheduled at 10 AM. Stephany Huerta MS, RDN, LDN Clinical Dietitian [employer] * Care Plan - Valeria Lion RN - 06/08/2023 7:25 AM EST Clinical Goal(s): Maintain tube feeding (06/07/23 2300) Possible barriers to meeting goal(s)/advancing plan of care: Patient diagnosis Stability of the patient: Moderately stable - low risk of patient condition declining or worsening Summary regarding today's goal(s): Met: Patient maintain tube feeding throughout shift Recommendations: Continue to monitor tube feeding * Care Plan - Joey Maddox RN - 06/07/2023 11:12 PM EST Clinical Goal(s): Patient will remain safe during my shift (06/07/231999) Possible barriers to meeting goal(s)/advancing plan of care: Stability of the patient: Moderately stable - low risk of patient condition declining or worsening Summary regarding today's goal(s): Met: Patient remained safe during my shift Recommendations: continue plan of care * Communication - Vaishali Valle MD - 06/07/2023 4:22 PM EST Brief Urology Note Primary team reached our regarding patient having blood clots with intermittent catheterization He was last seen by urology 06/02 for blood around urethral meatus. He has history of BPH which has been managed with doxazosin. He had jenkins catheter placed for retention and blood was noted at meatus suggestive of traumatic jenkins placement. He has since had jenkins removed but was still retaining and getting straight catheterizations Discussed with team to place indwelling catheter. Latex coude was placed and upon my examination the urine is clear yellow. Recommend keeping jenkins in at this time. Jenkins will need to be exchanged weekly.He patient can follow up with [facility] urology for further management along with gross hematuria workup. If decreased output or concern for clotted jenkins , okay to flush/aspirate catheter with 60cc NSS prn Urology to sign off, please reach out with any questions Mati Nino MD Urology PGY-2 [facility] 06/07/2023, 4:31 PM Attending Attestation: I have discussed the patient's management with the medical trainee and agree with the note. Please refer to the documented findings and plan of care. The patient's bedside service on 07 Jun 2023 (this is a late entry) consisted of a service. I have reviewed the medical history, physical examination, diagnosis, and plan, as performed by the trainee. * Care Plan - Vivi Mills RN - 06/07/2023 2:21 PM EST Clinical Goal(s): PTwill remain free from falls this shift (06/07/23 1500) Possible barriers to meeting goal(s)/advancing plan of care: pt condition Stability of the patient: Moderately stable - low risk of patient condition declining or worsening Summary regarding today's goal(s): Met: pt remained free from falls this shift Recommendations: continue safety precautions * Care Plan - Meme Arellano RN - 06/07/2023 5:57 AM EST Clinical Goal(s): pt will remain free from injury throughout this shift (06/06/231999) Possible barriers to meeting goal(s)/advancing plan of care: pt diagnosis Stability of the patient: Moderately unstable - medium risk of patient condition declining or worsening Summary regarding today's goal(s): Met: pt remain free from injury during shift Recommendations: continue injury prevention mgt * Ancillary Progress Note - Vivi Storm LSW - 06/06/2023 1:35 PM EST CARE MANAGEMENT - ADULT TRANSITION NOTE [facility] [place] [address] Name: Farhad Mariann Ekta Nuñez Location: [facility] B528/A Date: 06/06/2023 Time: 1:35 PM Risk Stratification Risk Stratification Psycho Social / Medical Concerns Identified: Adjustment to illness/injury;Multiple Comorbidities (05/28/231403) Accessed [employer] to connect patients to social care resources: No (05/28/231403) OBRA or OPTIONS needed for placement: No (05/28/231403) Readmission Risk Score: 18.44 (06/06/23 1200) AM-PAC Score With Stairs : 13 (06/06/23 1153) Caregiver Information Patient Contacts Name Relation Home Work Mobile Emmie Dash Spouse [phone] [place] Adult Child [phone] Transition of Care Checklist Narrative: SW participated in IDT rounds this morning. Patient remains admitted. Plan for quad shotradiation Mon and . PM&R recommending IRF. Referrals made to [facility] and [facility]. No referral to [facility] given they do not accept new trachs there. Both IRFs are reviewing and will need to know if outpatient radiation therapy plan can be flexible and wait until after rehab. Recommend bedside nursing and ENT discuss trach care with as she is anxious about eventually caring for patient at home after rehab. SW will continue to follow, offer support, and address evolving needs as appropriate. Anticipated Transportation at Discharge: ALS (new trach) Patient/Family Expectations: rehab Transition Planning Transition Planning Transition Plan/Considerations: Needs identified - Discharge planning services explained to patientfamily / caregiver - Choices offered;CM provided contact information and will update plan as needs arise;Discussed at Interdisciplinary Team / Boost Rounds (05/28/231408) Transition services explained and patient/family/caregiver agreeable: Alf (05/28/231408) Transition planning services explained and patient/family/caregiver agreeable: List of SNFs by [facility] that participate in Medicare programs provided and reviewed with patient and caregiver (05/30/23939) [facility] Quality Rating provided to patient: Yes (05/30/23939) Repisodic Choice provided to patient: Yes (05/30/23939) Transition plan discussed with - Enter name and phone #: Spouse (05/30/23939) Insurance Considerations: Therapy documentation needed for precert request (05/28/231408) Referral to Community Agency : N/A (05/28/231408) Post-Acute Care needs identified and Referrals Completed: Tracheostomy Care;Physical Therapy;Occupational Therapy (05/28/231408) Agency Choice Due to: Care previously established (05/28/231408) Additional Considerations: none Care Management will continue to monitor and assist with discharge planning needs * Ancillary Progress Note - Michelle Curtis PTA - 06/06/2023 11:17 AM EST PROGRESS NOTE - Physical Therapy [facility] [address] Name: Farhad Dash Jr. Location: [facility] A459/A Date: 06/06/2023 Time: 11:17 AM Farhad Dash Jr. is a/an 82 year old male. Patient Status: Inpatient Insurance: Payor: MEDICARE Plan: MEDICARE A AND B Product Type: *No Product type* Payor: [employer] Plan: [email or web address]UAL[employer] Product Type: *No Product type* Patient Seen: at bedside, nursing cleared patient for therapy Patient Identified By: Name, ID Band and Date Diagnosis: stridor, tracheostomy (06/06/231152) Status of treatment: Treatment completed (06/06/231152) Orders: PT evaluation and treatment;OOB (06/06/231152) Weight Bearing Status: Weight bearing as tolerated (06/06/231152) Precautions: Alarms;Falls;Trach;Safety;Oxygen;Isolation (06/06/231152) Total Treatment Time--free text: 36 (06/06/231152) Pain: No complaints of pain P.T. Bed Mobility Roll (Right): Supervision (06/06/231152) Supine-Sit: Minimal Assistance (06/06/231152) Sit-Supine: Supervision (06/06/231152) Transfers Sit-Stand: Minimal Assistance (x2 due to safety/ BP concerns) (06/06/231152) Stand-Sit: Minimal Assistance (x2 due to safety/ BP concerns) (06/06/231152) Ambulation: Distance ambulated (feet): 3 Assistive Device: No device Assist: Minimal Assistance x2 due to safety/ BP concerns Balance Sit (Static): Fair (06/06/231152) Sit (Dynamic): Fair (-) (06/06/231152) Stand (Static): Poor (06/06/231152) Stand (Dynamic): Poor (06/06/231152) Patient and or Family Goal(s): to get well and to return home Topic of Education: Safety with mobility, Goals/plan of care, and Fall prevention Method of Education: Verbal discussion and explanation provided to pt: demonstrated the exercise and or task Treatment Provided: Therapeutic Activities 28 minutes: bed mobility training transfer training Gait Training 8 minutes: gait training with no device Alarm Status Patient positioned in: Bed (06/06/23 115) With: Bed alarm intact and functioning and call palomo in reach (06/06/23 115) Patient Education Review of Precautions: Safety (06/06/231152) Safety Awareness: Patient demonstrates carryover of insight during functional tasks;Patient can communicate basic needs (06/06/23 115) Preferred learning method: Combination (06/06/23 115) Barriers to learning: Hearing;Speaking (06/06/231152) Method of Education: Verbalized to patient;Patient demonstrated task (06/06/23 115) Assessment: Pt alert and agreeable to treatment. Pt requires supervision assistance for rolling to right. minimal assistance x1 for supine to sit and supervision for sit to supine. Pt sat at edge of bed for approximately 20 minutes with static and dynamic functional tasks to increase strength, coord ination, and activity tolerance. minimal assistance x2 for sit <> stands without assistive device due to safety/ BP concerns . minimal assistance x2 for 3 ft of ambulation without assistive device due to safety/ BP concerns. Pt ambulated from one bed to another due to pt soon transferring to another unit in hospital. Pt fatigued and short of breath post ambulation with seated rest break at edge of bed to recover. Blood pressure monitored throughout treatment. Supine at start of treatment was 108/61. Edge of bed at 93/ 51. Edge of bed after resting at 99/ 57 with SpO2 at 94 %. Post ambulation from one bed to another bed at 99/71. Supine post treatment at 141/ 77 and SpO2 at 100%. Verbal and tactile cues for posture, positioning, sequencing, and safety. Please consider post- acute careservices which may include home health, usp, outpatient therapy or inpatient rehabilitation. The level of care will be determined in collaboration with patient, family/caregiver and care team members. Deficits requiring P.T. treatment needs: Safety;Mobility;Balance;Weakness;Endurance (06/06/23 115) Equipment needs: No device (05/31/23 1225) Plan: Continue with current treatment plan established on evaluation. AM PAC Score with Stairs: 13 A portion of this AM-PAC assessment not scored based on functional assessment; rather clinical decision making utilized based on current findings and/or prior level of function. Please refer to future AM-PAC calculations of functional ability as they become available. * Ancillary Progress Note - Georgia Bateman COTA - 06/06/2023 11:17 AM EST PROGRESS NOTE - Occupational Therapy [facility] [place] [address] Name: Farhad Dash Jr. Location: [facility] B528/A Date: 06/06/2023 Time: 1:28 PM Farhad Dash Jr. is a 82 year old male. Patient Status: Inpatient Insurance: Payor: MEDICARE Plan: MEDICARE A AND B Product Type: *No Product type* Payor: [employer] Plan: [employer] Product Type: *No Product type* Patient Seen: at bedside, nursing cleared patient for therapy Patient Identified By: Name, ID Band and Date Diagnosis: stridor (06/04/231228) Status of treatment: Treatment completed (06/06/231116) Orders: OT evaluation and treatment;OT OOB (06/06/231116) Weight Bearing Status: Weight bearing as tolerated (06/06/231116) Precautions: Alarms;Falls;Safety;Oxygen;Trach (06/06/231116) Total Treatment Time: 36 (06/06/231116) Subjective: Patient pleasant and cooperative Pain: No complaints of pain Observations Consciousness: Alert (06/06/231116) Orientation: Oriented times 4 (06/06/231116) Cognitive Limitations: Processing (06/04/23 1229) Psychosocial: Patient can communicate basic needs (06/06/231116) Sitting posture: Forward head;Rounded shoulders (06/06/231116) Standing posture: Forward head;Rounded shoulders (06/06/231116) Safety awareness: Needs cueing supervision. (06/06/231116) Other Findings Endurance: Functional activity;Poor (06/06/231116) Coordination: Intact (05/31/231156) Current Functional Status: Activities of Daily Living: Self Care Able to provide self care: Yes (05/31/231156) Grooming: Supervision (Please comment) (05/31/231156) Dressing Upper Body: Not Tested (06/06/231116) Lower Body: Moderate Assistance (06/06/231116) Functional Ambulation Assistive Device: (side by side assistance) (06/06/231116) Distance in feet:: 3 (06/06/231116) Level of Assistance: Not Tested (06/04/23 1229) Bed Mobility Roll (Right): Supervision (06/06/231116) Roll (Left): Not Tested (06/06/231116) Supine-Sit: Not Tested (06/06/231116) Sit-Supine: Contact Guard (06/06/231116) Sidelying - Sit: Minimal Assistance (06/06/231116) OT Transfers Sit-Stand: Minimal Assistance (X2) (06/06/231116) Stand-Sit: Minimal Assistance (X2) (06/06/231116) Bed-Chair: Minimal Assistance (X2) (06/06/231116) Balance Sit (Static): Fair (06/06/231116) Sit (Dynamic): (Fair-) (06/06/231116) Stand (Static): Poor (06/06/231116) Stand (Dynamic): Poor (06/06/231116) Patient Education Education Topic: Role of OT;Plan of care goals (06/06/231116) Review of Precautions: Safety;Fall (06/06/231116) Barriers to learning: Medical status (06/06/231116) Preferred learning method: Combination (06/06/231116) Alarm Status Patient positioned in: Bed (06/06/231116) With: Bed alarm intact and functioning and call palomo in reach (06/06/231116) Treatment Provided: Self Fdc Management Trainin minutes Therapeutic Activity: 28 minutes Deficits requiring O.T. treatment needs: Balance;Endurance;ADL/self- care;Functional mobility;Safety;Upper extremity strength;Weakness (06/06/231116) Assessment: Patient was found laying supine in bed upon arrival to room; awake and alert. Patients primary nurse gave permission to therapist to proceed with therapy. Remains on trach collar. Patientrequired frequent breaks due to fatigue, but did not verbalize complaints of dizziness this session, but blood pressures were monitored due to hypotension demonstrated previous session. Blood pressure supine 108/61 Seated- 93/51 and 99/57 Post transfer and ambulation ~3' X1 - 99//71 Supine- 141/71 Patient was able to roll to the right with supervision level but required Min A to transition side-lying to sit at the edge of the bed. He sat edge of bed ~20 minutes to improve tolerance and strength in order to maximize independence and safety in preparation to perform ADL's . Patient was able tolean forward to doff socks but demonstrated difficulty completing task due to impaired sitting jaydon ce, decreased functional reach and fatigue requiring therapists assistance to complete task safely.Patient demonstrated bed mobility and functional transfers and short distance 3' X1 with side by side assistance provided with Min A 1-2 people for safety. Patient was returned to supine with contactguard assistance. Further mobility was deferred due transitioning to another floor. Please considerpost-acute care services which may include home health, usp, outpatient therapy or inpatient rehabilitation. The level of care will be determined in collaboration with patient, family/caregiver and care team members. Plan: Will continue to follow patient per plan of care. Anticipated Frequency (on eval): 1 to 3 times per week (06/06/231116) AM-PAC Help From Another Person Eating Meals: A little (06/06/231116) Help From Another Person Taking Care of Personal Grooming: A little (06/06/231116) Help From Another Person To Put On/Take Off Upper Body Clothing: A little (06/06/231116) Help From Another Person To Put On/Take Off Lower Body Clothing: A lot (06/06/231116) Help From Another Person Toileting: A lot (06/06/231116) Help From Another Person Bathing: A lot (06/06/231116) OT AM-PAC Score: 15 (06/06/231116) OT AM-PAC t-Scale Score: 34.69 (06/06/231116) HLM (Highest Level of Mobility) Goal: Level 4 move to chair/commode (06/06/23 1153) A portion of this AM-PAC assessment not scored based on functional assessment due to ; rather clinical decision making utilized based on current findings and/or prior level of function. Please refer to future AM-PAC calculations of functional ability as they become available. * Communication - Virginia Solano MD - 06/06/2023 1:56 AM EST BRIEF ENT COMMUNICATION: I received an emergency priority page at 2315 that the patient's trach had dislodged from his stoma. Unclear how this happened. The patient's nurse was rounding and appreciated that the patient was stridulous. I arrived at the patient's bedside at around 2320. Maintaining oxygen saturations >90%, though stridulous. The patient's old 6UN75H tracheostomy tube was removed atraumatically. A new 6UN75H tracheostomy tube was placed in the patient's stoma atraumatically. Position confirmed with flexible tracheoscopy. The patient tolerated the procedure well. The patient maintained his oxygen saturations >90% throughout the duration of my evaluation and the emergent trach change. The patient will be discussed with Dr. Conrad. Virginia Solano MD PGY-2 Otolaryngology Resident 06/06/2023 1:58 AM * Care Plan - Chloé Sepulveda RN - 06/05/2023 6:56 PM EST Clinical Goal(s): turn, repos, oob (06/05/23 0800) Possible barriers to meeting goal(s)/advancing plan of care: pain, deconditioning, fatigue, weakness Stability of the patient: Moderately stable - low risk of patient condition declining or worsening Summary regarding today's goal(s): Met: patient was out of bed to chair for 2 hours, was turned and repositioned to maintain skin integrity Recommendations: continue current treatment plan * Ancillary Progress Note - Vivi Storm LSW - 06/05/2023 10:54 AM EST CARE MANAGEMENT - ADULT TRANSITION NOTE [facility] [place] [address] Name: Farhad Dash Jr. Location: [facility] A459/A Date: 06/05/2023 Time: 10:55 AM Risk Stratification Risk Stratification Psycho Social / Medical Concerns Identified: Adjustment to illness/injury;Multiple Comorbidities (05/28/231403) Accessed [employer] to connect patients to social care resources: No (05/28/231403) OBRA or OPTIONS needed for placement: No (05/28/231403) Readmission Risk Score: 20.12 (06/05/23 0800) AM-PAC Score With Stairs : 16 (06/05/23 1030) Caregiver Information Patient Contacts Name Relation Home Work Mobile Emmie Dash Spouse [phone] [employer] Adult Child [phone] Transition of Care Checklist Narrative: Participated in IDTs this morning. Patient plan to talk with oncology team tomorrow for potential therapy options. PM&R following for rehab recommendations. Patient's disposition plan will depend on his clinical course. Palliative medicine also following. SW remains available to offer support and assistance as appropriate. Anticipated Transportation at Discharge: pending course Patient/Family Expectations: define goals of care Transition Planning Transition Planning Transition Plan/Considerations: Needs identified - Discharge planning services explained to patientfamily / caregiver - Choices offered;CM provided contact information and will update plan as needs arise;Discussed at Interdisciplinary Team / Boost Rounds (05/28/231408) Transition services explained and patient/family/caregiver agreeable: Alf (05/28/231408) Transition planning services explained and patient/family/caregiver agreeable: List of SNFs by [facility] that participate in Medicare programs provided and reviewed with patient and caregiver (05/30/23939) [facility] Quality Rating provided to patient: Yes (05/30/23939) Repisodic Choice provided to patient: Yes (05/30/23939) Transition plan discussed with - Enter name and phone #: Spouse (05/30/23939) Insurance Considerations: Therapy documentation needed for precert request (05/28/23 140) Referral to Community Agency : N/A (05/28/231408) Post-Acute Care needs identified and Referrals Completed: Tracheostomy Care;Physical Therapy;Occupational Therapy (05/28/231408) Agency Choice Due to: Care previously established (05/28/231408) Additional Considerations: none Care Management will continue to monitor and assist with discharge planning needs * Ancillary Progress Note - Nelli Juárez CCC-HAND CARVER - 06/05/2023 9:29 AM EST PROGRESS NOTE - Speech-Language Pathology [facility] [place] [address] Name: Farhad Dash Jr. Location: [facility] A459/A Date: 06/05/2023 Time: 9:29 AM Patient Status: Inpatient Insurance: Payor: MEDICARE / Plan: MEDICARE A AND B / Product Type: *No Product type* / Patient Age: [age] year old Pt scheduled for Modified Barium Swallow Study (MBSS) this date @ 1330. Nsg (Chloé) notified of same at this time. 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 CT chest abdomen pelvis did not reveal any additional lesions concerning for metastatic disease with staging of [id number]. Was discussed in the tumor board today and imaging suggestive of locally destructive and erosive lesion abutting the thyroid cartilage and there is a possible chondral necrosis of the cricoid. Surgical option would require total laryngectomy, esophagectomy with gastric pull up and would be challenging given his comorbidities. Consensus was to discuss with Medical Oncology and Radiation Oncology. Patient upset today and doesn't want to talk to medical oncology team. He wants us to meet him whenwife is here tomorrow between 11 AM to 3 PM. Will evaluate him tomorrow to discuss about potential chemo RT/systemic therapy/ RT. Plan to discuss with Radiation Oncology tomorrow. Will send PDL1, NGSin the meantime. Full consult to follow tomorrow Discussed with * Ancillary Progress Note - Nelli Fischer PTA - 06/04/2023 4:26 PM EST PROGRESS NOTE - Physical Therapy [facility] [address] Name: Farhad Dash JrFarzana Location: [facility] A459/A Date: 06/04/2023 Time: 4:26 PM Attempted to see pt for treatment however physicians entered room to speak with pt just as we were about to begin. Will continue to follow pt as appropriate. * Ancillary Progress Note - Nelli Fischer PTA - 06/04/2023 4:00 PM EST PROGRESS NOTE - Physical Therapy [address] [place] [address] Name: Farhad Dash Jr. Location: [facility] A459/A Date: 06/04/2023 Time: 4:27 PM Attempted to see pt for treatment however upon arriving at his room speech was present giving a treatment. Will continue to follow pt as appropriate. * Ancillary Progress Note - Georgia Bateman COTA - 06/04/2023 3:24 PM EST PROGRESS NOTE - Occupational Therapy [address] [address] Name: Farhad Dash Jr. Location: [facility] A459/A Date: 06/04/2023 Time: 3:35 PM Farhad Dash Jr. is a 82 year old male. Patient Status: Inpatient Insurance: Payor: MEDICARE Plan: MEDICARE A AND B Product Type: *No Product type* Payor: [employer] Plan: [employer] Product Type: *No Product type* Patient Seen: at bedside, nursing cleared patient for therapy Patient Identified By: Name, ID Band and Date Diagnosis: stridor (06/04/231228) Status of treatment: Treatment completed (06/04/231228) Orders: OT evaluation and treatment;OT OOB (06/04/231228) Weight Bearing Status: Weight bearing as tolerated (06/04/231228) Precautions: Alarms;Falls;Safety;Oxygen;Trach (06/04/231228) Total Treatment Time: 18 (06/04/231228) Subjective: Patient agreeable to therapy Pain: No complaints Observations Consciousness: Alert (06/04/231228) Orientation: Oriented times 4 (06/04/231228) Cognitive Limitations: Processing (06/04/231228) Psychosocial: Patient can communicate basic needs (06/04/231228) Sitting posture: Forward head;Rounded shoulders (06/04/231228) Standing posture: Forward head;Rounded shoulders (06/04/231228) Safety awareness: Needs cueing supervision. (06/04/231228) Other Findings Endurance: Functional activity;Poor (06/04/231228) Coordination: Intact (05/31/23 115) Current Functional Status: Activities of Daily Living: Dressing Upper Body: Not Tested (06/04/231228) Lower Body: Not Tested (06/04/231228) Functional Ambulation Assistive Device: No device (06/04/231228) Distance in feet:: 0 (06/04/231228) Level of Assistance: Not Tested (06/04/231228) Bed Mobility Roll (Left): Supervision (with rail) (06/04/231228) Supine-Sit: Minimal Assistance (06/04/231228) Sit-Supine: Minimal Assistance (X2) (06/04/231228) OT Transfers Sit-Stand: Not Tested (06/04/231228) Stand-Sit: Not Tested (06/04/231228) Bed-Chair: Not Tested (06/04/231228) Balance Sit (Static): Fair (06/04/231228) Sit (Dynamic): (Fair -) (01/17/24 1229) Stand (Static): Not Tested (06/04/231228) Stand (Dynamic): Not Tested (06/04/231228) Patient Education Education Topic: Role of OT;Plan of care goals (06/04/231228) Review of Precautions: Safety;Fall (06/04/231228) Barriers to learning: Medical status (06/04/231228) Preferred learning method: Combination (06/04/231228) Alarm Status Patient positioned in: Bed (06/04/231228) With: Bed alarm intact and functioning and call palomo in reach (06/04/231228) Treatment Provided: Therapeutic Activity: 18 minutes Deficits requiring O.T. treatment needs: Balance;Endurance;ADL/self- care;Functional mobility;Safety;Upper extremity strength;Weakness (06/04/231228) Assessment: Patient was found laying supine in bed upon arrival to room; Trach collar; pleasant andcooperative. Patient requesting to have to go to the bathroom. Primary nurse in room available to assist therapist to transfer to bedside commode if required as patient was not out of bed in a few days. Continues to require Min A 1-2 people for bed mobility; once he was seated edge of bed, patient c/o of dizziness; blood pressure obtained reading 83/47; 2nd blood pressure obtained 5-6 minutes after as patient remained sitting edge of bed with dizziness not subsiding, blood pressure reading 84/51; therapist and primary nurse discussed transfer to bedside commode not safe at this time due to hypotension therefore patient was returned to supine safely and patient was assisted onto bed wheeler. Blood pressure in supine 106/62. C/o of dizziness subside. Further activity deferred at this time. Please consider post-acute care services which may include home health, usp, outpatient therapy or inpatient rehabilitation. The level of care will be determined in collaboration with patient,family/caregiver and care team members. Plan:Will continue to follow patient per plan of care. Anticipated Frequency (on eval): 1 to 3 times per week (06/04/231228) AM-PAC Help From Another Person Eating Meals: A little (05/31/23 115) Help From Another Person Taking Care of Personal Grooming: A little (05/31/23 115) Help From Another Person To Put On/Take Off Upper Body Clothing: A little (05/31/231156) Help From Another Person To Put On/Take Off Lower Body Clothing: A lot (05/31/231156) Help From Another Person Toileting: A lot (05/31/231156) Help From Another Person Bathing: A lot (05/31/231156) OT AM-PAC Score: 15 (05/31/23 115) OT AM-PAC t-Scale Score: 34.69 (05/31/231156) HLM (Highest Level of Mobility) Goal: Level 4 move to chair/commode (06/04/23 1300) AM-PAC assessment not scored at this time . Please refer to future AM-PAC calculations of functional mobility as they become available. * Ancillary Progress Note - Nelli Juárez CCC-HAND CARVER - 06/04/2023 3:00 PM EST I, Nelli Juárez, was present in the room and actively engaged in the service(s) mentioned below. Criselda Mejía was also present and participated in the care of the patient. I have read the note below and agree with the results and recommendations made by Criselda Mejía. Nelli Juárez M.S., [facility]-HAND CARVER Speech-Language Pathologist Acute Care Rehab- [facility] PROGRESS NOTE - Speech-Language Pathology [facility] [place] [address] Name: Farhad Dash JrFarzana Location: [facility] A459/A Date: 06/04/2023 Time: 4:13 PM Patient Status: Inpatient Insurance: Payor: MEDICARE / Plan: MEDICARE A AND B / Product Type: *No Product type* / Patient Age: [age] year old Pt seen this date for dysphagia tx. Pt last seen by ST on 05/30/23 with recommendations for NPO. Upon clinician entry to room, pt was awake and alert in his chair. He was repositioned to an upright position prior to any PO trials given. He remained awake and alert. Pt was given trials of thin liquids via teaspoon. Oral phase WFL Pharyngeal phase inferred. Pt demonstrated with cough x1 on trials of thin liquids. Pharyngeal phase dysphagia suspected. Pt would benefit from MBSS given dx and new trach placement. Recommend maintain NPO Non-oral medications Frequent oral care for comfort and hygiene Following thorough oral care, allow for single tsps of thin water for comfort, to be provided only as pt is fully awake and alert Recommend Modified Barium Swallow Study (MBSS) pending scheduling availability [facility] Coordinator Clinician * Progress Notes - Non-Billable - Annmarie Romero MD - 06/04/2023 11:18 AM EST Remote chart review - patient not seen Farhad is a 82 year old male with PMH of laryngeal cancer s/p radiation 2005, diabetes, GERD, hld, htn, [place] who presented to [facility] ED for worsening stridor with bilateral VF immobility and 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 Now s/p direct laryngoscopy, esophagoscopy and biopsy; tracheotomy on05/28/[address] De La Rosa. First trach change performed 06/03/2023. Endocrinology consulted for management of hyperglycemia. Lab Results Component Value Date/Time HEMOGLOBIN A1C - [facility] 6.0 (H) 05/27/2023 05:25 AM PROFESSIONAL DRIVER REGIMEN: Metformin 1000 mg BID Current regimen: Lantus Novolog Q4 hrs for tube feeding: for nutren 1.5 30-60 ml per hr 151-200 1 unit 201-250 2 units 251-300 2 units 351-400 3 units 401-450 3 units On tube feeding Nutren 1.5 95 ml per hr Plan: Continue lantus 10 units hs Change novlog Q4 hrs : 1 unit : 30 ml per hr Nutren 1.5 + 251-350 1 unit 351-450 2 units Annmarie Romero MD * Care Plan - Chloé Sepulveda RN - 06/04/2023 5:26 AM EST Clinical Goal(s): turn, repos (06/03/231999) Possible barriers to meeting goal(s)/advancing plan of care: deconditioning, fatigue, weakness Stability of the patient: Moderately stable - low risk of patient condition declining or worsening Summary regarding today's goal(s): Met: patient was encouraged to turn and reposition to maintain skin integrity Recommendations: continue current treatment plan * Care Plan - Shira Yeager RN - 06/03/2023 7:36 PM EST Clinical Goal(s): pt will get OOB to chair by the end of shift. (06/03/23 0800) Possible barriers to meeting goal(s)/advancing plan of care: Pain, lack of motivation d/t updated diagnosis Stability of the patient: Moderately unstable - medium risk of patient condition declining or worsening Summary regarding today's goal(s): Met: Pt tolerated being OOB for a period of time today Recommendations: Continue to encourage OOB activities and emotional support * Care Plan - Chloé Sepulveda RN - 06/03/2023 6:28 AM EST Clinical Goal(s): turn, repos (06/02/231999) Possible barriers to meeting goal(s)/advancing plan of care: pain, weakness, deconditioning, fatigue, shortness of breath Stability of the patient: Moderately stable - low risk of patient condition declining or worsening Summary regarding today's goal(s): Met: patient was turned and repositioned to maintain skin integrity Recommendations: continue current treatment plan * Care Plan - Chloé Sepulveda RN - 06/03/2023 5:06 AM EST Clinical Goal(s): turn, repos (06/02/231999) Possible barriers to meeting goal(s)/advancing plan of care: weakness, deconditioning, fatigue Stability of the patient: Moderately stable - low risk of patient condition declining or worsening Summary regarding today's goal(s): Met: patient was turned and repositioned to maintain skin integrity Recommendations: continue current treatment plan * Diagnostic Clarification - Warner Michael MD - 06/02/2023 11:47 AM EST - Stage 2 pressure ulcer * Ancillary Progress Note - Patti Tyler RDN - 06/02/2023 11:44 AM EST CLINICAL NUTRITION CONSULT/PROGRESS NOTE [facility] [address] Name: Farhad Dash Jr. Location: [facility] A459/A Date: 06/02/2023 Time: 11:00 AM How patient was identified (select 2): Wristband and Name Discussed in interdisciplinary rounds: No Farhad Dash Jr. is a 82 year old male being seen for follow-up Primary Diagnosis: stridor with airway compromise and laryngeal cancer. PMHx type 2 DM Other pertinent information: Patient sitting in chair. Family present and able to answer some questions. Patient has had extended admissions to hospital or rehab since February 2023 per family. Tolerating TF well. Per nursing TF are now being cycled. NUTRITION ASSESSMENT: Past medical/surgical history and medications reviewed. Food/Nutrition-Related History Nutrition Support: Enteral Nutren 1.5 @ 95 mL/hr x 14 hrs. Provides 1995 Kcal, 90 g protein and 1010 mL free water Diet: NPO Previously followed diet: tube feeding: Jevity 1.5 at 55 ml/hr over 22 hours ( 1210 ml,1815 kcal, 77 gm protein and 919.6 ml free water ) per paper chart Food Allergies/Intolerances: none Adult Energy Intake: No significant decrease Pertinent medications/vitamins/minerals/supplements: colace, novolog, lantus, levoxyl, prilosec, senna Pertinent Biochemical Data: Nutrition related labs reviewed. There are no biochemical abnormalitiesrequiring a change in the nutrition plan of care at this time. Nutrition-Focused Physical Findings: Appearance: Thin Respiratory support: Supplemental O2 Delivery: Trach Collar/Mask Nasal/Oral: Swallow function, compromised or painful Digestive: No issues identified Last Bowel Movement: 06/02/23 (06/02/23 0200) Cognition: Awake, alert and Oriented Skin: stage 2 pressure injury-sacrum Enteral access: G/J Tube Nutrition Focused Physical Exam: NFPE completed on 05/27/23 Subcutaneous Fat Loss: Orbital fat pads: Severe Buccal fat: Unable to assess Tricep: Severe Muscle Loss: Temples: Moderate Clavicles: Severe Shoulders: Severe Interosseous: Moderate Quadriceps: Severe Anthropometrics Measurements Height: 177.8 cm (5' 10") (05/27/23799) Admission weight: 69.2 kg Weight: 73.2 kg (161 lb 6 oz) (06/02/23799) BMI: 21.86 (05/27/23799) Usual Body Weight: 74.8 kg in Feb 2023 at MD office visit [place] weight: 78.7 kg [place] Weight Based on BMI: 24.9 Interpretation of Weight Change Prior to Admission: 7.5% weight loss in 3 months (Moderate) Weight Changes Since Admission: weight gain Nutrition Prescription: Energy needs: 25-30 Kcal/kg Kcal/day: 0913-5466 Based on admission weight Protein needs: 1.25-1.5 gm/kg Protein: 86-103 Based on admission weight Fluid needs: 25 ml/kg Fluid: 1730 ml/day Based on admission weight Malnutrition: Malnutrition Present: Yes (05/27/231134) Adult Malnutrition Classification: Severe (05/27/23 113) Malnutrition Characteristics: Fat loss;Muscle loss;Weight loss (05/27/23 113) NUTRITION DIAGNOSIS: Malnutrition severe related to chronic illness as evidenced by 7.5% weight loss x 3 months, severe fat loss, and severe muscle loss. Swallowing difficulty related to Laryngeal SCC as evidenced by NPO and prison need for non oral route of nutrition Increase protein needs related to wound healing as evidenced by stage 2 pressure injury to sacrum Goals: Continue to tolerate enteral feeding at current goal rate Previous diagnosis/Goals: Resolved--Initiation of enteral nutrition within 24-48 hours. NUTRITION INTERVENTION/PLAN: Continue to monitor NPO/clear liquid status Continue to monitor nutrition support Clinical Nutrition Recommendations: 1. Continue current TF of Nutren 1.5 @ 95 mL/hr x 14 hrs ( Provides 1995 Kcal, 90 g protein and 1010 mL free water. 2. levothyroxine (tube feeds, if required, need to be held 1 hour before and after medication administration) 3. Free water flushes 200 mL Q6H ( maintenance) NUTRITION MONITORING AND EVALUATION: NPO status/diet advancement and tolerance GI tolerance for enteral nutrition Lab values warranting change with MNT Weight for trends Plan follow-up: Will follow and adjust nutrition plan of care as medical condition requires. Please contact for change(s) in patient condition requiring earlier intervention. Patti Tyler, MS, RD, LDN, FNKF Clinical Dietitian [facility] Extension: [phone] [place] Text * Ancillary Progress Note - Vivi Storm LSW - 06/02/2023 9:52 AM EST CARE MANAGEMENT - ADULT TRANSITION NOTE [address] [address] Name: Farhad Mariann Ekta Nuñez Location: [facility] A459/A Date: 06/02/2023 Time: 9:52 AM Risk Stratification Risk Stratification Psycho Social / Medical Concerns Identified: Adjustment to illness/injury;Multiple Comorbidities (05/28/231403) Accessed Neighborly to connect patients to social care resources: No (05/28/231403) OBRA or OPTIONS needed for placement: No (05/28/231403) Readmission Risk Score: 18.9 (06/02/23 0800) AM-PAC Score With Stairs : 15 (06/02/23 0800) Caregiver Information Patient Contacts Name Relation Home Work Mobile Emmie Dash Spouse [phone] [place] Adult Child [phone] Transition of Care Checklist Narrative: SW participated in IDT rounds this morning. Patient remains in ICU written for medsurg. Newly placed trach would be a barrier to timely discharge to SNF as most SNFs are unwilling to take fresh trach; however, will explore IRF options with patient and his spouse. Patient has participatedwith therapy and ambulated min assist. Team may request PMR to aid in determining appropriate disposition. SW will continue to follow. Anticipated Transportation at Discharge: ALS (new trach) Patient/Family Expectations: rehab Transition Planning Transition Planning Transition Plan/Considerations: Needs identified - Discharge planning services explained to patientfamily / caregiver - Choices offered;CM provided contact information and will update plan as needs arise;Discussed at Interdisciplinary Team / Boost Rounds (05/28/231408) Transition services explained and patient/family/caregiver agreeable: Alf (05/28/231408) Transition planning services explained and patient/family/caregiver agreeable: List of SNFs by [facility] that participate in Medicare programs provided and reviewed with patient and caregiver (05/30/23939) [facility] Quality Rating provided to patient: Yes (05/30/23939) Repisodic Choice provided to patient: Yes (05/30/23939) Transition plan discussed with - Enter name and phone #: Spouse (05/30/23939) Insurance Considerations: Therapy documentation needed for precert request (05/28/231408) Referral to Community Agency : N/A (05/28/231408) Post-Acute Care needs identified and Referrals Completed: Tracheostomy Care;Physical Therapy;Occupational Therapy (05/28/231408) Agency Choice Due to: Care previously established (05/28/231408) Additional Considerations: none Care Management will continue to monitor and assist with discharge planning needs * Care Plan - Ping Paula RN - 06/02/2023 3:30 AM EST Clinical Goal(s): Adequate sleep throughout night (06/01/23 2300) Possible barriers to meeting goal(s)/advancing plan of care: noise Stability of the patient: Moderately stable - low risk of patient condition declining or worsening Summary regarding today's goal(s): Met: Reported adequate sleep throughout night Recommendations: Continue with sleep protocol * Care Plan - Ping Paula RN - 06/01/2023 3:46 AM EST Clinical Goal(s): Adequate sleep throughout night (05/31/23 2300) Possible barriers to meeting goal(s)/advancing plan of care: noise Stability of the patient: Moderately stable - low risk of patient condition declining or worsening Summary regarding today's goal(s): Met: Reported adequate sleep throughout night Recommendations: Continue with sleep protocol, clustering care, and maintaining quiet environment * Care Plan - Ping Paula RN - 05/31/2023 3:43 AM EST Clinical Goal(s): Oxygen >92% throughout shift (05/30/232199) Possible barriers to meeting goal(s)/advancing plan of care: unable to clear secretions Stability of the patient: Moderately unstable - medium risk of patient condition declining or worsening Summary regarding today's goal(s): Met: oxygen >92% throughout shift Recommendations: Continue with humidified oxygen and suctioning as needed, encourage to cough and deep breathe * Ancillary Progress Note - Lizeth Moran MSW - 05/30/2023 9:36 AM EST POST ACUTE CARE CARE MANAGEMENT [facility] [place] [address] Name: Farhad Dash JrFarzana Location: [facility] A457/A Date: 05/30/2023 Time: 9:42 AM Post-Acute Care Patient General Information Living Quarters: Alf Facility (SNF for short term rehab, with spouse at home prior) (05/28/231403) Location of bathroom(s): All floors or Single story dwelling (05/28/231403) History of falling: No (05/30/23 0800) What was your living situation prior to admission/observation?: At a Intermediate (05/28/231403) Do you have any children, pets, or other dependents that you are currently caring for?: No (05/28/231403) AM-PAC Score With Stairs : 15 (05/29/232219) Post-Acute Care with AM-PAC < 17.99 Rehab diagnosis: Does not meet criteria (05/30/23941) Alf Facility (SNF) Guidelines For Medical Approval (must select both): Care must be provided by an RN/RAISE DRILL OPERATOR and cannot be managed at home;Care requires observation, monitoring and evaluation of effectiveness on a daily basis (05/30/23941) SNF guidelines for Rehab Approval (All selections required): Able to participate for at least 1 hour of therapy per day;One or more therapy modalities (PT/OT/ST) at least 5 times a week;Requries Training (select at least one);Services required only able to be provided in an inpatient setting;Frequent re-assessment of established rehabilitative progress;Requires intense care planning with realistic goals as identified by 1 of the following;Established rehabilitative progress;Frequent monitoring and or revision of treatment plan (05/30/23941) Therapy Modalities: Physical Therapy;Occupational Therapy;Speech Therapy (05/30/23941) Intense Care Plan Goals: Family medication and/or transfer training (05/30/23941) SNF Required Training: Gait training;Transfer Training;ADL training, with or without adaptive equipment;Speech therapy for cognitive training in conjunction with 1 additional modality (05/30/23941) Approved for Alf Rehab: Approved for Alf Rehab (05/30/23941) Pt s/p teodoro olea. From [facility] however, spoke with [facility] in admissions, they can not accommodate. SW called and spoke with spouse, reviewed reposodic list of facilities. Spouse only agreeable to [facility]. [facility]ed [facility] availability and possible need for additional referrals. * Care Plan - Shannan Malave RN - 05/30/2023 6:57 AM EST Clinical Goal(s): Pt will maintain SpO2 >90% (05/29/23 2300) Possible barriers to meeting goal(s)/advancing plan of care: tracheostomy secretions, fresh tracheostomy Stability of the patient: Moderately stable - low risk of patient condition declining or worsening Summary regarding today's goal(s): Met: Pt maintained SpO2 >90% Recommendations: Continue to promote and complete respiratory interventions such as cough & deep breathe, and suction * Care Plan - Melanie Sena LPN - 05/29/2023 6:49 PM EST Clinical Goal(s): pt to maintain pulse ox >90% (05/29/23 1500) Possible barriers to meeting goal(s)/advancing plan of care: pt condition Stability of the patient: Moderately stable - low risk of patient condition declining or worsening Summary regarding today's goal(s): Met: pt maintained pulse ox >90% Recommendations: O2 @ 5L; 28%. * Ancillary Progress Note - Criselda Mejía SLP Student - 05/29/2023 11:03 AM EST PROGRESS NOTE - Speech-Language Pathology [address] [address] Name: Farhad Mariann Ekta Nuñez Location: [facility] A456/A Date: 05/29/2023 Time: 11:03 AM Patient Status: Inpatient Insurance: Payor: MEDICARE / Plan: MEDICARE A AND B / Product Type: *No Product type* / Patient Age: [age] year old Consult received and appreciated. Attempted to see pt for ST evaluation at this time. Will hold on swallow eval pending ENT clearance for cuff deflation. Discussed same with CCM. Will f/u as pt is available/appropriate, and as able. Angel Ochoa Health Service Coordinator Clinician * Respiratory Progress Note - Isa Reza RRT-RESEARCH ASSOC - 05/26/2023 8:53 PM EST PATIENT DRIVEN PROTOCOL - Respiratory Care Services [address] [address] Name: Farhad Dash Jr. Location: [facility] A456/ Date: 05/26/2023 Time: 8:54 PM Patient Driven Protocol Summary: Initial evaluation performed. This Treatment Plan and medications will be reviewed by the Primary Care Team for any contraindications. Respiratory Care Treatment Plan Aerosol Therapy Treatment:: Hand Held Nebulizer Tx PRN with Racemic Epinephrine: 5.625 mg / 0.25 ml. to reduce work of breathing and improve pulmonary gas exchange. . Pulmonary Volume Expansion Therapy: Deep Breathing/Cough PRN to prevent or treat alveolar consolidation and atelectasis. . Secretion Management Treatment: CPT QID to enhance mobilization of secretions. . Patient became stridorous with stimulation. Patient with neck mass. CDB only. CPT to keep or clear lungs. Tracheostomy tomorrow on 05/27. The patient will be re-evaluated: No re-evaluation needed. Indications for treatment met. The Triage Level is: (Assessment Score = 6 -10) Level 4. Triage Level Definitions: Level 1 Severe Respiratory/Airway Compromise Level 2 Moderate Respiratory/Airway Compromise or high risk for pulmonary complications Level 3 Mild Respiratory/Airway Compromise or moderate risk for pulmonary complications Level 4 Episodic Respiratory/Airway Compromise or low risk for pulmonary complications Level 5 No Respiratory/Airway Compromise Triage 1 Triage 2 Triage 3 Triage 4 Triage 5 greater than 20 16 - 20 11 - 15 6 - 10 0 - 5 Medical Record Assessment Clinical Findings Pulmonary Status: 3 - Pulm Impairment (acute or chronic) w/o exacerbation, or 1 - 2 rib fractures Surgical Status: 0 - No Surgical History Chest X-Ray: 1 - Chronic Changes or CHF Assessment Score: 4 Patient Assessment Clinical Findings Respiratory Pattern: 0 - RR 12 - 20; Patient only gets breathless with strenuous exercise. Breath Sounds: 0 - Clear to auscultation Cough Effectiveness: 0 - Strong non-productive Sputum Production: 0 - No sputum production Level of Activity: 2 - Temporarily non-ambulatory O2 needed to keep SpO2 greater than or equal to 92%: 1 - Oxygen 1-3 LPM or FiO2 less than 35% Assessment Score: 3 Total Assessment Score: 7 Breath Sounds: Inspiratory and expiratory clear bilaterally.. Cough and Sputum: No cough was present.. CXR: Indeterminate opacity at the lateral right mid lung and base. This could reflect small loculated right pleural effusion, pneumonia, and/or scarring, given there are chronic right rib fractures that are new since 2009. There is also mild lateral left basilar opacity which could be inflammatory. Vital Signs: Resp: 14 (05/26/231899) Pulse: 91 (05/26/231899) Temp: 36.3 C (97.3 F) (05/26/231999) BP: 124/69 (05/26/231899) SpO2: 97 % (05/26/231899) PFT: Patient unable to perform Inspiratory Capacity. Reason: stridor when stimulated.. Primary Service: Critical Care White. Admitting Diagnosis: Stridor [R06.1] Pulmonary Diagnosis: laryngeal mass/ stridor . Prescriptions/Home Medications/Durable Medical Equipment: none per chart. Patient unable to confirm.. . * Medical Necessity - Sharon Santoyo, RN - 05/26/2023 4:42 PM EST AdmissionCare Guideline: Head and Neck Disease, Inpatient Based on the indications selected for the patient, the bed status of Admit to Inpatient was determined to be MET The following indications were selected as present at the time of evaluation of the patient: Stridor, laryngospasm, or tracheal obstruction requiring inpatient care, as indicated by 1 or more of the following: - Respiratory distress unresponsive to emergency management - Respiratory distress, as indicated by ALL of the following: - Patient with 1 or more of the following: - - Other evidence of difficulty breathing Evidence of respiratory compromise, as indicated by 1 or more of the following: - Hypoxemia, as indicated by 1 or more of the following: - - Patient with baseline need for supplemental oxygen who now requires increased supplemental oxygento maintain oxygenation at baseline or acceptable level - Head or Neck Disease condition, symptom, or finding for which observation care has failed or is not considered appropriate. See General Criteria: Observation Care, General Admission Criteria, or Pediatric General Admission Criteria guideline as appropriate. Additional Information: worsening stridor voice severely hoarse spo2 97 Humidified face tent bp 82/45 very low threshold for intubation AdmissionCare documentation entered by: Sharon Santoyo [facility], 27th edition, Copyright 2022 [facility] I AND [employer] All Rights Reserved. [id number]:00 Solely for purpose of utilization review and payment; not a diagnostic tool * ED Project Scheduler Note - Patrica Ascencio RN - 05/26/2023 2:55 PM EST Helium-oxygen placed at bedside per Dr. Causey. documented in this encounter Plan of Treatment Upcoming Encounters Date Type Department Care Team (Late st Contact Info) Description 07/30/2023 11:00 AM EDT Office Visit Hematology Oncology [facility] [address] [place] [address] Shannan Bermeo MD [address] [place] [address] Pending Results Name Type Priority Associated Diagnoses Date /Time ECHO, COMPLETE (2D), TRANS-THORACIC Echocardiology Routine Status post cardiac surgery 05/27/2023 10:30 AM EST MYGENVAR HEAD AND NECK NEOPLASM GENE PANEL, NEXT GENERATION SEQUENCING Lab Routine Pain 05/28/2023 2:22 PM EST Scheduled Orders Name Type Priority Associated Diagnoses Orde r Schedule EKG EKG STAT Screening for cardiovascular condition Perform Now for 1 Occurrences starting 05/26/2023 until 05/26/2023 ECHO, COMPLETE (2D), TRANS-THORACIC Echocardiology Routine Status post cardiac surgery One Time for 1 Occurrences starting 05/26/2023 until 05/26/2023 PD-L1 Lab Routine Pain 06/05/2023 until discontinued, 1 completed MYGENVAR HEAD AND NECK NEOPLASM GENE PANEL, NEXT GENERATION SEQUENCING Lab Routine Pain One Time for 1 Occurrences starting 06/06/2023 until 06/06/2023, 1 completed Health Maintenance Due Date Last Done Comments Depression Screening 1954 Diabetic Eye Exam 1960 Diabetic Foot Exam 1960 DTaP,Tdap,and Td Vaccines (1 - Tdap) 1961 Zoster Vaccines (1 of 2) 1992 Hepatitis B (1 of 3 - Risk 3-dose series) 2002 TSH 11/07/2021 11/07/2020 COVID-19 Vaccine ( season) 2023 02/13/2022 Pneumococcal Vaccine: 65+ Years Completed 11/13/2021, 04/13/2019, 04/05/2017 Influenza Vaccine (FLU shot) Completed 04/2023, 02/13/2022, 05/03/2021, Additional history exists GARDASIL-HPV IMMUNIZATION SERIES Aged Out No longer eligible based on patient's age to complete this topic MENINGOCOCCAL (MENACTRA/MENVEO) Aged Out No longer eligible based on patient's age to complete this topic documented as of this encounter Medical Devices Implanted Type Area Cabin Service Agent Device Identifier Shelf Expiration Date Model / Serial / Lot Lens Intraoc 20.5 - [id number] - [id number] Implanted:Qty: 1 on 06/27/2020 by Mason Hassan MD at OR [facility] Right: Eye [employer] 10/16/2024 [id number] / [id number] / [id number] Lens Intraoc 21.0 - [id number] - [id number] Implanted:Qty: 1 on 07/11/2020 by Mason Hassan MD at OR [facility] Left: Eye [employer] 02/15/2025 [id number] / [id number] / [id number] documented as of this encounter Procedures Procedure Name Priority Date/Time Associated Diagnosis Comments GLUCOSE METER, POINT OF CARE TITO 06/11/2023 11:55 AM EST GLUCOSE METER, POINT OF CARE TITO 06/11/2023 6:01 AM EST BASIC METABOLIC PANEL Routine 06/11/2023 5:22 AM EST PHOSPHORUS Routine 06/11/2023 5:22 AM EST CBC Routine 06/11/2023 5:22 AM EST MAGNESIUM STAT 06/11/2023 5:22 AM EST GLUCOSE METER, POINT OF CARE TITO 06/11/2023 12:08 AM EST GLUCOSE METER, POINT OF CARE TITO 06/10/2023 5:11 PM EST GLUCOSE METER, POINT OF CARE TITO 06/10/2023 4:54 PM EST GLUCOSE METER, POINT OF CARE TITO 06/10/2023 12:28 PM EST GLUCOSE METER, POINT OF CARE TITO 06/10/2023 8:07 AM EST GLUCOSE METER, POINT OF CARE TITO 06/10/2023 6:20 AM EST BASIC METABOLIC PANEL Routine 06/10/2023 3:37 AM EST PHOSPHORUS Routine 06/10/2023 3:37 AM EST CBC Routine 06/10/2023 3:37 AM EST MAGNESIUM STAT 06/10/2023 3:37 AM EST GLUCOSE METER, POINT OF CARE [facility] 06/10/2023 12:34 AM EST GLUCOSE METER, POINT OF CARE [facility] 06/09/2023 6:00 PM EST GLUCOSE METER, POINT OF CARE TITO 06/09/2023 5:52 PM EST GLUCOSE METER, POINT OF CARE TITO 06/09/2023 11:50 AM EST GLUCOSE METER, POINT OF CARE TITO 06/09/2023 5:59 AM EST BASIC METABOLIC PANEL Routine 06/09/2023 3:28 AM EST PHOSPHORUS Routine 06/09/2023 3:28 AM EST CBC Routine 06/09/2023 3:28 AM EST MAGNESIUM STAT 06/09/2023 3:28 AM EST GLUCOSE METER, POINT OF CARE TITO 06/08/2023 11:41 PM EST GLUCOSE METER, POINT OF CARE TITO 06/08/2023 5:22 PM EST GLUCOSE METER, POINT OF CARE TITO 06/08/2023 12:54 PM EST GLUCOSE METER, POINT OF CARE TITO 06/08/2023 6:16 AM EST BASIC METABOLIC PANEL Routine 06/08/2023 3:34 AM EST PHOSPHORUS Routine 06/08/2023 3:34 AM EST CBC Routine 06/08/2023 3:34 AM EST MAGNESIUM STAT 06/08/2023 3:34 AM EST GLUCOSE METER, POINT OF CARE TITO 06/08/2023 12:14 AM EST GLUCOSE METER, POINT OF CARE TITO 06/07/2023 5:44 PM EST GLUCOSE METER, POINT OF CARE TITO 06/07/2023 12:27 PM EST GLUCOSE METER, POINT OF CARE TITO 06/07/2023 5:51 AM EST BASIC METABOLIC PANEL Routine 06/07/2023 3:31 AM EST PHOSPHORUS Routine 06/07/2023 3:31 AM EST CBC Routine 06/07/2023 3:31 AM EST MAGNESIUM STAT 06/07/2023 3:31 AM EST GLUCOSE METER, POINT OF CARE TITO 06/06/2023 11:55 PM EST GLUCOSE METER, POINT OF CARE TITO 06/06/2023 6:05 PM EST GLUCOSE METER, POINT OF CARE TITO 06/06/2023 11:59 AM EST GLUCOSE METER, POINT OF CARE TITO 06/06/2023 5:44 AM EST BASIC METABOLIC PANEL Routine 06/06/2023 4:38 AM EST PHOSPHORUS Routine 06/06/2023 4:38 AM EST CBC Routine 06/06/2023 4:38 AM EST MAGNESIUM STAT 06/06/2023 4:38 AM EST GLUCOSE METER, POINT OF CARE [facility] 06/05/2023 11:42 PM EST GLUCOSE METER, POINT OF CARE TITO 06/05/2023 6:35 PM EST FLUORO SWALLOWING FUNCTION W VIDEO CINE Routine 06/05/2023 1:48 PM EST GLUCOSE METER, POINT OF CARE [facility] 06/05/2023 12:04 PM EST BASIC METABOLIC PANEL Routine 06/05/2023 4:47 AM EST PHOSPHORUS Routine 06/05/2023 4:47 AM EST CBC Routine 06/05/2023 4:47 AM EST MAGNESIUM STAT 06/05/2023 4:47 AM EST GLUCOSE METER, POINT OF CARE TITO 06/05/2023 4:05 AM EST GLUCOSE METER, POINT OF CARE TITO 06/05/2023 12:09 AM EST GLUCOSE METER, POINT OF CARE TITO 06/04/2023 8:21 PM EST GLUCOSE METER, POINT OF CARE TITO 06/04/2023 4:17 PM EST ANATOMIC PATHOLOGY (BM/SURGICAL/CYTOLOGY ) ADD ON REQUEST Routine 06/04/2023 3:26 PM EST GLUCOSE METER, POINT OF CARE TITO 06/04/2023 11:36 AM EST GLUCOSE METER, POINT OF CARE TITO 06/04/2023 7:47 AM EST HEPATIC FUNCTION PANEL Routine 06/04/2023 4:34 AM EST BASIC METABOLIC PANEL Routine 06/04/2023 4:34 AM EST PHOSPHORUS Routine 06/04/2023 4:34 AM EST CALCIUM, IONIZED, WHOLE BLOOD Routine 06/04/2023 4:34 AM EST CBC Routine 06/04/2023 4:34 AM EST MAGNESIUM STAT 06/04/2023 4:34 AM EST GLUCOSE METER, POINT OF CARE [facility] 06/04/2023 4:03 AM EST GLUCOSE METER, POINT OF CARE TITO 06/04/2023 12:01 AM EST GLUCOSE METER, POINT OF CARE TITO 06/03/2023 5:14 PM EST GLUCOSE METER, POINT OF CARE TITO 06/03/2023 11:[address] CHEST/ABDOMEN/PELVIS WITH IV CONTRAST WITHOUT ORAL CONTRAST Routine 06/03/2023 10:28 AM EST BASIC METABOLIC PANEL Routine 06/03/2023 6:17 AM EST PHOSPHORUS Routine 06/03/2023 6:17 AM EST CBC Routine 06/03/2023 6:17 AM EST MAGNESIUM STAT 06/03/2023 6:17 AM EST GLUCOSE METER, POINT OF CARE TITO 06/03/2023 6:12 AM EST GLUCOSE METER, POINT OF CARE TITO 06/02/2023 11:12 PM EST GLUCOSE METER, POINT OF CARE TITO 06/02/2023 5:42 PM EST GLUCOSE METER, POINT OF CARE TITO 06/02/2023 12:49 PM EST GLUCOSE METER, POINT OF CARE TITO 06/02/2023 5:18 AM EST BASIC METABOLIC PANEL Routine 06/02/2023 4:37 AM EST PHOSPHORUS Routine 06/02/2023 4:37 AM EST CBC Routine 06/02/2023 4:37 AM EST MAGNESIUM STAT 06/02/2023 4:37 AM EST GLUCOSE METER, POINT OF CARE TITO 06/01/2023 11:18 PM EST GLUCOSE METER, POINT OF CARE TITO 06/01/2023 5:14 PM EST GLUCOSE METER, POINT OF CARE TITO 06/01/2023 11:28 AM EST GLUCOSE METER, POINT OF CARE TITO 06/01/2023 5:07 AM EST BASIC METABOLIC PANEL Routine 06/01/2023 4:44 AM EST PHOSPHORUS Routine 06/01/2023 4:44 AM EST CBC Routine 06/01/2023 4:44 AM EST MAGNESIUM STAT 06/01/2023 4:44 AM EST GLUCOSE METER, POINT OF CARE TITO 06/01/2023 12:40 AM EST GLUCOSE METER, POINT OF CARE TITO 05/31/2023 5:05 PM EST GLUCOSE METER, POINT OF CARE TITO 05/31/2023 11:36 AM EST GLUCOSE METER, POINT OF CARE TITO 05/31/2023 5:12 AM EST BASIC METABOLIC PANEL Routine 05/31/2023 5:01 AM EST PHOSPHORUS Routine 05/31/2023 5:01 AM EST CBC Routine 05/31/2023 5:01 AM EST MAGNESIUM STAT 05/31/2023 5:01 AM EST GLUCOSE METER, POINT OF CARE TITO 05/30/2023 11:56 PM EST GLUCOSE METER, POINT OF CARE TITO 05/30/2023 5:10 PM EST GLUCOSE METER, POINT OF CARE TITO 05/30/2023 11:53 AM EST GLUCOSE METER, POINT OF CARE TITO 05/30/2023 5:38 AM EST BASIC METABOLIC PANEL Routine 05/30/2023 4:47 AM EST PHOSPHORUS Routine 05/30/2023 4:47 AM EST CBC Routine 05/30/2023 4:47 AM EST MAGNESIUM STAT 05/30/2023 4:47 AM EST GLUCOSE METER, POINT OF CARE TITO 05/30/2023 12:07 AM EST GLUCOSE METER, POINT OF CARE [facility] 05/29/2023 5:56 PM EST QUANTIFERON TB GOLD PLUS Routine 05/29/2023 4:08 PM EST GLUCOSE METER, POINT OF CARE TITO 05/29/2023 12:05 PM EST GLUCOSE METER, POINT OF CARE [facility] 05/29/2023 5:48 AM EST RETICULOCYTE PANEL Add-on 05/29/2023 4: 32 AM EST BASIC METABOLIC PANEL Routine 05/29/2023 4:32 AM EST IRON SCREEN, INCLUDING TIBC Add-on 05/29/2023 4:32 AM EST PHOSPHORUS Routine 05/29/2023 4:32 AM EST CBC Routine 05/29/2023 4:32 AM EST MAGNESIUM STAT 05/29/2023 4:32 AM EST FERRITIN Add-on 05/29/2023 4:32 AM EST GLUCOSE METER, POINT OF CARE [facility] 05/29/2023 12:18 AM EST GLUCOSE METER, POINT OF CARE [facility] 05/28/2023 5:15 PM EST XR CHEST 1 VIEW STAT 05/28/2023 3:13 PM EST PD-L1 Routine 05/28/2023 2:22 PM EST Pain SURGICAL PATHOLOGY Routine 05/28/2023 2: 22 PM EST Pain LARYNGOSCOPY/DILATION 05/28/2023 12:11 PM EST Pain Incision of Windpipe, Planned 05/28/2023 12:11 PM EST Pain GLUCOSE METER, POINT OF CARE TITO 05/28/2023 11:37 AM EST GLUCOSE METER, POINT OF CARE [facility] 05/28/2023 7:55 AM EST GLUCOSE METER, POINT OF CARE TITO 05/28/2023 5:45 AM EST BASIC METABOLIC PANEL Routine 05/28/2023 5:45 AM EST PHOSPHORUS Routine 05/28/2023 5:45 AM EST CBC Routine 05/28/2023 5:45 AM EST MAGNESIUM STAT 05/28/2023 5:45 AM EST GLUCOSE METER, POINT OF CARE [facility] 05/27/2023 11:54 PM EST GLUCOSE METER, POINT OF CARE [facility] 05/27/2023 6:19 PM EST GLUCOSE METER, POINT OF CARE [facility] 05/27/2023 12:03 PM EST GLUCOSE METER, POINT OF CARE [facility] 05/27/2023 7:33 AM EST GLUCOSE METER, POINT OF CARE [facility] 05/27/2023 5:32 AM EST HEMOGLOBIN A1C Routine 05/27/2023 5:25 AM EST BASIC METABOLIC PANEL Routine 05/27/2023 5:25 AM EST PHOSPHORUS Routine 05/27/2023 5:25 AM EST CBC Routine 05/27/2023 5:25 AM EST MAGNESIUM STAT 05/27/2023 5:25 AM EST GLUCOSE METER, POINT OF CARE TITO 05/26/2023 11:50 PM EST QUANTIFERON TB GOLD PLUS Routine 05/26/2023 6:22 PM EST GLUCOSE METER, POINT OF CARE TITO 05/26/2023 5:56 PM EST MRSA SCREEN, PCR Routine 05/26/2023 5:31 PM EST URINALYSIS, REFLEX TO MICROSCOPIC Routine 05/26/2023 5:[address] PULMONARY EMBOLUS W CONTRAST Routine 05/26/2023 4:[address] NECK W CONTRAST STAT 05/26/2023 4: 40 PM EST LACTATE STAT 05/26/2023 3:30 PM EST CULTURE, BLOOD Routine 05/26/2023 3:30 PM EST CULTURE, BLOOD STAT 05/26/2023 3:26 PM EST RESPIRATORY PATHOGEN PANEL, PCR STAT 05/26/2023 2:13 PM EST XR CHEST 1 VIEW STAT 05/26/2023 2:07 PM EST DIFFERENTIAL, AUTOMATED STAT 05/26/2023 1:59 PM EST BLOOD GAS, VENOUS STAT 05/26/2023 1:5 9 PM EST BASIC METABOLIC PANEL STAT 05/26/2023 1:59 PM EST CBC STAT 05/26/2023 1:59 PM EST CBC STAT 05/26/2023 1:59 PM EST documented in this encounter Results * (ABNORMAL) GLUCOSE METER, POINT OF CARE (06/11/2023 11:55 AM EST) Glucose Meter 148(H) 70 - 120 mg/dL 06/11/2023 12:08 PM EST [facility] Blood Whole blood specimen / Unknown 06/11/2023 11:55 AM EST 06/11/2023 12:08 PM EST Abimael De La Rosa DO LAB POINT OF CAR E TEST DOCKED DEVICE UNSOLICITED RESULTS [facility] [address] [place] [address] * GLUCOSE METER, POINT OF CARE (06/11/2023 6:01 AM EST) Glucose Meter 109 70 - 120 mg/dL 06/11/2023 2:40 PM EST [facility] Blood Whole blood specimen / Unknown 06/11/2023 6:01 AM EST 06/11/2023 2:40 PM EST Abimael De La Rosa DO LAB POINT OF CAR E TEST DOCKED DEVICE UNSOLICITED RESULTS [facility] [address] [place] [address] * PHOSPHORUS (06/11/2023 5:22 AM EST) Phosphorus 3.9 2.5 - 4.8 mg/dL 06/11/2023 6:04 AM EST LABORATORY [facility] Blood Venous blood specimen / Unknown Venipuncture / Unknown 06/11/2023 5:22 AM EST 06/11/2023 5:34 AM EST Warner Michael MD LAB BLOOD ORDERAB LES LABORATORY [facility] [address] [place] [address] * MAGNESIUM (06/11/2023 5:22 AM EST) Magnesium 2.2 1.5 - 2.6 mg/dL 06/11/2023 6:04 AM EST [facility] Blood Venous blood specimen / Unknown Venipuncture / Unknown 06/11/2023 5:22 AM EST 06/11/2023 5:34 AM EST Warner Michael MD LAB BLOOD ORDERAB LES Performing Organization Address City/State/[facility] Co de Phone Number [facility]ATORY [facility] [address] [place] [address] * (ABNORMAL) BASIC METABOLIC PANEL (06/11/2023 5:22 AM EST) BUN 22(H) 6 - 20 mg/dL 06/11/2023 6:04 AM EST [facility] Creatinine 0.6 0.6 - 1.2 mg/dL 06/11/2023 6:04 AM EST [facility] Estimated Glomerular Filtration Rate >90 >=60 mL/min 06/11/2023 6:04 AM EST [facility] Comment:eGFR is calculated b ased on the CKD-EPI 2020 equation Sodium 134(L) 135 - 146 mmol/L 06/11/2023 6:04 AM EST [facility] Potassium 4.5 3.5 - 5.1 mmol/L 06/11/2023 6:04 AM EST [facility] Chloride 97(L) 98 - 107 mmol/L 06/11/2023 6:04 AM EST [facility] CO2 29 22 - 32 mmol/L 06/11/2023 6:04 AM EST [facility] Anion Gap 8 7 - 15 mmol/L 06/11/2023 6:04 AM EST [facility] Glucose 109 70 - 120 mg/dL 06/11/2023 6:04 AM EST [facility] Calcium 8.4 8.4 - 10.2 mg/dL 06/11/2023 6:04 AM EST [facility] Blood Venous blood specimen / Unknown Venipuncture / Unknown 06/11/2023 5:22 AM EST 06/11/2023 5:34 AM EST Warner Michael MD LAB BLOOD ORDERAB LES [facility] [address] [place] [address] * (ABNORMAL) CBC (06/11/2023 5:22 AM EST) WBC 8.77 4.00 - 10.80 K/uL 06/11/2023 5:49 AM EST [facility] RBC 2.40 4.50 - 5.25 M/uL 06/11/2023 5:49 AM EST [facility] HGB 7.7(L) 14.0 - 16.8 g/dL 06/11/2023 5:49 AM EST [facility] HCT 24.0(L) 40.0 - 48.4 % 06/11/2023 5:49 AM EST [facility] MCV 100.0 82.0 - 99.5 fL 06/11/2023 5:49 AM EST [facility] MCH 32.1 27.0 - 34.0 pg 06/11/2023 5:49 AM EST [facility] MCHC 32.1 32.0 - 36.0 g/dL 06/11/2023 5:49 AM EST [facility] RDW 16.2 11.5 - 15.5 % 06/11/2023 5:49 AM EST [facility] PLT 263 140 - 400 K/uL 06/11/2023 5:49 AM EST [facility] MPV 8.9 6.6 - 11.1 fL 06/11/2023 5:49 AM EST [facility] nRBCs 0 <=0 /100 WBCs 06/11/2023 5:49 AM EST [facility] Blood Venous blood specimen / Unknown Venipuncture / Unknown 06/11/2023 5:22 AM EST 06/11/2023 5:34 AM EST Warner Michael MD LAB BLOOD ORDERAB LES [facility] [address] [place] [address] * (ABNORMAL) GLUCOSE METER, POINT OF CARE (06/11/2023 12:08 AM EST) Glucose Meter 172(H) 70 - 120 mg/dL 06/11/2023 12:10 AM EST [facility] Blood Whole blood specimen / Unknown 06/11/2023 12:08 AM EST 06/11/2023 12:10 AM EST Abimael De La Rosa DO LAB POINT OF CAR E TEST DOCKED DEVICE UNSOLICITED RESULTS [facility] [address] [place] [address] * (ABNORMAL) GLUCOSE METER, POINT OF CARE (06/10/2023 5:11 PM EST) Glucose Meter 148(H) 70 - 120 mg/dL 06/10/2023 5:14 PM EST [facility] Blood Whole blood specimen / Unknown 06/10/2023 5:11 PM EST 06/10/2023 5:14 PM EST Abimael Cook Rj DO LAB POINT OF CAR E TEST DOCKED DEVICE UNSOLICITED RESULTS Performing Organization Address City/[facility]/ZIP Co de Phone Number [facility] [address] [place] [address] * (ABNORMAL) GLUCOSE METER, POINT OF CARE (06/10/2023 4:54 PM EST) Glucose Meter 147(H) 70 - 120 mg/dL 06/10/2023 5:05 PM EST [facility] Blood Whole blood specimen / Unknown 06/10/2023 4:54 PM EST 06/10/2023 5:05 PM EST Abimael Cook Rj DO LAB POINT OF CAR E TEST DOCKED DEVICE UNSOLICITED RESULTS Performing Organization Address City/[facility]/ZIP Co de Phone Number [facility] [address] [place] [address] * (ABNORMAL) GLUCOSE METER, POINT OF CARE (06/10/2023 12:28 PM EST) Glucose Meter 124(H) 70 - 120 mg/dL 06/10/2023 2:45 PM EST [facility] [employer] Blood Whole blood specimen / Unknown 06/10/2023 12:28 PM EST 06/10/2023 2:45 PM EST Abimael Tinajerody DO LAB POINT OF CAR E TEST DOCKED DEVICE UNSOLICITED RESULTS Performing Organization Address City/[facility]/ZIP Co de Phone Number [facility] [address] [place] [address] * GLUCOSE METER, POINT OF CARE (06/10/2023 8:07 AM EST) Glucose Meter 116 70 - 120 mg/dL 06/10/2023 8:10 AM EST [facility] Blood Whole blood specimen / Unknown 06/10/2023 8:07 AM EST 06/10/2023 8:10 AM EST Abimael Cook Rj DO LAB POINT OF CAR E TEST DOCKED DEVICE UNSOLICITED RESULTS Performing Organization Address [facility] Co de Phone Number [facility] [address] [place] [address] * GLUCOSE METER, POINT OF CARE (06/10/2023 6:20 AM EST) Glucose Meter 110 70 - 120 mg/dL 06/10/2023 6:33 AM EST [facility] [employer] [facility] Blood Whole blood specimen / Unknown 06/10/2023 6:20 AM EST 06/10/2023 6:33 AM EST Abimael Cook Rj DO LAB POINT OF CAR E TEST DOCKED DEVICE UNSOLICITED RESULTS Performing Organization Address City/[facility]/ZIP Co de Phone Number [facility] [address] [place] [address] * PHOSPHORUS (06/10/2023 3:37 AM EST) Phosphorus 3.8 2.5 - 4.8 mg/dL 06/10/2023 4:17 AM EST [facility] Blood Venous blood specimen / Unknown Venipuncture / Unknown 06/10/2023 3:37 AM EST 06/10/2023 3:48 AM EST Warner Michael MD LAB BLOOD ORDERAB LES Performing Organization Address City/[facility]/ZIP Co de Phone Number [facility] [address] [place] [address] * MAGNESIUM (06/10/2023 3:37 AM EST) Magnesium 2.3 1.5 - 2.6 mg/dL 06/10/2023 4:17 AM EST [facility] Blood Venous blood specimen / Unknown Venipuncture / Unknown 06/10/2023 3:37 AM EST 06/10/2023 3:48 AM EST Warner Michael MD LAB BLOOD ORDERAB LES Performing Organization Address [facility] de Phone Number [facility] [address] [place] [address] * (ABNORMAL) BASIC METABOLIC PANEL (06/10/2023 3:37 AM EST) BUN 26(H) 6 - 20 mg/dL 06/10/2023 4:17 AM EST [facility] Creatinine 0.6 0.6 - 1.2 mg/dL 06/10/2023 4:17 AM EST [facility] Estimated Glomerular Filtration Rate >90 >=60 mL/min 06/10/2023 4:17 AM EST [facility] Comment:eGFR is calculated b ased on the CKD-EPI 2020 equation Sodium 133(L) 135 - 146 mmol/L 06/10/2023 4:17 AM EST [facility] Potassium 4.6 3.5 - 5.1 mmol/L 06/10/2023 4:17 AM EST [facility] Chloride 98 98 - 107 mmol/L 06/10/2023 4:17 AM EST [facility] CO2 28 22 - 32 mmol/L 06/10/2023 4:17 AM EST [facility] Anion Gap 7 7 - 15 mmol/L 06/10/2023 4:17 AM EST [facility] Glucose 100 70 - 120 mg/dL 06/10/2023 4:17 AM EST [facility] Calcium 8.4 8.4 - 10.2 mg/dL 06/10/2023 4:17 AM EST [facility] Blood Venous blood specimen / Unknown Venipuncture / Unknown 06/10/2023 3:37 AM EST 06/10/2023 3:48 AM EST Warner Michael MD LAB BLOOD ORDERAB LES [facility] [address] [place] [address] * (ABNORMAL) CBC (06/10/2023 3:37 AM EST) WBC 9.79 4.00 - 10.80 K/uL 06/10/2023 3:58 AM EST [facility] RBC 2.60 4.50 - 5.25 M/uL 06/10/2023 3:58 AM EST [facility] HGB 8.1(L) 14.0 - 16.8 g/dL 06/10/2023 3:58 AM EST [facility] HCT 26.3(L) 40.0 - 48.4 % 06/10/2023 3:58 AM EST [facility] MCV 101.2 82.0 - 99.5 fL 06/10/2023 3:58 AM EST [facility] MCH 31.2 27.0 - 34.0 pg 06/10/2023 3:58 AM EST [facility] MCHC 30.8 32.0 - 36.0 g/dL 06/10/2023 3:58 AM EST [facility] RDW 16.5 11.5 - 15.5 % 06/10/2023 3:58 AM EST [facility] PLT 279 140 - 400 K/uL 06/10/2023 3:58 AM EST [facility] MPV 9.1 6.6 - 11.1 fL 06/10/2023 3:58 AM EST [facility] nRBCs 0 <=0 /100 WBCs 06/10/2023 3:58 AM EST [facility] Blood Venous blood specimen / Unknown Venipuncture / Unknown 06/10/2023 3:37 AM EST 06/10/2023 3:48 AM EST Warner Michael MD LAB BLOOD ORDERAB LES LABORATORY [facility] [address] [place] [address] * (ABNORMAL) GLUCOSE METER, POINT OF CARE (06/10/2023 12:34 AM EST) Glucose Meter 169(H) 70 - 120 mg/dL 06/10/2023 12:37 AM EST [facility] Blood Whole blood specimen / Unknown 06/10/2023 12:34 AM EST 06/10/2023 12:37 AM EST Abimael De La Rosa DO LAB POINT OF CAR E TEST DOCKED DEVICE UNSOLICITED RESULTS Performing Organization Address City/[facility]/ZIP Co de Phone Number [facility] [address] [place] [address] * (ABNORMAL) GLUCOSE METER, POINT OF CARE (06/09/2023 6:00 PM EST) Glucose Meter 160(H) 70 - 120 mg/dL 06/09/2023 6:02 PM EST [facility] Blood Whole blood specimen / Unknown 06/09/2023 6:00 PM EST 06/09/2023 6:02 PM EST Abimael De La Rosa DO LAB POINT OF CAR E TEST DOCKED DEVICE UNSOLICITED RESULTS [facility] [address] [place] [address] * (ABNORMAL) GLUCOSE METER, POINT OF CARE (06/09/2023 5:52 PM EST) Glucose Meter 156(H) 70 - 120 mg/dL 06/09/2023 5:57 PM EST [facility] Blood Whole blood specimen / Unknown 06/09/2023 5:52 PM EST 06/09/2023 5:57 PM EST Abimael Tinajerody DO LAB POINT OF CAR E TEST DOCKED DEVICE UNSOLICITED RESULTS Performing Organization Address [facility] Co de Phone Number [facility] [address] [place] [address] * (ABNORMAL) GLUCOSE METER, POINT OF CARE (06/09/2023 11:50 AM EST) Glucose Meter 131(H) 70 - 120 mg/dL 06/09/2023 11:54 AM EST [facility] Blood Whole blood specimen / Unknown 06/09/2023 11:50 AM EST 06/09/2023 11:54 AM EST Abimael Tinajerody DO LAB POINT OF CAR E TEST DOCKED DEVICE UNSOLICITED RESULTS Performing Organization Address [facility] Co de Phone Number [facility] [address] [place] [address] * GLUCOSE METER, POINT OF CARE (06/09/2023 5:59 AM EST) Glucose Meter 118 70 - 120 mg/dL 06/09/2023 6:03 AM EST [facility] Blood Whole blood specimen / Unknown 06/09/2023 5:59 AM EST 06/09/2023 6:03 AM EST Abimael Tinajerody DO LAB POINT OF CAR E TEST DOCKED DEVICE UNSOLICITED RESULTS Performing Organization Address City/[facility] Co de Phone Number [facility] [address] [place] [address] * PHOSPHORUS (06/09/2023 3:28 AM EST) Phosphorus 4.5 2.5 - 4.8 mg/dL 06/09/2023 4:22 AM EST LABORATORY [facility] Blood Venous blood specimen / Unknown Venipuncture / Unknown 06/09/2023 3:28 AM EST 06/09/2023 3:50 AM EST Warner Michael MD LAB BLOOD ORDERAB LES [facility] [address] [place] [address] * MAGNESIUM (06/09/2023 3:28 AM EST) Magnesium 2.1 1.5 - 2.6 mg/dL 06/09/2023 4:22 AM EST [facility] Blood Venous blood specimen / Unknown Venipuncture / Unknown 06/09/2023 3:28 AM EST 06/09/2023 3:50 AM EST Warner Michael MD LAB BLOOD ORDERAB LES Performing Organization Address [facility] Co de Phone Number [facility] [address] [place] [address] * (ABNORMAL) BASIC METABOLIC PANEL (06/09/2023 3:28 AM EST) BUN 21(H) 6 - 20 mg/dL 06/09/2023 4:22 AM EST [facility] Creatinine 0.6 0.6 - 1.2 mg/dL 06/09/2023 4:22 AM EST [facility] Estimated Glomerular Filtration Rate >90 >=60 mL/min 06/09/2023 4:22 AM EST [facility] Comment:eGFR is calculated b ased on the CKD-EPI 2020 equation Sodium 134(L) 135 - 146 mmol/L 06/09/2023 4:22 AM EST [facility] Potassium 4.9 3.5 - 5.1 mmol/L 06/09/2023 4:22 AM EST [facility] Chloride 99 98 - 107 mmol/L 06/09/2023 4:22 AM EST [facility] CO2 29 22 - 32 mmol/L 06/09/2023 4:22 AM EST [facility] Anion Gap 6(L) 7 - 15 mmol/L 06/09/2023 4:22 AM EST [facility] Glucose 109 70 - 120 mg/dL 06/09/2023 4:22 AM EST [facility] Calcium 8.6 8.4 - 10.2 mg/dL 06/09/2023 4:22 AM EST [facility] Blood Venous blood specimen / Unknown Venipuncture / Unknown 06/09/2023 3:28 AM EST 06/09/2023 3:50 AM EST Warner Michael MD LAB BLOOD ORDERAB LES [facility] [address] [place] [address] * (ABNORMAL) CBC (06/09/2023 3:28 AM EST) Pathologist [facility] WBC 9.90 4.00 - 10.80 K/uL 06/09/2023 4:07 AM EST [facility] RBC 2.30 4.50 - 5.25 M/uL 06/09/2023 4:07 AM EST [facility] HGB 7.3(L) 14.0 - 16.8 g/dL 06/09/2023 4:07 AM EST [facility] HCT 23.9(L) 40.0 - 48.4 % 06/09/2023 4:07 AM EST [facility] MCV 103.9 82.0 - 99.5 fL 06/09/2023 4:07 AM EST [facility] MCH 31.7 27.0 - 34.0 pg 06/09/2023 4:07 AM EST [facility] MCHC 30.5 32.0 - 36.0 g/dL 06/09/2023 4:07 AM EST [facility] RDW 16.5 11.5 - 15.5 % 06/09/2023 4:07 AM EST [facility] PLT 270 140 - 400 K/uL 06/09/2023 4:07 AM EST [facility] MPV 9.6 6.6 - 11.1 fL 06/09/2023 4:07 AM EST [facility] nRBCs 0 <=0 /100 WBCs 06/09/2023 4:07 AM EST [facility] Blood Venous blood specimen / Unknown Venipuncture / Unknown 06/09/2023 3:28 AM EST 06/09/2023 3:50 AM EST Warner Michael MD LAB BLOOD ORDERAB LES LABORATORY [facility] [address] [place] [address] * GLUCOSE METER, POINT OF CARE (06/08/2023 11:41 PM EST) Glucose Meter 107 70 - 120 mg/dL 06/08/2023 11:42 PM EST [facility] Blood Whole blood specimen / Unknown 06/08/2023 11:41 PM EST 06/08/2023 11:42 PM EST Abimael De La Rosa DO LAB POINT OF CAR E TEST DOCKED DEVICE UNSOLICITED RESULTS Performing Organization Address [facility] Co de Phone Number [facility] [address] [place] [address] * (ABNORMAL) GLUCOSE METER, POINT OF CARE (06/08/2023 5:22 PM EST) Glucose Meter 240(H) 70 - 120 mg/dL 06/08/2023 9:23 PM EST [facility] Blood Whole blood specimen / Unknown 06/08/2023 5:22 PM EST 06/08/2023 9:23 PM EST Abimael De La Rosa DO LAB POINT OF CAR E TEST DOCKED DEVICE UNSOLICITED RESULTS Performing Organization Address [facility] Co de Phone Number [facility] [address] [place] [address] * (ABNORMAL) GLUCOSE METER, POINT OF CARE (06/08/2023 12:54 PM EST) Glucose Meter 121(H) 70 - 120 mg/dL 06/08/2023 12:58 PM EST [facility] Blood Whole blood specimen / Unknown 06/08/2023 12:54 PM EST 06/08/2023 12:58 PM EST Abimael De La Rosa DO LAB POINT OF CAR E TEST DOCKED DEVICE UNSOLICITED RESULTS [facility] [address] [place] [address] * (ABNORMAL) GLUCOSE METER, POINT OF CARE (06/08/2023 6:16 AM EST) Glucose Meter 216(H) 70 - 120 mg/dL 06/08/2023 6:19 AM EST [facility] Blood Whole blood specimen / Unknown 06/08/2023 6:16 AM EST 06/08/2023 6:19 AM EST Abimael De La Rosa DO LAB POINT OF CAR E TEST DOCKED DEVICE UNSOLICITED RESULTS Performing Organization Address City/[facility]/ZIP Co de Phone Number [facility] [address] [place] [address] * PHOSPHORUS (06/08/2023 3:34 AM EST) Phosphorus 3.8 2.5 - 4.8 mg/dL 06/08/2023 4:17 AM EST LABORATORY [facility] Blood Venous blood specimen / Unknown Venipuncture / Unknown 06/08/2023 3:34 AM EST 06/08/2023 3:46 AM EST Warner Michael MD LAB BLOOD ORDERAB LES LABORATORY [facility] [address] [place] [address] * MAGNESIUM (06/08/2023 3:34 AM EST) Magnesium 2.0 1.5 - 2.6 mg/dL 06/08/2023 4:17 AM EST [facility] Blood Venous blood specimen / Unknown Venipuncture / Unknown 06/08/2023 3:34 AM EST 06/08/2023 3:46 AM EST Warner Michael MD LAB BLOOD ORDERAB LES LABORATORY [facility] [address] [place] [address] * (ABNORMAL) BASIC METABOLIC PANEL (06/08/2023 3:34 AM EST) BUN 18 6 - 20 mg/dL 06/08/2023 4:17 AM EST [facility] Creatinine 0.6 0.6 - 1.2 mg/dL 06/08/2023 4:17 AM EST [facility] Estimated Glomerular Filtration Rate >90 >=60 mL/min 06/08/2023 4:17 AM EST [facility] Comment:eGFR is calculated b ased on the CKD-EPI 2020 equation Sodium 134(L) 135 - 146 mmol/L 06/08/2023 4:17 AM EST [facility] Potassium 4.7 3.5 - 5.1 mmol/L 06/08/2023 4:17 AM EST [facility] Chloride 99 98 - 107 mmol/L 06/08/2023 4:17 AM EST [facility] CO2 28 22 - 32 mmol/L 06/08/2023 4:17 AM EST [facility] Anion Gap 7 7 - 15 mmol/L 06/08/2023 4:17 AM EST [facility] Glucose 172(H) 70 - 120 mg/dL 06/08/2023 4:17 AM EST [facility] Calcium 8.3(L) 8.4 - 10.2 mg/dL 06/08/2023 4:17 AM EST LABORATORY [facility] Blood Venous blood specimen / Unknown Venipuncture / Unknown 06/08/2023 3:34 AM EST 06/08/2023 3:46 AM EST Warner Michael MD LAB BLOOD ORDERAB LES Performing Organization Address City/State/[facility] Co de Phone Number LABORATORY [facility] [address] [place] [address] * (ABNORMAL) CBC (06/08/2023 3:34 AM EST) WBC 8.82 4.00 - 10.80 K/uL 06/08/2023 3:58 AM EST [facility] RBC 2.33 4.50 - 5.25 M/uL 06/08/2023 3:58 AM EST [facility] HGB 7.5(L) 14.0 - 16.8 g/dL 06/08/2023 3:58 AM EST LABORATORY [facility] HCT 23.8(L) 40.0 - 48.4 % 06/08/2023 3:58 AM EST [facility] MCV 102.1 82.0 - 99.5 fL 06/08/2023 3:58 AM EST LABORATORY [facility] MCH 32.2 27.0 - 34.0 pg 06/08/2023 3:58 AM EST LABORATORY [facility] MCHC 31.5 32.0 - 36.0 g/dL 06/08/2023 3:58 AM EST LABORATORY C RDW 16.8 11.5 - 15.5 % 06/08/2023 3:58 AM EST LABORATORY C PLT 242 140 - 400 K/uL 06/08/2023 3:58 AM EST LABORATORY [facility] MPV 9.4 6.6 - 11.1 fL 06/08/2023 3:58 AM EST LABORATORY [facility] nRBCs 0 <=0 /100 WBCs 06/08/2023 3:58 AM EST LABORATORY [facility] Blood Venous blood specimen / Unknown Venipuncture / Unknown 06/08/2023 3:34 AM EST 06/08/2023 3:46 AM EST Warner Michael MD LAB BLOOD ORDERAB LES LABORATORY [facility] [address] [place] [address] * (ABNORMAL) GLUCOSE METER, POINT OF CARE (06/08/2023 12:14 AM EST) [facility] Glucose Meter 188(H) 70 - 120 mg/dL 06/08/2023 12:17 AM EST [facility] Blood Whole blood specimen / Unknown 06/08/2023 12:14 AM EST 06/08/2023 12:17 AM EST Abimael De La Rosa DO LAB POINT OF CAR E TEST DOCKED DEVICE UNSOLICITED RESULTS [facility] [address] [place] [address] * (ABNORMAL) GLUCOSE METER, POINT OF CARE (06/07/2023 5:44 PM EST) Glucose Meter 201(H) 70 - 120 mg/dL 06/07/2023 8:31 PM EST [facility] Blood Whole blood specimen / Unknown 06/07/2023 5:44 PM EST 06/07/2023 8:31 PM EST Abimael Cook Rj DO LAB POINT OF CAR E TEST DOCKED DEVICE UNSOLICITED RESULTS [facility] [address] [place] [address] * (ABNORMAL) GLUCOSE METER, POINT OF CARE (06/07/2023 12:27 PM EST) Glucose Meter 162(H) 70 - 120 mg/dL 06/07/2023 12:30 PM EST [facility] Blood Whole blood specimen / Unknown 06/07/2023 12:27 PM EST 06/07/2023 12:30 PM EST Abimael De La Rosa DO LAB POINT OF CAR E TEST DOCKED DEVICE UNSOLICITED RESULTS Performing Organization Address [facility]/ZIP Co de Phone Number [facility] [address] [place] [address] * (ABNORMAL) GLUCOSE METER, POINT OF CARE (06/07/2023 5:51 AM EST) Glucose Meter 186(H) 70 - 120 mg/dL 06/07/2023 5:55 AM EST [facility] Blood Whole blood specimen / Unknown 06/07/2023 5:51 AM EST 06/07/2023 5:55 AM EST Daryl Puri MD LAB POINT OF C ARE TEST DOCKED DEVICE UNSOLICITED RESULTS Performing Organization Address City/[facility]/ZIP Co de Phone Number [facility] [address] [place] [address] * PHOSPHORUS (06/07/2023 3:31 AM EST) Phosphorus 3.6 2.5 - 4.8 mg/dL 06/07/2023 4:36 AM EST LAB[facility]ORY [facility] Blood Venous blood specimen / Unknown Venipuncture / Unknown 06/07/2023 3:31 AM EST 06/07/2023 4:09 AM EST Warner Michael MD LAB BLOOD ORDERAB LES Performing Organization Address City/[facility] Co de Phone Number LABORATORY [facility] [address] [place] [address] * MAGNESIUM (06/07/2023 3:31 AM EST) Magnesium 2.0 1.5 - 2.6 mg/dL 06/07/2023 4:36 AM EST [facility]ORY [facility] Blood Venous blood specimen / Unknown Venipuncture / Unknown 06/07/2023 3:31 AM EST 06/07/2023 4:09 AM EST Warner Michael MD LAB BLOOD ORDERAB LES Performing Organization Address City/[facility] Co de Phone Number LABORATORY [facility] [address] [place] [address] * (ABNORMAL) BASIC METABOLIC PANEL (06/07/2023 3:31 AM EST) BUN 18 6 - 20 mg/dL 06/07/2023 4:36 AM EST LAB[facility]ORY [facility] Creatinine 0.6 0.6 - 1.2 mg/dL 06/07/2023 4:36 AM EST [facility] Estimated Glomerular Filtration Rate >90 >=60 mL/min 06/07/2023 4:36 AM EST [facility] Comment:eGFR is calculated b ased on the CKD-EPI 2020 equation Sodium 134(L) 135 - 146 mmol/L 06/07/2023 4:36 AM EST [facility] Potassium 4.6 3.5 - 5.1 mmol/L 06/07/2023 4:36 AM EST [facility] Chloride 99 98 - 107 mmol/L 06/07/2023 4:36 AM EST [facility] CO2 28 22 - 32 mmol/L 06/07/2023 4:36 AM EST [facility] Anion Gap 7 7 - 15 mmol/L 06/07/2023 4:36 AM EST [facility] Glucose 172(H) 70 - 120 mg/dL 06/07/2023 4:36 AM EST [facility] Calcium 8.3(L) 8.4 - 10.2 mg/dL 06/07/2023 4:36 AM EST [facility] Blood Venous blood specimen / Unknown Venipuncture / Unknown 06/07/2023 3:31 AM EST 06/07/2023 4:09 AM EST Warner Michael MD LAB BLOOD ORDERAB LES LABORATORY [facility] [address] [place] [address] * (ABNORMAL) CBC (06/07/2023 3:31 AM EST) WBC 8.82 4.00 - 10.80 K/uL 06/07/2023 4:18 AM EST [facility] RBC 2.42 4.50 - 5.25 M/uL 06/07/2023 4:18 AM EST LAB[facility]ORY [facility] HGB 7.6(L) 14.0 - 16.8 g/dL 06/07/2023 4:18 AM EST [facility] HCT 24.3(L) 40.0 - 48.4 % 06/07/2023 4:18 AM EST LAB[facility] MCV 100.4 82.0 - 99.5 fL 06/07/2023 4:18 AM EST LAB[facility]ORY [facility] MCH 31.4 27.0 - 34.0 pg 06/07/2023 4:18 AM EST LAB[facility]ORY [facility] MCHC 31.3 32.0 - 36.0 g/dL 06/07/2023 4:18 AM EST [facility] RDW 16.8 11.5 - 15.5 % 06/07/2023 4:18 AM EST LAB[facility]ATORY [facility] PLT 224 140 - 400 K/uL 06/07/2023 4:18 AM EST LAB[facility]ORY [facility] MPV 9.5 6.6 - 11.1 fL 06/07/2023 4:18 AM EST LAB[facility] nRBCs 0 <=0 /100 WBCs 06/07/2023 4:18 AM EST LABORATORY [facility] Blood Venous blood specimen / Unknown Venipuncture / Unknown 06/07/2023 3:31 AM EST 06/07/2023 4:09 AM EST Warner Michael MD LAB BLOOD ORDERAB LES LABORATORY [facility] [address] [place] [address] * (ABNORMAL) GLUCOSE METER, POINT OF CARE (06/06/2023 11:55 PM EST) Glucose Meter 174(H) 70 - 120 mg/dL 06/06/2023 11:58 PM EST [facility] Blood Whole blood specimen / Unknown 06/06/2023 11:55 PM EST 06/06/2023 11:58 PM EST Daryl Puri MD LAB POINT OF C ARE TEST DOCKED DEVICE UNSOLICITED RESULTS Performing Organization Address City/[facility]/ZIP Co de Phone Number [facility] [address] [place] [address] * (ABNORMAL) GLUCOSE METER, POINT OF CARE (06/06/2023 6:05 PM EST) Glucose Meter 219(H) 70 - 120 mg/dL 06/06/2023 6:16 PM EST [facility] Blood Whole blood specimen / Unknown 06/06/2023 6:05 PM EST 06/06/2023 6:16 PM EST Daryl Puri MD LAB POINT OF C ARE TEST DOCKED DEVICE UNSOLICITED RESULTS Performing Organization Address City/[facility]/ZIP Co de Phone Number [facility] [address] [place] [address] * (ABNORMAL) GLUCOSE METER, POINT OF CARE (06/06/2023 11:59 AM EST) Glucose Meter 199(H) 70 - 120 mg/dL 06/07/2023 1:40 AM EST [facility] Blood Whole blood specimen / Unknown 06/06/2023 11:59 AM EST 06/07/2023 1:40 AM EST Daryl Puri MD LAB POINT OF C ARE TEST DOCKED DEVICE UNSOLICITED RESULTS Performing Organization Address City/[facility]/ZIP Co de Phone Number [facility] [address] [place] [address] * (ABNORMAL) GLUCOSE METER, POINT OF CARE (06/06/2023 5:44 AM EST) Glucose Meter 232(H) 70 - 120 mg/dL 06/06/2023 6:00 AM EST [facility] Blood Whole blood specimen / Unknown 06/06/2023 5:44 AM EST 06/06/2023 6:00 AM EST Viktoriya Ha DO LAB POINT OF CARE TE ST DOCKED DEVICE UNSOLICITED RESULTS Performing Organization Address City/[facility]/ZIP Co de Phone Number [facility] [address] [place] [address] * PHOSPHORUS (06/06/2023 4:38 AM EST) Phosphorus 3.5 2.5 - 4.8 mg/dL 06/06/2023 5:21 AM EST LABORATORY [facility] Blood Venous blood specimen / Unknown Venipuncture / Unknown 06/06/2023 4:38 AM EST 06/06/2023 4:51 AM EST Warner Michael MD LAB BLOOD ORDERAB LES LABORATORY [facility] [address] [place] [address] * MAGNESIUM (06/06/2023 4:38 AM EST) Magnesium 2.1 1.5 - 2.6 mg/dL 06/06/2023 5:21 AM EST LABORATORY GM Blood Venous blood specimen / Unknown Venipuncture / Unknown 06/06/2023 4:38 AM EST 06/06/2023 4:51 AM EST Warner Michael MD LAB BLOOD ORDERAB LES [facility] [address] [place] [address] * (ABNORMAL) BASIC METABOLIC PANEL (06/06/2023 4:38 AM EST) BUN 18 6 - 20 mg/dL 06/06/2023 5:21 AM EST LAB[facility]AT[facility] Creatinine 0.6 0.6 - 1.2 mg/dL 06/06/2023 5:21 AM EST LAB[facility]ORY [facility] Estimated Glomerular Filtration Rate >90 >=60 mL/min 06/06/2023 5:21 AM EST LAB[facility]ORY [facility] Comment:eGFR is calculated b ased on the CKD-EPI 2020 equation Sodium 135 135 - 146 mmol/L 06/06/2023 5:21 AM EST LAB[facility]ATORY [facility] Potassium 4.7 3.5 - 5.1 mmol/L 06/06/2023 5:21 AM EST [facility] Chloride 100 98 - 107 mmol/L 06/06/2023 5:21 AM EST [facility] CO2 28 22 - 32 mmol/L 06/06/2023 5:21 AM EST [facility] Anion Gap 7 7 - 15 mmol/L 06/06/2023 5:21 AM EST [facility] Glucose 217(H) 70 - 120 mg/dL 06/06/2023 5:21 AM EST [facility] Calcium 8.4 8.4 - 10.2 mg/dL 06/06/2023 5:21 AM EST [facility] Blood Venous blood specimen / Unknown Venipuncture / Unknown 06/06/2023 4:38 AM EST 06/06/2023 4:51 AM EST Warner Michael MD LAB BLOOD ORDERAB LES [facility] [address] [place] [address] * (ABNORMAL) CBC (06/06/2023 4:38 AM EST) WBC 7.91 4.00 - 10.80 K/uL 06/06/2023 5:06 AM EST LAB[facility]ATORY [facility] RBC 2.36 4.50 - 5.25 M/uL 06/06/2023 5:06 AM EST LABORATORY GM HGB 7.6(L) 14.0 - 16.8 g/dL 06/06/2023 5:06 AM EST [facility] HCT 24.4(L) 40.0 - 48.4 % 06/06/2023 5:06 AM EST LAB[facility] MCV 103.4 82.0 - 99.5 fL 06/06/2023 5:06 AM EST [facility] MCH 32.2 27.0 - 34.0 pg 06/06/2023 5:06 AM EST LABORATORY GM MCHC 31.1 32.0 - 36.0 g/dL 06/06/2023 5:06 AM EST LABORATORY [facility] RDW 17.2 11.5 - 15.5 % 06/06/2023 5:06 AM EST LABORATORY [facility] PLT 205 140 - 400 K/uL 06/06/2023 5:06 AM EST LABORATORY [facility] MPV 9.5 6.6 - 11.1 fL 06/06/2023 5:06 AM EST LABORATORY [facility] nRBCs 0 <=0 /100 WBCs 06/06/2023 5:06 AM EST LABORATORY [facility] Blood Venous blood specimen / Unknown Venipuncture / Unknown 06/06/2023 4:38 AM EST 06/06/2023 4:51 AM EST Warner Michael MD LAB BLOOD ORDERAB LES Performing Organization Address City/State/[facility] Co de Phone Number LABORATORY [facility] [address] [place] [address] * (ABNORMAL) GLUCOSE METER, POINT OF CARE (06/05/2023 11:42 PM EST) Glucose Meter 180(H) 70 - 120 mg/dL 06/05/2023 11:49 PM EST [facility] Blood Whole blood specimen / Unknown 06/05/2023 11:42 PM EST 06/05/2023 11:49 PM EST Viktoriya Leyva Onursal DO LAB POINT OF CARE TE ST DOCKED DEVICE UNSOLICITED RESULTS [facility] [address] [place] [address] * (ABNORMAL) GLUCOSE METER, POINT OF CARE (06/05/2023 6:35 PM EST) Glucose Meter 198(H) 70 - 120 mg/dL 06/05/2023 6:38 PM EST [facility] [employer] [facility] Blood Whole blood specimen / Unknown 06/05/2023 6:35 PM EST 06/05/2023 6:38 PM EST Viktoriya Leyva Onursal DO LAB POINT OF CARE TE ST DOCKED DEVICE UNSOLICITED RESULTS Performing Organization Address [facility] Co de Phone Number [facility] [address] [place] [address] * FLUORO SWALLOWING FUNCTION W VIDEO CINE (06/05/2023 1:48 PM EST) Anatomical Region Laterality Modality Esoph, Neck Radio Fluoroscop y 06/05/2023 2:45 PM EST Impressions 06/05/2023 4:07 PM EST IMPRESSION 1. Aspiration observed with thin, mildly-thick, and moderately-thick liquids. 2. Please see the full speech pathologist report for complete evaluation. I have personally reviewed this examination and agree with the resident/fellow physician's interpretation. Narrative 06/05/2023 4:07 PM EST EXAM FLUORO SWALLOWING FUNCTION W VIDEO CINE - 06/05/2023 1:48 pm HISTORY video swallow TECHNIQUE Under direct fluoroscopic evaluation, the speech pathologist administered barium mixed liquid and solid food of varying consistency. The mechanisms of bolus formation and swallowing were observed. Findings were recorded. COMPARISON None. FINDINGS Patient tolerated different liquids and foods of varying consistencies. Aspiration was observed with thin, mildly-thick, and moderately thick liquids. Procedure Note Jagdeep Puentes MD - 06/05/2023 EXAM FLUORO SWALLOWING FUNCTION W VIDEO CINE - 06/05/2023 1:48 pm HISTORY video swallow TECHNIQUE Under direct fluoroscopic evaluation, the speech pathologist administeredbarium mixed liquid and solid food of varying consistency. The mechanismsof bolus formation and swallowing were observed. Findings were recorded. COMPARISON None. FINDINGS Patient tolerated different liquids and foods of varying consistencies. Aspiration was observed with thin, mildly-thick, and moderately thickliquids. IMPRESSION IMPRESSION 1. Aspiration observed with thin, mildly-thick, and moderately-thickliquids. 2. Please see the full speech pathologist report for completeevaluation. I have personally reviewed this examination and agree with the resident/fellow physician's interpretation. Mikayla Johnson MD RAD FLUOROSCOPY * (ABNORMAL) GLUCOSE METER, POINT OF CARE (06/05/2023 12:04 PM EST) Glucose Meter 146(H) 70 - 120 mg/dL 06/05/2023 12:14 PM EST [facility] Blood Whole blood specimen / Unknown 06/05/2023 12:04 PM EST 06/05/2023 12:14 PM EST Viktoriya Ha DO LAB POINT OF CARE TE ST DOCKED DEVICE UNSOLICITED RESULTS [facility] [address] [place] [address] * (ABNORMAL) PHOSPHORUS (06/05/2023 4:47 AM EST) Phosphorus 2.4(L) 2.5 - 4.8 mg/dL 06/05/2023 5:34 AM EST LABORATORY [facility] Blood Venous blood specimen / Unknown Venipuncture / Unknown 06/05/2023 4:47 AM EST 06/05/2023 5:05 AM EST Warner Michael MD LAB BLOOD ORDERAB LES [facility] [address] [place] [address] * MAGNESIUM (06/05/2023 4:47 AM EST) Magnesium 2.0 1.5 - 2.6 mg/dL 06/05/2023 5:34 AM EST LAB[facility]ATORY [facility] Blood Venous blood specimen / Unknown Venipuncture / Unknown 06/05/2023 4:47 AM EST 06/05/2023 5:05 AM EST Warner Michael MD LAB BLOOD ORDERAB LES Performing Organization Address City/[facility]/ZIP Co de Phone Number LAB[facility]ATORY [facility] [address] [place] [address] * (ABNORMAL) BASIC METABOLIC PANEL (06/05/2023 4:47 AM EST) BUN 20 6 - 20 mg/dL 06/05/2023 5:34 AM EST [facility] Creatinine 0.6 0.6 - 1.2 mg/dL 06/05/2023 5:34 AM EST LAB[facility]ORY [facility] Estimated Glomerular Filtration Rate >90 >=60 mL/min 06/05/2023 5:34 AM EST LAB[facility]ATORY [facility] Comment:eGFR is calculated b ased on the CKD-EPI 2020 equation Sodium 136 135 - 146 mmol/L 06/05/2023 5:34 AM EST LAB[facility]ATORY [facility] Potassium 4.7 3.5 - 5.1 mmol/L 06/05/2023 5:34 AM EST LAB[facility] Chloride 101 98 - 107 mmol/L 06/05/2023 5:34 AM EST [facility] CO2 29 22 - 32 mmol/L 06/05/2023 5:34 AM EST LAB[facility] Anion Gap 6(L) 7 - 15 mmol/L 06/05/2023 5:34 AM EST [facility] Glucose 220(H) 70 - 120 mg/dL 06/05/2023 5:34 AM EST LAB[facility] Calcium 8.2(L) 8.4 - 10.2 mg/dL 06/05/2023 5:34 AM EST [facility] Blood Venous blood specimen / Unknown Venipuncture / Unknown 06/05/2023 4:47 AM EST 06/05/2023 5:05 AM EST Warner Michael MD LAB BLOOD ORDERAB LES Performing Organization Address City/[facility]/ZIP Co de Phone Number LABORATORY [facility] [address] [place] [address] * (ABNORMAL) CBC (06/05/2023 4:47 AM EST) WBC 8.39 4.00 - 10.80 K/uL 06/05/2023 5:13 AM EST LAB[facility]ATORY [facility] RBC 2.51 4.50 - 5.25 M/uL 06/05/2023 5:13 AM EST LAB[facility]ATORY [facility] HGB 8.1(L) 14.0 - 16.8 g/dL 06/05/2023 5:13 AM EST [facility]ORY [facility] HCT 26.3(L) 40.0 - 48.4 % 06/05/2023 5:13 AM EST LAB[facility]ORY [facility] MCV 104.8 82.0 - 99.5 fL 06/05/2023 5:13 AM EST LAB[facility]ORY [facility] MCH 32.3 27.0 - 34.0 pg 06/05/2023 5:13 AM EST [facility] MCHC 30.8 32.0 - 36.0 g/dL 06/05/2023 5:13 AM EST LAB[facility]ORY [facility] RDW 17.2 11.5 - 15.5 % 06/05/2023 5:13 AM EST LAB[facility]ATORY [facility] PLT 200 140 - 400 K/uL 06/05/2023 5:13 AM EST LAB[facility]ATORY [facility] MPV 9.5 6.6 - 11.1 fL 06/05/2023 5:13 AM EST LAB[facility]ATORY [facility] nRBCs 0 <=0 /100 WBCs 06/05/2023 5:13 AM EST LABORATORY [facility] Blood Venous blood specimen / Unknown Venipuncture / Unknown 06/05/2023 4:47 AM EST 06/05/2023 5:05 AM EST aWrner Michael MD LAB BLOOD ORDERAB LES LABORATORY [facility] [address] [place] [address] * (ABNORMAL) GLUCOSE METER, POINT OF CARE (06/05/2023 4:05 AM EST) Glucose Meter 204(H) 70 - 120 mg/dL 06/05/2023 6:21 AM EST [facility] Blood Whole blood specimen / Unknown 06/05/2023 4:05 AM EST 06/05/2023 6:21 AM EST Viktoriya Leyva Onursal DO LAB POINT OF CARE TE ST DOCKED DEVICE UNSOLICITED RESULTS [facility] [address] [place] [address] * (ABNORMAL) GLUCOSE METER, POINT OF CARE (06/05/2023 12:09 AM EST) Glucose Meter 222(H) 70 - 120 mg/dL 06/05/2023 12:13 AM EST [facility] Blood Whole blood specimen / Unknown 06/05/2023 12:09 AM EST 06/05/2023 12:13 AM EST [facility] POINT OF CARE TE ST DOCKED DEVICE UNSOLICITED RESULTS [facility] [employer] [facility] [address] [place] [address] * (ABNORMAL) GLUCOSE METER, POINT OF CARE (06/04/2023 8:21 PM EST) Glucose Meter 224(H) 70 - 120 mg/dL 06/04/2023 8:24 PM EST [facility] Blood Whole blood specimen / Unknown 06/04/2023 8:21 PM EST 06/04/2023 8:24 PM EST [facility]ya Le[facility] DO LAB POINT OF CARE TE ST DOCKED DEVICE UNSOLICITED RESULTS [facility] [address] [place] [address] * GLUCOSE METER, POINT OF CARE (06/04/2023 4:17 PM EST) Glucose Meter 99 70 - 120 mg/dL 06/04/2023 4:21 PM EST [facility] Blood Whole blood specimen / Unknown 06/04/2023 4:17 PM EST 06/04/2023 4:21 PM EST Viktoriya Ha DO LAB POINT OF CARE TE ST DOCKED DEVICE UNSOLICITED RESULTS [facility] [address] [place] [address] * ANATOMIC PATHOLOGY (BM/SURGICAL/CYTOLOGY) ADD ON REQUEST (06/04/2023 3:26 PM EST) Tissue 06/04/2023 3:26 PM EST 06/04/2023 3:26 PM EST Narrative LABORATORY [facility] - 06/05/2023 2:39 PM EST PDL1 & MyGenVar Head & Neck Gene Panel (NGS) Ordered by: Dr. WALTER MENENDEZ 06/04/23 QA for slides JCD 06/04/23 Slides to WQ 06/05/23 JCD Per WQ ordered on A1, 80% tumor JCD 06/05/23 Walter Menendez MD LAB BLOOD ORDE RABLES LABORATORY [facility] [address] [place] [address] * (ABNORMAL) GLUCOSE METER, POINT OF CARE (06/04/2023 11:36 AM EST) Glucose Meter 158(H) 70 - 120 mg/dL 06/04/2023 11:46 AM EST [facility] [employer] [facility] Blood Whole blood specimen / Unknown 06/04/2023 11:36 AM EST 06/04/2023 11:46 AM EST Viktoriya Ha DO LAB POINT OF CARE TE ST DOCKED DEVICE UNSOLICITED RESULTS [facility] [address] [place] [address] * (ABNORMAL) GLUCOSE METER, POINT OF CARE (06/04/2023 7:47 AM EST) Glucose Meter 258(H) 70 - 120 mg/dL 06/04/2023 7:51 AM EST [facility] Blood Whole blood specimen / Unknown 06/04/2023 7:47 AM EST 06/04/2023 7:51 AM EST Viktoriya Gordon Ha DO LAB POINT OF CARE TE ST DOCKED DEVICE UNSOLICITED RESULTS Performing Organization Address City/[facility]/ZIP Co de Phone Number [facility] [address] [place] [address] * PHOSPHORUS (06/04/2023 4:34 AM EST) Phosphorus 2.7 2.5 - 4.8 mg/dL 06/04/2023 5:14 AM EST LABORATORY [facility] Blood Venous blood specimen / Unknown Venipuncture / Unknown 06/04/2023 4:34 AM EST 06/04/2023 4:42 AM EST Warner Michael MD LAB BLOOD ORDERAB LES Performing Organization Address City/[facility]/ZIP Co de Phone Number LABORATORY [facility] [address] [place] [address] * MAGNESIUM (06/04/2023 4:34 AM EST) Magnesium 2.1 1.5 - 2.6 mg/dL 06/04/2023 5:14 AM EST LAB[facility]ATORY [facility] Blood Venous blood specimen / Unknown Venipuncture / Unknown 06/04/2023 4:34 AM EST 06/04/2023 4:42 AM EST Warner Michael MD LAB BLOOD ORDERAB LES Performing Organization Address City/[facility] Co de Phone Number LABORATORY [facility] [address] [place] [address] * (ABNORMAL) BASIC METABOLIC PANEL (06/04/2023 4:34 AM EST) BUN 17 6 - 20 mg/dL 06/04/2023 5:14 AM EST [facility] Creatinine 0.6 0.6 - 1.2 mg/dL 06/04/2023 5:14 AM EST LAB[facility]ORY [facility] Estimated Glomerular Filtration Rate >90 >=60 mL/min 06/04/2023 5:14 AM EST LAB[facility]ORY [facility] Comment:eGFR is calculated b ased on the CKD-EPI 2020 equation Sodium 133(L) 135 - 146 mmol/L 06/04/2023 5:14 AM EST LAB[facility]ORY [facility] Potassium 4.4 3.5 - 5.1 mmol/L 06/04/2023 5:14 AM EST [facility] Chloride 100 98 - 107 mmol/L 06/04/2023 5:14 AM EST [facility] CO2 27 22 - 32 mmol/L 06/04/2023 5:14 AM EST [facility] Anion Gap 6(L) 7 - 15 mmol/L 06/04/2023 5:14 AM EST [facility] Glucose 278(H) 70 - 120 mg/dL 06/04/2023 5:14 AM EST [facility] Calcium 7.9(L) 8.4 - 10.2 mg/dL 06/04/2023 5:14 AM EST [facility] Blood Venous blood specimen / Unknown Venipuncture / Unknown 06/04/2023 4:34 AM EST 06/04/2023 4:42 AM EST Warner Michael MD LAB BLOOD ORDERAB LES [facility] [address] [place] [address] * (ABNORMAL) CBC (06/04/2023 4:34 AM EST) WBC 6.29 4.00 - 10.80 K/uL 06/04/2023 4:55 AM EST [facility] RBC 2.41 4.50 - 5.25 M/uL 06/04/2023 4:55 AM EST [facility] HGB 7.7(L) 14.0 - 16.8 g/dL 06/04/2023 4:55 AM EST [facility] HCT 25.2(L) 40.0 - 48.4 % 06/04/2023 4:55 AM EST [facility] MCV 104.6 82.0 - 99.5 fL 06/04/2023 4:55 AM EST [facility] MCH 32.0 27.0 - 34.0 pg 06/04/2023 4:55 AM EST LABORATORY C MCHC 30.6 32.0 - 36.0 g/dL 06/04/2023 4:55 AM EST LABORATORY C RDW 17.4 11.5 - 15.5 % 06/04/2023 4:55 AM EST [facility] PLT 173 140 - 400 K/uL 06/04/2023 4:55 AM EST [facility] MPV 9.2 6.6 - 11.1 fL 06/04/2023 4:55 AM EST [facility] nRBCs 0 <=0 /100 WBCs 06/04/2023 4:55 AM EST [facility] Blood Venous blood specimen / Unknown Venipuncture / Unknown 06/04/2023 4:34 AM EST 06/04/2023 4:42 AM EST Warner Michael MD LAB BLOOD ORDERAB LES Performing Organization Address City/[facility]/ZIP Co de Phone Number LABORATORY [facility] [address] [place] [address] * CALCIUM, IONIZED, WHOLE BLOOD (06/04/2023 4:34 AM EST) Calcium, Ionized, Whole Blood 1.17 1.13 - 1.32 mmol/L 06/04/2023 4:48 AM EST LABORATORY [facility] Blood Venous blood specimen / Unknown Venipuncture / Unknown 06/04/2023 4:34 AM EST 06/04/2023 4:42 AM EST Marielle TIRADO LAB BLOOD ORD ERABLES LABORATORY [facility] [address] [place] [address] * (ABNORMAL) HEPATIC FUNCTION PANEL (06/04/2023 4:34 AM EST) Albumin 2.5(L) 3.8 - 5.0 g/dL 06/04/2023 5:14 AM EST [facility] AST 13 10 - 50 U/L 06/04/2023 5:14 AM EST [facility] Alkaline Phosphatase 59 35 - 130 U/L 06/04/2023 5:14 AM EST [facility] ALT 8(L) 10 - 50 U/L 06/04/2023 5:14 AM EST [facility] Bilirubin, Total 0.3 <=1.2 mg/dL 06/04/2023 5:14 AM EST [facility] Bilirubin, Direct <0.2 0.0 - 0.3 mg/dL 06/04/2023 5:14 AM EST [facility] Protein 5.2(L) 6.0 - 8.3 g/dL 06/04/2023 5:14 AM EST [facility] Blood Venous blood specimen / Unknown Venipuncture / Unknown 06/04/2023 4:34 AM EST 06/04/2023 4:42 AM EST Marielle TIRADO LAB BLOOD ORD ERABLES [facility] [address] [place] [address] * (ABNORMAL) GLUCOSE METER, POINT OF CARE (06/04/2023 4:03 AM EST) Glucose Meter 245(H) 70 - 120 mg/dL 06/04/2023 4:07 AM EST [facility] Blood Whole blood specimen / Unknown 06/04/2023 4:03 AM EST 06/04/2023 4:07 AM EST Viktoriya Ha DO LAB POINT OF CARE TE ST DOCKED DEVICE UNSOLICITED RESULTS [facility] [address] [place] [address] * (ABNORMAL) GLUCOSE METER, POINT OF CARE (06/04/2023 12:01 AM EST) Glucose Meter 203(H) 70 - 120 mg/dL 06/04/2023 12:04 AM EST [facility] Blood Whole blood specimen / Unknown 06/04/2023 12:01 AM EST 06/04/2023 12:04 AM EST Viktoriya Leyva Onursal DO LAB POINT OF CARE TE ST DOCKED DEVICE UNSOLICITED RESULTS Performing Organization Address [facility]/ZIP Co de Phone Number [facility] [address] [place] [address] * (ABNORMAL) GLUCOSE METER, POINT OF CARE (06/03/2023 5:14 PM EST) Glucose Meter 144(H) 70 - 120 mg/dL 06/03/2023 5:18 PM EST [facility] Blood Whole blood specimen / Unknown 06/03/2023 5:14 PM EST 06/03/2023 5:18 PM EST Viktoriya Leyva Onursal DO LAB POINT OF CARE TE ST DOCKED DEVICE UNSOLICITED RESULTS Performing Organization Address [facility] Co de Phone Number [facility] [address] [place] [address] * GLUCOSE METER, POINT OF CARE (06/03/2023 11:54 AM EST) Glucose Meter 79 70 - 120 mg/dL 06/03/2023 11:59 AM EST [facility] Blood Whole blood specimen / Unknown 06/03/2023 11:54 AM EST 06/03/2023 11:58 AM EST Viktoriya Leyva Onursal DO LAB POINT OF CARE TE ST DOCKED DEVICE UNSOLICITED RESULTS Performing Organization Address [facility] Co de Phone Number [facility] [address] [place] [address] * CT CHEST/ABDOMEN/PELVIS WITH IV CONTRAST WITHOUT ORAL CONTRAST (06/03/2023 10:28 AM EST) Anatomical Region Laterality Modality Body, Chest, Abdomen, Pelvis, Cardio Computed Tomography 06/03/2023 10:5 0 AM EST Impressions 06/03/2023 10:47 AM EST IMPRESSION 1. Mild pulmonary edema and small bilateral pleural effusions. 2. Pulmonary edema limits evaluation for suspicious pulmonary nodules. No additional evidence of metastatic disease in the chest. Short-term follow-up CT chest recommended. 3. No evidence of metastatic disease in the abdomen/pelvis. Narrative 06/03/2023 10:[address] CHEST/ABDOMEN/PELVIS WITH IV CONTRAST WITHOUT ORAL CONTRAST-06/03/2023 10:28 am HISTORY Metastatic work up COMPARISON CT chest 05/26/2023 TECHNIQUE Axial images of the chest, abdomen and pelvis were obtained. Sagittal and coronal images were reconstructed from the axial data. Oral Contrast: Not administered. IV Contrast: Administered. FINDINGS CHEST: Lines and devices: Interval tracheostomy tube placement. Lungs and pleura: Mild emphysema and diffuse interlobular septal thickening favoring pulmonary edema. Small right, trace left pleural effusions. A few nodular opacities may be infectious or inflammatory secondary to pulmonary edema. Limited evaluation for suspicious pulmonary nodules. Trachea and bronchi: Secretions in the trachea. Mediastinum, lyric and lymph nodes: Unremarkable. Heart and pericardium: Cardiomegaly. No pericardial effusion. Vessels: Atherosclerotic calcifications of the aorta and coronary arteries. Soft tissues: Unremarkable. Bones: Diffuse osteopenia. Degenerative osseous changes. Median sternotomy. No suspicious osseous lesion. ABDOMEN/PELVIS: Lines and devices: Gastrojejunostomy in place. Jenkins catheter in the bladder. Liver: Unremarkable. Gallbladder: Cholecystectomy. Bile ducts: Unremarkable. Pancreas: Unremarkable. Spleen: Unremarkable. Adrenals: Unremarkable. Kidneys/Ureters: Unremarkable. Bladder: Collapsed around a Jenkins catheter. Reproductive organs: Streak artifact from the hip arthroplasties limits evaluation. Peritoneum/Retroperitoneum: Unremarkable. Bowel: Normal in caliber without evidence of obstruction. Lymph nodes: Unremarkable. Vessels: Atherosclerotic calcifications of the aorta. No aortic aneurysm. Abdominal Wall/Soft Tissues: Unremarkable. Bones: Diffuse osteopenia. Bilateral total hip arthroplasties. Right pubic deformity. Posterior lumbar spinal fusion hardware. Procedure Note Josh Davis MD - 06/03/[address] CHEST/ABDOMEN/PELVIS WITH IV CONTRAST WITHOUT ORAL CONTRAST-0:28 am HISTORY Metastatic work up COMPARISON CT chest 05/26/2023 TECHNIQUE Axial images of the chest, abdomen and pelvis were obtained. Sagittal andcoronal images were reconstructed from the axial data. Oral Contrast: Not administered. IV Contrast: Administered. FINDINGS CHEST: Lines and devices: Interval tracheostomy tube placement. Lungs and pleura: Mild emphysema and diffuse interlobular septalthickening favoring pulmonary edema. Small right, trace left pleuraleffusions. A few nodular opacities may be infectious or inflammatorysecondary to pulmonary edema. Limited evaluation for suspicious pulmonarynodules. Trachea and bronchi: Secretions in the trachea. Mediastinum, lyric and lymph nodes: Unremarkable. Heart and pericardium: Cardiomegaly. No pericardial effusion. Vessels: Atherosclerotic calcifications of the aorta and coronaryarteries. Soft tissues: Unremarkable. Bones: Diffuse osteopenia. Degenerative osseous changes. Mediansternotomy. No suspicious osseous lesion. ABDOMEN/PELVIS: Lines and devices: Gastrojejunostomy in place. Jenkins catheter in thebladder. Liver: Unremarkable. Gallbladder: Cholecystectomy. Bile ducts: Unremarkable. Pancreas: Unremarkable. Spleen: Unremarkable. Adrenals: Unremarkable. Kidneys/Ureters: Unremarkable. Bladder: Collapsed around a Jenkins catheter. Reproductive organs: Streak artifact from the hip arthroplasties limitsevaluation. Peritoneum/Retroperitoneum: Unremarkable. Bowel: Normal in caliber without evidence of obstruction. Lymph nodes: Unremarkable. Vessels: Atherosclerotic calcifications of the aorta. No aorticaneurysm. Abdominal Wall/Soft Tissues: Unremarkable. Bones: Diffuse osteopenia. Bilateral total hip arthroplasties. Rightpubic deformity. Posterior lumbar spinal fusion hardware. IMPRESSION IMPRESSION 1. Mild pulmonary edema and small bilateral pleural effusions. 2. Pulmonary edema limits evaluation for suspicious pulmonary nodules. Noadditional evidence of metastatic disease in the chest. [id number] CT chest recommended. 3. No evidence of metastatic disease in the abdomen/pelvis. Mikayla Johnson MD RAD CT * PHOSPHORUS (06/03/2023 6:17 AM EST) Phosphorus 2.7 2.5 - 4.8 mg/dL 06/03/2023 7:21 AM EST LABORATORY [facility] Blood Venous blood specimen / Unknown Venipuncture / Unknown 06/03/2023 6:17 AM EST 06/03/2023 6:28 AM EST Warner Michael MD LAB BLOOD ORDERAB LES [facility] [address] [place] [address] * MAGNESIUM (06/03/2023 6:17 AM EST) Magnesium 1.9 1.5 - 2.6 mg/dL 06/03/2023 7:21 AM EST [facility] Blood Venous blood specimen / Unknown Venipuncture / Unknown 06/03/2023 6:17 AM EST 06/03/2023 6:28 AM EST Warner Michael MD LAB BLOOD ORDERAB LES Performing Organization Address [facility] Co de Phone Number LABORATORY [facility] [address] [place] [address] * (ABNORMAL) BASIC METABOLIC PANEL (06/03/2023 6:17 AM EST) BUN 16 6 - 20 mg/dL 06/03/2023 7:21 AM EST [facility] Creatinine 0.6 0.6 - 1.2 mg/dL 06/03/2023 7:21 AM EST [facility] Estimated Glomerular Filtration Rate >90 >=60 mL/min 06/03/2023 7:21 AM EST [facility] Comment:eGFR is calculated b ased on the CKD-EPI 2020 equation Sodium 133(L) 135 - 146 mmol/L 06/03/2023 7:21 AM EST [facility] Potassium 4.6 3.5 - 5.1 mmol/L 06/03/2023 7:21 AM EST [facility] Chloride 101 98 - 107 mmol/L 06/03/2023 7:21 AM EST [facility] CO2 28 22 - 32 mmol/L 06/03/2023 7:21 AM EST [facility] Anion Gap 4(L) 7 - 15 mmol/L 06/03/2023 7:21 AM EST [facility] Glucose 271(H) 70 - 120 mg/dL 06/03/2023 7:21 AM EST [facility] Calcium 7.9(L) 8.4 - 10.2 mg/dL 06/03/2023 7:21 AM EST [facility] Blood Venous blood specimen / Unknown Venipuncture / Unknown 06/03/2023 6:17 AM EST 06/03/2023 6:28 AM EST Warner Michael MD LAB BLOOD ORDERAB LES Performing Organization Address City/[facility]/ZIP Co de Phone Number [facility] [address], [place] [id number] * (ABNORMAL) CBC (06/03/2023 6:17 AM EST) WBC 6.58 4.00 - 10.80 K/uL 06/03/2023 6:47 AM EST [facility] RBC 2.41 4.50 - 5.25 M/uL 06/03/2023 6:47 AM EST [facility] HGB 7.8(L) 14.0 - 16.8 g/dL 06/03/2023 6:47 AM EST [facility] HCT 25.1(L) 40.0 - 48.4 % 06/03/2023 6:47 AM EST [facility] MCV 104.1 82.0 - 99.5 fL 06/03/2023 6:47 AM EST [facility] MCH 32.4 27.0 - 34.0 pg 06/03/2023 6:47 AM EST [facility] MCHC 31.1 32.0 - 36.0 g/dL 06/03/2023 6:47 AM EST [facility] RDW 17.5 11.5 - 15.5 % 06/03/2023 6:47 AM EST [facility] PLT 170 140 - 400 K/uL 06/03/2023 6:47 AM EST [facility] MPV 9.6 6.6 - 11.1 fL 06/03/2023 6:47 AM EST [facility] nRBCs 0 <=0 /100 WBCs 06/03/2023 6:47 AM EST [facility] Blood Venous blood specimen / Unknown Venipuncture / Unknown 06/03/2023 6:17 AM EST 06/03/2023 6:28 AM EST Warner Michael MD LAB BLOOD ORDERAB LES [facility] [address] [place] [id number] * (ABNORMAL) GLUCOSE METER, POINT OF CARE (06/03/2023 6:12 AM EST) Glucose Meter 246(H) 70 - 120 mg/dL 06/03/2023 6:15 AM EST [facility] Blood Whole blood specimen / Unknown 06/03/2023 6:12 AM EST 06/03/2023 6:15 AM EST Viktoriya Leyva [facility] LAB POINT OF CARE TE ST DOCKED DEVICE UNSOLICITED RESULTS [facility] [address] [place] [address] * (ABNORMAL) GLUCOSE METER, POINT OF CARE (06/02/2023 11:12 PM EST) Glucose Meter 125(H) 70 - 120 mg/dL 06/03/2023 12:04 AM EST [facility] Blood Whole blood specimen / Unknown 06/02/2023 11:12 PM EST 06/03/2023 12:04 AM EST Viktoriya Leyva [facility] LAB POINT OF CARE TE ST DOCKED DEVICE UNSOLICITED RESULTS [facility] [address] [place] [address] * (ABNORMAL) GLUCOSE METER, POINT OF CARE (06/02/2023 5:42 PM EST) Glucose Meter 134(H) 70 - 120 mg/dL 06/02/2023 5:49 PM EST [facility] Blood Whole blood specimen / Unknown 06/02/2023 5:42 PM EST 06/02/2023 5:49 PM EST [facility] PO[facility]ARE TE ST DOCKED DEVICE UNSOLICITED RESULTS [facility] [address] [place] [address] * (ABNORMAL) GLUCOSE METER, POINT OF CARE (06/02/2023 12:49 PM EST) Glucose Meter 144(H) 70 - 120 mg/dL 06/02/2023 12:53 PM EST [facility] Blood Whole blood specimen / Unknown 06/02/2023 12:49 PM EST 06/02/2023 12:53 PM EST Viktoriya Leyva [facility] LAB POINT OF CARE TE ST DOCKED DEVICE UNSOLICITED RESULTS [facility] [address] [place] [address] * (ABNORMAL) GLUCOSE METER, POINT OF CARE (06/02/2023 5:18 AM EST) Glucose Meter 182(H) 70 - 120 mg/dL 06/02/2023 5:22 AM EST [facility] Blood Whole blood specimen / Unknown 06/02/2023 5:18 AM EST 06/02/2023 5:22 AM EST Viktoriya Gordon [facility] POINT OF CARE TE ST DOCKED DEVICE UNSOLICITED RESULTS Performing Organization Address City/[facility]/ZIP Co de Phone Number [facility] [address] [place] [address] * PHOSPHORUS (06/02/2023 4:37 AM EST) Phosphorus 2.5 2.5 - 4.8 mg/dL 06/02/2023 5:44 AM EST LABORATORY [facility] Blood Venous blood specimen / Unknown Venipuncture / Unknown 06/02/2023 4:37 AM EST 06/02/2023 5:15 AM EST Warner Michael MD LAB BLOOD ORDERAB LES [facility] [address] [place] [address] * MAGNESIUM (06/02/2023 4:37 AM EST) Magnesium 1.9 1.5 - 2.6 mg/dL 06/02/2023 5:44 AM EST [facility] Blood Venous blood specimen / Unknown Venipuncture / Unknown 06/02/2023 4:37 AM EST 06/02/2023 5:15 AM EST Warner Michael MD LAB BLOOD ORDERAB LES [facility] [address] [place] [address] * (ABNORMAL) BASIC METABOLIC PANEL (06/02/2023 4:37 AM EST) BUN 18 6 - 20 mg/dL 06/02/2023 5:44 AM EST [facility] Creatinine 0.6 0.6 - 1.2 mg/dL 06/02/2023 5:44 AM EST [facility] Estimated Glomerular Filtration Rate >90 >=60 mL/min 06/02/2023 5:44 AM EST [facility] Comment:eGFR is calculated b ased on the CKD-EPI 2020 equation Sodium 137 135 - 146 mmol/L 06/02/2023 5:44 AM EST [facility] Potassium 4.7 3.5 - 5.1 mmol/L 06/02/2023 5:44 AM EST [facility] Chloride 102 98 - 107 mmol/L 06/02/2023 5:44 AM EST [facility] CO2 30 22 - 32 mmol/L 06/02/2023 5:44 AM EST [facility] Anion Gap 5(L) 7 - 15 mmol/L 06/02/2023 5:44 AM EST [facility] Glucose 152(H) 70 - 120 mg/dL 06/02/2023 5:44 AM EST [facility] Calcium 8.0(L) 8.4 - 10.2 mg/dL 06/02/2023 5:44 AM EST [facility] Blood Venous blood specimen / Unknown Venipuncture / Unknown 06/02/2023 4:37 AM EST 06/02/2023 5:15 AM EST Warner Michael MD LAB BLOOD ORDERAB LES [facility] [address] [place] [address] * (ABNORMAL) CBC (06/02/2023 4:37 AM EST) WBC 7.44 4.00 - 10.80 K/uL 06/02/2023 5:25 AM EST [facility] RBC 2.57 4.50 - 5.25 M/uL 06/02/2023 5:25 AM EST [facility] HGB 8.3(L) 14.0 - 16.8 g/dL 06/02/2023 5:25 AM EST [facility] HCT 26.6(L) 40.0 - 48.4 % 06/02/2023 5:25 AM EST [facility] MCV 103.5 82.0 - 99.5 fL 06/02/2023 5:25 AM EST [facility] MCH 32.3 27.0 - 34.0 pg 06/02/2023 5:25 AM EST [facility] MCHC 31.2 32.0 - 36.0 g/dL 06/02/2023 5:25 AM EST [facility] RDW 18.1 11.5 - 15.5 % 06/02/2023 5:25 AM EST [facility] PLT 159 140 - 400 K/uL 06/02/2023 5:25 AM EST [facility] MPV 9.7 6.6 - 11.1 fL 06/02/2023 5:25 AM EST [facility] nRBCs 0 <=0 /100 WBCs 06/02/2023 5:25 AM EST [facility] Blood Venous blood specimen / Unknown Venipuncture / Unknown 06/02/2023 4:37 AM EST 06/02/2023 5:15 AM EST Warner Michael MD LAB BLOOD ORDERAB LES [facility] [address] [place] [address] * (ABNORMAL) GLUCOSE METER, POINT OF CARE (06/01/2023 11:18 PM EST) Glucose Meter 262(H) 70 - 120 mg/dL 06/02/2023 5:21 AM EST [facility] Blood Whole blood specimen / Unknown 06/01/2023 11:18 PM EST 06/02/2023 5:21 AM EST Viktoriya Leyva Onursal DO LAB POINT OF CARE TE ST DOCKED DEVICE UNSOLICITED RESULTS [facility] [address] [place] [address] * GLUCOSE METER, POINT OF CARE (06/01/2023 5:14 PM EST) Glucose Meter 112 70 - 120 mg/dL 06/02/2023 5:21 AM EST [facility] Blood Whole blood specimen / Unknown 06/01/2023 5:14 PM EST 06/02/2023 5:21 AM EST [facility] POINT OF CARE TE ST DOCKED DEVICE UNSOLICITED RESULTS Performing Organization Address City/[facility]/ZIP Co de Phone Number [facility] [address] [place] [address] * (ABNORMAL) GLUCOSE METER, POINT OF CARE (06/01/2023 11:28 AM EST) Glucose Meter 220(H) 70 - 120 mg/dL 06/02/2023 5:21 AM EST [facility] Blood Whole blood specimen / Unknown 06/01/2023 11:28 AM EST 06/02/2023 5:21 AM EST [facility]toriya Le[facility] DO LAB POINT OF CARE TE ST DOCKED DEVICE UNSOLICITED RESULTS [facility] [address] [place] [address] * (ABNORMAL) GLUCOSE METER, POINT OF CARE (06/01/2023 5:07 AM EST) Glucose Meter 137(H) 70 - 120 mg/dL 06/01/2023 5:21 AM EST [facility] Blood Whole blood specimen / Unknown 06/01/2023 5:07 AM EST 06/01/2023 5:21 AM EST Judi Styles MD LAB POINT OF CARE TEST DOCKED DEVICE UNSOLICITED RESULTS [facility] [address] [place] [address] * PHOSPHORUS (06/01/2023 4:44 AM EST) Phosphorus 2.7 2.5 - 4.8 mg/dL 06/01/2023 5:25 AM EST LABORATORY [facility] Blood Venous blood specimen / Unknown Venipuncture / Unknown 06/01/2023 4:44 AM EST 06/01/2023 4:55 AM EST Warner Michael MD LAB BLOOD ORDERAB LES LAB[facility]ATORY [facility] [address] [place] [address] * MAGNESIUM (06/01/2023 4:44 AM EST) Magnesium 2.0 1.5 - 2.6 mg/dL 06/01/2023 5:25 AM EST LAB[facility]ATORY [facility] Blood Venous blood specimen / Unknown Venipuncture / Unknown 06/01/2023 4:44 AM EST 06/01/2023 4:55 AM EST Warner Michael MD LAB BLOOD ORDERAB LES Performing Organization Address City/[facility]/ZIP Co de Phone Number LABORATORY [facility] [address] [place] [address] * (ABNORMAL) BASIC METABOLIC PANEL (06/01/2023 4:44 AM EST) BUN 16 6 - 20 mg/dL 06/01/2023 5:25 AM EST LAB[facility]ATORY [facility] Creatinine 0.5(L) 0.6 - 1.2 mg/dL 06/01/2023 5:25 AM EST [facility] Estimated Glomerular Filtration Rate >90 >=60 mL/min 06/01/2023 5:25 AM EST [facility] Comment:eGFR is calculated b ased on the CKD-EPI 2020 equation Sodium 137 135 - 146 mmol/L 06/01/2023 5:25 AM EST [facility] Potassium 4.2 3.5 - 5.1 mmol/L 06/01/2023 5:25 AM EST [facility] Chloride 104 98 - 107 mmol/L 06/01/2023 5:25 AM EST [facility] CO2 30 22 - 32 mmol/L 06/01/2023 5:25 AM EST [facility] Anion Gap 3(L) 7 - 15 mmol/L 06/01/2023 5:25 AM EST [facility] Glucose 128(H) 70 - 120 mg/dL 06/01/2023 5:25 AM EST [facility] Calcium 7.9(L) 8.4 - 10.2 mg/dL 06/01/2023 5:25 AM EST [facility] Blood Venous blood specimen / Unknown Venipuncture / Unknown 06/01/2023 4:44 AM EST 06/01/2023 4:55 AM EST Warner Michael MD LAB BLOOD ORDERAB LES [facility] Organization Address City/State/ZIP Co de Phone Number LABORATORY [facility] [address] [place] [address] * (ABNORMAL) CBC (06/01/2023 4:44 AM EST) WBC 5.91 4.00 - 10.80 K/uL 06/01/2023 5:04 AM EST [facility] RBC 2.53 4.50 - 5.25 M/uL 06/01/2023 5:04 AM EST [facility] HGB 8.2(L) 14.0 - 16.8 g/dL 06/01/2023 5:04 AM EST [facility] HCT 26.0(L) 40.0 - 48.4 % 06/01/2023 5:04 AM EST [facility] MCV 102.8 82.0 - 99.5 fL 06/01/2023 5:04 AM EST [facility] MCH 32.4 27.0 - 34.0 pg 06/01/2023 5:04 AM EST LAB[facility]ATORY [facility] MCHC 31.5 32.0 - 36.0 g/dL 06/01/2023 5:04 AM EST LAB[facility]ORY [facility] RDW 18.1 11.5 - 15.5 % 06/01/2023 5:04 AM EST LAB[facility]ATORY [facility] PLT 144 140 - 400 K/uL 06/01/2023 5:04 AM EST LAB[facility]ORY [facility] MPV 9.3 6.6 - 11.1 fL 06/01/2023 5:04 AM EST LAB[facility]ORY [facility] nRBCs 0 <=0 /100 WBCs 06/01/2023 5:04 AM EST LAB[facility]ORY [facility] Blood Venous blood specimen / Unknown Venipuncture / Unknown 06/01/2023 4:44 AM EST 06/01/2023 4:55 AM EST Warner Michael MD LAB BLOOD ORDERAB LES LABORATORY [facility] [address] [place] [address] * (ABNORMAL) GLUCOSE METER, POINT OF CARE (06/01/2023 12:40 AM EST) Glucose Meter 261(H) 70 - 120 mg/dL 06/01/2023 5:21 AM EST [facility] Blood Whole blood specimen / Unknown 06/01/2023 12:40 AM EST 06/01/2023 5:21 AM EST Judi Styles MD LAB POINT OF CARE TEST DOCKED DEVICE UNSOLICITED RESULTS [facility] [address] [place] [address] * GLUCOSE METER, POINT OF CARE (05/31/2023 5:05 PM EST) Glucose Meter 120 70 - 120 mg/dL 06/01/2023 5:21 AM EST [facility] Blood Whole blood specimen / Unknown 05/31/2023 5:05 PM EST 06/01/2023 5:20 AM EST Judi Styles MD LAB POINT OF CARE TEST DOCKED DEVICE UNSOLICITED RESULTS Performing Organization Address City/[facility]/ZIP Co de Phone Number [facility] [address] [place] [address] * (ABNORMAL) GLUCOSE METER, POINT OF CARE (05/31/2023 11:36 AM EST) Glucose Meter 198(H) 70 - 120 mg/dL 06/01/2023 5:21 AM EST [facility] Blood Whole blood specimen / Unknown 05/31/2023 11:36 AM EST 06/01/2023 5:21 AM EST Judi Styles MD LAB POINT OF CARE TEST DOCKED DEVICE UNSOLICITED RESULTS Performing Organization Address City/[facility]/ZIP Co de Phone Number [facility] [address] [place] [address] * (ABNORMAL) GLUCOSE METER, POINT OF CARE (05/31/2023 5:12 AM EST) Glucose Meter 213(H) 70 - 120 mg/dL 05/31/2023 5:16 AM EST [facility] Blood Whole blood specimen / Unknown 05/31/2023 5:12 AM EST 05/31/2023 5:16 AM EST Judi Styles MD LAB POINT OF CARE TEST DOCKED DEVICE UNSOLICITED RESULTS [facility] [address] [place] [address] * (ABNORMAL) PHOSPHORUS (05/31/2023 5:01 AM EST) Phosphorus 2.3(L) 2.5 - 4.8 mg/dL 05/31/2023 5:38 AM EST [facility] Blood Venous blood specimen / Unknown Venipuncture / Unknown 05/31/2023 5:01 AM EST 05/31/2023 5:06 AM EST Warner Michael MD LAB BLOOD ORDERAB LES [facility] [address] [place] [address] * MAGNESIUM (05/31/2023 5:01 AM EST) Magnesium 2.0 1.5 - 2.6 mg/dL 05/31/2023 5:38 AM EST [facility] Blood Venous blood specimen / Unknown Venipuncture / Unknown 05/31/2023 5:01 AM EST 05/31/2023 5:06 AM EST Warner Michael MD LAB BLOOD ORDERAB LES Performing Organization Address [facility] Co de Phone Number [facility] [address] [place] [address] * (ABNORMAL) BASIC METABOLIC PANEL (05/31/2023 5:01 AM EST) BUN 13 6 - 20 mg/dL 05/31/2023 5:38 AM EST [facility] Creatinine 0.5(L) 0.6 - 1.2 mg/dL 05/31/2023 5:38 AM EST [facility] Estimated Glomerular Filtration Rate >90 >=60 mL/min 05/31/2023 5:38 AM EST [facility] Comment:eGFR is calculated b ased on the CKD-EPI 2020 equation Sodium 138 135 - 146 mmol/L 05/31/2023 5:38 AM EST [facility] Potassium 4.4 3.5 - 5.1 mmol/L 05/31/2023 5:38 AM EST [facility] Chloride 104 98 - 107 mmol/L 05/31/2023 5:38 AM EST [facility] CO2 27 22 - 32 mmol/L 05/31/2023 5:38 AM EST [facility] Anion Gap 7 7 - 15 mmol/L 05/31/2023 5:38 AM EST [facility] Glucose 219(H) 70 - 120 mg/dL 05/31/2023 5:38 AM EST [facility] Calcium 7.7(L) 8.4 - 10.2 mg/dL 05/31/2023 5:38 AM EST [facility] Blood Venous blood specimen / Unknown Venipuncture / Unknown 05/31/2023 5:01 AM EST 05/31/2023 5:06 AM EST Warner Michael MD LAB BLOOD ORDERAB LES [facility] [address] [place] [address] * (ABNORMAL) CBC (05/31/2023 5:01 AM EST) WBC 7.14 4.00 - 10.80 K/uL 05/31/2023 5:18 AM EST [facility] RBC 2.91 4.50 - 5.25 M/uL 05/31/2023 5:18 AM EST [facility] HGB 9.4(L) 14.0 - 16.8 g/dL 05/31/2023 5:18 AM EST [facility] HCT 30.1(L) 40.0 - 48.4 % 05/31/2023 5:18 AM EST [facility] MCV 103.4 82.0 - 99.5 fL 05/31/2023 5:18 AM EST [facility] MCH 32.3 27.0 - 34.0 pg 05/31/2023 5:18 AM EST [facility] MCHC 31.2 32.0 - 36.0 g/dL 05/31/2023 5:18 AM EST [facility] RDW 18.0 11.5 - 15.5 % 05/31/2023 5:18 AM EST [facility] PLT 160 140 - 400 K/uL 05/31/2023 5:18 AM EST [facility] MPV 9.1 6.6 - 11.1 fL 05/31/2023 5:18 AM EST [facility] nRBCs 0 <=0 /100 WBCs 05/31/2023 5:18 AM EST [facility] Blood Venous blood specimen / Unknown Venipuncture / Unknown 05/31/2023 5:01 AM EST 05/31/2023 5:06 AM EST Warner Michael MD LAB BLOOD ORDERAB LES LABORATORY [facility] [address] [place] [address] * (ABNORMAL) GLUCOSE METER, POINT OF CARE (05/30/2023 11:56 PM EST) Glucose Meter 197(H) 70 - 120 mg/dL 05/31/2023 9:57 AM EST [facility] Blood Whole blood specimen / Unknown 05/30/2023 11:56 PM EST 05/31/2023 9:57 AM EST Judi Stylse MD LAB POINT OF CARE TEST DOCKED DEVICE UNSOLICITED RESULTS Performing Organization Address City/[facility]/ZIP Co de Phone Number [facility] [address] [place] [address] * (ABNORMAL) GLUCOSE METER, POINT OF CARE (05/30/2023 5:10 PM EST) Glucose Meter 178(H) 70 - 120 mg/dL 05/31/2023 9:57 AM EST [facility] Blood Whole blood specimen / Unknown 05/30/2023 5:10 PM EST 05/31/2023 9:57 AM EST Judi Styles MD LAB POINT OF CARE TEST DOCKED DEVICE UNSOLICITED RESULTS Performing Organization Address City/[facility]/ZIP Co de Phone Number [facility] [address] [place] [address] * (ABNORMAL) GLUCOSE METER, POINT OF CARE (05/30/2023 11:53 AM EST) Glucose Meter 146(H) 70 - 120 mg/dL 05/31/2023 9:56 AM EST [facility] Blood Whole blood specimen / Unknown 05/30/2023 11:53 AM EST 05/31/2023 9:56 AM EST Judi Styles MD LAB POINT OF CARE TEST DOCKED DEVICE UNSOLICITED RESULTS [facility] [address] [place] [address] * GLUCOSE METER, POINT OF CARE (05/30/2023 5:38 AM EST) Glucose Meter 113 70 - 120 mg/dL 05/30/2023 5:40 AM EST [facility] Blood Whole blood specimen / Unknown 05/30/2023 5:38 AM EST 05/30/2023 5:40 AM EST Judi Styles MD LAB POINT OF CARE TEST DOCKED DEVICE UNSOLICITED RESULTS Performing Organization Address City/[facility] Co de Phone Number [facility] [address] [place] [address] * (ABNORMAL) PHOSPHORUS (05/30/2023 4:47 AM EST) Phosphorus 2.4(L) 2.5 - 4.8 mg/dL 05/30/2023 5:23 AM EST [facility] Blood Venous blood specimen / Unknown Venipuncture / Unknown 05/30/2023 4:47 AM EST 05/30/2023 4:54 AM EST Warner Michael MD LAB BLOOD ORDERAB LES Performing Organization Address City/[facility] Co de Phone Number [facility] [address] [place] [address] * MAGNESIUM (05/30/2023 4:47 AM EST) Magnesium 2.0 1.5 - 2.6 mg/dL 05/30/2023 5:23 AM EST [facility] Blood Venous blood specimen / Unknown Venipuncture / Unknown 05/30/2023 4:47 AM EST 05/30/2023 4:54 AM EST Warner Michael MD LAB BLOOD ORDERAB LES [facility] [address] [place] [address] * (ABNORMAL) BASIC METABOLIC PANEL (05/30/2023 4:47 AM EST) BUN 15 6 - 20 mg/dL 05/30/2023 5:23 AM EST [facility] Creatinine 0.6 0.6 - 1.2 mg/dL 05/30/2023 5:23 AM EST [facility] Estimated Glomerular Filtration Rate >90 >=60 mL/min 05/30/2023 5:23 AM EST [facility] Comment:eGFR is calculated b ased on the CKD-EPI 2020 equation Sodium 142 135 - 146 mmol/L 05/30/2023 5:23 AM EST [facility] Potassium 3.7 3.5 - 5.1 mmol/L 05/30/2023 5:23 AM EST [facility] Chloride 105 98 - 107 mmol/L 05/30/2023 5:23 AM EST [facility] CO2 30 22 - 32 mmol/L 05/30/2023 5:23 AM EST [facility] Anion Gap 7 7 - 15 mmol/L 05/30/2023 5:23 AM EST [facility] Glucose 119 70 - 120 mg/dL 05/30/2023 5:23 AM EST [facility] Calcium 7.7(L) 8.4 - 10.2 mg/dL 05/30/2023 5:23 AM EST [facility] Blood Venous blood specimen / Unknown Venipuncture / Unknown 05/30/2023 4:47 AM EST 05/30/2023 4:54 AM EST Warner Michael MD LAB BLOOD ORDERAB LES Performing Organization Address City/State/[facility] Co de Phone Number [facility] [address] [place] [address] * (ABNORMAL) CBC (05/30/2023 4:47 AM EST) WBC 7.05 4.00 - 10.80 K/uL 05/30/2023 5:07 AM EST [facility] RBC 2.64 4.50 - 5.25 M/uL 05/30/2023 5:07 AM EST [facility] HGB 8.5(L) 14.0 - 16.8 g/dL 05/30/2023 5:07 AM EST [facility] HCT 27.8(L) 40.0 - 48.4 % 05/30/2023 5:07 AM EST [facility] MCV 105.3 82.0 - 99.5 fL 05/30/2023 5:07 AM EST [facility] MCH 32.2 27.0 - 34.0 pg 05/30/2023 5:07 AM EST [facility] MCHC 30.6 32.0 - 36.0 g/dL 05/30/2023 5:07 AM EST [facility] RDW 18.3 11.5 - 15.5 % 05/30/2023 5:07 AM EST [facility] PLT 154 140 - 400 K/uL 05/30/2023 5:07 AM EST [facility] MPV 9.0 6.6 - 11.1 fL 05/30/2023 5:07 AM EST [facility] nRBCs 0 <=0 /100 WBCs 05/30/2023 5:07 AM EST [facility] Blood Venous blood specimen / Unknown Venipuncture / Unknown 05/30/2023 4:47 AM EST 05/30/2023 4:54 AM EST Warner Michael MD LAB BLOOD ORDERAB LES LABORATORY [facility] [address], [place] [address] * GLUCOSE METER, POINT OF CARE (05/30/2023 12:07 AM EST) [facility] Glucose Meter 103 70 - 120 mg/dL 05/30/2023 12:11 AM EST [facility] Blood Whole blood specimen / Unknown 05/30/2023 12:07 AM EST 05/30/2023 12:11 AM EST Judi Styles MD LAB POINT OF CARE TEST DOCKED DEVICE UNSOLICITED RESULTS [facility] [address] [place] [address] * GLUCOSE METER, POINT OF CARE (05/29/2023 5:56 PM EST) [facility] Glucose Meter 97 70 - 120 mg/dL 05/29/2023 6:00 PM EST [facility] Blood Whole blood specimen / Unknown 05/29/2023 5:56 PM EST 05/29/2023 6:00 PM EST Carlos Deutsch DO LAB POINT OF CARE TE ST DOCKED DEVICE UNSOLICITED RESULTS [facility] [address] [place] [address] * QUANTIFERON TB GOLD PLUS (05/29/2023 4:08 PM EST) [facility] Quantiferon-TB Plus, 1T NEGATIVE NEGATIVE 06/01/2023 10:34 PM EST [employer] [facility] [place] Comment: Negative test result. M. tuberculosis complex infection unlikely. NIL 0.02 IU/mL 06/01/2023 10:34 PM EST [facility] [place] Mitogen-NIL 5.80 IU/mL 06/01/2023 10:34 PM EST [facility] TB1-NIL 0.00 IU/mL 06/01/2023 10:34 PM EST [facility] TB2-NIL <0.00 IU/mL 06/01/2023 10:34 PM EST [facility] [place] Comment: The Nil tube value reflects the background interferon gamma immune response of the patient's blood sample. This value has been subtracted from the patient's displayed TB and Mitogen results. Lower than expected results with the Mitogen tube prevent false-negative Quantiferon readings by detect- ing a patient with a potential immune suppressive condition and/or suboptimal pre-analytical specimen handling. The TB1 Antigen tube is coated with the M. tuberculosis-specific antigens designed to elicit responses from TB antigen primed CD4+ helper T-lymphocytes. The TB2 Antigen tube is coated with the M. tuberculosis-specific antigens designed to elicit responses from TB antigen primed CD4+ helper and CD8+ cytotoxic T-lymphocytes. For additional information, please refer to http://education.Algorithmics.Diet4Life/faq/RMZ662 (This link is being provided for information/ educational purposes only.) Test Performed at: [facility] [address] [place] [address] Chun Mckinley M.D., Ph.D.,Director of Laboratories Blood Venous blood specimen / Unknown Venipuncture / Unknown 05/29/2023 4:08 PM EST 05/29/2023 4:15 PM EST Carlos Deutsch DO LAB BLOOD ORDERABLES [employer] [place] [address] [place] [address] * GLUCOSE METER, POINT OF CARE (05/29/2023 12:05 PM EST) Glucose Meter 104 70 - 120 mg/dL 05/29/2023 12:15 PM EST [facility] Blood Whole blood specimen / Unknown 05/29/2023 12:05 PM EST 05/29/2023 12:15 PM EST Judi Styles MD LAB POINT OF CARE TEST DOCKED DEVICE UNSOLICITED RESULTS Performing Organization Address City/[facility]/ZIP Co de Phone Number [facility] [address] [place] [address] * GLUCOSE METER, POINT OF CARE (05/29/2023 5:48 AM EST) Glucose Meter 97 70 - 120 mg/dL 05/29/2023 5:53 AM EST [facility] Blood Whole blood specimen / Unknown 05/29/2023 5:48 AM EST 05/29/2023 5:53 AM EST Judi Styles MD LAB POINT OF CARE TEST DOCKED DEVICE UNSOLICITED RESULTS Performing Organization Address City/[facility]/ZIP Co de Phone Number [facility] [address] [place] [address] * (ABNORMAL) RETICULOCYTE PANEL (05/29/2023 4:32 AM EST) Reticulocyte Percent 4.92(H) 0.80 - 1.90 % 05/29/2023 4:58 PM EST [facility] Absolute Reticulocyte 125.5(H) 31.3 - 100.1 K/uL 05/29/2023 4:58 PM EST [facility] Immature Reticuloctye Fraction 30.1(H) 2.5 - 20.6 % 05/29/2023 4:58 PM EST [facility] Reticulocyte Hemoglobin 34.4 29.7 - 37.4 pg 05/29/2023 4:58 PM EST [facility] Blood Venous blood specimen / Unknown Venipuncture / Unknown 05/29/2023 4:32 AM EST 05/29/2023 4:44 AM EST Carlos [employer] LAB BLOOD ORDERABLES Performing Organization Address City/[facility]/ZIP Co de Phone Number LABORATORY [place] [address] [place] [address] * FERRITIN (05/29/2023 4:32 AM EST) Ferritin 213 30 - 400 ng/mL 05/29/2023 5:00 PM EST [facility] Blood Venous blood specimen / Unknown Venipuncture / Unknown 05/29/2023 4:32 AM EST 05/29/2023 4:44 AM EST [facility] [employer] LAB BLOOD ORDERABLES Performing Organization Address [facility]/ZIP Co de Phone Number LAB[facility]ATORY [place] [address] [place] [address] * (ABNORMAL) IRON SCREEN, INCLUDING TIBC (05/29/2023 4:32 AM EST) Iron 34(L) 45 - 176 ug/dL 05/29/2023 4:29 PM EST [facility] Iron Binding Capacity 132(L) 250 - 425 ug/dL 05/29/2023 4:29 PM EST [facility] Transferrin Saturation Percent 26 15 - 55 % 05/29/2023 4:29 PM EST [facility] Blood Venous blood specimen / Unknown Venipuncture / Unknown 05/29/2023 4:32 AM EST 05/29/2023 4:44 AM EST Carlos Deutsch DO LAB BLOOD ORDERABLES Performing Organization Address City/[facility]/ZIP Co de Phone Number LABORATORY [facility] [address] [place] [address] * PHOSPHORUS (05/29/2023 4:32 AM EST) Phosphorus 3.1 2.5 - 4.8 mg/dL 05/29/2023 5:14 AM EST [facility] Blood Venous blood specimen / Unknown Venipuncture / Unknown 05/29/2023 4:32 AM EST 05/29/2023 4:44 AM EST Warner Michael MD LAB BLOOD ORDERAB LES Performing Organization Address [facility] Co de Phone Number LABORATORY C [address] [place] [address] * MAGNESIUM (05/29/2023 4:32 AM EST) Magnesium 2.1 1.5 - 2.6 mg/dL 05/29/2023 5:14 AM EST [facility] Blood Venous blood specimen / Unknown Venipuncture / Unknown 05/29/2023 4:32 AM EST 05/29/2023 4:44 AM EST Warner Michael MD LAB BLOOD ORDERAB LES Performing Organization Address City/[facility] Co de Phone Number LABORATORY C [address] [place] [address] * (ABNORMAL) BASIC METABOLIC PANEL (05/29/2023 4:32 AM EST) BUN 19 6 - 20 mg/dL 05/29/2023 5:14 AM EST [facility] Creatinine 0.6 0.6 - 1.2 mg/dL 05/29/2023 5:14 AM EST [facility] Estimated Glomerular Filtration Rate >90 >=60 mL/min 05/29/2023 5:14 AM EST [facility] Comment:eGFR is calculated b ased on the CKD-EPI 2020 equation Sodium 139 135 - 146 mmol/L 05/29/2023 5:14 AM EST [facility] Potassium 3.8 3.5 - 5.1 mmol/L 05/29/2023 5:14 AM EST [facility] Chloride 102 98 - 107 mmol/L 05/29/2023 5:14 AM EST [facility] CO2 30 22 - 32 mmol/L 05/29/2023 5:14 AM EST [facility] Anion Gap 7 7 - 15 mmol/L 05/29/2023 5:14 AM EST [facility] Glucose 123(H) 70 - 120 mg/dL 05/29/2023 5:14 AM EST [facility] Calcium 8.1(L) 8.4 - 10.2 mg/dL 05/29/2023 5:14 AM EST [facility] Blood Venous blood specimen / Unknown Venipuncture / Unknown 05/29/2023 4:32 AM EST 05/29/2023 4:44 AM EST Warner Michael MD LAB BLOOD ORDERAB LES Performing Organization Address City/State/[facility] Co de Phone Number LABORATORY [facility] [address] [place] [address] * (ABNORMAL) CBC (05/29/2023 4:32 AM EST) WBC 12.06(H) 4.00 - 10.80 K/uL 05/29/2023 4:53 AM EST [facility] RBC 2.57 4.50 - 5.25 M/uL 05/29/2023 4:53 AM EST [facility] HGB 8.3(L) 14.0 - 16.8 g/dL 05/29/2023 4:53 AM EST [facility] HCT 26.8(L) 40.0 - 48.4 % 05/29/2023 4:53 AM EST [facility] MCV 104.3 82.0 - 99.5 fL 05/29/2023 4:53 AM EST [facility] MCH 32.3 27.0 - 34.0 pg 05/29/2023 4:53 AM EST [facility] MCHC 31.0 32.0 - 36.0 g/dL 05/29/2023 4:53 AM EST [facility] RDW 18.1 11.5 - 15.5 % 05/29/2023 4:53 AM EST LABORATORY [facility] PLT 160 140 - 400 K/uL 05/29/2023 4:53 AM EST LABORATORY [facility] MPV 9.1 6.6 - 11.1 fL 05/29/2023 4:53 AM EST LABORATORY [facility] nRBCs 0 <=0 /100 WBCs 05/29/2023 4:53 AM EST LABORATORY [facility] Blood Venous blood specimen / Unknown Venipuncture / Unknown 05/29/2023 4:32 AM EST 05/29/2023 4:44 AM EST Warner Michael MD LAB BLOOD ORDERAB LES LABORATORY [facility] [address] [place] [address] * (ABNORMAL) GLUCOSE METER, POINT OF CARE (05/29/2023 12:18 AM EST) Glucose Meter 174(H) 70 - 120 mg/dL 05/29/2023 2:37 PM EST [facility] Blood Whole blood specimen / Unknown 05/29/2023 12:18 AM EST 05/29/2023 2:37 PM EST Carlos Deutsch DO LAB POINT OF CARE TE ST DOCKED DEVICE UNSOLICITED RESULTS Performing Organization Address City/[facility]/ZIP Co de Phone Number [facility] [address] [place] [address] * (ABNORMAL) GLUCOSE METER, POINT OF CARE (05/28/2023 5:15 PM EST) Glucose Meter 142(H) 70 - 120 mg/dL 05/28/2023 5:19 PM EST [facility] Blood Whole blood specimen / Unknown 05/28/2023 5:15 PM EST 05/28/2023 5:19 PM EST Judi Styles MD LAB POINT OF CARE TEST DOCKED DEVICE UNSOLICITED RESULTS [facility] [address] [place] [address] * XR CHEST 1 VIEW (05/28/2023 3:13 PM EST) Anatomical Region Laterality Modality Chest Computed Radiogr aphy 05/28/2023 3:40 PM EST Impressions 05/28/2023 3:38 PM EST IMPRESSION 1. Tracheostomy tube appears well position. 2. Patchy bilateral airspace opacities, better evidenced on the recent CT, could represent multifocal infectious process. Narrative 05/28/2023 3:38 PM EST EXAM XR CHEST 1 VIEW - 05/28/2023 3:13 pm HISTORY S/p tracheostomy TECHNIQUE Single portable semi upright view the chest submitted for interpretation. COMPARISON 05/26/2023. FINDINGS Tracheostomy tube is present and appears well aligned. Sternotomy wires are noted. Cardiac size is upper limits of normal. Patchy consolidative changes throughout both lungs, similar to the recent CT. This could again represent a multifocal infectious process. No obvious pneumothorax. The right pleural fluid with better evidenced on the current CT. Old bilateral rib fractures are noted. Old left clavicle fracture. Procedure Note Slim Bermeo MD - 05/28/2023 EXAM XR CHEST 1 VIEW - 05/28/2023 3:13 pm HISTORY S/p tracheostomy TECHNIQUE Single portable semi upright view the chest submitted forinterpretation. COMPARISON 05/26/2023. FINDINGS Tracheostomy tube is present and appears well aligned. Sternotomy wiresare noted. Cardiac size is upper limits of normal. Patchy consolidative changes throughout both lungs, similar to the recentCT. This could again represent a multifocal infectious process. Noobvious pneumothorax. The right pleural fluid with better evidenced onthe current CT. Old bilateral rib fractures are noted. Old left claviclefracture. IMPRESSION IMPRESSION 1. Tracheostomy tube appears well position. 2. Patchy bilateral airspace opacities, better evidenced on the recentCT, could represent multifocal infectious process. Vipul Mcdonald DO RADIOLOGY (RAD GENER AL) * PD-L1 (05/28/2023 2:22 PM EST) PD-L1 Interpretation Immunohistochemical Evaluation of PD-L1 Expression in Tumor Cells and Infiltrating Immune Cells Result: Antibody Clone Block CPS/Intensity Interpretation (CPS) PD-L1 (SP263) A1 25 / 2-3+ ? 20 CPS=Combined Positive Score (percentage of positive tumor and immune cells relative to total number of tumor cells). Disclaimer: This PD-L1 assay is a laboratory developed test (LDT). Although it is not FDA approved, the sensitivity and specificity of the assay has been reported to be comparable with the FDA approved assay (ref. 1 and 2). The test performance characteristics were validated by [employer]. The laboratory is regulated under CLIA as qualified to perform high-complexity testing. This test is used for clinical purposes. It should not be regarded as investigational or for research. Methodology: Immunohistochemical evaluation of this paraffin embedded invasive tumor has been performed with SP263 antibody (Brooks) for PD-L1 protein expression using OptiView DAB IHC detection kit (Brooks). The sensitivity and specificity of the test has been verified in the laboratory with above 95% concordance comparing to the FDA approved assay (Pharmdx 22C3). The assay control immunoreactivity was appropriate. The interpretation was based on the recommended scoring system (ref.3 and 4). Clinical Significance: This PD-L1 assay helps to evaluate the potential benefit of cancer patients from treatment with a drug that targets PD-1, including KEYTRUDA [pembrolizumab] and OPDIVO [nivolumab]. For examples, for patients with non-small cell lung cancer (NSCLC), the recent KEYNOTE-024 study concluded that for first-line pembrolizumab therapy (ref.3), a TPS score of ?50% was determined to be the cutoff for eligibility of treatment; for second-line pembrolizumab therapy following progression with hydaburg-based chemotherapy, the prior KEYNOTE-010 study showed that the overall survival was improved in both the low and high PD-L1 expression subgroups, albeit the benefit was greater in patients with TPS >50% (ref.4); and for OPDIVO therapy, all tumors with ?1% positivity were considered positive. The KEYNOTE-059 study indicated to use a combined positive score (CPS, ref. 5) to measure gastric or gastroesophageal carcinoma; a CPS 1 or high predicted a better response to pembrolizumab. 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 1; PD-L1 expression level CPS ? 20 may be of interest to treating physician but does not determine eligibility for first-line treatment with KEYTRUDA as a single agent. References 1. Mercy LONGO et al. J Thora Oncol. 2017 12:208-222. 2. Carlos SAUCEDO, et al. Clin Cancer Res. 2017 (Epub ahead of print). 3. Thuy M et al., N Engl J Med 2016, 375: 7428-9179. 4. Tarik RS et al., Lancet. 2016 387:0687-6173. 5. Rodriguez Terry et al. N Engl J Med 2017, 376:1015-26. . 06/05/2023 1:25 PM EST LABORATORY [facility] Sign Out Location Pathologist sign out performed at [facility] ([facility]), [address] [place] [address]. 06/05/2023 1:25 PM EST LABORATORY [facility] Tissue Neck structure / Unknown 05/28/2023 2:22 PM EST 06/05/2023 8:33 AM EST Abimael De La Rosa DO LAB PATHOLOGY OR DERABLES LABORATORY [facility] [address] [place] [address] * SURGICAL PATHOLOGY (05/28/2023 2:22 PM EST) Final Diagnosis A. 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 Neck. Received fresh with a container labeled with "Farhad Dash Jr.", "[id number]", "1940" and " right hypopharynx". The specimen consists of 4 0.3-1.5 cm pink-white focally hemorrhagic fragments of soft tissue. A distinct resection margin is not identified. The specimen is wrapped and entirely submitted in A1 Gross By: OSMAN Butler. Neck. Received fresh with a container labeled with "Farhad Dash Jr.", "[id number]", "1940" and " right arytenoid". The specimen consists of 2, 0.3 cm and 0.6 cm valdes-white fragments of soft tissue which are wrapped and entirely submitted B1 Gross By: OSMAN 05/30/2023 1:08 PM EST LABORATORY [facility] Microscopic Description A-B. Sections demonstrate multiple fragments of infiltrative well-differentiate d malignant squamous cell proliferation with pushing borders and few jagged irregular finger-like projections beyond the lamina propria. The tumor shows basal located atypical mitosis, dyskeratosis and squamous pearls. No perineural invasion or angiolymphatic invasion seen. 05/30/2023 1:08 PM EST LABORATORY [facility] Sign Out Location Pathologist sign out performed at [facility] ([facility]), [address] [place] [address]. 05/30/2023 1:08 PM EST LABORATORY [facility] Photographic images and diagrams represent hare findings in this case; they are not intended to replace a complete review of the final diagnostic report. The following statement applies to Flow Cytometry, Histology, In situ Hybridization Assays and Molecular Genetics. This test was developed and performed at [facility] and its performance characteristics determined by [facility] [employer]. It has not been cleared or approved by the U.S. Food and Drug Administration. The FDA has determined that such clearance or approval is not necessary. This test is used for clinical purposes. It should not be regarded as investigational or for research. Special stains, including histochemical stains, and studies using immunologic and SHERRIE methodology (where applicable) are performed with appropriate positive and negative control reactions. 05/30/2023 1:08 PM EST LABORATORY [facility] Tissue Neck structure / Unknown 05/28/2023 2:22 PM EST 05/28/2023 3:04 PM EST Specimen from wound (specimen) Neck structure / Unknown 05/28/2023 2:22 PM EST 05/28/2023 3:04 PM EST Abimael De La Rosa DO LAB PATHOLOGY OR DERABLES LABORATORY [facility] [address] [place] [address] * (ABNORMAL) GLUCOSE METER, POINT OF CARE (05/28/2023 11:37 AM EST) Glucose Meter 161(H) 70 - 120 mg/dL 05/28/2023 11:40 AM EST [facility] Blood Whole blood specimen / Unknown 05/28/2023 11:37 AM EST 05/28/2023 11:40 AM EST Judi Styles MD LAB POINT OF CARE TEST DOCKED DEVICE UNSOLICITED RESULTS Performing Organization Address City/[facility]/ZIP Co de Phone Number [facility] [address] [place] [address] * (ABNORMAL) GLUCOSE METER, POINT OF CARE (05/28/2023 7:55 AM EST) Glucose Meter 176(H) 70 - 120 mg/dL 05/28/2023 8:51 AM EST [facility] Blood Whole blood specimen / Unknown 05/28/2023 7:55 AM EST 05/28/2023 8:51 AM EST Judi Styles MD LAB POINT OF CARE TEST DOCKED DEVICE UNSOLICITED RESULTS [facility] [address] [place] [address] * (ABNORMAL) GLUCOSE METER, POINT OF CARE (05/28/2023 5:45 AM EST) Glucose Meter 134(H) 70 - 120 mg/dL 05/28/2023 5:53 AM EST [facility] Blood Whole blood specimen / Unknown 05/28/2023 5:45 AM EST 05/28/2023 5:53 AM EST Judi Styles MD LAB POINT OF CARE TEST DOCKED DEVICE UNSOLICITED RESULTS [facility] [address] [place] [address] * PHOSPHORUS (05/28/2023 5:45 AM EST) Phosphorus 3.5 2.5 - 4.8 mg/dL 05/28/2023 6:32 AM EST [facility] Blood Venous blood specimen / Unknown Venipuncture / Unknown 05/28/2023 5:45 AM EST 05/28/2023 6:02 AM EST Warner Michael MD LAB BLOOD ORDERAB LES Performing Organization Address [facility] Co de Phone Number LABORATORY [facility] [address] [place] [address] * MAGNESIUM (05/28/2023 5:45 AM EST) Magnesium 2.1 1.5 - 2.6 mg/dL 05/28/2023 6:32 AM EST LABORATORY [facility] Blood Venous blood specimen / Unknown Venipuncture / Unknown 05/28/2023 5:45 AM EST 05/28/2023 6:02 AM EST Warner Michael MD LAB BLOOD ORDERAB LES Performing Organization Address City/[facility] Co de Phone Number LABORATORY [facility] [address] [place] [address] * (ABNORMAL) BASIC METABOLIC PANEL (05/28/2023 5:45 AM EST) BUN 18 6 - 20 mg/dL 05/28/2023 6:32 AM EST [facility] Creatinine 0.6 0.6 - 1.2 mg/dL 05/28/2023 6:32 AM EST [facility] Estimated Glomerular Filtration Rate >90 >=60 mL/min 05/28/2023 6:32 AM EST [facility] Comment:eGFR is calculated b ased on the CKD-EPI 2020 equation Sodium 138 135 - 146 mmol/L 05/28/2023 6:32 AM EST [facility] Potassium 4.3 3.5 - 5.1 mmol/L 05/28/2023 6:32 AM EST [facility] Chloride 99 98 - 107 mmol/L 05/28/2023 6:32 AM EST [facility] CO2 30 22 - 32 mmol/L 05/28/2023 6:32 AM EST [facility] Anion Gap 9 7 - 15 mmol/L 05/28/2023 6:32 AM EST [facility] Glucose 150(H) 70 - 120 mg/dL 05/28/2023 6:32 AM EST [facility] Calcium 8.5 8.4 - 10.2 mg/dL 05/28/2023 6:32 AM EST [facility] Blood Venous blood specimen / Unknown Venipuncture / Unknown 05/28/2023 5:45 AM EST 05/28/2023 6:02 AM EST Warner Michael MD LAB BLOOD ORDERAB LES Performing Organization Address City/State/[facility] Co de Phone Number LAB[facility]ATORY [facility] [address] [place] [address] * (ABNORMAL) CBC (05/28/2023 5:45 AM EST) WBC 10.77 4.00 - 10.80 K/uL 05/28/2023 6:13 AM EST [facility] RBC 2.79 4.50 - 5.25 M/uL 05/28/2023 6:13 AM EST [facility] HGB 9.1(L) 14.0 - 16.8 g/dL 05/28/2023 6:13 AM EST [facility] HCT 28.9(L) 40.0 - 48.4 % 05/28/2023 6:13 AM EST [facility] MCV 103.6 82.0 - 99.5 fL 05/28/2023 6:13 AM EST [facility] MCH 32.6 27.0 - 34.0 pg 05/28/2023 6:13 AM EST [facility] MCHC 31.5 32.0 - 36.0 g/dL 05/28/2023 6:13 AM EST [facility] RDW 17.7 11.5 - 15.5 % 05/28/2023 6:13 AM EST LABORATORY [facility] PLT 195 140 - 400 K/uL 05/28/2023 6:13 AM EST LABORATORY [facility] MPV 9.3 6.6 - 11.1 fL 05/28/2023 6:13 AM EST LABORATORY [facility] nRBCs 0 <=0 /100 WBCs 05/28/2023 6:13 AM EST LABORATORY [facility] Blood Venous blood specimen / Unknown Venipuncture / Unknown 05/28/2023 5:45 AM EST 05/28/2023 6:02 AM EST Warner Michael MD LAB BLOOD ORDERAB LES LABORATORY [facility] [address] [place] [address] * (ABNORMAL) GLUCOSE METER, POINT OF CARE (05/27/2023 11:54 PM EST) Glucose Meter 160(H) 70 - 120 mg/dL 05/28/2023 12:52 AM EST [facility] Blood Whole blood specimen / Unknown 05/27/2023 11:54 PM EST 05/28/2023 12:52 AM EST Judi Styles MD LAB POINT OF CARE TEST DOCKED DEVICE UNSOLICITED RESULTS Performing Organization Address City/[facility]/ZIP Co de Phone Number [facility] [address] [place] [address] * (ABNORMAL) GLUCOSE METER, POINT OF CARE (05/27/2023 6:19 PM EST) Glucose Meter 153(H) 70 - 120 mg/dL 05/27/2023 6:28 PM EST [facility] Blood Whole blood specimen / Unknown 05/27/2023 6:19 PM EST 05/27/2023 6:28 PM EST Judi Styles MD LAB POINT OF CARE TEST DOCKED DEVICE UNSOLICITED RESULTS [facility] [address] [place] [address] * (ABNORMAL) GLUCOSE METER, POINT OF CARE (05/27/2023 12:03 PM EST) Glucose Meter 170(H) 70 - 120 mg/dL 05/27/2023 12:10 PM EST [facility] Blood Whole blood specimen / Unknown 05/27/2023 12:03 PM EST 05/27/2023 12:10 PM EST Judi Styles MD LAB POINT OF CARE TEST DOCKED DEVICE UNSOLICITED RESULTS Performing Organization Address [facility] Co de Phone Number [facility] [address] [place] [address] * (ABNORMAL) GLUCOSE METER, POINT OF CARE (05/27/2023 7:33 AM EST) Glucose Meter 193(H) 70 - 120 mg/dL 05/27/2023 7:36 AM EST [facility] Blood Whole blood specimen / Unknown 05/27/2023 7:33 AM EST 05/27/2023 7:35 AM EST Judi Styles MD LAB POINT OF CARE TEST DOCKED DEVICE UNSOLICITED RESULTS Performing Organization Address [facility] Co de Phone Number [facility] [address] [place] [address] * (ABNORMAL) GLUCOSE METER, POINT OF CARE (05/27/2023 5:32 AM EST) Glucose Meter 191(H) 70 - 120 mg/dL 05/27/2023 5:36 AM EST [facility] Blood Whole blood specimen / Unknown 05/27/2023 5:32 AM EST 05/27/2023 5:36 AM EST Judi Styles MD LAB POINT OF CARE TEST DOCKED DEVICE UNSOLICITED RESULTS Performing Organization Address City/[facility]/ZIP Co de Phone Number [facility] [address] [place] [address] * PHOSPHORUS (05/27/2023 5:25 AM EST) Phosphorus 4.8 2.5 - 4.8 mg/dL 05/27/2023 6:18 AM EST [facility] Blood Venous blood specimen / Unknown Venipuncture / Unknown 05/27/2023 5:25 AM EST 05/27/2023 5:49 AM EST Warner Michael MD LAB BLOOD ORDERAB LES LABORATORY [facility] [address] [place] [address] * MAGNESIUM (05/27/2023 5:25 AM EST) Magnesium 2.0 1.5 - 2.6 mg/dL 05/27/2023 6:18 AM EST LABORATORY [facility] Blood Venous blood specimen / Unknown Venipuncture / Unknown 05/27/2023 5:25 AM EST 05/27/2023 5:49 AM EST Warner Michael MD LAB BLOOD ORDERAB LES LABORATORY [facility] [address] [place] [address] * (ABNORMAL) BASIC METABOLIC PANEL (05/27/2023 5:25 AM EST) BUN 19 6 - 20 mg/dL 05/27/2023 6:18 AM EST LABORATORY [facility] Creatinine 0.6 0.6 - 1.2 mg/dL 05/27/2023 6:18 AM EST LABORATORY [facility] Estimated Glomerular Filtration Rate >90 >=60 mL/min 05/27/2023 6:18 AM EST [facility] Comment:eGFR is calculated b ased on the CKD-EPI 2020 equation Sodium 137 135 - 146 mmol/L 05/27/2023 6:18 AM EST [facility] Potassium 4.8 3.5 - 5.1 mmol/L 05/27/2023 6:18 AM EST [facility] Chloride 98 98 - 107 mmol/L 05/27/2023 6:18 AM EST [facility] CO2 30 22 - 32 mmol/L 05/27/2023 6:18 AM EST [facility] Anion Gap 9 7 - 15 mmol/L 05/27/2023 6:18 AM EST [facility] Glucose 204(H) 70 - 120 mg/dL 05/27/2023 6:18 AM EST [facility] Calcium 9.0 8.4 - 10.2 mg/dL 05/27/2023 6:18 AM EST [facility] Blood Venous blood specimen / Unknown Venipuncture / Unknown 05/27/2023 5:25 AM EST 05/27/2023 5:49 AM EST Warner Michael MD LAB BLOOD ORDERAB LES LABORATORY [facility] [address] [place] [address] * (ABNORMAL) CBC (05/27/2023 5:25 AM EST) Pathologist [facility] WBC 5.75 4.00 - 10.80 K/uL 05/27/2023 5:59 AM EST [facility] RBC 2.94 4.50 - 5.25 M/uL 05/27/2023 5:59 AM EST [facility] HGB 9.4(L) 14.0 - 16.8 g/dL 05/27/2023 5:59 AM EST [facility] HCT 30.6(L) 40.0 - 48.4 % 05/27/2023 5:59 AM EST [facility] MCV 104.1 82.0 - 99.5 fL 05/27/2023 5:59 AM EST [facility] MCH 32.0 27.0 - 34.0 pg 05/27/2023 5:59 AM EST [facility] MCHC 30.7 32.0 - 36.0 g/dL 05/27/2023 5:59 AM EST [facility] RDW 17.4 11.5 - 15.5 % 05/27/2023 5:59 AM EST [facility] PLT 206 140 - 400 K/uL 05/27/2023 5:59 AM EST [facility] MPV 9.5 6.6 - 11.1 fL 05/27/2023 5:59 AM EST LABORATORY [facility] nRBCs 0 <=0 /100 WBCs 05/27/2023 5:59 AM EST LABORATORY [facility] Blood Venous blood specimen / Unknown Venipuncture / Unknown 05/27/2023 5:25 AM EST 05/27/2023 5:49 AM EST Warner Michael MD LAB BLOOD ORDERAB LES Performing Organization Address City/[facility] Co de Phone Number LABORATORY [facility] [address] [place] [address] * (ABNORMAL) HEMOGLOBIN A1C (05/27/2023 5:25 AM EST) Hemoglobin A1C 6.0(H) 4.0 - 5.6 % 05/27/2023 6:09 AM EST LABORATORY [facility] Comment:The use of HbA1c to monitor glycemic status is based on normal hemoglobin and HbA composition. This test should not be used in patients with abnormal hemoglobin that affects the half life of the red blood cell or the in vivo glycation rates. Estimated Average Glucose 126(H) <126 mg/dL 05/27/2023 6:09 AM EST LABORATORY [facility] Blood Venous blood specimen / Unknown Venipuncture / Unknown 05/27/2023 5:25 AM EST 05/27/2023 5:49 AM EST Warner Michael MD LAB BLOOD ORDERAB LES Performing Organization Address City/[facility] Co de Phone Number LABORATORY [facility] [address] [place] [address] * (ABNORMAL) GLUCOSE METER, POINT OF CARE (05/26/2023 11:50 PM EST) Glucose Meter 204(H) 70 - 120 mg/dL 05/27/2023 12:21 AM EST [facility] Blood Whole blood specimen / Unknown 05/26/2023 11:50 PM EST 05/27/2023 12:21 AM EST Judi Styles MD LAB POINT OF CARE TEST DOCKED DEVICE UNSOLICITED RESULTS [facility] [address] [place] [address] * (ABNORMAL) QUANTIFERON TB GOLD PLUS (05/26/2023 6:22 PM EST) [facility] Quantiferon-TB Plus, 1T SEE BELOW(A) 05/29/2023 12:29 PM EST [facility] [place] Comment: QuantiFERON-TB Plus,1T INDETERMINATE * Reference range: NEGATIVE Results are indeterminate for response to ESAT-6 and/or CFP-10 test antigens. NIL 0.01 IU/mL 05/29/2023 12:29 PM EST [facility] Mitogen-NIL 0.18 IU/mL 05/29/2023 12:29 PM EST [facility] TB1-NIL 0.00 IU/mL 05/29/2023 12:29 PM EST [facility] TB2-NIL 0.00 IU/mL 05/29/2023 12:29 PM EST [facility] [place] Comment: The Nil tube value reflects the background interferon gamma immune response of the patient's blood sample. This value has been subtracted from the patient's displayed TB and Mitogen results. Lower than expected results with the Mitogen tube prevent false-negative Quantiferon readings by detect- ing a patient with a potential immune suppressive condition and/or suboptimal pre-analytical specimen handling. The TB1 Antigen tube is coated with the M. tuberculosis-specific antigens designed to elicit responses from TB antigen primed CD4+ helper T-lymphocytes. The TB2 Antigen tube is coated with the M. tuberculosis-specific antigens designed to elicit responses from TB antigen primed CD4+ helper and CD8+ cytotoxic T-lymphocytes. For additional information, please refer to http://education.Algorithmics.Diet4Life/faq/PPJ479 (This link is being provided for information/ educational purposes only.) Test Performed at: [facility] [address] Chun Mckinley M.D., Ph.D.,Director of Laboratories Blood Venous blood specimen / Unknown Venipuncture / Unknown 05/26/2023 6:22 PM EST 05/26/2023 6:28 PM EST Warner Michael MD LAB BLOOD ORDERAB LES [facility] [place] [address] [place] [address] * (ABNORMAL) GLUCOSE METER, POINT OF CARE (05/26/2023 5:56 PM EST) Glucose Meter 220(H) 70 - 120 mg/dL 05/26/2023 5:57 PM EST [facility] Blood Whole blood specimen / Unknown 05/26/2023 5:56 PM EST 05/26/2023 5:57 PM EST Judi Styles MD LAB POINT OF CARE TEST DOCKED DEVICE UNSOLICITED RESULTS [facility] [address] [place] [address] * (ABNORMAL) URINALYSIS, REFLEX TO MICROSCOPIC (05/26/2023 5:31 PM EST) Color, Urine Light Yellow Colorless, Light Yellow, Yellow, Dark Yellow 05/26/2023 6:38 PM EST [facility] Clarity, Urine Clear Clear 05/26/2023 6:38 PM EST LABORATORY [facility] Glucose, Urine Negative Negative mg/dL 05/26/2023 6:38 PM EST LABORATORY [facility] Bilirubin, Urine Negative Negative 05/26/2023 6:38 PM EST LABORATORY C Ketone, Urine Negative Negative mg/dL 05/26/2023 6:38 PM EST LABORATORY C Specific [place], Urine 1.044(H) 1.003 - 1.030 05/26/2023 6:38 PM EST LABORATORY [facility] Blood, Urine Small(A) Negative 05/26/2023 6:38 PM EST LABORATORY [facility] pH, Urine 8.0(H) 5.0 - 7.5 Units 05/26/2023 6:38 PM EST LABORATORY [facility] Protein, Urine Negative Negative mg/dL 05/26/2023 6:38 PM EST LABORATORY [facility] Urobilinogen, Urine Normal Normal mg/dL 05/26/2023 6:38 PM EST [facility] Nitrite, Urine Negative Negative 05/26/2023 6:38 PM EST [facility] Esterase, Urine Negative Negative 05/26/2023 6:38 PM EST [facility] RBC, Urine 30-49(A) 0 - 2 /HPF 05/26/2023 6:38 PM EST [facility] WBC, Urine 3-5(A) 0 - 2 /HPF 05/26/2023 6:38 PM EST [facility] Bacteria, Urine 0-25 0 - 25 /HPF 05/26/2023 6:38 PM EST [facility] Urine Urine specimen / Unknown Non-blood Collection / Unknown 05/26/2023 5:31 PM EST 05/26/2023 6:28 PM EST Warner Michael MD LAB URINE ORDERAB LES Performing Organization Address [facility] Co de Phone Number LABORATORY [facility] [address] [place] [address] * MRSA SCREEN, PCR (05/26/2023 5:31 PM EST) [facility] MRSA PCR Result Negative Negative 9:57 PM EST LABORATORY [facility] Comment:No Methicillin resis tant Staphylococcus aureus detected by PCR (amplified probe). Upper Respiratory (Nares, Bilateral) Non-blood Collection / Unknown 05/26/2023 5:31 PM EST 05/26/2023 7:50 PM EST Warner Michael MD LAB MICRO - GENER AL ORDERABLES Performing Organization Address [facility] de Phone Number LABORATORY [facility] [address] [place] [address] * CT PULMONARY EMBOLUS W CONTRAST (05/26/2023 4:50 PM EST) Anatomical Region Laterality Modality Chest, Cardio, Body Computed Pete ography 05/26/2023 5:53 PM EST Impressions 05/26/2023 5:51 PM EST IMPRESSION 1. No pulmonary embolism is identified. 2. Small to moderate right pleural effusion with fluid extending into the right major fissure. 3. Ill-defined bilateral ground-glass opacities with a few patchy/nodular consolidative opacities in the right upper lobe, which may be infectious in etiology. Follow-up to resolution is recommended. 4. A few pulmonary nodules measure up to 6 millimeters. Fleischner Society recommendation for management of multiple incidental 6-[address] at 3-6 months in low and high risk patients. 5. The main pulmonary artery is dilated to 3.2 cm, which may be seen in the setting of pulmonary hypertension. 6. Borderline ectasia of the ascending aorta to 3.9 cm. 7. Enlarged right hilar lymph nodes, likely reactive. Narrative 05/26/2023 5:51 PM EST EXAM EXAM: CT PULMONARY EMBOLUS W CONTRAST DATE TIME: 05/26/2023 - 05/26/2023 4:50 pm HISTORY 82 y/o M possible PE. TECHNIQUE CTA chest was performed with IV contrast in the pulmonary arterial phase COMPARISON Chest radiograph 05/26/2023. FINDINGS LUNGS AND LARGE AIRWAYS: Near complete opacification of the interlobar and right lower lobe bronchi due to mucosal secretions. Bibasilar atelectatic changes. Ill-defined bilateral ground-glass opacities with a few patchy/nodular consolidative opacities in the right upper lobe. A few pulmonary nodules measure up to 6 millimeters (for example in the right middle lobe on series 4, image 156 and in the left upper lobe on series 4, image 126). PLEURA: Small to moderate right pleural effusion with fluid extending into the right major fissure. VESSELS: Good opacification of the pulmonary arterial tree. No pulmonary embolism is identified. The main pulmonary artery is dilated to 3.2 cm, which may be seen in the setting of pulmonary hypertension. Borderline ectasia of the ascending aorta to 3.9 cm. Atherosclerotic changes of the aorta. Coronary artery calcifications. HEART: Heart is normal in size. No pericardial effusion. MEDIASTINUM AND LYRIC: Enlarged right hilar nodes measuring up to 1.4 cm in short axis, likely reactive (for example 4, 113). CHEST WALL AND LOWER NECK: Within normal limits. VISUALIZED UPPER ABDOMEN: Partially imaged gastrojejunostomy tube. Cholecystectomy. BONES: Status post sternotomy. Degenerative changes of the spine. A few chronic appearing right rib fracture deformities. Procedure Note Omaira Stern MD - 05/26/2023 EXAM EXAM: CT PULMONARY EMBOLUS W CONTRAST DATE TIME: 05/26/2023 - 05/26/2023 4:50 pm HISTORY 82 y/o M possible PE. TECHNIQUE CTA chest was performed with IV contrast in the pulmonary arterial phase COMPARISON Chest radiograph 05/26/2023. FINDINGS LUNGS AND LARGE AIRWAYS: Near complete opacification of the interlobar andright lower lobe bronchi due to mucosal secretions. Bibasilar atelectaticchanges. Ill- defined bilateral ground-glass opacities with a fewpatchy/nodular consolidative opacities in the right upper lobe. A fewpulmonary nodules measure up to 6 millimeters (for example in the rightmiddle lobe on series 4, image 156 and in the left upper lobe on series 4,image 126). PLEURA: Small to moderate right pleural effusion with fluid extending intothe right major fissure. VESSELS: Good opacification of the pulmonary arterial tree. No pulmonaryembolism is identified. The main pulmonary artery is dilated to 3.2 cm,which may be seen in the setting of pulmonary hypertension. Borderlineectasia of the ascending aorta to 3.9 cm. Atherosclerotic changes of theaorta. Coronary artery calcifications. HEART: Heart is normal in size. No pericardial effusion. MEDIASTINUM AND LYRIC: Enlarged right hilar nodes measuring up to 1.4 cm inshort axis, likely reactive (for example 4, 113). CHEST WALL AND LOWER NECK: Within normal limits. VISUALIZED UPPER ABDOMEN: Partially imaged gastrojejunostomy tube.Cholecystectomy. BONES: Status post sternotomy. Degenerative changes of the spine. A fewchronic appearing right rib fracture deformities. IMPRESSION IMPRESSION 1. No pulmonary embolism is identified. 2. Small to moderate right pleural effusion with fluid extending into theright major fissure. 3. Ill-defined bilateral ground-glass opacities with a few patchy/nodularconsolidative opacities in the right upper lobe, which may be infectiousin etiology. Follow-up to resolution is recommended. 4. A few pulmonary nodules measure up to 6 millimeters. [facility] recommendation for management of multiple incidental 6-[address] at 3-6 months in low and high risk patients. 5. The main pulmonary artery is dilated to 3.2 cm, which may be seen inthe setting of pulmonary hypertension. 6. Borderline ectasia of the ascending aorta to 3.9 cm. 7. Enlarged right hilar lymph nodes, likely reactive. Shiv Romero DO RAD CT * CT NECK W CONTRAST (05/26/2023 4:40 PM EST) Anatomical Region Laterality Modality Neck, Head, Sinus Computed Tomog amaya 05/26/2023 5:25 PM EST Impressions 05/26/2023 5:22 PM EST IMPRESSION 1. Mucosal irregularity with soft tissue thickening and enhancement involving the right piriform sinus and right arytenoepiglottic fold. Findings are nonspecific, and correlation with laryngoscopy findings is recommended. Asymmetric medial position of the right arytenoid cartilage may be secondary to vocal cord dysfunction. 2. 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 3. No suspicious cervical lymphadenopathy is identified. 4. Advanced atherosclerosis with severe stenosis of the right internal carotid artery. Narrative 05/26/2023 5:[address] NECK W CONTRAST-05/26/2023 4:40 pm HISTORY stridor TECHNIQUE CT scan of the neck was performed following the administration of intravenous contrast. COMPARISON CT neck dated 11/14/2004 FINDINGS There is mucosal irregularity with soft tissue thickening and enhancement involving the right piriform sinus and right arytenoepiglottic fold. Asymmetric medial position of the right arytenoid cartilage. Focal air is noted along the posterior margin of the cricoid cartilage right of midline, which appears to be extraluminal. Mucus/secretions noted in the posterior oropharynx and hypopharynx. There is no suspicious cervical lymphadenopathy. Advanced atherosclerosis with severe stenosis of the cervical segment of the right internal carotid artery and ulcerated plaque at the right carotid bifurcation. Mild paranasal sinus mucosal thickening. Median sternotomy wires. Partially-imaged right pleural effusion and scarring at the lung apices. Multilevel degenerative changes of the cervical spine. Procedure Note Gilles Pace MD - 05/26/[address] NECK W CONTRAST-05/26/2023 4:40 pm HISTORY stridor TECHNIQUE CT scan of the neck was performed following the administration ofintravenous contrast. COMPARISON CT neck dated 11/14/2004 FINDINGS There is mucosal irregularity with soft tissue thickening and enhancementinvolving the right piriform sinus and right arytenoepiglottic fold.Asymmetric medial position of the right arytenoid cartilage. Focal air isnoted along the posterior margin of the cricoid cartilage right ofmidline, which appears to be extraluminal. Mucus/secretions noted in the posterior oropharynx and hypopharynx. There is no suspicious cervical lymphadenopathy. Advanced atherosclerosis with severe stenosis of the cervical segment ofthe right internal carotid artery and ulcerated plaque at the rightcarotid bifurcation. Mild paranasal sinus mucosal thickening. Median sternotomy wires. Partially-imaged right pleural effusion andscarring at the lung apices. Multilevel degenerative changes of thecervical spine. IMPRESSION IMPRESSION 1. Mucosal irregularity with soft tissue thickening and enhancementinvolving the right piriform sinus and right arytenoepiglottic fold.Findings are nonspecific, and correlation with laryngoscopy findings isrecommended. Asymmetric medial position of the right arytenoid cartilagemay be secondary to vocal cord dysfunction. 2. 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 3. No suspicious cervical lymphadenopathy is identified. 4. Advanced atherosclerosis with severe stenosis of the right internalcarotid artery. Cholo GOULD CT * CULTURE, BLOOD (05/26/2023 3:30 PM EST) Pathologist [facility] Blood Culture Growth No growth 05/31/2023 5:01 PM EST LABORATORY [facility] Blood Venous blood specimen / Unknown Venipuncture / Unknown 05/26/2023 3:30 PM EST 05/26/2023 4:13 PM EST Kamari Smith MD LAB MICRO - GENERAL ORDERABLES LABORATORY [facility] [address] [place] [address] * LACTATE (05/26/2023 3:30 PM EST) Pathologist [facility] Lactate 1.2 0.4 - 2.0 mmol/L 05/26/2023 3:58 PM EST LABORATORY [facility] Blood Venous blood specimen / Unknown Venipuncture / Unknown 05/26/2023 3:30 PM EST 05/26/2023 3:37 PM EST Kamari Smith MD LAB BLOOD ORDERABLE S LABORATORY [facility] [address] [place] [address] * CULTURE, BLOOD (05/26/2023 3:26 PM EST) Pathologist [facility] Blood Culture Growth No growth 05/31/2023 5:01 PM EST LABORATORY [facility] Blood Venous blood specimen / Unknown Venipuncture / Unknown 05/26/2023 3:26 PM EST 05/26/2023 4:13 PM EST Kamari Smith MD LAB MICRO - GENERAL ORDERABLES Performing Organization Address City/[facility]/ZIP Co de Phone Number LABORATORY [facility] [address] [place] [address] * RESPIRATORY PATHOGEN PANEL, PCR (05/26/2023 2:13 PM EST) Pathologist [facility] Adenovirus by PCR Negative Negative 024 4:10 PM EST LABORATORY [facility] Coronavirus 229E by PCR Negative Negative 05/26/2023 4:10 PM EST LABORATORY [facility] Coronavirus HKU1 by PCR Negative Negative 05/26/2023 4:10 PM EST LABORATORY [facility] Coronavirus NL63 by PCR Negative Negative 05/26/2023 4:10 PM EST LABORATORY [facility] Coronavirus OC43 by PCR Negative Negative 05/26/2023 4:10 PM EST LABORATORY [facility] Coronavirus SARS-CoV-2 by PCR Negative Negative 05/26/2023 4:10 PM EST LABORATORY [facility] Human Metapneumovirus by PCR Negative Negative 05/26/2023 4:10 PM EST LABORATORY [facility] Rhinovirus/Enterovi fracisco by PCR Negative Negative 05/26/2023 4:10 PM EST LABORATORY [facility] Influenza A Virus by PCR Negative Negative 05/26/2023 4:10 PM EST LABORATORY [facility] Influenza B Virus by PCR Negative Negative 05/26/2023 4:10 PM EST LABORATORY [facility] Parainfluenza Virus 1 by PCR Negative Negative 05/26/2023 4:10 PM EST LABORATORY [facility] Parainfluenza Virus 2 by PCR Negative Negative 05/26/2023 4:10 PM EST LABORATORY [facility] Parainfluenza Virus 3 by PCR Negative Negative 05/26/2023 4:10 PM EST LABORATORY [facility] Parainfluenza Virus 4 by PCR Negative Negative 05/26/2023 4:10 PM EST LABORATORY [facility] Respiratory Syncytial Virus by PCR Negative Negative 05/26/2023 4:10 PM EST LABORATORY [facility] Bordetella pertussis by PCR Negative Negative 05/26/2023 4:10 PM EST LABORATORY [facility] Chlamydia pneumoniae by PCR Negative Negative 05/26/2023 4:10 PM EST LABORATORY [facility] Mycoplasma pneumoniae by PCR Negative Negative 05/26/2023 4:10 PM EST LABORATORY [facility] Bordetella parapertussis by PCR Negative Negative 05/26/2023 4:10 PM EST LABORATORY [facility] Comment: The primers that detect Rhinovirus may cross react with some Enterorviruses. The validation of bronchial specimens, tracheal aspirates, and throats for this assay was developed and performance characteristics determined by [employer]. The validation of alternate specimen types has not been cleared or approved by the U.S. Food and Drug Administration (FDA). It has been determined that such clearance or approval is not necessary. Upper Respiratory Mid-turbinate nasal swab / Unknown Non-blood Collection / Unknown 05/26/2023 2:13 PM EST 05/26/2023 3:09 PM EST [facility] MICRO - GENERAL ORDERABLES Performing Organization Address City/State/[facility] Co de Phone Number LABORATORY [facility] [address] [place] [address] * XR CHEST 1 VIEW (05/26/2023 2:07 PM EST) Anatomical Region Laterality Modality Chest Computed Radiogr aphy 05/26/2023 2:52 PM EST Impressions 05/26/2023 2:49 PM EST IMPRESSION Indeterminate opacity at the lateral right mid lung and base. This could reflect small loculated right pleural effusion, pneumonia, and/or scarring, given there are chronic right rib fractures that are new since 2009. There is also mild lateral left basilar opacity which could be inflammatory. Added to the ASSISTANT STORE DIRECTOR result communication system at 2:45 p.m. 05/26/2023. Narrative 05/26/2023 2:49 PM EST EXAM XR CHEST 1 VIEW-05/26/2023 2:07 pm HISTORY sob COMPARISON XR chest 01/26/2010. TECHNIQUE Single portable frontal view of the chest. FINDINGS Lines/Tubes: Percutaneous gastrostomy/gastrojejunostomy tube. Lungs/Pleura: Indeterminate opacity at the lateral right mid lung and base. This is new since 01/26/2010. Low lung volumes with basilar interstitial crowding. Mild lateral left basilar opacity. No pneumothorax. Heart/Mediastinum: CABG. Unchanged contours. Bones/Soft Tissues: Remote right rib fractures, new since 01/26/2010. Similar nondisplaced remote lateral left 6th rib fracture. Median sternotomy. Upper Abdomen: Generalized gaseous distention of the visualized bowel. Right upper quadrant clips. Procedure Note TriffoLalit MD - 05/26/2023 EXAM XR CHEST 1 VIEW-05/26/2023 2:07 pm HISTORY sob COMPARISON XR chest 01/26/2010. TECHNIQUE Single portable frontal view of the chest. FINDINGS Lines/Tubes: Percutaneous gastrostomy/gastrojejunostomy tube. Lungs/Pleura: Indeterminate opacity at the lateral right mid lung andbase. This is new since 01/26/2010. Low lung volumes with basilarinterstitial crowding. Mild lateral left basilar opacity. Nopneumothorax. Heart/Mediastinum: CABG. Unchanged contours. Bones/Soft Tissues: Remote right rib fractures, new since 01/26/2010.Similar nondisplaced remote lateral left 6th rib fracture. Mediansternotomy. Upper Abdomen: Generalized gaseous distention of the visualized bowel.Right upper quadrant clips. IMPRESSION IMPRESSION Indeterminate opacity at the lateral right mid lung and base. This couldreflect small loculated right pleural effusion, pneumonia, and/orscarring, given there are chronic right rib fractures that are new [id number]. There is also mild lateral left basilar opacity which could beinflammatory. Added to the ASSISTANT STORE DIRECTOR result communication system at 2:45 p.m. 05/26/2023. Cholo Fitzner DO RADIOLOGY (RAD GENER AL) * (ABNORMAL) DIFFERENTIAL, AUTOMATED (05/26/2023 1:59 PM EST) WBC 9.96 4.00 - 10.80 K/uL 05/26/2023 2:25 PM EST [facility] Neutrophils % 47.8 40.0 - 75.0 % 05/26/2023 2:25 PM EST [facility] Lymphocytes % 42.1(H) 18.0 - 42.0 % 05/26/2023 2:25 PM EST [facility] Monocytes % 8.1 1.0 - 11.0 % 05/26/2023 2:25 PM EST [facility] Eosinophils % 1.1 0.0 - 6.0 % 05/26/2023 2:25 PM EST [facility] Basophils % 0.6 0.0 - 2.0 % 05/26/2023 2:25 PM EST [facility] Immature Granulocytes % 0.3 0.0 - 2.0 % 05/26/2023 2:25 PM EST [facility] Absolute Neutrophils 4.76 1.80 - 7.70 K/uL 05/26/2023 2:25 PM EST [facility] Absolute Lymphocytes 4.19 1.00 - 4.80 K/ul 05/26/2023 2:25 PM EST [facility] Absolute Monocytes 0.81 0.00 - 1.10 K/uL 05/26/2023 2:25 PM EST [facility] Absolute Eosinophils 0.11 0.00 - 0.70 K/uL 05/26/2023 2:25 PM EST [facility] Absolute Basophils 0.06 0.00 - 0.20 K/uL 05/26/2023 2:25 PM EST [facility] Absolute Immature Granulocytes 0.03 0.00 - 0.20 K/uL 05/26/2023 2:25 PM EST [facility] Blood Venous blood specimen / Unknown Venipuncture / Unknown 05/26/2023 1:59 PM EST 05/26/2023 2:14 PM EST Cholo Causey DO LAB BLOOD ORDERABLES [facility] [address] [place] [address] * (ABNORMAL) CBC (05/26/2023 1:59 PM EST) WBC 9.96 4.00 - 10.80 K/uL 05/26/2023 2:25 PM EST [facility] RBC 2.90 4.50 - 5.25 M/uL 05/26/2023 2:25 PM EST [facility] HGB 9.3(L) 14.0 - 16.8 g/dL 05/26/2023 2:25 PM EST [facility] HCT 29.8(L) 40.0 - 48.4 % 05/26/2023 2:25 PM EST [facility] MCV 102.8 82.0 - 99.5 fL 05/26/2023 2:25 PM EST [facility] MCH 32.1 27.0 - 34.0 pg 05/26/2023 2:25 PM EST [facility] MCHC 31.2 32.0 - 36.0 g/dL 05/26/2023 2:25 PM EST [facility] RDW 17.5 11.5 - 15.5 % 05/26/2023 2:25 PM EST [facility] PLT 236 140 - 400 K/uL 05/26/2023 2:25 PM EST [facility] MPV 9.3 6.6 - 11.1 fL 05/26/2023 2:25 PM EST [facility] nRBCs 0 <=0 /100 WBCs 05/26/2023 2:25 PM EST [facility] Blood Venous blood specimen / Unknown Venipuncture / Unknown 05/26/2023 1:59 PM EST 05/26/2023 2:14 PM EST Cholo Causey DO LAB BLOOD ORDERABLES [facility] [address] [place] [address] * (ABNORMAL) BASIC METABOLIC PANEL (05/26/2023 1:59 PM EST) BUN 22(H) 6 - 20 mg/dL 05/26/2023 2:38 PM EST [facility] Creatinine 0.6 0.6 - 1.2 mg/dL 05/26/2023 2:38 PM EST [facility] Estimated Glomerular Filtration Rate >90 >=60 mL/min 05/26/2023 2:38 PM EST [facility] Comment:eGFR is calculated b ased on the CKD-EPI 2020 equation Sodium 133(L) 135 - 146 mmol/L 05/26/2023 2:38 PM EST [facility] Potassium 4.7 3.5 - 5.1 mmol/L 05/26/2023 2:38 PM EST [facility] Chloride 94(L) 98 - 107 mmol/L 05/26/2023 2:38 PM EST [facility] CO2 34(H) 22 - 32 mmol/L 05/26/2023 2:38 PM EST [facility] Anion Gap 5(L) 7 - 15 mmol/L 05/26/2023 2:38 PM EST [facility] Glucose 201(H) 70 - 120 mg/dL 05/26/2023 2:38 PM EST [facility] Calcium 9.2 8.4 - 10.2 mg/dL 05/26/2023 2:38 PM EST [facility] Blood Venous blood specimen / Unknown Venipuncture / Unknown 05/26/2023 1:59 PM EST 05/26/2023 2:07 PM EST Cholo Causey DO LAB BLOOD ORDERABLES [facility] [address] [place] [address] * (ABNORMAL) BLOOD GAS, VENOUS (05/26/2023 1:59 PM EST) Temperature 37.0 C 05/26/2023 2:12 PM EST [facility] pH, Venous 7.378 7.320 - 7.430 units 05/26/2023 2:12 PM EST [facility] pCO2, Venous 60.4(H) 40.0 - 60.0 mmHg 05/26/2023 2:12 PM EST [facility] pO2, Venous 20.8(L) 25.0 - 50.0 mmHg 05/26/2023 2:12 PM EST [facility] Base Excess, Venous 8.5(H) -2.0 - 2.0 mmol/L 05/26/2023 2:12 PM EST [facility] Hemoglobin, Whole Blood 10.0(L) 14.0 - 16.8 g/dL 05/26/2023 2:12 PM EST [facility] Oxyhemoglobin, Venous 24.8(L) 40.0 - 85.0 % total Hgb 05/26/2023 2:12 PM EST [facility] Carboxyhemoglobi n, Whole Blood 1.2 <=1.5 % total Hgb 05/26/2023 2:12 PM EST [facility] Comment:Smokers: 0-9.0 % Methemoglobin, Whole Blood 0.6 <=1.5 % total Hgb 05/26/2023 2:12 PM EST [facility] Reduced Hemoglobin, Venous 73.4 % total Hgb 05/26/2023 2:12 PM EST [facility] O2 Content, Venous 3.5(L) 7.0 - 18.0 %vol 05/26/2023 2:12 PM EST [facility] Bicarbonate, Whole Blood 34.8(H) 23.0 - 31.0 mmol/L 05/26/2023 2:12 PM EST [facility] Blood Venous blood specimen / Unknown Venipuncture / Unknown 05/26/2023 1:59 PM EST 05/26/2023 2:07 PM EST Cholo Causey DO LAB BLOOD ORDERABLES [facility] [address] [place] [address] documented in this encounter Visit Diagnoses Diagnosis Stridor- Primary Screening for cardiovascular condition Screening for other and unspecified cardiovascular conditions Stridor Chest pain Chest pain, unspecified Status post cardiac surgery Vocal cord dysfunction Other diseases of vocal cords Pain Generalized pain Difficult airway for intubation Other and unspecified complications of medical care, not elsewhere classified Laryngeal mass Other diseases of larynx Severe protein-energy malnutrition (HCC) Other severe protein-calorie malnutrition Benign essential hypertension Essential hypertension, benign Carotid stenosis Occlusion and stenosis of carotid artery without mention of cerebral infarction Dyslipidemia, goal LDL below 70 Other and unspecified hyperlipidemia 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 Gastroesophageal reflux disease Esophageal reflux Hypothyroidism Unspecified hypothyroidism Paroxysmal atrial fibrillation (HCC) Atrial fibrillation Type 2 diabetes mellitus without complication (HCC) Type II or unspecified type diabetes mellitus without mention of complication, not stated as uncontrolled Vocal cord dysfunction Other diseases of vocal cords Tracheostomy status (HCC) Tracheostomy status Urinary retention Retention of urine, unspecified Impaired mobility and ADLs Mechanical problems with limbs Goals of care, counseling/discussion Other specified counseling Palliative care encounter Encounter for palliative care Other insomnia Constipation Unspecified constipation 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 Given 05/29/2023 6:05 AM EST 650 mg Given 05/29/2023 12:23 AM EST 650 mg Given 05/28/2023 5:54 PM EST 650 mg Acetaminophen (Tylenol) 160 MG/5ML oral liquid 975 mg 975 mg, G Tube, Q6H PRN Pain, Moderate, Pain, Mild, Starting on Gertrude 05/29/23 at 0945, Until Fri06/11/23 at 1734, Maximum or 4 grams (4000mg) per day. Given 06/06/2023 7:51 AM EST 975 mg Given 06/04/2023 8:45 AM EST 975 mg Given 06/01/2023 8:49 PM EST 975 mg albumin (human) (Plasbumin-5) 5 % infusion 12.5 g Intravenous, at 100 mL/hr, Please scan senior ui developer "square" 2D barcode to record Lot/ Expiration, ONCE, 1 dose, On Fri06/03/23 at 1645 New Bag 06/03/2023 4:16 PM EST 12.5 g 100 mL/hr ampicillin-sulbactam in NSS (Unasyn) ivpb 3 g 3 g, IV Piggyback, Q6H, 20 doses, First dose on Fri05/27/23 at 1200, Last dose on Fri06/01/23 at 0600, MIX BEFORE ADMINISTERING! New Bag 05/31/2023 5:10 AM EST 3 g 220 m L/hr New Bag 05/30/2023 11:53 PM EST 3 g 220 mL/hr New Bag 05/30/2023 6:02 PM EST 3 g 220 mL/hr aspirin chew tab 81 mg 81 mg, G Tube, Daily(AM), First dose on Fri06/02/23 at 1045, Until Discontinued Given 06/11/2023 8:50 AM EST 81 mg Given 06/10/2023 8:10 AM EST 81 mg Given 06/09/2023 8:14 AM EST 81 mg barium sulfate 40% (Varibar Thin) oral susp 1 Dose 1 Dose, Oral, ONCE, On Gertrude 06/05/23 at 1430, For 1 dose, 12, Radiology Medication Routing (Non-IR) Given 06/05/2023 2:30 PM EST 1 Dose chlorHEXIDINE (Periogard) 0.12 % oral rinse 15 mL 15 mL, Oral mucosal membrane, BID (08,1999), First dose on Fri05/26/23 at 2000, Until Discontinued, Include oral/gum/tooth brushing with medication. Use prepackaged oral kit suction tooth brush if available. Given 06/11/2023 8:50 AM EST 15 mL Given 06/10/2023 8:05 PM EST 15 mL Given 06/10/2023 8:10 AM EST 15 mL dexamethasone sod phosphate PF (Decadron) 10 MG/ML inj 10 mg 10 mg, IV Push, ONCE, On Fri05/26/23 at 1430, For 1 dose, PROTECT FROM LIGHT Given 05/26/2023 2:16 PM EST 10 mg dexAMETHasone Sodium Phosphate (Decadron) 4 MG/ML inj 8 mg 8 mg, IV Push, Q8H, First dose on Fri05/26/23 at 2200, Until Discontinued, PROTECT FROM LIGHT Given 05/28/2023 3:11 PM EST 8 mg Given 05/28/2023 5:52 AM EST 8 mg Given 05/27/2023 10:32 PM EST 8 mg dextrose 50 % inj 25 mL 25 mL, IV Push, PRN Hypoglycemia, Other, For blood glucose 54 - 69 mg/dL or 70 - 100 mg/dL with symptoms AND patient is unresponsive, NPO, OR unable to swallow, Starting on 06/01/23 at 1227, Until Fri06/11/23 at 1734, Administer IV. Recheck blood glucose after 15 minutes. Notify provider. dextrose 50 % inj 50 mL 50 mL, IV Push, PRN Hypoglycemia, Other, For blood glucose below 54 mg/dL AND patient unresponsive, NPO, OR unable to swallow, Starting on Fri06/01/23 at 1227, Until Fri06/11/23 at 1734, Administer IV. Recheck blood glucose in 15 minutes. Notify provider. Docusate Sodium (Colace) oral liquid 100 mg 100 mg, G Tube, BID (.AM/PM), First dose on Fri05/26/23 at 2100, Until Discontinued Given 06/10/2023 10:15 PM EST 100 mg Given 06/10/2023 8:10 AM EST 100 mg Given 06/09/2023 8:14 AM EST 100 mg doxazosin (Cardura) tab 2 mg 2 mg, G Tube, Daily(AM), First dose on Fri05/27/23 at 1100, Until Discontinued, Hold for SBP below 100 and notify service if dose is held Given 06/10/2023 10:52 AM EST 2 mg Given 06/08/2023 9:51 AM EST 2 mg Given 06/07/2023 9:38 AM EST 2 mg Enoxaparin (Lovenox) inj 40 mg 40 mg, Subcutaneous, Daily(AM), First dose (after last modification) on Fri05/29/23 at 1000, Until Discontinued, If patient is on warfarin, inform provider if daily INR value is 2 or greater! Given 06/11/2023 8:50 AM EST 40 mg Abdom en Right Lower Given 06/10/2023 8:11 AM EST 40 mg Ab domen Left Upper Given 06/09/2023 8:14 AM EST 40 mg Ab domen Left Upper Famotidine (Pepcid) oral susp 20 mg 20 mg, G Tube, Q12H, First dose on Fri05/26/23 at 2100, Until Discontinued Given 05/27/2023 8:06 AM EST 20 mg Given 05/26/2023 9:30 PM EST 20 mg feed tube water flush 200 mL 200 mL, G Tube, TID(AM/NOON/HS), First dose on Fri06/05/23 at 1230, Until Discontinued Given 06/11/2023 11:[address] 200 mL Given 06/11/2023 6:00 AM EST 200 mL Given 06/10/2023 10:00 PM EST 200 mL glucagon (Glucagen) inj 1 mg 1 mg, Intramuscular, PRN Hypoglycemia, Other, If patient is unresponsive, or NPO and has no IV access, Starting on Fri06/01/23 at 1227, Until Fri06/11/23 at 1734, NPO and no IV access with either 1) blood glucose less than 100 mg/dL and symptomatic OR 2) blood glucose less than 70 mg/dL and asymptomatic Glucose (Glutose 15) 40 % gel 15 g of glucose 15 g of glucose, Oral, PRN Hypoglycemia (low sugar), Other, For blood glucose 54 - 69 mg/dL or 70 - 100 mg/dL with symptoms AND patient alert WITH difficulty chewing/swallowing, Starting on Fri06/01/23 at 1227, Until Fri06/11/23 at 1734, Administer gel. Recheck blood glucose after 15 minutes. Notify provider. 37.5 gram tube = 15 grams glucose = 1 each Glucose (Glutose 15) 40 % gel 30 g of glucose 30 g of glucose, Oral, PRN Hypoglycemia (low sugar), Other, For blood glucose below 54 mg/dL AND patient alert WITH difficulty chewing/swallowing, Starting on Fri06/01/23 at 1227, Until Fri06/11/23 at 1734, Administer gel. Recheck blood glucose after 15 minutes. Notify provider. 37.5 gram tube = 15 grams glucose = 1 each glucose chew tab 16 g 16 g, Oral, PRN Hypoglycemia, Other, For blood glucose 54 - 69 mg/dL or 70 - 100 mg/dL with symptoms and patient alert without difficulty chewing/swallowing., Starting on Fri06/01/23 at 1227, Until Fri06/11/23 at 1734 insulin aspart (NovoLOG) inj Subcutaneous, Q6H, First dose on Fri05/26/23 at 1800, Until Discontinued, MEDIUM DOSE (Usual starting dose): Sliding Scale Correctional insulin may be given if the patient is NPO. Dose based on standard build from Insulin Calculator. Do not modify insulin doses in administration instructions! , Glucose less than 70 instructions: Obtain STAT lab blood glucose and call covering provider., Glucose 80-150 (units): 0, Glucose 151-200 (units): 2, Glucose 201-250 (units): 4, Glucose 251-300 (units): 6, Glucose greater than 300 (units): 8, Glucose greater than 300 instructions: Give suggested insulin dose and call covering provider. Given 05/27/2023 5:39 AM EST 2 Units Arm Left Upper Given 05/26/2023 11:59 PM EST 4 Units A bdomen Right Lower Given 05/26/2023 6:02 PM EST 4 Units Ar m Left Upper insulin aspart (NovoLOG) inj Subcutaneous, Q6H, First dose on Fri05/27/23 at 1200, Until Discontinued, HIGH DOSE - Steroid Patients (Steroid patient recommended Starting dose): Sliding Scale Correctional insulin may be given if the patient is NPO. Dose based on standard build from Insulin Calculator. Do not modify insulin doses in administration instructions! , Glucose less than 70 instructions: Obtain STAT lab blood glucose and call covering provider., Glucose 80-150 (units): 0, Glucose 151-200 (units): 4, Glucose 201-250 (units): 8, Glucose 251-300 (units): 12, Glucose greater than 300 (units): 15, Glucose greater than 300 instructions: Give suggested insulin dose and call covering provider. Given 06/01/2023 11:29 AM EST 8 Units Abdomen Left Upper Given 06/01/2023 12:43 AM EST 12 Units A bdomen Right Lower Given 05/31/2023 12:00 PM EST 4 Units A bdomen Left Upper insulin aspart (NovoLOG) inj Subcutaneous, Q6H, First dose on Fri06/01/23 at 1300, Until Discontinued, VERY HIGH DOSE (Severely Insulin Resistant): Sliding Scale Correctional insulin may be given if the patient is NPO. Dose based on standard build from Insulin Calculator. Do not modify insulin doses in administration instructions! , Glucose less than 70 instructions: Obtain STAT lab blood glucose and call covering provider., Glucose 80-150 (units): 0, Glucose 151-200 (units): 5, Glucose 201-250 (units): 10, Glucose 251-300 (units): 15, Glucose greater than 300 (units): 20, Glucose greater than 300 instructions: Give suggested insulin dose and call covering provider. Given 06/03/2023 6:15 AM EST 10 Units Deltoid Left Upper Given 06/02/2023 5:23 AM EST 5 Units Ab domen Left Lower Given 06/01/2023 11:21 PM EST 15 Units A bdomen Right Lower insulin aspart (NovoLOG) inj Subcutaneous, Q4H, First dose on Fri06/03/23 at 1715, Until Discontinued, HOLD if patient is not getting tube feeding For tube feeding nutren 1.5 - 30-60 ml per hr 151-200 1 unit 201-250 2 unit 251-300 2 units 301-350 3 units 351-400 4 units 401-450 5 units Given 06/04/2023 8:18 AM EST 2 Units Ar m Left Upper Given 06/04/2023 4:16 AM EST 2 Units De ltoid Right Upper Given 06/04/2023 12:16 AM EST 2 Units D eltoid Right Upper insulin aspart (NovoLOG) inj Subcutaneous, Q4H, First dose (after last modification) on Fri06/04/23 at 1200, Until Discontinued, HOLD if patient is not getting tube feeding Novolog Q4 hrs: 1 unit for every 30 mL per hour of Nutren 1.5 while tube feeds are running PLUS BG 251-350: 1 unit BG 351-450: 2 units Given 06/05/2023 4:11 AM EST 3 Units A bdomen Right Lower Given 06/05/2023 12:48 AM EST 3 Units A bdomen Right Lower Given 06/04/2023 9:35 PM EST 3 Units De ltoid Left Upper insulin aspart (NovoLOG) inj Subcutaneous, Q6H, First dose on Fri06/05/23 at 1800, Until Discontinued, HIGH DOSE (Moderately Insulin Resistance): Sliding Scale Correctional insulin may be given if the patient is NPO. Dose based on standard build from Insulin Calculator. Do not modify insulin doses in administration instructions! , Glucose less than 70 instructions: Obtain STAT lab blood glucose and call covering provider., Glucose 80-150 (units): 0, Glucose 151-200 (units): 3, Glucose 201-250 (units): 6, Glucose 251-300 (units): 9, Glucose greater than 300 (units): 12, Glucose greater than 300 instructions: Give suggested insulin dose and call covering provider. Given 06/11/2023 12:21 AM EST 3 Units Arm Right Upper Given 06/10/2023 12:39 AM EST 3 Units A rm Left Upper Given 06/09/2023 6:03 PM EST 3 Units Ar m Left Upper Insulin Glargine (Lantus) inj 10 Units 10 Units, Subcutaneous, HSINSULIN, First dose on Fri06/02/23 at 2200, Until Discontinued, "IF DOSE IS HELD- NOTIFY COVERING PROVIDER!" Given 06/04/2023 9:35 PM EST 10 Units Delto id Left Upper Given 06/03/2023 9:49 PM EST 10 Units De ltoid Right Upper Given 06/02/2023 10:35 PM EST 10 Units D eltoid Right Upper Insulin Glargine (Lantus) inj 7 Units 7 Units, Subcutaneous, AMINSULIN, First dose on Fri06/06/23 at 1230, Until Discontinued, "IF DOSE IS HELD- NOTIFY COVERING PROVIDER!" Given 06/11/2023 8:50 AM EST 7 Units Abdom en Right Lower Given 06/10/2023 8:11 AM EST 7 Units Ab domen Left Upper Given 06/09/2023 8:13 AM EST 7 Units Ar m Left Upper Ioversol (Optiray 320) inj 100 mL 100 mL, Intravenous, ONCE, On Fri06/03/23 at 1100, For 1 dose, Radiology Medication Routing (Non-IR) Given 06/03/2023 11:00 AM EST 100 mL Ioversol (Optiray 350) 74 % inj 100 mL 100 mL, Intravenous, ONCE, On Fri05/26/23 at 1715, For 1 dose, Radiology Medication Routing (Non-IR) Given 05/26/2023 5:15 PM EST 70 mL Ioversol (Optiray 350) 74 % inj 100 mL 100 mL, Intravenous, ONCE, On Fri05/26/23 at 1730, For 1 dose, Radiology Medication Routing (Non-IR) Given 05/26/2023 5:30 PM EST 32 mL isolyte-S pH 7.4 infusion Intravenous, at 100 mL/hr, Plasma-LYTE 148, isolyte-S, and isolyte-S pH 7.4 are considered equivalent - including for MAR barcode scanning., CONTINUOUS, Starting on Fri05/26/23 at 1700, Until Fri05/30/23 at 0957 New Bag 05/30/2023 9:48 AM EST 100 m L/hr New Bag 05/29/2023 10:46 PM EST 100 mL/hr New Bag 05/29/2023 10:22 AM EST 100 mL/hr isolyte-S pH 7.4 infusion Intravenous, at 50 mL/hr, Plasma-LYTE 148, isolyte-S, and isolyte-S pH 7.4 are considered equivalent - including for MAR barcode scanning., CONTINUOUS, Starting on Fri05/30/23 at 1030, Until Fri05/30/23 at 1758 Continue on Pump 05/30/2023 10:14 AM EST 50 mL/hr levothyroxine (Levoxyl) tab 75 mcg 75 mcg, G Tube, [id number], First dose (after last modification) on Fri05/27/23 at 0630, Until Discontinued Given 06/01/2023 5:20 AM EST 75 mcg Given 05/31/2023 5:20 AM EST 75 mcg Given 05/30/2023 5:42 AM EST 75 mcg levothyroxine (Levoxyl) tab 75 mcg 75 mcg, G Tube, [id number], First dose (after last modification) on Fri06/02/23 at 1000, Until Discontinued, If receiving enteral feeds, please hold 1 hour before and after administration. Given 06/11/2023 10:17 AM EST 75 mcg Given 06/10/2023 11:06 AM EST 75 mcg Given 06/09/2023 10:01 AM EST 75 mcg magnesium sulfate 1 g in d5w 100mL LOCKED DOSE 1 g, IV Piggyback, ONCE, 1 dose, On Fri06/04/23 at 0200, Administer over 60 Minutes New Bag 06/04/2023 2:01 AM EST 1 g 100 mL/hr melatonin tab 1 mg 1 mg, Oral, HS, First dose on Fri06/05/23 at 2200, Until Discontinued Given 06/10/2023 10:15 PM EST 1 mg Given 06/09/2023 10:12 PM EST 1 mg Given 06/08/2023 9:08 PM EST 1 mg NSS 0.9% 1,000 mL bolus infusion Intravenous, at 1,000 mL/hr Administer over 60 Minutes, Wide open, This infusion may be completed in less than 1 hour, since it will be a wide open rate, ONCE, 1 dose, On Fri05/26/23 at 1545 New Bag 05/26/2023 3:45 PM EST 1,000 mL 1000 mL/hr NSS 0.9% 500 mL bolus infusion Intravenous, at 250 mL/hr Administer over 120 Minutes, Administer entire volume within 60 minutes or less., ONCE, 1 dose, On Fri06/04/23 at 0200 New Bag 06/04/2023 1:27 AM EST 500 mL 25 0 mL/hr Nutren 1.5 liquid 10 mL/hr, Tube feed, CONTINUOUS, Starting on Gertrude 05/29/23 at 1015, Until Fri05/30/23 at 0618 New 05/29/2023 10:09 AM EST 10 mL/hr 10 mL/hr Nutren 1.5 liquid 65 mL/hr, Tube feed, CONTINUOUS, Starting on Fri05/30/23 at 0700, Until Fri06/01/23 at 1229 New Bag 06/01/2023 11:29 AM EST 65 mL/hr 65 mL/hr New 05/31/2023 10:15 PM EST 65 mL/hr 65 mL/hr New 05/31/2023 10:12 PM EST 65 mL/hr 65 mL/hr Nutren 1.5 liquid 95 mL/hr, Tube feed, CONTINUOUS, Starting on Fri06/01/23 at 1900, Until Fri06/02/23 at 0859 New 06/01/2023 11:26 PM EST 95 mL/hr 95 m L/hr New 06/01/2023 11:20 PM EST 95 mL/hr 95 mL/hr New 06/01/2023 11:19 PM EST 95 mL/hr 95 mL/hr Nutren 1.5 liquid 95 mL/hr, Tube feed, QHS, 1 dose, First dose (after last reorder) on Fri06/02/23 at 2200 Given 06/03/2023 6:30 AM EST 95 mL/hr 95 mL/hr Given 06/03/2023 4:03 AM EST 95 mL/hr 95 mL/hr Given 06/03/2023 2:00 AM EST 95 mL/hr 95 mL/hr Nutren 1.5 liquid 95 mL/hr, Administer over 14 Hours, Tube feed, CONTINUOUS, Starting on Fri06/03/23 at 1415, Until Fri06/03/23 at 1626 New 06/03/2023 1:48 PM EST 35 mL/hr 35 mL /hr Nutren 1.5 liquid 95 mL/hr, Administer over 14 Hours, Tube feed, CONTINUOUS, Starting on Fri06/03/23 at 1700, Until Fri06/05/23 at 1158 New 06/05/2023 1:35 AM EST 95 mL/hr 95 mL /hr 06/04/2023 9:34 PM EST 95 mL/hr 95 mL/hr 06/04/2023 5:12 PM EST 95 mL/hr 95 mL/hr Nutren 1.5 liquid 50 mL/hr, Administer over 24 Hours, Tube feed, CONTINUOUS, Starting on Fri06/05/23 at 1230, Until Fri06/07/23 at 1033 06/07/2023 9:37 AM EST 50 mL/hr 50 mL /hr 06/07/2023 12:00 AM EST 50 mL/hr 50 mL/hr 06/06/2023 5:00 PM EST 50 mL/hr 50 mL/hr Nutren 1.5 liquid 65 mL/hr, Administer over 24 Hours, Tube feed, CONTINUOUS, Starting on Fri06/07/23 at 1115, Until Fri06/08/23 at 1511 [facility] 06/08/2023 9:53 AM EST 65 mL/hr 65 mL /hr 06/08/2023 4:44 AM EST 65 mL/hr 65 mL/hr 06/07/2023 11:21 PM EST 65 mL/hr 65 mL/hr Nutren 1.5 liquid 250 mL, Tube feed, 5XDAY, First dose on Fri06/08/23 at 1900, Until Discontinued Given 06/11/2023 11:50 AM EST 250 mL Given 06/11/2023 8:50 AM EST 250 mL Given 06/10/2023 10:15 PM EST 250 mL omeprazole (PriLOSEC) oral susp 20 mg 20 mg, G Tube, Daily(AM), First dose on Fri05/30/23 at 0900, Until Discontinued, SHAKE WELL AND REFRIGERATEREFRIGERATEREFRIGERATE Given 06/11/2023 8:49 AM EST 20 m g Given 06/10/2023 10:52 AM EST 20 mg Given 06/09/2023 8:13 AM EST 20 mg Oral Hygiene: Mouth Swab with dentifrice Oral, Q4H LIMITED (00;04;12;16), First dose on Fri05/27/23 at 0000, Until Discontinued, To be used with 1.5% hydrogen peroxide solution or 0.05% cetylpyridium chloride oral rinse Given 06/11/2023 11:51 AM EST Given 06/11/2023 4:00 AM EST Given 06/11/2023 12:00 AM EST oxygen GAS Inhalation, OXYGEN, First dose on Fri05/26/23 at 1700, Until Discontinued, Device/Managed by: Low Flow Device, Goal SPO2 (%): 88-94, Starting Device: Face Tent, Initial Flow Rate (LPM): 40, Lowest Support: Mist Mask/Tent/Blow-By: Oxygen 21-60%. Titrate up/down {Room Air, 28%-5 LPM, 35%-8 LPM, 40%-10 LPM, 60%-10 LPM}., Titration Interval: Q2 minutes and as needed., Notify Provider: For sudden DECREASE in resting SPO2 to less than 85% and when escalating delivery device., Wean patient off Oxygen when the oxygen saturation is greater than or equal to 93% Oxygen On 06/11/2023 8:00 AM EST 5 L/min(Oxygen) Oxygen On 06/11/2023 12:00 AM EST Oxygen On 06/10/2023 4:00 PM EST 5 L/min(Oxygen) Pantoprazole (Protonix) inj 40 mg 40 mg, IV Push, Daily(AM), First dose on Fri05/26/23 at 1545, Until Discontinued, IV push instructions: Flush I.V. Line before and after administration. In-line filter not required. 2-minute infusion: The volume of reconstituted solution (4mg/ml) to be injected may be administered intravenously over at least 2 minutes. ( Dilute each vial with 10 ml of 0.9% saline PF) Given 05/26/2023 3:44 PM EST 40 mg Pantoprazole (Protonix) inj 40 mg 40 mg, IV Push, Q12H, First dose on Fri05/27/23 at 1100, Until Discontinued, IV push instructions: Flush I.V. Line before and after administration. In-line filter not required. 2-minute infusion: The volume of reconstituted solution (4mg/ml) to be injected may be administered intravenously over at least 2 minutes. ( Dilute each vial with 10 ml of 0.9% saline PF) Given 05/29/2023 8:33 AM EST 40 mg Given 05/28/2023 9:07 PM EST 40 mg Given 05/28/2023 8:07 AM EST 40 mg Piperacillin-Tazobactam (Zosyn) 4.5 g in 100 mL NSS ivpb (FOUR hour infusion) IV Piggyback, 4.5 g, Q8HNOW, 15 doses, First dose on Fri05/26/23 at 2030, Last dose on 05/31/23 at 1230, Administer over 4 Hours, at 25 mL/hr New Bag 05/27/2023 4:05 AM EST 4.5 g 25 mL/hr New Bag 05/26/2023 7:59 PM EST 4.5 g 25 mL/hr Piperacillin-Tazobactam (Zosyn) 4.5 g in 100 mL NSS ivpb (HALF hour infusion) IV Piggyback, 4.5 g, ONCE, 1 dose, On Fri05/26/23 at 1600, Administer over 30 Minutes New Bag 05/26/2023 3:47 PM EST 4.5 g 200 mL/hr Polyethylene Glycol 3350 (Miralax) oral powder 17 g 17 g (1 Packet), G Tube, Daily(AM), First dose on Fri06/01/23 at 0900, Until Discontinued, Mix in 8 oz of water, juice, soda, coffee, or tea. Given 06/10/2023 8:10 AM EST 17 g Given 06/09/2023 8:14 AM EST 17 g Given 06/07/2023 9:38 AM EST 17 g potassium and sodium phosphate (Phos-Nak) oral powder 2 Packet 2 Packet, G Tube, ONCE, On 05/31/23 at 0700, For 1 dose, Mix in 1/3 glass of water, stir well and administer promptly. 1 packet contains Phosphorus 250 mg (~8 mMoles) + potassium 280 mg (~7.125 mEq) + sodium 160mg (~7.125 mEq) Given 05/31/2023 8:05 AM EST 2 Packets potassium and sodium phosphate (Phos-Nak) oral powder 2 Packet 2 Packet, G Tube, ONCE, On Gertrude 06/05/23 at 1130, For 1 dose, Mix 1 packet in 2.5 ounces (75 mL) of water, stir well and administer promptly. 1 packet contains Phosphorus 250 mg (~8 mMoles) + potassium 280 mg (~7.125 mEq) + sodium 160mg (~7.125 mEq) Given 06/05/2023 3:51 PM EST 2 Packets potassium CHLORide liquid 40 mEq 40 mEq, G Tube, ONCE, On Fri05/30/23 at 0600, For 1 dose, To avoid GI irritation, must further diilute 15 ml in 3 ounces H2O or other fluid Given 05/30/2023 5:42 AM EST 40 mEq potassium phosphate 30 mmol in NSS 250 mL (K phos) ivpb 30 mmol, Peripheral IV, ONCE, 1 dose, On Fri05/30/23 at 0700 New Bag 05/30/2023 8:16 AM EST 30 mmol 57 mL/hr racepinephrine 2.25 % inhalation solution 22.5 mg 22.5 mg (1 mL), Nebulizer, ONCE, On Fri05/26/23 at 1430, For 1 dose, dilute with NSS to total volume of 3 to 5 mL before administration Given 05/26/2023 2:18 PM EST 22.5 mg racepinephrine 2.25 % inhalation solution 5.625 mg 5.625 mg (0.25 mL), Nebulizer, Q1H PRN Dyspnea, stridor, Starting on Fri05/26/23 at 1459, Until Fri06/11/23 at 1734, dilute with NSS to total volume of 3 to 5 mL before administration rosuvastatin (Crestor) tab 5 mg 5 mg, G Tube, Daily(AM), First dose on Fri05/27/23 at 0900, Until Discontinued Given 06/11/2023 8:50 AM EST 5 mg Given 06/10/2023 10:52 AM EST 5 mg Given 06/09/2023 8:13 AM EST 5 mg senna (Senokot) 1 Tablet 1 Tablet, G Tube, Daily(AM), First dose (after last modification) on Fri05/27/23 at 0900, Until Discontinued Given 06/10/2023 8:10 AM EST 1 Tablet Given 06/09/2023 8:28 AM EST 1 Tablet Given 06/07/2023 9:38 AM EST 1 Tablet sodium chloride 0.9 % flush peripheral norman 3 mL 3 mL, IV Push, Q8H, First dose on Fri05/26/23 at 2200, Until Discontinued, Do not flush if lock, PICC, or central line not in place; IV infusing or unable to flush. Given 06/11/2023 6:00 AM EST 3 mL Given 06/10/2023 10:00 PM EST 3 mL Given 06/10/2023 2:00 PM EST 3 mL documented in this encounter Active and Recently Administered Medications Times are shown in EST. Scheduled Medication Order 06/09/2023 06/10/2023 06/11/2023 aspirin chew tab 81 mg 81 mg, G Tube, Daily(AM), First dose on Fri06/02/23 at 1045, Until Discontinued 0814 (Given - Provider: Nano Campuzano RN) 0810 (Given - Provider: Nikki Arechiga RN) 0850 (Given - Provider: Nikki Arechiga, BRINA) chlorHEXIDINE (Periogard) 0.12 % oral rinse 15 mL 15 mL, Oral mucosal membrane, BID (799,1999), First dose on Fri05/26/23 at 2000, Until Discontinued, Include oral/gum/tooth brushing with medication. Use prepackaged oral kit suction tooth brush if available. 0825 (Given - Provider: Nano Campuzano RN)2005 (Given - Provider: Dennys Alvarado, BRINA) 0810 (Given - Provider: Nikki Arechiga, BRINA)2004 (Given - Provider: Dennys Alvarado, BRINA) 0850 (Given - Provider: Nikki Arechiga, BRINA) Docusate Sodium (Colace) oral liquid 100 mg 100 mg, G Tube, BID (.AM/PM), First dose on Fri05/26/23 at 2100, Until Discontinued 0814 (Given - Provider: Nano Campuzano RN)2100 (Not Given - Provider: Dennys Alvarado, BRINA - Reason: Parameter(s) Not Met - Comment: Loose BM) 0810 (Given - Provider: Nikki Arechiga RN)2215 (Given - Provider: Dennys Alvarado, BRINA) 0900 (Not Given - Provider: Nikki Arechiga RN - Reason: Other-Notify Provider - Comment: Ebenezer Chapman Resident Physician notified) doxazosin (Cardura) tab 2 mg 2 mg, G Tube, Daily(AM), First dose on Fri05/27/23 at 1100, Until Discontinued, Hold for SBP below 100 and notify service if dose is held 0900 (Not Given - Provider: Nano Campuzano RN - Reason: Parameter(s) Not Met - Comment: Lydia Leblanc, ENT consults notified.) 1052 (Given - Provider: Nikki Arechiga, BRINA) 0900 (Not Given - Provider: Nikki Arechiga RN - Reason: Other-Notify Provider - Comment: BP 90/61 [facility] Resident notified) Enoxaparin (Lovenox) inj 40 mg 40 mg, Subcutaneous, Daily(AM), First dose (after last modification) on Fri05/29/23 at 1000, Until Discontinued, If patient is on warfarin, inform provider if daily INR value is 2 or greater! 0814 (Given - Provider: Nano Campuzano RN) 0811 (Given - Provider: Nikki Arechiga, BRINA) 0850 (Given - Provider: Nikki Arechiga RN) feed tube water flush 200 mL 200 mL, G Tube, TID(AM/NOON/HS), First dose on Fri06/05/23 at 1230, Until Discontinued 0551 (Given - Provider: Joey Maddox RN)1200 (Given - Provider: Nano Campuzano RN)2200 (Given - Provider: Dennys Alvarado, BRINA) 0600 (Given - Provider: Dennys Alvarado, BRINA)1345 (Given - Provider: Nikki Arcehiga, BRINA)2200 (Given - Provider: Dennys Alvarado, BRINA) 0600 (Given - Provider: Dennys Alvarado, BRINA)1150 (Given - Provider: Nikki Arechiga, BRINA) insulin aspart (NovoLOG) inj Subcutaneous, Q6H, First dose on Fri06/05/23 at 1800, Until Discontinued, HIGH DOSE (Moderately Insulin Resistance): Sliding Scale Correctional insulin may be given if the patient is NPO. Dose based on standard build from Insulin Calculator. Do not modify insulin doses in administration instructions! , Glucose less than 70 instructions: Obtain STAT lab blood glucose and call covering provider., Glucose 80-150 (units): 0, Glucose 151-200 (units): 3, Glucose 201-250 (units): 6, Glucose 251-300 (units): 9, Glucose greater than 300 (units): 12, Glucose greater than 300 instructions: Give suggested insulin dose and call covering provider. 0000 (Not Given - Provider: Joey Maddox RN - Reason: Parameter(s) Not Met)0600 (Not Given - Provider: Joey Maddox RN - Reason: Parameter(s) Not Met - Comment: [phone])1200 (Not Given - Provider: Nano Campuzano RN - Reason: Parameter(s) Not Met)1803 (Given - Provider: Nano Campuzano RN) 0039 (Given - Provider: Dennys Alvarado RN)0621 (Not Given - Provider: Dennys Alvarado RN - Reason: Parameter(s) Not Met)1200 (Not Given - Provider: Nikki Arechiga RN - Reason: Parameter(s) Not Met)1800 (Not Given - Provider: Nikki Arechiga RN - Reason: Parameter(s) Not Met) 0021 (Given - Provider: Dennys Alvarado RN)0616 (Not Given - Provider: Dennys Alvarado RN - Reason: Parameter(s) Not Met)1200 (Not Given - Provider: Nikki Arechiga RN - Reason: Parameter(s) Not Met) Insulin Glargine (Lantus) inj 7 Units 7 Units, Subcutaneous, AMINSULIN, First dose on Fri06/06/23 at 1230, Until Discontinued, "IF DOSE IS HELD- NOTIFY COVERING PROVIDER!" 0813 (Given - Provider: Nano Campuzano RN) 0811 (Given - Provider: Nikki Arechiga RN) 0850 (Given - Provider: Nikki Arechiga RN) levothyroxine (Levoxyl) tab 75 mcg 75 mcg, G Tube, [id number], First dose (after last modification) on Fri06/02/23 at 1000, Until Discontinued, If receiving enteral feeds, please hold 1 hour before and after administration. 1001 (Given - Provider: Nano Campuzano RN) 1106 (Given - Provider: Nikki Arechiga RN) 1017 (Given - Provider: Nikki Arechiga RN) melatonin tab 1 mg 1 mg, Oral, HS, First dose on Gertrude 1/18/24 at 2200, Until Discontinued 221 (Given - Provider: Dennys Alvarado RN) 2215 (Given - Provider: Dennys Alvarado RN) Nutren 1.5 liquid 250 mL, Tube feed, 5XDAY, First dose on Fri06/08/23 at 1900, Until Discontinued 0813 (Given - Provider: Nano Campuzano RN)1202 (Given - Provider: Nano Campuzano RN)1615 (Given - Provider: Nano Campuzano RN)2005 (Given - Provider: Dennys Alvarado RN)2212 (Given - Provider: Dennys Alvarado RN) 0810 (Given - Provider: Nikki Arechiga RN)1345 (Given - Provider: Nikki Arechiga, BRINA)1726 (Given - Provider: Nikki Arechiga, BRINA)2004 (Given - Provider: Dennys Alvarado RN)2215 (Given - Provider: Dennys Alvarado RN) 0850 (Given - Provider: Nikki Arechiga, BRINA)1150 (Given - Provider: Nikki Arechiga, BRINA) omeprazole (PriLOSEC) oral susp 20 mg 20 mg, G Tube, Daily(AM), First dose on Fri05/30/23 at 0900, Until Discontinued, SHAKE WELL AND REFRIGERATEREFRIGERATE* *REFRIGERATE 0813 (Given - Provider: Nano Campuzano RN) 1052 (Given - Provider: Nikki Arechiga, BRINA) 0849 (Given - Provider: Nikki Arechiga, BRINA) Oral Hygiene: Mouth Swab with dentifrice Oral, Q4H LIMITED (00;04;12;16), First dose on Fri05/27/23 at 0000, Until Discontinued, To be used with 1.5% hydrogen peroxide solution or 0.05% cetylpyridium chloride oral rinse 0000 (Given - Provider: Joey Maddox RN)0400 (Given - Provider: Joey Maddox, BRINA)1200 (Given - Provider: Nano Campuzano RN)1600 (Given - Provider: Nano Campuzano RN) 0000 (Given - Provider: Dennys Alvarado RN)0400 (Given - Provider: Dennys Alvarado RN)1346 (Given - Provider: Nikki Arechiga RN)1600 (Given - Provider: Nikki Arechiga, BRINA) 0000 (Given - Provider: Dennys Alvarado RN)0400 (Given - Provider: Dennys Alvarado RN)1151 (Given - Provider: Nikki Arechiga, BRINA) oxygen GAS Inhalation, OXYGEN, First dose on Fri05/26/23 at 1700, Until Discontinued, Device/Managed by: Low Flow Device, Goal SPO2 (%): 88-94, Starting Device: Face Tent, Initial Flow Rate (LPM): 40, Lowest Support: Mist Mask/Tent/Blow-By: Oxygen 21-60%. Titrate up/down {Room Air, 28%-5 LPM, 35%-8 LPM, 40%-10 LPM, 60%-10 LPM}., Titration Interval: Q2 minutes and as needed., Notify Provider: For sudden DECREASE in resting SPO2 to less than 85% and when escalating delivery device., Wean patient off Oxygen when the oxygen saturation is greater than or equal to 93% 0000 (Oxygen On - Provider: Joey Maddox RN)0800 (Oxygen On - Provider: Nano Campuzano RN)1600 (Oxygen On - Provider: Nano Campuzano RN) 0000 (Oxygen On - Provider: Dennys Alvarado RN)0800 (Oxygen On - Provider: Nikki Arechiga RN)1600 (Oxygen On - Provider: Nikki Arechiga RN) 0000 (Oxygen On - Provider: Dennys Alvarado RN)0800 (Oxygen On - Provider: Nikki Arechiga RN) Polyethylene Glycol 3350 (Miralax) oral powder 17 g 17 g (1 Packet), G Tube, Daily(AM), First dose on Fri06/01/23 at 0900, Until Discontinued, Mix in 8 oz of water, juice, soda, coffee, or tea. 0814 (Given - Provider: Nano Campuzano RN) 0810 (Given - Provider: Nikki Arechiga, BRINA) 0900 (Not Given - Provider: Nikki Arechiga RN - Reason: Other-Notify Provider - Comment: Ebenezer Chapman Resident Physician notified) rosuvastatin (Crestor) tab 5 mg 5 mg, G Tube, Daily(AM), First dose on Fri05/27/23 at 0900, Until Discontinued 0813 (Given - Provider: Nano Campuzano RN) 1052 (Given - Provider: Nikki Arechiga, BRINA) 0850 (Given - Provider: Nikki Arechiga, RN) senna (Senokot) 1 Tablet 1 Tablet, G Tube, Daily(AM), First dose (after last modification) on Fri05/27/23 at 0900, Until Discontinued 0828 (Given - Provider: Nano Campuzano RN) 0810 (Given - Provider: Nikki Arechiga, BRINA) 0900 (Not Given - Provider: Nikki Arechiga RN - Reason: Other-Notify Provider - Comment: Ebenezer Chapman Resident Physician notified) sodium chloride 0.9 % flush peripheral norman 3 mL 3 mL, IV Push, Q8H, First dose on Fri05/26/23 at 2200, Until Discontinued, Do not flush if lock, PICC, or central line not in place; IV infusing or unable to flush. 0551 (Given - Provider: Joey Maddox RN)1400 (Given - Provider: Nano Campuzano RN)2200 (Given - Provider: Dennys Alvarado, BRINA) 0600 (Given - Provider: Dennys Alvarado, BRINA)1400 (Given - Provider: Nikki Arechiga, BRINA)2200 (Given - Provider: Dennys Alvarado, BRINA) 0600 (Given - Provider: Dennys Alvarado, BRINA) PRN Medication Order 06/09/2023 06/10/2023 06/11/2023 Acetaminophen (Tylenol) 160 MG/5ML oral liquid 975 mg 975 mg, G Tube, Q6H PRN Pain, Moderate, Pain, Mild, Starting on Gertrude 05/29/23 at 0945, Until Fri06/11/23 at 1734, Maximum or 4 grams (4000mg) per day. dextrose 50 % inj 25 mL 25 mL, IV Push, PRN Hypoglycemia, Other, For blood glucose 54 - 69 mg/dL or 70 - 100 mg/dL with symptoms AND patient is unresponsive, NPO, OR unable to swallow, Starting on Fri06/01/23 at 1227, Until Fri06/11/23 at 1734, Administer IV. Recheck blood glucose after 15 minutes. Notify provider. dextrose 50 % inj 50 mL 50 mL, IV Push, PRN Hypoglycemia, Other, For blood glucose below 54 mg/dL AND patient unresponsive, NPO, OR unable to swallow, Starting on Fri06/01/23 at 1227, Until Fri06/11/23 at 1734, Administer IV. Recheck blood glucose in 15 minutes. Notify provider. glucagon (Glucagen) inj 1 mg 1 mg, Intramuscular, PRN Hypoglycemia, Other, If patient is unresponsive, or NPO and has no IV access, Starting on Fri06/01/23 at 1227, Until Fri06/11/23 at 1734, NPO and no IV access with either 1) blood glucose less than 100 mg/dL and symptomatic OR 2) blood glucose less than 70 mg/dL and asymptomatic Glucose (Glutose 15) 40 % gel 15 g of glucose 15 g of glucose, Oral, PRN Hypoglycemia (low sugar), Other, For blood glucose 54 - 69 mg/dL or 70 - 100 mg/dL with symptoms AND patient alert WITH difficulty chewing/swallowing, Starting on Fri06/01/23 at 1227, Until Fri06/11/23 at 1734, Administer gel. Recheck blood glucose after 15 minutes. Notify provider. 37.5 gram tube = 15 grams glucose = 1 each Glucose (Glutose 15) 40 % gel 30 g of glucose 30 g of glucose, Oral, PRN Hypoglycemia (low sugar), Other, For blood glucose below 54 mg/dL AND patient alert WITH difficulty chewing/swallowing, Starting on Fri06/01/23 at 1227, Until Fri06/11/23 at 1734, Administer gel. Recheck blood glucose after 15 minutes. Notify provider. 37.5 gram tube = 15 grams glucose = 1 each glucose chew tab 16 g 16 g, Oral, PRN Hypoglycemia, Other, For blood glucose 54 - 69 mg/dL or 70 - 100 mg/dL with symptoms and patient alert without difficulty chewing/swallowing., Starting on Fri06/01/23 at 1227, Until Fri06/11/23 at 1734 racepinephrine 2.25 % inhalation solution 5.625 mg 5.625 mg (0.25 mL), Nebulizer, Q1H PRN Dyspnea, stridor, Starting on 05/26/23 at 1459, Until 06/11/23 at 1734, dilute with NSS to total volume of 3 to 5 mL before administration documented in this encounter Additional Health Concerns Infection Onset Date Last Indicated Resolved Time Respiratory Rule-Out 05/26/2023 05/26/2023 024 4:10 PM EST COVID-19 Rule-Out 05/26/2023 05/26/2023 05/26/2023 4:10 PM EST Tuberculosis Rule-Out Comment:Confirmed no concern for TB with Dr. Ha 05/30/2023 05/30/2023 06/02/2023 10:04 AM EST documented as of this encounter Advance Directives [...] the patient have Health Care Power of Knot Tier? No Bag Valve Device? Yes Intubation? Yes Cardiac Compressions? No Defibrillation? No Care Teams Germ Drier Relationship Specialty Start Date End Date Joe Hsuton DO [facility] [place] [address] [place] [id number] PCP - General Family Medicine 10/22/19 documented as of this encounter
--- OUTSIDE RECORDS SUMMARY | 2023-07-01 20:41 | External Medical Summary ---
Author Name Unknown Address Unknown Organization : Laboratory Report Ordering Provider Test Date Status GEOVANNY RIOS 06/10/2023 16:54:59 Final Observation Date Value Abnormality Reference (Units ) Status Glucose Point of Care 06/10/2023 16:54:59 147 Above high normal 70-120 (mg/dL) Final Performing Location
--- OUTSIDE RECORDS SUMMARY | 2023-07-01 20:41 | External Medical Summary ---
Author Name Unknown Address Unknown Organization : Laboratory Report Ordering Provider Test Date Status GEOVANNY RIOS 06/11/2023 00:08:13 Final Observation Date Value Abnormality Reference (Units ) Status Glucose Point of Care 06/11/2023 00:08:13 172 Above high normal 70-120 (mg/dL) Final Performing Location
--- OUTSIDE RECORDS SUMMARY | 2023-07-01 20:41 | External Medical Summary ---
Author Name Unknown Address Unknown Organization : Laboratory Report Ordering Provider Test Date Status GEOVANNY RIOS 06/10/2023 06:20:05 Final Observation Date Value Abnormality Reference (Units ) Status Glucose Point of Care 06/10/2023 06:20:05 110 70-120 (mg/dL) Final Performing Location
--- OUTSIDE RECORDS SUMMARY | 2023-07-01 20:41 | External Medical Summary ---
Author Name Unknown Address Unknown Organization [id number]:[facility] [place] [address] [facility] [address] Laboratory Report Ordering Provider Test Date Status SOTO SABILLON 06/10/2023 03:37:00 Final Observation Date Value Abnormality Reference (Units ) Status WBC, Total 06/10/2023 03:37:00 9.79 4.00-10.80 (K/uL) Final RBC 06/10/2023 03:37:00 2.60 4.50-5.25 (M/uL) Final Hemoglobin 06/10/2023 03:37:00 8.1 Below low normal 14.0-16.8 (g/dL) Final HCT 06/10/2023 03:37:00 26.3 Below low normal 40.0-48.4 (%) Final MCV 06/10/2023 03:37:00 101.2 82.0-99.5 (fL) Final MCH 06/10/2023 03:37:00 31.2 27.0-34.0 (pg) Final MCHC 06/10/2023 03:37:00 30.8 32.0-36.0 (g/dL) Final RDW 06/10/2023 03:37:00 16.5 11.5-15.5 (%) Final Platelets 06/10/2023 03:37:00 279 140-400 (K/uL) Final MPV 06/10/2023 03:37:00 9.1 6.6-11.1 (fL) Final Nucleated erythrocytes/100 leukocytes [Ratio] in Blood by Automated count 06/10/2023 03:37:00 0 <=0 (/100 WBCs) Final Performing Location [facility] [place] - [address] [facility] [id number]
--- OUTSIDE RECORDS SUMMARY | 2023-07-01 20:41 | External Medical Summary ---
Author Name Unknown Address Unknown Organization [id number]:[facility]ATORY [facility] - [address] [place] [address] Laboratory Report Ordering Provider Test Date Status SOTO SABILLON 06/10/2023 03:37:00 Final Observation Date Value Abnormality Reference (Units ) Status Phosphate 06/10/2023 03:37:00 3.8 2.5-4.8 (m g/dL) Final Performing Location [facility] - [address] [place] [address]
--- OUTSIDE RECORDS SUMMARY | 2023-07-01 20:41 | External Medical Summary ---
Author Name Unknown Address Unknown Organization [id number]:[facility] - [address] [place] [address] Laboratory Report Ordering Provider Test Date Status SOTO SABILLON 06/11/2023 05:22:00 Final Observation Date Value Abnormality Reference (Units ) Status Phosphate 06/11/2023 05:22:00 3.9 2.5-4.8 (m g/dL) Final Performing Location [facility] - [address] [place] [address]
--- OUTSIDE RECORDS SUMMARY | 2023-07-01 20:41 | External Medical Summary ---
Author Name Unknown Address Unknown Organization : Laboratory Report Ordering Provider Test Date Status EGOVANNY RIOS 06/10/2023 17:11:54 Final Observation Date Value Abnormality Reference (Units ) Status Glucose Point of Care 06/10/2023 17:11:54 148 Above high normal 70-120 (mg/dL) Final Performing Location
--- OUTSIDE RECORDS SUMMARY | 2023-07-01 20:41 | External Medical Summary ---
Author Name Unknown Address Unknown Organization [id number][place] [place] [address] [place] [address] Laboratory Report Ordering Provider Test Date Status SOTO SABILLON 06/10/2023 03:37:00 Final Observation Date Value Abnormality Reference (Units ) Status BUN 06/10/2023 03:37:00 26 Above high normal 6-20 (mg/dL) Final Creatinine 06/10/2023 03:37:00 0.6 0.6-1.2 (mg/dL) Final Glomerular filtration rate/1.73 sq M.predicted [Volume Rate/Area] in Serum, Plasma or Blood by Creatinine-based formula (CKD-EPI) 06/10/2023 03:37:00 >90 >=60 (mL/min) Final eGFR is calculated based on the CKD-EPI 2020 equation SODIUM 06/10/2023 03:37:00 133 Below low normal 135 -146 (mmol/L) Final Potassium 06/10/2023 03:37:00 4.6 3.5-5.1 (m mol/L) Final Cl 06/10/2023 03:37:00 98 98-107 (mm ol/L) Final CO2 06/10/2023 03:37:00 28 22-32 (mmo l/L) Final Anion gap 06/10/2023 03:37:00 7 7-15 (mmol /L) Final Glucose 06/10/2023 03:37:00 100 70-120 (mg /dL) Final Calcium 06/10/2023 03:37:00 8.4 8.4-10.2 ( mg/dL) Final Performing Location [facility] [place] [address] [place] [id number]
--- OUTSIDE RECORDS SUMMARY | 2023-07-01 20:41 | External Medical Summary ---
Author Name Unknown Address Unknown Organization : Laboratory Report Ordering Provider Test Date Status GEOVANNY RIOS 06/11/2023 06:01:07 Final Observation Date Value Abnormality Reference (Units ) Status Glucose Point of Care 06/11/2023 06:01:07 109 70-120 (mg/dL) Final Performing Location
--- OUTSIDE RECORDS SUMMARY | 2023-07-01 20:41 | External Medical Summary ---
Author Name Unknown Address Unknown Organization : Laboratory Report Ordering Provider Test Date Status GEOVANNY RIOS 06/10/2023 08:07:33 Final Observation Date Value Abnormality Reference (Units ) Status Glucose Point of Care 06/10/2023 08:07:33 116 70-120 (mg/dL) Final Performing Location
--- OUTSIDE RECORDS SUMMARY | 2023-07-01 20:41 | External Medical Summary ---
Author Name Unknown Address Unknown Organization : Laboratory Report Ordering Provider Test Date Status GEOVANNY RIOS 06/11/2023 11:55:23 Final Observation Date Value Abnormality Reference (Units ) Status Glucose Point of Care 06/11/2023 11:55:23 148 Above high normal 70-120 (mg/dL) Final Performing Location
--- OUTSIDE RECORDS SUMMARY | 2023-07-01 20:41 | External Medical Summary ---
Author Name Unknown Address Unknown Organization [id number]:[facility]ATORY [facility] - [address] [place] [address] Laboratory Report Ordering Provider Test Date Status SOTO SABILLON 06/11/2023 05:22:00 Final Observation Date Value Abnormality Reference (Units ) Status Magnesium 06/11/2023 05:22:00 2.2 1.5-2.6 (m g/dL) Final Performing Location [facility] - [address] [place] [address]
--- OUTSIDE RECORDS SUMMARY | 2023-07-01 20:41 | External Medical Summary ---
Author Name Unknown Address Unknown Organization : Laboratory Report Ordering Provider Test Date Status GEOVANNY RIOS 06/10/2023 12:28:18 Final Observation Date Value Abnormality Reference (Units ) Status Glucose Point of Care 06/10/2023 12:28:18 124 Above high normal 70-120 (mg/dL) Final Performing Location
--- OUTSIDE RECORDS SUMMARY | 2023-07-01 20:41 | External Medical Summary ---
Author Name Unknown Address Unknown Organization : Laboratory Report Ordering Provider Test Date Status GEOVANNY RIOS 06/10/2023 00:34:51 Final Observation Date Value Abnormality Reference (Units ) Status Glucose Point of Care 06/10/2023 00:34:51 169 Above high normal 70-120 (mg/dL) Final Performing Location
--- OUTSIDE RECORDS SUMMARY | 2023-07-01 20:41 | External Medical Summary ---
Author Name Unknown Address Unknown Organization [id number]:LABORATORY [facility] [place] - [address] [facility] [address] Laboratory Report Ordering Provider Test Date Status SOTO SABILLON 06/11/2023 05:22:00 Final Observation Date Value Abnormality Reference (Units ) Status WBC, Total 06/11/2023 05:22:00 8.77 4.00-10.80 (K/uL) Final RBC 06/11/2023 05:22:00 2.40 4.50-5.25 (M/uL) Final Hemoglobin 06/11/2023 05:22:00 7.7 Below low normal 14.0-16.8 (g/dL) Final HCT 06/11/2023 05:22:00 24.0 Below low normal 40.0-48.4 (%) Final MCV 06/11/2023 05:22:00 100.0 82.0-99.5 (fL) Final MCH 06/11/2023 05:22:00 32.1 27.0-34.0 (pg) Final MCHC 06/11/2023 05:22:00 32.1 32.0-36.0 (g/dL) Final RDW 06/11/2023 05:22:00 16.2 11.5-15.5 (%) Final Platelets 06/11/2023 05:22:00 263 140-400 (K/uL) Final MPV 06/11/2023 05:22:00 8.9 6.6-11.1 (fL) Final Nucleated erythrocytes/100 leukocytes [Ratio] in Blood by Automated count 06/11/2023 05:22:00 0 <=0 (/100 WBCs) Final Performing Location [facility] - [address] [facility] [address]
--- OUTSIDE RECORDS SUMMARY | 2023-07-01 20:41 | External Medical Summary | Summary of Care ---
Author Name Unknown Organization [facility] Address [address] [place] [address] Phone [phone] Care Team Providers Care Finance Vice President Name Role Phone RobelJoe Ronnie NORMAN Primary Care Provider [phone] Encounter Details Date Type Department Care Team (Late st Contact Info) Description 06/10/2023 Orders Only Radiation Oncology, [place] [address] [place] [address] Alec Franklin MD [address] [place] [address] Allergies Active Allergy Reactions Criticality Noted Date Comments Sulfa Antibiotics Rash 11/02/2004 Rash documented as of this encounter (statuses as of 06/10/2023) Medications Medication Sig Dispensed Refills Start Date [...] suction catheters. 30 Each 5 05/30/2023 Active Aspirin 81 MG Tablet Take 1 Tablet by mouth in the morning. 0 Suspended MetFORMIN (GLUCOPHAGE) 1000 MG Tablet Take 1 Tablet by mouth 2 times a day with morning and evening meals. 0 Suspended levothyroxine (LEVOXYL) 75 MCG Tablet Take 1 Tablet by mouth daily first thing in the morning. (at least 30 min prior to breakfast or other meds) 0 Suspended amoxicillin (AMOXIL) 500 MG Capsule Take 2,000 mg by mouth as needed (takes prior to dental visits). 0 Suspended pantoprazole (PROTONIX) 40 MG TBEC Take 1 Tablet by mouth in the morning. 0 Suspended ferrous sulfate (FEOSOL) 325 (65 FE) MG Tablet Take 1 Tablet by mouth daily with breakfast. 0 Suspended Tamsulosin HCl 0.4 MG Oral Capsule (Flomax)Indicatio ns:takes at bedtime Take 1 Capsule by mouth in the morning. 0 Suspended Calcium Carbonate 600 MG Oral Tablet Take 1 Tablet by mouth 2 times a day with morning and evening meals. 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 12/21/2019 Dyslipidemia, goal [...] as of this encounter (statuses as of 06/10/2023) Social History Tobacco Use Types Packs/Day Years [...] on file documented as of this encounter Plan of Treatment Upcoming Encounters Date Type Department Care Team (Late st Contact Info) Description 06/10/2023 3:00 PM EST Treatment Radiation Oncology, [address] [id number] 07/30/2023 11:00 AM EDT Office Visit Hematology Oncology [facility] [address] [place] [phone] Shannan Bermeo MD [address] [place] [address] Health Maintenance Due Date Last Done Comments Depression Screening 1954 Diabetic Eye Exam 1960 Diabetic Foot Exam 1960 DTaP,Tdap,and Td Vaccines (1 - Tdap) 1961 Zoster Vaccines (1 of 2) 1992 Hepatitis B (1 of 3 - Risk 3-dose series) 2002 TSH 11/07/2021 11/07/2020 COVID-19 Vaccine (2 - season) 2023 02/13/2022 Pneumococcal Vaccine: 65+ Years Completed 11/13/2021, 04/13/2019, 04/05/2017 Influenza Vaccine (FLU shot) Completed 04/2023, 02/13/2022, 05/03/2021, Additional history exists GARDASIL-HPV IMMUNIZATION SERIES Aged Out No longer eligible based on patient's age to complete this topic MENINGOCOCCAL (MENACTRA/MENVEO) Aged Out No longer eligible based on patient's age to complete this topic documented as of this encounter Medical Devices Implanted Type Area Lye Peel Operator Device Identifier Shelf Expiration Date Model / Serial / Lot Lens Intraoc 20.5 - [id number] - [id number] Implanted:Qty: 1 on 06/27/2020 by Mason Hassan MD at [facility] Right: Eye [employer] 10/16/2024 [id number] / [id number] / [id number] Lens Intraoc 21.0 - [id number] - [id number] Implanted:Qty: 1 on 07/11/2020 by Mason Hassan MD at [facility] Left: Eye [employer] 02/15/2025 [id number] / [id number] / [id number] documented as of this encounter Procedures Procedure Name Priority Date/Time Associated Diagnosis Comments RAD ONC ARIA SESSION SUMMARY Routine 06/10/2023 9:03 AM EST documented in this encounter Results * RAD ONC ARIA SESSION SUMMARY (06/10/2023 9:03 AM EST) Course ID [id number] ARIA RADIATION ONCOLOGY Course Intent Palliative ARIA RADIATION ONCOLOGY Course Start Date 06/05/2023 10:15 AM ARIA RADIATION ONCOLOGY RAD ONC ARIA SESSION NUMBER 3 ARIA RADIATION ONCOLOGY Course First Treatment Date 06/09/2023 9:39 AM ARIA RADIATION ONCOLOGY Course Last Treatment Date 06/10/2023 9:01 AM ARIA RADIATION ONCOLOGY Course Elapsed Days 1 ARIA RADIATION ONCOLOGY Reference Point ID [id number] ARIA RADIATION ONCOLOGY Reference Point Dosage Given to Date 10.5 Gy ARIA RADIATION ONCOLOGY Reference Point Session Dosage Given 3.5 Gy ARIA RADIATION ONCOLOGY Reference Point ID Total H&N ARIA RADIATION ONCOLOGY Reference Point Dosage Given to Date 10.5 Gy ARIA RADIATION ONCOLOGY Reference Point Session Dosage Given 3.5 Gy ARIA RADIATION ONCOLOGY Plan ID 10-H&N Quad ARIA RADIATION ONCOLOGY Plan Name Plan_R hypopharnx_PTV _4200 ARIA RADIATION ONCOLOGY Plan Fractions Treated to Date 3 ARIA RADIATION ONCOLOGY Plan Total Fractions Prescribed 12 ARIA RADIATION ONCOLOGY Plan Prescribed Dose Per Fraction 3.5 Gy ARIA RADIATION ONCOLOGY Plan Total Prescribed Dose 4,200 cGy ARIA RADIATION ONCOLOGY Plan Primary Reference Point [id number] ARIA RADIATION ONCOLOGY 06/10/2023 9:03 AM EST Weekly Treatments DRESSINGS ARIA RADIATION ONCOLOGY documented in this encounter Advance Directives Latest Code Status on File Code Status Date Activated Date Inactivated Comments Limited Code 05/26/2023 4:21 PM This order reflects the patients wishes and were consensually agreed upon. Question Answer Comments Discussion of Advance Directives occurred with: Patient Does the patient have a Living Will? No Does the patient have Health Care Power of Drop Machine Operator? No Bag Valve Device? Yes Intubation? Yes Cardiac Compressions? No Defibrillation? No Care Teams Finance Vice President Relationship Specialty Start Date End Date Joe Huston DO [address] [place] [address] PCP - General Family Medicine 10/22/19 documented as of this encounter
--- OUTSIDE RECORDS SUMMARY | 2023-07-01 20:41 | External Medical Summary ---
Author Name Unknown Address Unknown Organization [id number]:LABORATORY [facility] [place] - [address] [place] [address] Laboratory Report Ordering Provider Test Date Status BRYON MILLER 06/11/2023 18:00:00 Final Observation Date Value Abnormality Reference (Units ) Status Adenovirus DNA [Presence] in Nasopharynx by JOHN with non-probe detection 06/11/2023 18:00:00 Negative Negative Final Human coronavirus 229E RNA [Presence] in Nasopharynx by JOHN with non-probe detection 06/11/2023 18:00:00 Negative Negative Final Human coronavirus HKU1 RNA [Presence] in Nasopharynx by JOHN with non-probe detection 06/11/2023 18:00:00 Negative Negative Final Human coronavirus NL63 RNA [Presence] in Nasopharynx by JOHN with non-probe detection 06/11/2023 18:00:00 Negative Negative Final Human coronavirus OC43 RNA [Presence] in Nasopharynx by JOHN with non-probe detection 06/11/2023 18:00:00 Negative Negative Final SARS-CoV-2 (COVID-19) RNA [Presence] in Nasopharynx by JOHN with non-probe detection 06/11/2023 18:00:00 Negative Negative Final Human metapneumovirus RNA [Presence] in Nasopharynx by JOHN with non-probe detection 06/11/2023 18:00:00 Negative Negative Final Rhinovirus+Enterovirus RNA [Presence] in Nasopharynx by JOHN with non-probe detection 06/11/2023 18:00:00 Negative Negative Final Influenza virus A RNA [Presence] in Nasopharynx by JOHN with non-probe detection 06/11/2023 18:00:00 Negative Negative Final Influenza virus B RNA [Presence] in Nasopharynx by JOHN with non-probe detection 06/11/2023 18:00:00 Negative Negative Final Parainfluenza virus 1 RNA [Presence] in Nasopharynx by JOHN with non-probe detection 06/11/2023 18:00:00 Negative Negative Final Parainfluenza virus 2 RNA [Presence] in Nasopharynx by JOHN with non-probe detection 06/11/2023 18:00:00 Negative Negative Final Parainfluenza virus 3 RNA [Presence] in Nasopharynx by JOHN with non-probe detection 06/11/2023 18:00:00 Negative Negative Final Parainfluenza virus 4 RNA [Presence] in Nasopharynx by JOHN with non-probe detection 06/11/2023 18:00:00 Negative Negative Final Respiratory syncytial virus RNA [Presence] in Nasopharynx by JOHN with non-probe detection 06/11/2023 18:00:00 Negative Negative Final Bordetella pertussis.pertussis toxin promoter region [Presence] in Nasopharynx by JOHN with non-probe detection 06/11/2023 18:00:00 Negative Negative Final Chlamydophila pneumoniae DNA [Presence] in Nasopharynx by JOHN with non-probe detection 06/11/2023 18:00:00 Negative Negative Final Mycoplasma pneumoniae DNA [Presence] in Nasopharynx by JOHN with non-probe detection 06/11/2023 18:00:00 Negative Negative Final Bordetella parapertussis [id number] DNA [Presence] in Nasopharynx by JOHN with non-probe detection 06/11/2023 18:00:00 Negative Negative Final
The primers that detect Rhinovirus may cross react with some Enterorviruses. The validation of bronchial specimens, tracheal aspirates, and throats for this assay was developed and performance characteristics determined by [facility]. The validation of alternate specimen types has not been cleared or approved by the U.S. Food and Drug Administration (FDA). It has been determined that such clearance or approval is not necessary. Performing Location LABORATORY [facility] [place] - [address] [facility] [address]
--- OUTSIDE RECORDS SUMMARY | 2023-07-01 20:42 | External Medical Summary ---
Author Name Unknown Address Unknown Organization K01:LAB[facility]ATORY [facility] - [address] [place] [address] Laboratory Report Ordering Provider Test Date Status SOTO SABILLON 06/05/2023 04:47:00 Final Observation Date Value Abnormality Reference (Units ) Status Phosphate 06/05/2023 04:47:00 2.4 Below low normal 2.5 -4.8 (mg/dL) Final Performing Location [facility] - [address] [facility] [address]
--- OUTSIDE RECORDS SUMMARY | 2023-07-01 20:42 | External Medical Summary ---
Author Name Unknown Address Unknown Organization K01:LABORATORY [facility] [place] - [address] [place] [address] Laboratory Report Ordering Provider Test Date Status SOTO SABILLON 06/09/2023 03:28:00 Final Observation Date Value Abnormality Reference (Units ) Status BUN 06/09/2023 03:28:00 21 Above high normal 6-20 (mg/dL) Final Creatinine 06/09/2023 03:28:00 0.6 0.6-1.2 (mg/dL) Final Glomerular filtration rate/1.73 sq M.predicted [Volume Rate/Area] in Serum, Plasma or Blood by Creatinine-based formula (CKD-EPI) 06/09/2023 03:28:00 >90 >=60 (mL/min) Final eGFR is calculated based on the CKD-EPI 2020 equation SODIUM 06/09/2023 03:28:00 134 Below low normal 135 -146 (mmol/L) Final Potassium 06/09/2023 03:28:00 4.9 3.5-5.1 (m mol/L) Final Cl 06/09/2023 03:28:00 99 98-107 (mm ol/L) Final CO2 06/09/2023 03:28:00 29 22-32 (mmo l/L) Final Anion gap 06/09/2023 03:28:00 6 Below low normal 7-1 5 (mmol/L) Final Glucose 06/09/2023 03:28:00 109 70-120 (mg /dL) Final Calcium 06/09/2023 03:28:00 8.6 8.4-10.2 ( mg/dL) Final Performing Location LABORATORY [facility] [place] - [address] [place] [address]
--- OUTSIDE RECORDS SUMMARY | 2023-07-01 20:42 | External Medical Summary ---
Author Name Unknown Address Unknown Organization : Laboratory Report Ordering Provider Test Date Status BRITTANIONURSAL 06/04/2023 20:21:24 Final Observation Date Value Abnormality Reference (Units ) Status Glucose Point of Care 06/04/2023 20:21:24 224 Above high normal 70-120 (mg/dL) Final Performing Location
--- OUTSIDE RECORDS SUMMARY | 2023-07-01 20:42 | External Medical Summary ---
Author Name Unknown Address Unknown Organization : Laboratory Report Ordering Provider Test Date Status ESTEBAN VASQUES 06/07/2023 05:51:09 Final Observation Date Value Abnormality Reference (Units ) Status Glucose Point of Care 06/07/2023 05:51:09 186 Above high normal 70-120 (mg/dL) Final Performing Location
--- OUTSIDE RECORDS SUMMARY | 2023-07-01 20:42 | External Medical Summary ---
Author Name Unknown Address Unknown Organization K01:LABORATORY [facility] [place] - [address] [place] [address] Laboratory Report Ordering Provider Test Date Status SOTO SABILLON 06/06/2023 04:38:00 Final Observation Date Value Abnormality Reference (Units ) Status BUN 06/06/2023 04:38:00 18 6-20 (mg/dL) Final Creatinine 06/06/2023 04:38:00 0.6 0.6-1.2 (mg/dL) Final Glomerular filtration rate/1.73 sq M.predicted [Volume Rate/Area] in Serum, Plasma or Blood by Creatinine-based formula (CKD-EPI) 06/06/2023 04:38:00 >90 >=60 (mL/min) Final eGFR is calculated based on the CKD-EPI 2020 equation SODIUM 06/06/2023 04:38:00 135 135-146 (m mol/L) Final Potassium 06/06/2023 04:38:00 4.7 3.5-5.1 (m mol/L) Final Cl 06/06/2023 04:38:00 100 98-107 (mm ol/L) Final CO2 06/06/2023 04:38:00 28 22-32 (mmo l/L) Final Anion gap 06/06/2023 04:38:00 7 7-15 (mmol /L) Final Glucose 06/06/2023 04:38:00 217 Above high normal 70 -120 (mg/dL) Final Calcium 06/06/2023 04:38:00 8.4 8.4-10.2 ( mg/dL) Final Performing Location LABORATORY [facility] [place] - [address] [place] [address]
--- OUTSIDE RECORDS SUMMARY | 2023-07-01 20:42 | External Medical Summary ---
Author Name Unknown Address Unknown Organization K01:LABORATORY [facility] [place] - [address] [facility] [address] Laboratory Report Ordering Provider Test Date Status SOTO SABILLON 06/07/2023 03:31:00 Final Observation Date Value Abnormality Reference (Units ) Status WBC, Total 06/07/2023 03:31:00 8.82 4.00-10.80 (K/uL) Final RBC 06/07/2023 03:31:00 2.42 4.50-5.25 (M/uL) Final Hemoglobin 06/07/2023 03:31:00 7.6 Below low normal 14.0-16.8 (g/dL) Final HCT 06/07/2023 03:31:00 24.3 Below low normal 40.0-48.4 (%) Final MCV 06/07/2023 03:31:00 100.4 82.0-99.5 (fL) Final MCH 06/07/2023 03:31:00 31.4 27.0-34.0 (pg) Final MCHC 06/07/2023 03:31:00 31.3 32.0-36.0 (g/dL) Final RDW 06/07/2023 03:31:00 16.8 11.5-15.5 (%) Final Platelets 06/07/2023 03:31:00 224 140-400 (K/uL) Final MPV 06/07/2023 03:31:00 9.5 6.6-11.1 (fL) Final Nucleated erythrocytes/100 leukocytes [Ratio] in Blood by Automated count 06/07/2023 03:31:00 0 <=0 (/100 WBCs) Final Performing Location LABORATORY [facility] [place] - [address] [facility] [address]
--- OUTSIDE RECORDS SUMMARY | 2023-07-01 20:42 | External Medical Summary ---
Author Name Unknown Address Unknown Organization K01:LABORATORY [facility] [place] - [address] [place] [address] Laboratory Report Ordering Provider Test Date Status BRUCE WATSON 06/04/2023 15:26:48 Final Observation Date Value Abnormality Reference (Units ) Status COMMENT 06/04/2023 15:26:48 PDL1 & MyGenVar Head & Neck Gene Panel (NGS) Final COMMENT 06/04/2023 15:26:48 Ordered by: Dr. WALTER BARRERA 06/04/23 Final COMMENT 06/04/2023 15:26:48 QA for slides JCD 06/04/23 Final COMMENT 06/04/2023 15:26:48 Slides to WQ 06/05/23 JCD Final COMMENT 06/04/2023 15:26:48 Per WQ ordered on A1, 80% tumor JCD 06/05/23 Final Performing Location LABORATORY [facility] [place] - [address] [place] [address]
--- OUTSIDE RECORDS SUMMARY | 2023-07-01 20:42 | External Medical Summary ---
Author Name Unknown Address Unknown Organization : Laboratory Report Ordering Provider Test Date Status BRITTANIONURSAL 06/04/2023 16:17:45 Final Observation Date Value Abnormality Reference (Units ) Status Glucose Point of Care 06/04/2023 16:17:45 99 70-120 (mg/dL) Final Performing Location
--- OUTSIDE RECORDS SUMMARY | 2023-07-01 20:42 | External Medical Summary ---
Author Name Unknown Address Unknown Organization K01:[place] [place] [address] [facility] [address] Laboratory Report Ordering Provider Test Date Status SOTO SABILLON 06/06/2023 04:38:00 Final Observation Date Value Abnormality Reference (Units ) Status WBC, Total 06/06/2023 04:38:00 7.91 4.00-10.80 (K/uL) Final RBC 06/06/2023 04:38:00 2.36 4.50-5.25 (M/uL) Final Hemoglobin 06/06/2023 04:38:00 7.6 Below low normal 14.0-16.8 (g/dL) Final HCT 06/06/2023 04:38:00 24.4 Below low normal 40.0-48.4 (%) Final MCV 06/06/2023 04:38:00 103.4 82.0-99.5 (fL) Final MCH 06/06/2023 04:38:00 32.2 27.0-34.0 (pg) Final MCHC 06/06/2023 04:38:00 31.1 32.0-36.0 (g/dL) Final RDW 06/06/2023 04:38:00 17.2 11.5-15.5 (%) Final Platelets 06/06/2023 04:38:00 205 140-400 (K/uL) Final MPV 06/06/2023 04:38:00 9.5 6.6-11.1 (fL) Final Nucleated erythrocytes/100 leukocytes [Ratio] in Blood by Automated count 06/06/2023 04:38:00 0 <=0 (/100 WBCs) Final Performing Location [facility] [place] [address] [facility] [address]
--- OUTSIDE RECORDS SUMMARY | 2023-07-01 20:42 | External Medical Summary ---
Author Name Unknown Address Unknown Organization K01:[facility] - [address] [place] [address] Laboratory Report Ordering Provider Test Date Status SOTO SABILLON 06/09/2023 03:28:00 Final Observation Date Value Abnormality Reference (Units ) Status Magnesium 06/09/2023 03:28:00 2.1 1.5-2.6 (m g/dL) Final Performing Location [facility] - [address] [place] [address]
--- OUTSIDE RECORDS SUMMARY | 2023-07-01 20:42 | External Medical Summary ---
Author Name Unknown Address Unknown Organization : Laboratory Report Ordering Provider Test Date Status GEOVANNY RIOS 06/08/2023 12:54:13 Final Observation Date Value Abnormality Reference (Units ) Status Glucose Point of Care 06/08/2023 12:54:13 121 Above high normal 70-120 (mg/dL) Final Performing Location
--- OUTSIDE RECORDS SUMMARY | 2023-07-01 20:42 | External Medical Summary ---
Author Name Unknown Address Unknown Organization K01:[facility] [place] [address] [place] [address] Laboratory Report Ordering Provider Test Date Status SOTO SABILLON 06/07/2023 03:31:00 Final Observation Date Value Abnormality Reference (Units ) Status BUN 06/07/2023 03:31:00 18 6-20 (mg/dL) Final Creatinine 06/07/2023 03:31:00 0.6 0.6-1.2 (mg/dL) Final Glomerular filtration rate/1.73 sq M.predicted [Volume Rate/Area] in Serum, Plasma or Blood by Creatinine-based formula (CKD-EPI) 06/07/2023 03:31:00 >90 >=60 (mL/min) Final eGFR is calculated based on the CKD-EPI 2020 equation SODIUM 06/07/2023 03:31:00 134 Below low normal 135 -146 (mmol/L) Final Potassium 06/07/2023 03:31:00 4.6 3.5-5.1 (m mol/L) Final Cl 06/07/2023 03:31:00 99 98-107 (mm ol/L) Final CO2 06/07/2023 03:31:00 28 22-32 (mmo l/L) Final Anion gap 06/07/2023 03:31:00 7 7-15 (mmol /L) Final Glucose 06/07/2023 03:31:00 172 Above high normal 70 -120 (mg/dL) Final Calcium 06/07/2023 03:31:00 8.3 Below low normal 8.4 -10.2 (mg/dL) Final Performing Location [facility] - [address] [place] [address]
--- OUTSIDE RECORDS SUMMARY | 2023-07-01 20:42 | External Medical Summary ---
Author Name Unknown Address Unknown Organization : Laboratory Report Ordering Provider Test Date Status GEOVANNY RIOS 06/08/2023 17:22:54 Final Observation Date Value Abnormality Reference (Units ) Status Glucose Point of Care 06/08/2023 17:22:54 240 Above high normal 70-120 (mg/dL) Final Performing Location
--- OUTSIDE RECORDS SUMMARY | 2023-07-01 20:42 | External Medical Summary ---
Author Name Unknown Address Unknown Organization : Laboratory Report Ordering Provider Test Date Status ESTEBAN VASQUES 06/06/2023 18:05:54 Final Observation Date Value Abnormality Reference (Units ) Status Glucose Point of Care 06/06/2023 18:05:54 219 Above high normal 70-120 (mg/dL) Final Performing Location
--- OUTSIDE RECORDS SUMMARY | 2023-07-01 20:42 | External Medical Summary ---
Author Name Unknown Address Unknown Organization : Laboratory Report Ordering Provider Test Date Status GEOVANNY RIOS 06/09/2023 17:52:34 Final Observation Date Value Abnormality Reference (Units ) Status Glucose Point of Care 06/09/2023 17:52:34 156 Above high normal 70-120 (mg/dL) Final Performing Location
--- OUTSIDE RECORDS SUMMARY | 2023-07-01 20:42 | External Medical Summary ---
Author Name Unknown Address Unknown Organization : Laboratory Report Ordering Provider Test Date Status BRITTANIONURSCLEM 06/05/2023 18:35:33 Final Observation Date Value Abnormality Reference (Units ) Status Glucose Point of Care 06/05/2023 18:35:33 198 Above high normal 70-120 (mg/dL) Final Performing Location
--- OUTSIDE RECORDS SUMMARY | 2023-07-01 20:42 | External Medical Summary ---
Author Name Unknown Address Unknown Organization K01:LABORATORY [facility] [place] - [address] [facility] [address] Laboratory Report Ordering Provider Test Date Status SOTO SABILLON 06/09/2023 03:28:00 Final Observation Date Value Abnormality Reference (Units ) Status WBC, Total 06/09/2023 03:28:00 9.90 4.00-10.80 (K/uL) Final RBC 06/09/2023 03:28:00 2.30 4.50-5.25 (M/uL) Final Hemoglobin 06/09/2023 03:28:00 7.3 Below low normal 14.0-16.8 (g/dL) Final HCT 06/09/2023 03:28:00 23.9 Below low normal 40.0-48.4 (%) Final MCV 06/09/2023 03:28:00 103.9 82.0-99.5 (fL) Final MCH 06/09/2023 03:28:00 31.7 27.0-34.0 (pg) Final MCHC 06/09/2023 03:28:00 30.5 32.0-36.0 (g/dL) Final RDW 06/09/2023 03:28:00 16.5 11.5-15.5 (%) Final Platelets 06/09/2023 03:28:00 270 140-400 (K/uL) Final MPV 06/09/2023 03:28:00 9.6 6.6-11.1 (fL) Final Nucleated erythrocytes/100 leukocytes [Ratio] in Blood by Automated count 06/09/2023 03:28:00 0 <=0 (/100 WBCs) Final Performing Location LABORATORY [facility] [place] - [address] [facility] [address]
--- OUTSIDE RECORDS SUMMARY | 2023-07-01 20:42 | External Medical Summary ---
Author Name Unknown Address Unknown Organization K01:[facility] - [address] [place] [address] Laboratory Report Ordering Provider Test Date Status SOTO SABILLON 06/08/2023 03:34:00 Final Observation Date Value Abnormality Reference (Units ) Status Phosphate 06/08/2023 03:34:00 3.8 2.5-4.8 (m g/dL) Final Performing Location [facility] - [address] [place] [address]
--- OUTSIDE RECORDS SUMMARY | 2023-07-01 20:42 | External Medical Summary ---
Author Name Unknown Address Unknown Organization : Laboratory Report Ordering Provider Test Date Status GEOVANNY RIOS 06/09/2023 05:59:42 Final Observation Date Value Abnormality Reference (Units ) Status Glucose Point of Care 06/09/2023 05:59:42 118 70-120 (mg/dL) Final Performing Location
--- OUTSIDE RECORDS SUMMARY | 2023-07-01 20:42 | External Medical Summary ---
Author Name Unknown Address Unknown Organization : Laboratory Report Ordering Provider Test Date Status GEOVANNY RIOS 06/07/2023 12:27:30 Final Observation Date Value Abnormality Reference (Units ) Status Glucose Point of Care 06/07/2023 12:27:30 162 Above high normal 70-120 (mg/dL) Final Performing Location
--- OUTSIDE RECORDS SUMMARY | 2023-07-01 20:42 | External Medical Summary ---
Author Name Unknown Address Unknown Organization K01:[facility] [address] [place] [address] Laboratory Report Ordering Provider Test Date Status SOTO SABILLON 06/07/2023 03:31:00 Final Observation Date Value Abnormality Reference (Units ) Status Magnesium 06/07/2023 03:31:00 2.0 1.5-2.6 (m g/dL) Final Performing Location [facility] [address] [place] [address]
--- OUTSIDE RECORDS SUMMARY | 2023-07-01 20:42 | External Medical Summary ---
Author Name Unknown Address Unknown Organization : Laboratory Report Ordering Provider Test Date Status GEOVANNY RIOS 06/09/2023 18:00:38 Final Observation Date Value Abnormality Reference (Units ) Status Glucose Point of Care 06/09/2023 18:00:38 160 Above high normal 70-120 (mg/dL) Final Performing Location
--- OUTSIDE RECORDS SUMMARY | 2023-07-01 20:42 | External Medical Summary | Summary of Care ---
Author Name Unknown Organization [facility] Address [address] [place] [address] Phone [phone] Care Team Providers Care Wine And Spirits Clerk Name Role Phone RobelJoe Ronnie NORMAN Primary Care Provider [phone] [phone] Reason for Visit * Auth/Cert Specialty Diagnoses / Procedures Referred By Aguilar t Referred To Contact Referral ID Status Reason Start Date Expiration Date Visits Re quested Visits Authorized [id number] Encounter Details Date Type Department Care Team (Late st Contact Info) Description 06/05/2023 2:00 PM EST Documentation Radiation Oncology, [place] [address] [place] [address], [place] [id number] Alec Franklin MD [address] [place] [address] Allergies Active Allergy Reactions Criticality Noted Date Comments Sulfa Antibiotics Rash 11/02/2004 Rash documented as of this encounter (statuses as of 06/09/2023) Medications Medication Sig Dispensed Refills Start Date End Date Status Misc. Devices Cool mist humidification device Cool mist humidification device 1 Each 0 05/30/2023 Active Misc. Devices Portable suction device. 1 Each 0 05/30/2023 Active Misc. Devices Yankauer suction tips. 30 Each 5 05/30/2023 Active Misc. Devices 6-0 Shiley 6UN75H (uncuffed). 4 Each 5 05/30/2023 Active Misc. Devices 4-0 Shiley 4UN65H (uncuffed). 1 Each 0 05/30/2023 Active Misc. Devices Inner cannulas for 6-0 Shiley (6IC75). 50 Each 5 05/30/2023 Active Misc. 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 Dyslipidemia, goal [...] as of this encounter (statuses as of 06/09/2023) Social History Tobacco Use Types Packs/Day Years [...] Care Team (Late st Contact Info) Description 06/09/2023 3:00 PM EST Treatment Radiation Oncology, [address] [address] 06/10/2023 8:40 AM EST Treatment Radiation Oncology, [address] [address] 06/10/2023 3:00 PM EST Treatment Radiation Oncology, [address] [address] Health Maintenance Due Date Last Done Comments Depression Screening 1954 Diabetic Eye Exam 1960 Diabetic Foot Exam 1960 DTaP,Tdap,and Td Vaccines (1 - Tdap) 1961 Zoster Vaccines (1 of 2) 1992 Hepatitis B (1 of 3 - Risk 3-dose series) 2002 TSH 11/07/2021 11/07/2020 COVID-19 Vaccine (2 - 2022- season) 2023 02/13/2022 Pneumococcal Vaccine: 65+ Years Completed 11/13/2021, 04/13/2019, 04/05/2017 Influenza Vaccine (FLU shot) Completed 04/2023, 02/13/2022, 05/03/2021, Additional history exists GARDASIL-HPV IMMUNIZATION SERIES Aged Out No longer eligible based on patient's age to complete this topic MENINGOCOCCAL (MENACTRA/MENVEO) Aged Out No longer eligible based on patient's age to complete this topic documented as of this encounter Medical Devices Implanted Type Area Dietitian Chief Device Identifier Shelf Expiration Date Model / Serial / Lot Lens Intraoc 20.5 - [id number] - [id number] Implanted:Qty: 1 on 06/27/2020 by Mason Hassan MD at OR [facility] Right: Eye [employer] 10/16/2024 [id number] / [id number] / [id number] Lens Intraoc 21.0 - [id number] - [id number] Implanted:Qty: 1 on 07/11/2020 by Mason Hassan MD at OR [facility] Left: Eye [employer]CH [employer] LOMB 02/15/2025 [id number] / [id number] / [id number] documented as of this encounter Procedures Procedure Name Priority Date/Time Associated Diagnosis Comments RAD ONC ARIA SESSION SUMMARY Routine 06/09/2023 9:43 AM EST documented in this encounter Results * RAD ONC ARIA SESSION SUMMARY (06/09/2023 9:43 AM EST) Course ID [id number] ARIA RADIATION ONCOLOGY Course Intent Palliative ARIA RADIATION ONCOLOGY Course Start Date 06/05/2023 10:15 AM ARIA RADIATION ONCOLOGY RAD ONC ARIA SESSION NUMBER 1 ARIA RADIATION ONCOLOGY Course First Treatment Date 06/09/2023 9:39 AM ARIA RADIATION ONCOLOGY Course Last Treatment Date 06/09/2023 9:41 AM ARIA RADIATION ONCOLOGY Course Elapsed Days 0 ARIA RADIATION ONCOLOGY Reference Point ID [id number] ARIA RADIATION ONCOLOGY Reference Point Dosage Given to Date 3.5 Gy ARIA RADIATION ONCOLOGY Reference Point Session Dosage Given 3.5 Gy ARIA RADIATION ONCOLOGY Reference Point ID Total H&N ARIA RADIATION ONCOLOGY Reference Point Dosage Given to Date 3.5 Gy ARIA RADIATION ONCOLOGY Reference Point Session Dosage Given 3.5 Gy ARIA RADIATION ONCOLOGY Plan ID 10-H&N Quad ARIA RADIATION ONCOLOGY Plan Name Plan_R hypopharnx_PTV _4200 ARIA RADIATION ONCOLOGY Plan Fractions Treated to Date 1 ARIA RADIATION ONCOLOGY Plan Total Fractions Prescribed 12 ARIA RADIATION ONCOLOGY Plan Prescribed Dose Per Fraction 3.5 Gy ARIA RADIATION ONCOLOGY Plan Total Prescribed Dose 4,200 cGy ARIA RADIATION ONCOLOGY Plan Primary Reference Point [id number] ARIA RADIATION ONCOLOGY 06/09/2023 9:43 AM EST Weekly Treatments DRESSINGS ARIA RADIATION [...] the patient have Health Care Power of Menagerie Caretaker? No Bag Valve Device? Yes Intubation? Yes Cardiac Compressions? No Defibrillation? No Care Teams Wine And Spirits Clerk Relationship Specialty Start Date End Date RobelJoe DO Ronnie [address] [facility] [place] [address] BRITTANY Gagnon [address] PCP - General Family Medicine 10/22/19 documented as of this encounter
--- OUTSIDE RECORDS SUMMARY | 2023-07-01 20:42 | External Medical Summary | Summary of Care ---
Author Name Unknown Organization [facility] Address [address] [place] [address] Phone [phone] Care Team Providers Care Manager Of Training Name Role Phone Joe Huston Primary Care Provider [phone] [phone] Encounter Details Date Type Department Care Team (Late st Contact Info) Description 06/09/2023 8:40 AM EST Documentation Radiation Oncology, [place] [address] [place], [place] [phone] Misty Espinosa MD [address] [place] [address] BRITTANY Farias [phone] Allergies Active Allergy Reactions Criticality Noted Date Comments Sulfa Antibiotics Rash 11/02/2004 Rash documented as of this encounter (statuses as of 06/08/2023) Medications Medication Sig Dispensed Refills Start Date [...] as of this encounter (statuses as of 06/08/2023) Active Problems Problem Noted Date Diagnosed Date [...] Tuberculosis 05/01/2020 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 Dyslipidemia, goal [...] as of this encounter (statuses as of 06/08/2023) Social History Tobacco Use Types Packs/Day Years [...] as of this encounter Plan of Treatment Health Maintenance Due Date Last Done Comments [...] this encounter Medical Devices Implanted Type Area Side Boss Device Identifier Shelf Expiration Date Model / Serial / Lot Lens Intraoc 20.5 - [id number] - [id number] Implanted:Qty: 1 on 06/27/2020 by Mason Hassan MD at OR [facility] Right: Eye [employer]OM[employer] 10/16/2024 [id number] / [id number] / [id number] Lens Intraoc 21.0 - [id number] - [id number] Implanted:Qty: 1 on 07/11/2020 by Mason Hassan MD at OR [facility] Left: Eye BAUSCH [employer]OMB 02/15/2025 [id number] / [id number] / [id number] documented as of this encounter Advance Directives Latest Code Status on File Code Status Date Activated Date Inactivated Comments Limited Code 05/26/2023 4:21 PM This order reflects the patients wishes and were consensually agreed upon. Question Answer Comments Discussion of Advance Directives occurred with: Patient Does the patient have a Living Will? No Does the patient have Health Care Power of Loading Rack Supervisor? No Bag Valve Device? Yes Intubation? Yes Cardiac Compressions? No Defibrillation? No Care Teams Manager Of Training Relationship Specialty Start Date End Date Joe Huston DO [address] [place] [address] BRITTANY Gagnon [address] PCP - General Family Medicine 10/22/19 documented as of this encounter
--- OUTSIDE RECORDS SUMMARY | 2023-07-01 20:42 | External Medical Summary ---
Author Name Unknown Address Unknown Organization K01:[facility] [address] [place] [address] Laboratory Report Ordering Provider Test Date Status SOTO SABILLON 06/07/2023 03:31:00 Final Observation Date Value Abnormality Reference (Units ) Status Phosphate 06/07/2023 03:31:00 3.6 2.5-4.8 (m g/dL) Final Performing Location [facility] - [address] [place] [address]
--- OUTSIDE RECORDS SUMMARY | 2023-07-01 20:42 | External Medical Summary ---
Author Name Unknown Address Unknown Organization K01:[facility] - [address] [place] [address] Laboratory Report Ordering Provider Test Date Status SOTO SABILLON 06/08/2023 03:34:00 Final Observation Date Value Abnormality Reference (Units ) Status Magnesium 06/08/2023 03:34:00 2.0 1.5-2.6 (m g/dL) Final Performing Location [facility] - [address] [place] [address]
--- OUTSIDE RECORDS SUMMARY | 2023-07-01 20:42 | External Medical Summary | Summary of Care ---
Author Name Unknown Organization [facility] Address [address] [place] [address] Phone [phone] Care Team Providers Care Treasury Manager Name Role Phone Joe Huston Primary Care Provider [phone] [phone] Encounter Details Date Type Department Care Team (Late st Contact Info) Description 06/04/2023 Documentation Otolaryngology/Head & Neck/Facial Plastic Surgery [address] [place] [address] Virginia Solano MD [address] [place], [place] [phone] Laryngeal mass*; Vocal cord dysfunction; History of laryngeal cancer; Hypopharyngeal cancer (HCC) Allergies Active Allergy Reactions Criticality Noted Date Comments Sulfa Antibiotics Rash 11/02/2004 Rash documented as of this encounter (statuses as of 06/04/2023) Medications Medication Sig Dispensed Refills Start Date [...] as of this encounter (statuses as of 06/04/2023) Active Problems Problem Noted Date Diagnosed Date Impaired mobility and ADLs 06/02/2023 Urinary retention [...] Tuberculosis 05/01/2020 Coronary artery disease invo lving [place] coronary artery of [place] heart without angina pectoris 12/21/2019 Dyslipidemia, goal [...] as of this encounter (statuses as of 06/04/2023) Social History Tobacco Use Types Packs/Day Years [...] on file documented as of this encounter Progress Notes * Virginia Solano MD - 06/04/2023 11:25 AM EST Images from the original note were not included. 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 He is currently admitted to the hospital after presenting [place] [facility] for stridor. A possible new laryngeal mass was identified incidentally during an EGDexam in June 2022. A PET scan on October 2022 showed avidity in the right arytenoid. This area wasbiopsied at an outside institution and was positive for acute on chronic inflammation. He was most recently seen at another institution on 05/23/23 and was found to have bilateral vocal fold immobilityand an exudative process along the right arytenoid. CT neck showed an irregular lesion involving the right pyriform sinus and AE fold. He underwent tracheotomy, DL with biopsy, and esophagoscopy at [facility] on 05/28/23. Examination in the OR revealed an obvious lesion in the right hypopharynx, right arytenoid extending about 7 cm into the esophagus. Biopsy of this mass was positive for invasive SCC. CTof the chest, abdomen, and pelvis did not reveal any additional lesions concerning for metastatic disease. The patient is being presented today for pathology and imaging review, in addition to additional tumor board recommendations Past Medical History: Past Medical History: Diagnosis Date Diabetes mellitus (HCC) GERD (gastroesophageal reflux disease) History of cancer of larynx Hyperlipidemia Hypertension Myocardial infarction (HCC) Past Surgical History: Past Surgical History: Procedure Laterality Date CORONARY ARTERY BYPASS, SINGLE EGD, FLEXIBLE,W/ENDOSCOPIC US 07/30/2019 sludge, ascites / [facility] ERCP 10/22/2019 stent removed / [facility] 07/30/2019 benign biliary papillary stenosis, stent placed / [facility] INCISION OF [place], PLANNED N/A 05/28/2023 TRACHEOSTOMY PLANNED performed by Abimael De La Rosa DO at [place] [facility] LARYNGOSCOPY/DILATION N/A 05/28/2023 LARYNGOSCOPY DIRECT DILATION INITIAL performed by Abimael De La Rosa DO at [place] [facility] REMOVE CATARACT, INSERT LENS PROSTH Right 06/27/2020 RIGHT EXTRACAPSULAR CATARACT REMOVAL WITH INTRAOCULAR LENS performed by Mason Hassan MD at OR [facility] REMOVE CATARACT, INSERT LENS PROSTH Left 07/11/2020 LEFT EXTRACAPSULAR CATARACT REMOVAL WITH INTRAOCULAR LENS performed by Mason Hassan MD at OR [facility] TOTAL HIP REPLACEMENT & PROSTHESIS Bilateral Social History: Social History Socioeconomic History Marital status: Spouse [...] on file Housing Stability: Not on file Physical Examination (from 05/26/[address] De La Rosa): Procedure: Flexible nasopharyngolaryngoscopy was performed. The nose [...] of the pharynx and possible interferencewith swallowing. Imaging: CT Chest, Abdomen, Pelvis 06/03/23: IMPRESSION 1. Mild pulmonary edema and small bilateral pleural effusions. 2. Pulmonary edema limits evaluation for suspicious pulmonary nodules. No additional evidence of metastatic disease in the chest. Short-term follow-up CT chest recommended. 3. No evidence of metastatic disease in the abdomen/pelvi CT Neck with Contrast 05/26/23: IMPRESSION 1. 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 Pathology: Surgical Pathology from OR biopsy of right hypopharyngeal and arytenoid masses 05/28/23: A. Right hypopharynx, biopsy: Fragments of invasive squamous cell carcinoma, well to moderately- differentiated, keratinizing B. Right arytenoid, biopsy: Fragments of invasive squamous cell carcinoma, well to moderately- differentiated, keratinizing Impression: Farhad Dash is an 82-year-old male with a history of cT1 cNx Mx squamous cell carcinomaof the right true vocal fold treated with radiotherapy in 2004. A possible new laryngeal mass was identified incidentally during an EGD performed in June 2022 and PET scan showed avidity of the right arytenoid. 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 Consensus on Recommendations: Discussion during tumor board today centered around the extent of thepatient's disease. On imaging, the mass appears locally destructive and erosive. The lesion seems to abutting the thyroid cartilage and there is possible chondronecrosis of the cricoid (versus tumor necrosis). There is also soft tissue thickening of the esophagus. Again, we discussed that there areno imaging findings suggestive of metastatic disease. A surgical option for this patient would require at least a total laryngectomy, esophagectomy with gastric pull up, which could be challenging for the patient to undergo given his comorbidities and overall health. After multidisciplinary discussion, the official tumor board recommendation was for inpatient radiation oncology, medical oncology,and palliative medicine consultation. Multi-disciplinary Team: The patient was discussed today along with members of the multidisciplinary head and neck tumor conference including representatives from Otolaryngology (Dr. Dillon, Dr. Conrad, Dr. De La Rosa, Dr. Germain), Radiology (Dr. Pace), Oral Surgery (Dr. Spaulding, Dr. Cordero),Pathology (Dr. Faye), Radiation Oncology (Dr. Carlson, Dr. Souza, Dr. Mortensen), Dentistry (Dr. Tate), and Medical Oncology (Dr. Diego, Dr. Meadows). The nature of the patient's condition was discussed at length. Attending: DO Virginia Barrios MD PGY-2 Otolaryngology Resident 06/04/2023 2:49 PM documented in this encounter Plan of Treatment Health Maintenance Due Date Last Done Comments Depression Screening 1954 Albumin/Creatinine Ratio 1960 Diabetic Eye Exam 1960 Diabetic Foot Exam 1960 DTaP,Tdap,and Td Vaccines (1 - Tdap) 1961 Zoster Vaccines (1 of 2) 1992 Hepatitis B (1 of 3 - Risk 3-dose series) 2002 DXA Scan 09/23/2021 09/24/2019, 09/24/2019 TSH 11/07/2021 11/07/2020 COVID-19 Vaccine (2 - 2022-24 season) 2023 02/13/2022 HbA1c 11/25/2023 05/27/2023, 04/19, 04/25/2023, Additional history exists GFR 06/04/2024 06/04/2023, 05/19, 06/02/2023, Additional history exists VITAMIN D LEVEL ONCE IN A LIFETIME-USE SMARTSET# [id number] Completed 07/23/2019 Pneumococcal Vaccine: 65+ Years Completed 11/13/2021, 04/13/2019, 04/05/2017 Influenza Vaccine (FLU shot) Completed 04/2023, 02/13/2022, 05/03/2021, Additional history exists GARDASIL-HPV IMMUNIZATION SERIES Aged Out No longer eligible based on patient's age to complete this topic MENINGOCOCCAL (MENACTRA/MENVEO) Aged Out No longer eligible based on patient's age to complete this topic documented as of this encounter Medical Devices Implanted Type Area Research Intern Device Identifier Shelf Expiration Date Model / Serial / Lot Lens Intraoc 20.5 - [id number] - [id number] Implanted:Qty: 1 on 06/27/2020 by Mason Hassan MD at OR [facility] Right: Eye [employer] 10/16/2024 [id number] / [id number] / [id number] Lens Intraoc 21.0 - [id number] - [id number] Implanted:Qty: 1 on 07/11/2020 by Mason Hassan MD at OR [facility] Left: Eye BA[employer]CH [employer] LOMB 02/15/2025 [id number] / [id number] / [id number] documented as of this encounter Visit Diagnoses Diagnosis Laryngeal mass- Primary Other diseases of larynx Vocal cord dysfunction Other diseases of vocal cords History of laryngeal cancer Personal history of malignant neoplasm of larynx Hypopharyngeal cancer (HCC) Malignant neoplasm of hypopharynx, unspecified site documented in this encounter Advance Directives Latest Code Status on File Code Status Date Activated Date Inactivated Comments Limited Code 05/26/2023 4:21 PM This order reflects the patients wishes and were consensually agreed upon. Question Answer Comments Discussion of Advance Directives occurred with: Patient Does the patient have a Living Will? No Does the patient have Health Care Power of Retail Receiving Clerk? No Bag Valve Device? Yes Intubation? Yes Cardiac Compressions? No Defibrillation? No Care Teams Treasury Manager Relationship Specialty Start Date End Date Joe Huston DO [address] [place] [address] BRITTANY Gagnon [address] PCP - General Family Medicine 10/22/19 documented as of this encounter
--- OUTSIDE RECORDS SUMMARY | 2023-07-01 20:42 | External Medical Summary ---
Author Name Unknown Address Unknown Organization K01:[facility] [place] - [address] [place] [address] Laboratory Report Ordering Provider Test Date Status SOTO SABILLON 06/08/2023 03:34:00 Final Observation Date Value Abnormality Reference (Units ) Status BUN 06/08/2023 03:34:00 18 6-20 (mg/dL) Final Creatinine 06/08/2023 03:34:00 0.6 0.6-1.2 (mg/dL) Final Glomerular filtration rate/1.73 sq M.predicted [Volume Rate/Area] in Serum, Plasma or Blood by Creatinine-based formula (CKD-EPI) 06/08/2023 03:34:00 >90 >=60 (mL/min) Final eGFR is calculated based on the CKD-EPI 2020 equation SODIUM 06/08/2023 03:34:00 134 Below low normal 135 -146 (mmol/L) Final Potassium 06/08/2023 03:34:00 4.7 3.5-5.1 (m mol/L) Final Cl 06/08/2023 03:34:00 99 98-107 (mm ol/L) Final CO2 06/08/2023 03:34:00 28 22-32 (mmo l/L) Final Anion gap 06/08/2023 03:34:00 7 7-15 (mmol /L) Final Glucose 06/08/2023 03:34:00 172 Above high normal 70 -120 (mg/dL) Final Calcium 06/08/2023 03:34:00 8.3 Below low normal 8.4 -10.2 (mg/dL) Final Performing Location [facility] - [address] [place] [address]
--- OUTSIDE RECORDS SUMMARY | 2023-07-01 20:42 | External Medical Summary ---
Author Name Unknown Address Unknown Organization : Laboratory Report Ordering Provider Test Date Status BRITTANIONURSAL 06/06/2023 05:44:00 Final Observation Date Value Abnormality Reference (Units ) Status Glucose Point of Care 06/06/2023 05:44:00 232 Above high normal 70-120 (mg/dL) Final Performing Location
--- OUTSIDE RECORDS SUMMARY | 2023-07-01 20:42 | External Medical Summary ---
Author Name Unknown Address Unknown Organization : Laboratory Report Ordering Provider Test Date Status GEOVANNY RIOS 06/07/2023 17:44:22 Final Observation Date Value Abnormality Reference (Units ) Status Glucose Point of Care 06/07/2023 17:44:22 201 Above high normal 70-120 (mg/dL) Final Performing Location
--- OUTSIDE RECORDS SUMMARY | 2023-07-01 20:42 | External Medical Summary ---
Author Name Unknown Address Unknown Organization : Laboratory Report Ordering Provider Test Date Status BRITTANIONURSAL 06/05/2023 04:05:34 Final Observation Date Value Abnormality Reference (Units ) Status Glucose Point of Care 06/05/2023 04:05:34 204 Above high normal 70-120 (mg/dL) Final Performing Location
--- OUTSIDE RECORDS SUMMARY | 2023-07-01 20:42 | External Medical Summary ---
Author Name Unknown Address Unknown Organization : Laboratory Report Ordering Provider Test Date Status GEOVANNY RIOS 06/08/2023 23:41:11 Final Observation Date Value Abnormality Reference (Units ) Status Glucose Point of Care 06/08/2023 23:41:11 107 70-120 (mg/dL) Final Performing Location
--- OUTSIDE RECORDS SUMMARY | 2023-07-01 20:42 | External Medical Summary ---
Author Name Unknown Address Unknown Organization : Laboratory Report Ordering Provider Test Date Status ESTEBAN VASQUES 06/06/2023 11:59:29 Final Observation Date Value Abnormality Reference (Units ) Status Glucose Point of Care 06/06/2023 11:59:29 199 Above high normal 70-120 (mg/dL) Final Performing Location
--- OUTSIDE RECORDS SUMMARY | 2023-07-01 20:42 | External Medical Summary ---
Author Name Unknown Address Unknown Organization : Laboratory Report Ordering Provider Test Date Status GEOVANNY RIOS 06/09/2023 11:50:27 Final Observation Date Value Abnormality Reference (Units ) Status Glucose Point of Care 06/09/2023 11:50:27 131 Above high normal 70-120 (mg/dL) Final Performing Location
--- OUTSIDE RECORDS SUMMARY | 2023-07-01 20:42 | External Medical Summary ---
Author Name Unknown Address Unknown Organization [id number]:LABORATORY [facility] [place] - [address] [place] [address] Laboratory Report Ordering Provider Test Date Status SOTO SABILLON 06/05/2023 04:47:00 Final Observation Date Value Abnormality Reference (Units ) Status BUN 06/05/2023 04:47:00 20 6-20 (mg/dL) Final Creatinine 06/05/2023 04:47:00 0.6 0.6-1.2 (mg/dL) Final Glomerular filtration rate/1.73 sq M.predicted [Volume Rate/Area] in Serum, Plasma or Blood by Creatinine-based formula (CKD-EPI) 06/05/2023 04:47:00 >90 >=60 (mL/min) Final eGFR is calculated based on the CKD-EPI 2020 equation SODIUM 06/05/2023 04:47:00 136 135-146 (m mol/L) Final Potassium 06/05/2023 04:47:00 4.7 3.5-5.1 (m mol/L) Final Cl 06/05/2023 04:47:00 101 98-107 (mm ol/L) Final CO2 06/05/2023 04:47:00 29 22-32 (mmo l/L) Final Anion gap 06/05/2023 04:47:00 6 Below low normal 7-1 5 (mmol/L) Final Glucose 06/05/2023 04:47:00 220 Above high normal 70 -120 (mg/dL) Final Calcium 06/05/2023 04:47:00 8.2 Below low normal 8.4 -10.2 (mg/dL) Final Performing Location LABORATORY [facility] [place] - [address] [place] [address]
--- OUTSIDE RECORDS SUMMARY | 2023-07-01 20:42 | External Medical Summary ---
Author Name Unknown Address Unknown Organization [id number]:LABORATORY [facility] [place] - [address] [facility] [address] Laboratory Report Ordering Provider Test Date Status SOTO SABILLON 06/08/2023 03:34:00 Final Observation Date Value Abnormality Reference (Units ) Status WBC, Total 06/08/2023 03:34:00 8.82 4.00-10.80 (K/uL) Final RBC 06/08/2023 03:34:00 2.33 4.50-5.25 (M/uL) Final Hemoglobin 06/08/2023 03:34:00 7.5 Below low normal 14.0-16.8 (g/dL) Final HCT 06/08/2023 03:34:00 23.8 Below low normal 40.0-48.4 (%) Final MCV 06/08/2023 03:34:00 102.1 82.0-99.5 (fL) Final MCH 06/08/2023 03:34:00 32.2 27.0-34.0 (pg) Final MCHC 06/08/2023 03:34:00 31.5 32.0-36.0 (g/dL) Final RDW 06/08/2023 03:34:00 16.8 11.5-15.5 (%) Final Platelets 06/08/2023 03:34:00 242 140-400 (K/uL) Final MPV 06/08/2023 03:34:00 9.4 6.6-11.1 (fL) Final Nucleated erythrocytes/100 leukocytes [Ratio] in Blood by Automated count 06/08/2023 03:34:00 0 <=0 (/100 WBCs) Final Performing Location LABORATORY [facility] [place] - [address] [facility] [address]
--- OUTSIDE RECORDS SUMMARY | 2023-07-01 20:42 | External Medical Summary ---
Author Name Unknown Address Unknown Organization [id number]:[facility] - [address] [place] [address] Laboratory Report Ordering Provider Test Date Status SOTO SABILLON 06/05/2023 04:47:00 Final Observation Date Value Abnormality Reference (Units ) Status Magnesium 06/05/2023 04:47:00 2.0 1.5-2.6 (m g/dL) Final Performing Location [facility] - [address] [place] [address]
--- OUTSIDE RECORDS SUMMARY | 2023-07-01 20:42 | External Medical Summary ---
Author Name Unknown Address Unknown Organization : Laboratory Report Ordering Provider Test Date Status BRITTANIONURSAL 06/05/2023 12:04:02 Final Observation Date Value Abnormality Reference (Units ) Status Glucose Point of Care 06/05/2023 12:04:02 146 Above high normal 70-120 (mg/dL) Final Performing Location
--- OUTSIDE RECORDS SUMMARY | 2023-07-01 20:42 | External Medical Summary ---
Author Name Unknown Address Unknown Organization [id number]:LAB[facility]ATORY [facility] - [address] [place] [address] Laboratory Report Ordering Provider Test Date Status SOTO SABILLON 06/09/2023 03:28:00 Final Observation Date Value Abnormality Reference (Units ) Status Phosphate 06/09/2023 03:28:00 4.5 2.5-4.8 (m g/dL) Final Performing Location [facility] - [address] [place] [address]
--- OUTSIDE RECORDS SUMMARY | 2023-07-01 20:42 | External Medical Summary ---
Author Name Unknown Address Unknown Organization : Laboratory Report Ordering Provider Test Date Status BRITTANIONURSCLEM 06/04/2023 11:36:33 Final Observation Date Value Abnormality Reference (Units ) Status Glucose Point of Care 06/04/2023 11:36:33 158 Above high normal 70-120 (mg/dL) Final Performing Location
--- OUTSIDE RECORDS SUMMARY | 2023-07-01 20:42 | External Medical Summary ---
Author Name Unknown Address Unknown Organization [id number]:LAB[facility]ATORY [facility] - [address] [place] [address] Laboratory Report Ordering Provider Test Date Status SOTO SABILLON 06/06/2023 04:38:00 Final Observation Date Value Abnormality Reference (Units ) Status Magnesium 06/06/2023 04:38:00 2.1 1.5-2.6 (m g/dL) Final Performing Location LAB[facility] - [address] [place] [address]
--- OUTSIDE RECORDS SUMMARY | 2023-07-01 20:42 | External Medical Summary ---
Author Name Unknown Address Unknown Organization : Laboratory Report Ordering Provider Test Date Status BRITTANIONURSCLEM 06/05/2023 00:09:58 Final Observation Date Value Abnormality Reference (Units ) Status Glucose Point of Care 06/05/2023 00:09:58 222 Above high normal 70-120 (mg/dL) Final Performing Location
--- OUTSIDE RECORDS SUMMARY | 2023-07-01 20:42 | External Medical Summary ---
Author Name Unknown Address Unknown Organization : Laboratory Report Ordering Provider Test Date Status GEOVANNY RIOS 06/08/2023 06:16:25 Final Observation Date Value Abnormality Reference (Units ) Status Glucose Point of Care 06/08/2023 06:16:25 216 Above high normal 70-120 (mg/dL) Final Performing Location
--- OUTSIDE RECORDS SUMMARY | 2023-07-01 20:43 | External Medical Summary ---
Author Name Unknown Address Unknown Organization : Laboratory Report Ordering Provider Test Date Status GISELLA RAMON 05/31/2023 17:05:27 Final Observation Date Value Abnormality Reference (Units ) Status Glucose Point of Care 05/31/2023 17:05:27 120 70-120 (mg/dL) Final Performing Location
--- OUTSIDE RECORDS SUMMARY | 2023-07-01 20:43 | External Medical Summary ---
Author Name Unknown Address Unknown Organization : Laboratory Report Ordering Provider Test Date Status GISELLA RAMON 05/31/2023 11:36:05 Final Observation Date Value Abnormality Reference (Units ) Status Glucose Point of Care 05/31/2023 11:36:05 198 Above high normal 70-120 (mg/dL) Final Performing Location
--- OUTSIDE RECORDS SUMMARY | 2023-07-01 20:43 | External Medical Summary ---
Author Name Unknown Address Unknown Organization : Laboratory Report Ordering Provider Test Date Status GISELLA RAMON 05/31/2023 05:12:46 Final Observation Date Value Abnormality Reference (Units ) Status Glucose Point of Care 05/31/2023 05:12:46 213 Above high normal 70-120 (mg/dL) Final Performing Location
--- OUTSIDE RECORDS SUMMARY | 2023-07-01 20:43 | External Medical Summary ---
Author Name Unknown Address Unknown Organization K01:LABORATORY [facility] [place] - [address] [facility] [address] Laboratory Report Ordering Provider Test Date Status HE HERNANDEZ 06/04/2023 04:34:00 Final Observation Date Value Abnormality Reference (Units ) Status Calcium.ionized [Moles/volume] in Blood by Ion-selective membrane electrode (ISE) 06/04/2023 04:34:00 1.17 1.13-1.32 (mmol/L) Final Performing Location LABORATORY [facility] [place] - [address] [facility] [address]
--- OUTSIDE RECORDS SUMMARY | 2023-07-01 20:43 | External Medical Summary ---
Author Name Unknown Address Unknown Organization : Laboratory Report Ordering Provider Test Date Status BRITTANIONURSAL 06/01/2023 17:14:11 Final Observation Date Value Abnormality Reference (Units ) Status Glucose Point of Care 06/01/2023 17:14:11 112 70-120 (mg/dL) Final Performing Location
--- OUTSIDE RECORDS SUMMARY | 2023-07-01 20:43 | External Medical Summary ---
Author Name Unknown Address Unknown Organization : Laboratory Report Ordering Provider Test Date Status BRITTANIONURSAL 06/01/2023 11:28:27 Final Observation Date Value Abnormality Reference (Units ) Status Glucose Point of Care 06/01/2023 11:28:27 220 Above high normal 70-120 (mg/dL) Final Performing Location
--- OUTSIDE RECORDS SUMMARY | 2023-07-01 20:43 | External Medical Summary ---
Author Name Unknown Address Unknown Organization : Laboratory Report Ordering Provider Test Date Status GISELLA RAMON 05/30/2023 17:10:04 Final Observation Date Value Abnormality Reference (Units ) Status Glucose Point of Care 05/30/2023 17:10:04 178 Above high normal 70-120 (mg/dL) Final Performing Location
--- OUTSIDE RECORDS SUMMARY | 2023-07-01 20:43 | External Medical Summary ---
Author Name Unknown Address Unknown Organization K01:LABORATORY [facility] [place] - [address] [facility] [address] Laboratory Report Ordering Provider Test Date Status SOTO SABILLON 06/01/2023 04:44:00 Final Observation Date Value Abnormality Reference (Units ) Status WBC, Total 06/01/2023 04:44:00 5.91 4.00-10.80 (K/uL) Final RBC 06/01/2023 04:44:00 2.53 4.50-5.25 (M/uL) Final Hemoglobin 06/01/2023 04:44:00 8.2 Below low normal 14.0-16.8 (g/dL) Final HCT 06/01/2023 04:44:00 26.0 Below low normal 40.0-48.4 (%) Final MCV 06/01/2023 04:44:00 102.8 82.0-99.5 (fL) Final MCH 06/01/2023 04:44:00 32.4 27.0-34.0 (pg) Final MCHC 06/01/2023 04:44:00 31.5 32.0-36.0 (g/dL) Final RDW 06/01/2023 04:44:00 18.1 11.5-15.5 (%) Final Platelets 06/01/2023 04:44:00 144 140-400 (K/uL) Final MPV 06/01/2023 04:44:00 9.3 6.6-11.1 (fL) Final Nucleated erythrocytes/100 leukocytes [Ratio] in Blood by Automated count 06/01/2023 04:44:00 0 <=0 (/100 WBCs) Final Performing Location LABORATORY C - [address] [facility] [address]
--- OUTSIDE RECORDS SUMMARY | 2023-07-01 20:43 | External Medical Summary ---
Author Name Unknown Address Unknown Organization : Laboratory Report Ordering Provider Test Date Status BRITTANIONURSAL 06/02/2023 12:49:50 Final Observation Date Value Abnormality Reference (Units ) Status Glucose Point of Care 06/02/2023 12:49:50 144 Above high normal 70-120 (mg/dL) Final Performing Location
--- OUTSIDE RECORDS SUMMARY | 2023-07-01 20:43 | External Medical Summary ---
Author Name Unknown Address Unknown Organization : Laboratory Report Ordering Provider Test Date Status BRITTANIONURSCLEM 06/04/2023 07:47:10 Final Observation Date Value Abnormality Reference (Units ) Status Glucose Point of Care 06/04/2023 07:47:10 258 Above high normal 70-120 (mg/dL) Final Performing Location
--- OUTSIDE RECORDS SUMMARY | 2023-07-01 20:43 | External Medical Summary ---
Author Name Unknown Address Unknown Organization K01:LAB[facility]ATORY [facility] - [address] [place] [address] Laboratory Report Ordering Provider Test Date Status SOTO SABILLON 06/04/2023 04:34:00 Final Observation Date Value Abnormality Reference (Units ) Status Phosphate 06/04/2023 04:34:00 2.7 2.5-4.8 (m g/dL) Final Performing Location LAB[facility]AT[facility] - [address] [place] [address]
--- OUTSIDE RECORDS SUMMARY | 2023-07-01 20:43 | External Medical Summary ---
Author Name Unknown Address Unknown Organization : Laboratory Report Ordering Provider Test Date Status BRITTANIONURSAL 06/03/2023 11:54:45 Final Observation Date Value Abnormality Reference (Units ) Status Glucose Point of Care 06/03/2023 11:54:45 79 70-120 (mg/dL) Final Performing Location
--- OUTSIDE RECORDS SUMMARY | 2023-07-01 20:43 | External Medical Summary ---
Author Name Unknown Address Unknown Organization : Laboratory Report Ordering Provider Test Date Status BRITTANIONURSAL 06/03/2023 17:14:09 Final Observation Date Value Abnormality Reference (Units ) Status Glucose Point of Care 06/03/2023 17:14:09 144 Above high normal 70-120 (mg/dL) Final Performing Location
--- OUTSIDE RECORDS SUMMARY | 2023-07-01 20:43 | External Medical Summary ---
Author Name Unknown Address Unknown Organization K01:LABORATORY [facility] [place] - [address] [place] [address] Laboratory Report Ordering Provider Test Date Status SOTO SABILLON 06/02/2023 04:37:00 Final Observation Date Value Abnormality Reference (Units ) Status BUN 06/02/2023 04:37:00 18 6-20 (mg/dL) Final Creatinine 06/02/2023 04:37:00 0.6 0.6-1.2 (mg/dL) Final Glomerular filtration rate/1.73 sq M.predicted [Volume Rate/Area] in Serum, Plasma or Blood by Creatinine-based formula (CKD-EPI) 06/02/2023 04:37:00 >90 >=60 (mL/min) Final eGFR is calculated based on the CKD-EPI 2020 equation SODIUM 06/02/2023 04:37:00 137 135-146 (m mol/L) Final Potassium 06/02/2023 04:37:00 4.7 3.5-5.1 (m mol/L) Final Cl 06/02/2023 04:37:00 102 98-107 (mm ol/L) Final CO2 06/02/2023 04:37:00 30 22-32 (mmo l/L) Final Anion gap 06/02/2023 04:37:00 5 Below low normal 7-1 5 (mmol/L) Final Glucose 06/02/2023 04:37:00 152 Above high normal 70 -120 (mg/dL) Final Calcium 06/02/2023 04:37:00 8.0 Below low normal 8.4 -10.2 (mg/dL) Final Performing Location LABORATORY [facility] [place] [place] - [address] [place] [address]
--- OUTSIDE RECORDS SUMMARY | 2023-07-01 20:43 | External Medical Summary ---
Author Name Unknown Address Unknown Organization K01:LAB[facility]ATORY [facility] - [address] [place] [address] Laboratory Report Ordering Provider Test Date Status SOTO SABILLON 06/03/2023 06:17:00 Final Observation Date Value Abnormality Reference (Units ) Status Magnesium 06/03/2023 06:17:00 1.9 1.5-2.6 (m g/dL) Final Performing Location LAB[facility] - [address] [place] [address]
--- OUTSIDE RECORDS SUMMARY | 2023-07-01 20:43 | External Medical Summary ---
Author Name Unknown Address Unknown Organization : Laboratory Report Ordering Provider Test Date Status BRITTANIONURSAL 06/04/2023 04:03:24 Final Observation Date Value Abnormality Reference (Units ) Status Glucose Point of Care 06/04/2023 04:03:24 245 Above high normal 70-120 (mg/dL) Final Performing Location
--- OUTSIDE RECORDS SUMMARY | 2023-07-01 20:43 | External Medical Summary ---
Author Name Unknown Address Unknown Organization K01:LAB[facility]ATORY [facility] [place] [address] [place] [address] Laboratory Report Ordering Provider Test Date Status SOTO SABILLON 06/04/2023 04:34:00 Final Observation Date Value Abnormality Reference (Units ) Status BUN 06/04/2023 04:34:00 17 6-20 (mg/dL) Final Creatinine 06/04/2023 04:34:00 0.6 0.6-1.2 (mg/dL) Final Glomerular filtration rate/1.73 sq M.predicted [Volume Rate/Area] in Serum, Plasma or Blood by Creatinine-based formula (CKD-EPI) 06/04/2023 04:34:00 >90 >=60 (mL/min) Final eGFR is calculated based on the CKD-EPI 2020 equation SODIUM 06/04/2023 04:34:00 133 Below low normal 135 -146 (mmol/L) Final Potassium 06/04/2023 04:34:00 4.4 3.5-5.1 (m mol/L) Final Cl 06/04/2023 04:34:00 100 98-107 (mm ol/L) Final CO2 06/04/2023 04:34:00 27 22-32 (mmo l/L) Final Anion gap 06/04/2023 04:34:00 6 Below low normal 7-1 5 (mmol/L) Final Glucose 06/04/2023 04:34:00 278 Above high normal 70 -120 (mg/dL) Final Calcium 06/04/2023 04:34:00 7.9 Below low normal 8.4 -10.2 (mg/dL) Final Performing Location LABORATORY [facility] - [address] [place] [address]
--- OUTSIDE RECORDS SUMMARY | 2023-07-01 20:43 | External Medical Summary ---
Author Name Unknown Address Unknown Organization K01:[facility] - [address] [place] [address] Laboratory Report Ordering Provider Test Date Status SOTO SABILLON 06/03/2023 06:17:00 Final Observation Date Value Abnormality Reference (Units ) Status Phosphate 06/03/2023 06:17:00 2.7 2.5-4.8 (m g/dL) Final Performing Location LAB[facility] - [address] [place] [address]
--- OUTSIDE RECORDS SUMMARY | 2023-07-01 20:43 | External Medical Summary ---
Author Name Unknown Address Unknown Organization : Laboratory Report Ordering Provider Test Date Status BRITTANIONURSAL 06/02/2023 23:12:00 Final Observation Date Value Abnormality Reference (Units ) Status Glucose Point of Care 06/02/2023 23:12:00 125 Above high normal 70-120 (mg/dL) Final Performing Location
--- OUTSIDE RECORDS SUMMARY | 2023-07-01 20:43 | External Medical Summary ---
Author Name Unknown Address Unknown Organization K01:LABORATORY [facility] - [address] [place] [address] Laboratory Report Ordering Provider Test Date Status SOTO SABILLON 06/04/2023 04:34:00 Final Observation Date Value Abnormality Reference (Units ) Status Magnesium 06/04/2023 04:34:00 2.1 1.5-2.6 (m g/dL) Final Performing Location LAB[facility] - [address] [place] [address]
--- OUTSIDE RECORDS SUMMARY | 2023-07-01 20:43 | External Medical Summary ---
Author Name Unknown Address Unknown Organization K01:[facility] [place] [address] [place] [address] Laboratory Report Ordering Provider Test Date Status HE HERNANDEZ 06/04/2023 04:34:00 Final Observation Date Value Abnormality Reference (Units ) Status Albumin 06/04/2023 04:34:00 2.5 Below low normal 3.8-5.0 (g/dL) Final AST (Aspartate aminotransferase) 06/04/2023 04:34:00 13 10-50 (U/L) Final Alk Phos 06/04/2023 04:34:00 59 35-130 (U/L) Final ALT (Alanine aminotransferase) 06/04/2023 04:34:00 8 Below low normal 10-50 (U/L) Final Bilirubin, Total 06/04/2023 04:34:00 0.3 <=1.2 (mg/dL) Final Bilirubin, Direct 06/04/2023 04:34:00 <0.2 0.0-0.3 (mg/dL) Final Protein 06/04/2023 04:34:00 5.2 Below low normal 6.0-8.3 (g/dL) Final Performing Location LAB[facility]ORY [facility] [place] [address] [place] [address]
--- OUTSIDE RECORDS SUMMARY | 2023-07-01 20:43 | External Medical Summary ---
Author Name Unknown Address Unknown Organization : Laboratory Report Ordering Provider Test Date Status GISELLA RAMON 06/01/2023 05:07:06 Final Observation Date Value Abnormality Reference (Units ) Status Glucose Point of Care 06/01/2023 05:07:06 137 Above high normal 70-120 (mg/dL) Final Performing Location
--- OUTSIDE RECORDS SUMMARY | 2023-07-01 20:43 | External Medical Summary ---
Author Name Unknown Address Unknown Organization : Laboratory Report Ordering Provider Test Date Status GISELLA RAMON 05/30/2023 23:56:50 Final Observation Date Value Abnormality Reference (Units ) Status Glucose Point of Care 05/30/2023 23:56:50 197 Above high normal 70-120 (mg/dL) Final Performing Location
--- OUTSIDE RECORDS SUMMARY | 2023-07-01 20:43 | External Medical Summary ---
Author Name Unknown Address Unknown Organization K01:LABORATORY [facility] [place] - [address] [facility] [address] Laboratory Report Ordering Provider Test Date Status SOTO SABILLON 06/03/2023 06:17:00 Final Observation Date Value Abnormality Reference (Units ) Status WBC, Total 06/03/2023 06:17:00 6.58 4.00-10.80 (K/uL) Final RBC 06/03/2023 06:17:00 2.41 4.50-5.25 (M/uL) Final Hemoglobin 06/03/2023 06:17:00 7.8 Below low normal 14.0-16.8 (g/dL) Final HCT 06/03/2023 06:17:00 25.1 Below low normal 40.0-48.4 (%) Final MCV 06/03/2023 06:17:00 104.1 82.0-99.5 (fL) Final MCH 06/03/2023 06:17:00 32.4 27.0-34.0 (pg) Final MCHC 06/03/2023 06:17:00 31.1 32.0-36.0 (g/dL) Final RDW 06/03/2023 06:17:00 17.5 11.5-15.5 (%) Final Platelets 06/03/2023 06:17:00 170 140-400 (K/uL) Final MPV 06/03/2023 06:17:00 9.6 6.6-11.1 (fL) Final Nucleated erythrocytes/100 leukocytes [Ratio] in Blood by Automated count 06/03/2023 06:17:00 0 <=0 (/100 WBCs) Final Performing Location [facility] - [address] [facility] [address]
--- OUTSIDE RECORDS SUMMARY | 2023-07-01 20:43 | External Medical Summary ---
Author Name Unknown Address Unknown Organization K01:[place] [facility] [place] [address] [place] [address] Laboratory Report Ordering Provider Test Date Status SOTO SABILLON 06/01/2023 04:44:00 Final Observation Date Value Abnormality Reference (Units ) Status BUN 06/01/2023 04:44:00 16 6-20 (mg/dL) Final Creatinine 06/01/2023 04:44:00 0.5 Below low normal 0.6-1.2 (mg/dL) Final Glomerular filtration rate/1.73 sq M.predicted [Volume Rate/Area] in Serum, Plasma or Blood by Creatinine-based formula (CKD-EPI) 06/01/2023 04:44:00 >90 >=60 (mL/min) Final eGFR is calculated based on the CKD-EPI 2020 equation SODIUM 06/01/2023 04:44:00 137 135-146 (m mol/L) Final Potassium 06/01/2023 04:44:00 4.2 3.5-5.1 (m mol/L) Final Cl 06/01/2023 04:44:00 104 98-107 (mm ol/L) Final CO2 06/01/2023 04:44:00 30 22-32 (mmo l/L) Final Anion gap 06/01/2023 04:44:00 3 Below low normal 7-1 5 (mmol/L) Final Glucose 06/01/2023 04:44:00 128 Above high normal 70 -120 (mg/dL) Final Calcium 06/01/2023 04:44:00 7.9 Below low normal 8.4 -10.2 (mg/dL) Final Performing Location LABORATORY [facility] - [address] [place] [address]
--- OUTSIDE RECORDS SUMMARY | 2023-07-01 20:43 | External Medical Summary ---
Author Name Unknown Address Unknown Organization K01:LABORATORY [facility] [place] - [address] [place] [address] Laboratory Report Ordering Provider Test Date Status SOTO SABILLON 05/31/2023 05:01:00 Final Observation Date Value Abnormality Reference (Units ) Status BUN 05/31/2023 05:01:00 13 6-20 (mg/dL) Final Creatinine 05/31/2023 05:01:00 0.5 Below low normal 0.6-1.2 (mg/dL) Final Glomerular filtration rate/1.73 sq M.predicted [Volume Rate/Area] in Serum, Plasma or Blood by Creatinine-based formula (CKD-EPI) 05/31/2023 05:01:00 >90 >=60 (mL/min) Final eGFR is calculated based on the CKD-EPI 2020 equation SODIUM 05/31/2023 05:01:00 138 135-146 (m mol/L) Final Potassium 05/31/2023 05:01:00 4.4 3.5-5.1 (m mol/L) Final Cl 05/31/2023 05:01:00 104 98-107 (mm ol/L) Final CO2 05/31/2023 05:01:00 27 22-32 (mmo l/L) Final Anion gap 05/31/2023 05:01:00 7 7-15 (mmol /L) Final Glucose 05/31/2023 05:01:00 219 Above high normal 70 -120 (mg/dL) Final Calcium 05/31/2023 05:01:00 7.7 Below low normal 8.4 -10.2 (mg/dL) Final Performing Location LABORATORY [facility] - [address] [place] [address]
--- OUTSIDE RECORDS SUMMARY | 2023-07-01 20:43 | External Medical Summary ---
Author Name Unknown Address Unknown Organization K01:LABORATORY [facility] [place] - [address] [place] [address] Laboratory Report Ordering Provider Test Date Status SOTO SABILLON 06/03/2023 06:17:00 Final Observation Date Value Abnormality Reference (Units ) Status BUN 06/03/2023 06:17:00 16 6-20 (mg/dL) Final Creatinine 06/03/2023 06:17:00 0.6 0.6-1.2 (mg/dL) Final Glomerular filtration rate/1.73 sq M.predicted [Volume Rate/Area] in Serum, Plasma or Blood by Creatinine-based formula (CKD-EPI) 06/03/2023 06:17:00 >90 >=60 (mL/min) Final eGFR is calculated based on the CKD-EPI 2020 equation SODIUM 06/03/2023 06:17:00 133 Below low normal 135 -146 (mmol/L) Final Potassium 06/03/2023 06:17:00 4.6 3.5-5.1 (m mol/L) Final Cl 06/03/2023 06:17:00 101 98-107 (mm ol/L) Final CO2 06/03/2023 06:17:00 28 22-32 (mmo l/L) Final Anion gap 06/03/2023 06:17:00 4 Below low normal 7-1 5 (mmol/L) Final Glucose 06/03/2023 06:17:00 271 Above high normal 70 -120 (mg/dL) Final Calcium 06/03/2023 06:17:00 7.9 Below low normal 8.4 -10.2 (mg/dL) Final Performing Location LABORATORY [facility] - [address] [place] [address]
--- OUTSIDE RECORDS SUMMARY | 2023-07-01 20:43 | External Medical Summary ---
Author Name Unknown Address Unknown Organization : Laboratory Report Ordering Provider Test Date Status BRITTANIONURSCLEM 06/01/2023 23:18:41 Final Observation Date Value Abnormality Reference (Units ) Status Glucose Point of Care 06/01/2023 23:18:41 262 Above high normal 70-120 (mg/dL) Final Performing Location
--- OUTSIDE RECORDS SUMMARY | 2023-07-01 20:43 | External Medical Summary ---
Author Name Unknown Address Unknown Organization : Laboratory Report Ordering Provider Test Date Status BRITTANIONURSAL 06/04/2023 00:01:27 Final Observation Date Value Abnormality Reference (Units ) Status Glucose Point of Care 06/04/2023 00:01:27 203 Above high normal 70-120 (mg/dL) Final Performing Location
--- OUTSIDE RECORDS SUMMARY | 2023-07-01 20:43 | External Medical Summary ---
Author Name Unknown Address Unknown Organization : Laboratory Report Ordering Provider Test Date Status BRITTANIONURSAL 06/02/2023 05:18:29 Final Observation Date Value Abnormality Reference (Units ) Status Glucose Point of Care 06/02/2023 05:18:29 182 Above high normal 70-120 (mg/dL) Final Performing Location
--- OUTSIDE RECORDS SUMMARY | 2023-07-01 20:43 | External Medical Summary ---
Author Name Unknown Address Unknown Organization [id number][facility] [address] [place] [address] Laboratory Report Ordering Provider Test Date Status SOTO SABILLON 06/01/2023 04:44:00 Final Observation Date Value Abnormality Reference (Units ) Status Magnesium 06/01/2023 04:44:00 2.0 1.5-2.6 (m g/dL) Final Performing Location [facility] - [address] [place] [address]
--- OUTSIDE RECORDS SUMMARY | 2023-07-01 20:43 | External Medical Summary ---
Author Name Unknown Address Unknown Organization [id number]:[facility] - [address] [place] [address] Laboratory Report Ordering Provider Test Date Status SOTO SABILLON 05/31/2023 05:01:00 Final Observation Date Value Abnormality Reference (Units ) Status Phosphate 05/31/2023 05:01:00 2.3 Below low normal 2.5 -4.8 (mg/dL) Final Performing Location [facility] - [address] [facility] [address]
--- OUTSIDE RECORDS SUMMARY | 2023-07-01 20:43 | External Medical Summary ---
Author Name Unknown Address Unknown Organization : Laboratory Report Ordering Provider Test Date Status GISELLA RAMON 05/30/2023 11:53:56 Final Observation Date Value Abnormality Reference (Units ) Status Glucose Point of Care 05/30/2023 11:53:56 146 Above high normal 70-120 (mg/dL) Final Performing Location
--- OUTSIDE RECORDS SUMMARY | 2023-07-01 20:43 | External Medical Summary ---
Author Name Unknown Address Unknown Organization [id number]:[facility] [address] [place] [address] Laboratory Report Ordering Provider Test Date Status SOTO SABILLON 06/02/2023 04:37:00 Final Observation Date Value Abnormality Reference (Units ) Status Magnesium 06/02/2023 04:37:00 1.9 1.5-2.6 (m g/dL) Final Performing Location [facility] - [address] [place] [address]
--- OUTSIDE RECORDS SUMMARY | 2023-07-01 20:43 | External Medical Summary ---
Author Name Unknown Address Unknown Organization [id number]:[facility] - [address] [place] [address] Laboratory Report Ordering Provider Test Date Status SOTO SABILLON 06/01/2023 04:44:00 Final Observation Date Value Abnormality Reference (Units ) Status Phosphate 06/01/2023 04:44:00 2.7 2.5-4.8 (m g/dL) Final Performing Location [facility] - [address] [place] [address]
--- OUTSIDE RECORDS SUMMARY | 2023-07-01 20:43 | External Medical Summary ---
Author Name Unknown Address Unknown Organization [id number]:[facility] [place] [address] [facility] [address] Laboratory Report Ordering Provider Test Date Status SOTO SABILLON 06/02/2023 04:37:00 Final Observation Date Value Abnormality Reference (Units ) Status WBC, Total 06/02/2023 04:37:00 7.44 4.00-10.80 (K/uL) Final RBC 06/02/2023 04:37:00 2.57 4.50-5.25 (M/uL) Final Hemoglobin 06/02/2023 04:37:00 8.3 Below low normal 14.0-16.8 (g/dL) Final HCT 06/02/2023 04:37:00 26.6 Below low normal 40.0-48.4 (%) Final MCV 06/02/2023 04:37:00 103.5 82.0-99.5 (fL) Final MCH 06/02/2023 04:37:00 32.3 27.0-34.0 (pg) Final MCHC 06/02/2023 04:37:00 31.2 32.0-36.0 (g/dL) Final RDW 06/02/2023 04:37:00 18.1 11.5-15.5 (%) Final Platelets 06/02/2023 04:37:00 159 140-400 (K/uL) Final MPV 06/02/2023 04:37:00 9.7 6.6-11.1 (fL) Final Nucleated erythrocytes/100 leukocytes [Ratio] in Blood by Automated count 06/02/2023 04:37:00 0 <=0 (/100 WBCs) Final Performing Location [facility] [place] [address] [facility] [address]
--- OUTSIDE RECORDS SUMMARY | 2023-07-01 20:43 | External Medical Summary ---
Author Name Unknown Address Unknown Organization : Laboratory Report Ordering Provider Test Date Status BRITTANIONURSAL 06/02/2023 17:42:37 Final Observation Date Value Abnormality Reference (Units ) Status Glucose Point of Care 06/02/2023 17:42:37 134 Above high normal 70-120 (mg/dL) Final Performing Location
--- OUTSIDE RECORDS SUMMARY | 2023-07-01 20:43 | External Medical Summary ---
Author Name Unknown Address Unknown Organization [id number]:[facility] [place] [address] [facility] [address] Laboratory Report Ordering Provider Test Date Status SOTO SABILLON 05/31/2023 05:01:00 Final Observation Date Value Abnormality Reference (Units ) Status WBC, Total 05/31/2023 05:01:00 7.14 4.00-10.80 (K/uL) Final RBC 05/31/2023 05:01:00 2.91 4.50-5.25 (M/uL) Final Hemoglobin 05/31/2023 05:01:00 9.4 Below low normal 14.0-16.8 (g/dL) Final HCT 05/31/2023 05:01:00 30.1 Below low normal 40.0-48.4 (%) Final MCV 05/31/2023 05:01:00 103.4 82.0-99.5 (fL) Final MCH 05/31/2023 05:01:00 32.3 27.0-34.0 (pg) Final MCHC 05/31/2023 05:01:00 31.2 32.0-36.0 (g/dL) Final RDW 05/31/2023 05:01:00 18.0 11.5-15.5 (%) Final Platelets 05/31/2023 05:01:00 160 140-400 (K/uL) Final MPV 05/31/2023 05:01:00 9.1 6.6-11.1 (fL) Final Nucleated erythrocytes/100 leukocytes [Ratio] in Blood by Automated count 05/31/2023 05:01:00 0 <=0 (/100 WBCs) Final Performing Location [facility] - [address] [facility] [address]
--- OUTSIDE RECORDS SUMMARY | 2023-07-01 20:44 | External Medical Summary ---
Author Name Unknown Address Unknown Organization : Laboratory Report Ordering Provider Test Date Status GISELLA RAMON 05/30/2023 00:07:52 Final Observation Date Value Abnormality Reference (Units ) Status Glucose Point of Care 05/30/2023 00:07:52 103 70-120 (mg/dL) Final Performing Location
--- OUTSIDE RECORDS SUMMARY | 2023-07-01 20:44 | External Medical Summary ---
Author Name Unknown Address Unknown Organization [id number]:LAB[facility]ATORY [facility] [place] - [address] [place] [address] Laboratory Report Ordering Provider Test Date Status SOTO SABILLON 05/28/2023 05:45:00 Final Observation Date Value Abnormality Reference (Units ) Status BUN 05/28/2023 05:45:00 18 6-20 (mg/dL) Final Creatinine 05/28/2023 05:45:00 0.6 0.6-1.2 (mg/dL) Final Glomerular filtration rate/1.73 sq M.predicted [Volume Rate/Area] in Serum, Plasma or Blood by Creatinine-based formula (CKD-EPI) 05/28/2023 05:45:00 >90 >=60 (mL/min) Final eGFR is calculated based on the CKD-EPI 2020 equation SODIUM 05/28/2023 05:45:00 138 135-146 (m mol/L) Final Potassium 05/28/2023 05:45:00 4.3 3.5-5.1 (m mol/L) Final Cl 05/28/2023 05:45:00 99 98-107 (mm ol/L) Final CO2 05/28/2023 05:45:00 30 22-32 (mmo l/L) Final Anion gap 05/28/2023 05:45:00 9 7-15 (mmol /L) Final Glucose 05/28/2023 05:45:00 150 Above high normal 70 -120 (mg/dL) Final Calcium 05/28/2023 05:45:00 8.5 8.4-10.2 ( mg/dL) Final Performing Location LAB[facility]ATORY [facility] [place] - [address] [place] [address]
--- OUTSIDE RECORDS SUMMARY | 2023-07-01 20:44 | External Medical Summary ---
Author Name Unknown Address Unknown Organization K01:[facility] - [address] [place] [address] Laboratory Report Ordering Provider Test Date Status HEATHER BLANCHARD 05/29/2023 04:32:00 Final Observation Date Value Abnormality Reference (Units ) Status Ferritin 05/29/2023 04:32:00 213 30-400 (ng /mL) Final Performing Location [facility] - [address] [place] [address]
--- OUTSIDE RECORDS SUMMARY | 2023-07-01 20:44 | External Medical Summary ---
Author Name Unknown Address Unknown Organization K01:LABORATORY [facility] [place] - [address] [place] [address] Laboratory Report Ordering Provider Test Date Status SOTO SABILLON 05/29/2023 04:32:00 Final Observation Date Value Abnormality Reference (Units ) Status BUN 05/29/2023 04:32:00 19 6-20 (mg/dL) Final Creatinine 05/29/2023 04:32:00 0.6 0.6-1.2 (mg/dL) Final Glomerular filtration rate/1.73 sq M.predicted [Volume Rate/Area] in Serum, Plasma or Blood by Creatinine-based formula (CKD-EPI) 05/29/2023 04:32:00 >90 >=60 (mL/min) Final eGFR is calculated based on the CKD-EPI 2020 equation SODIUM 05/29/2023 04:32:00 139 135-146 (m mol/L) Final Potassium 05/29/2023 04:32:00 3.8 3.5-5.1 (m mol/L) Final Cl 05/29/2023 04:32:00 102 98-107 (mm ol/L) Final CO2 05/29/2023 04:32:00 30 22-32 (mmo l/L) Final Anion gap 05/29/2023 04:32:00 7 7-15 (mmol /L) Final Glucose 05/29/2023 04:32:00 123 Above high normal 70 -120 (mg/dL) Final Calcium 05/29/2023 04:32:00 8.1 Below low normal 8.4 -10.2 (mg/dL) Final Performing Location LABORATORY [facility] [place] - [address] [place] [address]
--- OUTSIDE RECORDS SUMMARY | 2023-07-01 20:44 | External Medical Summary ---
Author Name Unknown Address Unknown Organization K01:LAB[facility]ATORY [facility] [place] - [address] [place] [address] Laboratory Report Ordering Provider Test Date Status HEATHER BLANCHARD 05/29/2023 04:32:00 Final Observation Date Value Abnormality Reference (Units ) Status Retic, % (auto) 05/29/2023 04:32:00 4.92 Above high normal 0.80-1.90 (%) Final Reticulocytes, Absolute 05/29/2023 04:32:00 125.5 Above high normal 31.3-100.1 (K/uL) Final Reticulocyte fraction, immature 05/29/2023 04:32:00 30.1 Above high normal 2.5-20.6 (%) Final Reticulocyte HGB 05/29/2023 04:32:00 34.4 29.7-37.4 (pg) Final Performing Location LABORATORY [facility] [place] - [address] [place] [address]
--- OUTSIDE RECORDS SUMMARY | 2023-07-01 20:44 | External Medical Summary ---
Author Name Unknown Address Unknown Organization : Laboratory Report Ordering Provider Test Date Status HEATHER BLANCHARD 05/29/2023 00:18:36 Final Observation Date Value Abnormality Reference (Units ) Status Glucose Point of Care 05/29/2023 00:18:36 174 Above high normal 70-120 (mg/dL) Final Performing Location
--- OUTSIDE RECORDS SUMMARY | 2023-07-01 20:44 | External Medical Summary ---
Author Name Unknown Address Unknown Organization K01:[facility] - [address] [place] [address] Laboratory Report Ordering Provider Test Date Status SOTO SABILLON 05/28/2023 05:45:00 Final Observation Date Value Abnormality Reference (Units ) Status Phosphate 05/28/2023 05:45:00 3.5 2.5-4.8 (m g/dL) Final Performing Location [facility] - [address] [place] [address]
--- OUTSIDE RECORDS SUMMARY | 2023-07-01 20:44 | External Medical Summary ---
Author Name Unknown Address Unknown Organization K01:[facility] - [address] [place] [address] Laboratory Report Ordering Provider Test Date Status SOTO SABILLON 05/29/2023 04:32:00 Final Observation Date Value Abnormality Reference (Units ) Status Phosphate 05/29/2023 04:32:00 3.1 2.5-4.8 (m g/dL) Final Performing Location [facility] - [address] [place] [address]
--- OUTSIDE RECORDS SUMMARY | 2023-07-01 20:44 | External Medical Summary ---
Author Name Unknown Address Unknown Organization K01:[facility] - [address] [place] [address] Laboratory Report Ordering Provider Test Date Status SOTO SABILLON 05/30/2023 04:47:00 Final Observation Date Value Abnormality Reference (Units ) Status Magnesium 05/30/2023 04:47:00 2.0 1.5-2.6 (m g/dL) Final Performing Location [facility] - [address] [place] [address]
--- OUTSIDE RECORDS SUMMARY | 2023-07-01 20:44 | External Medical Summary ---
Author Name Unknown Address Unknown Organization : Laboratory Report Ordering Provider Test Date Status HEATHER BLANCHARD 05/29/2023 17:56:53 Final Observation Date Value Abnormality Reference (Units ) Status Glucose Point of Care 05/29/2023 17:56:53 97 70-120 (mg/dL) Final Performing Location
--- OUTSIDE RECORDS SUMMARY | 2023-07-01 20:44 | External Medical Summary ---
Author Name Unknown Address Unknown Organization K01:[facility] - [address] [place] [address] Laboratory Report Ordering Provider Test Date Status SOTO SABILLON 05/30/2023 04:47:00 Final Observation Date Value Abnormality Reference (Units ) Status Phosphate 05/30/2023 04:47:00 2.4 Below low normal 2.5 -4.8 (mg/dL) Final Performing Location [facility] - [address] [place] [address]
--- OUTSIDE RECORDS SUMMARY | 2023-07-01 20:44 | External Medical Summary ---
Author Name Unknown Address Unknown Organization K01:LABORATORY [facility] - [address] [facility] [address] Laboratory Report Ordering Provider Test Date Status SOTO SABILLON 05/30/2023 04:47:00 Final Observation Date Value Abnormality Reference (Units ) Status WBC, Total 05/30/2023 04:47:00 7.05 4.00-10.80 (K/uL) Final RBC 05/30/2023 04:47:00 2.64 4.50-5.25 (M/uL) Final Hemoglobin 05/30/2023 04:47:00 8.5 Below low normal 14.0-16.8 (g/dL) Final HCT 05/30/2023 04:47:00 27.8 Below low normal 40.0-48.4 (%) Final MCV 05/30/2023 04:47:00 105.3 82.0-99.5 (fL) Final MCH 05/30/2023 04:47:00 32.2 27.0-34.0 (pg) Final MCHC 05/30/2023 04:47:00 30.6 32.0-36.0 (g/dL) Final RDW 05/30/2023 04:47:00 18.3 11.5-15.5 (%) Final Platelets 05/30/2023 04:47:00 154 140-400 (K/uL) Final MPV 05/30/2023 04:47:00 9.0 6.6-11.1 (fL) Final Nucleated erythrocytes/100 leukocytes [Ratio] in Blood by Automated count 05/30/2023 04:47:00 0 <=0 (/100 WBCs) Final Performing Location LABORATORY [facility] - [address] [facility] [address]
--- OUTSIDE RECORDS SUMMARY | 2023-07-01 20:44 | External Medical Summary ---
Author Name Unknown Address Unknown Organization K01:LABORATORY [facility] [place] - [address] [facility] [address] Laboratory Report Ordering Provider Test Date Status SOTO SABILLON 05/28/2023 05:45:00 Final Observation Date Value Abnormality Reference (Units ) Status WBC, Total 05/28/2023 05:45:00 10.77 4.00-10.80 (K/uL) Final RBC 05/28/2023 05:45:00 2.79 4.50-5.25 (M/uL) Final Hemoglobin 05/28/2023 05:45:00 9.1 Below low normal 14.0-16.8 (g/dL) Final HCT 05/28/2023 05:45:00 28.9 Below low normal 40.0-48.4 (%) Final MCV 05/28/2023 05:45:00 103.6 82.0-99.5 (fL) Final MCH 05/28/2023 05:45:00 32.6 27.0-34.0 (pg) Final MCHC 05/28/2023 05:45:00 31.5 32.0-36.0 (g/dL) Final RDW 05/28/2023 05:45:00 17.7 11.5-15.5 (%) Final Platelets 05/28/2023 05:45:00 195 140-400 (K/uL) Final MPV 05/28/2023 05:45:00 9.3 6.6-11.1 (fL) Final Nucleated erythrocytes/100 leukocytes [Ratio] in Blood by Automated count 05/28/2023 05:45:00 0 <=0 (/100 WBCs) Final Performing Location LABORATORY [facility] [place] - [address] [facility] [address]
--- OUTSIDE RECORDS SUMMARY | 2023-07-01 20:44 | External Medical Summary ---
Author Name Unknown Address Unknown Organization K01:[facility] - [address] [place] [address] Laboratory Report Ordering Provider Test Date Status SOTO SABILLON 05/29/2023 04:32:00 Final Observation Date Value Abnormality Reference (Units ) Status Magnesium 05/29/2023 04:32:00 2.1 1.5-2.6 (m g/dL) Final Performing Location [facility] - [address] [place] [address]
--- OUTSIDE RECORDS SUMMARY | 2023-07-01 20:44 | External Medical Summary | Summary of Care ---
Author Name Unknown Organization [facility] Address [address] [place] [address] Phone [phone] Care Team Providers Care Manager Simulation Name Role Phone Robel Joe Trujillo DO Primary Care Provider [phone] Reason for Visit * Auth/Cert Specialty Diagnoses / Procedures Referred By Aguilar t Referred To Contact Referral ID Status Reason Start Date Expiration Date Visits Re quested Visits Authorized [id number] Encounter Details Date Type Department Care Team (Latest Contact Info) Description 05/27/2023 7:34 AM EST - 05/27/2023 11:59 PM EST Hospital Encounter Cardiac Studies [facility] [address] [place] [address] Discharge Disposition: Home - Self Care Allergies Active Allergy Reactions Criticality Noted Date Comments Sulfa Antibiotics Rash 11/02/2004 Rash documented as of this encounter (statuses as of 05/28/2023) Medications Medication Sig Dispensed Refills Start Date End Date Status Aspirin 81 MG Tablet Take 1 Tablet [...] Suspended Tamsulosin HCl 0.4 MG Oral Capsule (Flomax)Indications :takes at bedtime Take 1 Capsule by mouth in the morning. 0 Suspended Calcium Carbonate 600 MG Oral Tablet Take 1 Tablet by mouth 2 times a day with morning and evening meals. 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 No echo was done. documented in this encounter Plan of Treatment Pending Results Name Type Priority Associated Diagnoses Date /Time ECHO, COMPLETE (2D), TRANS-THORACIC Echocardiology Routine Status post cardiac surgery 05/27/2023 10:30 AM EST Scheduled Procedures Name Priority Associated Diagnoses Date/Ti me TRACHEOSTOMY PLANNED Pain 05/28/2023 12:11 PM EST LARYNGOSCOPY DIRECT DILATION INITIAL Pain 05/28/2023 12:11 PM EST Health Maintenance Due Date Last Done Comments Depression Screening 1954 Albumin/Creatinine Ratio 1960 Diabetic Eye Exam 1960 Diabetic Foot Exam 1960 DTaP,Tdap,and Td Vaccines (1 - Tdap) 1961 Zoster Vaccines (1 of 2) 1992 Hepatitis B (1 of 3 - Risk 3-dose series) 2002 DXA Scan 09/23/2021 09/24/2019, 09/24/2019 TSH 11/07/2021 11/07/2020 COVID-19 Vaccine ( season) 2023 02/13/2022 HbA1c 11/25/2023 05/27/2023, 04/19, 04/25/2023, Additional history exists GFR 05/28/2024 05/28/2023, 01/2024, 05/26/2023, Additional history exists VITAMIN D LEVEL ONCE IN A LIFETIME-USE SMARTSET# [id number] Completed 07/23/2019 Pneumococcal Vaccine: 65+ Years Completed 11/13/2021, 04/13/2019, 04/05/2017 Influenza Vaccine (FLU shot) Completed 04/2023, 02/13/2022, 05/03/2021, Additional history exists GARDASIL-HPV IMMUNIZATION SERIES Aged Out No longer eligible based on patient's age to complete this topic MENINGOCOCCAL (MENACTRA/MENVEO) Aged Out No longer eligible based on patient's age to complete this topic documented as of this encounter Medical Devices Implanted Type Area Facer Operator Device Identifier Shelf Expiration Date Model / Serial / Lot Lens Intraoc 20.5 - [id number] - [id number] Implanted:Qty: 1 on 06/27/2020 by Mason Hassan MD at OR [facility] Right: Eye [employer] 10/16/2024 [id number] / [id number] / [id number] Lens Intraoc 21.0 - [id number] - [id number] Implanted:Qty: 1 on 07/11/2020 by Mason Hassan MD at OR [facility] Left: Eye [employer] 02/15/2025 [id number] / [id number] / [id number] documented as of this encounter Advance Directives Latest Code Status on File Code Status Date Activated Date Inactivated Comments Limited Code 05/26/2023 4:21 PM This order reflects the patients wishes and were consensually agreed upon. Question Answer Comments Discussion of Advance Directives occurred with: Patient Does the patient have a Living Will? No Does the patient have Health Care Power of Cable Technician? No Bag Valve Device? Yes Intubation? Yes Cardiac Compressions? No Defibrillation? No Care Teams Manager Simulation Relationship Specialty Start Date End Date Robel, Joeariana Trujillo DO [address] [address] [place] [address] PCP - General Family Medicine 10/22/19 documented as of this encounter
--- OUTSIDE RECORDS SUMMARY | 2023-07-01 20:44 | External Medical Summary ---
Author Name Unknown Address Unknown Organization : Laboratory Report Ordering Provider Test Date Status GISELLA RAMON 05/27/2023 18:19:54 Final Observation Date Value Abnormality Reference (Units ) Status Glucose Point of Care 05/27/2023 18:19:54 153 Above high normal 70-120 (mg/dL) Final Performing Location
--- OUTSIDE RECORDS SUMMARY | 2023-07-01 20:44 | External Medical Summary ---
Author Name Unknown Address Unknown Organization K01:[facility] [place] [address] [place] [address] Laboratory Report Ordering Provider Test Date Status HEATHER BLANCHARD 05/29/2023 04:32:00 Final Observation Date Value Abnormality Reference (Units ) Status Iron 05/29/2023 04:32:00 34 Below low normal 45-176 (ug/dL) Final Iron-binding capacity 05/29/2023 04:32:00 132 Below low normal 250-425 (ug/dL) Final Transferrin Sat % 05/29/2023 04:32:00 26 15-55 (%) Final Performing Location LABORATORY [facility] - [address] [place] [address]
--- OUTSIDE RECORDS SUMMARY | 2023-07-01 20:44 | External Medical Summary ---
Author Name Unknown Address Unknown Organization : Laboratory Report Ordering Provider Test Date Status GISELLA RAMON 05/28/2023 05:45:09 Final Observation Date Value Abnormality Reference (Units ) Status Glucose Point of Care 05/28/2023 05:45:09 134 Above high normal 70-120 (mg/dL) Final Performing Location
--- OUTSIDE RECORDS SUMMARY | 2023-07-01 20:44 | External Medical Summary ---
Author Name Unknown Address Unknown Organization : Laboratory Report Ordering Provider Test Date Status GISELLA RAMON 05/28/2023 07:55:41 Final Observation Date Value Abnormality Reference (Units ) Status Glucose Point of Care 05/28/2023 07:55:41 176 Above high normal 70-120 (mg/dL) Final Performing Location
--- OUTSIDE RECORDS SUMMARY | 2023-07-01 20:44 | External Medical Summary ---
Author Name Unknown Address Unknown Organization : Laboratory Report Ordering Provider Test Date Status GISELLA RAMON 05/29/2023 05:48:14 Final Observation Date Value Abnormality Reference (Units ) Status Glucose Point of Care 05/29/2023 05:48:14 97 70-120 (mg/dL) Final Performing Location
--- OUTSIDE RECORDS SUMMARY | 2023-07-01 20:44 | External Medical Summary ---
Author Name Unknown Address Unknown Organization : Laboratory Report Ordering Provider Test Date Status GISELLA RAMON 05/30/2023 05:38:19 Final Observation Date Value Abnormality Reference (Units ) Status Glucose Point of Care 05/30/2023 05:38:19 113 70-120 (mg/dL) Final Performing Location
--- OUTSIDE RECORDS SUMMARY | 2023-07-01 20:44 | External Medical Summary ---
Author Name Unknown Address Unknown Organization : Laboratory Report Ordering Provider Test Date Status GISELLA RAMON 05/29/2023 12:05:54 Final Observation Date Value Abnormality Reference (Units ) Status Glucose Point of Care 05/29/2023 12:05:54 104 70-120 (mg/dL) Final Performing Location
--- OUTSIDE RECORDS SUMMARY | 2023-07-01 20:44 | External Medical Summary ---
Author Name Unknown Address Unknown Organization : Laboratory Report Ordering Provider Test Date Status HEATHER BLANCHARD 05/29/2023 16:08:00 Final Observation Date Value Abnormality Reference (Units ) Status Mycobacterium tuberculosis stimulated gamma interferon [Interpretation] in Blood Qualitative 05/29/2023 16:08:00 NEGATIVE NEGATIVE Final Negative test result. M. tub erculosis complex
infection unlikely. Gamma interferon background [Units/volume] in Blood by Immunoassay 05/29/2023 16:08:00 0.02 (IU/mL) Final Mitogen stimulated gamma int erferon [Units/volume] corrected for background in Blood 05/29/2023 16:08:00 5.80 (IU/mL) Final Mycobacterium tuberculosis s timulated gamma interferon release by CD4+ T-cells [Units/volume] corrected for background in Blood 05/29/2023 16:08:00 0.00 (IU/mL) Final Mycobacterium tuberculosis s timulated gamma interferon release by CD4+ and CD8+ T-cells [Units/volume] corrected for background in Blood 05/29/2023 16:08:00 <0.00 (IU/mL) Final The Nil tube value reflects the background [...] T-lymphocytes.
For additional information, please refer to
[email or web address]
(This link is being provided for information/
educational purposes only.)

Test Performed at:
[facility]
[address]
[place] [address]
Chun Mckinley M.D., Ph.D.,Director of Laboratories Performing Location
--- OUTSIDE RECORDS SUMMARY | 2023-07-01 20:44 | External Medical Summary ---
Author Name Unknown Address Unknown Organization : Laboratory Report Ordering Provider Test Date Status GISELLA RAMON 05/28/2023 17:15:59 Final Observation Date Value Abnormality Reference (Units ) Status Glucose Point of Care 05/28/2023 17:15:59 142 Above high normal 70-120 (mg/dL) Final Performing Location
--- OUTSIDE RECORDS SUMMARY | 2023-07-01 20:44 | External Medical Summary ---
Author Name Unknown Address Unknown Organization : Laboratory Report Ordering Provider Test Date Status GISELAL RAMON 05/27/2023 23:54:49 Final Observation Date Value Abnormality Reference (Units ) Status Glucose Point of Care 05/27/2023 23:54:49 160 Above high normal 70-120 (mg/dL) Final Performing Location
--- OUTSIDE RECORDS SUMMARY | 2023-07-01 20:44 | External Medical Summary ---
Author Name Unknown Address Unknown Organization [id number]:[facility] - [address] [place] [address] Laboratory Report Ordering Provider Test Date Status SOTO SABILLON 05/28/2023 05:45:00 Final Observation Date Value Abnormality Reference (Units ) Status Magnesium 05/28/2023 05:45:00 2.1 1.5-2.6 (m g/dL) Final Performing Location [facility] - [address] [place] [address]
--- OUTSIDE RECORDS SUMMARY | 2023-07-01 20:44 | External Medical Summary | Summary of Care ---
Author Name Unknown Organization [facility] Address [address] [place] [address] Phone [phone] Care Team Providers Care Skin Diving Teacher Name Role Phone RobelJoe Ronnie NORMAN Primary Care Provider [phone] Reason for Visit * Reason Onset Date Comments Referral 05/26/2023 Encounter Details Date Type Department Care Team (Late st Contact Info) Description 05/26/2023 Telephone Otolaryngology/Head & Neck/Facial Plastic Surgery [address] [place], [place] [id number] Abimael De La Rosa DO [address] [place], [place] [phone] Referral Allergies Active Allergy Reactions Criticality Noted Date Comments Sulfa Antibiotics Rash 11/02/2004 Rash documented as of this encounter (statuses as of 05/27/2023) Medications Medication Sig Dispensed Refills Start Date End Date Status Aspirin 81 MG Tablet Take 1 Tablet by mouth in the morning. 0 Suspended MetFORMIN (GLUCOPHAGE) 1000 MG Tablet Take 1 Tablet by mouth 2 times a day with morning and evening meals. 0 Suspended rosuvastatin (CRESTOR) 10 MG Tablet Take 5 mg by mouth daily. 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 Please call to reschedule. * Telephone Encounter - Chelsi Villareal RN - 05/26/2023 11:54 AM EST Return call to [facility] to attempt to schedule a sooner appointment tomorrow 05/27/22 at 8 am in [place]. Spoke with RN blood donor recruiter supervisor. RN is concerned with patient's breathing with audible stridor from his room into the hallway. Facility unable to transport patient to outpatient appointment [facility] today or tomorrow morning. RN plans to have patient transported to [facility]. Notified elevator constructor electric providers of likely transfer to [facility] for ENT consultation. Chelsi Villareal PhD RN applications analyst Otolaryngology * Telephone Encounter - Chelsi Villareal RN - 05/26/2023 10:46 AM EST Reviewed faxed records and discussed with Dr. De La Rosa. Called [facility] to schedule patient. Offered appointment this afternoon; facility unable to provide transportation today. Facility accepted appointment Friday05/27/23 at [address] De La Rosa in [place]. Directions to clinic provided. Informed staff if patient's breathing or airway concerns worsened prior to appointment to call 911 and have patient transported to the ED. Staff verbalized understanding. Chelsi Villareal PhD RN applications analyst Otolaryngology * Telephone Encounter - Chelsi Villareal RN - 05/26/2023 10:45 AM EST VM received from Vivi at Dr. San's office with new referral with Dr. De La Rosa. Per Vivi medicalrecords being faxed to office. Chelsi Villareal PhD RN applications analyst Otolaryngology documented in this encounter Plan of Treatment Scheduled Procedures Name Priority Associated Diagnoses Date/Ti me TRACHEOSTOMY PLANNED Pain LARYNGOSCOPY DIRECT DILATION INITIAL Pain Health Maintenance Due Date Last Done Comments Depression Screening 1954 DTaP,Tdap,and Td Vaccines (1 - Tdap) 1961 Zoster Vaccines (1 of 2) 1992 TSH 11/07/2021 11/07/2020 COVID-19 Vaccine (2 - 2022- season) 2023 02/13/2022 Pneumococcal Vaccine: 65+ Years Completed 11/13/2021, 04/13/2019, 04/05/2017 Influenza Vaccine (FLU shot) Completed 04/2023, 02/13/2022, 05/03/2021, Additional history exists GARDASIL-HPV IMMUNIZATION SERIES Aged Out No longer eligible based on patient's age to complete this topic Hepatitis B Aged Out No longer eligi ble based on patient's age to complete this topic MENINGOCOCCAL (MENACTRA/MENVEO) Aged Out No longer eligible based on patient's age to complete this topic documented as of this encounter Medical Devices Implanted Type Area Fire Production Operator Device Identifier Shelf Expiration Date Model / Serial / Lot Lens Intraoc 20.5 - [id number] - [id number] Implanted:Qty: 1 on 06/27/2020 by Mason Hassan MD at OR [facility] Right: Eye [employer] 10/16/2024 [id number] / [id number] / [id number] Lens Intraoc 21.0 - [id number] - [id number] Implanted:Qty: 1 on 07/11/2020 by Mason Hassan MD at OR [facility] Left: Eye [employer]CH [employer]OM[employer] 02/15/2025 [id number] / [id number] / [id number] documented as of this encounter Additional Health Concerns Infection Onset Date Last Indicated Resolved Time Respiratory Rule-Out 05/26/2023 05/26/2023 024 4:10 PM EST COVID-19 Rule-Out 05/26/2023 05/26/2023 05/26/2023 4:10 PM EST documented as of this encounter Advance Directives Latest Code Status on File Code Status Date Activated Date Inactivated Comments Limited Code 05/26/2023 4:21 PM This order reflects the patients wishes and were consensually agreed upon. Question Answer Comments Discussion of Advance Directives occurred with: Patient Does the patient have a Living Will? No Does the patient have Health Care Power of Collar Worker? No Bag Valve Device? Yes Intubation? Yes Cardiac Compressions? No Defibrillation? No Care Teams Skin Diving Teacher Relationship Specialty Start Date End Date Joe Huston DO [address] [facility] [place] [address] BRITTANY Gagnon [address] PCP - General Family Medicine 10/22/19 documented as of this encounter
--- OUTSIDE RECORDS SUMMARY | 2023-07-01 20:44 | External Medical Summary ---
Author Name Unknown Address Unknown Organization K01:[facility]ATORY [facility] - [address] [facility] [address] Laboratory Report Ordering Provider Test Date Status SOTO SABILLON 05/29/2023 04:32:00 Final Observation Date Value Abnormality Reference (Units ) Status WBC, Total 05/29/2023 04:32:00 12.06 Above high normal 4.00-10.80 (K/uL) Final RBC 05/29/2023 04:32:00 2.57 4.50-5.25 (M/uL) Final Hemoglobin 05/29/2023 04:32:00 8.3 Below low normal 14.0-16.8 (g/dL) Final HCT 05/29/2023 04:32:00 26.8 Below low normal 40.0-48.4 (%) Final MCV 05/29/2023 04:32:00 104.3 82.0-99.5 (fL) Final MCH 05/29/2023 04:32:00 32.3 27.0-34.0 (pg) Final MCHC 05/29/2023 04:32:00 31.0 32.0-36.0 (g/dL) Final RDW 05/29/2023 04:32:00 18.1 11.5-15.5 (%) Final Platelets 05/29/2023 04:32:00 160 140-400 (K/uL) Final MPV 05/29/2023 04:32:00 9.1 6.6-11.1 (fL) Final Nucleated erythrocytes/100 leukocytes [Ratio] in Blood by Automated count 05/29/2023 04:32:00 0 <=0 (/100 WBCs) Final Performing Location [facility] [place] [address] [facility] [address]
--- OUTSIDE RECORDS SUMMARY | 2023-07-01 20:45 | External Medical Summary ---
Author Name Unknown Address Unknown Organization [id number]:[facility]ATORY [facility] - [address] [facility] [address] Laboratory Report Ordering Provider Test Date Status SOTO SABILLON 05/26/2023 17:31:09 Final Observation Date Value Abnormality Reference (Units) Status Color of Urine by Auto 05/26/2023 17:31:09 Light Yellow Colorless, Light Yellow, Yellow, Dark Yellow Final Clarity, Urine 05/26/2023 17:31:09 Clear Clear Final Glucose [Mass/volume] in Urine by Automated test strip 05/26/2023 17:31:09 Negative Negative (mg/dL) Final Bilirubin.total [Presence] in Urine by Automated test strip 05/26/2023 17:31:09 Negative Negative Final Ketones [Mass/volume] in Urine by Automated test strip 05/26/2023 17:31:09 Negative Negative (mg/dL) Final Specific gravity, Urine 05/26/2023 17:31:09 1.044 Above high normal 1.003-1.030 Final Hemoglobin [Presence] in Urine by Automated test strip 05/26/2023 17:31:09 Small Abnormal Negative Final pH, Urine 05/26/2023 17:31:09 8.0 Above high normal 5.0-7.5 (Units) Final Protein [Mass/volume] in Urine by Automated test strip 05/26/2023 17:31:09 Negative Negative (mg/dL) Final Urobilinogen [Mass/volume] in Urine by Automated test strip 05/26/2023 17:31:09 Normal Normal (mg/dL) Final Nitrite [Presence] in Urine by Automated test strip 05/26/2023 17:31:09 Negative Negative Final Leukocyte esterase [Presence] in Urine by Automated test strip 05/26/2023 17:31:09 Negative Negative Final RBC, Urine 05/26/2023 17:31:09 30-49 Abnormal 0-2 (/HPF) Final WBC, Urine 05/26/2023 17:31:09 3-5 Abnormal 0-2 (/HPF) Final Bacteria [#/area] in Urine sediment by Microscopy high power field 05/26/2023 17:31:09 0-25 0-25 (/HPF) Final Performing Location [facility] - [address] [facility] [address]
--- OUTSIDE RECORDS SUMMARY | 2023-07-01 20:45 | External Medical Summary ---
Author Name Unknown Address Unknown Organization K01:[facility] - [address] [place] [address] Laboratory Report Ordering Provider Test Date Status RITTER ANTONI 05/26/2023 15:26:00 Final Observation Date Value Abnormality Reference (Units ) Status Bacteria identified in Specimen by Culture 05/26/2023 15:26:00 No growth Final Test: Culture, Blood
Chago durham Source: Blood, Venous
Specimen Type: Blood
Specimen Date: 05/26/2023 3:26 PM
Result Date: 05/31/2023 5:01 PM
Result Status: Final result
Resulting Lab: LAB[facility]ATORY [facility]
[address]
[place] [address]

CULTURE

No growth

null Performing Location [facility] - [address] [place] [address]
--- OUTSIDE RECORDS SUMMARY | 2023-07-01 20:45 | External Medical Summary ---
Author Name Unknown Address Unknown Organization : Laboratory Report Ordering Provider Test Date Status GISELLA RAMON 05/26/2023 23:50:24 Final Observation Date Value Abnormality Reference (Units ) Status Glucose Point of Care 05/26/2023 23:50:24 204 Above high normal 70-120 (mg/dL) Final Performing Location
--- OUTSIDE RECORDS SUMMARY | 2023-07-01 20:45 | External Medical Summary ---
Author Name Unknown Address Unknown Organization : Laboratory Report Ordering Provider Test Date Status GISELLA RAMON 05/27/2023 07:33:10 Final Observation Date Value Abnormality Reference (Units ) Status Glucose Point of Care 05/27/2023 07:33:10 193 Above high normal 70-120 (mg/dL) Final Performing Location
--- OUTSIDE RECORDS SUMMARY | 2023-07-01 20:45 | External Medical Summary ---
Author Name Unknown Address Unknown Organization K01:[facility] - [address] [place] [address] Laboratory Report Ordering Provider Test Date Status SOTO SABILLON 05/27/2023 05:25:00 Final Observation Date Value Abnormality Reference (Units ) Status Magnesium 05/27/2023 05:25:00 2.0 1.5-2.6 (m g/dL) Final Performing Location [facility] - [address] [place] [address]
--- OUTSIDE RECORDS SUMMARY | 2023-07-01 20:45 | External Medical Summary | Summary of Care ---
Author Name Unknown Organization [facility] Address [address] [place] [address] Phone [phone] Care Team Providers Care Studio Model Name Role Phone Robel Joe Ronnie NORMAN Primary Care Provider [phone] Reason for Visit * Reason Onset Date Comments Referral 05/26/2023 Encounter Details Date Type Department Care Team (Late st Contact Info) Description 05/26/2023 Telephone Otolaryngology/Head & Neck/Facial Plastic Surgery [address] [place] [address] Abimael De La Rosa DO [address] [place], [place] [phone] Referral Allergies Active Allergy Reactions Criticality Noted Date Comments Sulfa Antibiotics Rash 11/02/2004 Rash documented as of this encounter (statuses as of 05/26/2023) Medications Medication Sig Dispensed Refills Start Date End Date Status Aspirin 81 MG Tablet Take 81 mg by mouth daily. 0 Active MetFORMIN (GLUCOPHAGE) 1000 MG Tablet Take 1,000 mg by mouth 2 times a day with morning and evening meals. 0 Active rosuvastatin (CRESTOR) 10 MG Tablet Take 5 mg by mouth daily. 0 Active levothyroxine (LEVOXYL) 75 MCG Tablet Take 75 mcg by mouth daily first thing in the morning. (at least 30 min prior to breakfast or other meds) 0 Active amoxicillin (AMOXIL) 500 MG Capsule Take 2,000 mg by mouth as needed (takes prior to dental visits). 0 Active pantoprazole (PROTONIX) 40 MG TBEC Take 40 mg by mouth daily. 0 Active ferrous sulfate (FEOSOL) 325 (65 FE) MG Tablet Take 325 mg by mouth daily with breakfast. 0 Active Tamsulosin HCl 0.4 MG Oral Capsule (Flomax)Indications:t akes at bedtime Take 0.4 mg by mouth daily. Indications: takes at bedtime 0 Active Calcium Carbonate 600 MG Oral Tablet Take 600 mg by mouth 2 times a day with morning and evening meals. 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 Spoke with RN switch operators supervisor. RN is concerned with patient's breathing with audible stridor from his room into the hallway. Facility unable to transport patient to outpatient appointment [facility] today or tomorrow morning. RN plans to have patient transported to [facility]. Notified applications engineering manager providers of likely transfer to [facility] for ENT consultation. Chelsi Villareal PhD RN inventory technician Otolaryngology * Telephone Encounter - Chelsi Villareal RN - 05/26/2023 10:46 AM EST Reviewed faxed records and discussed with Dr. De La Rosa. Called [facility] to schedule patient. Offered appointment this afternoon; facility unable to provide transportation today. Facility accepted appointment Friday05/27/23 at [address] De La Rosa in [place]. Directions to clinic provided. Informed staff if patient's breathing or airway concerns worsened prior to appointment to call 911 and have patient transported to the ED. Staff verbalized understanding. Chelsi Villareal PhD RN inventory technician Otolaryngology * Telephone Encounter - Chelsi Villareal RN - 05/26/2023 10:45 AM EST VM received from Vivi at Dr. San's office with new referral with Dr. De La Rosa. Per Vivi medicalrecords being faxed to office. Chelsi Villareal PhD RN inventory technician Otolaryngology documented in this encounter Plan of Treatment Upcoming Encounters Date Type Department Care Team (Late st Contact Info) Description 05/28/2023 9:00 AM EST Office Visit Otolaryngology/Head & Neck/Facial Plastic Surgery [address] [place] [address] Abimael De La Rosa, [address] [place] [address] Health Maintenance Due Date Last Done Comments COVID-19 Vaccine (#1) 03/09/1941 Depression Screening 1952 DTaP,Tdap,and Td Vaccines (1 - Tdap) 1961 Zoster Vaccines (1 of 2) 1992 TSH 11/07/2021 11/07/2020 Pneumococcal Vaccine: 65+ Years Completed 11/13/2021, 04/13/2019, [...] this encounter Medical Devices Implanted Type Area Image Editor Device Identifier Shelf Expiration Date Model / Serial / Lot Lens Intraoc 20.5 - [id number] - [id number] Implanted:Qty: 1 on 06/27/2020 by Mason Hassan MD at OR [facility] Right: Eye [employer] 10/16/2024 [id number] / [id number] / [id number] Lens Intraoc 21.0 - [id number] - [id number] Implanted:Qty: 1 on 07/11/2020 by Mason Hassan MD at OR [facility] Left: Eye [employer]OMB 02/15/2025 [id number] / [id number] / [id number] documented as of this encounter Care Teams Studio Model Relationship Specialty Start Date End Date Joe Huston DO [address] [place] [address] BRITTANY Gagnon [address] PCP - General Family Medicine 10/22/19 documented as of this encounter
--- OUTSIDE RECORDS SUMMARY | 2023-07-01 20:45 | External Medical Summary ---
Author Name Unknown Address Unknown Organization K01:[facility]ORY [facility] - [address] [place] [address] Laboratory Report Ordering Provider Test Date Status SOTO SABILLON 05/27/2023 05:25:00 Final Observation Date Value Abnormality Reference (Units ) Status BUN 05/27/2023 05:25:00 19 6-20 (mg/dL) Final Creatinine 05/27/2023 05:25:00 0.6 0.6-1.2 (mg/dL) Final Glomerular filtration rate/1.73 sq M.predicted [Volume Rate/Area] in Serum, Plasma or Blood by Creatinine-based formula (CKD-EPI) 05/27/2023 05:25:00 >90 >=60 (mL/min) Final eGFR is calculated based on the CKD-EPI 2020 equation SODIUM 05/27/2023 05:25:00 137 135-146 (m mol/L) Final Potassium 05/27/2023 05:25:00 4.8 3.5-5.1 (m mol/L) Final Cl 05/27/2023 05:25:00 98 98-107 (mm ol/L) Final CO2 05/27/2023 05:25:00 30 22-32 (mmo l/L) Final Anion gap 05/27/2023 05:25:00 9 7-15 (mmol /L) Final Glucose 05/27/2023 05:25:00 204 Above high normal 70 -120 (mg/dL) Final Calcium 05/27/2023 05:25:00 9.0 8.4-10.2 ( mg/dL) Final Performing Location [facility]ORY [facility] - [address] [place] [address]
--- OUTSIDE RECORDS SUMMARY | 2023-07-01 20:45 | External Medical Summary ---
Author Name Unknown Address Unknown Organization K01:LABORATORY [facility] - [address] [facility] [address] Laboratory Report Ordering Provider Test Date Status JOSE J HINOJOSA 05/26/2023 13:59:00 Final Observation Date Value Abnormality Reference (Units ) Status BUN 05/26/2023 13:59:00 22 Above high normal 6-20 (mg/dL) Final Creatinine 05/26/2023 13:59:00 0.6 0.6-1.2 (mg/dL) Final Glomerular filtration rate/1.73 sq M.predicted [Volume Rate/Area] in Serum, Plasma or Blood by Creatinine-based formula (CKD-EPI) 05/26/2023 13:59:00 >90 >=60 (mL/min) Final eGFR is calculated based on the CKD-EPI 2020 equation SODIUM 05/26/2023 13:59:00 133 Below low normal 135 -146 (mmol/L) Final Potassium 05/26/2023 13:59:00 4.7 3.5-5.1 (m mol/L) Final Cl 05/26/2023 13:59:00 94 Below low normal 98- 107 (mmol/L) Final CO2 05/26/2023 13:59:00 34 Above high normal 22 -32 (mmol/L) Final Anion gap 05/26/2023 13:59:00 5 Below low normal 7-1 5 (mmol/L) Final Glucose 05/26/2023 13:59:00 201 Above high normal 70 -120 (mg/dL) Final Calcium 05/26/2023 13:59:00 9.2 8.4-10.2 ( mg/dL) Final Performing Location LABORATORY [facility] - [address] [place] [address]
--- OUTSIDE RECORDS SUMMARY | 2023-07-01 20:45 | External Medical Summary ---
Author Name Unknown Address Unknown Organization K01:LABORATORY [facility] - [address] [address] Laboratory Report Ordering Provider Test Date Status JOSE J HINOJOSA 05/26/2023 13:59:00 Final Observation Date Value Abnormality Reference (Units ) Status Body temperature 05/26/2023 13:59:00 37.0 (C) Final pH of Venous blood 05/26/2023 13:59:00 7.378 7.320-7.430 (units) Final Carbon dioxide [Partial pressure] in Venous blood 05/26/2023 13:59:00 60.4 Above high normal 40.0-60.0 (mmHg) Final Oxygen [Partial pressure] in Venous blood 05/26/2023 13:59:00 20.8 Below low normal 25.0-50.0 (mmHg) Final Base excess, Capillary 05/26/2023 13:59:00 8.5 Above high normal -2.0-2.0 (mmol/L) Final Hemoglobin [Mass/volume] in Blood by Oximetry 05/26/2023 13:59:00 10.0 Below low normal 14.0-16.8 (g/dL) Final Oxyhemoglobin, Venous (FO2HB) 05/26/2023 13:59:00 24.8 Below low normal 40.0-85.0 (% total Hgb) Final Carboxyhemoglobin 05/26/2023 13:59:00 1.2 <=1.5 (% total Hgb) Final Smokers: 0-9.0 % Methemoglobin 05/26/2023 13:59:00 0.6 <= 1.5 (% total Hgb) Final Deoxyhemoglobin/Hemoglo bin.total in Venous blood 05/26/2023 13:59:00 73.4 (% total Hgb) Final Oxygen content in Venous blood 05/26/2023 13:59:00 3.5 Below low normal 7.0-18.0 (%vol) F inal Bicarbonate, Venous, POC (i-STAT) 05/26/2023 13:59:00 34.8 Above high normal 23.0-31.0 (mmol/L) Final Performing Location LABORATORY [facility] - [address] [facility] [address]
--- OUTSIDE RECORDS SUMMARY | 2023-07-01 20:45 | External Medical Summary ---
Author Name Unknown Address Unknown Organization K01:LABORATORY [facility] - [address] [place] [address] Laboratory Report Ordering Provider Test Date Status SOTO SABILLON 05/26/2023 17:31:09 Final Observation Date Value Abnormality Reference (Units ) Status Methicillin resistant Staphylococcus aureus (MRSA) DNA [Presence] in Nose by JOHN with probe detection 05/26/2023 17:31:09 Negative Negative Final No Methicillin resistant Sta phylococcus aureus detected by PCR (amplified probe). Performing Location [facility] - [address] [place] [address]
--- OUTSIDE RECORDS SUMMARY | 2023-07-01 20:45 | External Medical Summary ---
Author Name Unknown Address Unknown Organization : Laboratory Report Ordering Provider Test Date Status SOTO SABILLON 05/26/2023 18:22:00 Final Observation Date Value Abnormality Reference (Units ) Status Mycobacterium tuberculosis stimulated gamma interferon [Interpretation] in Blood Qualitative 05/26/2023 18:22:00 SEE BELOW Abnormal Final QuantiFERON-TB Plus,1T INDET ERMINATE *
Reference range: NEGATIVE
Results are indeterminate for response to ESAT-6 and/or
CFP-10 test antigens. Gamma interferon background [Units/volume] in Blood by Immunoassay 05/26/2023 18:22:00 0.01 (IU/mL) Final Mitogen stimulated gamma int erferon [Units/volume] corrected for background in Blood 05/26/2023 18:22:00 0.18 (IU/mL) Final Mycobacterium tuberculosis s timulated gamma interferon release by CD4+ T-cells [Units/volume] corrected for background in Blood 05/26/2023 18:22:00 0.00 (IU/mL) Final Mycobacterium tuberculosis s timulated gamma interferon release by CD4+ and CD8+ T-cells [Units/volume] corrected for background in Blood 05/26/2023 18:22:00 0.00 (IU/mL) Final The Nil tube value reflects [...] T-lymphocytes.
For additional information, please refer to
http://education.[employer].Warrantly/faq/PWH491
(This link is being provided for information/
educational purposes only.)

Test Performed at:
[facility]
[address]
[place] [address]
Chun Mckinley M.D., Ph.D.,Director of Laboratories Performing Location
--- OUTSIDE RECORDS SUMMARY | 2023-07-01 20:45 | External Medical Summary ---
Author Name Unknown Address Unknown Organization K01:[facility]ATORY [facility] [place] [address] [facility] [address] Laboratory Report Ordering Provider Test Date Status RITTER ANTONI 05/26/2023 15:30:00 Final Observation Date Value Abnormality Reference (Units ) Status Lactic Acid 05/26/2023 15:30:00 1.2 0.4-2.0 (mmol/L) Final Performing Location LAB[facility]ATORY [facility] - [address] [facility] [address]
--- OUTSIDE RECORDS SUMMARY | 2023-07-01 20:45 | External Medical Summary ---
Author Name Unknown Address Unknown Organization K01:LABORATORY [facility] - [address] [place] [address] Laboratory Report Ordering Provider Test Date Status SOTO SABILLON 05/27/2023 05:25:00 Final Observation Date Value Abnormality Reference (Units ) Status Phosphate 05/27/2023 05:25:00 4.8 2.5-4.8 (m g/dL) Final Performing Location LAB[facility]ATORY [facility] - [address] [place] [address]
--- OUTSIDE RECORDS SUMMARY | 2023-07-01 20:45 | External Medical Summary ---
Author Name Unknown Address Unknown Organization : Laboratory Report Ordering Provider Test Date Status GISELLA RAMON 05/26/2023 17:56:02 Final Observation Date Value Abnormality Reference (Units ) Status Glucose Point of Care 05/26/2023 17:56:02 220 Above high normal 70-120 (mg/dL) Final Performing Location
--- OUTSIDE RECORDS SUMMARY | 2023-07-01 20:45 | External Medical Summary ---
Author Name Unknown Address Unknown Organization K01:LABORATORY [facility] [place] - [address] [facility] [address] Laboratory Report Ordering Provider Test Date Status SOTO SABILLON 05/27/2023 05:25:00 Final Observation Date Value Abnormality Reference (Units ) Status WBC, Total 05/27/2023 05:25:00 5.75 4.00-10.80 (K/uL) Final RBC 05/27/2023 05:25:00 2.94 4.50-5.25 (M/uL) Final Hemoglobin 05/27/2023 05:25:00 9.4 Below low normal 14.0-16.8 (g/dL) Final HCT 05/27/2023 05:25:00 30.6 Below low normal 40.0-48.4 (%) Final MCV 05/27/2023 05:25:00 104.1 82.0-99.5 (fL) Final MCH 05/27/2023 05:25:00 32.0 27.0-34.0 (pg) Final MCHC 05/27/2023 05:25:00 30.7 32.0-36.0 (g/dL) Final RDW 05/27/2023 05:25:00 17.4 11.5-15.5 (%) Final Platelets 05/27/2023 05:25:00 206 140-400 (K/uL) Final MPV 05/27/2023 05:25:00 9.5 6.6-11.1 (fL) Final Nucleated erythrocytes/100 leukocytes [Ratio] in Blood by Automated count 05/27/2023 05:25:00 0 <=0 (/100 WBCs) Final Performing Location LABORATORY [facility] [place] - [address] [facility] [address]
--- OUTSIDE RECORDS SUMMARY | 2023-07-01 20:45 | External Medical Summary ---
Author Name Unknown Address Unknown Organization : Laboratory Report Ordering Provider Test Date Status GISELLA RAMON 05/27/2023 12:03:50 Final Observation Date Value Abnormality Reference (Units ) Status Glucose Point of Care 05/27/2023 12:03:50 170 Above high normal 70-120 (mg/dL) Final Performing Location
--- OUTSIDE RECORDS SUMMARY | 2023-07-01 20:45 | External Medical Summary ---
Author Name Unknown Address Unknown Organization K01:LABORATORY [facility] - [address] [address] Laboratory Report Ordering Provider Test Date Status JOSE J HINOJOSA 05/26/2023 14:13:40 Final ADMITTED patient Observation Date Value Abnormality Reference (Units ) Status Adenovirus DNA [Presence] in Nasopharynx by JOHN with non-probe detection 05/26/2023 14:13:40 Negative Negative Final Human coronavirus 229E RNA [Presence] in Nasopharynx by JOHN with non-probe detection 05/26/2023 14:13:40 Negative Negative Final Human coronavirus HKU1 RNA [Presence] in Nasopharynx by JOHN with non-probe detection 05/26/2023 14:13:40 Negative Negative Final Human coronavirus NL63 RNA [Presence] in Nasopharynx by JOHN with non-probe detection 05/26/2023 14:13:40 Negative Negative Final Human coronavirus OC43 RNA [Presence] in Nasopharynx by JOHN with non-probe detection 05/26/2023 14:13:40 Negative Negative Final SARS-CoV-2 (COVID-19) RNA [Presence] in Nasopharynx by JOHN with non-probe detection 05/26/2023 14:13:40 Negative Negative Final Human metapneumovirus RNA [Presence] in Nasopharynx by JOHN with non-probe detection 05/26/2023 14:13:40 Negative Negative Final Rhinovirus+Enterovirus RNA [Presence] in Nasopharynx by JOHN with non-probe detection 05/26/2023 14:13:40 Negative Negative Final Influenza virus A RNA [Presence] in Nasopharynx by JOHN with non-probe detection 05/26/2023 14:13:40 Negative Negative Final Influenza virus B RNA [Presence] in Nasopharynx by JOHN with non-probe detection 05/26/2023 14:13:40 Negative Negative Final Parainfluenza virus 1 RNA [Presence] in Nasopharynx by JOHN with non-probe detection 05/26/2023 14:13:40 Negative Negative Final Parainfluenza virus 2 RNA [Presence] in Nasopharynx by JOHN with non-probe detection 05/26/2023 14:13:40 Negative Negative Final Parainfluenza virus 3 RNA [Presence] in Nasopharynx by JOHN with non-probe detection 05/26/2023 14:13:40 Negative Negative Final Parainfluenza virus 4 RNA [Presence] in Nasopharynx by JOHN with non-probe detection 05/26/2023 14:13:40 Negative Negative Final Respiratory syncytial virus RNA [Presence] in Nasopharynx by JOHN with non-probe detection 05/26/2023 14:13:40 Negative Negative Final Bordetella pertussis.pertussis toxin promoter region [Presence] in Nasopharynx by JOHN with non-probe detection 05/26/2023 14:13:40 Negative Negative Final Chlamydophila pneumoniae DNA [Presence] in Nasopharynx by JOHN with non-probe detection 05/26/2023 14:13:40 Negative Negative Final Mycoplasma pneumoniae DNA [Presence] in Nasopharynx by JOHN with non-probe detection 05/26/2023 14:13:40 Negative Negative Final Bordetella parapertussis [id number] DNA [Presence] in Nasopharynx by JOHN with non-probe detection 05/26/2023 14:13:40 Negative Negative Final
The primers that detect Rhinovirus may cross react with some Enterorviruses. The validation of bronchial specimens, tracheal aspirates, and throats for this assay was developed and performance characteristics determined by [employer]. The validation of alternate specimen types has not been cleared or approved by the U.S. Food and Drug Administration (FDA). It has been determined that such clearance or approval is not necessary. [facility] Location [facility]ATORY [facility] [place] - [facility] [address] [facility] [address]
--- OUTSIDE RECORDS SUMMARY | 2023-07-01 20:45 | External Medical Summary ---
Author Name Unknown Address Unknown Organization K01:LABORATORY [facility] [place] - [address] [facility] [place] [address] Laboratory Report Ordering Provider Test Date Status JOSE J HINOJOSA 05/26/2023 13:59:00 Final Observation Date Value Abnormality Reference (Units ) Status SYNC LEUKOCYTES IN BLOOD BY AUTOMATED COUNT 05/26/2023 13:59:00 9.96 4.00-10.80 (K/uL) Final Segs 05/26/2023 13:59:00 47.8 40.0-75.0 (%) Final Lymphs % 05/26/2023 13:59:00 42.1 Above high normal 18.0-42.0 (%) Final Monos 05/26/2023 13:59:00 8.1 1.0-11.0 (%) Final Eosinophils 05/26/2023 13:59:00 1.1 0.0-6.0 (%) Final Basos 05/26/2023 13:59:00 0.6 0.0-2.0 (%) Final Immature Granulocyte, Percent 05/26/2023 13:59:00 0.3 0.0-2.0 (%) Final Absolute Segs 05/26/2023 13:59:00 4.76 1.80-7.70 (K/uL) Final Lymphs, absolute 05/26/2023 13:59:00 4.19 1.00-4.80 (K/ul) Final Monos, Abs 05/26/2023 13:59:00 0.81 0.00-1.10 (K/uL) Final Eos, Abs 05/26/2023 13:59:00 0.11 0.00-0.70 (K/uL) Final Basos, Abs 05/26/2023 13:59:00 0.06 0.00-0.20 (K/uL) Final Immature Granulocytes, Number 05/26/2023 13:59:00 0.03 0.00-0.20 (K/uL) Final Performing Location LABORATORY [facility] [place] - [address] [facility] [address]
--- OUTSIDE RECORDS SUMMARY | 2023-07-01 20:45 | External Medical Summary ---
Author Name Unknown Address Unknown Organization K01:LABORATORY [facility] - [address] [place] [address] Laboratory Report Ordering Provider Test Date Status RITTER ANTONI 05/26/2023 15:30:00 Final Observation Date Value Abnormality Reference (Units ) Status Bacteria identified in Specimen by Culture 05/26/2023 15:30:00 No growth Final Test: Culture, Blood (Site 2 )
Specimen Source: Blood, Venous
Specimen Type: Blood
Specimen Date: 05/26/2023 3:30 PM
Result Date: 05/31/2023 5:01 PM
Result Status: Final result
Resulting Lab: LABORATORY [facility] [place]
[address]
[place] [id number]

CULTURE

No growth

null Performing Location LABORATORY [facility] [place] - [address] [place] [address]
--- OUTSIDE RECORDS SUMMARY | 2023-07-01 20:45 | External Medical Summary ---
Author Name Unknown Address Unknown Organization : Laboratory Report Ordering Provider Test Date Status GISELLA RAMON 05/27/2023 05:32:28 Final Observation Date Value Abnormality Reference (Units ) Status Glucose Point of Care 05/27/2023 05:32:28 191 Above high normal 70-120 (mg/dL) Final Performing Location
--- OUTSIDE RECORDS SUMMARY | 2023-07-01 20:45 | External Medical Summary ---
Author Name Unknown Address Unknown Organization K01:LABORATORY [facility] [place] - [address] [facility] [address] Laboratory Report Ordering Provider Test Date Status JOSE J HINOJOSA 05/26/2023 13:59:00 Final Observation Date Value Abnormality Reference (Units ) Status WBC, Total 05/26/2023 13:59:00 9.96 4.00-10.80 (K/uL) Final RBC 05/26/2023 13:59:00 2.90 4.50-5.25 (M/uL) Final Hemoglobin 05/26/2023 13:59:00 9.3 Below low normal 14.0-16.8 (g/dL) Final HCT 05/26/2023 13:59:00 29.8 Below low normal 40.0-48.4 (%) Final MCV 05/26/2023 13:59:00 102.8 82.0-99.5 (fL) Final MCH 05/26/2023 13:59:00 32.1 27.0-34.0 (pg) Final MCHC 05/26/2023 13:59:00 31.2 32.0-36.0 (g/dL) Final RDW 05/26/2023 13:59:00 17.5 11.5-15.5 (%) Final Platelets 05/26/2023 13:59:00 236 140-400 (K/uL) Final MPV 05/26/2023 13:59:00 9.3 6.6-11.1 (fL) Final Nucleated erythrocytes/100 leukocytes [Ratio] in Blood by Automated count 05/26/2023 13:59:00 0 <=0 (/100 WBCs) Final Performing Location LABORATORY [facility] [place] - [address] [facility] [address]
--- NOTE | 2023-07-02 00:26 | CT Scan Report ---
Exam(s): CT CHEST Without Contrast EXAM: CT Chest Without Intravenous Contrast CLINICAL HISTORY: Reason for exam: abn xray, trach replacement. TECHNIQUE: Axial computed tomography images of the chest without intravenous contrast. CTDI is 7.87 mGy and DLP is 278.79 mGy-cm. Automated exposure control was utilized for the study. A dose lowering technique was utilized adhering to the principles of ALARA. COMPARISON: No relevant prior studies available. FINDINGS: Lungs: Aspiration pneumonia at the RIGHT lung base, with debris in the RIGHT mainstem bronchus. Small RIGHT pleural effusion. No mass. Pleural space: See above. Heart: Sternotomy wires. Cardiomegaly. No significant pericardial effusion. No significant coronary artery calcifications. Bones/joints: Degenerative changes of the spine. No acute fracture. No dislocation. Soft tissues: Unremarkable. Vasculature: Atherosclerotic changes of the aorta, with coronary involvement. No thoracic aortic aneurysm. Lymph nodes: Unremarkable. No enlarged lymph nodes. Gallbladder and bile ducts: Cholecystectomy. Tubes, lines and devices: PEG tube in the stomach with catheter extending into the small bowel. IMPRESSION: 1. Aspiration pneumonia at the RIGHT lung base, with debris in the RIGHT mainstem bronchus. Small RIGHT pleural effusion. 2. Cholecystectomy. Electronically signed by: Jim Ward MD 07/02/23 00:26 AM
[2023-07-02] MEDS: SODIUM CHLORIDE 0.9% 1,000 ML IV SCH (01:52)
[2023-07-02 02:12] LABS: Basophils # (auto) 0.04 K/uL (0.00-0.20); Basophils % (auto) 0.6 %; Eosinophils # (auto) 0.25 K/uL (0.00-0.50); Eosinophils % (auto) 3.5 %; Hemoglobin 9.9 g/dl (14.0-18.0); Immature Granulocytes # (auto) 0.02 K/uL (0.01-0.20); Immature Granulocytes % (auto) 0.3 %; Lymphocytes # (auto) 2.15 K/uL (1.20-3.40); Mean Corpuscular Hemoglobin 30.4 pg (25.0-34.0); Mean Corpuscular Hgb Conc 30.9 g/dL (32.0-36.0); Mean Corpuscular Volume 98.2 fL (80.0-100.0); Mean Platelet Volume 9.4 fL (9.4-12.4); Monocytes # (auto) 1.02 K/uL (0.11-0.59); Monocytes % (auto) 14.2 %; Neutrophils # (auto) 3.68 K/uL (1.40-6.50); Neutrophils % (auto) 51.4 %; Platelet Count 262 K/uL (130-400); RDW Coefficient of Variation 16.9 % (11.5-14.5); RDW Standard Deviation 61.1 fL (36.4-46.3); Red Blood Count 3.26 M/uL (4.70-6.10); White Blood Count 7.16 K/ul (4.8-10.8)
[2023-07-02] MEDS: PIPERACILLIN/TAZOBACTAM 4.5 GM/100 ML BAG IV ONE (02:18)
[2023-07-02 02:20] LABS: Albumin Globulin Ratio 0.9 (0.9-2); Albumin Level 3.4 gm/dl (3.4-5.0); BUN Creatinine Ratio 39.6 (10-20); Bilirubin,Total 0.8 mg/dl (0.2-1.0); Calcium 9.2 mg/dl (8.6-10.3); Creatinine Clr Calc Pharmacy 121.5 ml/min; Est GFR (African American) 120.6 ml/min; Est GFR (Non-African American) 104.1 ml/min; Globulin 3.9 gm/dl (2.5-4.0); Potassium 4.4 mmol/L (3.5-5.1); Total Protein 7.3 gm/dl (6.0-8.3)
[2023-07-02 03:07] LABS: Magnesium 1.8 mg/dl (1.7-2.4)
[2023-07-02] MEDS ORDERED: XOPENEX/ATROVENT 1.25mg/0.5MG NEB COMBO NEB STA (03:18)
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
[2023-07-02 03:23] LABS: Thyroid Stimulating Hormone 6.211 uIu/ml (0.300-4.500)
[2023-07-02] MEDS: SODIUM CHLORIDE 0.9% 1,000 ML IV ONE (03:36)
[2023-07-02] MEDS ORDERED: KETOROLAC TROMETHAMINE 15 MG/ML VIAL IV PRN (03:37)
[2023-07-02] MEDS: IPRATROPIUM BROMIDE NEB SOLN 0.02% 0.5MG/2.5ML VIAL INH STA (03:51)
[2023-07-02] MEDS: LEVALBUTEROL 1.25 MG/3 ML NEB NEB STA (03:51)
[2023-07-02] MEDS ORDERED: PROMETHAZINE 6.25 MG/50.25 ML BAG IV PRN (03:56)
[2023-07-02] MEDS ORDERED: [UNRECOGNIZED DRUG - OTHER] feeding tube SCH (04:26)
[2023-07-02] MEDS ORDERED: ACETAMINOPHEN 325 MG TAB PEG PRN (04:26)
[2023-07-02] MEDS ORDERED: NUTRITIONAL SUPPLEMENTS feeding tube SCH (04:26)
[2023-07-02 07:06] LABS: Basophils # (auto) 0.04 K/uL (0.00-0.20); Basophils % (auto) 0.6 %; Eosinophils # (auto) 0.28 K/uL (0.00-0.50); Eosinophils % (auto) 3.9 %; Hematocrit (blood only) 29.5 % (42.0-52.0); Hemoglobin 9.2 g/dl (14.0-18.0); Immature Granulocytes # (auto) 0.02 K/uL (0.01-0.20); Immature Granulocytes % (auto) 0.3 %; Lymphocytes # (auto) 2.09 K/uL (1.20-3.40); Lymphocytes % (auto) 29.5 %; Mean Corpuscular Hemoglobin 30.7 pg (25.0-34.0); Mean Corpuscular Hgb Conc 31.2 g/dL (32.0-36.0); Mean Corpuscular Volume 98.3 fL (80.0-100.0); Mean Platelet Volume 9.4 fL (9.4-12.4); Monocytes # (auto) 1.13 K/uL (0.11-0.59); Monocytes % (auto) 15.9 %; Neutrophils # (auto) 3.53 K/uL (1.40-6.50); Neutrophils % (auto) 49.8 %; Platelet Count 251 K/uL (130-400); RDW Coefficient of Variation 17.2 % (11.5-14.5); White Blood Count 7.09 K/ul (4.8-10.8)
--- NOTE | 2023-07-02 07:19 | XRay Report ---
SOFT TISSUES NECK 2 VIEWS CLINICAL HISTORY: Tracheostomy placement. FINDINGS: AP and lateral views of the neck are obtained. No prior studies are available for compariso n at the time of dictation. A tracheostomy is in place. The soft tissues of the neck are normal as vi sualized. The airway is patent. No radiodense foreign body is seen. The retropharyngeal/prevertebral soft tissues are normal. Spondylotic change is noted in the cervical spine. Midline sternotomy wires are noted. Airspace consolidation is seen in the right midlung. There is chronic deformity of the lef t clavicle. IMPRESSION: 1. A tracheostomy is in place. 2. The soft tissues of the neck are otherwise normal as imaged. 3. Airspace consolidation is noted in the right midlung. Electronically signed by: Chandler Jones M.D. 07/02/2023 7:18 AM
[2023-07-02 07:31] LABS: T4 Free Thyroxine 0.95 ng/dl (0.61-1.60)
--- NOTE | 2023-07-02 07:58 | XRay Report ---
SINGLE VIEW CHEST CLINICAL HISTORY: Tracheostomy placement. FINDINGS: 2 AP, portable, upright chest radiograph is are compared to study dated 07/30/2019. Correlat ion is made with chest CT performed the same date 07/01/2023. A tracheostomy is in place. The patient is status post midline sternotomy. The heart is enlarged and noting atherosclerotic calcification of the thoracic aorta. The pulmonary vasculature is nondistended congested. Chronic interstitial thicken ing is similar to previous. There is chronic elevation of the right hemidiaphragm noting bibasilar sc arring/atelectasis. Airspace opacities in the right mid lung are correspond to fluid along the major fissure when correlated with a recent CT scan. There is a small pleural effusion at the right lung ba se. Airspace consolidation is seen at the right lung base. No pneumothorax is seen. The skeletal stru ctures are osteopenic. There are chronic/healed left-sided rib fractures. Degenerative change is note d in the shoulders and spine. Cholecystectomy clips and a gastrostomy tube are seen in the upper abdo men. IMPRESSION: 1. Cardiomegaly without radiographic evidence of congestive failure. 2. Small right pleural effusion with right basilar consolidation. Correlate clinically for evidence o f pneumonia/aspiration pneumonitis. Radiographic follow-up to resolution is recommended. 3. A tracheostomy is in place. ACT 112: Negative or not required by law. Electronically signed by: Chandler Jones M.D. 07/02/2023 7:57 AM
[2023-07-02 08:03] LABS: Calcium 8.9 mg/dl (8.6-10.3); Potassium 4.2 mmol/L (3.5-5.1)
[2023-07-02 08:08] LABS: BUN Creatinine Ratio 38.8 (10-20); Est GFR (African American) 119.6 ml/min; Est GFR (Non-African American) 103.2 ml/min
[2023-07-02] MEDS ORDERED: PANTOPRAZOLE 40 MG GT SCH (09:00)
[2023-07-02] MEDS: LEVOTHYROXINE SODIUM 75 MCG TABLET PEG SCH (10:50)
[2023-07-02] MEDS: ASPIRIN 81 MG CHEW PEG SCH (10:51)
[2023-07-02] MEDS: LACTOBACILLUS ACIDOPHILUS 1 GM PACK PEG SCH (10:52)
[2023-07-02] MEDS: ENOXAPARIN INJ 30 MG/0.3 ML SYR SQ SCH (10:52)
[2023-07-02] MEDS: LANSOPRAZOLE 30 MG SOLTAB PEG SCH (10:53)
[2023-07-02] MEDS: PIPERACILLIN/TAZOBACTAM 4.5 GM in DEXTROSE 5% MINI-B 100 ML IV ONE (11:07)
[2023-07-02] MEDS: CHLORHEXIDINE GLUCONATE 0.12% 480 ML MT SCH (11:12)
--- NOTE | 2023-07-02 13:53 | Communication Note ---
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 Patient at [facility] as of 06/30, after stay at [facility] s/p discharge from admission at [facility]. Patient evaluated at bedside. Denied any concerns on evaluation. Reports feeling "fine." On trach collar. Patient was admitted to [facility] on 05/26/2023 for stridor. 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 This was performed by Dr. De La Rosa . First trach change performed 06/03/2023. Received quad shot radiation therapy on 06/09/23 and 06/10/23. Discussion at [facility] Tumor board was had discussing the complexity of patient's case: " On imaging, the mass appears locally destructive and erosive. The lesion seems to abutting the thyroid cartilage and there is possible chondronecrosis of the cricoid (versus tumor necrosis). There is also soft tissue thickening of the esophagus. Again, we discussed that there are no imaging findings suggestive of metastatic disease. A surgical option for this patient would require at least a total laryngectomy, esophagectomy with gastric pull up, which could be challenging for the patient to undergo given his comorbidities and overall health. After multidisciplinary discussion, the official tumor board recommendation was for inpatient radiation oncology, medical oncology, and palliative medicine consultation." Summation of recent admission: Diagnosis of SCC of hypopharynx: Palliative Care evaluated patient on 06/04 at [facility]: "does not eat by mouth, uses feeding tube" -Was with decision making capacity Oncology met with patient on 05/26: -Declined surgery, wishes to pursue radiation Heme/Onc appt 07/29 Radiation Oncology Met with patient on 06/05: -Poor ECOG, not candidate for combo Chemo/XRT -Planning for "shot radiation" "Per chart 06/25 communication report: Patient is scheduled for Quad shot RT on 07/01/23 and 07/02/23. Rad/Onc staff has been attempting to contact patient regard RT appointments. Called both patient and patient's spouse's phones, No answer. Left messages for patient and patient's spouse to return my call. Called [facility] and spoke with Juany. Patient is still a patient at [facility] and will be tentatively discharged on 06/30/23. Juany will let patient know Rad/Onc staff is attempting to contact patient. Rad/Onc nursing phone number provided. " Speech evaluated patient Allow ice chips and sips of water in moderation w/good oral care for comfort and to facilitate overall swallow function GOC regarding PO intake moving forward w/this pt #Trach tube dislodged -Replaced with smaller caliber, not likely candidate for pasey-savannah 2/[address] #Aspiration pneumonitis #Recurrent laryngeal cancer ongoing radiation Rx #PEG tube placement No sepsis for now Discontinue Zosyn and monitor clinical improvement, low threshold to resume Resume TF Patient with intent to pursue radiation, will continue NPO status with ice/lazo, Oral care and aspiration precautions #CAD status CABG/stent/PVD #PAF, patient NSR #hypertension, stable #hyperlipidemia, on statin Rx #hypothyroidism, TSH 6.2 on admission #Anemia of chronic disease, hemoglobin at baseline #DM2 on oral medications, well-controlled as of recent hemoglobin A1c of 6 last month #GERD, on PPI #past tobacco abuse DVT prophylaxis. Lovenox subcu DNR as per patient's prior directives.
[2023-07-02] MEDS: PEPTAMEN 1.5 CAL 1,000 ML BAG JT SCH (14:17)
[2023-07-02] MEDS: TUBE FEEDING WATER FLUSH JT SCH (14:28)
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
[2023-07-02] MEDS: ALBUT/IPRATROP 3MG/0.5MG NEB 3 ML VIAL NEB SCH (18:31)
[2023-07-02] MEDS: ATORVASTATIN 10 MG TAB PEG SCH (20:13)
[2023-07-02] MEDS: DOXAZosin MESYLATE TAB 2 MG TAB PEG SCH (20:13)
[2023-07-02] MEDS: SODIUM CHLOR 7% 4 ML NEB NEB SCH (21:00)
[2023-07-02] MEDS: ACETYLCYSTEINE 20% INHAL SOLN 4ML ***DISPENSED BY RESP. INH SCH (21:00)
[2023-07-03] MEDS: POLYETHYLENE (MIRALAX) 17 GM PACK PEG SCH (07:43)
[2023-07-03] MEDS: DOCUSATE SODIUM/SENNA 50/8.6MG TAB PEG SCH (07:43)
--- NOTE | 2023-07-03 07:44 | Hospitalist Progress Note ---
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 Patient at [facility] as of 06/30, after stay at [facility] s/p discharge from admission at [facility]. Circumstances of dislodged trach are unclear. Patient was admitted to [facility] on 05/26/2023 for stridor. 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 This was performed by Dr. De La Rosa . First trach change performed 06/03/2023. Received quad shot radiation therapy on 06/09/23 and 06/10/23. Discussion at [place] Tumor board was had discussing the complexity of patient's case: " On imaging, the mass appears locally destructive and erosive. The lesion seems to abutting the thyroid cartilage and there is possible chondronecrosis of the cricoid (versus tumor necrosis). There is also soft tissue thickening of the esophagus. Again, we discussed that there are no imaging findings suggestive of metastatic disease. A surgical option for this patient would require at least a total laryngectomy, esophagectomy with gastric pull up, which could be challenging for the patient to undergo given his comorbidities and overall health. After multidisciplinary discussion, the official tumor board recommendation was for inpatient radiation oncology, medical oncology, and palliative medicine consultation." Summation of recent admission: Diagnosis of SCC of hypopharynx: Palliative Care evaluated patient on 06/04 at [facility]: "does not eat by mouth, uses feeding tube" -Was with decision making capacity Oncology met with patient on 05/26: -Declined surgery, wishes to pursue radiation Heme/Onc appt 07/29 Radiation Oncology Met with patient on 06/05: -Poor ECOG, not candidate for combo Chemo/XRT -Planning for "shot radiation" "Per chart 06/25 communication report: Patient is scheduled for Quad shot RT on 07/01/23 and 07/02/23. Rad/Onc staff has been attempting to contact patient regard RT appointments. Called both patient and patient's spouse's phones, No answer. Left messages for patient and patient's spouse to return my call. Called [facility] and spoke with Juany. Patient is still a patient at [facility] and will be tentatively discharged on 06/30/23. Juany will let patient know Rad/Onc staff is attempting to contact patient. Rad/Onc nursing phone number provided. " Speech evaluated patient Allow ice chips and sips of water in moderation w/good oral care for comfort and to facilitate overall swallow function regarding PO intake moving forward w/this pt Patient otherwise doing ok medically at this standpoint. Patient to transition to inpatient status as placement is ongoing question with family as is concerned with ability to manage patient. Referral made to LTAC via CM. #Trach tube dislodged -Replaced with smaller caliber, not likely candidate for pasey-savannah 2/[address] -Recommend ENT follow up to see if larger caliber can be placed #Aspiration pneumonia #Copious secretions from trach #Recurrent laryngeal cancer ongoing radiation Rx #PEG tube placement No sepsis for now Discontinue Zosyn and monitor clinical improvement, Continue TF Patient with intent to pursue radiation, will continue NPO status with ice/lazo, Oral care and aspiration precautions Pulmonary on consult to aid in management of secretions given smaller caliber tube -Reviewed Pulm notes/recommendations -Mucomyst nebs, chest PT, and hypertonic saline nebs -Started Amoxicillin/clav for 10 days #CAD status CABG/stent/PVD #PAF, patient NSR #hypertension, stable #hyperlipidemia, on statin Rx #hypothyroidism, TSH 6.2 on admission #Anemia of chronic disease, hemoglobin at baseline #DM2 on oral medications, well-controlled as of recent hemoglobin A1c of 6 last month #GERD, on PPI #past tobacco abuse DVT prophylaxis. Lovenox subcu DNR as per patient's prior directives. Discharge planning ongoing, LTACH v HH Admission and Anticipated Discharge Date Admission Date: July 02, 2023 Subjective No acute events overnight Reports improvement in sputum production Long discussion [35 min] with and patient regarding next steps for placement/management of trach. concerned regarding medical ability to handle trach, as well as financial concerns. Case management notified and following Physical Exam 2 Constitutional: WD/WN, vitals as above Neck: trach in place, decreased mucus/gurgling noted, on trach collar Respiratory: crackles bilaterally, Cardiovascular: RRR, no murmur, no edema Gastrointestinal (Abdomen): normal bowel sounds, soft, nontender, no hepatosplenomegaly Results & Data Results & Data Vital Signs (Past 12 Hours) Vital Signs Temp Pulse Pulse Resp BP Pulse Ox O2 Del Method 07/03/23 07:04 36.9 C 76 18 124/64 97 Trach Collar 07/03/23 06:13 72 16 97 Trach Collar 07/02/23 22:02 36.8 C 66 16 121/69 97 Trach Collar 07/02/23 21:01 84 16 98 Trach Collar 07/02/23 20:00 Trach Collar O2 Flow Rate FiO2 07/03/23 07:04 6 07/03/23 06:13 6 28 07/02/23 22:02 6 07/02/23 21:01 6 28 07/02/23 20:00 4 Laboratory Results Short CBC 07/03/23 Range/Units 08:08 WBC 11.49 H (4.8-10.8) K/ul Hgb 9.2 L (14.0-18.0) g/dl Hct 29.0 L (42.0-52.0) % Plt Count 231 (130-400) K/uL BMP 07/03/23 08:08 Sodium 133 L Potassium 4.2 Chloride 99 Carbon Dioxide 28 BUN 15 Creatinine 0.55 L Glucose 192 H Calcium 8.9 Medications Administered Home Medications Medication Instructions Recorded Confirmed Last Taken levothyroxine 75 mcg tablet 75 mcg feeding tube QAM 04/26/19 07/01/23 07/01/23 metformin 1,000 mg tablet 1,000 mg feeding tube BID 04/26/19 07/01/23 07/01/23 pantoprazole 40 mg tablet,delayed 40 mg PO QAM 04/26/19 07/01/23 07/01/23 release amoxicillin 500 mg tablet 2,000 mg PO UD PRN prior to dental 08/16/19 07/01/23 Unknown appointment Lactobacillus rhamnosus GG 10 1 cap feeding tube DAILY 07/01/23 07/01/23 07/01/23 billion cell capsule Pantoprazole Liquid 40 mg G-tube DAILY 07/01/23 07/01/23 07/01/23 acetaminophen 325 mg tablet 650 mg feeding tube Q6H PRN 07/01/23 07/01/23 Unknown (Tylenol) PAIN/FEVER >101 aspirin 81 mg chewable tablet 81 mg feeding tube DAILY 07/01/23 07/01/23 07/01/23 atorvastatin 10 mg tablet 10 mg feeding tube HS 07/01/23 07/01/23 06/30/23 chlorhexidine gluconate 0.12 % 15 ml buccal BID 07/01/23 07/01/23 07/01/23 08:00 mouthwash doxazosin 2 mg tablet 2 mg feeding tube HS 07/01/23 07/01/23 06/30/23 nutritional supplements 0.06 250 ea feeding tube 5XD 07/01/23 07/01/23 07/01/23 gram-1.5 kcal/mL oral liquid (Osmolite 1.5 Yonis) trolamine salicylate 10 % topical 1 applic topical BID 07/01/23 07/01/23 07/01/23 08:00 cream Active Medications Generic Name Dose Route Start Last Admin Trade Name Freq PRN Reason Stop Dose Admin Acetylcysteine 5 ml 07/02/23 18:00 07/03/23 06:12 Acetylcysteine 20% Inhal Soln 4ml Dispensed By Resp. INH 08/01/23 17:59 5 ml Q12R CRYSTAL Administration Albuterol 3 ml 07/02/23 19:00 07/03/23 06:13 Albut/Ipratrop 3mg/0.5mg Neb 3 Ml Vial NEB 08/01/23 18:59 3 ml BIDR CRYSTAL Administration Protocol Amoxicillin/Clavulanate Potassium 875 mg 07/03/23 09:00 07/03/23 09:25 Amoxicillin/Clavulanate Susp 400/57 Mg 5 Ml Btl GT 07/10/23 08:59 875 mg BID CRYSTAL Administration Protocol Aspirin 81 mg 07/02/23 09:00 07/03/23 07:44 Aspirin 81 Mg Chew PEG 08/01/23 08:59 81 mg DAILY CRYSTAL Administration Atorvastatin Calcium 10 mg 07/02/23 21:00 07/02/23 20:13 Atorvastatin 10 Mg Tab PEG 08/01/23 20:59 10 mg HS CRYSTAL Administration Chlorhexidine Gluconate 15 ml 07/02/23 09:00 07/03/23 07:44 Chlorhexidine Gluconate 0.12% 480 Ml MT 08/01/23 08:59 15 ml BID CRYSTAL Administration Doxazosin Mesylate 2 mg 07/02/23 21:00 07/02/23 20:13 Doxazosin Mesylate Tab 2 Mg Tab PEG 08/01/23 20:59 2 mg HS CRYSTAL Administration Enoxaparin Sodium 30 mg 07/02/23 09:00 07/03/23 07:44 Enoxaparin Inj 30 Mg/0.3 Ml Syr SQ 08/01/23 08:59 30 mg QAM CRYSTAL Administration Enteral Nutritional Formula 1,000 ml 07/02/23 12:00 07/02/23 14:17 Peptamen 1.5 Yonis 1,000 Ml Bag JT 08/01/23 11:59 1,000 ml .See Protocol CRYSTAL Administration Protocol Lactobacillus Acidophilus 1 gm 07/02/23 09:00 07/03/23 07:44 Lactobacillus Acidophilus 1 Gm Pack PEG 08/01/23 08:59 1 gm DAILY CRYSTAL Administration Lansoprazole 30 mg 07/02/23 09:00 07/03/23 07:43 Lansoprazole 30 Mg Soltab PEG 08/01/23 08:59 30 mg QAM CRYSTAL Administration Protocol Levothyroxine Sodium 75 mcg 07/02/23 06:30 07/03/23 05:16 Levothyroxine Sodium 75 Mcg Tablet PEG 08/01/23 06:29 75 mcg DAILYBB CRYSTAL Administration Polyethylene Glycol 17 gm 07/03/23 09:00 07/03/23 07:43 Polyethylene (Miralax) 17 Gm Pack PEG 08/02/23 08:59 17 gm DAILY CRYSTAL Administration Senna/Docusate Sodium 1 tab 07/03/23 09:00 07/03/23 07:43 Docusate Sodium/Senna 50/8.6mg Tab PEG 08/02/23 08:59 1 tab QAM CRYSTAL Administration Sodium Chloride 4 ml 07/02/23 19:00 07/03/23 06:13 Sodium Chlor 7% 4 Ml Neb NEB 08/01/23 18:59 4 ml BIDR CRYSTAL Administration Sterile Water 150 ml 07/02/23 12:00 07/03/23 12:03 Tube Feeding Water Flush JT 08/01/23 11:59 150 ml Q4H CRYSTAL Administration (1) Aspiration pneumonia Laterality: right Lung location: lower lobe of lung
[2023-07-03 08:36] LABS: Hemoglobin 9.2 g/dl (14.0-18.0); Mean Corpuscular Hemoglobin 30.7 pg (25.0-34.0); Mean Corpuscular Hgb Conc 31.7 g/dL (32.0-36.0); Mean Corpuscular Volume 96.7 fL (80.0-100.0); Mean Platelet Volume 9.5 fL (9.4-12.4); Platelet Count 231 K/uL (130-400); RDW Coefficient of Variation 16.6 % (11.5-14.5); RDW Standard Deviation 59.2 fL (36.4-46.3); White Blood Count 11.49 K/ul (4.8-10.8)
[2023-07-03 08:53] LABS: BUN Creatinine Ratio 27.3 (10-20); Calcium 8.9 mg/dl (8.6-10.3); Creatinine Clr Calc Pharmacy 106.1 ml/min; Est GFR (African American) 114.1 ml/min; Est GFR (Non-African American) 98.4 ml/min; Magnesium 1.6 mg/dl (1.7-2.4); Phosphorus 3.6 mg/dl (2.5-4.9); Potassium 4.2 mmol/L (3.5-5.1)
[2023-07-03] MEDS: AMOXICILLIN/CLAVULANATE SUSP 400/57 MG 5 ML BTL GT SCH (09:25)
--- NOTE | 2023-07-03 13:28 | Pulmonology Progress Note ---
Date of Service July 03, 2023 Assessment & Plan (1) Aspiration pneumonia: Laterality: right Lung location: lower lobe of lung (2) Complication of tracheostomy tube: (3) Pleural effusion: Plan CT chest 07/01/2023 personally reviewed: Minimal tree-in-bud opacities appreciated in the right lower lobe Small right-sided pleural effusion with fluid in the fissure Motion degraded study with mosaicism appreciated in the upper lobes No significant mediastinal lymphadenopathy -- Trach dependent respiratory failure Trach was dislodged, in the ER size 4 uncuffed was placed, patient usually has size 6 Would recommend to follow-up with outpatient ENT to resize him to 6 or what ever they think is reasonable for the patient. --Right lower lobe pneumonia Likely aspiration Procalcitonin negative -- History of recurrent laryngeal cancer, squamous cell carcinoma S/p tracheostomy May 2023. Patient refused surgery and chemotherapy opted for palliative radiation Plan: Continue with antibiotic for total of 10 days Continue with 7% saline nebulized along with Mucomyst and chest PT And aggressive suctioning Please note the above document was generated using voice recognition software. It may contain grammatical, syntax or spelling errors.Any formal questions or concerns about the content, text or information contained within the body of this dictation should be directly addressed to the provider for clarification. Admission and Anticipated Discharge Date Admission Date: July 02, 2023 Subjective Patient seen and examined at bedside. No acute distress, no adverse events overnight Patient's was also in the room along with case liner at the time of examination He stated that he is feeling much better compared to when he came to the hospital The nebulizer treatment has helped him bring up the phlegm. Denies any chest pain, no nausea or vomiting Review of Systems 2 Review of Systems: All systems reviewed & are unremarkable except as noted in Subjective Physical Exam 2 Physical Exam: Constitutional: No acute distress HEENT: EOMI, PERRLA, size 4 uncuffed trach Respiratory system: Decreased air entry bilaterally, no wheeze, no rhonchi, positive crackles bilaterally, right greater than left CVS: S1-S2 positive, no murmurs or gallops Abdomen: Soft, nontender, nondistended, positive bowel sounds x4, positive PEG Extremities: +2 pulses bilaterally radialis/ dorsalis pedis Neuro: Awake alert oriented x3 Psych: Normal mood and affect G/U: No Jenkins Results & Data Results & Data Vital Signs (Past 12 Hours) Vital Signs Temp Pulse Pulse Resp BP Pulse Ox O2 Del Method 07/03/23 07:04 36.9 C 76 18 124/64 97 Trach Collar 07/03/23 06:13 72 16 97 Trach Collar O2 Flow Rate FiO2 07/03/23 07:04 6 07/03/23 06:13 6 28 Laboratory Results 07/03/23 08:08 07/03/23 08:08 PG Care Time/CCT Total # of Minutes Spent Total Time Spent with Patient: Total time spent is greater than 50% in coordination of care (as documented) at patient's floor/unit and/or counseling patient: Coding Level of Care Code 22773 SUB INP/OBS CARE 3/50MIN Diagnoses Aspiration pneumonia J69.0 Laterality: right Lung location: lower lobe of lung Complication of tracheostomy tube J95.00 Pleural effusion J90
[2023-07-03] MEDS: MAGNESIUM SULFATE / D5W 1 GM/100 ML BAG IV SCH (17:09)
[2023-07-03 17:47] LABS: Urine Potassium 33.5 mmol/L
[2023-07-04 06:45] LABS: Hematocrit (blood only) 26.3 % (42.0-52.0); Hemoglobin 8.7 g/dl (14.0-18.0); Mean Corpuscular Hemoglobin 31.4 pg (25.0-34.0); Mean Corpuscular Hgb Conc 33.1 g/dL (32.0-36.0); Mean Corpuscular Volume 94.9 fL (80.0-100.0); Mean Platelet Volume 9.5 fL (9.4-12.4); Platelet Count 219 K/uL (130-400); RDW Coefficient of Variation 16.3 % (11.5-14.5); RDW Standard Deviation 56.3 fL (36.4-46.3); Red Blood Count 2.77 M/uL (4.70-6.10); White Blood Count 7.63 K/ul (4.8-10.8)
[2023-07-04 06:55] LABS: BUN Creatinine Ratio 33.3 (10-20); Calcium 8.7 mg/dl (8.6-10.3); Creatinine Clr Calc Pharmacy 121.5 ml/min; Est GFR (African American) 120.6 ml/min; Est GFR (Non-African American) 104.1 ml/min; Magnesium 2.1 mg/dl (1.7-2.4); Phosphorus 3.2 mg/dl (2.5-4.9); Potassium 4.2 mmol/L (3.5-5.1)
--- NOTE | 2023-07-04 12:46 | Pulmonology Progress Note ---
Date of Service July 04, 2023 Assessment & Plan (1) Aspiration pneumonia: Laterality: right Lung location: lower lobe of lung (2) Complication of tracheostomy tube: (3) Pleural effusion: Plan CT chest 07/01/2023 personally reviewed: Minimal tree-in-bud opacities appreciated in the right lower lobe Small right-sided pleural effusion with fluid in the fissure Motion degraded study with mosaicism appreciated in the upper lobes No significant mediastinal lymphadenopathy -- Trach dependent respiratory failure Trach was dislodged, in the ER size 4 uncuffed was placed, patient usually has size 6 Would recommend to follow-up with outpatient ENT to resize him to 6 or what ever they think is reasonable for the patient. --Right lower lobe pneumonia Likely aspiration Procalcitonin negative BNP 274 -- History of recurrent laryngeal cancer, squamous cell carcinoma S/p tracheostomy May 2023. Patient refused surgery and chemotherapy opted for palliative radiation Plan: Continue with antibiotic for total of 10 days Continue with 7% saline nebulized along with Mucomyst and chest PT Would recommend nebulized 7% as well as Mucomyst along with nebulized albuterol even at home. Continue aggressive suctioning Case was discussed with primary team No further recommendation from pulmonary perspective, will sign off Please call directly with any questions Please note the above document was generated using voice recognition software. It may contain grammatical, syntax or spelling errors.Any formal questions or concerns about the content, text or information contained within the body of this dictation should be directly addressed to the provider for clarification. Admission and Anticipated Discharge Date Admission Date: July 03, 2023 Subjective Patient seen and examined at bedside. No acute distress, no adverse events overnight Patient's was in the room He says he is feeling much better. Was asking if he can do some physical therapy He is bringing up phlegm without any issues. Cough is significantly decreased in amount Denies any hemoptysis Getting tube feeds. Review of Systems 2 Review of Systems: All systems reviewed & are unremarkable except as noted in Subjective Physical Exam 2 Physical Exam: Constitutional: No acute distress HEENT: EOMI, PERRLA, size 4 uncuffed trach Respiratory system: Decreased air entry bilaterally, no wheeze, no rhonchi, positive crackles bilaterally, right greater than left CVS: S1-S2 positive, no murmurs or gallops Abdomen: Soft, nontender, nondistended, positive bowel sounds x4, positive PEG Extremities: +2 pulses bilaterally radialis/ dorsalis pedis Neuro: Awake alert oriented x3 Psych: Normal mood and affect G/U: No Jenkins Skin: no rashes, warm and dry Lymphatic: no cervical or axillary lymphadenopathy Results & Data Results & Data Vital Signs (Past 12 Hours) Vital Signs Temp Pulse Pulse Resp BP Pulse Ox O2 Del Method 07/04/23 07:50 Trach Collar 07/04/23 07:38 80 16 97 Trach Collar 07/04/23 07:13 36.7 C 81 16 101/55 L 98 Room Air O2 Flow Rate FiO2 07/04/23 07:50 6 28 07/04/23 07:38 6 28 07/04/23 07:13 Laboratory Results 07/04/23 06:19 07/04/23 06:19 PG Care Time/CCT Total # of Minutes Spent Total Time Spent with Patient: Total time spent is greater than 50% in coordination of care (as documented) at patient's floor/unit and/or counseling patient: Coding Level of Care Code 38899 SUB INP/OBS CARE 2/35MIN Diagnoses Aspiration pneumonia J69.0 Laterality: right Lung location: lower lobe of lung Complication of tracheostomy tube J95.00 Pleural effusion J90
--- NOTE | 2023-07-04 13:38 | Hospitalist Progress Note ---
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 Patient at [facility] as of 06/30, after stay at [facility] s/p discharge from admission at [facility]. Circumstances of dislodged trach are unclear. Patient was admitted to [facility] on 05/26/2023 for stridor. 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 This was performed by Dr. De La Rosa . First trach change performed 06/03/2023. Received quad shot radiation therapy on 06/09/23 and 06/10/23. Discussion at [facility] Tumor board was had discussing the complexity of patient's case: " On imaging, the mass appears locally destructive and erosive. The lesion seems to abutting the thyroid cartilage and there is possible chondronecrosis of the cricoid (versus tumor necrosis). There is also soft tissue thickening of the esophagus. Again, we discussed that there are no imaging findings suggestive of metastatic disease. A surgical option for this patient would require at least a total laryngectomy, esophagectomy with gastric pull up, which could be challenging for the patient to undergo given his comorbidities and overall health. After multidisciplinary discussion, the official tumor board recommendation was for inpatient radiation oncology, medical oncology, and palliative medicine consultation." Summation of recent admission: Diagnosis of SCC of hypopharynx: Palliative Care evaluated patient on 06/04 at [facility]: "does not eat by mouth, uses feeding tube" -Was with decision making capacity Oncology met with patient on 05/26: -Declined surgery, wishes to pursue radiation Heme/Onc appt 07/29 Radiation Oncology Met with patient on 06/05: -Poor ECOG, not candidate for combo Chemo/XRT -Planning for "shot radiation" "Per chart 06/25 communication report: Patient is scheduled for Quad shot RT on 07/01/23 and 07/02/23. Rad/Onc staff has been attempting to contact patient regard RT appointments. Called both patient and patient's spouse's phones, No answer. Left messages for patient and patient's spouse to return my call. Called [facility] and spoke with Juany. Patient is still a patient at [facility] and will be tentatively discharged on 06/30/23. Juany will let patient know Rad/Onc staff is attempting to contact patient. Rad/Onc nursing phone number provided. " Speech evaluated patient Allow ice chips and sips of water in moderation w/good oral care for comfort and to facilitate overall swallow function regarding PO intake moving forward w/this pt Patient otherwise doing ok medically at this standpoint. Patient to transition to inpatient status as placement is ongoing question with family as is concerned with ability to manage patient. Referral made to LTAC via CM. Today, patient still undergoing secretion/mucus clearance and aggressive chest PT. Continues with augmentin day 06/23 #Trach tube dislodged -Replaced with smaller caliber, not likely candidate for pasey-savannah 2/[address] -Recommend ENT follow up to see if larger caliber can be placed -stable at this time #Aspiration pneumonia #Copious secretions from trach #Recurrent laryngeal cancer ongoing radiation Rx #PEG tube placement No sepsis for now Continue TF Patient with intent to pursue radiation, will continue NPO status with ice/lazo, Oral care and aspiration precautions Pulmonary on consult to aid in management of secretions given smaller caliber tube -Reviewed Pulm notes/recommendations -Mucomyst nebs, chest PT, and hypertonic saline nebs -Continue Amoxicillin/clav for 10 days #CAD status CABG/stent/PVD #PAF, patient NSR #hypertension, stable #hyperlipidemia, on statin Rx #hypothyroidism, TSH 6.2 on admission #Anemia of chronic disease, hemoglobin at baseline #DM2 on oral medications, well-controlled as of recent hemoglobin A1c of 6 last month #GERD, on PPI #past tobacco abuse DVT prophylaxis. Lovenox subcu DNR as per patient's prior directives. Discharge planning ongoing, LTACH v HH. Patient pending referral response in hopes for placement given notable trach care needs Admission and Anticipated Discharge Date Admission Date: July 03, 2023 Subjective Reports feeling somewhat improved, Evaluated patient after trach site cleaned and suction and endorsed feeling mild improvement Denies chest pain, subjective fevers, any worsening of symptoms at this time Physical Exam Constitutional: WD/WN, vitals as above Respiratory: rhonchorous breath sounds, gurguling cough; still strong cough reflex Gastrointestinal (Abdomen): normal bowel sounds, soft, nontender, no hepatosp lenomegaly peg site clean, no signs of localized infection Results & Data Results & Data Vital Signs (Past 12 Hours) Vital Signs Temp Pulse Pulse Resp BP Pulse Ox O2 Del Method 07/04/23 07:50 Trach Collar 07/04/23 07:38 80 16 97 Trach Collar 07/04/23 07:13 36.7 C 81 16 101/55 L 98 Room Air O2 Flow Rate FiO2 07/04/23 07:50 6 28 07/04/23 07:38 6 28 07/04/23 07:13 Laboratory Results Short CBC 07/04/23 Range/Units 06:19 WBC 7.63 (4.8-10.8) K/ul Hgb 8.7 L (14.0-18.0) g/dl Hct 26.3 L (42.0-52.0) % Plt Count 219 (130-400) K/uL BMP 07/04/23 06:19 Sodium 134 L Potassium 4.2 Chloride 101 Carbon Dioxide 28 BUN 16 Creatinine 0.48 L Glucose 179 H Calcium 8.7 Medications Administered Home Medications Medication Instructions Recorded Confirmed Last Taken levothyroxine 75 mcg tablet 75 mcg feeding tube QAM 04/26/19 07/01/23 07/01/23 metformin 1,000 mg tablet 1,000 mg feeding tube BID 04/26/19 07/01/23 07/01/23 pantoprazole 40 mg tablet,delayed 40 mg PO QAM 04/26/19 07/01/23 07/01/23 release amoxicillin 500 mg tablet 2,000 mg PO UD PRN prior to dental 08/16/19 07/01/23 Unknown appointment Lactobacillus rhamnosus GG 10 1 cap feeding tube DAILY 07/01/23 07/01/23 07/01/23 billion cell capsule Pantoprazole Liquid 40 mg G-tube DAILY 07/01/23 07/01/23 07/01/23 acetaminophen 325 mg tablet 650 mg feeding tube Q6H PRN 07/01/23 07/01/23 Unknown (Tylenol) PAIN/FEVER >101 aspirin 81 mg chewable tablet 81 mg feeding tube DAILY 07/01/23 07/01/23 07/01/23 atorvastatin 10 mg tablet 10 mg feeding tube HS 07/01/23 07/01/23 06/30/23 chlorhexidine gluconate 0.12 % 15 ml buccal BID 07/01/23 07/01/23 07/01/23 08:00 mouthwash doxazosin 2 mg tablet 2 mg feeding tube HS 07/01/23 07/01/23 06/30/23 nutritional supplements 0.06 250 ea feeding tube 5XD 07/01/23 07/01/23 07/01/23 gram-1.5 kcal/mL oral liquid (Osmolite 1.5 Yonis) trolamine salicylate 10 % topical 1 applic topical BID 07/01/23 07/01/23 07/01/23 08:00 cream Active Medications Generic Name Dose Route Start Last Admin Trade Name Freq PRN Reason Stop Dose Admin Acetylcysteine 5 ml 07/02/23 18:00 07/04/23 07:36 Acetylcysteine 20% Inhal Soln 4ml Dispensed By Resp. INH 08/01/23 17:59 5 ml Q12R CRYSTAL Administration Albuterol 3 ml 07/02/23 19:00 07/04/23 07:37 Albut/Ipratrop 3mg/0.5mg Neb 3 Ml Vial NEB 08/01/23 18:59 3 ml BIDR CRYSTAL Administration Protocol Amoxicillin/Clavulanate Potassium 875 mg 07/03/23 09:00 07/04/23 08:39 Amoxicillin/Clavulanate Susp 400/57 Mg 5 Ml Btl GT 07/10/23 08:59 875 mg BID CRYSTAL Administration Protocol Aspirin 81 mg 07/02/23 09:00 07/04/23 08:30 Aspirin 81 Mg Chew PEG 08/01/23 08:59 81 mg DAILY CRYSTAL Administration Atorvastatin Calcium 10 mg 07/02/23 21:00 07/03/23 19:24 Atorvastatin 10 Mg Tab PEG 08/01/23 20:59 10 mg HS CRYSTAL Administration Chlorhexidine Gluconate 15 ml 07/02/23 09:00 07/04/23 08:30 Chlorhexidine Gluconate 0.12% 480 Ml MT 08/01/23 08:59 15 ml BID CRYSTAL Administration Doxazosin Mesylate 2 mg 07/02/23 21:00 07/03/23 19:24 Doxazosin Mesylate Tab 2 Mg Tab PEG 08/01/23 20:59 2 mg HS CRYSTAL Administration Enoxaparin Sodium 30 mg 07/02/23 09:00 02/16/24 08:28 Enoxaparin Inj 30 Mg/0.3 Ml Syr SQ 08/01/23 08:59 30 mg QAM CRYSTAL Administration Enteral Nutritional Formula 1,000 ml 07/02/23 12:00 07/02/23 14:17 Peptamen 1.5 Yonis 1,000 Ml Bag JT 08/01/23 11:59 1,000 ml .See Protocol CRYSTAL Administration Protocol Lactobacillus Acidophilus 1 gm 07/02/23 09:00 07/04/23 08:30 Lactobacillus Acidophilus 1 Gm Pack PEG 08/01/23 08:59 1 gm DAILY CRYSTAL Administration Lansoprazole 30 mg 07/02/23 09:00 07/04/23 08:29 Lansoprazole 30 Mg Soltab PEG 08/01/23 08:59 30 mg QAM CRYSTAL Administration Protocol Levothyroxine Sodium 75 mcg 07/02/23 06:30 07/04/23 05:28 Levothyroxine Sodium 75 Mcg Tablet PEG 08/01/23 06:29 75 mcg DAILYBB CRYSTAL Administration Polyethylene Glycol 17 gm 07/03/23 09:00 07/04/23 08:29 Polyethylene (Miralax) 17 Gm Pack PEG 08/02/23 08:59 Not Given DAILY CRYSTAL Senna/Docusate Sodium 1 tab 07/03/23 09:00 07/04/23 08:29 Docusate Sodium/Senna 50/8.6mg Tab PEG 08/02/23 08:59 Not Given QAM CRYSTAL Sodium Chloride 4 ml 07/02/23 19:00 07/04/23 07:37 Sodium Chlor 7% 4 Ml Neb NEB 08/01/23 18:59 4 ml BIDR CRYSTAL Administration Sterile Water 150 ml 07/02/23 12:00 07/04/23 11:55 Tube Feeding Water Flush JT 08/01/23 11:59 150 ml Q4H CRYSTAL Administration (1) Aspiration pneumonia Laterality: right Lung location: lower lobe of lung
[2023-07-05 08:03] LABS: Hematocrit (blood only) 26.7 % (42.0-52.0); Hemoglobin 8.7 g/dl (14.0-18.0); Mean Corpuscular Hemoglobin 31.1 pg (25.0-34.0); Mean Corpuscular Hgb Conc 32.6 g/dL (32.0-36.0); Mean Corpuscular Volume 95.4 fL (80.0-100.0); Mean Platelet Volume 9.3 fL (9.4-12.4); Platelet Count 226 K/uL (130-400); RDW Coefficient of Variation 16.1 % (11.5-14.5); RDW Standard Deviation 56.8 fL (36.4-46.3); White Blood Count 7.43 K/ul (4.8-10.8)
[2023-07-05 08:10] LABS: BUN Creatinine Ratio 42.9 (10-20); Calcium 8.7 mg/dl (8.6-10.3); Est GFR (African American) 119.6 ml/min; Est GFR (Non-African American) 103.2 ml/min; Magnesium 1.8 mg/dl (1.7-2.4); Phosphorus 2.9 mg/dl (2.5-4.9); Potassium 4.5 mmol/L (3.5-5.1)
--- NOTE | 2023-07-05 17:04 | Hospitalist Progress Note ---
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 Patient at [facility] as of 06/30, after stay at [facility] s/p discharge from admission at [facility]. Circumstances of dislodged trach are unclear. Patient was admitted to [facility] on 05/26/2023 for stridor. 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 This was performed by Dr. De La Rosa . First trach change performed 06/03/2023. Received quad shot radiation therapy on 06/09/23 and 06/10/23. Discussion at [facility] Tumor board was had discussing the complexity of patient's case: " On imaging, the mass appears locally destructive and erosive. The lesion seems to abutting the thyroid cartilage and there is possible chondronecrosis of the cricoid (versus tumor necrosis). There is also soft tissue thickening of the esophagus. Again, we discussed that there are no imaging findings suggestive of metastatic disease. A surgical option for this patient would require at least a total laryngectomy, esophagectomy with gastric pull up, which could be challenging for the patient to undergo given his comorbidities and overall health. After multidisciplinary discussion, the official tumor board recommendation was for inpatient radiation oncology, medical oncology, and palliative medicine consultation." Summation of recent admission: Diagnosis of SCC of hypopharynx: Palliative Care evaluated patient on 06/04 at [facility]: "does not eat by mouth, uses feeding tube" -Was with decision making capacity Oncology met with patient on 05/26: -Declined surgery, wishes to pursue radiation Heme/Onc appt 07/29 Radiation Oncology Met with patient on 06/05: -Poor ECOG, not candidate for combo Chemo/XRT -Planning for "shot radiation" "Per chart 06/25 communication report: Patient is scheduled for Quad shot RT on 07/01/23 and 07/02/23. Rad/Onc staff has been attempting to contact patient regard RT appointments. Called both patient and patient's spouse's phones, No answer. Left messages for patient and patient's spouse to return my call. Called [facility] and spoke with Juany. Patient is still a patient at [facility] and will be tentatively discharged on 06/30/23. Juany will let patient know Rad/Onc staff is attempting to contact patient. Rad/Onc nursing phone number provided. " Speech evaluated patient Allow ice chips and sips of water in moderation w/good oral care for comfort and to facilitate overall swallow function regarding PO intake moving forward w/this pt Patient otherwise doing ok medically at this standpoint. Patient to transition to inpatient status as placement is ongoing question with family as is concerned with ability to manage patient. Referral made to LTAC via CM. Today, patient still undergoing secretion/mucus clearance and aggressive chest PT. Continues with augmentin day 06/23 #Trach tube dislodged -Replaced with smaller caliber, not likely candidate for pasey-savannah 2/[address] -Recommend ENT follow up to see if larger caliber can be placed -stable at this time #Aspiration pneumonia #Copious secretions from trach #Recurrent laryngeal cancer ongoing radiation Rx #PEG tube placement No sepsis for now Continue TF Patient with intent to pursue radiation, will continue NPO status with ice/lazo, Oral care and aspiration precautions Pulmonary on consult to aid in management of secretions given smaller caliber tube -Reviewed Pulm notes/recommendations -Mucomyst nebs, chest PT, and hypertonic saline nebs -Continue Amoxicillin/clav for 10 days -ID consult given pseudomonas in trach sputum culture--given clinical improvement, escalate abx? colonization? #CAD status CABG/stent/PVD #PAF, patient NSR #hypertension, stable #hyperlipidemia, on statin Rx #hypothyroidism, TSH 6.2 on admission #Anemia of chronic disease, hemoglobin at baseline #DM2 on oral medications, well-controlled as of recent hemoglobin A1c of 6 last month #GERD, on PPI #past tobacco abuse DVT prophylaxis. Lovenox subcu DNR as per patient's prior directives. Discharge planning ongoing, LTACH v HH. Patient pending referral response in hopes for placement given notable trach care needs Admission and Anticipated Discharge Date Admission Date: July 03, 2023 Subjective Reports clinically feeling much better overall Discussed concerns with home and trach management Denies any acute concerns this am Physical Exam Constitutional: WD/WN, vitals as above ENMT: minimal output Respiratory: occasional gurgling Cardiovascular: RRR, no murmur, no edema Results & Data Results & Data Vital Signs (Past 12 Hours) Vital Signs Temp Pulse Resp BP Pulse Ox O2 Del Method O2 Flow Rate 07/05/23 14:39 36.7 C 79 16 91/55 L 98 Trach Collar 6 07/05/23 09:10 Trach Collar 07/05/23 08:39 36.7 C 80 16 96/64 L 98 Trach Collar 6 07/05/23 07:22 83 18 96 Trach Collar 6 FiO2 07/05/23 14:39 07/05/23 09:10 07/05/23 08:39 07/05/23 07:22 28 Laboratory Results Short CBC 07/05/23 Range/Units 07:38 WBC 7.43 (4.8-10.8) K/ul Hgb 8.7 L (14.0-18.0) g/dl Hct 26.7 L (42.0-52.0) % Plt Count 226 (130-400) K/uL BMP 07/05/23 07:38 Sodium 133 L Potassium 4.5 Chloride 100 Carbon Dioxide 29 BUN 21 Creatinine 0.49 L Glucose 195 H Calcium 8.7 Medications Administered Home Medications Medication Instructions Recorded Confirmed Last Taken levothyroxine 75 mcg tablet 75 mcg feeding tube QAM 04/26/19 07/01/23 07/01/23 metformin 1,000 mg tablet 1,000 mg feeding tube BID 04/26/19 07/01/23 07/01/23 pantoprazole 40 mg tablet,delayed 40 mg PO QAM 04/26/19 07/01/23 07/01/23 release amoxicillin 500 mg tablet 2,000 mg PO UD PRN prior to dental 08/16/19 07/01/23 Unknown appointment Lactobacillus rhamnosus GG 10 1 cap feeding tube DAILY 07/01/23 07/01/23 07/01/23 billion cell capsule Pantoprazole Liquid 40 mg G-tube DAILY 07/01/23 07/01/23 07/01/23 acetaminophen 325 mg tablet 650 mg feeding tube Q6H PRN 07/01/23 07/01/23 Unknown (Tylenol) PAIN/FEVER >101 aspirin 81 mg chewable tablet 81 mg feeding tube DAILY 07/01/23 07/01/23 07/01/23 atorvastatin 10 mg tablet 10 mg feeding tube HS 07/01/23 07/01/23 06/30/23 chlorhexidine gluconate 0.12 % 15 ml buccal BID 07/01/23 07/01/23 07/01/23 08:00 mouthwash doxazosin 2 mg tablet 2 mg feeding tube HS 07/01/23 07/01/23 06/30/23 nutritional supplements 0.06 250 ea feeding tube 5XD 07/01/23 07/01/23 07/01/23 gram-1.5 kcal/mL oral liquid (Osmolite 1.5 Yonis) trolamine salicylate 10 % topical 1 applic topical BID 07/01/23 07/01/23 07/01/23 08:00 cream Active Medications Generic Name Dose Route Start Last Admin Trade Name Freq PRN Reason Stop Dose Admin Acetylcysteine 5 ml 07/02/23 18:00 07/05/23 07:22 Acetylcysteine 20% Inhal Soln 4ml Dispensed By Resp. INH 08/01/23 17:59 5 ml Q12R CRYSTAL Administration Albuterol 3 ml 07/02/23 19:00 07/05/23 07:21 Albut/Ipratrop 3mg/0.5mg Neb 3 Ml Vial NEB 08/01/23 18:59 3 ml BIDR CRYSTAL Administration Protocol Amoxicillin/Clavulanate Potassium 875 mg 07/03/23 09:00 07/05/23 09:17 Amoxicillin/Clavulanate Susp 400/57 Mg 5 Ml Btl GT 07/10/23 08:59 875 mg BID CRYSTAL Administration Protocol Aspirin 81 mg 07/02/23 09:00 07/05/23 09:11 Aspirin 81 Mg Chew PEG 08/01/23 08:59 81 mg DAILY CRYSTAL Administration Atorvastatin Calcium 10 mg 07/02/23 21:00 07/04/23 20:05 Atorvastatin 10 Mg Tab PEG 08/01/23 20:59 10 mg HS CRYSTAL Administration Chlorhexidine Gluconate 15 ml 07/02/23 09:00 07/05/23 09:13 Chlorhexidine Gluconate 0.12% 480 Ml MT 08/01/23 08:59 15 ml BID CRYSTAL Administration Doxazosin Mesylate 2 mg 07/02/23 21:00 07/04/23 20:05 Doxazosin Mesylate Tab 2 Mg Tab PEG 08/01/23 20:59 2 mg HS CRYSTAL Administration Enteral Nutritional Formula 1,000 ml 07/02/23 12:00 07/02/23 14:17 Peptamen 1.5 Yonis 1,000 Ml Bag JT 08/01/23 11:59 1,000 ml .See Protocol CRYSTAL Administration Protocol Lactobacillus Acidophilus 1 gm 07/02/23 09:00 07/05/23 09:12 Lactobacillus Acidophilus 1 Gm Pack PEG 08/01/23 08:59 1 gm DAILY CRYSTAL Administration Lansoprazole 30 mg 07/02/23 09:00 07/05/23 09:12 Lansoprazole 30 Mg Soltab PEG 08/01/23 08:59 30 mg QAM CRYSTAL Administration Protocol Levothyroxine Sodium 75 mcg 07/02/23 06:30 07/05/23 05:34 Levothyroxine Sodium 75 Mcg Tablet PEG 08/01/23 06:29 75 mcg DAILYBB CRYSTAL Administration Polyethylene Glycol 17 gm 07/03/23 09:00 07/05/23 09:31 Polyethylene (Miralax) 17 Gm Pack PEG 08/02/23 08:59 Not Given DAILY CRYSTAL Senna/Docusate Sodium 1 tab 07/03/23 09:00 07/05/23 09:11 Docusate Sodium/Senna 50/8.6mg Tab PEG 08/02/23 08:59 1 tab QAM CRYSTAL Administration Sodium Chloride 4 ml 07/02/23 19:00 07/05/23 07:21 Sodium Chlor 7% 4 Ml Neb NEB 08/01/23 18:59 4 ml BIDR CRYSTAL Administration Sterile Water 150 ml 07/02/23 12:00 07/05/23 16:18 Tube Feeding Water Flush JT 08/01/23 11:59 150 ml Q4H CRYSTAL Administration (1) Aspiration pneumonia Laterality: right Lung location: lower lobe of lung
[2023-07-06 06:13] LABS: Hematocrit (blood only) 27.2 % (42.0-52.0); Hemoglobin 8.8 g/dl (14.0-18.0); Mean Corpuscular Hemoglobin 31.1 pg (25.0-34.0); Mean Corpuscular Hgb Conc 32.4 g/dL (32.0-36.0); Mean Corpuscular Volume 96.1 fL (80.0-100.0); Mean Platelet Volume 9.1 fL (9.4-12.4); Platelet Count 228 K/uL (130-400); RDW Coefficient of Variation 15.9 % (11.5-14.5); Red Blood Count 2.83 M/uL (4.70-6.10); White Blood Count 7.16 K/ul (4.8-10.8)
[2023-07-06 06:35] LABS: BUN Creatinine Ratio 40.7 (10-20); Calcium 8.9 mg/dl (8.6-10.3); Est GFR (African American) 114.9 ml/min; Est GFR (Non-African American) 99.2 ml/min; Potassium 4.5 mmol/L (3.5-5.1)
--- NOTE | 2023-07-06 07:03 | Pulmonology Progress Note ---
Date of Service July 06, 2023 Assessment & Plan (1) Aspiration pneumonia: Laterality: right Lung location: lower lobe of lung (2) Complication of tracheostomy tube: (3) Pleural effusion: Plan CT chest 07/01/2023 personally reviewed: Minimal tree-in-bud opacities appreciated in the right lower lobe Small right-sided pleural effusion with fluid in the fissure Motion degraded study with mosaicism appreciated in the upper lobes No significant mediastinal lymphadenopathy -- Trach dependent respiratory failure Trach was dislodged, in the ER size 4 uncuffed was placed, patient usually has size 6 Would recommend to follow-up with outpatient ENT to resize him to 6 or what ever they think is reasonable for the patient. --Right lower lobe pneumonia Likely aspiration Procalcitonin negative BNP 274 -- History of recurrent laryngeal cancer, squamous cell carcinoma S/p tracheostomy May 2023. Patient refused surgery and chemotherapy opted for palliative radiation Plan: Continue with antibiotic for total of 10 days Continue with 7% saline nebulized along with Mucomyst and chest PT Recommend nebulized 7% as well as Mucomyst along with nebulized albuterol even at home. Continue aggressive suctioning Case was discussed with primary team No further recommendation from pulmonary perspective, will sign off Please call directly with any questions Please note the above document was generated using voice recognition software. It may contain grammatical, syntax or spelling errors.Any formal questions or concerns about the content, text or information contained within the body of this dictation should be directly addressed to the provider for clarification. Admission and Anticipated Discharge Date Admission Date: July 03, 2023 Subjective Patient seen and examined at bedside. No acute distress, no adverse events overnight Patient's was in room at the time of examination he says that the coughing has significantly improved. He has no difficulty bringing up the phlegm. Has been using nebulizer without any issues. Denies any abdominal pain. Tolerating tube feeds very well. Review of Systems 2 Review of Systems: All systems reviewed & are unremarkable except as noted in Subjective Physical Exam 2 Physical Exam: Constitutional: No acute distress HEENT: EOMI, PERRLA, size 4 uncuffed trach Respiratory system: Decreased air entry bilaterally, no wheeze, no rhonchi, positive crackles bilaterally, right greater than left CVS: S1-S2 positive, no murmurs or gallops Abdomen: Soft, nontender, nondistended, positive bowel sounds x4, positive PEG Extremities: +2 pulses bilaterally radialis/ dorsalis pedis Neuro: Awake alert oriented x3 Psych: Normal mood and affect G/U: No Jenkins Skin: no rashes, warm and dry Lymphatic: no cervical or axillary lymphadenopathy Results & Data Results & Data Vital Signs (Past 12 Hours) Vital Signs Temp Pulse Resp BP Pulse Ox O2 Del Method O2 Flow Rate 07/05/23 21:08 37 C 71 18 106/64 94 Room Air 07/05/23 20:00 Trach Collar 6 Laboratory Results 07/06/23 05:45 07/06/23 05:45 PG Care Time/CCT Total # of Minutes Spent Total Time Spent with Patient: Total time spent is greater than 50% in coordination of care (as documented) at patient's floor/unit and/or counseling patient: Coding Level of Care Code 37323 SUB INP/OBS CARE 2/35MIN Diagnoses Aspiration pneumonia J69.0 Laterality: right Lung location: lower lobe of lung Complication of tracheostomy tube J95.00 Pleural effusion J90
[2023-07-06] MEDS: ENOXAPARIN INJ 40 MG/0.4 ML SYR SQ SCH (08:23)
--- NOTE | 2023-07-06 11:46 | Hospitalist Progress Note ---
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 Patient at [facility] as of 06/30, after stay at [facility] s/p discharge from admission at [facility]. Circumstances of dislodged trach are unclear. Patient was admitted to [facility] on 05/26/2023 for stridor. 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 This was performed by Dr. De La Rosa . First trach change performed 06/03/2023. Received quad shot radiation therapy on 06/09/23 and 06/10/23. * Discussion at [place] Tumor board was had discussing the complexity of patient's case: " On imaging, the mass appears locally destructive and erosive. The lesion seems to abutting the thyroid cartilage and there is possible chondronecrosis of the cricoid (versus tumor necrosis). There is also soft tissue thickening of the esophagus. Again, we discussed that there are no imaging findings suggestive of metastatic disease. A surgical option for this patient would require at least a total laryngectomy, esophagectomy with gastric pull up, which could be challenging for the patient to undergo given his comorbidities and overall health. After multidisciplinary discussion, the official tumor board recommendation was for inpatient radiation oncology, medical oncology, and palliative medicine consultation." Summation of recent admission: Diagnosis of SCC of hypopharynx: Palliative Care evaluated patient on 06/04 at [facility]: "does not eat by mouth, uses feeding tube" -Was with decision making capacity Oncology met with patient on 05/26: -Declined surgery, wishes to pursue radiation Heme/Onc appt 07/29 Radiation Oncology Met with patient on 06/05: -Poor ECOG, not candidate for combo Chemo/XRT -Planning for "shot radiation" "Per chart 06/25 communication report: Patient is scheduled for Quad shot RT on 07/01/23 and 07/02/23. Rad/Onc staff has been attempting to contact patient regard RT appointments. Called both patient and patient's spouse's phones, No answer. Left messages for patient and patient's spouse to return my call. Called [facility] and spoke with Juany. Patient is still a patient at [facility] and will be tentatively discharged on 06/30/23. Juany will let patient know Rad/Onc staff is attempting to contact patient. Rad/Onc nursing phone number provided. Speech evaluated patient Allow ice chips and sips of water in moderation w/good oral care for comfort and to facilitate overall swallow function regarding PO intake moving forward w/this pt Patient otherwise doing ok medically at this standpoint. Patient to transition to inpatient status as placement is ongoing question with family as is concerned with ability to manage patient. Referral made to LTAC via CM. Today, patient still undergoing secretion/mucus clearance and aggressive chest PT. Continues with Augmentin day 08/26 Patient reports feeling much improved, but still requires notable aggressive suctioning and trach care. expresses notable distress with care for patient. 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 -Replaced with smaller caliber, not likely candidate for pasey-savannah 2/[address] -Recommend ENT follow up to see if larger caliber can be placed -stable at this time #Aspiration pneumonia #Copious secretions from trach #Recurrent laryngeal cancer ongoing radiation Rx #PEG tube placement No sepsis for now Continue TF Patient with intent to pursue radiation, will continue NPO status with ice/lazo, Oral care and aspiration precautions Pulmonary on consult to aid in management of secretions given smaller caliber tube -Reviewed Pulm notes/recommendations -Mucomyst nebs, chest PT, and hypertonic saline nebs -Continue Amoxicillin/clav for 10 days EOT 07/13 -ID consult given pseudomonas in trach sputum culture--given clinical improvement, escalate abx? colonization? -Discussed with Dr. Doss via [employer]--MDRO pseudomonas likely colonization given clinical improvement #CAD status CABG/stent/PVD #PAF, patient NSR #hypertension, stable #hyperlipidemia, on statin Rx #hypothyroidism, TSH 6.2 on admission #Anemia of chronic disease, hemoglobin at baseline #DM2 on oral medications, well-controlled as of recent hemoglobin A1c of 6 last month #GERD, on PPI #past tobacco abuse DVT prophylaxis. Lovenox subcu DNR as per patient's prior directives. Discharge planning ongoing, LTACH v HH. Patient pending referral response in hopes for placement given notable trach care needs Admission and Anticipated Discharge Date Admission Date: July 03, 2023 Subjective NAEO Reports feeling better each day while undergoing aggressive trach care. Denies fevers, chills, or other acute concerns Physical Exam Constitutional: WD/WN, vitals as above Respiratory: normal respiratory effort, lungs clear to auscultation trach clear of mucus plugging secretions Cardiovascular: RRR, no murmur, no edema Results & Data Results & Data Vital Signs (Past 12 Hours) Vital Signs Temp Pulse Resp BP Pulse Ox O2 Del Method 07/06/23 09:00 Trach Collar 07/06/23 07:02 36.7 C 79 16 103/64 97 Room Air Laboratory Results Short CBC 07/06/23 Range/Units 05:45 WBC 7.16 (4.8-10.8) K/ul Hgb 8.8 L (14.0-18.0) g/dl Hct 27.2 L (42.0-52.0) % Plt Count 228 (130-400) K/uL BMP 07/06/23 05:45 Sodium 135 L Potassium 4.5 Chloride 101 Carbon Dioxide 31 BUN 22 Creatinine 0.54 L Glucose 201 H Calcium 8.9 Medications Administered Home Medications Medication Instructions Recorded Confirmed Last Taken levothyroxine 75 mcg tablet 75 mcg feeding tube QAM 04/26/19 07/01/23 07/01/23 metformin 1,000 mg tablet 1,000 mg feeding tube BID 04/26/19 07/01/23 07/01/23 pantoprazole 40 mg tablet,delayed 40 mg PO QAM 04/26/19 07/01/23 07/01/23 release amoxicillin 500 mg tablet 2,000 mg PO UD PRN prior to dental 08/16/19 07/01/23 Unknown appointment Lactobacillus rhamnosus GG 10 1 cap feeding tube DAILY 07/01/23 07/01/23 07/01/23 billion cell capsule Pantoprazole Liquid 40 mg G-tube DAILY 07/01/23 07/01/23 07/01/23 acetaminophen 325 mg tablet 650 mg feeding tube Q6H PRN 07/01/23 07/01/23 Unknown (Tylenol) PAIN/FEVER >101 aspirin 81 mg chewable tablet 81 mg feeding tube DAILY 07/01/23 07/01/23 07/01/23 atorvastatin 10 mg tablet 10 mg feeding tube HS 07/01/23 07/01/23 06/30/23 chlorhexidine gluconate 0.12 % 15 ml buccal BID 07/01/23 07/01/23 07/01/23 08:00 mouthwash doxazosin 2 mg tablet 2 mg feeding tube HS 07/01/23 07/01/23 06/30/23 nutritional supplements 0.06 250 ea feeding tube 5XD 07/01/23 07/01/23 07/01/23 gram-1.5 kcal/mL oral liquid (Osmolite 1.5 Yonis) trolamine salicylate 10 % topical 1 applic topical BID 07/01/23 07/01/23 07/01/23 08:00 cream Active Medications Generic Name Dose Route Start Last Admin Trade Name Freq PRN Reason Stop Dose Admin Acetylcysteine 5 ml 07/02/23 18:00 07/06/23 07:30 Acetylcysteine 20% Inhal Soln 4ml Dispensed By Resp. INH 08/01/23 17:59 Not Given Q12R CRYSTAL Albuterol 3 ml 07/02/23 19:00 07/06/23 07:30 Albut/Ipratrop 3mg/0.5mg Neb 3 Ml Vial NEB 08/01/23 18:59 Not Given BIDR [facility] Protocol Amoxicillin/Clavulanate Potassium 875 mg 07/03/23 09:00 07/06/23 08:23 Amoxicillin/Clavulanate Susp 400/57 Mg 5 Ml Btl GT 07/10/23 08:59 875 mg BID CRYSTAL Administration Protocol Aspirin 81 mg 07/02/23 09:00 07/06/23 08:24 Aspirin 81 Mg Chew PEG 08/01/23 08:59 81 mg DAILY CRYSTAL Administration Atorvastatin Calcium 10 mg 07/02/23 21:00 07/05/23 21:08 Atorvastatin 10 Mg Tab PEG 08/01/23 20:59 10 mg HS CRYSTAL Administration Chlorhexidine Gluconate 15 ml 07/02/23 09:00 07/06/23 08:23 Chlorhexidine Gluconate 0.12% 480 Ml MT 08/01/23 08:59 15 ml BID CRYSTAL Administration Doxazosin Mesylate 2 mg 07/02/23 21:00 07/05/23 21:08 Doxazosin Mesylate Tab 2 Mg Tab PEG 08/01/23 20:59 2 mg HS CRYSTAL Administration Enoxaparin Sodium 40 mg 07/06/23 09:00 07/06/23 08:23 Enoxaparin Inj 40 Mg/0.4 Ml Syr SQ 08/05/23 08:59 40 mg QAM CRYSTAL Administration Lactobacillus Acidophilus 1 gm 07/02/23 09:00 07/06/23 08:24 Lactobacillus Acidophilus 1 Gm Pack PEG 08/01/23 08:59 1 gm DAILY CRYSTAL Administration Lansoprazole 30 mg 07/02/23 09:00 07/06/23 08:24 Lansoprazole 30 Mg Soltab PEG 08/01/23 08:59 30 mg QAM CRYSTAL Administration Protocol Levothyroxine Sodium 75 mcg 07/02/23 06:30 07/06/23 06:10 Levothyroxine Sodium 75 Mcg Tablet PEG 08/01/23 06:29 75 mcg DAILYBB CRYSTAL Administration Polyethylene Glycol 17 gm 07/03/23 09:00 07/06/23 08:25 Polyethylene (Miralax) 17 Gm Pack PEG 08/02/23 08:59 Not Given DAILY CRYSTAL Senna/Docusate Sodium 1 tab 07/03/23 09:00 07/06/23 08:24 Docusate Sodium/Senna 50/8.6mg Tab PEG 08/02/23 08:59 1 tab QAM CRYSTAL Administration Sodium Chloride 4 ml 07/02/23 19:00 07/06/23 07:30 Sodium Chlor 7% 4 Ml Neb NEB 08/01/23 18:59 Not Given BIDR CRYSTAL (1) Aspiration pneumonia Laterality: right Lung location: lower lobe of lung
[2023-07-06] MEDS: TUBE FEEDING WATER FLUSH JT SCH (13:59)
--- NOTE | 2023-07-07 13:42 | Hospitalist Progress Note ---
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 Patient at [facility] as of 06/30, after stay at [facility] s/p discharge from admission at [facility]. Circumstances of dislodged trach are unclear. Patient was admitted to [facility] on 05/26/2023 for stridor. 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 This was performed by Dr. De La Rosa . First trach change performed 06/03/2023. Received quad shot radiation therapy on 06/09/23 and 06/10/23. * Discussion at [place] Tumor board was had discussing the complexity of patient's case: " On imaging, the mass appears locally destructive and erosive. The lesion seems to abutting the thyroid cartilage and there is possible chondronecrosis of the cricoid (versus tumor necrosis). There is also soft tissue thickening of the esophagus. Again, we discussed that there are no imaging findings suggestive of metastatic disease. A surgical option for this patient would require at least a total laryngectomy, esophagectomy with gastric pull up, which could be challenging for the patient to undergo given his comorbidities and overall health. After multidisciplinary discussion, the official tumor board recommendation was for inpatient radiation oncology, medical oncology, and palliative medicine consultation." Summation of recent admission: Diagnosis of SCC of hypopharynx: Palliative Care evaluated patient on 06/[address] [facility]: "does not eat by mouth, uses feeding tube" -Was with decision making capacity Oncology met with patient on 05/26: -Declined surgery, wishes to pursue radiation Heme/Onc appt 07/29 Radiation Oncology Met with patient on 06/05: -Poor ECOG, not candidate for combo Chemo/XRT -Planning for "shot radiation" "Per chart 06/25 communication report: Patient is scheduled for Quad shot RT on 07/01/23 and 07/02/23. Rad/Onc staff has been attempting to contact patient regard RT appointments. Called both patient and patient's spouse's phones, No answer. Left messages for patient and patient's spouse to return my call. Called [facility] and spoke with Juany. Patient is still a patient at [facility] and will be tentatively discharged on 06/30/23. Juany will let patient know Rad/Onc staff is attempting to contact patient. Rad/Onc nursing phone number provided. Speech evaluated patient Allow ice chips and sips of water in moderation w/good oral care for comfort and to facilitate overall swallow function regarding PO intake moving forward w/this pt Patient otherwise doing ok medically at this standpoint. Patient to transition to inpatient status as placement is ongoing question with family as is concerned with ability to manage patient. Referral made to LTAC via CM; however, given low level care (not PCU/ICU status) patient not candidate for LTAC Today, patient still undergoing secretion/mucus clearance and aggressive chest PT. Continues with Augmentin day 09/25 Patient reports feeling much improved, but still requires notable aggressive suctioning and trach care. expresses notable distress with care for patient and worry over treatment/care at home. Ordered PT/OT for assessment, which revealed candidacy for rehab. 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 -Replaced with smaller caliber, not likely candidate for pasey-savannah 2/[address] -Recommend ENT follow up to see if larger caliber can be placed -Remains stable at this time #Aspiration pneumonia #Copious secretions from trach #Recurrent laryngeal cancer ongoing radiation Rx #MDRO Pseudomonas, colonizer #PEG tube placement No sepsis for now Continue TF Patient with intent to pursue radiation, will continue NPO status with ice/lazo, Oral care and aspiration precautions Pulmonary on consult to aid in management of secretions given smaller caliber tube -Reviewed Pulm notes/recommendations -Mucomyst nebs, chest PT, and hypertonic saline nebs -Continue Amoxicillin/clav for 10 days EOT 07/13 -ID consult given pseudomonas in trach sputum culture--given clinical improvement, escalate abx? colonization? -Discussed with Dr. Doss via [employer]--MDRO pseudomonas likely colonization given clinical improvement #CAD status CABG/stent/PVD #PAF, patient NSR #hypertension, stable #hyperlipidemia, on statin Rx #hypothyroidism, TSH 6.2 on admission #Anemia of chronic disease, hemoglobin at baseline #DM2 on oral medications, well-controlled as of recent hemoglobin A1c of 6 last month #GERD, on PPI #past tobacco abuse DVT prophylaxis. Lovenox subcu DNR as per patient's prior directives. Discharge planning ongoing, LTACH declined, referral to rehab placed Admission and Anticipated Discharge Date Admission Date: July 03, 2023 Subjective Patient evaluated at [facility] Declined any acute needs at this time Feels like rehab would be appropriate and willing to go if that is an option Physical Exam Constitutional: WD/WN, vitals as above Respiratory: normal respiratory effort, lungs clear to auscultation occasional rhonchorous sounds, cleared with cough; clear trach site Cardiovascular: RRR, no murmur, no edema Gastrointestinal (Abdomen): normal bowel sounds, soft, nontender, no hep atosplenomegaly Results & Data Results & Data Vital Signs (Past 12 Hours) Vital Signs Temp Pulse Resp BP Pulse Ox O2 Del Method FiO2 07/07/23 08:26 36.6 C 76 14 107/64 100 Room Air 07/07/23 08:04 74 18 96 Trach Collar 28 Medications Administered Home Medications Medication Instructions Recorded Confirmed Last Taken levothyroxine 75 mcg tablet 75 mcg feeding tube QAM 04/26/19 07/01/23 07/01/23 metformin 1,000 mg tablet 1,000 mg feeding tube BID 04/26/19 07/01/23 07/01/23 pantoprazole 40 mg tablet,delayed 40 mg PO QAM 04/26/19 07/01/23 07/01/23 release amoxicillin 500 mg tablet 2,000 mg PO UD PRN prior to dental 08/16/19 07/01/23 Unknown appointment Lactobacillus rhamnosus GG 10 1 cap feeding tube DAILY 07/01/23 07/01/23 07/01/23 billion cell capsule Pantoprazole Liquid 40 mg G-tube DAILY 07/01/23 07/01/23 07/01/23 acetaminophen 325 mg tablet 650 mg feeding tube Q6H PRN 07/01/23 07/01/23 Unknown (Tylenol) PAIN/FEVER >101 aspirin 81 mg chewable tablet 81 mg feeding tube DAILY 07/01/23 07/01/23 07/01/23 atorvastatin 10 mg tablet 10 mg feeding tube HS 07/01/23 07/01/23 06/30/23 chlorhexidine gluconate 0.12 % 15 ml buccal BID 07/01/23 07/01/23 07/01/23 08:00 mouthwash doxazosin 2 mg tablet 2 mg feeding tube HS 07/01/23 07/01/23 06/30/23 nutritional supplements 0.06 250 ea feeding tube 5XD 07/01/23 07/01/23 07/01/23 gram-1.5 kcal/mL oral liquid (Osmolite 1.5 Yonis) trolamine salicylate 10 % topical 1 applic topical BID 07/01/23 07/01/23 07/01/23 08:00 cream Active Medications Generic Name Dose Route Start Last Admin Trade Name Freq PRN Reason Stop Dose Admin Acetylcysteine 5 ml 07/02/23 18:00 07/07/23 07:55 Acetylcysteine 20% Inhal Soln 4ml Dispensed By Resp. INH 08/01/23 17:59 Not Given Q12R CRYSTAL Albuterol 3 ml 07/02/23 19:00 07/07/23 07:54 Albut/Ipratrop 3mg/0.5mg Neb 3 Ml Vial NEB 08/01/23 18:59 3 ml BIDR CRYSTAL Administration Protocol Amoxicillin/Clavulanate Potassium 875 mg 07/03/23 09:00 07/07/23 08:21 Amoxicillin/Clavulanate Susp 400/57 Mg 5 Ml Btl GT 07/10/23 08:59 875 mg BID CRYSTAL Administration Protocol Aspirin 81 mg 07/02/23 09:00 07/07/23 08:19 Aspirin 81 Mg Chew PEG 08/01/23 08:59 81 mg DAILY CRYSTAL Administration Atorvastatin Calcium 10 mg 07/02/23 21:00 07/06/23 20:45 Atorvastatin 10 Mg Tab PEG 08/01/23 20:59 10 mg HS CRYSTAL Administration Chlorhexidine Gluconate 15 ml 07/02/23 09:00 07/07/23 08:19 Chlorhexidine Gluconate 0.12% 480 Ml MT 08/01/23 08:59 15 ml BID CRYSTAL Administration Doxazosin Mesylate 2 mg 07/02/23 21:00 07/06/23 20:44 Doxazosin Mesylate Tab 2 Mg Tab PEG 08/01/23 20:59 2 mg HS CRYSTAL Administration Enoxaparin Sodium 40 mg 07/06/23 09:00 07/07/23 08:18 Enoxaparin Inj 40 Mg/0.4 Ml Syr SQ 08/05/23 08:59 40 mg QAM CRYSTAL Administration Lactobacillus Acidophilus 1 gm 07/02/23 09:00 07/07/23 08:18 Lactobacillus Acidophilus 1 Gm Pack PEG 08/01/23 08:59 1 gm DAILY CRYSTAL Administration Lansoprazole 30 mg 07/02/23 09:00 07/07/23 08:18 Lansoprazole 30 Mg Soltab PEG 08/01/23 08:59 30 mg QAM CRYSTAL Administration Protocol Levothyroxine Sodium 75 mcg 07/02/23 06:30 07/07/23 06:19 Levothyroxine Sodium 75 Mcg Tablet PEG 08/01/23 06:29 75 mcg DAILYBB CRYSTAL Administration Polyethylene Glycol 17 gm 07/03/23 09:00 07/07/23 08:19 Polyethylene (Miralax) 17 Gm Pack PEG 08/02/23 08:59 17 gm DAILY CRYSTAL Administration Senna/Docusate Sodium 1 tab 07/03/23 09:00 07/07/23 08:18 Docusate Sodium/Senna 50/8.6mg Tab PEG 08/02/23 08:59 1 tab QAM CRYSTAL Administration Sodium Chloride 4 ml 07/02/23 19:00 07/07/23 07:54 Sodium Chlor 7% 4 Ml Neb NEB 08/01/23 18:59 4 ml BIDR CRYSTAL Administration Sterile Water 175 ml 07/06/23 11:00 07/07/23 12:00 Tube Feeding Water Flush JT 08/05/23 10:59 175 ml Q4H CRYSTAL Administration (1) Aspiration pneumonia Laterality: right Lung location: lower lobe of lung
--- NOTE | 2023-07-07 14:58 | Pulmonology Progress Note ---
Date of Service July 07, 2023 Assessment & Plan (1) Aspiration pneumonia: Laterality: right Lung location: lower lobe of lung (2) Complication of tracheostomy tube: (3) Pleural effusion: Plan CT chest 07/01/2023 personally reviewed: Minimal tree-in-bud opacities appreciated in the right lower lobe Small right-sided pleural effusion with fluid in the fissure Motion degraded study with mosaicism appreciated in the upper lobes No significant mediastinal lymphadenopathy -- Trach dependent respiratory failure Trach was dislodged, in the ER size 4 uncuffed was placed, patient usually has size 6 Would recommend to follow-up with outpatient ENT to resize him to 6 or what ever they think is reasonable for the patient. --Right lower lobe pneumonia Likely aspiration Procalcitonin negative BNP 274 -- History of recurrent laryngeal cancer, squamous cell carcinoma S/p tracheostomy May 2023. Patient refused surgery and chemotherapy opted for palliative radiation Plan: Continue with antibiotic for total of 10 days Continue with 7% saline nebulized along with Mucomyst and chest PT Recommend nebulized 7% as well as Mucomyst along with nebulized albuterol even at home. Continue aggressive suctioning Patient is not using chest vest therapy. Advised him to use it at least once a day given the rhonchi which is still here on physical exam today Case was discussed with primary team No further recommendation from pulmonary perspective, will sign off Please call directly with any questions Please note the above document was generated using voice recognition software. It may contain grammatical, syntax or spelling errors.Any formal questions or concerns about the content, text or information contained within the body of this dictation should be directly addressed to the provider for clarification. Admission and Anticipated Discharge Date Admission Date: July 03, 2023 Subjective Patient seen and examined at bedside. No acute distress. 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 Denied any chest pain, coughing is decreased in amount. Phlegm is easier to bring up. No hemoptysis Has not been using chest vest therapy I did recommend him to use it at least once a day Review of Systems 2 Review of Systems: All systems reviewed & are unremarkable except as noted in Subjective Physical Exam 2 Physical Exam: Constitutional: No acute distress HEENT: EOMI, PERRLA, size 4 uncuffed trach Respiratory system: Decreased air entry bilaterally, no wheeze, positive rhonchi , positive crackles bilaterally, right greater than left CVS: S1-S2 positive, no murmurs or gallops Abdomen: Soft, nontender, nondistended, positive bowel sounds x4, positive PEG Extremities: +2 pulses bilaterally radialis/ dorsalis pedis Neuro: Awake alert oriented x3 Psych: Normal mood and affect G/U: No Jenkins Skin: no rashes, warm and dry Lymphatic: no cervical or axillary lymphadenopathy Results & Data Results & Data Vital Signs (Past 12 Hours) Vital Signs Temp Pulse Resp BP Pulse Ox O2 Del Method FiO2 07/07/23 08:26 36.6 C 76 14 107/64 100 Room Air 07/07/23 08:04 74 18 96 Trach Collar 28 Laboratory Results 07/06/23 05:45 07/06/23 05:45 PG Care Time/CCT Total # of Minutes Spent Total Time Spent with Patient: Total time spent is greater than 50% in coordination of care (as documented) at patient's floor/unit and/or counseling patient: Coding Level of Care Code 80794 SUB INP/OBS CARE 2/35MIN Diagnoses Aspiration pneumonia J69.0 Laterality: right Lung location: lower lobe of lung Complication of tracheostomy tube J95.00 Pleural effusion J90
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
[2023-07-08 07:58] LABS: Hematocrit (blood only) 26.9 % (42.0-52.0); Hemoglobin 8.8 g/dl (14.0-18.0); Mean Corpuscular Hemoglobin 30.8 pg (25.0-34.0); Mean Corpuscular Hgb Conc 32.7 g/dL (32.0-36.0); Mean Corpuscular Volume 94.1 fL (80.0-100.0); Mean Platelet Volume 9.2 fL (9.4-12.4); Platelet Count 230 K/uL (130-400); RDW Coefficient of Variation 15.5 % (11.5-14.5); RDW Standard Deviation 53.7 fL (36.4-46.3); Red Blood Count 2.86 M/uL (4.70-6.10); White Blood Count 6.42 K/ul (4.8-10.8)
[2023-07-08 08:09] LABS: BUN Creatinine Ratio 45.3 (10-20); Calcium 8.9 mg/dl (8.6-10.3); Creatinine Clr Calc Pharmacy 110.1 ml/min; Est GFR (African American) 115.8 ml/min; Est GFR (Non-African American) 99.9 ml/min; Potassium 4.2 mmol/L (3.5-5.1)
--- NOTE | 2023-07-08 08:57 | Communication Note ---
Date of Service: July 08, 2023 Last night patient pulled out trach as he told nursing staff it was hurting. Code radha was called and trach was put back in place and did ok.
--- NOTE | 2023-07-08 12:35 | Hospitalist Progress Note ---
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 Patient at [facility] as of 06/30, after stay at [facility] s/p discharge from admission at [facility]. Circumstances of dislodged trach are unclear. Patient was admitted to [facility] on 05/26/2023 for stridor. 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 This was performed by Dr. De La Rosa . First trach change performed 06/03/2023. Received quad shot radiation therapy on 06/09/23 and 06/10/23. * Discussion at [facility] Tumor board was had discussing the complexity of patient's case: " On imaging, the mass appears locally destructive and erosive. The lesion seems to abutting the thyroid cartilage and there is possible chondronecrosis of the cricoid (versus tumor necrosis). There is also soft tissue thickening of the esophagus. Again, we discussed that there are no imaging findings suggestive of metastatic disease. A surgical option for this patient would require at least a total laryngectomy, esophagectomy with gastric pull up, which could be challenging for the patient to undergo given his comorbidities and overall health. After multidisciplinary discussion, the official tumor board recommendation was for inpatient radiation oncology, medical oncology, and palliative medicine consultation." Summation of recent admission: Diagnosis of SCC of hypopharynx: Palliative Care evaluated patient on 06/04 at [facility]: "does not eat by mouth, uses feeding tube" -Was with decision making capacity Oncology met with patient on 05/26: -Declined surgery, wishes to pursue radiation Heme/Onc appt 07/29 Radiation Oncology Met with patient on 06/05: -Poor ECOG, not candidate for combo Chemo/XRT -Planning for "shot radiation" "Per chart 06/25 communication report: Patient is scheduled for Quad shot RT on 07/01/23 and 07/02/23. Rad/Onc staff has been attempting to contact patient regard RT appointments. Called both patient and patient's spouse's phones, No answer. Left messages for patient and patient's spouse to return my call. Called [facility] and spoke with Juany. Patient is still a patient at [facility] and will be tentatively discharged on 06/30/23. Juany will let patient know Rad/Onc staff is attempting to contact patient. Rad/Onc nursing phone number provided. Speech evaluated patient Allow ice chips and sips of water in moderation w/good oral care for comfort and to facilitate overall swallow function regarding PO intake moving forward w/this pt Patient otherwise doing ok medically at this standpoint. Patient to transition to inpatient status as placement is ongoing question with family as is concerned with ability to manage patient. Referral made to LTAC via CM; however, given low level care (not PCU/ICU status) patient not candidate for LTAC Today, patient still undergoing secretion/mucus clearance and aggressive chest PT. Continues with Augmentin day 10/26 Patient reports feeling much improved, but still requires notable aggressive suctioning and trach care. expresses notable distress with care for patient and worry over treatment/care at home. Ordered PT/OT for assessment, which revealed candidacy for rehab. 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 -Replaced with smaller caliber, not likely candidate for pasey-savannah 2/[address] -Recommend ENT follow up to see if larger caliber can be placed -Remains stable at this time #Aspiration pneumonia #Copious secretions from trach c/f tracheitis #Recurrent laryngeal cancer ongoing radiation Rx #MDRO Pseudomonas, colonizer #PEG tube placement No sepsis for now Continue TF Patient with intent to pursue radiation, will continue NPO status with ice /lazo, Oral care and aspiration precautions Pulmonary on consult to aid in management of secretions given smaller caliber tube -Reviewed Pulm notes/recommendations -Mucomyst nebs, chest PT, and hypertonic saline nebs -Continued Amoxicillin/clav up to 07/07 -ID consult given pseudomonas in trach sputum culture--given clinical improvement, escalate abx? colonization? -Discussed with Dr. Doss via [employer] on 07/06/2022-MDRO pseudomonas likely colonization given clinical improvement -New infectious disease recommendations from Dr. Matos who officially responded to consult and recommended treatment for Trachitis Given patients clinical status/immunocompromised nature iso malignancy, will treat IV Cefepime 1 g q6 hours x 7-10 days. EOT 07/15 #CAD status CABG/stent/PVD #PAF, patient NSR #hypertension, stable #hyperlipidemia, on statin Rx #hypothyroidism, TSH 6.2 on admission #Anemia of chronic disease, hemoglobin at baseline #DM2 on oral medications, well-controlled as of recent hemoglobin A1c of 6 last month #GERD, on PPI #past tobacco abuse DVT prophylaxis. Lovenox subcu DNR as per patient's prior directives. Discharge planning ongoing, LTACH declined, referral to rehab placed Admission and Anticipated Discharge Date Admission Date: July 03, 2023 Subjective Patient evaluated at bedside Denies any acute concerns this morning. Reports feeling well over all. Physical Exam Constitutional: WD/WN, vitals as above Respiratory: Trach still with some mucus/secretions Gastrointestinal (Abdomen): normal bowel sounds, soft, nontender, no hepatosplenomegaly Results & Data Results & Data Vital Signs (Past 12 Hours) Vital Signs Temp Pulse Resp BP Pulse Ox O2 Del Method O2 Flow Rate 07/08/23 11:33 36.4 C L 82 16 106/61 100 Trach Collar 07/08/23 08:00 36.7 C 81 14 114/68 100 Trach Collar 07/08/23 07:12 68 18 92 Trach Collar 6 FiO2 07/08/23 11:33 07/08/23 08:00 07/08/23 07:12 28 Laboratory Results Short CBC 07/08/23 Range/Units 07:33 WBC 6.42 (4.8-10.8) K/ul Hgb 8.8 L (14.0-18.0) g/dl Hct 26.9 L (42.0-52.0) % Plt Count 230 (130-400) K/uL BMP 07/08/23 07:33 Sodium 135 L Potassium 4.2 Chloride 100 Carbon Dioxide 30 BUN 24 H Creatinine 0.53 L Glucose 201 H Calcium 8.9 Medications Administered Home Medications Medication Instructions Recorded Confirmed Last Taken levothyroxine 75 mcg tablet 75 mcg feeding tube QAM 04/26/19 07/01/23 07/01/23 metformin 1,000 mg tablet 1,000 mg feeding tube BID 04/26/19 07/01/23 07/01/23 pantoprazole 40 mg tablet,delayed 40 mg PO QAM 04/26/19 07/01/23 07/01/23 release amoxicillin 500 mg tablet 2,000 mg PO UD PRN prior to dental 08/16/19 07/01/23 Unknown appointment Lactobacillus rhamnosus GG 10 1 cap feeding tube DAILY 07/01/23 07/01/23 07/01/23 billion cell capsule Pantoprazole Liquid 40 mg G-tube DAILY 07/01/23 07/01/23 07/01/23 acetaminophen 325 mg tablet 650 mg feeding tube Q6H PRN 07/01/23 07/01/23 Unknown (Tylenol) PAIN/FEVER >101 aspirin 81 mg chewable tablet 81 mg feeding tube DAILY 07/01/23 07/01/23 07/01/23 atorvastatin 10 mg tablet 10 mg feeding tube HS 07/01/23 07/01/23 06/30/23 chlorhexidine gluconate 0.12 % 15 ml buccal BID 07/01/23 07/01/23 07/01/23 08:00 mouthwash doxazosin 2 mg tablet 2 mg feeding tube HS 07/01/23 07/01/23 06/30/23 nutritional supplements 0.06 250 ea feeding tube 5XD 07/01/23 07/01/23 07/01/23 gram-1.5 kcal/mL oral liquid (Osmolite 1.5 Yonis) trolamine salicylate 10 % topical 1 applic topical BID 07/01/23 07/01/23 07/01/23 08:00 cream Active Medications Generic Name Dose Route Start Last Admin Trade Name Freq PRN Reason Stop Dose Admin Acetylcysteine 5 ml 07/02/23 18:00 07/08/23 07:12 Acetylcysteine 20% Inhal Soln 4ml Dispensed By Resp. INH 08/01/23 17:59 5 ml Q12R CRYSTAL Administration Albuterol 3 ml 07/02/23 19:00 07/08/23 07:11 Albut/Ipratrop 3mg/0.5mg Neb 3 Ml Vial NEB 08/01/23 18:59 3 ml BIDR CRYSTAL Administration Protocol Aspirin 81 mg 07/02/23 09:00 07/08/23 09:00 Aspirin 81 Mg Chew PEG 08/01/23 08:59 81 mg DAILY CRYSTAL Administration Atorvastatin Calcium 10 mg 07/02/23 21:00 07/07/23 20:57 Atorvastatin 10 Mg Tab PEG 08/01/23 20:59 10 mg HS CRYSTAL Administration Chlorhexidine Gluconate 15 ml 07/02/23 09:00 07/08/23 09:00 Chlorhexidine Gluconate 0.12% 480 Ml MT 08/01/23 08:59 15 ml BID CRYSTAL Administration Doxazosin Mesylate 2 mg 07/02/23 21:00 07/07/23 20:57 Doxazosin Mesylate Tab 2 Mg Tab PEG 08/01/23 20:59 2 mg HS CRYSTAL Administration Enoxaparin Sodium 40 mg 07/06/23 09:00 07/08/23 09:00 Enoxaparin Inj 40 Mg/0.4 Ml Syr SQ 08/05/23 08:59 40 mg QAM CRYSTAL Administration Lactobacillus Acidophilus 1 gm 07/02/23 09:00 07/08/23 09:00 Lactobacillus Acidophilus 1 Gm Pack PEG 08/01/23 08:59 1 gm DAILY CRYSTAL Administration Lansoprazole 30 mg 07/02/23 09:00 07/08/23 09:00 Lansoprazole 30 Mg Soltab PEG 08/01/23 08:59 30 mg QAM CRYSTAL Administration Protocol Levothyroxine Sodium 75 mcg 07/02/23 06:30 07/08/23 05:56 Levothyroxine Sodium 75 Mcg Tablet PEG 08/01/23 06:29 75 mcg DAILYBB CRYSTAL Administration Polyethylene Glycol 17 gm 07/03/23 09:00 07/08/23 09:00 Polyethylene (Miralax) 17 Gm Pack PEG 08/02/23 08:59 17 gm DAILY CRYSTAL Administration Senna/Docusate Sodium 1 tab 07/03/23 09:00 07/08/23 09:00 Docusate Sodium/Senna 50/8.6mg Tab PEG 08/02/23 08:59 1 tab QAM CRYSTAL Administration Sodium Chloride 4 ml 07/02/23 19:00 07/08/23 07:12 Sodium Chlor 7% 4 Ml Neb NEB 08/01/23 18:59 4 ml BIDR CRYSTAL Administration Sterile Water 175 ml 07/06/23 11:00 07/08/23 11:55 Tube Feeding Water Flush JT 08/05/23 10:59 175 ml Q4H CRYSTAL Administration (1) Aspiration pneumonia Laterality: right Lung location: lower lobe of lung
[2023-07-08] MEDS: CEFEPIME 2,000 MG in SYRINGE 0 ML IV SCH (14:44)
[2023-07-09] MEDS: NUTREN LIQD 2.0 1,000 ML BAG JT SCH (03:18)
--- NOTE | 2023-07-09 17:48 | Hospitalist Progress Note ---
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 Patient at [facility] as of 06/30, after stay at [facility] s/p discharge from admission at [facility]. Circumstances of dislodged trach are unclear. Patient was admitted to [facility] on 05/26/2023 for stridor. 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 This was performed by Dr. De La Rosa . First trach change performed 06/03/2023. Received quad shot radiation therapy on 06/09/23 and 06/10/23. * Discussion at [place] Tumor board was had discussing the complexity of patient's case: " On imaging, the mass appears locally destructive and erosive. The lesion seems to abutting the thyroid cartilage and there is possible chondronecrosis of the cricoid (versus tumor necrosis). There is also soft tissue thickening of the esophagus. Again, we discussed that there are no imaging findings suggestive of metastatic disease. A surgical option for this patient would require at least a total laryngectomy, esophagectomy with gastric pull up, which could be challenging for the patient to undergo given his comorbidities and overall health. After multidisciplinary discussion, the official tumor board recommendation was for inpatient radiation oncology, medical oncology, and palliative medicine consultation." Summation of recent admission: Diagnosis of SCC of hypopharynx: Palliative Care evaluated patient on 06/04 at [facility]: "does not eat by mouth, uses feeding tube" -Was with decision making capacity Oncology met with patient on 05/26: -Declined surgery, wishes to pursue radiation Heme/Onc appt 07/29 Radiation Oncology Met with patient on 06/05: -Poor ECOG, not candidate for combo Chemo/XRT -Planning for "shot radiation" "Per chart 06/25 communication report: Patient is scheduled for Quad shot RT on 07/01/23 and 07/02/23. Rad/Onc staff has been attempting to contact patient regard RT appointments. Called both patient and patient's spouse's phones, No answer. Left messages for patient and patient's spouse to return my call. Called [facility] and spoke with Juany. Patient is still a patient at [facility] and will be tentatively dis charged on 06/30/23. Juany will let patient know Rad/Onc staff is attempting to contact patient. Rad/Onc nursing phone number provided. Speech evaluated patient Allow ice chips and sips of water in moderation w/good oral care for comfort and to facilitate overall swallow function regarding PO intake moving forward w/this pt Patient otherwise doing ok medically at this standpoint. Patient to transition to inpatient status as placement is ongoing question with family as is concerned with ability to manage patient. Referral made to LTAC via CM; however, given low level care (not PCU/ICU status) patient not candidate for LTAC Today, patient still undergoing secretion/mucus clearance and aggressive chest PT. Continues with Augmentin day 10/26 Patient reports feeling much improved, but still requires notable aggressive suctioning and trach care. expresses notable distress with care for patient and worry over treatment/care at home. Ordered PT/OT for assessment, which revealed candidacy for rehab. 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 -Replaced with smaller caliber, not likely candidate for pasey-savannah 2/[address] -Recommend ENT follow up to see if larger caliber can be placed -Remains stable at this time #Aspiration pneumonia #Copious secretions from trach c/f tracheitis #Recurrent laryngeal cancer ongoing radiation Rx #MDRO Pseudomonas, colonizer #PEG tube placement No sepsis for now Continue TF Patient with intent to pursue radiation, will continue NPO status with ice/lazo, Oral care and aspiration precautions Pulmonary on consult to aid in management of secretions given smaller caliber tube -Reviewed Pulm notes/recommendations -Mucomyst nebs, chest PT, and hypertonic saline nebs -Continued Amoxicillin/clav up to 07/07 -ID consult given pseudomonas in trach sputum culture--given clinical improvement, escalate abx? colonization? -Discussed with Dr. Doss via [employer] on 07/06/2022-MDRO pseudomonas likely colonization given clinical improvement -New infectious disease recommendations from Dr. Matos who officially responded to consult and recommended treatment for Trachitis Given patients clinical status/immunocompromised nature iso malignancy, will treat IV Cefepime 1 g q6 hours x 7-10 days. EOT 07/15 #CAD status CABG/stent/PVD #PAF, patient NSR #hypertension, stable #hyperlipidemia, on statin Rx #hypothyroidism, TSH 6.2 on admission #Anemia of chronic disease, hemoglobin at baseline #DM2 on oral medications, well-controlled as of recent hemoglobin A1c of 6 last month #GERD, on PPI #past tobacco abuse DVT prophylaxis. Lovenox subcu DNR as per patient's prior directives. Discharge planning ongoing, LTACH declined, referral to rehab placed Admission and Anticipated Discharge Date Admission Date: July 03, 2023 Subjective Follow-up for tracheitis, etc. Seen resting in bed, sitting up, not in distress Comfortable States he feels fine overall Denies shortness of breath Still having oral secretions, frequent suctioning done by patient No other new symptoms Review of Systems Review of Systems: all noted and negative except for above Physical Exam Physical Exam: General- oriented x 3, not in distress, speaks in sentences with no effort or accessory muscle use Eyes- anicteric Neck- Trachea in good position, no surrounding erythema/edema/hematoma no JVD Lungs- clear breath sounds bilaterally, no rales/wheezes Heart- normal rate, regular rhythm; no murmurs Abdomen- normal bowel sounds, nondistended, soft, nontender PEG tube in place-good position, no bleeding or discharge Extremities- no pretibial edema, no calf tenderness Neuro- alert, oriented x 3; no gross focal neurologic deficits Skin- warm & dry Results & Data Results & Data Vital Signs (Past 12 Hours) Vital Signs Temp Pulse Resp BP Pulse Ox O2 Del Method O2 Flow Rate 07/09/23 14:34 36.8 C 78 16 107/65 100 Trach Collar 7 07/09/23 07:37 Oxymask 07/09/23 07:12 36.6 C 71 16 109/67 97 Trach Collar 6 07/09/23 07:05 90 18 99 Room Air all noted and reviewed including below (1) Aspiration pneumonia Laterality: right Lung location: lower lobe of lung
--- NOTE | 2023-07-10 17:08 | Hospitalist Progress Note ---
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 Patient at [facility] as of 06/30, after stay at [facility] s/p discharge from admission at [facility]. Circumstances of dislodged trach are unclear. Patient was admitted to [facility] on 05/26/2023 for stridor. 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 This was performed by Dr. De La Rosa . First trach change performed 06/03/2023. Received quad shot radiation therapy on 06/09/23 and 06/10/23. * Discussion at [place] Tumor board was had discussing the complexity of patient's case: " On imaging, the mass appears locally destructive and erosive. The lesion seems to abutting the thyroid cartilage and there is possible chondronecrosis of the cricoid (versus tumor necrosis). There is also soft tissue thickening of the esophagus. Again, we discussed that there are no imaging findings suggestive of metastatic disease. A surgical option for this patient would require at least a total laryngectomy, esophagectomy with gastric pull up, which could be challenging for the patient to undergo given his comorbidities and overall health. After multidisciplinary discussion, the official tumor board recommendation was for inpatient radiation oncology, medical oncology, and palliative medicine consultation." Summation of recent admission: Diagnosis of SCC of hypopharynx: Palliative Care evaluated patient on 06/04 at [facility]: "does not eat by mouth, uses feeding tube" -Was with decision making capacity Oncology met with patient on 05/26: -Declined surgery, wishes to pursue radiation Heme/Onc appt 07/29 Radiation Oncology Met with patient on 06/05: -Poor ECOG, not candidate for combo Chemo/XRT -Planning for "shot radiation" "Per chart 06/25 communication report: Patient is scheduled for Quad shot RT on 07/01/23 and 07/02/23. Rad/Onc staff has been attempting to contact patient regard RT appointments. Called both patient and patient's spouse's phones, No answer. Left messages for patient and patient's spouse to return my call. Called [facility] and spoke with Juany. Patient is still a patient at [facility] and will be tentatively discharged on 06/30/23. Juany will let patient know Rad/Onc staff is attempting to contact patient. Rad/Onc nursing phone number provided. Speech evaluated patient Allow ice chips and sips of water in moderation w/good oral care for comfort and to facilitate overall swallow function regarding PO intake moving forward w/this pt Patient otherwise doing ok medically at this standpoint. Patient to transition t o inpatient status as placement is ongoing question with family as is concerned with ability to manage patient. Referral made to LTAC via CM; however, given low level care (not PCU/ICU status) patient not candidate for LTAC Today, patient still undergoing secretion/mucus clearance and aggressive chest PT. Continues with Augmentin day 10/26 Patient reports feeling much improved, but still requires notable aggressive suctioning and trach care. expresses notable distress with care for patient and worry over treatment/care at home. Ordered PT/OT for assessment, which revealed candidacy for rehab. 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 -Replaced with smaller caliber, not likely candidate for pasey-savannah 2/[address] -Recommend ENT follow up to see if larger caliber can be placed -Remains stable at this time #Aspiration pneumonia #Copious secretions from trach c/f tracheitis #Recurrent laryngeal cancer ongoing radiation Rx #MDRO Pseudomonas, colonizer #PEG tube placement No sepsis for now Continue TF Patient with intent to pursue radiation, will continue NPO status with ice/lazo, Oral care and aspiration precautions Pulmonary on consult to aid in management of secretions given smaller caliber tube -Reviewed Pulm notes/recommendations -Mucomyst nebs, chest PT, and hypertonic saline nebs -Continued Amoxicillin/clav up to 07/07 -ID consult given pseudomonas in trach sputum culture--given clinical improvement, escalate abx? colonization? -Discussed with Dr. Doss via [employer] on 07/06/2022-MDRO pseudomonas likely colonization given clinical improvement -New infectious disease recommendations from Dr. Matos who officially responded to consult and recommended treatment for Trachitis Given patients clinical status/immunocompromised nature iso malignancy, will treat IV Cefepime 1 g q6 hours x 7-10 days. EOT 07/15 #CAD status CABG/stent/PVD #PAF, patient NSR #hypertension, stable #hyperlipidemia, on statin Rx #hypothyroidism, TSH 6.2 on admission #Anemia of chronic disease, hemoglobin at baseline #DM2 on oral medications, well-controlled as of recent hemoglobin A1c of 6 last month #GERD, on PPI #past tobacco abuse DVT prophylaxis. Lovenox subcu DNR as per patient's prior directives. Discharge planning ongoing, LTACH declined, referral to rehab placed Admission and Anticipated Discharge Date Admission Date: July 03, 2023 Subjective Follow-up for tracheitis, etc. Seen resting in bed, comfortable, not in distress States he continues to feel fine overall Tracheal secretions clearing up No shortness of breath, chest pain, fevers or chills No other new symptoms Review of Systems Review of Systems: all noted and negative except for above Physical Exam Physical Exam: General- oriented x 3, not in distress, speaks in sentences with no effort or accessory muscle use Eyes- anicteric Neck- no JVD Lungs-mild rhonchi at the bases, possible from tracheal secretions? Heart- normal rate, regular rhythm; no murmurs Abdomen- normal bowel sounds, nondistended, soft, nontender Extremities- no pretibial edema, no calf tenderness Neuro- alert, oriented x 3; no gross focal neurologic deficits Skin- warm & dry Results & Data Results & Data Vital Signs (Past 12 Hours) Vital Signs Temp Pulse Resp BP BP Pulse Ox O2 Del Method 07/10/23 16:02 36.5 C 66 18 103/45 L 99 Trach Collar 07/10/23 10:42 36.6 C 80 16 95/63 L 97 Trach Collar 07/10/23 09:22 Trach Collar 07/10/23 07:57 20 98 Trach Collar 07/10/23 07:46 36.3 C L 81 92/57 L 98 Trach Collar O2 Flow Rate FiO2 07/10/23 16:02 6 02/22/24 10:42 07/10/23 09:22 6 07/10/23 07:57 28 07/10/23 07:46 (1) Aspiration pneumonia Laterality: right Lung location: lower lobe of lung
[2023-07-10] MEDS: LACTULOSE SYRUP 20 GM/30 ML UDC PO ONE (17:29)
[2023-07-11 07:44] LABS: Creatinine Clr Calc Pharmacy 104.2 ml/min; Est GFR (African American) 113.2 ml/min; Est GFR (Non-African American) 97.7 ml/min
--- NOTE | 2023-07-11 11:29 | XRay Report ---
XR chest 1V portable CLINICAL HISTORY: b/l crackles COMPARISON STUDY: Chest radiograph and chest CT July 01, 2023. FINDINGS: There are median sternotomy wires, mediastinal surgical clips and a tracheostomy tube. No p neumothorax is present. A small right pleural effusion is noted, including fluid along the major fiss ure. There is mild interstitial thickening. Cardiomediastinal silhouette is stable. Skinfold projects over the left chest. IMPRESSION: 1. Mild interstitial thickening. This may reflect an infectious process or pulmonary edema. No consol idation. 2. No significant change in a small right pleural effusion, including fluid along the major fissure. ACT 112: Negative or not required by law. Electronically signed by: Tyler Thorne M.D. 07/11/2023 11:28 AM
--- NOTE | 2023-07-11 15:21 | Hospitalist Progress Note ---
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 Patient at [facility] as of 06/30, after stay at [facility] s/p discharge from admission at [facility]. Circumstances of dislodged trach are unclear. Patient was admitted to [facility] on 05/26/2023 for stridor. 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 This was performed by Dr. De La Rosa . First trach change performed 06/03/2023. Received quad shot radiation therapy on 06/09/23 and 06/10/23. * Discussion at [facility] board was had discussing the complexity of patient's case: " On imaging, the mass appears locally destructive and erosive. The lesion seems to abutting the thyroid cartilage and there is possible chondronecrosis of the cricoid (versus tumor necrosis). There is also soft tissue thickening of the esophagus. Again, we discussed that there are no imaging findings suggestive of metastatic disease. A surgical option for this patient would require at least a total laryngectomy, esophagectomy with gastric pull up, which could be challenging for the patient to undergo given his comorbidities and overall health. After multidisciplinary discussion, the official tumor board recommendation was for inpatient radiation oncology, medical oncology, and palliative medicine consultation." Summation of recent admission: Diagnosis of SCC of hypopharynx: Palliative Care evaluated patient on 06/04 at [facility]: "does not eat by mouth, uses feeding tube" -Was with decision making capacity Oncology met with patient on 05/26: -Declined surgery, wishes to pursue radiation Heme/Onc appt 07/29 Radiation Oncology Met with patient on 06/05: -Poor ECOG, not candidate for combo Chemo/XRT -Planning for "shot radiation" "Per chart 06/25 communication report: Patient is scheduled for Quad shot RT on 07/01/23 and 07/02/23. Rad/Onc staff has been attempting to contact patient regard RT appointments. Called both patient and patient's spouse's phones, No answer. Left messages for patient and patient's spouse to return my call. Called [facility] and spoke with Juany. Patient is still a patient at [facility] and will be tentatively discharged on 06/30/23. Juany will let patient know Rad/Onc staff is attempting to contact patient. Rad/Onc nursing phone number provided. Speech evaluated patient Allow ice chips and sips of water in moderation w/good oral care for comfort and to facilitate overall swallow function regarding PO intake moving forward w/this pt Noted to have bilateral rhonchi on 07/10 CXR with mild interstitial thickening. This may reflect an infectious process or pulmonary edema. No consolidation. 2.No significant change in a small right pleural effusion, including fluid along the major fissure. Continue self- suctioning, aggressive chest PT, hypertonic nebs Per ID recommendations from Dr. Matos, who officially responded to consult, recommended treatment for Trachitis Given patients clinical status/immunocompromised nature iso malignancy, will treat IV Cefepime 1 g q6 hours x 7-10 days. 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 -Replaced with smaller caliber, not likely candidate for pasey-savannah 2/[address] -Recommend ENT follow up to see if larger caliber can be placed -Remains stable at this time #Aspiration pneumonia #Copious secretions from trach c/f tracheitis #Recurrent laryngeal cancer ongoing radiation Rx #MDRO Pseudomonas, colonizer #PEG tube placement No sepsis for now Continue TF Patient with intent to pursue radiation, will continue NPO status with ice/lazo, Oral care and aspiration precautions Pulmonary on consult to aid in management of secretions given smaller caliber tube -Reviewed Pulm notes/recommendations -Mucomyst nebs, chest PT, and hypertonic saline nebs -Continued Amoxicillin/clav up to 07/07 -ID consult given pseudomonas in trach sputum culture--given clinical improvement, escalate abx? colonization? -Discussed with Dr. Doss via [employer] on 07/06/2022-MDRO pseudomonas likely colonization given clinical improvement -New infectious disease recommendations from Dr. Matos who officially responded to consult and recommended treatment for Trachitis Given patients clinical status/immunocompromised nature iso malignancy, will treat IV Cefepime 1 g q6 hours x 7-10 days. EOT 07/15 #CAD status CABG/stent/PVD #PAF, patient NSR #hypertension, stable #hyperlipidemia, on statin Rx #hypothyroidism, TSH 6.2 on admission #Anemia of chronic disease, hemoglobin at baseline #DM2 on oral medications, well-controlled as of recent hemoglobin A1c of 6 last month #GERD, on PPI #past tobacco abuse DVT prophylaxis. Lovenox subcu DNR as per patient's prior directives. Discharge planning ongoing, LTACH declined, referral to rehab placed and accepted at [facility] with bed likely Fri/ Patient seen in collaboration with Dr. Palencia. Please see addendum. I spent a total of 50 minutes coordinating, documenting, and providing care for this patient excluding time spent in the performance of separately billed services. Admission and Anticipated Discharge Date Admission Date: July 03, 2023 Supervising Physician Co-Signing Physician Notes Attending Addendum: delayed entry date of service noted above care coordinated with NARAYAN aNdege Anderson please refer to her notes for full details, I agree with her notes patient seen and examined, records reviewed by myself as well Concur with salient points upon review of preceding documentation I take responsibility for plan of care. Aleksey Palencia MD Subjective Seen in 363-1 in follow-up for tracheitis, etc. Seen resting in a bedside chair comfortably, not in distress. No acute events overnight. Self-suctioning tracheal secretions but they are clearing up. No F/C, lightheadedness, CP, SOB, N/V, abd pain, dysuira, diarrhea or constipation. Last bowel movement was last night. Review of Systems Review of Systems: At least ten systems reviewed and negative except as noted in the HPI. Physical Exam Physical Exam: Gen: WD/WN, NAD, thin elderly male, sitting in bedside chair, A&Ox3 HEENT: Normocephalic, atraumatic, conjunctivae moist, sclerae anicteric, mucous membranes moist, +trach Lung: Scattered rhonchi throughout, no wheezing Heart: Regular rate, regular rhythm, no murmurs, rubs, or gallops Abdomen: Soft, NT, ND +BS x 4 Extremities: no edema Skin: Warm, no rash Results & Data Results & Data Vital Signs (Past 12 Hours) Vital Signs Temp Pulse Resp BP Pulse Ox O2 Del Method FiO2 07/11/23 09:29 Room Air 07/11/23 07:35 88 17 99 Room Air 21 07/11/23 07:21 36.8 C 76 16 89/59 L 95 Room Air, Trach Collar Laboratory Results BMP 07/11/23 07:08 Creatinine 0.56 L Diagnostic Findings Chest X-Ray 07/01/23 19:19 SINGLE VIEW CHEST CLINICAL HISTORY: Tracheostomy placement. FINDINGS: 2 AP, portable, upright chest radiograph is are compared to study dated 07/30/2019. Correlation is made with chest CT performed the same date 07/01/2023. A tracheostomy is in place. The patient is status post midline sternotomy. The heart is enlarged and noting atherosclerotic calcification of the thoracic aorta. The pulmonary vasculature is nondistended congested. Chronic interstitial thickening is similar to previous. There is chronic elevation of the right hemidiaphragm noting bibasilar scarring/atelectasis. Airspace opacities in the right mid lung are correspond to fluid along the major fissure when correlated with a recent CT scan. There is a small pleural effusion at the right lung base. Airspace consolidation is seen at the right lung base. No pneumothorax is seen. The skeletal structures are osteopenic. There are chronic/healed left-sided rib fractures. Degenerative change is noted in the shoulders and spine. Cholecystectomy clips and a gastrostomy tube are seen in t he upper abdomen. IMPRESSION: 1. Cardiomegaly without radiographic evidence of congestive failure. 2. Small right pleural effusion with right basilar consolidation. Correlate clinically for evidence of pneumonia/aspiration pneumonitis. Radiographic follow-up to resolution is recommended. 3. A tracheostomy is in place. ACT 112: Negative or not required by law. Electronically signed by: Chandler Jones M.D. 07/02/2023 7:57 AM Soft Tissue Neck X-Ray 07/01/23 19:19 SOFT TISSUES NECK 2 VIEWS CLINICAL HISTORY: Tracheostomy placement. FINDINGS: AP and lateral views of the neck are obtained. No prior studies are available for comparison at the time of dictation. A tracheostomy is in place. The soft tissues of the neck are normal as visualized. The airway is patent. No radiodense foreign body is seen. The retropharyngeal/prevertebral soft tissues are normal. Spondylotic change is noted in the cervical spine. Midline sternotomy wires are noted. Airspace consolidation is seen in the right midlung. There is chronic deformity of the left clavicle. IMPRESSION: 1. A tracheostomy is in place. 2. The soft tissues of the neck are otherwise normal as imaged. 3. Airspace consolidation is noted in the right midlung. Electronically signed by: Chandler Jones M.D. 07/02/2023 7:[address] 07/01/23 22:56 Exam(s): CT CHEST Without Contrast EXAM: CT Chest Without Intravenous Contrast CLINICAL HISTORY: Reason for exam: abn xray, trach replacement. TECHNIQUE: Axial computed tomography images of the chest without intravenous contrast. CTDI is 7.87 mGy and DLP is 278.79 mGy-cm. Automated exposure control was utilized for the study. A dose lowering technique was utilized adhering to the principles of ALARA. COMPARISON: No relevant prior studies available. FINDINGS: Lungs: Aspiration pneumonia at the RIGHT lung base, with debris in the RIGHT mainstem bronchus. Small RIGHT pleural effusion. No mass. Pleural space: See above. Heart: Sternotomy wires. Cardiomegaly. No significant pericardial effusion. No significant coronary artery calcifications. Bones/joints: Degenerative changes of the spine. No acute fracture. No dislocation. Soft tissues: Unremarkable. Vasculature: Atherosclerotic changes of the aorta, with coronary involvement. No thoracic aortic aneurysm. Lymph nodes: Unremarkable. No enlarged lymph nodes. Gallbladder and bile ducts: Cholecystectomy. Tubes, lines and devices: PEG tube in the stomach with catheter extending into the small bowel. IMPRESSION: 1. Aspiration pneumonia at the RIGHT lung base, with debris in the RIGHT mainstem bronchus. Small RIGHT pleural effusion. 2. Cholecystectomy. Electronically signed by: Jim Ward MD 07/02/23 00:26 AM Chest X-Ray 07/11/23 09:04 XR chest 1V portable CLINICAL HISTORY: b/l crackles COMPARISON STUDY: Chest radiograph and chest CT July 01, 2023. FINDINGS: There are median sternotomy wires, mediastinal surgical clips and a tracheostomy tube. No pneumothorax is present. A small right pleural effusion is noted, including fluid along the major fissure. There is mild interstitial thickening. Cardiomediastinal silhouette is stable. Skinfold projects over the left chest. IMPRESSION: 1. Mild interstitial thickening. This may reflect an infectious process or pulmonary edema. No consolidation. 2. No significant change in a small right pleural effusion, including fluid along the major fissure. ACT 112: Negative or not required by law. Electronically signed by: Tyler Thorne M.D. 07/11/2023 11:28 AM (1) Aspiration pneumonia Laterality: right Lung location: lower lobe of lung
--- NOTE | 2023-07-12 04:21 | Communication Note ---
Date of Service: July 12, 2023 Notified by RN of dislodged tracheostomy tube (size 4) secondary to patient pulling it out due to episode of confusion. Happened 4 days ago as per records. RT unable to replace patient's smaller tracheostomy tube. Patient not in respiratory distress as per RN. Code radha called later on by RT. Contacted Dr. Bergeron (ENT on-call) who kindly came over to evaluate patient and replace tracheostomy tube of appropriate size (size 6) at bedside. Use mitt restraints to avoid recurrent dislodgment due to patient confusion. Mitt restraints may be necessary even after discharge from hospital given patient circumstances. Will ask AM provider to discuss with .
[2023-07-12] MEDS ORDERED: MoRPHine SULFATE 2 MG/ML CARP IV PRN (04:56)
[2023-07-12] MEDS: MoRPHine SULFATE 2 MG/ML CARP ONE (05:02)
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
[2023-07-12] MEDS: KETOROLAC TROMETHAMINE 15 MG/ML VIAL IV ONE (05:33)
[2023-07-12 06:35] LABS: Hematocrit (blood only) 28.2 % (42.0-52.0); Hemoglobin 8.9 g/dl (14.0-18.0); Mean Corpuscular Hemoglobin 30.2 pg (25.0-34.0); Mean Corpuscular Hgb Conc 31.6 g/dL (32.0-36.0); Mean Corpuscular Volume 95.6 fL (80.0-100.0); Mean Platelet Volume 9.8 fL (9.4-12.4); Platelet Count 213 K/uL (130-400); RDW Coefficient of Variation 15.3 % (11.5-14.5); RDW Standard Deviation 53.5 fL (36.4-46.3); Red Blood Count 2.95 M/uL (4.70-6.10); White Blood Count 7.52 K/ul (4.8-10.8)
[2023-07-12 07:00] LABS: BUN Creatinine Ratio 47.1 (10-20); Calcium 9.3 mg/dl (8.6-10.3); Creatinine Clr Calc Pharmacy 114.4 ml/min; Est GFR (African American) 117.7 ml/min; Est GFR (Non-African American) 101.5 ml/min; Potassium 4.5 mmol/L (3.5-5.1)
[2023-07-12] MEDS: TOBRAMYCIN 300MG NEB INH SCH (08:11)
[2023-07-12] MEDS: CHLORHEXIDINE GLUCONATE 0.12% 480 ML MT SCH (09:18)
[2023-07-12 13:38] LABS: Appearance Urine Turbid (Clear); Bacteria Urine Automated Negative (Negative); Bilirubin Urine Negative (Negative); Blood Urine 3+ (Negative); Color Urine Orange; Glucose Urine UA Negative (Negative); Ketones Urine Negative (Negative); Leukocyte Esterase Urine 2+ (Negative); Nitrite Urine Negative (Negative); RBC Urine Automated >30 /hpf (0-4); Specific Gravity Urine 1.019 (1.000-1.030); Urobilinogen Urine Negative (Negative); pH Urine 7.5 (4.5-7.5)
[2023-07-12 13:49] LABS: Protein Urine 1+ (Negative)
--- NOTE | 2023-07-12 18:48 | Hospitalist Progress Note ---
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 Patient at [facility] as of 06/30, after stay at [facility] s/p discharge from admission at [facility]. Circumstances of dislodged trach are unclear. Patient was admitted to [facility] on 05/26/2023 for stridor. 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 This was performed by Dr. De La Rosa . First trach change performed 06/03/2023. Received quad shot radiation therapy on 06/09/23 and 06/10/23. * Discussion at [place] Tumor board was had discussing the complexity of patient's case: " On imaging, the mass appears locally destructive and erosive. The lesion seems to abutting the thyroid cartilage and there is possible chondronecrosis of the cricoid (versus tumor necrosis). There is also soft tissue thickening of the esophagus. Again, we discussed that there are no imaging findings suggestive of metastatic disease. A surgical option for this patient would require at least a total laryngectomy, esophagectomy with gastric pull up, which could be challenging for the patient to undergo given his comorbidities and overall health. After multidisciplinary discussion, the official tumor board recommendation was for inpatient radiation oncology, medical oncology, and palliative medicine consultation." Summation of recent admission: Diagnosis of SCC of hypopharynx: Palliative Care evaluated patient on 06/04 at [facility]: "does not eat by mouth, uses feeding tube" -Was with decision making capacity Oncology met with patient on 05/26: -Declined surgery, wishes to pursue radiation Heme/Onc appt 07/29 Radiation Oncology Met with patient on 06/05: -Poor ECOG, not candidate for combo Chemo/XRT -Planning for "shot radiation" "Per chart 06/25 communication report: Patient is scheduled for Quad shot RT on 07/01/23 and 07/02/23. Rad/Onc staff has been attempting to contact patient regard RT appointments. Called both patient and patient's spouse's phones, No answer. Left messages for patient and patient's spouse to return my call. Called [facility] and spoke with Juany. Patient is still a patient at [facility] and will be tentatively discharged on 06/30/23. Juany will let patient know Rad/Onc staff is attempting to contact patient. Rad/Onc nursing phone number provided. Speech evaluated patient Allow ice chips and sips of water in moderation w/good oral care for comfort and to facilitate overall swallow function regarding PO intake moving forward w/this pt Noted to have bilateral rhonchi on 07/10 CXR with mild interstitial thickening. This may reflect an infectious process or pulmonary edema. No consolidation. 2.No significant change in a small right pleural effusion, including fluid along the major fissure. Continue self- suctioning, aggressive chest PT, hypertonic nebs Per ID recommendations from Dr. Matos, who officially responded to consult, recommended treatment for Trachitis Given patients clinical status/immunocompromised nature iso malignancy, will treat IV Cefepime 1 g q6 hours x 7-10 days. 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 -Replaced with smaller caliber, not likely candidate for pasey-savannah 2/[address] -Recommend ENT follow up to see if larger caliber can be placed -Remains stable at this time #Aspiration pneumonia #Copious secretions from trach c/f tracheitis #Recurrent laryngeal cancer ongoing radiation Rx #MDRO Pseudomonas, colonizer #PEG tube placement No sepsis for now Continue TF Patient with intent to pursue radiation, will continue NPO status with ice/lazo, Oral care and aspiration precautions Pulmonary on consult to aid in management of secretions given smaller caliber tube -Reviewed Pulm notes/recommendations -Mucomyst nebs, chest PT, and hypertonic saline nebs -Continued Amoxicillin/clav up to 07/07 -ID consult given pseudomonas in trach sputum culture--given clinical improvement, escalate abx? colonization? -Discussed with Dr. Doss via [employer] on 07/06/2022-MDRO pseudomonas likely colonization given clinical improvement -New infectious disease recommendations from Dr. Matos who officially responded to consult and recommended treatment for Trachitis Given patients clinical status/immunocompromised nature iso malignancy, will treat IV Cefepime 1 g q6 hours x 7-10 days. EOT 07/15 #CAD status CABG/stent/PVD #PAF, patient NSR #hypertension, stable #hyperlipidemia, on statin Rx #hypothyroidism, TSH 6.2 on admission #Anemia of chronic disease, hemoglobin at baseline #DM2 on oral medications, well-controlled as of recent hemoglobin A1c of 6 last month #GERD, on PPI #past tobacco abuse DVT prophylaxis. Lovenox subcu DNR as per patient's prior directives. Discharge planning ongoing, LTACH declined, referral to rehab placed and accepted at [facility] with bed likely Mon/ Admission and Anticipated Discharge Date Admission Date: July 03, 2023 Subjective Follow-up for tracheitis, etc. Events overnight noted Trach got dislodged, ENT provider replaced the trach earlier this morning Seen resting in bed, comfortable, awake and alert Good spirits States he feels fine overall Denies shortness of breath, fevers or chills, nausea or vomiting Noted to have brownish urine output Denies abdominal pain, bladder pain No other issues noted Review of Systems Review of Systems: all noted and negative except for above Physical Exam Physical Exam: General- oriented x 3, not in distress, speaks in sentences with no effort or accessory muscle use Eyes- anicteric Neck- no JVD Trach in place Lungs-mild rhonchi noted, no wheeze Heart- normal rate, regular rhythm; no murmurs Abdomen- normal bowel sounds, nondistended, soft, nontender Extremities- no pretibial edema, no calf tenderness Neuro- alert, oriented x 3; no gross focal neurologic deficits Skin- warm & dry Results & Data Results & Data Vital Signs (Past 12 Hours) Vital Signs Temp Pulse Resp BP BP Pulse Ox O2 Del Method 07/12/23 14:53 36.8 C 75 18 120/71 91 Room Air 07/12/23 08:00 Trach Collar 07/12/23 07:28 36.7 C 73 16 91/57 L 95 Room Air all noted and reviewed including below (1) Aspiration pneumonia Laterality: right Lung location: lower lobe of lung
--- NOTE | 2023-07-13 14:55 | Hospitalist Progress Note ---
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 Patient at [facility] as of 06/30, after stay at [facility] s/p discharge from admission at [facility]. Circumstances of dislodged trach are unclear. Patient was admitted to [facility] on 05/26/2023 for stridor. 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 This was performed by Dr. De La Rosa . First trach change performed 06/03/2023. Received quad shot radiation therapy on 06/09/23 and 06/10/23. * Discussion at [place] Tumor board was had discussing the complexity of patient's case: " On imaging, the mass appears locally destructive and erosive. The lesion seems to abutting the thyroid cartilage and there is possible chondronecrosis of the cricoid (versus tumor necrosis). There is also soft tissue thickening of the esophagus. Again, we discussed that there are no imaging findings suggestive of metastatic disease. A surgical option for this patient would require at least a total laryngectomy, esophagectomy with gastric pull up, which could be challenging for the patient to undergo given his comorbidities and overall health. After multidisciplinary discussion, the official tumor board recommendation was for inpatient radiation oncology, medical oncology, and palliative medicine consultation." Summation of recent admission: Diagnosis of SCC of hypopharynx: Palliative Care evaluated patient on 06/04 at [facility]: "does not eat by mouth, uses feeding tube" -Was with decision making capacity Oncology met with patient on 05/26: -Declined surgery, wishes to pursue radiation Heme/Onc appt 07/29 Radiation Oncology Met with patient on 06/05: -Poor ECOG, not candidate for combo Chemo/XRT -Planning for "shot radiation" "Per chart 06/25 communication report: Patient is scheduled for Quad shot RT on 07/01/23 and 07/02/23. Rad/Onc staff has been attempting to contact patient regard RT appointments. Called both patient and patient's spouse's phones, No answer. Left messages for patient and patient's spouse to return my call. Called [facility] and spoke with Juany. Patient is still a patient at [facility] and will be tentatively discharged on 06/30/23. Juany will let patient know Rad/Onc staff is attempting to contact patient. Rad/Onc nursing phone number provided. Speech evaluated patient Allow ice chips and sips of water in moderation w/good oral care for comfort and to facilitate overall swallow function regarding PO intake moving forward w/this pt Noted to have bilateral rhonchi on 07/10 CXR with mild interstitial thickening. This may reflect an infectious process or pulmonary edema. No consolidation. 2.No significant change in a small right pleural effusion, including fluid along the major fissure. Continue self- suctioning, aggressive chest PT, hypertonic nebs Per ID recommendations from Dr. Matos, who officially responded to consult, recommended treatment for Trachitis Given patients clinical status/immunocompromised nature iso malignancy, will treat IV Cefepime 1 g q6 hours x 7-10 days. EOT 07/15 Referral made to LTAC via CM; however, given low level care (not PCU/ICU status) patient not candidate for LTAC Accepted at [facility] for rehab - bed likely available Fri/07/12 Trach replaced Will try to attempt mittens versus sitter tonight to avoid dislodgment of trach, discussed at length with patient's RN Continue IV antibiotic 07/13 Trach in good position Continue IV cefepime until July 15, 2023 Episode of hematuria Resolved, currently has yellow clear urine Likely secondary to irritation from Jenkins catheter Hemoglobin stable Aspirin and Lovenox on hold, resume tomorrow if urine remains clear #Generalized Weakness -see above #Trach tube dislodged #Trach dependent resp failure 2/ obstruction from SCC hypopharynx -Replaced with smaller caliber, not likely candidate for pasey-savannah 2/ size of tube in place -Recommend ENT follow up to see if larger caliber can be placed -Remains stable at this time 07/13 Trach tube dislodged morning of 07/12, replaced by Dr. Og One-to-one sitter in progress #Aspiration pneumonia #Copious secretions from trach c/f tracheitis #Recurrent laryngeal cancer ongoing radiation Rx #MDRO Pseudomonas, colonizer #PEG tube placement No sepsis for now Continue TF Patient with intent to pursue radiation, will continue NPO status with ice/lazo, Oral care and aspiration precautions Pulmonary on consult to aid in management of secretions given smaller caliber tube -Reviewed Pulm notes/recommendations -Mucomyst nebs, chest PT, and hypertonic saline nebs -Continued Amoxicillin/clav up to 07/07 -ID consult given pseudomonas in trach sputum culture--given clinical i mprovement, escalate abx? colonization? -Discussed with Dr. Doss via [employer] on 07/06/2022-MDRO pseudomonas likely colonization given clinical improvement -New infectious disease recommendations from Dr. Matos who officially responded to consult and recommended treatment for Trachitis Given patients clinical status/immunocompromised nature iso malignancy, will treat IV Cefepime 1 g q6 hours x 7-10 days. EOT 07/15 #CAD status CABG/stent/PVD #PAF, patient NSR #hypertension, stable #hyperlipidemia, on statin Rx #hypothyroidism, TSH 6.2 on admission #Anemia of chronic disease, hemoglobin at baseline #DM2 on oral medications, well-controlled as of recent hemoglobin A1c of 6 last month #GERD, on PPI #past tobacco abuse DVT prophylaxis. Lovenox subcu DNR as per patient's prior directives. Discharge planning ongoing, LTACH declined, referral to rehab placed and accepted at [facility] with bed likely Fri/ Admission and Anticipated Discharge Date Admission Date: July 03, 2023 Subjective Follow-up for tracheitis, etc. Seen resting in bed, comfortable, in good spirits, smiling States he feels fine overall Breathing is fine, no problems with breathing No abdominal pain, nausea vomiting, fevers or chills Tracheal secretions seems to be less No other new symptoms Review of Systems Review of Systems: all noted and negative except for above Physical Exam Physical Exam: General- oriented x 3, not in distress, speaks in sentences with no effort or accessory muscle use Eyes- anicteric Neck- no JVD Trach in place, no bleeding or discharge Lungs- clear breath sounds bilaterally, no rales/wheezes Heart- normal rate, regular rhythm; no murmurs Abdomen- normal bowel sounds, nondistended, soft, nontender PEG tube in place-in good position, no bleeding or discharge Jenkins catheter in place-draining yellow urine Extremities- no pretibial edema, no calf tenderness Neuro- alert, oriented x 3; no gross focal neurologic deficits Skin- warm & dry Results & Data Results & Data Vital Signs (Past 12 Hours) Vital Signs Pulse Resp Pulse Ox O2 Del Method O2 Flow Rate FiO2 07/13/23 08:00 Trach Collar 3 07/13/23 07:23 76 15 100 Trach Collar 6 28 all noted and reviewed including below (1) Aspiration pneumonia Laterality: right Lung location: lower lobe of lung
[2023-07-14 08:56] LABS: Creatinine Clr Calc Pharmacy 114.4 ml/min; Est GFR (African American) 117.7 ml/min; Est GFR (Non-African American) 101.5 ml/min
--- NOTE | 2023-07-14 19:26 | Hospitalist Progress Note ---
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 Patient at [facility] as of 06/30, after stay at [facility] s/p discharge from admission at [facility]. Circumstances of dislodged trach are unclear. Patient was admitted to [facility] on 05/26/2023 for stridor. 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 This was performed by Dr. De La Rosa . First trach change performed 06/03/2023. Received quad shot radiation therapy on 06/09/23 and 06/10/23. * Discussion at [place] Tumor board was had discussing the complexity of patient's case: " On imaging, the mass appears locally destructive and erosive. The lesion seems to abutting the thyroid cartilage and there is possible chondronecrosis of the cricoid (versus tumor necrosis). There is also soft tissue thickening of the esophagus. Again, we discussed that there are no imaging findings suggestive of metastatic disease. A surgical option for this patient would require at least a total laryngectomy, esophagectomy with gastric pull up, which could be challenging for the patient to undergo given his comorbidities and overall health. After multidisciplinary discussion, the official tumor board recommendation was for inpatient radiation oncology, medical oncology, and palliative medicine consultation." Summation of recent admission: Diagnosis of SCC of hypopharynx: Palliative Care evaluated patient on 06/04 at [facility]: "does not eat by mouth, uses feeding tube" -Was with decision making capacity Oncology met with patient on 05/26: -Declined surgery, wishes to pursue radiation Heme/Onc appt 07/29 Radiation Oncology Met with patient on 06/05: -Poor ECOG, not candidate for combo Chemo/XRT -Planning for "shot radiation" "Per chart 06/25 communication report: Patient is scheduled for Quad shot RT on 07/01/23 and 07/02/23. Rad/Onc staff has been attempting to contact patient regard RT appointments. Called both patient and patient's spouse's phones, No answer. Left messages for patient and patient's spouse to return my call. Called [facility] and spoke with Juany. Patient is still a patient at [facility] and will be tentatively dis charged on 06/30/23. Juany will let patient know Rad/Onc staff is attempting to contact patient. Rad/Onc nursing phone number provided. Speech evaluated patient Allow ice chips and sips of water in moderation w/good oral care for comfort and to facilitate overall swallow function regarding PO intake moving forward w/this pt Noted to have bilateral rhonchi on 07/10 CXR with mild interstitial thickening. This may reflect an infectious process or pulmonary edema. No consolidation. 2.No significant change in a small right pleural effusion, including fluid along the major fissure. Continue self- suctioning, aggressive chest PT, hypertonic nebs Per ID recommendations from Dr. Matos, who officially responded to consult, recommended treatment for Trachitis Given patients clinical status/immunocompromised nature iso malignancy, will treat IV Cefepime 1 g q6 hours x 7-10 days. EOT 07/15 Referral made to LTAC via CM; however, given low level care (not PCU/ICU status) patient not candidate for LTAC Accepted at [facility] for rehab - bed likely available Fri/07/12 Trach replaced Will try to attempt mittens versus sitter tonight to avoid dislodgment of trach, discussed at length with patient's RN Continue IV antibiotic 07/13 Trach in good position Continue IV cefepime until July 15, 202307/14 Trach without any issues Continue IV cefepime Episode of hematuria Resolved, currently has yellow clear urine Likely secondary to irritation from Jenkins catheter Hemoglobin stable Resume aspirin #Generalized Weakness -see above #Trach tube dislodged #Trach dependent resp failure 2/ obstruction from SCC hypopharynx -Replaced with smaller caliber, not likely candidate for zachey-savannah 06/[address] -Recommend ENT follow up to see if larger caliber can be placed -Remains stable at this time 07/13 Trach tube dislodged morning of 07/12, replaced by Dr. Og One-to-one sitter in progress 07/14 No issues with trach at present #Aspiration pneumonia #Copious secretions from trach c/f tracheitis #Recurrent laryngeal cancer ongoing radiation Rx #MDRO Pseudomonas, colonizer #PEG tube placement No sepsis for now Continue TF Patient with intent to pursue radiation, will continue NPO status with ice/lazo, Oral care and aspiration precautions Pulmonary on consult to aid in management of secretions given smaller caliber tube -Reviewed Pulm notes/recommendations -Mucomyst nebs, chest PT, and hypertonic saline nebs -Continued Amoxicillin/clav up to 07/07 -ID consult given pseudomonas in trach sputum culture--given clinical improvement, escalate abx? colonization? -Discussed with Dr. Doss via [employer] on 07/06/2022-MDRO pseudomonas likely colonization given clinical improvement -New infectious disease recommendations from Dr. Matos who officially responded to consult and recommended treatment for Trachitis Given patients clinical status/immunocompromised nature iso malignancy, will treat IV Cefepime 1 g q6 hours x 7-10 days. EOT 07/15 #CAD status CABG/stent/PVD #PAF, patient NSR #hypertension, stable #hyperlipidemia, on statin Rx #hypothyroidism, TSH 6.2 on admission #Anemia of chronic disease, hemoglobin at baseline #DM2 on oral medications, well-controlled as of recent hemoglobin A1c of 6 last month #GERD, on PPI #past tobacco abuse DVT prophylaxis. Lovenox subcu DNR as per patient's prior directives. Discharge planning ongoing, LTACH declined, referral to rehab placed and accepted at [facility] with bed likely Fri/ Admission and Anticipated Discharge Date Admission Date: July 03, 2023 Subjective ff up for status post trach placement, etc. Resting in chair, comfortable, not in distress Feels fine overall No shortness of breath No other new symptoms Review of Systems Review of Systems: all noted and negative except for above Physical Exam Physical Exam: General- oriented x 3, not in distress, speaks in sentences with no effort or accessory muscle use Eyes- anicteric Neck-trach in place: No issues Lungs- clear breath sounds bilaterally, no rales/wheezes Heart- normal rate, regular rhythm; no murmurs Abdomen- normal bowel sounds, nondistended, soft, nontender Extremities- no pretibial edema, no calf tenderness Neuro- alert, oriented x 3; no gross focal neurologic deficits Skin- warm & dry Results & Data Results & Data Vital Signs (Past 12 Hours) Vital Signs Temp Pulse Resp BP Pulse Ox O2 Del Method O2 Flow Rate 07/14/23 16:26 36.8 C 88 19 113/64 95 Trach Collar 6 07/14/23 10:29 Trach Collar FiO2 07/14/23 16:26 28 07/14/23 10:29 all noted and reviewed including below (1) Aspiration pneumonia Laterality: right Lung location: lower lobe of lung
--- NOTE | 2023-07-15 19:52 | Hospitalist Progress Note ---
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 Patient at [facility] as of 06/30, after stay at [facility] s/p discharge from admission at [facility]. Circumstances of dislodged trach are unclear. Patient was admitted to [facility] on 05/26/2023 for stridor. 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 This was performed by Dr. De La Rosa . First trach change performed 06/03/2023. Received quad shot radiation therapy on 06/09/23 and 06/10/23. * Discussion at [place] Tumor board was had discussing the complexity of patient's case: " On imaging, the mass appears locally destructive and erosive. The lesion seems to abutting the thyroid cartilage and there is possible chondronecrosis of the cricoid (versus tumor necrosis). There is also soft tissue thickening of the esophagus. Again, we discussed that there are no imaging findings suggestive of metastatic disease. A surgical option for this patient would require at least a total laryngectomy, esophagectomy with gastric pull up, which could be challenging for the patient to undergo given his comorbidities and overall health. After multidisciplinary discussion, the official tumor board recommendation was for inpatient radiation oncology, medical oncology, and palliative medicine consultation." Summation of recent admission: Diagnosis of SCC of hypopharynx: Palliative Care evaluated patient on 06/04 at [facility]: "does not eat by mouth, uses feeding tube" -Was with decision making capacity Oncology met with patient on 05/26: -Declined surgery, wishes to pursue radiation Heme/Onc appt 07/29 Radiation Oncology Met with patient on 06/05: -Poor ECOG, not candidate for combo Chemo/XRT -Planning for "shot radiation" "Per chart 06/25 communication report: Patient is scheduled for Quad shot RT on 07/01/23 and 07/02/23. Rad/Onc staff has been attempting to contact patient regard RT appointments. Called both patient and patient's spouse's phones, No answer. Left messages for patient and patient's spouse to return my call. Called [facility] and spoke with Juany. Patient is still a patient at [facility] and will be tentatively discharged on 06/30/23. Juany will let patient know Rad/Onc staff is attempting to contact patient. Rad/Onc nursing phone number provided. Speech evaluated patient Allow ice chips and sips of water in moderation w/good oral care for comfort and to facilitate overall swallow function regarding PO intake moving forward w/this pt Noted to have bilateral rhonchi on 07/10 CXR with mild interstitial thickening. This may reflect an infectious process or pulmonary edema. No consolidation. 2.No significant change in a small right pleural effusion, including fluid along the major fissure. Continue self- suctioning, aggressive chest PT, hypertonic nebs Per ID recommendations from Dr. Matos, who officially responded to consult, recommended treatment for Trachitis Given patients clinical status/immunocompromised nature iso malignancy, will treat IV Cefepime 1 g q6 hours x 7-10 days. EOT 07/15 Referral made to LTAC via CM; however, given low level care (not PCU/ICU status) patient not candidate for LTAC Accepted at [facility] for rehab - bed likely available Fri/07/12 Trach replaced Will try to attempt mittens versus sitter tonight to avoid dislodgment of trach, discussed at length with patient's RN Continue IV antibiotic 07/13 Trach in good position Continue IV cefepime until July 15, 202307/14 trach in good position continue IV abc 07/15 completed course of IV Cefepime Episode of hematuria Resolved, currently has yellow clear urine Likely secondary to irritation from Jenkins catheter Hemoglobin stable Aspirin and Lovenox on hold, resume tomorrow if urine remains clear 07/15 resolved resume ASA and Lovenox #Generalized Weakness -see above #Trach tube dislodged #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 Og One-to-one sitter in progress #Aspiration pneumonia #Copious secretions from trach c/f tracheitis #Recurrent laryngeal cancer ongoing radiation Rx #MDRO Pseudomonas, colonizer #PEG tube placement No sepsis for now Continue TF Patient with intent to pursue radiation, will continue NPO status with ice/lazo, Oral care and aspiration precautions Pulmonary on consult to aid in management of secretions given smaller caliber tube -Reviewed Pulm notes/recommendations -Mucomyst nebs, chest PT, and hypertonic saline nebs -Continued Amoxicillin/clav up to 07/07 -ID consult given pseudomonas in trach sputum culture--given clinical improvement, escalate abx? colonization? -Discussed with Dr. Doss via [employer] on 07/06/2022-MDRO pseudomonas likely colonization given clinical improvement -New infectious disease recommendations from Dr. Matos who officially responded to consult and recommended treatment for Trachitis Given patients clinical status/immunocompromised nature iso malignancy, will treat IV Cefepime 1 g q6 hours x 7-10 days. EOT 07/15 #CAD status CABG/stent/PVD #PAF, patient NSR #hypertension, stable #hyperlipidemia, on statin Rx #hypothyroidism, TSH 6.2 on admission #Anemia of chronic disease, hemoglobin at baseline #DM2 on oral medications, well-controlled as of recent hemoglobin A1c of 6 last month #GERD, on PPI #past tobacco abuse DVT prophylaxis. Lovenox subcu DNR as per patient's prior directives. Discharge planning ongoing, LTACH declined, referral to rehab placed and accepted at [facility] with bed likely Mon/ Admission and Anticipated Discharge Date Admission Date: July 03, 2023 Subjective ff up for tracheitis, etc seen resting in bed, comfortable feels fine overall breathing ok minimal secretions per trach no other new symptoms Review of Systems Review of Systems: all noted and negative except for above Physical Exam Physical Exam: General- oriented x 3, not in distress, speaks in sentences with no effort or accessory muscle use trach- in good position Eyes- anicteric Neck- no JVD Lungs- clear breath sounds bilaterally, no rales/wheezes Heart- normal rate, regular rhythm; no murmurs Abdomen- normal bowel sounds, nondistended, soft, nontender PEG tube in place- no bleeding, discharge Jenkins cath in place- yellow clear urine Extremities- no pretibial edema, no calf tenderness Neuro- alert, oriented x 3; no gross focal neurologic deficits Skin- warm & dry Results & Data Results & Data Vital Signs (Past 12 Hours) Vital Signs Temp Pulse Resp BP Pulse Ox O2 Del Method O2 Flow Rate 07/15/23 14:17 36.4 C L 66 16 106/70 100 Trach Collar 07/15/23 08:08 66 18 99 Trach Collar 8 07/15/23 08:00 Trach Collar FiO2 07/15/23 14:17 07/15/23 08:08 28 07/15/23 08:00 all noted and reviewed including below (1) Aspiration pneumonia Laterality: right Lung location: lower lobe of lung
--- NOTE | 2023-07-16 16:49 | Hospitalist Progress Note ---
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 Patient at [facility] as of 06/30, after stay at [facility] s/p discharge from admission at [facility]. Circumstances of dislodged trach are unclear. Past medical history Patient was admitted to [facility] on 05/26/2023 for stridor. 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 This was performed by Dr. De La Rosa . First trach change performed 06/03/2023. Received quad shot radiation therapy on 06/09/23 and 06/10/23. * Discussion at [place] Tumor board was had discussing the complexity of patient's case: " On imaging, the mass appears locally destructive and erosive. The lesion seems to abutting the thyroid cartilage and there is possible chondronecrosis of the cricoid (versus tumor necrosis). There is also soft tissue thickening of the esophagus. Again, we discussed that there are no imaging findings suggestive of metastatic disease. A surgical option for this patient would require at least a total laryngectomy, esophagectomy with gastric pull up, which could be challenging for the patient to undergo given his comorbidities and overall health. After multidisciplinary discussion, the official tumor board recommend ation was for inpatient radiation oncology, medical oncology, and palliative medicine consultation." Summation of recent admission: Diagnosis of SCC of hypopharynx: Palliative Care evaluated patient on 06/04 at [facility]: "does not eat by mouth, uses feeding tube" -Was with decision making capacity Oncology met with patient on 05/26: -Declined surgery, wishes to pursue radiation Heme/Onc appt 07/29 Radiation Oncology Met with patient on 06/05: -Poor ECOG, not candidate for combo Chemo/XRT -Planning for "shot radiation" "Per chart 06/25 communication report: Patient is scheduled for Quad shot RT on 07/01/23 and 07/02/23. Rad/Onc staff has been attempting to contact patient regard RT appointments. Called both patient and patient's spouse's phones, No answer. Left messages for patient and patient's spouse to return my call. Called [facility] and spoke with Juany. Patient is still a patient at [facility] and will be tentatively discharged on 06/30/23. Juany will let patient know Rad/Onc staff is attempting to contact patient. Rad/Onc nursing phone number provided. Speech evaluated patient Allow ice chips and sips of water in moderation w/good oral care for comfort and to facilitate overall swallow function regarding PO intake moving forward w/this pt CXR with mild interstitial thickening. This may reflect an infectious process or pulmonary edema. No consolidation. 2.No significant change in a small right pleural effusion, including fluid along the major fissure. Continue self- suctioning, aggressive chest PT, hypertonic nebs Per ID recommendations from Dr. Matos, who officially responded to consult, recommended treatment for Trachitis Given patients clinical status/immunocompromised nature iso malignancy, patient was treated with IV cefepime for total of 7 days. Trach was replaced by ENT on July 12, 2023 Episode of hematuria, resolved Resolved, currently has yellow clear urine Likely secondary to irritation from Jenkins catheter Hemoglobin stable Aspirin and Lovenox were on hold; resume #Aspiration pneumonia #Copious secretions from trach c/f tracheitis #Recurrent laryngeal cancer ongoing radiation Rx #MDRO Pseudomonas, colonizer #PEG tube placement Continue TF Patient with intent to pursue radiation, will continue NPO status with ice/lazo, Oral care and aspiration precautions Pulmonary on consult to aid in management of secretions given smaller caliber tube -Reviewed Pulm notes/recommendations -Mucomyst nebs, chest PT, and hypertonic saline nebs -Continued Amoxicillin/clav up to 07/07 -ID consult given pseudomonas in trach sputum culture--given clinical improvement, escalate abx? colonization? -Discussed with Dr. Doss via [employer] on 07/06/2022-MDRO pseudomonas likely colonization given clinical improvement -New infectious disease recommendations from Dr. Matos who officially responded to consult and recommended treatment for Trachitis Given patients clinical status/immunocompromised nature iso malignancy, was treated IV Cefepime 1 g q6 hours x 7-10 days. Patient completed on July 15, 2023 #CAD status CABG/stent/PVD #PAF, patient NSR #hypertension, stable #hyperlipidemia, on statin Rx #hypothyroidism, TSH 6.2 on admission #Anemia of chronic disease, hemoglobin at baseline #DM2 on oral medications, well-controlled as of recent hemoglobin A1c of 6 last month #GERD, on PPI #past tobacco abuse DVT prophylaxis. Lovenox subcu DNR as per patient's prior directives. Dispositiondiscussed with patient at bedside at length. Patient is denied to go to SNF today due to one-to-one sitter. She wants to explore taking the patient home; possibly under home health or hospice care. Patient, and patient's son to discuss about the next step and get back to the treatment team. She agrees to keep patient on every 15 checks for the time being which will help him qualify for the SNF. I discussed risks of trach dislodgment again; she verbalized and understood the risks. Patient also agreed with the plan. Time spent evaluating patient, direct bedside care, chart review, placing orders, interpretation of diagnostic studies, discussion with consultants, patient, and family members, as well as other required patient management ac tivities is 60 minutes Please note the above document was generated using voice recognition software. It may contain grammatical, syntax or spelling errors. Any formal questions or concerns about the content, text or information contained within the body of this dictation should be directly addressed to the provider for clarification Admission and Anticipated Discharge Date Admission Date: July 03, 2023 Subjective Patient seen and examined at bedside. He continues to have thick mucus secretion from the trach tube; he is using suction by himself. Oxygen requirement has not increased; he appears comfortable. Review of Systems Review of Systems: All systems reviewed & are unremarkable except as noted in Subjective Physical Exam Physical Exam: Constitutional: Awake, alert oriented x 3; not in distress. Respiratory: Occasional rhonchi heard. Necktracheostomy in place with trach collar Cardiovascular: RRR, no murmur, no edema Vessels: no JVD or carotid bruit Chest: normal inspection of chest Abdomen: normal bowel sounds, soft, nontender, no hepatosplenomegaly Musculoskeletal: no cyanosis or clubbing, extremities motor strength 5/5 Skin: no rashes, warm and dry normal turgor Neurologic: PERRL, EOMI, accommodation nl, no face palsy, no dysarthria CN's II- XI intact bilaterally and moves all extremities Results & Data Results & Data Vital Signs (Past 12 Hours) Vital Signs Temp Pulse Resp BP BP Pulse Ox O2 Del Method 07/16/23 15:52 36.6 C 72 16 108/58 L 96 Trach Collar 07/16/23 10:26 95/56 L 07/16/23 09:45 82/53 L 07/16/23 08:00 Trach Collar 07/16/23 07:39 36.4 C L 60 18 90/48 L 100 Trach Collar 07/16/23 07:28 80 18 94 Room Air (1) Aspiration pneumonia Laterality: right Lung location: lower lobe of lung
[2023-07-17 08:12] LABS: Basophils # (auto) 0.04 K/uL (0.00-0.20); Basophils % (auto) 0.6 %; Eosinophils # (auto) 0.44 K/uL (0.00-0.50); Eosinophils % (auto) 6.6 %; Hematocrit (blood only) 28.8 % (42.0-52.0); Hemoglobin 9.2 g/dl (14.0-18.0); Immature Granulocytes # (auto) 0.02 K/uL (0.01-0.20); Immature Granulocytes % (auto) 0.3 %; Lymphocytes # (auto) 2.06 K/uL (1.20-3.40); Mean Corpuscular Hemoglobin 30.2 pg (25.0-34.0); Mean Corpuscular Hgb Conc 31.9 g/dL (32.0-36.0); Mean Corpuscular Volume 94.4 fL (80.0-100.0); Monocytes # (auto) 0.79 K/uL (0.11-0.59); Monocytes % (auto) 11.9 %; Neutrophils # (auto) 3.29 K/uL (1.40-6.50); Neutrophils % (auto) 49.6 %; Platelet Count 210 K/uL (130-400); RDW Coefficient of Variation 15.1 % (11.5-14.5); RDW Standard Deviation 52.7 fL (36.4-46.3); Red Blood Count 3.05 M/uL (4.70-6.10); White Blood Count 6.64 K/ul (4.8-10.8)
[2023-07-17 08:37] LABS: BUN Creatinine Ratio 54.2 (10-20); Calcium 9.6 mg/dl (8.6-10.3); Creatinine Clr Calc Pharmacy 98.9 ml/min; Est GFR (African American) 110.8 ml/min; Est GFR (Non-African American) 95.6 ml/min; Potassium 4.3 mmol/L (3.5-5.1)
--- NOTE | 2023-07-17 12:56 | Hospitalist Progress Note ---
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 Patient at [facility] as of 06/30, after stay at [facility] s/p discharge from admission at [facility]. Patient was sent to the ED after dislodgment of the trach tube. Circumstances of dislodged trach are unclear. Past medical history Patient was admitted to [facility] on 05/26/2023 for stridor. 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 This was performed by Dr. De La Rosa . First trach change performed 06/03/2023. Received quad shot radiation therapy on 06/09/23 and 06/10/23. * Discussion at [place] Tumor board was had discussing the complexity of patient's case: " On imaging, the mass appears locally destructive and erosive. The lesion seems to abutting the thyroid cartilage and there is possible chondronecrosis of the cricoid (versus tumor necrosis). There is also soft tissue thickening of the esophagus. Again, we discussed that there are no imaging findings suggestive of metastatic disease. A surgical option for this patient would require at least a total laryngectomy, esophagectomy with gastric pull up, which could be challenging for the patient to undergo given his comorbidities and overall health. After multidisciplinary discussion, the official tumor board recommendation was for inpatient radiation oncology, medical oncology, and palliative medicine consultation." Summation of recent admission: Diagnosis of SCC of hypopharynx: Palliative Care evaluated patient on 06/04 at [facility]: "does not eat by mouth, uses feeding tube" -Was with decision making capacity Oncology met with patient on 05/26: -Declined surgery, wishes to pursue radiation Heme/Onc appt 07/29 Radiation Oncology Met with patient on 06/05: -Poor ECOG, not candidate for combo Chemo/XRT -Planning for "shot radiation" "Per chart 06/25 communication report: Patient is scheduled for Quad shot RT on 07/01/23 and 07/02/23. Rad/Onc staff has been attempting to contact patient regard RT appointments. Called both patient and patient's spouse's phones, No answer. Left messages for patient and patient's spouse to return my call. Called [facility] and spoke with Juany. Patient is still a patient at [facility] and will be tentatively discharged on 06/30/23. Juany will let patient know Rad/Onc staff is attempting to contact patient. Rad/Onc nursing phone number provided. Speech evaluated patient Allow ice chips and sips of water in moderation w/good oral care for comfort and to facilitate overall swallow function regarding PO intake moving forward w/this pt CXR with mild interstitial thickening. This may reflect an infectious process or pulmonary edema. No consolidation. 2.No significant change in a small right pleural effusion, including fluid along the major fissure. Continue self- suctioning, aggressive chest PT, hypertonic nebs Per ID recommendations from Dr. Matos, who officially responded to consult, recommended treatment for Trachitis Given patients clinical status/immunocompromised nature iso malignancy, patient was treated with IV cefepime for total of 7 days. Trach was replaced by ENT on July 12, 2023 Episode of hematuria, resolved Resolved, currently has yellow clear urine Likely secondary to irritation from Jenkins catheter Hemoglobin stable Aspirin and Lovenox were on hold; resumed #Aspiration pneumonia #Copious secretions from trach c/f tracheitis #Recurrent laryngeal cancer ongoing radiation Rx #MDRO Pseudomonas, colonizer #PEG tube placement Continue TF Patient with intent to pursue radiation, will continue NPO status with ice/lazo, Oral care and aspiration precautions Pulmonary on consult to aid in management of secretions given smaller caliber tube -Reviewed Pulm notes/recommendations -Mucomyst nebs, chest PT, and hypertonic saline nebs -Continued Amoxicillin/clav up to 07/07 -ID consult given pseudomonas in trach sputum culture--given clinical improvement, escalate abx? colonization? -Discussed with Dr. Doss via [employer] on 07/06/2022-MDRO pseudomonas likely colonization given clinical improvement -New infectious disease recommendations from Dr. Matos who officially responded to consult and recommended treatment for Trachitis Given patients clinical status/immunocompromised nature iso malignancy, was treated IV Cefepime 1 g q6 hours x 7-10 days. Patient completed on July 15, 2023 #CAD status CABG/stent/PVD #PAF, patient NSR #hypertension, stable #hyperlipidemia, on statin Rx #hypothyroidism, TSH 6.2 on admission #Anemia of chronic disease, hemoglobin at baseline #DM2 on oral medications, well-controlled as of recent hemoglobin A1c of 6 last month #GERD, on PPI #past tobacco abuse DVT prophylaxis. Lovenox subcu DNR as per patient's prior directives. Dispositiondiscussed with patient at bedside at length on July 16, 2023. Patient is denied to go to SNF today due to one-to-one sitter. She wants to explore taking the patient home; possibly under home health or hospice care. Patient, and patient's son to discuss about the next step and get back to the treatment team. She agrees to keep patient on every 15 checks for the time being which will help him qualify for the SNF. I discussed risks of trach dislodgment again; she verbalized and understood the risks. Patient also agreed with the plan. Time spent evaluating patient, direct bedside care, chart review, placing orders, interpretation of diagnostic studies, discussion with consultants, patient, and family members, as well as other required patient management activities is 50 minutes Please note the above document was generated using voice recognition software. It may contain grammatical, syntax or spelling errors. Any formal questions or concerns about the content, text or information contained within the body of this dictation should be directly addressed to the provider for clarification Admission and Anticipated Discharge Date Admission Date: July 03, 2023 Subjective Patient seen and examined at bedside. He is lying on the bed comfortably; not in distress. No significant events overnight. Continues to have secretions from the trach tube; improved Review of Systems Review of Systems: All systems reviewed & are unremarkable except as noted in Subjective Physical Exam Physical Exam: Constitutional: Awake, alert oriented x 3; not in distress. Respiratory: Occasional rhonchi heard. Necktracheostomy in place with trach collar Cardiovascular: RRR, no murmur, no edema Vessels: no JVD or carotid bruit Chest: normal inspection of chest Abdomen: normal bowel sounds, soft, nontender, no hepatosplenomegaly Musculoskeletal: no cyanosis or clubbing, extremities motor strength 5/5 Skin: no rashes, warm and dry normal turgor Neurologic: PERRL, EOMI, accommodation nl, no face palsy, no dysarthria CN's II- XI intact bilaterally and moves all extremities Results & Data Results & Data Vital Signs (Past 12 Hours) Vital Signs Pulse Resp BP Pulse Ox O2 Del Method O2 Flow Rate FiO2 07/17/23 08:15 Trach Collar 7 07/17/23 08:08 65 14 92/55 L 100 Trach Collar 7 07/17/23 07:45 75 16 96 Trach Collar 7 28 (1) Aspiration pneumonia Laterality: right Lung location: lower lobe of lung
[2023-07-18 07:19] LABS: Basophils # (auto) 0.05 K/uL (0.00-0.20); Basophils % (auto) 0.7 %; Eosinophils % (auto) 5.8 %; Hematocrit (blood only) 28.3 % (42.0-52.0); Immature Granulocytes # (auto) 0.02 K/uL (0.01-0.20); Immature Granulocytes % (auto) 0.3 %; Lymphocytes # (auto) 1.87 K/uL (1.20-3.40); Lymphocytes % (auto) 26.9 %; Mean Corpuscular Hemoglobin 30.1 pg (25.0-34.0); Mean Corpuscular Hgb Conc 31.8 g/dL (32.0-36.0); Mean Corpuscular Volume 94.6 fL (80.0-100.0); Mean Platelet Volume 10.1 fL (9.4-12.4); Monocytes # (auto) 0.87 K/uL (0.11-0.59); Monocytes % (auto) 12.5 %; Neutrophils # (auto) 3.73 K/uL (1.40-6.50); Neutrophils % (auto) 53.8 %; Platelet Count 231 K/uL (130-400); RDW Coefficient of Variation 15.1 % (11.5-14.5); RDW Standard Deviation 52.9 fL (36.4-46.3); Red Blood Count 2.99 M/uL (4.70-6.10); White Blood Count 6.94 K/ul (4.8-10.8)
[2023-07-18 07:43] LABS: BUN Creatinine Ratio 52.7 (10-20); Calcium 9.5 mg/dl (8.6-10.3); Creatinine Clr Calc Pharmacy 106.1 ml/min; Est GFR (African American) 114.1 ml/min; Est GFR (Non-African American) 98.4 ml/min; Potassium 4.1 mmol/L (3.5-5.1)
[2023-07-18] MEDS: SODIUM BICARBONATE 650 MG TAB PO ONE (11:42)
[2023-07-18] MEDS: TUBE FEEDING WATER FLUSH GT SCH (13:40)
--- NOTE | 2023-07-18 13:40 | Communication Note ---
Date of Service: July 18, 2023 GI was asked to evaluated a clogged J-Tube. Unable to pass despite attempts to unclog by nursing staff. He does have a functioning gastric port access. Disc ussed care with attending, unable to replace G-J tube. If he is unable to use gastric port access, G-J tube would need to be exchanged. His notes tube was placed at [facility] but does not recall if this was done surgically or by IR. If tube needs to be exchanged, would contact either general surgery or IR. Thank you for allowing us to participate in the care of this patient. Please call with any acute changes, questions or concerns. Please see addendum below with additional recommendation from my supervising physician.
[2023-07-18] MEDS: NUTREN LIQD 2.0 1,000 ML BAG GT SCH (13:43)
--- NOTE | 2023-07-18 17:24 | Hospitalist Progress Note ---
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 Patient at [facility] as of 06/30, after stay at [facility] s/p discharge from admission at [facility]. Patient was sent to the ED after dislodgment of the trach tube. Circumstances of dislodged trach are unclear. Past medical history Patient was admitted to [facility] on 05/26/2023 for stridor. 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 This was performed by Dr. De La Rosa . First trach change performed 06/03/2023. Received quad shot radiation therapy on 06/09/23 and 06/10/23. * Discussion at [place] Tumor board was had discussing the complexity of antwon ent's case: " On imaging, the mass appears locally destructive and erosive. The lesion seems to abutting the thyroid cartilage and there is possible chondronecrosis of the cricoid (versus tumor necrosis). There is also soft tissue thickening of the esophagus. Again, we discussed that there are no imaging findings suggestive of metastatic disease. A surgical option for this patient would require at least a total laryngectomy, esophagectomy with gastric pull up, which could be challenging for the patient to undergo given his comorbidities and overall health. After multidisciplinary discussion, the official tumor board recommendation was for inpatient radiation oncology, medical oncology, and palliative medicine consultation." Summation of recent admission: Diagnosis of SCC of hypopharynx: Palliative Care evaluated patient on 06/04 at [facility]: "does not eat by mouth, uses feeding tube" -Was with decision making capacity Oncology met with patient on 05/26: -Declined surgery, wishes to pursue radiation Heme/Onc appt 07/29 Radiation Oncology Met with patient on 06/05: -Poor ECOG, not candidate for combo Chemo/XRT -Planning for "shot radiation" "Per chart 06/25 communication report: Patient is scheduled for Quad shot RT on 07/01/23 and 07/02/23. Rad/Onc staff has been attempting to contact patient regard RT appointments. Called both patient and patient's spouse's phones, No answer. Left messages for patient and patient's spouse to return my call. Called [facility] and spoke with Juany. Patient is still a patient at [facility] and will be tentatively discharged on 06/30/23. Juany will let patient know Rad/Onc staff is attempting to contact patient. Rad/Onc nursing phone number provided. Speech evaluated patient Allow ice chips and sips of water in moderation w/good oral care for comfort and to facilitate overall swallow function regarding PO intake moving forward w/this pt CXR with mild interstitial thickening. This may reflect an infectious process or pulmonary edema. No consolidation. 2.No significant change in a small right pleural effusion, including fluid along the major fissure. Continue self- suctioning, aggressive chest PT, hypertonic nebs Per ID recommendations from Dr. Matos, who officially responded to consult, recommended treatment for Trachitis Given patients clinical status/immunocompromised nature iso malignancy, patient was treated with IV cefepime for total of 7 days. Trach was replaced by ENT on July 12, 2023 Patient's J-tube clogged on July 18, 2023. Discussed with both GI and surgery; unable to declog. Discussed with nutrition; G-tube can be used for feeding. Episode of hematuria, resolved Resolved, currently has yellow clear urine Likely secondary to irritation from Jenkins catheter Hemoglobin stable Aspirin and Lovenox were on hold; resumed #Aspiration pneumonia #Copious secretions from trach c/f tracheitis #Recurrent laryngeal cancer ongoing radiation Rx #MDRO Pseudomonas, colonizer GJ tube placement Continue TF Patient with intent to pursue radiation, will continue NPO status with ice/lazo, Oral care and aspiration precautions Pulmonary on consult to aid in management of secretions given smaller caliber tube -Reviewed Pulm notes/recommendations -Mucomyst nebs, chest PT, and hypertonic saline nebs -Continued Amoxicillin/clav up to 07/07 -ID consult given pseudomonas in trach sputum culture--given clinical improvement, escalate abx? colonization? -Discussed with Dr. Doss via [employer] on 07/06/2022-MDRO pseudomonas likely colonization given clinical improvement -New infectious disease recommendations from Dr. Matos who officially responded to consult and recommended treatment for Trachitis Given patients clinical status/immunocompromised nature iso malignancy, was treated IV Cefepime 1 g q6 hours x 7-10 days. Patient completed on July 15, 2023 #CAD status CABG/stent/PVD #PAF, patient NSR #hypertension, stable #hyperlipidemia, on statin Rx #hypothyroidism, TSH 6.2 on admission #Anemia of chronic disease, hemoglobin at baseline #DM2 on oral medications, well-controlled as of recent hemoglobin A1c of 6 last month #GERD, on PPI #past tobacco abuse DVT prophylaxis. Lovenox subcu DNR as per patient's prior directives. Dispositiondiscussed with patient at bedside at length on July 16, 2023. Patient is denied to go to SNF today due to one-to-one sitter. She wants to explore taking the patient home; possibly under home health or hospice care. Patient, and patient's son to discuss about the next step and get back to the treatment team. She agrees to keep patient on every 15 checks for the time being which will help him qualify for the SNF. I discussed risks of trach dislodgment again; she verbalized and understood the risks. Patient also agreed with the plan. Time spent evaluating patient, direct bedside care, chart review, placing orders, interpretation of diagnostic studies, discussion with consultants, patient, and family members, as well as other required patient management activities is 50 minutes Please note the above document was generated using voice recognition software. It may contain grammatical, syntax or spelling errors. Any formal questions or concerns about the content, text or information contained within the body of this dictation should be directly addressed to the provider for clarification Admission and Anticipated Discharge Date Admission Date: July 03, 2023 Subjective Patient seen and examined at bedside. Patient's J-tube appears to be clogged; unable to be declog despite multiple attempts by the nursing staff. Discussed with surgeon ( Dr. Brock); recommended GI consult Also discussed with GI; unable to be declogged Review of Systems Review of Systems: All systems reviewed & are unremarkable except as noted in Subjective Physical Exam Physical Exam: Constitutional: Awake, alert oriented x 3; not in distress. Respiratory: Occasional rhonchi heard. Necktracheostomy in place with trach collar Cardiovascular: RRR, no murmur, no edema Vessels: no JVD or carotid bruit Chest: normal inspection of chest Abdomen: normal bowel sounds, soft, nontender, no hepatosplenomegaly Musculoskeletal: no cyanosis or clubbing, extremities motor strength 5/5 Skin: no rashes, warm and dry normal turgor Neurologic: PERRL, EOMI, accommodation nl, no face palsy, no dysarthria CN's II- XI intact bilaterally and moves all extremities Results & Data Results & Data Vital Signs (Past 12 Hours) Vital Signs Temp Pulse Resp BP BP Pulse Ox O2 Del Method 07/18/23 15:19 36.8 C 76 16 134/71 100 Trach Collar 07/18/23 10:22 68 17 105/64 100 Trach Collar 07/18/23 10:02 Trach Collar 07/18/23 07:49 74 19 91 Trach Collar 07/18/23 07:30 36.4 C L 75 18 102/65 100 Trach Collar O2 Flow Rate FiO2 07/18/23 15:19 7 07/18/23 10:22 28 07/18/23 10:02 7 28 07/18/23 07:49 28 07/18/23 07:30 7 (1) Aspiration pneumonia Laterality: right Lung location: lower lobe of lung
[2023-07-18] MEDS: ENOXAPARIN INJ 40 MG/0.4 ML SYR SQ SCH (20:38)
[2023-07-19 08:04] LABS: Basophils # (auto) 0.06 K/uL (0.00-0.20); Basophils % (auto) 0.9 %; Eosinophils # (auto) 0.41 K/uL (0.00-0.50); Eosinophils % (auto) 5.9 %; Hematocrit (blood only) 29.6 % (42.0-52.0); Hemoglobin 9.7 g/dl (14.0-18.0); Immature Granulocytes # (auto) 0.02 K/uL (0.01-0.20); Immature Granulocytes % (auto) 0.3 %; Lymphocytes % (auto) 27.2 %; Mean Corpuscular Hemoglobin 30.2 pg (25.0-34.0); Mean Corpuscular Hgb Conc 32.8 g/dL (32.0-36.0); Mean Corpuscular Volume 92.2 fL (80.0-100.0); Monocytes # (auto) 0.95 K/uL (0.11-0.59); Monocytes % (auto) 13.6 %; Neutrophils # (auto) 3.65 K/uL (1.40-6.50); Neutrophils % (auto) 52.1 %; Platelet Count 252 K/uL (130-400); RDW Standard Deviation 50.5 fL (36.4-46.3); Red Blood Count 3.21 M/uL (4.70-6.10); White Blood Count 6.99 K/ul (4.8-10.8)
[2023-07-19 08:28] LABS: BUN Creatinine Ratio 43.4 (10-20); Calcium 9.6 mg/dl (8.6-10.3); Creatinine Clr Calc Pharmacy 110.1 ml/min; Est GFR (African American) 115.8 ml/min; Est GFR (Non-African American) 99.9 ml/min; Potassium 3.9 mmol/L (3.5-5.1)
--- NOTE | 2023-07-19 16:11 | Hospitalist Progress Note ---
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 Patient at [facility] as of 06/30, after stay at [facility] s/p discharge from admission at [facility]. Patient was sent to the ED after dislodgment of the trach tube. Circumstances of dislodged trach are unclear. Trach was replaced by ENT on July 12, 2021 Patient was treated with IV cefepime for total of 7 days (end date July 15, 2023) for aspiration pneumonia/trachitis Currently undergoing self- suctioning, aggressive chest PT, hypertonic nebs Patient was awaiting placement to rehab. There was also discussion with patient's about possible discharge home with hospice/home health. Patient's J-tube clogged on July 18, 2023. Discussed with both GI and surgery; unable to declog. Multiple trials were done by nursing staff to declog. Consultation was done with both GI and surgery team. Discussed with nutrition; can continue to use G-tube for the time being. Discussed with patient's regarding possible next steps; she is very concerned about patient's recurrence of aspiration again. She does not want to get him discharged to rehab or go home without clogged J-tube. Review of care everywhere and as per that patient had GJ tube placed in [facility] in March 2023. Transfer was initiated. Discussed with interventional radiology and hospitalist at [facility]; patient is accepted for transfer. Patient will need to follow-up with radiation oncology for further treatment after discharge from hospital/rehab. #CAD status CABG/stent/PVDcontinue on aspirin, Lipitor #PAF, patient NSRnot on any medication #hypertension, stablestable; not on any medication presently #hyperlipidemia, on statin Rx #hypothyroidism, TSH 6.2 on admission #Anemia of chronic disease, hemoglobin at baseline #DM2 on oral medications, well-controlled as of recent hemoglobin A1c of 6 last month #GERD, on PPI #past tobacco abuse DVT prophylaxis. Lovenox subcu DNR as per patient's prior directives. Dispositiontransfer to [facility] for exchange of GJ tube Time spent evaluating patient, direct bedside care, chart review, placing orders, interpretation of diagnostic studies, discussion with consultants, patient, and family members, as well as other required patient management activities is 75 minutes Please note the above document was generated using voice recognition software. It may contain grammatical, syntax or spelling errors. Any formal questions or concerns about the content, text or information contained within the body of this dictation should be directly addressed to the provider for clarification Admission and Anticipated Discharge Date Admission Date: July 03, 2023 Subjective Patient seen and examined at bedside. He continues to have clogged tube; multiple attempts were tried without much success. Review of Systems Review of Systems: All systems reviewed & are unremarkable except as noted in Subjective Physical Exam Physical Exam: Constitutional: Awake, alert oriented x 3; not in distress. Respiratory: Occasional rhonchi heard. Necktracheostomy in place with trach collar Cardiovascular: RRR, no murmur, no edema Vessels: no JVD or carotid bruit Chest: normal inspection of chest Abdomen: normal bowel sounds, soft, nontender, no hepatosplenomegaly Musculoskeletal: no cyanosis or clubbing, extremities motor strength 5/5 Skin: no rashes, warm and dry normal turgor Neurologic: PERRL, EOMI, accommodation nl, no face palsy, no dysarthria CN's II- XI intact bilaterally and moves all extremities Results & Data Results & Data Vital Signs (Past 12 Hours) Vital Signs Temp Pulse Resp BP Pulse Ox O2 Del Method O2 Flow Rate 07/19/23 08:26 36.5 C 71 16 97/52 L 97 Trach Collar 7 07/19/23 07:21 71 18 93 Trach Collar FiO2 07/19/23 08:26 07/19/23 07:21 28 (1) Aspiration pneumonia Laterality: right Lung location: lower lobe of lung
--- NOTE | 2023-07-19 17:28 | Discharge Summary ---
Date of Service July 19, 2023 Admission HPI Per Admitting Provider History obtained from patient, family, and records. Limited history from patient secondary to nonverbal state secondary to tracheostomy. 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 Patient admitted at [facility] under ENT service for stridor from May 26 to 2023. 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 Patient underwent tracheostomy, direct laryngoscopy and biopsy. 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 Patient declined surgery and chemotherapy recommendations. Patient opted for palliative radiation. Patient discharged to [facility] rehab facility in [place] where he stayed up until June 30, 2023. Patient transferred to the local [facility] 2 days ago to complete rehab. Prior admissions at [facility] and rehab facility in [place] marked by tracheostomy tube dislodgment episodes and aspiration pneumonia requiring treatment. Patient n.p.o. but allowed ice chips as per [employer] SYSTEMS TECHNICIAN instructions as per . Patient tracheostomy tube noted to be dislodged on routine check last night by [facility] staff. Patient without any complaints as per account. Unsuccessful replacement of dislodged tracheostomy tube. Patient brought to the ER for evaluation. Smaller tracheostomy tube placed by ER provider due to unsuccessful attempt to replace patient's original tube. Junky tracheostomy secretions noted during procedure. Zosyn administered at the ER for possible aspiration pneumonia. Patient denies chest pain, SOB, abdominal pain symptoms. 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 Discharge Data Allergies Allergy/AdvReac Type Severity Reaction Status Date / Time Sulfa (Sulfonamide Allergy Intermediate RASH Verified 07/01/23 18:44 Antibiotics) Consultations 07/02/23 03:24 Consult Otolaryngology (Head and Neck) Routine 07/02/23 16:46 Consult Pulmonology Routine 07/05/23 08:37 Consult Infectious Diseases Routine 07/12/23 04:20 Consult Otolaryngology (Head and Neck) Routine 07/18/23 13:12 Consult Gastroenterology Routine Ordered Studies 07/01/23 22:56 CT chest diagnostic [facility] Hospital Course (1) Aspiration pneumonia: Mr Dash is an 82 year old gentleman history of laryngeal cancer s/p radiation 2006 now with 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 Patient at [facility] as of 06/30, after stay at [facility] s/p discharge from admission at [facility]. Patient was sent to the ED after dislodgment of the trach tube. Circumstances of dislodged trach are unclear. Trach was replaced by ENT on July 12, 2021 Patient was treated with IV cefepime for total of 7 days (end date July 15, 2023) for aspiration pneumonia/trachitis Currently undergoing self- suctioning, aggressive chest PT, hypertonic nebs Patient was awaiting placement to rehab. There was also discussion with patient's about possible discharge home with hospice/home health. Patient's J-tube clogged on July 18, 2023. Discussed with both GI and surgery; unable to declog. Multiple trials were done by nursing staff to declog. Consultation was done with both GI and surgery team. Discussed with nutrition; can continue to use G-tube for the time being. Discussed with patient's regarding possible next steps; she is very concerned about patient's recurrence of aspiration again. She does not want to get him discharged to rehab or go home without clogged J-tube. Review of care everywhere and as per that patient had GJ tube placed in [facility] in March 2023. Transfer was initiated. [facility]; [facility] is [facility] for transfer. Patient will need to follow-up with radiation oncology for further treatment after discharge from hospital/rehab. #CAD status CABG/stent/PVDcontinue on aspirin, Lipitor #PAF, patient NSRnot on any medication #hypertension, stablestable; not on any medication presently #hyperlipidemia, on statin Rx #hypothyroidism, TSH 6.2 on admission #Anemia of chronic disease, hemoglobin at baseline #DM2 on oral medications, well-controlled as of recent hemoglobin A1c of 6 last month #GERD, on PPI #past tobacco abuse DVT prophylaxis. Lovenox subcu DNR as per patient's prior directives. Dispositiontransfer to [facility] for exchange of GJ tube Time spent evaluating patient, direct bedside care, chart review, placing orders, interpretation of diagnostic studies, discussion with consultants, patient, and family members, as well as other required patient management activities is 75 minutes Please note the above document was generated using voice recognition software. It may contain grammatical, syntax or spelling errors. Any formal questions or concerns about the content, text or information contained within the body of this dictation should be directly addressed to the provider for clarification Total Time Total Time Spent Total Time Spent (In Minutes): 45 Total Time Includes: Examination of the Patient, Discharge Planning, Medication Reconciliation, Communication With Other Providers and Other Discharge Plan Discharge Items Reason For Visit: HCAP, DISLODGED TRACH TUBE Follow-up/Referrals: PCP,NO [Primary Care Provider] - Medications and DC Order Prescriptions: No Action levothyroxine 75 mcg Tablet 75 mcg feeding tube QAM pantoprazole 40 mg Tablet,Delayed Release (Dr/Ec) 40 mg PO QAM Rx Instructions: VIA FEEDING TUBE metformin 1,000 mg Tablet 1,000 mg feeding tube BID amoxicillin 500 mg Tablet 2,000 mg PO UD PRN (Reason: prior to dental appointment) acetaminophen [Tylenol] 325 mg Tablet 650 mg feeding tube Q6H MDD 3 GRAMS APAP/24 HOURS PRN (Reason: PAIN/FEVER >101) atorvastatin 10 mg Tablet 10 mg feeding tube HS aspirin 81 mg Tablet,Chewable 81 mg feeding tube DAILY Lactobacillus rhamnosus GG 10 billion cell Capsule 1 cap feeding tube DAILY doxazosin 2 mg Tablet 2 mg feeding tube HS trolamine salicylate 10 % Cream 1 applic TOPICAL BID Rx Instructions: APPLY TO UPPER AND LOWER EXTREMITIES. DO NOT COVER OR WRAP AREAS. chlorhexidine gluconate 0.12 % Mouthwash 15 ml BUCCAL BID Rx Instructions: SWISH AND SPIT Osmolite 1.5 Yonis 0.06 gram-1.5 kcal/mL Liquid 250 ea feeding tube 5XD Rx Instructions: 250 ML VIA FEEDING TUBE Pantoprazole Liquid 40 mg G-tube DAILY Rx Instructions: STRENGTH 4 MG/ML--DOSE 10 ML DAILY. Admission Data Admit Date/Time: 07/03/23 14:37 Attending Provider: Jcarlos Hein Admit Provider: Carlita Armstrong Primary Care Provider: PCP,NO Other Providers: Ansley Anderson; Deya Kendrick; Josse Cortes; Jennifer Gallagher; [facility] [place]; Brandon Doss II; [facility]; Ry Bergeron; Sara Montenegro
[2023-07-20 07:01] LABS: Basophils # (auto) 0.04 K/uL (0.00-0.20); Basophils % (auto) 0.6 %; Eosinophils # (auto) 0.33 K/uL (0.00-0.50); Eosinophils % (auto) 4.8 %; Hematocrit (blood only) 30.6 % (42.0-52.0); Hemoglobin 9.8 g/dl (14.0-18.0); Immature Granulocytes # (auto) 0.02 K/uL (0.01-0.20); Immature Granulocytes % (auto) 0.3 %; Lymphocytes # (auto) 1.76 K/uL (1.20-3.40); Lymphocytes % (auto) 25.4 %; Mean Corpuscular Hemoglobin 30.2 pg (25.0-34.0); Mean Corpuscular Volume 94.2 fL (80.0-100.0); Mean Platelet Volume 9.9 fL (9.4-12.4); Monocytes # (auto) 1.07 K/uL (0.11-0.59); Monocytes % (auto) 15.4 %; Neutrophils # (auto) 3.71 K/uL (1.40-6.50); Neutrophils % (auto) 53.5 %; Platelet Count 227 K/uL (130-400); RDW Coefficient of Variation 14.9 % (11.5-14.5); RDW Standard Deviation 51.5 fL (36.4-46.3); Red Blood Count 3.25 M/uL (4.70-6.10); White Blood Count 6.93 K/ul (4.8-10.8)
[2023-07-20 08:13] LABS: BUN Creatinine Ratio 45.2 (10-20); Calcium 9.5 mg/dl (8.6-10.3); Creatinine Clr Calc Pharmacy 94.1 ml/min; Est GFR (African American) 108.6 ml/min; Est GFR (Non-African American) 93.7 ml/min; Potassium 4.1 mmol/L (3.5-5.1)
--- NOTE | 2023-07-20 14:07 | Discharge Summary ---
Date of Service July 20, 2023 Discharge Exam Constitutional: Awake, alert oriented x 3; not in distress. Respiratory: Occasional rhonchi heard. Necktracheostomy in place with trach collar Cardiovascular: RRR, no murmur, no edema Vessels: no JVD or carotid bruit Chest: normal inspection of chest Abdomen: normal bowel sounds, soft, nontender, no hepatosplenomegaly Musculoskeletal: no cyanosis or clubbing, extremities motor strength 5/5 Skin: no rashes, warm and dry normal turgor Neurologic: PERRL, EOMI, accommodation nl, no face palsy, no dysarthria CN's II- XI intact bilaterally and moves all extremities Discharge Data Allergies Allergy/AdvReac Type Severity Reaction Status Date / Time Sulfa (Sulfonamide Allergy Intermediate RASH Verified 07/01/23 18:44 Antibiotics) Consultations 07/02/23 03:24 Consult Otolaryngology (Head and Neck) Routine 07/02/23 16:46 Consult Pulmonology Routine 07/05/23 08:37 Consult Infectious Diseases Routine 07/12/23 04:20 Consult Otolaryngology (Head and Neck) Routine 07/18/23 13:12 Consult Gastroenterology Routine 07/19/23 18:18 Burn CD for patient Routine Ordered Studies 07/01/23 22:56 CT chest diagnostic wo con Stat Hospital Course (1) Aspiration pneumonia: Mr Dash is an 82 year old gentleman 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 Patient at [facility] as of 06/30, after stay at [facility] s/p discharge from admission at [facility]. Patient was sent to the ED after dislodgment of the trach tube. Circumstances of dislodged trach are unclear. Trach was replaced by ENT on July 12, 2021 Patient was treated with IV cefepime for total of 7 days (end date July 15, 2023) for aspiration pneumonia/trachitis Currently undergoing self- suctioning, aggressive chest PT, hypertonic nebs Patient was awaiting placement to rehab. There was also discussion with patient's about possible discharge home with hospice/home health. Patient's J-tube clogged on July 18, 2023. Discussed with both GI and surgery; unable to declog. Multiple trials were done by nursing staff to declog. Consultation was done with both GI and surgery team. Discussed with nutrition; can continue to use G-tube for the time being. Discussed with patient's regarding possible next steps; she is very concerned about patient's recurrence of aspiration again. She does not want to get him discharged to rehab or go home with a clogged J-tube. Review of care everywhere and as per that patient had GJ tube placed in [facility] in March 2023. Transfer was initiated. Discussed with interventional radiology and hospitalist at [facility] ; patient is accepted for transfer. Patient will need to follow-up with radiation oncology for further treatment after discharge from hospital/rehab. Tube feeding to be on hold during transport #CAD status CABG/stent/PVDcontinue on aspirin, Lipitor #PAF, patient NSRnot on any medication #hypertension, stablestable; not on any medication presently #hyperlipidemia, on statin Rx #hypothyroidism, TSH 6.2 on admission #Anemia of chronic disease, hemoglobin at baseline #DM2 on oral medications, well-controlled as of recent hemoglobin A1c of 6 last month #GERD, on PPI #past tobacco abuse DVT prophylaxis. Lovenox subcu DNR as per patient's prior directives. Dispositiontransfer to [facility] for exchange of GJ tube Please note the above document was generated using voice recognition software. It may contain grammatical, syntax or spelling errors. Any formal questions or concerns about the content, text or information contained within the body of this dictation should be directly addressed to the provider for clarification Discharge Plan Discharge Items Patient Disposition: Transfer Acute Care Hospital Reason For Visit: HCAP, DISLODGED TRACH TUBE Discharge Diagnosis: Pneumonia Dislodged trach tube Activity: Resume your previous activity Non-emergency contact: Primary Care Provider Call non-emergency contact if: you have any medication questions and your symptoms worsen Follow-up/Referrals: PCP,NO [Primary Care Provider] - Diet: Nothing by Mouth Addtl Attending Provider Instructions: Date of Service: July 19, 2023 Current Inpatient Medications Acetaminophen (Acetaminophen 325 Mg Tab) 650 mg PEG Q6H PRN PRN Reason: PAIN/FEVER >101 Stop: 08/01/23 04:25 Albuterol (Albut/Ipratrop 3mg/0.5mg Neb 3 Ml Vial) 3 ml NEB BIDR [facility]; Protocol Stop: 08/01/23 18:59 Last Admin: 07/19/23 07:20 Dose: 3 ml Aspirin (Aspirin 81 Mg Chew) 81 mg PEG DAILY CRYSTAL Stop: 08/01/23 08:59 Last Admin: 07/19/23 09:14 Dose: 81 mg Atorvastatin Calcium (Atorvastatin 10 Mg Tab) 10 mg PEG HS [facility] Stop: 08/01/23 20:59 Last Admin: 07/18/23 20:31 Dose: 10 mg Chlorhexidine Gluconate (Chlorhexidine Gluconate 0.12% 480 Ml) 15 ml MT TID [facility] Stop: 08/11/23 08:59 Last Admin: 07/19/23 14:31 Dose: 15 ml Doxazosin Mesylate (Doxazosin Mesylate Tab 2 Mg Tab) 2 mg PEG HS [facility] Stop: 08/01/23 20:59 Last Admin: 07/18/23 20:31 Dose: 2 mg Enoxaparin Sodium (Enoxaparin Inj 40 Mg/0.4 Ml Syr) 40 mg SQ Q24H [facility] Stop: 08/14/23 19:59 Last Admin: 07/18/23 20:38 Dose: 40 mg Promethazine HCl (Phenergan) 6.25 mg in 50.25 mls @ 201 mls/hr IV Q6H PRN PRN Reason: Nausea And Vomiting Stop: 08/01/23 03:55 Lactobacillus Acidophilus (Lactobacillus Acidophilus 1 Gm Pack) 1 gm PEG DAILY [facility] Stop: 08/01/23 08:59 Last Admin: 07/19/23 09:15 Dose: 1 gm Lansoprazole (Lansoprazole 30 Mg Soltab) 30 mg PEG QAM [facility]; Protocol Stop: 08/01/23 08:59 Last Admin: 07/19/23 09:15 Dose: 30 mg Levothyroxine Sodium (Levothyroxine Sodium 75 Mcg Tablet) 75 mcg PEG DAILYBB [facility] Stop: 08/01/23 06:29 Last Admin: 07/19/23 05:50 Dose: 75 mcg Morphine Sulfate (Morphine Sulfate 2 Mg/Ml Carp) 2 mg IV Q3H PRN PRN Reason: Pain Stop: 07/26/23 04:55 Nutritional Formula (Nutren Liqd 2.0 1,000 Ml Bag) 1,000 ml GT UD [facility]; Protocol Stop: 08/17/23 13:29 Last Admin: 07/19/23 15:33 Dose: 1,000 ml Polyethylene Glycol (Polyethylene (Miralax) 17 Gm Pack) 17 gm PEG DAILY [facility] Stop: 08/02/23 08:59 Last Admin: 07/19/23 09:16 Dose: Not Given Senna/Docusate Sodium (Docusate Sodium/Senna 50/8.6mg Tab) 1 tab PEG QAM [facility] Stop: 08/02/23 08:59 Last Admin: 07/19/23 09:15 Dose: 1 tab Sodium Chloride (Sodium Chlor 7% 4 Ml Neb) 4 ml NEB BIDR [facility] Stop: 08/01/23 18:59 Last Admin: 07/19/23 07:20 Dose: 4 ml Sterile Water (Tube Feeding Water Flush) 175 ml GT Q4H [facility] Stop: 08/17/23 13:12 Last Admin: 07/19/23 16:29 Dose: 175 ml Pending Studies at Discharge: No Stand-Alone Forms: My [facility] Skilled Items Patient informed of condition?: No DNR: Yes Discharge Level of Care: Other Communicable Disease: No Discharge Prognosis: Stable Lines: None Urinary Catheter: No Medications and DC Order Prescriptions: Continued levothyroxine 75 mcg Tablet 75 mcg feeding tube QAM pantoprazole 40 mg Tablet,Delayed Release (Dr/Ec) 40 mg PO QAM Rx Instructions: VIA FEEDING TUBE metformin 1,000 mg Tablet 1,000 mg feeding tube BID amoxicillin 500 mg Tablet 2,000 mg PO UD PRN (Reason: prior to dental appointment) acetaminophen [Tylenol] 325 mg Tablet 650 mg feeding tube Q6H MDD 3 GRAMS APAP/24 HOURS PRN (Reason: PAIN/FEVER >101) atorvastatin 10 mg Tablet 10 mg feeding tube HS aspirin 81 mg Tablet,Chewable 81 mg feeding tube DAILY Lactobacillus rhamnosus GG 10 billion cell Capsule 1 cap feeding tube DAILY doxazosin 2 mg Tablet 2 mg feeding tube HS trolamine salicylate 10 % Cream 1 applic TOPICAL BID Rx Instructions: APPLY TO UPPER AND LOWER EXTREMITIES. DO NOT COVER OR WRAP AREAS. chlorhexidine gluconate 0.12 % Mouthwash 15 ml BUCCAL BID Rx Instructions: SWISH AND SPIT Osmolite 1.5 Yonis 0.06 gram-1.5 kcal/mL Liquid 250 ea feeding tube 5XD Rx Instructions: 250 ML VIA FEEDING TUBE Pantoprazole Liquid 40 mg G-tube DAILY Rx Instructions: STRENGTH 4 MG/ML--DOSE 10 ML DAILY. Discharge Orders: Discharge Order (Routine); Ordered 07/21/23 Ordered By: Jcarlos Hein Admission Data Admit Date/Time: 07/03/23 14:37 Attending Provider: Jcarlos Hein Admit Provider: Carlita Armstrong Primary Care Provider: PCP,NO Other Providers: Ansley Anderson; Deya Kendrick; Josse Cortes; Jennifer Gallagher; [facility] [place]; Brandon Doss II; [facility]; Ry Bergreon; Sara Montenegro
--- NOTE | 2023-07-20 14:07 | Hospitalist Progress Note ---
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 ED on 07/02 after tracheostomy tube dislodged. Patient at [facility] as of 06/30, after stay at [facility] s/p discharge from admission at [facility]. Patient was sent to the ED after dislodgment of the trach tube. Circumstances of dislodged trach are unclear. Trach was replaced by ENT on July 12, 2021 Patient was treated with IV cefepime for total of 7 days (end date July 15, 2023) for aspiration pneumonia/trachitis Currently undergoing self- suctioning, aggressive chest PT, hypertonic nebs Patient was awaiting placement to rehab. There was also discussion with patient's about possible discharge home with hospice/home health. Patient's J-tube clogged on July 18, 2023. Discussed with both GI and surgery; unable to declog. Multiple trials were done by nursing staff to declog. Consultation was done with both GI and surgery team. Discussed with nutrition; can continue to use G-tube for the time being. Discussed with patient's regarding possible next steps; she is very concerned about patient's recurrence of aspiration again. She does not want to get him discharged to rehab or go home with a clogged J-tube. Review of care everywhere and as per that patient had GJ tube placed in [facility] in March 2023. Transfer was initiated. Discussed with interventional radiology and hospitalist at [facility] ; patient is accepted for transfer. Patient will need to follow-up with radiation oncology for further treatment after discharge from hospital/rehab. Tube feeding to be on hold during transport #CAD status CABG/stent/PVDcontinue on aspirin, Lipitor #PAF, patient NSRnot on any medication #hypertension, stablestable; not on any medication presently #hyperlipidemia, on statin Rx #hypothyroidism, TSH 6.2 on admission #Anemia of chronic disease, hemoglobin at baseline #DM2 on oral medications, well-controlled as of recent hemoglobin A1c of 6 last month #GERD, on PPI #past tobacco abuse DVT prophylaxis. Lovenox subcu DNR as per patient's prior directives. [facility] Please note the above document was generated using voice recognition software. It may contain grammatical, syntax or spelling errors. Any formal questions or concerns about the content, text or information contained within the body of this dictation should be directly addressed to the provider for clarification Admission and Anticipated Discharge Date Admission Date: July 03, 2023 Subjective Patient seen and examined at bedside. Comfortable; not in distress. Denies fever, chills, chest pain, shortness of breath, abdominal pain or urinary symptoms. No significant overnight events Review of Systems Review of Systems: All systems reviewed & are unremarkable except as noted in Subjective Physical Exam Physical Exam: Constitutional: Awake, alert oriented x 3; not in distress. Respiratory: Occasional rhonchi heard. Necktracheostomy in place with trach collar Cardiovascular: RRR, no murmur, no edema Vessels: no JVD or carotid bruit Chest: normal inspection of chest Abdomen: normal bowel sounds, soft, nontender, no hepatosplenomegaly Musculoskeletal: no cyanosis or clubbing, extremities motor strength 5/5 Skin: no rashes, warm and dry normal turgor Neurologic: PERRL, EOMI, accommodation nl, no face palsy, no dysarthria CN's II- XI intact bilaterally and moves all extremities Results & Data Results & Data Vital Signs (Past 12 Hours) Vital Signs Temp Pulse Resp BP BP Pulse Ox O2 Del Method 07/20/23 07:42 75 137/75 100 Trach Collar 07/20/23 07:32 93 H 18 94 Trach Collar 07/20/23 07:30 Trach Collar 07/20/23 07:07 36.8 C 80 16 88/55 L 81/52 L 100 Room Air O2 Flow Rate FiO2 07/20/23 07:42 7 07/20/23 07:32 6 28 07/20/23 07:30 7 07/20/23 07:07 (1) Aspiration pneumonia Laterality: right Lung location: lower lobe of lung
--- NOTE | 2023-07-21 14:33 | Discharge Summary ---
Date of Service July 21, 2023 Admission HPI Per Admitting Provider History obtained from patient, family, and records. Limited history from patient secondary to nonverbal state secondary to tracheostomy. 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 Patient admitted at [facility] under ENT service for stridor from May 26 to 2023. 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 Patient underwent tracheostomy, direct laryngoscopy and biopsy. 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 Patient declined surgery and chemotherapy recommendations. Patient opted for palliative radiation. Patient discharged to [facility] rehab facility in [place] where he stayed up until June 30, 2023. Patient transferred to the local [facility] 2 days ago to complete rehab. Prior admissions at [facility] [place] and rehab facility in [place] marked by tracheostomy tube dislodgment episodes and aspiration pneumonia requiring treatment. Patient n.p.o. but allowed ice chips as per JOWL TRIMMER instructions as per . Patient tracheostomy tube noted to be dislodged on routine check last night by [facility] staff. Patient without any complaints as per account. Unsuccessful replacement of dislodged tracheostomy tube. Patient brought to the ER for evaluation. Smaller tracheostomy tube placed by ER provider due to unsuccessful attempt to replace patient's original tube. Junky tracheostomy secretions noted during procedure. Zosyn administered at the ER for possible aspiration pneumonia. Patient denies chest pain, SOB, abdominal pain symptoms. Admission Exam Per Admitting Provider GENERAL: Comfortable, chronically ill, no respiratory distress SKIN: Pallor, warm HEENT: Alopecia, pale palpebral conjunctivae, no ptosis, dry buccal mucosa NECK : Supple, tracheostomy tube in place, no tenderness CHEST : Decreased breath sounds, no tenderness HEART : RRR, no obvious murmurs ABDOMEN: Some distention, G-tube in place nontender EXTREMITIES : No LE swelling/tenderness, no other conspicuous deformities noted NEUROLOGIC : Coherent, no facial asymmetry, no other gross focality Principal Diagnosis Dislodged trach tube Trachitis Aspiration pneumonia Discharge Exam Constitutional: Awake, alert oriented x 3; not in distress. Respiratory: Occasional rhonchi heard. Necktracheostomy in place with trach collar Cardiovascular: RRR, no murmur, no edema Vessels: no JVD or carotid bruit Chest: normal inspection of chest Abdomen: normal bowel sounds, soft, nontender, no hepatosplenomegaly Musculoskeletal: no cyanosis or clubbing, extremities motor strength 5/5 Skin: no rashes, warm and dry normal turgor Neurologic: PERRL, EOMI, accommodation nl, no face palsy, no dysarthria CN's II- XI intact bilaterally and moves all extremities Discharge Data Allergies Allergy/AdvReac Type Severity Reaction Status Date / Time Sulfa (Sulfonamide Allergy Intermediate RASH Verified 07/01/23 18:44 Antibiotics) Consultations 07/02/23 03:24 Consult Otolaryngology (Head and Neck) Routine 07/02/23 16:46 Consult Pulmonology Routine 07/05/23 08:37 Consult Infectious Diseases Routine 07/12/23 04:20 Consult Otolaryngology (Head and Neck) Routine 07/18/23 13:12 Consult Gastroenterology Routine 07/19/23 18:18 Burn CD for patient Routine Ordered Studies 07/01/23 22:56 CT chest diagnostic wo con Stat Hospital Course (1) Aspiration pneumonia: Mr Dash is an 82 year old gentleman 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 Patient at [facility] as of 06/30, after stay at [facility] s/p discharge from admission at [facility] [place]. Patient was sent to the ED after dislodgment of the trach tube. Circumstances of dislodged trach are unclear. Trach was replaced by ENT on July 12, 2021 Patient was treated with IV cefepime for total of 7 days (end date July 15, 2023) for aspiration pneumonia/trachitis Currently undergoing self- suctioning, aggressive chest PT, hypertonic nebs Patient was awaiting placement to rehab. There was also discussion with patient's about possible discharge home with hospice/home health. Patient's J-tube clogged on July 18, 2023. Discussed with both GI and surgery; unable to declog. Multiple trials were done by nursing staff to [facility]. Consultation was done with both GI and surgery team. Discussed with nutrition; can continue to use G-tube for the time being. Discussed with patient's regarding possible next steps; she is very concerned about patient's recurrence of aspiration again. She does not want to get him discharged to rehab or go home with a clogged J-tube. Review of care everywhere and as per that patient had GJ tube placed in [facility] in March 2023. Transfer was initiated. Discussed with interventional radiology and hospitalist at [facility] ; patient is accepted for transfer. Patient will need to follow-up with radiation oncology for further treatment after discharge from hospital/rehab. Tube feeding to be on hold during transport #CAD status CABG/stent/PVDcontinue on aspirin, Lipitor #PAF, patient NSRnot on any medication #hypertension, stablestable; not on any medication presently #hyperlipidemia, on statin Rx #hypothyroidism, TSH 6.2 on admission #Anemia of chronic disease, hemoglobin at baseline #DM2 on oral medications, well-controlled as of recent hemoglobin A1c of 6 last month #GERD, on PPI #past tobacco abuse DVT prophylaxis. Lovenox subcu DNR as per patient's prior directives. Dispositiontransfer to [facility] for exchange of GJ tube Please note the above document was generated using voice recognition software. It may contain grammatical, syntax or spelling errors. Any formal questions or concerns about the content, text or information contained within the body of this dictation should be directly addressed to the provider for clarification Discharge Plan Discharge Items Patient Disposition: Transfer Acute Care Hospital Reason For Visit: HCAP, DISLODGED TRACH TUBE Discharge Diagnosis: Pneumonia Dislodged trach tube Activity: Resume your previous activity Non-emergency contact: Primary Care Provider Call non-emergency contact if: you have any medication questions and your symptoms worsen Follow-up/Referrals: PCP,NO [Primary Care Provider] - Diet: Nothing by Mouth Addtl Attending Provider Instructions: Date of Service: July 19, 2023 Current Inpatient Medications Acetaminophen (Acetaminophen 325 Mg Tab) 650 mg PEG Q6H PRN PRN Reason: PAIN/FEVER >101 Stop: 08/01/23 04:25 Albuterol (Albut/Ipratrop 3mg/0.5mg Neb 3 Ml Vial) 3 ml NEB BIDR [facility]; Protocol Stop: 08/01/23 18:59 Last Admin: 07/19/23 07:20 Dose: 3 ml Aspirin (Aspirin 81 Mg Chew) 81 mg PEG DAILY [facility] Stop: 08/01/23 08:59 Last Admin: 07/19/23 09:14 Dose: 81 mg Atorvastatin Calcium (Atorvastatin 10 Mg Tab) 10 mg PEG HS [facility] Stop: 08/01/23 20:59 Last Admin: 07/18/23 20:31 Dose: 10 mg Chlorhexidine Gluconate (Chlorhexidine Gluconate 0.12% 480 Ml) 15 ml MT TID [facility] Stop: 08/11/23 08:59 Last Admin: 07/19/23 14:31 Dose: 15 ml Doxazosin Mesylate (Doxazosin Mesylate Tab 2 Mg Tab) 2 mg PEG HS [facility] Stop: 08/01/23 20:59 Last Admin: 07/18/23 20:31 Dose: 2 mg Enoxaparin Sodium (Enoxaparin Inj 40 Mg/0.4 Ml Syr) 40 mg SQ Q24H [facility] Stop: 08/14/23 19:59 Last Admin: 07/18/23 20:38 Dose: 40 mg Promethazine HCl (Phenergan) 6.25 mg in 50.25 mls @ 201 mls/hr IV Q6H PRN PRN Reason: Nausea And Vomiting Stop: 08/01/23 03:55 Lactobacillus Acidophilus (Lactobacillus Acidophilus 1 Gm Pack) 1 gm PEG DAILY [facility] Stop: 08/01/23 08:59 Last Admin: 07/19/23 09:15 Dose: 1 gm Lansoprazole (Lansoprazole 30 Mg Soltab) 30 mg PEG QAM [facility]; Protocol Stop: 08/01/23 08:59 Last Admin: 07/19/23 09:15 Dose: 30 mg Levothyroxine Sodium (Levothyroxine Sodium 75 Mcg Tablet) 75 mcg PEG DAILYBB [facility] Stop: 08/01/23 06:29 Last Admin: 07/19/23 05:50 Dose: 75 mcg Morphine Sulfate (Morphine Sulfate 2 Mg/Ml Carp) 2 mg IV Q3H PRN PRN Reason: Pain Stop: 07/26/23 04:55 Nutritional Formula (Nutren Liqd 2.0 1,000 Ml Bag) 1,000 ml GT UD [facility]; Protocol Stop: 08/17/23 13:29 Last Admin: 07/19/23 15:33 Dose: 1,000 ml Polyethylene Glycol (Polyethylene (Miralax) 17 Gm Pack) 17 gm PEG DAILY [facility] Stop: 08/02/23 08:59 Last Admin: 07/19/23 09:16 Dose: Not Given Senna/Docusate Sodium (Docusate Sodium/Senna 50/8.6mg Tab) 1 tab PEG QAM [facility] Stop: 08/02/23 08:59 Last Admin: 07/19/23 09:15 Dose: 1 tab Sodium Chloride (Sodium Chlor 7% 4 Ml Neb) 4 ml NEB BIDR [facility] Stop: 08/01/23 18:59 Last Admin: 07/19/23 07:20 Dose: 4 ml Sterile Water (Tube Feeding Water Flush) 175 ml GT Q4H [facility] Stop: 08/17/23 13:12 Last Admin: 07/19/23 16:29 Dose: 175 ml Pending Studies at Discharge: No Stand-Alone Forms: [facility] Skilled Items Patient informed of condition?: No DNR: Yes Discharge Level of Care: Other Communicable Disease: No Discharge Prognosis: Stable Lines: None Urinary Catheter: No Medications and DC Order Prescriptions: Continued levothyroxine 75 mcg Tablet 75 mcg feeding tube QAM pantoprazole 40 mg Tablet,Delayed Release (Dr/Ec) 40 mg PO QAM Rx Instructions: VIA FEEDING TUBE metformin 1,000 mg Tablet 1,000 mg feeding tube BID amoxicillin 500 mg Tablet 2,000 mg PO UD PRN (Reason: prior to dental appointment) acetaminophen [Tylenol] 325 mg Tablet 650 mg feeding tube Q6H MDD 3 GRAMS APAP/24 HOURS PRN (Reason: PAIN/FEVER >101) atorvastatin 10 mg Tablet 10 mg feeding tube HS aspirin 81 mg Tablet,Chewable 81 mg feeding tube DAILY Lactobacillus rhamnosus GG 10 billion cell Capsule 1 cap feeding tube DAILY doxazosin 2 mg Tablet 2 mg feeding tube HS trolamine salicylate 10 % Cream 1 applic TOPICAL BID Rx Instructions: APPLY TO UPPER AND LOWER EXTREMITIES. DO NOT COVER OR WRAP AREAS. chlorhexidine gluconate 0.12 % Mouthwash 15 ml BUCCAL BID Rx Instructions: SWISH AND SPIT Osmolite 1.5 Yonis 0.06 gram-1.5 kcal/mL Liquid 250 ea feeding tube 5XD Rx Instructions: 250 ML VIA FEEDING TUBE Pantoprazole Liquid 40 mg G-tube DAILY Rx Instructions: STRENGTH 4 MG/ML--DOSE 10 ML DAILY. Discharge Orders: Discharge Order (Routine); Ordered 07/21/23 Ordered By: Jcarlos Hein Admission Data Admit Date/Time: 07/03/23 14:37 Attending Provider: Jcarlos Hein Admit Provider: Carlita Armstrong Primary Care Provider: PCP,NO Other Providers: Ansley Anderson; Deya Kendrick; Josse Cortes; Jennifer Gallagher; [facility] [place]; Brandon Doss II; [facility]; Ry Bergeron; Sara Montenegro
--- NOTE | 2023-07-21 14:34 | Hospitalist Progress Note ---
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 Patient at [facility] as of 06/30, after stay at [facility] s/p [place] [facility] [place] Patient was sent to the ED after dislodgment of the trach tube. Circumstances of dislodged trach are unclear. Trach was replaced by ENT on July 12, 2021 Patient was treated with IV cefepime for total of 7 days (end date July 15, 2023) for aspiration pneumonia/trachitis Currently undergoing self- suctioning, aggressive chest PT, hypertonic nebs Patient was awaiting placement to rehab. There was also discussion with patient's about possible discharge home with hospice/home health. Patient's J-tube clogged on July 18, 2023. Discussed with both GI and surgery; unable to declog. Multiple trials were done by nursing staff to declog. Consultation was done with both GI and surgery team. Discussed with nutrition; can continue to use G-tube for the time being. Discussed with patient's regarding possible next steps; she is very concerned about patient's recurrence of aspiration again. She does not want to get him discharged to rehab or go home with a clogged J-tube. Review of care everywhere and as per that patient had GJ tube placed in [facility] in March 2023. Transfer was initiated. Discussed with interventional radiology and hospitalist at [facility] ; patient is accepted for transfer. Patient will need to follow-up with radiation oncology for further treatment after discharge from hospital/rehab. Tube feeding to be on hold during transport #CAD status CABG/stent/PVDcontinue on aspirin, Lipitor #PAF, patient NSRnot on any medication #hypertension, stablestable; not on any medication presently #hyperlipidemia, on statin Rx #hypothyroidism, TSH 6.2 on admission #Anemia of chronic disease, hemoglobin at baseline #DM2 on oral medications, well-controlled as of recent hemoglobin A1c of 6 last month #GERD, on PPI #past tobacco abuse DVT prophylaxis. Lovenox subcu DNR as per patient's prior directives. Dispositiontransfer to [facility] for exchange of GJ tube Please note the above document was generated using voice recognition software. It may contain grammatical, syntax or spelling errors. Any formal questions or concerns about the content, text or information contained within the body of this dictation should be directly addressed to the provider for clarification Admission and Anticipated Discharge Date Admission Date: July 03, 2023 Subjective Patient seen and examined at bedside. Comfortable; not in distress. Denies fever, chills, chest pain, shortness of breath, abdominal pain or urinary symptoms. No significant overnight events Review of Systems Review of Systems: All systems reviewed & are unremarkable except as noted in Subjective Physical Exam Physical Exam: Constitutional: Awake, alert oriented x 3; not in distress. Respiratory: Occasional rhonchi heard. Necktracheostomy in place with trach collar Cardiovascular: RRR, no murmur, no edema Vessels: no JVD or carotid bruit Chest: normal inspection of chest Abdomen: normal bowel sounds, soft, nontender, no hepatosplenomegaly Musculoskeletal: no cyanosis or clubbing, extremities motor strength 5/5 Skin: no rashes, warm and dry normal turgor Neurologic: PERRL, EOMI, accommodation nl, no face palsy, no dysarthria CN's II- XI intact bilaterally and moves all extremities Results & Data Results & Data Vital Signs (Past 12 Hours) Vital Signs Temp Pulse Resp BP Pulse Ox O2 Del Method O2 Flow Rate 07/21/23 09:05 59 L 110/68 100 Trach Collar 6 07/21/23 07:40 Trach Collar 6 07/21/23 07:32 36.5 C 63 16 84/53 L 97 Trach Collar 3 07/21/23 07:16 82 18 97 Room Air (1) Aspiration pneumonia Laterality: right Lung location: lower lobe of lung
--- NOTE | 2023-07-22 17:11 | Discharge Summary ---
Date of Service July 22, 2023 Admission HPI Per Admitting Provider History obtained from patient, family, and records. Limited history from patient secondary to nonverbal state secondary to tracheostomy. 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 Patient admitted at [facility] under ENT service for stridor from May 26 to 2023. 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 Patient underwent tracheostomy, direct laryngoscopy and biopsy. 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 Patient declined surgery and chemotherapy recommendations. Patient opted for palliative radiation. Patient discharged to [facility]hab facility in [place] where he stayed up until June 30, 2023. Patient transferred to the local [facility] 2 days ago to complete rehab. [place] [facility] [place] marked by tracheostomy tube dislodgment episodes and aspiration pneumonia requiring treatment. Patient n.p.o. but allowed ice chips as per [employer] instructions as per . Patient tracheostomy tube noted to be dislodged on routine check last night by [facility] staff. Patient without any complaints as per account. Unsuccessful replacement of dislodged tracheostomy tube. Patient brought to the ER for evaluation. Smaller tracheostomy tube placed by ER provider due to unsuccessful attempt to replace patient's original tube. Junky tracheostomy secretions noted during procedure. Zosyn administered at the ER for possible aspiration pneumonia. Patient denies chest pain, SOB, abdominal pain symptoms. Admission Exam Per Admitting Provider GENERAL: Comfortable, chronically ill, no respiratory distress SKIN: Pallor, warm HEENT: Alopecia, pale palpebral conjunctivae, no ptosis, dry buccal mucosa NECK : Supple, tracheostomy tube in place, no tenderness CHEST : Decreased breath sounds, no tenderness HEART : RRR, no obvious murmurs ABDOMEN: Some distention, G-tube in place nontender EXTREMITIES : No LE swelling/tenderness, no other conspicuous deformities noted NEUROLOGIC : Coherent, no facial asymmetry, no other gross focality Principal Diagnosis Dislodged trach tube Trachitis Aspiration pneumonia Discharge Exam Constitutional: Awake, alert oriented x 3; not in distress. Respiratory: Occasional rhonchi heard. Necktracheostomy in place with trach collar Cardiovascular: RRR, no murmur, no edema Vessels: no JVD or carotid bruit Chest: normal inspection of chest Abdomen: normal bowel sounds, soft, nontender, no hepatosplenomegaly Musculoskeletal: no cyanosis or clubbing, extremities motor strength 5/5 Skin: no rashes, warm and dry normal turgor Neurologic: PERRL, EOMI, accommodation nl, no face palsy, no dysarthria CN's II- XI intact bilaterally and moves all extremities Discharge Data Allergies Allergy/AdvReac Type Severity Reaction Status Date / Time Sulfa (Sulfonamide Allergy Intermediate RASH Verified 07/01/23 18:44 Antibiotics) Consultations 07/02/23 03:24 Consult Otolaryngology (Head and Neck) Routine 07/02/23 16:46 Consult Pulmonology Routine 07/05/23 08:37 Consult Infectious Diseases Routine 07/12/23 04:20 Consult Otolaryngology (Head and Neck) Routine 07/18/23 13:12 Consult Gastroenterology Routine 07/19/23 18:18 Burn CD for patient Routine Ordered Studies 07/01/23 22:56 CT chest diagnostic wo con Stat Hospital Course (1) Aspiration pneumonia: Mr Dash is an 82 year old gentleman 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 Patient at [facility] as of 06/30, after stay at [facility] s/p discharge [place] [facility] Patient was sent to the ED after dislodgment of the trach tube. Circumstances of dislodged trach are unclear. Trach was replaced by ENT on July 12, 2021 Patient was treated with IV cefepime for total of 7 days (end date July 15, 2023) for aspiration pneumonia/trachitis Currently undergoing self- suctioning, aggressive chest PT, hypertonic nebs Patient was awaiting placement to rehab. There was also discussion with patient's about possible discharge home with hospice/home health. Patient's J-tube clogged on July 18, 2023. Discussed with both GI and surgery; unable to declog. Multiple trials were done by nursing staff to [facility] [place]. Consultation was done with both GI and surgery team. Discussed with nutrition; can continue to use G-tube for the time being. Discussed with patient's regarding possible next steps; she is very concerned about patient's recurrence of aspiration again. She does not want to get him discharged to rehab or go home with a clogged J-tube. Review of care everywhere and as per that patient had GJ tube placed in [facility] in March 2023. Transfer was initiated. Discussed with interventional radiology and hospitalist at [facility] ; patient is accepted for transfer. Patient will need to follow-up with radiation oncology for further treatment after discharge from hospital/rehab. Tube feeding to be on hold during transport #CAD status CABG/stent/PVDcontinue on aspirin, Lipitor #PAF, patient NSRnot on any medication #hypertension, stablestable; not on any medication presently #hyperlipidemia, on statin Rx #hypothyroidism, TSH 6.2 on admission #Anemia of chronic disease, hemoglobin at baseline #DM2 on oral medications, well-controlled as of recent hemoglobin A1c of 6 last month #GERD, on PPI #past tobacco abuse DVT prophylaxis. Lovenox subcu DNR as per patient's prior directives. Dispositiontransfer to [facility] for exchange of GJ tube Please note the above document was generated using voice recognition software. It may contain grammatical, syntax or spelling errors. Any formal questions or concerns about the content, text or information contained within the body of this dictation should be directly addressed to the provider for clarification Discharge Plan Discharge Items Patient Disposition: Transfer Acute Care Hospital Reason For Visit: HCAP, DISLODGED TRACH TUBE Discharge Diagnosis: Pneumonia Dislodged trach tube Activity: Resume your previous activity Non-emergency contact: Primary Care Provider Call non-emergency contact if: you have any medication questions and your symptoms worsen Follow-up/Referrals: PCP,NO [Primary Care Provider] - Diet: Nothing by Mouth Addtl Attending Provider Instructions: Date of Service: July 19, 2023 Current Inpatient Medications Acetaminophen (Acetaminophen 325 Mg Tab) 650 mg PEG Q6H PRN PRN Reason: PAIN/FEVER >101 Stop: 08/01/23 04:25 Albuterol (Albut/Ipratrop 3mg/0.5mg Neb 3 Ml Vial) 3 ml NEB BIDR [facility]; Protocol Stop: 08/01/23 18:59 Last Admin: 07/19/23 07:20 Dose: 3 ml Aspirin (Aspirin 81 Mg Chew) 81 mg PEG DAILY [facility] Stop: 08/01/23 08:59 Last Admin: 07/19/23 09:14 Dose: 81 mg Atorvastatin Calcium (Atorvastatin 10 Mg Tab) 10 mg PEG HS [facility] Stop: 08/01/23 20:59 Last Admin: 07/18/23 20:31 Dose: 10 mg Chlorhexidine Gluconate (Chlorhexidine Gluconate 0.12% 480 Ml) 15 ml MT TID [facility] Stop: 08/11/23 08:59 Last Admin: 07/19/23 14:31 Dose: 15 ml Doxazosin Mesylate (Doxazosin Mesylate Tab 2 Mg Tab) 2 mg PEG HS [facility] Stop: 08/01/23 20:59 Last Admin: 07/18/23 20:31 Dose: 2 mg Enoxaparin Sodium (Enoxaparin Inj 40 Mg/0.4 Ml Syr) 40 mg SQ Q24H [facility] Stop: 08/14/23 19:59 Last Admin: 07/18/23 20:38 Dose: 40 mg Promethazine HCl (Phenergan) 6.25 mg in 50.25 mls @ 201 mls/hr IV Q6H PRN PRN Reason: Nausea And Vomiting Stop: 08/01/23 03:55 Lactobacillus Acidophilus (Lactobacillus Acidophilus 1 Gm Pack) 1 gm PEG DAILY [facility] Stop: 08/01/23 08:59 Last Admin: 07/19/23 09:15 Dose: 1 gm Lansoprazole (Lansoprazole 30 Mg Soltab) 30 mg PEG QAM [facility]; Protocol Stop: 08/01/23 08:59 Last Admin: 07/19/23 09:15 Dose: 30 mg Levothyroxine Sodium (Levothyroxine Sodium 75 Mcg Tablet) 75 mcg PEG DAILYBB [facility] Stop: 08/01/23 06:29 Last Admin: 07/19/23 05:50 Dose: 75 mcg Morphine Sulfate (Morphine Sulfate 2 Mg/Ml Carp) 2 mg IV Q3H PRN PRN Reason: Pain Stop: 07/26/23 04:55 Nutritional Formula (Nutren Liqd 2.0 1,000 Ml Bag) 1,000 ml GT UD [facility]; Protocol Stop: 08/17/23 13:29 Last Admin: 07/19/23 15:33 Dose: 1,000 ml Polyethylene Glycol (Polyethylene (Miralax) 17 Gm Pack) 17 gm PEG DAILY [facility] Stop: 08/02/23 08:59 Last Admin: 07/19/23 09:16 Dose: Not Given Senna/Docusate Sodium (Docusate Sodium/Senna 50/8.6mg Tab) 1 tab PEG QAM [facility] Stop: 08/02/23 08:59 Last Admin: 07/19/23 09:15 Dose: 1 tab Sodium Chloride (Sodium Chlor 7% 4 Ml Neb) 4 ml NEB BIDR [facility] Stop: 08/01/23 18:59 Last Admin: 07/19/23 07:20 Dose: 4 ml Sterile Water (Tube Feeding Water Flush) 175 ml GT Q4H [facility] Stop: 08/17/23 13:12 Last Admin: 07/19/23 16:29 Dose: 175 ml Pending Studies at Discharge: No Stand-Alone Forms: [facility] Skilled Items Patient informed of condition?: No DNR: Yes Discharge Level of Care: Other Communicable Disease: No Discharge Prognosis: Stable Lines: None Urinary Catheter: No Medications and DC Order Prescriptions: Continued levothyroxine 75 mcg Tablet 75 mcg feeding tube QAM pantoprazole 40 mg Tablet,Delayed Release (Dr/Ec) 40 mg PO QAM Rx Instructions: VIA FEEDING TUBE metformin 1,000 mg Tablet 1,000 mg feeding tube BID amoxicillin 500 mg Tablet 2,000 mg PO UD PRN (Reason: prior to dental appointment) acetaminophen [Tylenol] 325 mg Tablet 650 mg feeding tube Q6H MDD 3 GRAMS APAP/24 HOURS PRN (Reason: PAIN/FEVER >101) atorvastatin 10 mg Tablet 10 mg feeding tube HS aspirin 81 mg Tablet,Chewable 81 mg feeding tube DAILY Lactobacillus rhamnosus GG 10 billion cell Capsule 1 cap feeding tube DAILY doxazosin 2 mg Tablet 2 mg feeding tube HS trolamine salicylate 10 % Cream 1 applic TOPICAL BID Rx Instructions: APPLY TO UPPER AND LOWER EXTREMITIES. DO NOT COVER OR WRAP AREAS. chlorhexidine gluconate 0.12 % Mouthwash 15 ml BUCCAL BID Rx Instructions: SWISH AND SPIT Osmolite 1.5 Yonis 0.06 gram-1.5 kcal/mL Liquid 250 ea feeding tube 5XD Rx Instructions: 250 ML VIA FEEDING TUBE Pantoprazole Liquid 40 mg G-tube DAILY Rx Instructions: STRENGTH 4 MG/ML--DOSE 10 ML DAILY. Discharge Orders: Discharge Order (Routine); Ordered 07/21/23 Ordered By: Jcarlos Hein Admission Data Admit Date/Time: 07/03/23 14:37 Attending Provider: Jcarlos Hein Admit Provider: Carlita Armstrong Primary Care Provider: PCP,NO Other Providers: Ansley Anderson; Deya Kendrick; Josse Cortes; Jennifer Gallagher; [facility] [place]; Brandon Doss II; [facility]; Ry Bergeron; Sara Montenegro
--- NOTE | 2023-07-22 17:39 | Hospitalist Progress Note ---
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 Patient at [facility] as of 06/30, after stay at [facility] s/p discharge from [place] [facility] [place] Patient was sent to the ED after dislodgment of the trach tube. Circumstances of dislodged trach are unclear. Trach was replaced by ENT on July 12, 2021 Patient was treated with IV cefepime for total of 7 days (end date July 15, 2023) for aspiration pneumonia/trachitis Currently undergoing self- suctioning, aggressive chest PT, hypertonic nebs Patient was awaiting placement to rehab. There was also discussion with patient's about possible discharge home with hospice/home health. Patient's J-tube clogged on July 18, 2023. Discussed with both GI and surgery; unable to declog. Multiple trials were done by nursing staff to declog. Consultation was done with both GI and surgery team. Discussed with nutrition; can continue to use G-tube for the time being. Discussed with patient's regarding possible next steps; she is very concerned about patient's recurrence of aspiration again. She does not want to get him discharged to rehab or go home with a clogged J-tube. Review of care everywhere and as per that patient had GJ tube placed in [facility] in March 2023. Transfer was initiated. Discussed with interventional radiology and hospitalist at [facility] ; patient is accepted for transfer. Patient will need to follow-up with radiation oncology for further treatment after discharge from hospital/rehab. Tube feeding to be on hold during transport #CAD status CABG/stent/PVDcontinue on aspirin, Lipitor #PAF, patient NSRnot on any medication #hypertension, stablestable; not on any medication presently #hyperlipidemia, on statin Rx #hypothyroidism, TSH 6.2 on admission #Anemia of chronic disease, hemoglobin at baseline #DM2 on oral medications, well-controlled as of recent hemoglobin A1c of 6 last month #GERD, on PPI #past tobacco abuse DVT prophylaxis. Lovenox subcu DNR as per patient's prior directives. Dispositiontransfer to [facility] for exchange of GJ tube Please note the above document was generated using voice recognition software. It may contain grammatical, syntax or spelling errors. Any formal questions or concerns about the content, text or information contained within the body of this dictation should be directly addressed to the provider for clarification Admission and Anticipated Discharge Date Admission Date: July 03, 2023 Subjective Patient seen and examined at bedside. Comfortable; not in distress. Denies fever, chills, chest pain, shortness of breath, abdominal pain or urinary symptoms. No significant overnight events Review of Systems Review of Systems: All systems reviewed & are unremarkable except as noted in Subjective Results & Data Results & Data Vital Signs (Past 12 Hours) Vital Signs Temp Pulse Resp BP BP Pulse Ox O2 Del Method 07/22/23 15:30 Trach Collar 07/22/23 14:45 36.9 C 62 16 108/65 100 Trach Collar 07/22/23 08:45 Trach Collar 07/22/23 07:38 81 18 94 Trach Collar 07/22/23 07:30 36.8 C 81 16 115/68 94 Trach Collar O2 Flow Rate FiO2 07/22/23 15:30 07/22/23 14:45 07/22/23 08:45 7 07/22/23 07:38 6 28 07/22/23 07:30 6 28 (1) Aspiration pneumonia Laterality: right Lung location: lower lobe of lung
[2023-07-23 07:58] LABS: Creatinine Clr Calc Pharmacy 110.1 ml/min; Est GFR (African American) 115.8 ml/min; Est GFR (Non-African American) 99.9 ml/min
--- NOTE | 2023-07-23 16:00 | Hospitalist Progress Note ---
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 Patient at [facility] as of 06/30, after stay at [facility] s/p discharge from admission at [facility] [place]. Patient was sent to the ED after dislodgment of the trach tube. Circumstances of dislodged trach are unclear. Trach was replaced by ENT on July 12, 2021 Patient was treated with IV cefepime for total of 7 days (end date July 15, 2023) for aspiration pneumonia/trachitis Currently undergoing self- suctioning, aggressive chest PT, hypertonic nebs Patient was awaiting placement to rehab. There was also discussion with patient's about possible discharge home with hospice/home health. Patient's J-tube clogged on July 18, 2023. Prior attending discussed with both GI and surgery; unable to declog. Multiple trials were done by nursing staff to declog. Consultation was done with both GI and surgery team. Discussed with nutrition; can continue to use G-tube for the time being. Discussed with patient's regarding possible next steps; she is very concerned about patient's recurrence of aspiration again. She does not want to get him discharged to rehab or go home with a clogged J-tube. Per prior attending - Review of care everywhere and as per that patient had GJ tube placed in [facility] in March 2023. Transfer was initiated. Patient is accepted for transfer at [facility]. Patient will need to follow-up with radiation oncology for further treatment after discharge from hospital/rehab. Tube feeding to be on hold during transport #CAD status CABG/stent/PVDcontinue on aspirin, Lipitor #PAF, patient NSRnot on any medication #hypertension, stablestable; not on any medication presently #hyperlipidemia, on statin Rx #hypothyroidism, TSH 6.2 on admission #Anemia of chronic disease, hemoglobin at baseline #DM2 on oral medications, well-controlled as of recent hemoglobin A1c of 6 last month #GERD, on PPI #past tobacco abuse DVT prophylaxis. Lovenox subcu DNR as per patient's prior directives. Dispositiontransfer to [facility] for exchange of GJ tube Please note the above document was generated using voice recognition software. It may contain grammatical, syntax or spelling errors. Any formal questions or concerns about the content, text or information contained within the body of this dictation should be directly addressed to the provider for clarification Admission and Anticipated Discharge Date Admission Date: July 03, 2023 Subjective Patient seen and examined at bedside. Comfortable; not in distress. Denies fever, chills, chest pain, shortness of breath, abdominal pain or urinary symptoms. No significant overnight events Physical Exam Physical Exam: Constitutional: Awake, alert oriented x 3; not in distress. Respiratory: Occasional rhonchi heard. Necktracheostomy in place with trach collar Cardiovascular: RRR, no murmur, no edema Vessels: no JVD or carotid bruit Chest: normal inspection of chest Abdomen: normal bowel sounds, soft, nontender, no hepatosplenomegaly, GJ tube in situ. Musculoskeletal: no cyanosis or clubbing, extremities motor strength 5/5 Skin: no rashes, warm and dry normal turgor Neurologic: PERRL, EOMI, accommodation nl, no face palsy, no dysarthria CN's II- XI intact bilaterally and moves all extremities Results & Data Results & Data Vital Signs (Past 12 Hours) Vital Signs Temp Pulse Resp BP Pulse Ox O2 Del Method O2 Flow Rate 07/23/23 14:56 36.8 C 75 16 125/71 100 Trach Collar 07/23/23 09:40 Trach Collar 7 07/23/23 07:26 74 18 97 Trach Collar 07/23/23 07:02 36.8 C 82 16 103/65 94 Trach Collar FiO2 07/23/23 14:56 07/23/23 09:40 07/23/23 07:26 28 07/23/23 07:02 (1) Aspiration pneumonia Laterality: right Lung location: lower lobe of lung
--- NOTE | 2023-07-24 12:44 | Discharge Summary ---
Date of Service July 24, 2023 Admission HPI Per Admitting Provider Chief Complaint: Dislodged tracheostomy tube as per records Primary Care Provider: Dr. Huston History obtained from patient, family, and records. Limited history from patient secondary to nonverbal state secondary to tracheostomy. 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 Patient admitted at [facility] under ENT service for stridor from May 26 to 2023. 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 Patient underwent tracheostomy, direct laryngoscopy and biopsy. 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 Patient declined surgery and chemotherapy recommendations. Patient opted for palliative radiation. Patient discharged to [facility] rehab facility in [place] where he stayed up until June 30, 2023. Patient transferred to the local [facility] 2 days ago to complete rehab. Prior admissions at [facility] and rehab facility in [place] marked by tracheostomy tube dislodgment episodes and aspiration pneumonia requiring treatment. Patient n.p.o. but allowed ice chips as per [employer]SEM[employer] instructions as per . Patient tracheostomy tube noted to be dislodged on routine check last night by [facility] staff. Patient without any complaints as per account. Unsuccessful replacement of dislodged tracheostomy tube. Patient brought to the ER for evaluation. Smaller tracheostomy tube placed by ER provider due to unsuccessful attempt to replace patient's original tube. Junky tracheostomy secretions noted during procedure. Zosyn administered at the ER for possible aspiration pneumonia. Patient denies chest pain, SOB, abdominal pain symptoms. 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 Admission Exam Per Admitting Provider GENERAL: Comfortable, chronically ill, no respiratory distress SKIN: Pallor, warm HEENT: Alopecia, pale palpebral conjunctivae, no ptosis, dry buccal mucosa NECK : Supple, tracheostomy tube in place, no tenderness CHEST : Decreased breath sounds, no tenderness HEART : RRR, no obvious murmurs ABDOMEN: Some distention, G-tube in place nontender EXTREMITIES : No LE swelling/tenderness, no other conspicuous deformities noted NEUROLOGIC : Coherent, no facial asymmetry, no other gross focality Principal Diagnosis Clogged J tube Aspiration pneumonia Discharge Exam Constitutional: Awake, alert oriented x 3; not in distress. Respiratory: Occasional rhonchi heard. Necktracheostomy in place with trach collar Cardiovascular: RRR, no murmur, no edema Vessels: no JVD or carotid bruit Chest: normal inspection of chest Abdomen: normal bowel sounds, soft, nontender, no hepatosplenomegaly, GJ tube in situ. Musculoskeletal: no cyanosis or clubbing, extremities motor strength 5/5 Skin: no rashes, warm and dry normal turgor Neurologic: PERRL, EOMI, accommodation nl, no face palsy, no dysarthria CN's II- XI intact bilaterally and moves all extremities Discharge Data Allergies Allergy/AdvReac Type Severity Reaction Status Date / Time Sulfa (Sulfonamide Allergy Intermediate RASH Verified 07/01/23 18:44 Antibiotics) Consultations 07/02/23 03:24 Consult Otolaryngology (Head and Neck) Routine 07/02/23 16:46 Consult Pulmonology Routine 07/05/23 08:37 Consult Infectious Diseases Routine 07/12/23 04:20 Consult Otolaryngology (Head and Neck) Routine 07/18/23 13:12 Consult Gastroenterology Routine 07/19/23 18:18 Burn CD for patient Routine Ordered Studies 07/01/23 22:56 CT chest diagnostic wo con Stat Hospital Course (1) Aspiration pneumonia: 82 year old gentleman history of laryngeal cancer s/p radiation 2005 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 Patient at [facility] as of 06/30, after stay at [facility] s/p discharge from admission at [facility]. Patient was sent to the ED after dislodgment of the trach tube. Circumstances of dislodged trach are unclear. Trach was replaced by ENT on July 12, 2021 Patient was treated with IV cefepime for total of 7 days (end date July 15, 2023) for aspiration pneumonia/trachitis Currently undergoing self- suctioning, aggressive chest PT, hypertonic nebs Patient was awaiting placement to rehab. There was also discussion with patient's about possible discharge home with hospice/home health. Patient's J-tube clogged on July 18, 2023. Prior attending discussed with both GI and surgery; unable to declog. Multiple trials were done by nursing staff to declog. Consultation was done with both GI and surgery team. Discussed with nutrition; can continue to use G-tube for the time being. Discussed with patient's regarding possible next steps; she is very concerned about patient's recurrence of aspiration again. She does not want to get him discharged to rehab or go home with a clogged J-tube. Per prior attending - Review of care everywhere and as per that patient had GJ tube placed in [facility] in March 2023. Transfer was initiated. Patient is accepted for transfer at [facility]. Getting transferred today. Patient will need to follow-up with radiation oncology for further treatment after discharge from hospital/rehab. Tube feeding to be on hold during transport. #CAD status CABG/stent/PVDcontinue on aspirin, Lipitor #PAF, patient NSRnot on any medication #hypertension, stablestable; not on any medication presently #hyperlipidemia, on statin Rx #hypothyroidism, TSH 6.2 on admission #Anemia of chronic disease, hemoglobin at baseline #DM2 on oral medications, well-controlled as of recent hemoglobin A1c of 6 last month #GERD, on PPI #past tobacco abuse DVT prophylaxis. Lovenox subcu DNR as per patient's prior directives. [facility] Please note the above document was generated using voice recognition software. It may contain grammatical, syntax or spelling errors. Any formal questions or concerns about the content, text or information contained within the body of this dictation should be directly addressed to the provider for clarification Home Health Attestation I certify that this patient is under my care and that I, or a physicians doctor assistant working with me, had a face to-face encounter that meets the home health [id number] encounter requirements with this patient. The encounter with the patient was in whole, or in part, for the following medical condition, which is the primary reason for home health care (list medical condition): I certify that, based on my findings, the following services are medically necessary home health services: My clinical findings support the need for the above services because: Further, I certify that my clinical findings support that this patient is homebound (i.e. absences from home require considerable and taxing effort and are for medical reasons or taoism services or infrequently or of short duration when for other reasons) because: Certification for Home Health Services: Based on the above findings, I certify that this patient is confined to the home and needs intermittent senior living care, physical therapy and/or speech therapy or continues to need occupational therapy. The patient is under my care, and I have initiated the establishment of the plan of care. This patient will be followed by a physician who will periodically review the plan of care. Total Time Total Time Spent Total Time Spent (In Minutes): 35 Discharge Plan Discharge Items [facility]position[facility] Reason For Visit: HCAP, DISLODGED TRACH TUBE Discharge Diagnosis: Pneumonia Dislodged trach tube Activity: Resume your previous activity Non-emergency contact: Primary Care Provider Call non-emergency contact if: you have any medication questions and your symptoms worsen Follow-up/Referrals: PCP,NO [Primary Care Provider] - Diet: Nothing by Mouth Addtl Attending Provider Instructions: Date of Service: July 19, 2023 Current Inpatient Medications Acetaminophen (Acetaminophen 325 Mg Tab) 650 mg PEG Q6H PRN PRN Reason: PAIN/FEVER >101 Stop: 08/01/23 04:25 Albuterol (Albut/Ipratrop 3mg/0.5mg Neb 3 Ml Vial) 3 ml NEB BIDR [facility]; Protocol Stop: 08/01/23 18:59 Last Admin: 07/19/23 07:20 Dose: 3 ml Aspirin (Aspirin 81 Mg Chew) 81 mg PEG DAILY [facility] Stop: 08/01/23 08:59 Last Admin: 07/19/23 09:14 Dose: 81 mg Atorvastatin Calcium (Atorvastatin 10 Mg Tab) 10 mg PEG HS [facility] Stop: 08/01/23 20:59 Last Admin: 07/18/23 20:31 Dose: 10 mg Chlorhexidine Gluconate (Chlorhexidine Gluconate 0.12% 480 Ml) 15 ml MT TID [facility] Stop: 08/11/23 08:59 Last Admin: 07/19/23 14:31 Dose: 15 ml Doxazosin Mesylate (Doxazosin Mesylate Tab 2 Mg Tab) 2 mg PEG HS [facility] Stop: 08/01/23 20:59 Last Admin: 07/18/23 20:31 Dose: 2 mg Enoxaparin Sodium (Enoxaparin Inj 40 Mg/0.4 Ml Syr) 40 mg SQ Q24H [facility] Stop: 08/14/23 19:59 Last Admin: 07/18/23 20:38 Dose: 40 mg Promethazine HCl (Phenergan) 6.25 mg in 50.25 mls @ 201 mls/hr IV Q6H PRN PRN Reason: Nausea And Vomiting Stop: 08/01/23 03:55 Lactobacillus Acidophilus (Lactobacillus Acidophilus 1 Gm Pack) 1 gm PEG DAILY [facility] Stop: 08/01/23 08:59 Last Admin: 07/19/23 09:15 Dose: 1 gm Lansoprazole (Lansoprazole 30 Mg Soltab) 30 mg PEG QAM [facility]; Protocol Stop: 08/01/23 08:59 Last Admin: 07/19/23 09:15 Dose: 30 mg Levothyroxine Sodium (Levothyroxine Sodium 75 Mcg Tablet) 75 mcg PEG DAILYBB [facility] Stop: 08/01/23 06:29 Last Admin: 07/19/23 05:50 Dose: 75 mcg Morphine Sulfate (Morphine Sulfate 2 Mg/Ml Carp) 2 mg IV Q3H PRN PRN Reason: Pain Stop: 07/26/23 04:55 Nutritional Formula (Nutren Liqd 2.0 1,000 Ml Bag) 1,000 ml GT UD [facility]; Protocol Stop: 08/17/23 13:29 Last Admin: 07/19/23 15:33 Dose: 1,000 ml Polyethylene Glycol (Polyethylene (Miralax) 17 Gm Pack) 17 gm PEG DAILY [facility] Stop: 08/02/23 08:59 Last Admin: 07/19/23 09:16 Dose: Not Given Senna/Docusate Sodium (Docusate Sodium/Senna 50/8.6mg Tab) 1 tab PEG QAM [facility] Stop: 08/02/23 08:59 Last Admin: 07/19/23 09:15 Dose: 1 tab Sodium Chloride (Sodium Chlor 7% 4 Ml Neb) 4 ml NEB BIDR [facility] Stop: 08/01/23 18:59 Last Admin: 07/19/23 07:20 Dose: 4 ml Sterile Water (Tube Feeding Water Flush) 175 ml GT Q4H [facility] Stop: 08/17/23 13:12 Last Admin: 07/19/23 16:29 Dose: 175 ml Pending Studies at Discharge: No Stand-Alone Forms: My [facility] Skilled Items Patient informed of condition?: No DNR: Yes Discharge Level of Care: Other Communicable Disease: No Discharge Prognosis: Stable Lines: None Urinary Catheter: No Medications and DC Order Prescriptions: Continued levothyroxine 75 mcg Tablet 75 mcg feeding tube QAM pantoprazole 40 mg Tablet,Delayed Release (Dr/Ec) 40 mg PO QAM Rx Instructions: VIA FEEDING TUBE metformin 1,000 mg Tablet 1,000 mg feeding tube BID amoxicillin 500 mg Tablet 2,000 mg PO UD PRN (Reason: prior to dental appointment) acetaminophen [Tylenol] 325 mg Tablet 650 mg feeding tube Q6H MDD 3 GRAMS APAP/24 HOURS PRN (Reason: PAIN/FEVER >101) atorvastatin 10 mg Tablet 10 mg feeding tube HS aspirin 81 mg Tablet,Chewable 81 mg feeding tube DAILY Lactobacillus rhamnosus GG 10 billion cell Capsule 1 cap feeding tube DAILY doxazosin 2 mg Tablet 2 mg feeding tube HS trolamine salicylate 10 % Cream 1 applic TOPICAL BID Rx Instructions: APPLY TO UPPER AND LOWER EXTREMITIES. DO NOT COVER OR WRAP AREAS. chlorhexidine gluconate 0.12 % Mouthwash 15 ml BUCCAL BID Rx Instructions: SWISH AND SPIT Osmolite 1.5 Yonis 0.06 gram-1.5 kcal/mL Liquid 250 ea feeding tube 5XD Rx Instructions: 250 ML VIA FEEDING TUBE Pantoprazole Liquid 40 mg G-tube DAILY Rx Instructions: STRENGTH 4 MG/ML--DOSE 10 ML DAILY. Discharge Orders: Discharge Order (Routine); Ordered 07/21/23 Ordered By: Jcarlos Hein Admission Data Admit Date/Time: 07/03/23 14:37 Attending Provider: Malu Barr Admit Provider: Carlita Armstrong Primary Care Provider: PCP,NO Other Providers: Ansley Anderson; Deya Kendrick; Josse Cortes; Jennifer Gallagher; [facility] [place]; Brandon Doss II; [facility]; Ry Bergeron; Sara Montenegro
== END 2023-07-24 13:35 | disposition short-term general hospital (02) | DRG 177 ==
LOC: ED 18:26 → 3W 18:26 → SUATTDRO 07-03 14:37